=== PATIENT | male | born 1955 ===

== ENCOUNTER 2016-08-09 14:10 | Inpatient (IN) | payer MEDICARE ==
[2016-08-09 14:10] VITALS: PULSE 66
[2016-08-09] MEDS ORDERED: Morphine 4 MG/ML VIAL IVP ONE (14:59)
--- NOTE | 2016-08-09 15:38 | ED PDOC ---
Lower Extremity Pain/Injury Time Seen by Provider: 08/09/16 14:37 Chief Complaint (Nursing): Lower Extremity Problem/Injury Chief Complaint (Provider): Right leg pain History Per: Patient History/Exam Limitations: no limitations Onset/Duration Of Symptoms: Days (4) Current Symptoms Are (Timing): Still Present Severity: Moderate Additional History Per: Patient Additional Complaint(s): The pt is a 60yo male, PMHx of end stage renal disease on dialysis, multiple falls, chronic radiculopathy on right leg, chronic neuropathy, presents to the ED for evaluation s/p a fall sustained while in the shower 4 days ago. Pt reports sometimes his knee "gives out" and that was the reason for his fall; pt states he injured his right leg, and has bruising in his abdomen and pelvis. Pt also reports associated right thigh pain, right foot pain but denies any back pain. Also denies any LOC, head injuries, syncope, chest pain, shortness of breath. Of note, pt is currently on dialysis with visits every Tuesday, and Tuesday - states his last dialysis was done on 08/03/16 and he has missed the two subsequent dialysis visits since then. Pt offers no additional medical complaints. PCP: Dr. rBower Welt Wheeler: Dr. Rodriguez Past Medical History Reviewed: Historical Data, Nursing Documentation, Vital Signs Vital Signs: Last Vital Signs Temp 97.9 F 08/09/16 14:13 Pulse 84 08/09/16 14:13 Resp 20 08/09/16 14:13 BP 152/81 H 08/09/16 14:13 Pulse Ox 98 08/09/16 14:13 - Medical History PMH: Anemia, Anxiety, Arthritis, Atrial Fibrillation, CAD, CHF, Depression, Diabetes, Fractures (Right foot surgery), HTN, Hyperlipidemia, Pneumonia, End Stage Renal Disease, Chronic Kidney Disease, Sleep Apnea, TIA (2010) Denies: COPD, Hypercholesterolemia, Hypothyroidism, Rheumatoid Arthritis - Family History Family History: States: Unknown Family Hx - Immunization History Hx Tetanus Toxoid Vaccination: No Hx Influenza Vaccination: Yes (2013) Hx Pneumococcal Vaccination: Yes (2013) - Home Medications Home Medications: Ambulatory Orders Medication Instructions Recorded Alprazolam 0.5 mg PO HS #0 tablet 04/12/15 Metoprolol Tartrate [Lopressor] 50 mg PO BID #0 tab 04/12/15 cloNIDine [Catapres] 0.2 mg PO TID 09/29/15 Aspirin [Ecotrin] 81 mg PO DAILY 08/09/16 GlipiZIDE [Glucotrol] 10 mg PO BID 08/09/16 Sertraline [Zoloft] 50 mg PO HS 08/09/16 Sevelamer Carbonate [Renvela] 2,400 mg PO TID 08/09/16 Simvastatin [Zocor] 20 mg PO HS 08/09/16 - Allergies Allergies/Adverse Reactions: Allergies Allergy/AdvReac Type Severity Reaction Status Date / Time Penicillins Allergy ANAPHYLAXIS Verified 01/14/16 16:53 propofol Allergy ANAPHYLAXIS Verified 01/14/16 16:53 vitamin K2 Allergy SHORTNESS Verified 01/14/16 16:53 OF BREATH diphenhydramine HCl AdvReac ITCHING Verified 01/14/16 16:53 [From Benadryl] Review of Systems ROS Statement: Except As Marked, All Systems Reviewed And Found Negative Cardiovascular: Negative for: Chest Pain Respiratory: Negative for: Shortness of Breath Gastrointestinal: Positive for: Other (bruising to lower abdomen). Negative for : Abdominal Pain Musculoskeletal: Positive for: Leg Pain (right thigh pain), Foot Pain (right foot), Other (bruising to pelvis) Neurological: Negative for: Other (head injury, loss of consciousness) Physical Exam - Reviewed Nursing Documentation Reviewed: Yes Vital Signs Reviewed: Yes - Physical Exam Appears: Positive for: Well, Non-toxic, No Acute Distress Head Exam: Positive for: ATRAUMATIC, NORMAL INSPECTION, NORMOCEPHALIC Skin: Positive for: Normal Color, Warm, DRY Eye Exam: Positive for: Normal appearance Neck: Positive for: Normal, Supple Cardiovascular/Chest: Positive for: Regular Rate, Rhythm Respiratory: Positive for: Normal Breath Sounds. Negative for: Respiratory Distress Gastrointestinal/Abdominal: Positive for: Normal Exam, Soft, Other (ecchymosis noted to lower adomen and pelvis). Negative for: Tenderness Back: Positive for: Normal Inspection Extremity: Positive for: Normal ROM, Other (shunt on left forearm noted, normal appearance. ). Negative for: Deformity, Swelling Neurologic/Psych: Positive for: Alert, Oriented - Laboratory Results Result Diagrams: 08/09/16 15:42 08/09/16 15:42 - ECG ECG: Positive for: Interpreted By Me, Viewed By Me ECG Rhythm: Positive for: Normal QRS, Normal ST Segment, Atrial Fibrillation Rate: 80 O2 Sat by Pulse Oximetry: 98 (RA) Pulse Ox Interpretation: Normal - Physician Consult Information Time Consulting Physican Contacted: 16:00 Physician Contacted: Andrew Rodriguez Medical Decision Making Medical Decision Making: Time: 1450 Impression: 1. Multiple falls due to chronic neuropathy 2. Abdomen and pelvis injury r/o fracture and intrabdominal bleeding 3. Missed dialysis in setting of chronic renal faliure, possible volume overload , r/o emergent dialysis 4. Hyperkalemia Plan: -- CT AP -- XR Right foot -- XR Right thigh -- Bloodwork -- Morphine 4 mg IVP Reassess renal consult Dr Rodriguez urgent constanza;ysis Xray pelvis no acute findings Xray chest no acute findings Xray foot right reviewed: hardware failure notes. no acute findings- clinically pt complaining of toe pain from recent fall. CT abdomen pending Scribe Attestation: Documented by Amy Marshall acting as a scribe for Elliott Torres MD. Provider Attestation: All medical record entries made by the Scribe were at my direction and personally dictated by me. I have reviewed the chart and agree that the record accurately reflects my personal performance of the history, physical exam, medical decision making, and the department course for this patient. I have also personally directed, reviewed, and agree with the discharge instructions and disposition. Disposition - Clinical Impression Clinical Impression: Renal failure (ARF), acute on chronic, Hyperkalemia, Multiple falls - Patient ED Disposition Is Patient to be Admitted: Yes Discussed With DrRosa: Alverto Brower Doctor Will See Patient In The: ED Counseled Patient/Family Regarding: Studies Performed, Diagnosis - Disposition Disposition Time: 16:20 Condition: FAIR - Pt Status Changed To: Hospital Disposition Of: Inpatient - Admit Certification Admit to Inpatient:: After my assessment, the patient will require hospitalization for at least two midnights. This is because of the severity of symptoms shown, intensity of services needed, and/or the medical risk in this patient being treated as an outpatient. - POA Present On Arrival: Falls Or Trauma
[2016-08-09 16:04] LABS: CALCIUM 8.8 mg/dL (8.4-10.2)
[2016-08-09 16:22] LABS: BASO # 0.1 K/uL (0.0-0.2); BASO % 1.1 % (0.0-2.0); EOS # 0.3 K/uL (0.0-0.7); EOS % 3.1 % (0.0-4.0); HEMOGLOBIN 10.5 g/dL (12.0-18.0); LYMPH # 0.5 K/uL (1.0-4.3); LYMPH % 6.3 % (20.0-40.0); MEAN CELL VOLUME 95.1 fl (80.0-94.0); MEAN CORPUSCULAR HEMOGLOBIN 30.9 pg (27.0-31.0); MEAN CORPUSCULAR HGB CONC 32.5 g/dL (33.0-37.0); MEAN PLATELET VOLUME 9.7 fl (7.2-11.7); MONO # 0.9 K/uL (0.0-0.8); MONO % 11.5 % (0.0-10.0); NEUT # 6.4 K/uL (1.8-7.0); NRBC % 0.1 % (0.0-0.0); PLATELET COUNT 93 K/uL (130-400); RED CELL DISTRIBUTION WIDTH 17.3 % (11.5-14.5); WHITE BLOOD COUNT 8.2 K/uL (4.8-10.8)
[2016-08-09] MEDS ORDERED: Insulin Regular 100 units/ml IV STA (16:23)
[2016-08-09] MEDS ORDERED: Albuterol 0.083% Inhal Sol (2.5 mg/3 mL) UD INH STA (16:23)
[2016-08-09] MEDS ORDERED: Sod Polystyrene Sulf 15 gm/60 ml Oral Susp PO ONE (16:24)
[2016-08-09] MEDS ORDERED: Calcium Gluconate 4.6 MEQ in Sodium Chloride 0.9% 100 ML IV ONE (16:30)
[2016-08-09] MEDS ORDERED: Dextrose 50% SYRINGE Inj (50 ml) IVP ONE ×3 (16:30→18:45)
--- NOTE | 2016-08-09 16:30 | RAD ---
PROCEDURE: Right Foot Radiographs. HISTORY: Right leg pain, unspecified toe injury COMPARISON: None. FINDINGS: BONES: Evidence of hardware failure. Disruption of the endplate traversing a healed fracture of the proximal right 5th metatarsal. Fenestrated screws associated with the endplate in expected location without evidence of screw failure. JOINTS: Normal. SOFT TISSUES: Diffuse soft tissue swelling OTHER FINDINGS: None. IMPRESSION: Soft tissue swelling without acute articular or osseous abnormality. Evidence of hardware failure. The 5th metatarsal and plate is disrupted.
--- NOTE | 2016-08-09 16:32 | RAD ---
PROCEDURE: Radiographs of the pelvis. HISTORY: pelvic pain injury. Macro and T COMPARISON: None. FINDINGS: BONES: Pelvic Bones: Unremarkable. Hips: Hips mild and symmetrical degenerative changes both hips JOINTS: Sacroiliac Joints: Unremarkable Pubic Symphysis: Unremarkable. OTHER FINDINGS: Incompletely visualized hardware related to laminectomy and fusion lower lumbar spine IMPRESSION: No acute findings related to/accounting for the clinical presentation.
--- NOTE | 2016-08-09 16:33 | RAD ---
HISTORY: SOB COMPARISON: Comparison made with prior chest radiograph 02/06/2016 FINDINGS: LUNGS: Poor inspiration with low lung volumes, minor crowded bronchovascular markings and bibasilar atelectasis PLEURA: No significant pleural effusion identified, no pneumothorax apparent. CARDIOVASCULAR: Heart remains enlarged OSSEOUS STRUCTURES: No significant abnormalities. VISUALIZED UPPER ABDOMEN: Normal. OTHER FINDINGS: None. IMPRESSION: Cardiomegaly. Poor inspiration with low lung volumes, minor crowded bronchovascular markings and minor bibasilar atelectasis
[2016-08-09] MEDS ORDERED: Albuterol 0.083% Inhal Sol (2.5 mg/3 mL) UD ONE (16:52)
[2016-08-09] MEDS ORDERED: Sod Polystyrene Sulf 15 gm/60 ml Oral Susp ONE (16:52)
[2016-08-09] MEDS ORDERED: Dextrose 50% SYRINGE Inj (50 ml) ONE ×3 (16:52→18:43)
[2016-08-09 17:37] LABS: INR 1.2 (0.9-1.2); PARTIAL THROMBOPLASTIN TIME 39.5 Seconds (25.6-37.1); PROTHROMBIN TIME 13.9 Seconds (9.8-13.1)
[2016-08-09 17:54] LABS: BASOPHIL 1 % (0-2); EOSINOPHIL 5 % (0-7); LYMPHOCYTE 8 % (20-50); MONOCYTE 12 % (0-10); NEUTROPHIL 74 % (42-75); TOTAL CELLS COUNTED 100
[2016-08-09 17:55] LABS: ANISOCYTOSIS SLIGHT; PLATELET ESTIMATE SLIGHTLY DECREASED (NORMAL)
--- NOTE | 2016-08-09 22:43 | CP.PCM.HP ---
History of Present Illness - History of Present Illness History of Present Illness: 60 years old H/M with h/o multiple medical problems , presented with frequent falls, and multiple skin contusions. Pt. has bilateral lower ext weakness rt. > lt of lower ext.. Pt. has been having progressive weakness of both lower extremities due to both radiculopathy and prepheral neuropathy. he had spine surgery done few years ago. Review of Systems - EENT Eyes: Other - Reproductive: Male Additional comments: pain and itching of the foreskin of the penis. - Neurological Additional comments: bilateral lowe ext weakness rt>lt Past Patient History - Infectious Disease Hx of Infectious Diseases: None - Past Medical History & Family History Past Medical History?: Yes - Past Social History Smoking Status: Never Smoked - CARDIAC Hx Atrial Fibrillation: Yes Hx Congestive Heart Failure: Yes Hx Hypercholesterolemia: No Hx Hypertension: Yes - PULMONARY Hx Chronic Obstructive Pulmonary Disease (COPD): No Hx Pneumonia: Yes Hx Sleep Apnea: Yes - NEUROLOGICAL Hx Transient Ischemic Attacks (TIA): Yes (2010) - HEENT Hx HEENT Problems: Yes - RENAL Hx Chronic Kidney Disease: Yes - ENDOCRINE/METABOLIC Hx Hypothyroidism: No - HEMATOLOGICAL/ONCOLOGICAL Hx Anemia: Yes - INTEGUMENTARY Hx Dermatological Problems: Yes (Diabetic ulcers) - MUSCULOSKELETAL/RHEUMATOLOGICAL Hx Arthritis: Yes Hx Fractures: Yes (Right foot surgery) Hx Rheumatoid Arthritis: No - GASTROINTESTINAL Hx Gastrointestinal Disorders: Yes Hx Constipation: Yes Hx Diarrhea: Yes - GENITOURINARY/GYNECOLOGICAL Hx Genitourinary Disorders: Yes - PSYCHIATRIC Hx Anxiety: Yes Hx Depression: Yes - SURGICAL HISTORY Hx Surgeries: Yes Hx Amputation: Yes (left hand) - ANESTHESIA Hx Anesthesia: Yes Hx Anesthesia Reactions: Yes (Coded x 2) Hx Malignant Hyperthermia: No Meds Allergies/Adverse Reactions: Allergies Allergy/AdvReac Type Severity Reaction Status Date / Time Penicillins Allergy ANAPHYLAXIS Verified 01/14/16 16:53 propofol Allergy ANAPHYLAXIS Verified 01/14/16 16:53 vitamin K2 Allergy SHORTNESS Verified 01/14/16 16:53 OF BREATH diphenhydramine HCl AdvReac ITCHING Verified 01/14/16 16:53 [From Benadryl] Physical Exam - Head Exam Head Exam: ATRAUMATIC, NORMOCEPHALIC - Eye Exam Additional comments: Bilateral decreased visual acuity. - ENT Exam ENT Exam: Mucous Membranes Moist - Respiratory Exam Respiratory Exam: Clear to Auscultation Bilateral, NORMAL BREATHING PATTERN - Cardiovascular Exam Cardiovascular Exam: REGULAR RHYTHM - GI/Abdominal Exam GI & Abdominal Exam: Normal Bowel Sounds, Soft - Extremities Exam Additional comments: Rt. more than Lt lower ext. weakness - Skin Additional comments: Multiple skin contusions Results - Vital Signs Recent Vital Signs: Last Vital Signs Temp 98.9 F 08/09/16 20:19 Pulse 98 H 08/09/16 20:19 Resp 18 08/09/16 20:19 BP 137/90 08/09/16 20:19 Pulse Ox 95 08/09/16 20:19 - Labs Result Diagrams: 08/09/16 15:42 08/09/16 15:42 Labs: Laboratory Results - last 24 hr 08/09/16 21:14 POC Glucose (mg/dL) 98 Assessment & Plan - Assessment and Plan (Free Text) Assessment: Frequent falls Rt. > Lt lower ext weakness Hyperkalemia ESRD on HD Chronic a.fib IDDM Plan: Stat HD Kayxelate Continue current medications PT - Date & Time Date: 08/09/16 Time: 15:00
[2016-08-10] MEDS ORDERED: Dextrose 50% SYRINGE Inj (50 ml) IVP STA (05:33)
[2016-08-10] MEDS ORDERED: Insulin Regular 100 units/ml SC SCH (07:30)
--- NOTE | 2016-08-10 08:23 | CT ---
PROCEDURE: CT Abdomen and Pelvis bowel contrast. HISTORY: abd injury fall COMPARISON: 04/08/2015. TECHNIQUE: Contiguous axial images of the abdomen and pelvis. No oral or IV contrast given. Coronal and Sagittal reformats generated. Please note that due to lack of intravenous and oral contrast, evaluation of soft tissue structures and bowel is limited. Radiation dose: Total exam DLP = 1128.46 mGy-cm. This CT exam was performed using one or more of the following dose reduction techniques: Automated exposure control, adjustment of the mA and/or kV according to patient size, and/or use of iterative reconstruction technique. FINDINGS: LOWER THORAX: Mild bibasilar atelectatic changes noted. Mildly enlarged heart. No pericardial effusion. Coronary arterial calcifications. LIVER: Unenhanced appearance of the liver is relatively unremarkable. Question of irregularity of the liver contour. No intrahepatic biliary ductal dilatation. Mild perihepatic ascites. Mild periportal edema GALLBLADDER AND BILE DUCTS: Moderately enlarged gallbladder. Small amount surrounding fluid. PANCREAS: Unremarkable. No mass. No ductal dilatation. SPLEEN: Enlarged spleen ADRENALS: Unremarkable. KIDNEYS AND URETERS: Shrunken lung kidneys bilaterally. Possible sub centimeter hypodensity in the interpolar segment of the right kidney likely cysts. No hydronephrosis. The distal ureters are suboptimally seen. BLADDER: Bladder is near completely collapsed limiting evaluation. REPRODUCTIVE: Seminal vesicles are some are symmetrical. The prostate is not enlarged. APPENDIX: Unremarkable. BOWEL: No bowel obstruction. Collapsed distal colon limits evaluation. Small amount of stool seen in the distal ileum which could represent ileocecal valve dysfunction. Moderately distended stomach. Questionable thickening of the wall of the 1st portion of the duodenum but some amount of fluid surrounding it. Minimal fluid seen along both pericolic gutters. PERITONEUM: Small amount of fluid as mentioned before. No definite intra peritoneal free air. LYMPH NODES: Scattered retroperitoneal lymphadenopathy seen. Scattered small bilateral pelvic wall lymph nodes also noted. Mildly enlarged inguinal region lymph nodes. VASCULATURE: Scattered calcification of the abdominal aorta noted. Calcified renal, pelvic and mesenteric vessels. BONES: Degenerate changes of the osseous structures. L4-L5 fixation rods noted. Severe narrowing of the L4-L5 intervertebral joint space. Possible spacer versus calcified disc at L3-L4. OTHER FINDINGS: Previously identified left inner thigh graft is not seen. IMPRESSION: Moderately enlarged gallbladder with small amount of surrounding fluid. Clinical correlation requested for evaluation of acute cholecystitis. No bowel obstruction however, please note that due to lack of administration of IV and oral contrast, evaluation of bowel is somewhat limited. Questionable thickening of the wall of the 1st portion of the duodenum with surrounding fluid noted. Underlying inflammation should be considered. Given history trauma, injury should also be considered. Small amount of perihepatic ascites. Questionable nodular contour of the liver. Splenomegaly as before. Scattered lymphadenopathy as described above. Please note that this report is in general agreement with the preliminary report provided by [facility].
[2016-08-10 09:22] VITALS: BMI 31.4
--- NOTE | 2016-08-10 09:50 | CARD ---
APPROVED REPORT EKG Measurement Heart [id number] <Conclusion> Atrial fibrillation Left anterior fascicular block Anterior infarct, age undetermined Abnormal ECG
[2016-08-10] MEDS: Dextrose 50% SYRINGE Inj (50 ml) IVP PRN ×2 (12:03→15:51)
--- NOTE | 2016-08-10 14:37 | CP.PCM.CON ---
History of Present Illness - History of Present Illness History of Present Illness: 60 y/o male with ESRD on maintenance HD, CHFm chronic A.fib, IDDM, chronic Lt foot ulcer B/L leg weakness Pt was dialysed last pm. K+ was 6.8 was admitted yesterday after he sustained a fall & missed his scheduled dialysis. Past Patient History - Infectious Disease Hx of Infectious Diseases: None - Past Medical History & Family History Past Medical History?: Yes - Past Social History Smoking Status: Never Smoked - CARDIAC Hx Atrial Fibrillation: Yes Hx Congestive Heart Failure: Yes Hx Hypercholesterolemia: No Hx Hypertension: Yes - PULMONARY Hx Chronic Obstructive Pulmonary Disease (COPD): No Hx Pneumonia: Yes Hx Sleep Apnea: Yes - NEUROLOGICAL Hx Transient Ischemic Attacks (TIA): Yes (2010) - HEENT Hx HEENT Problems: Yes - RENAL Hx Chronic Kidney Disease: Yes - ENDOCRINE/METABOLIC Hx Hypothyroidism: No - HEMATOLOGICAL/ONCOLOGICAL Hx Anemia: Yes - INTEGUMENTARY Hx Dermatological Problems: Yes (Diabetic ulcers) - MUSCULOSKELETAL/RHEUMATOLOGICAL Hx Arthritis: Yes Hx Fractures: Yes (Right foot surgery) Hx Rheumatoid Arthritis: No - GASTROINTESTINAL Hx Gastrointestinal Disorders: Yes Hx Constipation: Yes Hx Diarrhea: Yes - GENITOURINARY/GYNECOLOGICAL Hx Genitourinary Disorders: Yes - PSYCHIATRIC Hx Anxiety: Yes Hx Depression: Yes - SURGICAL HISTORY Hx Surgeries: Yes Hx Amputation: Yes (left hand) - ANESTHESIA Hx Anesthesia: Yes Hx Anesthesia Reactions: Yes (Coded x 2) Hx Malignant Hyperthermia: No Meds Allergies/Adverse Reactions: Allergies Allergy/AdvReac Type Severity Reaction Status Date / Time Penicillins Allergy ANAPHYLAXIS Verified 01/14/16 16:53 propofol Allergy ANAPHYLAXIS Verified 01/14/16 16:53 vitamin K2 Allergy SHORTNESS Verified 01/14/16 16:53 OF BREATH diphenhydramine HCl AdvReac ITCHING Verified 01/14/16 16:53 [From Benadryl] - Medications Medications: Current Medications Alprazolam (Xanax) 0.5 mg PO HS [facility] Aspirin (Ecotrin) 81 mg PO DAILY [facility] Last Admin: 08/10/16 09:37 Dose: 81 mg Atorvastatin Calcium (Lipitor) 10 mg PO HS [facility] Clonidine HCl (Catapres) 0.2 mg PO TID [facility] Last Admin: 08/10/16 13:14 Dose: 0.2 mg Dextrose (Dextrose 50% Inj) 50 ml IVP PRN PRN PRN Reason: Hypoglycemia Last Admin: 08/10/16 12:03 Dose: 50 ml Heparin Sodium (Porcine) (Heparin) 5,000 units SC Q12 [facility] PRN Reason: Protocol Last Admin: 08/10/16 09:37 Dose: 5,000 units Hydromorphone HCl (Dilaudid) 1 mg IVP Q4 PRN PRN Reason: Pain, severe (8-10) Last Admin: 08/10/16 13:29 Dose: 1 mg Vancomycin HCl 500 mg/ Sodium (Chloride) 100 mls @ 100 mls/hr IVPB TTS [facility] Last Admin: 08/10/16 09:36 Dose: 100 mls/hr Metoprolol Tartrate (Lopressor) 50 mg PO BID [facility] Last Admin: 08/10/16 09:35 Dose: 50 mg Mupirocin (Bactroban Ointment) 1 applic TOP BID [facility] Last Admin: 08/10/16 13:15 Dose: 1 applic Sertraline HCl (Zoloft) 50 mg PO HS [facility] Sevelamer HCl (Renagel) 2,400 mg PO TID [facility] Last Admin: 08/10/16 13:15 Dose: 2,400 mg Physical Exam - Constitutional Appears: No Acute Distress - Head Exam Head Exam: ATRAUMATIC, NORMOCEPHALIC - Eye Exam Additional comments: No icterus - ENT Exam ENT Exam: Mucous Membranes Dry - Neck Exam Additional comments: JVD + - Respiratory Exam Additional comments: Lungs clear - Cardiovascular Exam Cardiovascular Exam: Irregular Rhythm - GI/Abdominal Exam GI & Abdominal Exam: Soft - Extremities Exam Additional comments: 1+ b/l pedal edema. Lt foot is dressed Results - Vital Signs Recent Vital Signs: Last Vital Signs Temp 97.6 F 08/10/16 08:16 Pulse 73 08/10/16 13:14 Resp 20 08/10/16 08:16 BP 127/77 08/10/16 13:14 Pulse Ox 100 08/10/16 08:16 - Labs Result Diagrams: 08/09/16 15:42 08/09/16 15:42 Labs: Laboratory Results - last 24 hr 08/09/16 08/09/16 08/09/16 17:51 18:01 18:40 POC Glucose (mg/dL) 45 L 116 H 47 L 08/09/16 08/10/16 08/10/16 21:14 05:25 06:19 POC Glucose (mg/dL) 98 38 L* 89 08/10/16 08/10/16 08/10/16 10:56 11:28 11:52 POC Glucose (mg/dL) 50 L 54 L 54 L 08/10/16 12:28 POC Glucose (mg/dL) 125 H Assessment & Plan - Assessment and Plan (Free Text) Assessment: ESRD on [facility] HD Hx/o CHF, Volume controlled Chr. A>fib IDDM S/P fall Plan: Stable on dialysis. Will continue dialysis TTS
--- NOTE | 2016-08-10 16:08 | CP.PCM.PN ---
Subjective - Date & Time of Evaluation Date of Evaluation: 08/10/16 Time of Evaluation: 10:30 - Subjective Subjective: blood sugar was dropping to 50 . pt. was slightly confused. Objective - Vital Signs/Intake and Output Vital Signs (last 24 hours): Temp Pulse Resp BP Pulse Ox 98.5 F 81 18 116/58 L 96 08/10/16 16:03 08/10/16 16:03 08/10/16 16:03 08/10/16 16:03 08/10/16 16:03 - Medications Medications: Current Medications Alprazolam (Xanax) 0.5 mg PO HS [facility] Aspirin (Ecotrin) 81 mg PO DAILY [facility] Last Admin: 08/10/16 09:37 Dose: 81 mg Atorvastatin Calcium (Lipitor) 10 mg PO HS [facility] Clonidine HCl (Catapres) 0.2 mg PO TID [facility] Last Admin: 08/10/16 13:14 Dose: 0.2 mg Dextrose (Dextrose 50% Inj) 50 ml IVP PRN PRN PRN Reason: Hypoglycemia Last Admin: 08/10/16 15:51 Dose: 50 ml Heparin Sodium (Porcine) (Heparin) 5,000 units SC Q12 [facility] PRN Reason: Protocol Last Admin: 08/10/16 09:37 Dose: 5,000 units Hydromorphone HCl (Dilaudid) 1 mg IVP Q4 PRN PRN Reason: Pain, severe (8-10) Last Admin: 08/10/16 13:29 Dose: 1 mg Vancomycin HCl 500 mg/ Sodium (Chloride) 100 mls @ 100 mls/hr IVPB TTS [facility] Last Admin: 08/10/16 09:36 Dose: 100 mls/hr Metoprolol Tartrate (Lopressor) 50 mg PO BID [facility] Last Admin: 08/10/16 09:35 Dose: 50 mg Mupirocin (Bactroban Ointment) 1 applic TOP BID [facility] Last Admin: 08/10/16 13:15 Dose: 1 applic Sertraline HCl (Zoloft) 50 mg PO HS [facility] Sevelamer HCl (Renagel) 2,400 mg PO TID [facility] Last Admin: 08/10/16 13:15 Dose: 2,400 mg - Labs Labs: PT 13.9 Seconds (9.8-13.1) H 08/09/16 15:42 INR 1.2 (0.9-1.2) 08/09/16 15:42 APTT 39.5 Seconds (25.6-37.1) H 08/09/16 15:42 - Head Exam Head Exam: ATRAUMATIC, NORMOCEPHALIC - Eye Exam Eye Exam: EOMI, PERRL - ENT Exam ENT Exam: Mucous Membranes Moist, Normal Exam - Neck Exam Neck Exam: Full ROM - Respiratory Exam Respiratory Exam: Clear to Ausculation Bilateral, NORMAL BREATHING PATTERN - Cardiovascular Exam Cardiovascular Exam: Irregular Rhythm Assessment and Plan - Assessment and Plan (Free Text) Assessment: Hypoglycemia Frequent falls Rt. > Lt lower ext weakness Hyperkalemia ESRD on HD Chronic a.fib NIDDM Plan: D50 PRN for blood sugar Physical therapy Continue current medications
[2016-08-11] MEDS: Dextrose 50% SYRINGE Inj (50 ml) IVP PRN (05:34)
--- NOTE | 2016-08-11 09:26 | PQF CHF ---
This form is a permanent part of the medical record 08/11/16 Dr. Brower, In the H&P under the the [facility] template there is documentation of Hx CHF ( yes). Please clarify the type and acuity of heart failure if known. Clarification of your documentation is requested to better reflect the severity of illness and intensity of treatment of your patient. Indicators present [x] Diagnosis of a history of CHF [] BNP > 200 [] Imaging Finding of Pulmonary Edema /Pleural Effusions [] Fluid/Volume Overload [] Pitting edema [] Ejection Fraction < 40% (Indicative of Systolic Heart Failure) [] Ejection Fraction > 40% (Indicative of Diastolic Heart Failure) [] Dyspnea / Orthopenea / Paroxysmal Nocturnal Dyspnea [] Other: Location in the medical record that reflects the above clinical findings: [] Treatment Provided: [] PHYSICIAN'S RESPONSE Based on your medical judgment of the clinical indicators outlined above, are you treating this patient for a known or suspected: [] Acute CHF [] Systolic [] Diastolic [] Combined [] Chronic CHF [] Systolic [] Diastolic [] Combined [] Acute on Chronic CHF []Systolic [] Diastolic [] Combined [] CHF due hypertension [] Acute systolic []Chronic systolic [] Acute/ chronic systolic [] Other, please indicate: [] [] If Unable to Determine, please check the box, sign and date. Present On Admission (POA) Indicator: [] Present at the time of admission [] Not present at the time of admission [] Clinically Undetermined In responding to this query, please exercise your independent professional judgment. The fact that a question is asked does not imply that any particular answer is desired or expected. Thank you for your clarification on this documentation. If you have any questions please call: EXTENSION [phone] * Thank you, Carloe Sheets RN CDMP MTDD
--- NOTE | 2016-08-11 10:05 | CP.PCM.PN ---
Subjective - Date & Time of Evaluation Date of Evaluation: 08/11/16 Time of Evaluation: 10:01 - Subjective Subjective: Patient and bed appeared to be comfortable No chest pain no shortness of breath Patient noncompliance with the dialysis he keep missing intermittently hemodialysis. Physical exam Patient awake not in any distress conscious Chest no significant problems Heart no rubs irregular with chronic A. fib Abdomen soft Extremity trace edema and just about all his toes having some degree of blisters black in color Impression and plan Patient need hemodialysis throughout her way I spoke to the nurse order was given To repeat stat BMP and complete metabolic profile and CBC Ultrafiltration about 3000 KG needed to be removed Potassium bath 2 mEq and less potassium came very high then we will change it to 1 mEq Bicarbonate bath 34 Calcium bath 2.5 Patient admitted with hyperkalemia missing hemodialysis volume overloaded also peripheral vascular disease diabetes mellitus chronic A. fib. Recurrent fall Objective - Vital Signs/Intake and Output Vital Signs (last 24 hours): Temp Pulse Resp BP Pulse Ox 97.9 F 76 20 113/69 97 08/11/16 08:38 08/11/16 08:38 08/11/16 08:38 08/11/16 08:38 08/11/16 08:38 - Medications Medications: Current Medications Alprazolam (Xanax) 0.5 mg PO HS [facility] Last Admin: 08/10/16 21:23 Dose: 0.5 mg Aspirin (Ecotrin) 81 mg PO DAILY [facility] Last Admin: 08/11/16 09:11 Dose: 81 mg Atorvastatin Calcium (Lipitor) 10 mg PO HS [facility] Last Admin: 08/10/16 21:21 Dose: 10 mg Clonidine HCl (Catapres) 0.2 mg PO TID [facility] Last Admin: 08/11/16 09:11 Dose: Not Given Dextrose (Dextrose 50% Inj) 50 ml IVP PRN PRN PRN Reason: Hypoglycemia Last Admin: 08/11/16 05:34 Dose: 50 ml Heparin Sodium (Porcine) (Heparin) 5,000 units SC Q12 [facility] PRN Reason: Protocol Last Admin: 08/11/16 09:10 Dose: 5,000 units Hydromorphone HCl (Dilaudid) 1 mg IVP Q4 PRN PRN Reason: Pain, severe (8-10) Last Admin: 08/10/16 13:29 Dose: 1 mg Vancomycin HCl 500 mg/ Sodium (Chloride) 100 mls @ 100 mls/hr IVPB TTS [facility] Last Admin: 08/10/16 09:36 Dose: 100 mls/hr Metoprolol Tartrate (Lopressor) 50 mg PO BID [facility] Last Admin: 08/11/16 09:11 Dose: Not Given Mupirocin (Bactroban Ointment) 1 applic TOP BID [facility] Last Admin: 08/11/16 09:10 Dose: 1 applic Sertraline HCl (Zoloft) 50 mg PO HS [facility] Last Admin: 08/10/16 21:21 Dose: 50 mg Sevelamer HCl (Renagel) 2,400 mg PO TID [facility] Last Admin: 08/11/16 09:10 Dose: 2,400 mg - Labs Labs: PT 13.9 Seconds (9.8-13.1) H 08/09/16 15:42 INR 1.2 (0.9-1.2) 08/09/16 15:42 APTT 39.5 Seconds (25.6-37.1) H 08/09/16 15:42 - Constitutional Appears: No Acute Distress - Respiratory Exam Respiratory Exam: absent: Chest Wall Tenderness - Cardiovascular Exam Cardiovascular Exam: absent: Rubs - Back Exam Back Exam: absent: CVA tenderness (L), CVA tenderness (R) - Neurological Exam Neurological Exam: Alert
[2016-08-11] MEDS ORDERED: Epoetin Alfa 20000 UNIT/ML (RENAL DOSE) IV SCH (10:12)
[2016-08-11 11:04] LABS: HEMOGLOBIN 9.9 g/dL (12.0-18.0); MEAN CELL VOLUME 94.4 fl (80.0-94.0); MEAN CORPUSCULAR HEMOGLOBIN 31.1 pg (27.0-31.0); RBC 3.2 Mil/uL (4.40-5.90); RED CELL DISTRIBUTION WIDTH 17.7 % (11.5-14.5)
[2016-08-11 11:14] LABS: ALB/GLOB RATIO 0.8 (1.0-2.1); ALBUMIN 3.6 g/dL (3.5-5.0); CALCIUM 8.8 mg/dL (8.4-10.2)
[2016-08-11] MEDS ORDERED: Sod Polystyrene Sulf 15 gm/60 ml Oral Susp PO ONE (12:15)
--- NOTE | 2016-08-11 17:18 | RAD ---
PROCEDURE: Radiographs of the Chest and Right Ribs. HISTORY: fall COMPARISON: 08/09/2016. TECHNIQUE: Frontal radiograph of the chest and multiple oblique radiographs of the right ribs were obtained. FINDINGS: RIGHT RIBS: Will LUNGS: Clear. PLEURA: No pneumothorax or pleural fluid. CARDIOVASCULAR: No radiographic findings to suggest acute or significant cardiovascular disease. OTHER FINDINGS: None. IMPRESSION: No acute findings related to/accounting for the clinical presentation. No significant interval change compared to the prior examination(s).
--- NOTE | 2016-08-11 22:22 | CP.PCM.PN ---
Subjective - Date & Time of Evaluation Date of Evaluation: 08/11/16 Time of Evaluation: 16:20 - Subjective Subjective: Fell in his way to the bathroom. Objective - Vital Signs/Intake and Output Vital Signs (last 24 hours): Temp Pulse Resp BP Pulse Ox 97.2 F L 70 20 141/83 98 08/11/16 18:59 08/11/16 18:59 08/11/16 18:59 08/11/16 18:59 08/11/16 18:59 - Medications Medications: Current Medications Alprazolam (Xanax) 0.5 mg PO [facility] Last Admin: 08/10/16 21:23 Dose: 0.5 mg Aspirin (Ecotrin) 81 mg PO DAILY [facility] Last Admin: 08/11/16 09:11 Dose: 81 mg Atorvastatin Calcium (Lipitor) 10 mg PO HS [facility] Last Admin: 08/10/16 21:21 Dose: 10 mg Clonidine HCl (Catapres) 0.2 mg PO TID [facility] Last Admin: 08/11/16 17:34 Dose: Not Given Dextrose (Dextrose 50% Inj) 50 ml IVP PRN PRN PRN Reason: Hypoglycemia Last Admin: 08/11/16 05:34 Dose: 50 ml Epoetin Alexy (Procrit) 8,000 unit IV MWF [facility] Heparin Sodium (Porcine) (Heparin) 5,000 units SC Q12 [facility] PRN Reason: Protocol Last Admin: 08/11/16 09:10 Dose: 5,000 units Hydromorphone HCl (Dilaudid) 1 mg IVP Q4 PRN PRN Reason: Pain, severe (8-10) Last Admin: 08/10/16 13:29 Dose: 1 mg Vancomycin HCl 500 mg/ Sodium (Chloride) 100 mls @ 100 mls/hr IVPB TTS [facility] Last Admin: 08/10/16 09:36 Dose: 100 mls/hr Metoprolol Tartrate (Lopressor) 50 mg PO BID [facility] Last Admin: 08/11/16 17:34 Dose: Not Given Mupirocin (Bactroban Ointment) 1 applic TOP BID [facility] Last Admin: 08/11/16 17:33 Dose: 1 applic Sertraline HCl (Zoloft) 50 mg PO HS [facility] Last Admin: 08/10/16 21:21 Dose: 50 mg Sevelamer HCl (Renagel) 2,400 mg PO TID [facility] Last Admin: 08/11/16 17:34 Dose: 2,400 mg - Labs Labs: 08/11/16 10:30 08/11/16 10:30 PT 13.9 Seconds (9.8-13.1) H 08/09/16 15:42 INR 1.2 (0.9-1.2) 08/09/16 15:42 APTT 39.5 Seconds (25.6-37.1) H 08/09/16 15:42 - Head Exam Head Exam: ATRAUMATIC, NORMOCEPHALIC - Eye Exam Eye Exam: Normal appearance - ENT Exam ENT Exam: Mucous Membranes Moist, Normal Exam - Neck Exam Neck Exam: Full ROM - Respiratory Exam Respiratory Exam: NORMAL BREATHING PATTERN - Cardiovascular Exam Cardiovascular Exam: Irregular Rhythm - GI/Abdominal Exam GI & Abdominal Exam: Soft Additional comments: multiple skin contusions secondary to fall. - Neurological Exam Additional comments: bilateral lower ext. weakness rt. >lt. Assessment and Plan - Assessment and Plan (Free Text) Assessment: Hypoglycemia Frequent falls Rt. > Lt lower ext weakness Hyperkalemia ESRD on HD Chronic a.fib NIDDM Plan: Fall precaution PT , continue current mangement and medications
--- NOTE | 2016-08-12 10:48 | CP.PCM.PN ---
Subjective - Date & Time of Evaluation Date of Evaluation: 08/12/16 Time of Evaluation: 10:45 - Subjective Subjective: Patient appears to be comfortable at the present however there was noted the fall No chest pain no shortness of breath Objective - Vital Signs/Intake and Output Vital Signs (last 24 hours): Temp Pulse Resp BP Pulse Ox 98.9 F 98 H 18 149/92 H 98 08/12/16 08:00 08/12/16 08:57 08/12/16 08:00 08/12/16 08:57 08/12/16 08:00 - Medications Medications: Current Medications Alprazolam (Xanax) 0.5 mg PO [facility] Last Admin: 08/12/16 01:24 Dose: 0.5 mg Aspirin (Ecotrin) 81 mg PO DAILY [facility] Last Admin: 08/12/16 08:58 Dose: 81 mg Atorvastatin Calcium (Lipitor) 10 mg PO HS [facility] Last Admin: 08/12/16 01:24 Dose: 10 mg Calcitriol (Rocaltrol) 0.25 mcg PO DAILY [facility] Clonidine HCl (Catapres) 0.2 mg PO TID [facility] Last Admin: 08/12/16 08:56 Dose: 0.2 mg Dextrose (Dextrose 50% Inj) 50 ml IVP PRN PRN PRN Reason: Hypoglycemia Last Admin: 08/11/16 05:34 Dose: 50 ml Epoetin Alexy (Procrit) 8,000 unit IV MWF [facility] Heparin Sodium (Porcine) (Heparin) 5,000 units SC Q12 [facility] PRN Reason: Protocol Last Admin: 08/12/16 09:11 Dose: Not Given Hydromorphone HCl (Dilaudid) 1 mg IVP Q4 PRN PRN Reason: Pain, severe (8-10) Last Admin: 08/12/16 09:09 Dose: 1 mg Vancomycin HCl 500 mg/ Sodium (Chloride) 100 mls @ 100 mls/hr IVPB TTS [facility] Last Admin: 08/12/16 08:59 Dose: 100 mls/hr Metoprolol Tartrate (Lopressor) 50 mg PO BID [facility] Last Admin: 08/12/16 08:57 Dose: 50 mg Mupirocin (Bactroban Ointment) 1 applic TOP BID [facility] Last Admin: 08/11/16 17:33 Dose: 1 applic Sertraline HCl (Zoloft) 50 mg PO [facility] Last Admin: 08/12/16 01:24 Dose: 50 mg Sevelamer HCl (Renagel) 2,400 mg PO TID [facility] Last Admin: 08/12/16 08:58 Dose: 2,400 mg - Labs Labs: 08/11/16 10:30 08/11/16 10:30 PT 13.9 Seconds (9.8-13.1) H 08/09/16 15:42 INR 1.2 (0.9-1.2) 08/09/16 15:42 APTT 39.5 Seconds (25.6-37.1) H 08/09/16 15:42 - Constitutional Appears: No Acute Distress - ENT Exam ENT Exam: Mucous Membranes Moist - Respiratory Exam Respiratory Exam: absent: Chest Wall Tenderness - Cardiovascular Exam Cardiovascular Exam: absent: Rubs - GI/Abdominal Exam GI & Abdominal Exam: Soft. absent: Guarding - Extremities Exam Extremities Exam: absent: Calf Tenderness - Back Exam Back Exam: absent: CVA tenderness (L), CVA tenderness (R) - Neurological Exam Neurological Exam: Alert Assessment and Plan (1) Hyperkalemia Status: Acute (2) CKD (chronic kidney disease) requiring chronic dialysis Assessment & Plan: End stage renal disease patient tolerated hemodialysis yesterday Hyperphosphatemia noted serum phosphorus is very high 8.8 because patient noncompliance he does not take the medication and the phosphorus binder. Patient is already on Renagel 3 tablets 3 times a day Patient is not compliance with the diet as well Continue counseling Continue hemodialysis and monitoring PTH noted.. I added calcitriol Status: Acute
[2016-08-12 12:15] VITALS: BP 138/84; PULSE 91
[2016-08-12 12:42] VITALS: RESP 20; TEMP 97.3; O2SAT 95
== END 2016-08-12 19:02 | DRG 640 ==
LOC: H.ER 14:10 → H.ERHOLD 16:26 → H.TEL 19:19
PROVIDERS: ADMIT Internal Medicine; ATTEND Internal Medicine
PROC: 5A1D60Z (ICD-10-PCS; principal; 2016-08-09)
DX: E87.5 Hyperkalemia (principal); N18.6 End stage renal disease; I13.2 Hypertensive heart and chronic kidney disease with heart failure and with stage 5 chronic kidney disease, or end stage renal disease; N17.9 Acute kidney failure, unspecified; E11.22 Type 2 diabetes mellitus with diabetic chronic kidney disease; E11.649 Type 2 diabetes mellitus with hypoglycemia without coma; I48.2 Chronic atrial fibrillation; G62.9 Polyneuropathy, unspecified; E83.39 Other disorders of phosphorus metabolism; W18.2XXA Fall in (into) shower or empty bathtub, initial encounter; F32.9 Major depressive disorder, single episode, unspecified; E78.5 Hyperlipidemia, unspecified; I25.10 Atherosclerotic heart disease of native coronary artery without angina pectoris; R29.6 Repeated falls; I50.9 Heart failure, unspecified; Z79.4 Long term (current) use of insulin; M54.10 Radiculopathy, site unspecified; Z99.2 Dependence on renal dialysis; Z86.73 Personal history of transient ischemic attack (TIA), and cerebral infarction without residual deficits; Z91.11 Patient's noncompliance with dietary regimen; Z91.15 Patient's noncompliance with renal dialysis; Z91.14 Patient's other noncompliance with medication regimen; Y93.E1 Activity, personal bathing and showering; Y92.002 Bathroom of unspecified non-institutional (private) residence as the place of occurrence of the external cause; Z88.4 Allergy status to anesthetic agent; Z88.0 Allergy status to penicillin; F41.9 Anxiety disorder, unspecified; I73.9 Peripheral vascular disease, unspecified; G47.30 Sleep apnea, unspecified; E87.70 Fluid overload, unspecified

== ENCOUNTER 2016-09-14 08:04 | Inpatient (IN) | payer MEDICARE ==
[2016-09-14 08:05] VITALS: PULSE 66
[2016-09-14 08:11] VITALS: BMI 28.7
--- NOTE | 2016-09-14 08:36 | ED PDOC ---
HPI: Male Pain Time Seen by Provider: 09/14/16 08:10 Chief Complaint (Nursing): Male Genitourinary Chief Complaint (Provider): Penile pain and testicular pain History Per: Patient History/Exam Limitations: no limitations Onset/Duration Of Symptoms: Days (3) Current Symptoms Are (Timing): Gone Now Quality Of Discomfort: "Pain" Additional Complaint(s): The patient is a 60yo male, past medical history including DM, CHF, CAD, end stage renal disease, chronic kidney disease, currently on dialysis (tuesday, and tuesday), presents to the ED for evaluation of penile and right testicular pain for the past three days. Patient reports he had difficulty with "pulling back" his foreskin and saw a urologist who performed a circumcision on him; patient states after the procedure, he was informed he had "growth" on his glans. Patient states he has had testicular pain after the procedure that is worse when he moves. Patient also reports noticing some penile discharge as well. He states he has been taking Vicodin, with last dose taken prior to arrival and has relief. Currently, patient states he is asymptomatic. He denies any chest pain, shortness of breath, fever, chills and currently offers no additional medical complaints. Of note, patient does not produce urine and denies being sexually active. PCP: Dr. Brower Urologist: Dr. Sen Appellate Court Clerk: Dr. Rodriguez Past Medical History Reviewed: Historical Data, Nursing Documentation, Vital Signs Vital Signs: Last Vital Signs Temp 97 F L 09/14/16 08:10 Pulse 56 L 09/14/16 08:10 Resp 16 09/14/16 08:10 BP 148/73 09/14/16 08:10 Pulse Ox 99 09/14/16 08:10 - Medical History PMH: Anemia, Anxiety, Arthritis, Atrial Fibrillation, CAD, CHF, Depression, Diabetes, Fractures (Right foot surgery), HTN, Hyperlipidemia, Pneumonia, End Stage Renal Disease, Chronic Kidney Disease, Sleep Apnea, TIA (2010) Denies: COPD, Hypercholesterolemia, Hypothyroidism, Rheumatoid Arthritis - Family History Family History: States: Unknown Family Hx - Immunization History Hx Tetanus Toxoid Vaccination: No Hx Influenza Vaccination: Yes (2013) Hx Pneumococcal Vaccination: Yes (2013) - Home Medications Home Medications: Ambulatory Orders Medication Instructions Recorded Alprazolam 0.5 mg PO HS #0 tablet 04/12/15 Metoprolol Tartrate [Lopressor] 50 mg PO BID #0 tab 04/12/15 Aspirin [Ecotrin] 81 mg PO DAILY 08/09/16 Sertraline [Zoloft] 50 mg PO HS 08/09/16 Sevelamer Carbonate [Renvela] 3,200 mg PO TID 08/09/16 Calcitriol [Rocaltrol] 0.25 mcg PO DAILY sgl 08/12/16 Atorvastatin [Lipitor] 20 mg PO HS 09/14/16 Hydrocodone/Acetaminophen [Vicodin 1 tab PO Q8H PRN 09/14/16 5 mg-300 mg] Insulin Aspart, Recombinant 1 - 5 unit SC ACHS 09/14/16 [Novolog] Mupirocin 2% Ointment [Bactroban 1 appl TOP BID 09/14/16 Ointment] Sennosides [Senokot] 8.6 mg PO TUTHSA 09/14/16 cloNIDine [Catapres] 0.1 mg PO TID 09/14/16 traMADol [Ultram] 50 mg PO Q6H PRN 09/14/16 - Allergies Allergies/Adverse Reactions: Allergies Allergy/AdvReac Type Severity Reaction Status Date / Time Penicillins Allergy ANAPHYLAXIS Verified 01/14/16 16:53 propofol Allergy ANAPHYLAXIS Verified 01/14/16 16:53 vitamin K2 Allergy SHORTNESS Verified 01/14/16 16:53 OF BREATH diphenhydramine HCl AdvReac ITCHING Verified 01/14/16 16:53 [From Jeff] Review of Systems ROS Statement: Except As Marked, All Systems Reviewed And Found Negative Constitutional: Negative for: Fever, Chills Cardiovascular: Negative for: Chest Pain Respiratory: Negative for: Shortness of Breath Genitourinary Male: Positive for: Penile Discharge, Penile Pain Physical Exam - Reviewed Nursing Documentation Reviewed: Yes Vital Signs Reviewed: Yes - Physical Exam Appears: Positive for: Well, Non-toxic, No Acute Distress Head Exam: Positive for: ATRAUMATIC, NORMAL INSPECTION, NORMOCEPHALIC Skin: Positive for: Normal Color Neck: Positive for: Normal, Supple Cardiovascular/Chest: Positive for: Bradycardia, Irregularly Irregular Respiratory: Positive for: Normal Breath Sounds. Negative for: Respiratory Distress Gastrointestinal/Abdominal: Positive for: Normal Exam, Soft. Negative for: Tenderness Male Genital Exam: Positive for: no hernia, other (foreskin has been split dorsally, wound edges are erythematous with yellow discharge; glans with erythema and ulcers noted on bilateral aspect, yellow discharge from ulcers noted). Negative for: hernia mass, inguinal tenderness, lesions, scrotum tenderness (R), scrotum tenderness (L), testicular tenderness (R), testicular tenderness (L) Extremity: Positive for: Normal ROM, Other (shunt in place left upper extremity , normal appearancce; left 2nd, 4th and 5th digit amputations). Negative for: Deformity, Swelling Neurologic/Psych: Positive for: Alert, Oriented. Negative for: Motor/Sensory Deficits - Laboratory Results Result Diagrams: 09/14/16 09:25 09/14/16 09:25 - ECG ECG: Positive for: Interpreted By Me, Viewed By Me ECG Rhythm: Positive for: Atrial Fibrillation, Right Bundle Branch Block ( incomplete). Negative for: ST/T Changes Interpretation Of ECG: Slow ventricular response rate Left axis deviation Rate: 48 O2 Sat by Pulse Oximetry: 99 (RA) Pulse Ox Interpretation: Normal Medical Decision Making Medical Decision Making: Time: 829 Impression: 1. Diabetic ulcers of glans of penis, likely necrotic/gangrenous process with infection 2. Patient s/p dorsal split of foreskin and delayed healing DDx: Hernia, mass, testicular torsion Plan: -- Genital exam with Nurse Bhavana as laundry laborer -- Labs -- US Testicular -- Vancomycin 1g IV Reassess Time: [address] 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 Time: [address] Brower, patient to be admitted for further evaluation. Urology consult placed Time: [address] Rodriguez at bedside, consent signed for dialysis. Time: 1145 Case discussed with urologist Dr. Valverde, who requests topical treatment for the ulcers. Bacitracin ordered. Scribe Attestation: Documented by Amy Marshall acting as a scribe for Elliott Torres MD. Provider Attestation: All medical record entries made by the Scribe were at my direction and personally dictated by me. I have reviewed the chart and agree that the record accurately reflects my personal performance of the history, physical exam, medical decision making, and the department course for this patient. I have also personally directed, reviewed, and agree with the discharge instructions and disposition. Disposition - Clinical Impression Clinical Impression: ESRD on hemodialysis, Decubitus ulcer of penis, Wound infection - Patient ED Disposition Is Patient to be Admitted: Yes Discussed With : Alverto Brower Doctor Will See Patient In The: ED Counseled Patient/Family Regarding: Studies Performed, Diagnosis - Disposition Disposition Time: 11:04 Condition: FAIR - Pt Status Changed To: Hospital Disposition Of: Inpatient - Admit Certification Admit to Inpatient:: After my assessment, the patient will require hospitalization for at least two midnights. This is because of the severity of symptoms shown, intensity of services needed, and/or the medical risk in this patient being treated as an outpatient. - POA Present On Arrival: Poor Glycemic Control
[2016-09-14] MEDS ORDERED: metroNIDAZOLE 500mg/100ml NS 100 ML IVPB STA (08:47)
[2016-09-14] MEDS ORDERED: levoFLOXacin 500 mg in D5W 500 MG/100 ML BAG IVPB ONE ×2 (09:15→11:29)
[2016-09-14 09:30] LABS: VENOUS BLOOD GAS BASE EXCESS 5.4 mmol/L (0.0-2.0); VENOUS BLOOD GAS PCO2 59 mmHg (40-60); VENOUS BLOOD GAS PO2 36 mm/Hg (30-55); VENOUS BLOOD PH 7.35 (7.32-7.43)
[2016-09-14] MEDS ORDERED: Vancomycin 1 g Inj ONE (09:30)
[2016-09-14 09:39] LABS: BASO # 0.1 K/uL (0.0-0.2); EOS # 0.3 K/uL (0.0-0.7); EOS % 5.2 % (0.0-4.0); HEMOGLOBIN 10.8 g/dL (12.0-18.0); LYMPH # 0.8 K/uL (1.0-4.3); LYMPH % 12.1 % (20.0-40.0); MEAN CELL VOLUME 96.4 fl (80.0-94.0); MEAN CORPUSCULAR HEMOGLOBIN 31.8 pg (27.0-31.0); MEAN PLATELET VOLUME 9.4 fl (7.2-11.7); MONO # 0.6 K/uL (0.0-0.8); MONO % 9.9 % (0.0-10.0); NEUT # 4.5 K/uL (1.8-7.0); NEUT % 71.8 % (50.0-75.0); NRBC % 0.1 % (0.0-0.0); RBC 3.39 Mil/uL (4.40-5.90); RED CELL DISTRIBUTION WIDTH 19.7 % (11.5-14.5); WHITE BLOOD COUNT 6.3 K/uL (4.8-10.8)
[2016-09-14 09:43] LABS: ALB/GLOB RATIO 0.8 (1.0-2.1); ALBUMIN 3.6 g/dL (3.5-5.0); CALCIUM 9.2 mg/dL (8.4-10.2)
--- NOTE | 2016-09-14 11:26 | CP.PCM.CON ---
History of Present Illness - History of Present Illness History of Present Illness: Patient is a 60 years of age came to the emergency room complaining of severe pain in the penis patient stated that the has surgery circumcision about a week ago or so and disease complaining of a lot of pain and appears to be somewhat infected for which she did not go for dialysis and he came here to the emergency room for further evaluation. His past medical history and surgical history very complicated related to chronic kidney disease chronic atrial fibrillation multiple admissions related to swelling of the lower extremity multiple surgery on that dose and also on and fingers In addition history of congestive heart failure in the past was volume overloaded diabetes mellitus with related complication Review of Systems - Constitutional Constitutional: As Per HPI - EENT Eyes: As Per HPI - Cardiovascular Cardiovascular: Leg Ulcers, Pedal Edema. absent: Chest Pain, Dyspnea - Respiratory Respiratory: Dyspnea on Exertion - Gastrointestinal Gastrointestinal: absent: Abdominal Pain, Coffee Ground Emesis - Genitourinary Genitourinary: As Per HPI - Reproductive: Male Reproductive:Male: Genital Lesions - Musculoskeletal Musculoskeletal: Muscle Weakness - Neurological Neurological: Abnormal Gait Past Patient History - Infectious Disease Hx of Infectious Diseases: None - Past Medical History & Family History Past Medical History?: Yes - Past Social History Smoking Status: Never Smoked - CARDIAC Hx Atrial Fibrillation: Yes Hx Congestive Heart Failure: Yes Hx Hypercholesterolemia: No Hx Hypertension: Yes - PULMONARY Hx Chronic Obstructive Pulmonary Disease (COPD): No Hx Pneumonia: Yes Hx Sleep Apnea: Yes - NEUROLOGICAL Hx Transient Ischemic Attacks (TIA): Yes (2010) - HEENT Hx HEENT Problems: Yes - RENAL Hx Chronic Kidney Disease: Yes - ENDOCRINE/METABOLIC Hx Hypothyroidism: No - HEMATOLOGICAL/ONCOLOGICAL Hx Anemia: Yes - INTEGUMENTARY Hx Dermatological Problems: Yes (Diabetic ulcers) - MUSCULOSKELETAL/RHEUMATOLOGICAL Hx Arthritis: Yes Hx Fractures: Yes (Right foot surgery) Hx Rheumatoid Arthritis: No - GASTROINTESTINAL Hx Gastrointestinal Disorders: Yes Hx Constipation: Yes Hx Diarrhea: Yes - GENITOURINARY/GYNECOLOGICAL Hx Genitourinary Disorders: Yes - PSYCHIATRIC Hx Anxiety: Yes Hx Depression: Yes - SURGICAL HISTORY Hx Surgeries: Yes Hx Amputation: Yes (left hand) Other/Comment: circumcision - ANESTHESIA Hx Anesthesia: Yes Hx Anesthesia Reactions: Yes (Coded x 2) Hx Malignant Hyperthermia: No Meds Allergies/Adverse Reactions: Allergies Allergy/AdvReac Type Severity Reaction Status Date / Time Penicillins Allergy ANAPHYLAXIS Verified 01/14/16 16:53 propofol Allergy ANAPHYLAXIS Verified 01/14/16 16:53 vitamin K2 Allergy SHORTNESS Verified 01/14/16 16:53 OF BREATH diphenhydramine HCl AdvReac ITCHING Verified 01/14/16 16:53 [From Benadryl] Physical Exam - Constitutional Appears: No Acute Distress - ENT Exam ENT Exam: Mucous Membranes Moist - Respiratory Exam Respiratory Exam: NORMAL BREATHING PATTERN. absent: Chest Wall Tenderness - Cardiovascular Exam Cardiovascular Exam: absent: JVD, Rubs - GI/Abdominal Exam GI & Abdominal Exam: Normal Bowel Sounds - Exam External exam: Lesions - Extremities Exam Extremities exam: Negative for: calf tenderness - Back Exam Back exam: absent: CVA tenderness (L), CVA tenderness (R) - Neurological Exam Neurological exam: Alert Results - Vital Signs Recent Vital Signs: Last Vital Signs Temp 97 F L 09/14/16 08:10 Pulse 48 L 09/14/16 11:17 Resp 16 09/14/16 08:10 BP 148/73 09/14/16 08:10 Pulse Ox 99 09/14/16 11:17 - Labs Result Diagrams: 09/14/16 09:25 09/14/16 09:25 Assessment & Plan (1) CKD (chronic kidney disease) requiring chronic dialysis Assessment and Plan: Patient with end stage renal disease admitted for cellulitis of the tip of the penis with the status post circumcision. Patient due to have dialysis order was given ultrafiltration 2000 mL with potassium bath 3 mEq sodium bath 138 and bicarbonate bath 34 Patient to receive antibiotics as recommended with the renal jamaal Glycemic control Follow-up Status: Acute (2) Cellulitis Status: Acute (3) DM neuropathy, type II diabetes mellitus Status: Acute
--- NOTE | 2016-09-14 12:43 | US ---
HISTORY: right testicular pain Penile discharge s/p circumcision 3 weeks ago. TECHNIQUE: Realtime sonography through the scrotum with color and doppler flow. COMPARISON: None Available. FINDINGS: RIGHT TESTICLE: Measures 2.1 x 3 x 4.4 cm. Normal echotexture and flow. RIGHT EPIDIDYMIS: Epididymal head measures 0.9 x 1.2 cm. Grossly unremarkable appearance with normal flow. LEFT TESTICLE: Measures 3.3 x 2 x 4.2 cm. Normal echotexture and flow. LEFT EPIDIDYMIS: Epididymal head measures 0.5 x 1.1 cm. Grossly unremarkable appearance with normal flow. HYDROCELE: None. VARICOCELE: Bilateral, approximately symmetrical. OTHER FINDINGS: None. IMPRESSION: Negative study for epididymitis, orchitis or torsion. Bilateral varicoceles.
[2016-09-14] MEDS: Bacitracin OINT 15GM TOP SCH ×2 (14:24→17:25)
--- NOTE | 2016-09-14 15:29 | CP.PCM.CON ---
History of Present Illness - History of Present Illness History of Present Illness: Infectious Disease Consult Note- asked to see this patient at the request of for penile infection. HPI- patient seen along with the nurse. Pt. known to me from his previous admission for multiple digit autoinfections. Pt. is a pleasant 60 year old male with DM , ESRD on HD, CAD, CHF who presented to ED with complaints of penile pain for past 3 days. Pt. states about 10 days ago or so he noticed that he was having trouble retracting his foreskin to clean the region adn that it was giving him a lot of pain and even when his tried to help it was not possible and hence he was seen by urologist who performed a dorsal incision partial circumcision so that pt. would be able to retract , however pt. states after that he notice very bad smell from the region along with discharge and very painful and hence he decided to come here and to be evaluated and treated. He denies any fever or chills . Review of Systems - Review of Systems Review of Systems: ROS- denies any fever or chlls, denies any TAPIA, denies any cough, denies any sob, denies any abd. pain, denies any chest pain, denies any diarrhea, denies any n/v sattse pain along with discharge and malodor from b/l penile shaft site underneath the foreskin regions and almost like 2 growth like lesions on each side Past Patient History - Infectious Disease Hx of Infectious Diseases: None - Past Medical History & Family History Past Medical History?: Yes - Past Social History Smoking Status: Never Smoked Drugs: Denies Home Situation {Lives}: With Family - CARDIAC Hx Atrial Fibrillation: Yes Hx Congestive Heart Failure: Yes Hx Hypercholesterolemia: No Hx Hypertension: Yes - PULMONARY Hx Chronic Obstructive Pulmonary Disease (COPD): No Hx Pneumonia: Yes Hx Sleep Apnea: Yes - NEUROLOGICAL Hx Transient Ischemic Attacks (TIA): Yes (2010) - HEENT Hx HEENT Problems: Yes - RENAL Hx Chronic Kidney Disease: Yes - ENDOCRINE/METABOLIC Hx Hypothyroidism: No - HEMATOLOGICAL/ONCOLOGICAL Hx Anemia: Yes - INTEGUMENTARY Hx Dermatological Problems: Yes (Diabetic ulcers) - MUSCULOSKELETAL/RHEUMATOLOGICAL Hx Arthritis: Yes Hx Fractures: Yes (Right foot surgery) Hx Rheumatoid Arthritis: No - GASTROINTESTINAL Hx Gastrointestinal Disorders: Yes Hx Constipation: Yes Hx Diarrhea: Yes - GENITOURINARY/GYNECOLOGICAL Hx Genitourinary Disorders: Yes - PSYCHIATRIC Hx Anxiety: Yes Hx Depression: Yes - SURGICAL HISTORY Hx Surgeries: Yes Hx Amputation: Yes (left hand) Other/Comment: circumcision - ANESTHESIA Hx Anesthesia: Yes Hx Anesthesia Reactions: Yes (Coded x 2) Hx Malignant Hyperthermia: No Meds Allergies/Adverse Reactions: Allergies Allergy/AdvReac Type Severity Reaction Status Date / Time Penicillins Allergy ANAPHYLAXIS Verified 01/14/16 16:53 propofol Allergy ANAPHYLAXIS Verified 01/14/16 16:53 vitamin K2 Allergy SHORTNESS Verified 01/14/16 16:53 OF BREATH diphenhydramine HCl AdvReac ITCHING Verified 01/14/16 16:53 [From Benadryl] - Medications Medications: Current Medications Alprazolam (Xanax) 0.5 mg PO HS [facility] Aspirin (Ecotrin) 81 mg PO DAILY [facility] Atorvastatin Calcium (Lipitor) 20 mg PO HS [facility] Bacitracin (Bacitracin Oint) 1 applic TOP TID [facility] Calcitriol (Rocaltrol) 0.25 mcg PO DAILY [facility] Clonidine HCl (Catapres) 0.1 mg PO TID [facility] Heparin Sodium (Porcine) (Heparin) 5,000 units SC Q12 [facility] PRN Reason: Protocol Insulin Human Lispro (Humalog) 0 units SC ACHS [facility] PRN Reason: Protocol Metoprolol Tartrate (Lopressor) 50 mg PO BID [facility] Mupirocin (Bactroban Ointment) 1 applic TOP BID [facility] Sennosides (Senokot Tab) 8.6 mg PO TUTHSA [facility] Sertraline HCl (Zoloft) 50 mg PO HS [facility] Sevelamer HCl (Renagel) 3,200 mg PO TID [facility] Tramadol HCl (Ultram) 50 mg PO Q6H PRN PRN Reason: Pain, moderate (4-7) Physical Exam - Constitutional Appears: No Acute Distress, Chronically Ill - Head Exam Head Exam: ATRAUMATIC - Eye Exam Eye Exam: EOMI - ENT Exam ENT Exam: Normal Oropharynx - Neck Exam Neck exam: Positive for: Full Rom - Respiratory Exam Respiratory Exam: Clear to Auscultation Bilateral, NORMAL BREATHING PATTERN - Cardiovascular Exam Cardiovascular Exam: RRR, +S1, +S2 - GI/Abdominal Exam GI & Abdominal Exam: Normal Bowel Sounds, Soft Additional comments: NT, ND - Exam Additional comments: pt. 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 - Neurological Exam Neurological exam: Alert, Oriented x3 Results - Vital Signs Recent Vital Signs: Last Vital Signs Temp 97.4 F L 09/14/16 12:49 Pulse 48 L 09/14/16 15:01 Resp 18 09/14/16 12:49 BP 152/88 H 09/14/16 12:49 Pulse Ox 99 09/14/16 15:01 - Labs Result Diagrams: 09/14/16 09:25 09/14/16 09:25 Labs: Laboratory Results - last 72 hr 09/14/16 09/14/16 09/14/16 08:45 09:25 09:25 WBC 6.3 RBC 3.39 L Hgb 10.8 L Hct 32.7 L MCV 96.4 H D MCH 31.8 H MCHC 33.0 RDW 19.7 H Plt Count 68 L MPV 9.4 Neut % (Auto) 71.8 Lymph % (Auto) 12.1 L [place] % (Auto) 9.9 Eos % (Auto) 5.2 H Baso % (Auto) 1.0 Neut # 4.5 Lymph # 0.8 L [place] # 0.6 Eos # 0.3 Baso # 0.1 pO2 36 VBG pH 7.35 VBG pCO2 59 VBG HCO3 28.5 VBG Total CO2 34.4 H VBG O2 Sat (Calc) 74.6 H VBG Base Excess 5.4 H VBG Potassium 4.1 A-a O2 Difference 40.0 Sodium 133.0 135 Chloride 96.0 L 95 L Glucose 215 H Lactate 1.0 FiO2 21.0 Crit Value Called To Silvia smith Crit Value Called By 15 Crit Value Read Back Y Blood Gas Notified Time 930 Potassium 4.0 Carbon Dioxide 26 Anion Gap 18 BUN 59 H Creatinine 5.3 H Est GFR ( Amer) 13 Est GFR (Non-Af Amer) 11 POC Glucose (mg/dL) Random Glucose 205 H Calcium 9.2 Total Bilirubin 1.9 H AST 17 ALT 20 L D Alkaline Phosphatase 199 H D Total Protein 7.9 Albumin 3.6 Globulin 4.4 H Albumin/Globulin Ratio 0.8 L Venous Blood Potassium 4.1 09/14/16 17:07 WBC RBC Hgb Hct MCV MCH MCHC RDW Plt Count MPV Neut % (Auto) Lymph % (Auto) [place] % (Auto) Eos % (Auto) Baso % (Auto) Neut # Lymph # [place] # Eos # Baso # pO2 VBG pH VBG pCO2 VBG HCO3 VBG Total CO2 VBG O2 Sat (Calc) VBG Base Excess VBG Potassium A-a O2 Difference Sodium Chloride Glucose Lactate FiO2 Crit Value Called To Crit Value Called By Crit Value Read Back Blood Gas Notified Time Potassium Carbon Dioxide Anion Gap BUN Creatinine Est GFR ( Amer) Est GFR (Non-Af Amer) POC Glucose (mg/dL) 223 H Random Glucose Calcium Total Bilirubin AST ALT Alkaline Phosphatase Total Protein Albumin Globulin Albumin/Globulin Ratio Venous Blood Potassium Microbiology 09/14/16 09:25 Abscess - Penis Gram Stain - Final Accession No. : [id number] Patient Name / ID : AYANA MOBLEY J / [id number] Exam Date : 09/14/2016 10:29:16 ( Approved ) Study Comment : Sex / Age : M / 60Y Creator : Puneet Gallego MD Dictator : Puneet Gallego MD Electroplater Automatic : Etl Developer : Puneet Gallego MD Approver2 : Report Date : 09/14/2016 12:40:37 My Comment : HISTORY: right testicular pain Penile discharge s/p circumcision 3 weeks ago. TECHNIQUE: Realtime sonography through the scrotum with color and doppler flow. COMPARISON: None Available. FINDINGS: RIGHT TESTICLE: Measures 2.1 x 3 x 4.4 cm. Normal echotexture and flow. RIGHT EPIDIDYMIS: Epididymal head measures 0.9 x 1.2 cm. Grossly unremarkable appearance with normal flow. LEFT TESTICLE: Measures 3.3 x 2 x 4.2 cm. Normal echotexture and flow. LEFT EPIDIDYMIS: Epididymal head measures 0.5 x 1.1 cm. Grossly unremarkable appearance with normal flow. HYDROCELE: None. VARICOCELE: Bilateral, approximately symmetrical. OTHER FINDINGS: None. IMPRESSION: Negative study for epididymitis, orchitis or torsion. Bilateral varicoceles. 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 s/p dorsal partial circumcision few days ago. afebrile and normal wbc count check cx of the penile shaft fluid and discharge may need to have BX of the flat white round lesions on b/l penile shaft if no resolution after antibiotics. plan- advise to cover for both gram negatives and staph. advise to start pt. on IV clindamycin and IV cipro. check blood cx as well. check penile fluid for GC/chlamydia. check RPR as well. may need derm eval if no improvement of the lateral penile shaft lesions. Thank you for allowing me to take part in the care of this patient. all above d/w patient and he verbalizes full understanding of all above.
[2016-09-14] MEDS: Insulin Lispro (humaLOG) 100 Units/ml Inj SC SCH ×2 (17:29→22:02)
[2016-09-14] MEDS ORDERED: Clindamycin 600 MG in Sodium Chloride 0.9% 100 ML IVPB SCH (21:00)
[2016-09-14] MEDS: Ciprofloxacin 200mg/100ml D5W 100 ML IVPB SCH (23:09)
[2016-09-15] MEDS: Insulin Lispro (humaLOG) 100 Units/ml Inj SC SCH ×4 (06:41→22:30)
[2016-09-15] MEDS: Clindamycin 600 MG in Sodium Chloride 0.9% 100 ML IVPB SCH ×3 (06:42→23:44)
--- NOTE | 2016-09-15 06:42 | HP ---
HISTORY OF PRESENT ILLNESS: This is a 60-year-old male with history of multiple medical problems presented to emergency room with symptoms of severe excruciating pain in the genital area. The patient has been treated for an ulcerative lesion in the glans penis by Dr. Pugh. The patient's symptoms were not improved and the patient has been on local wound treatment as well as pain management that did not relives the patient's symptoms. The patient was continued hemodialysis and today, the patient was having excruciating pain that he could not tolerate, transferred to emergency room. REVIEW OF SYSTEMS: Bilateral lower extremity weakness. The patient is also legally blind. HOME MEDICATIONS: Include, Tramadol 50 mg q. 6 hours, clonidine 0.1 mg 3 times a day, Renvela 200 mg 3 times a day, Zoloft 50 mg at bedtime, metoprolol 50 mg twice a day, atorvastatin 20 mg at bedtime, alprazolam 0.5 mg at bedtime and aspirin 81 mg daily. SOCIAL HISTORY: No history of smoking, ETOH or substance abuse. FAMILY HISTORY: Not contributory. PAST MEDICAL HISTORY: End-stage renal disease on hemodialysis, hypertension, diabetic neuropathy and retinopathy. PHYSICAL EXAMINATION: GENERAL: The patient is in bed in mild distress due to the pain in the genital area. VITAL SIGNS: Blood pressure 159/81, temperature 97.5, respiratory rate is 18 and pulse 62. HEENT: Slightly pale mucosa of the conjunctiva. NECK: Supple. No JVD. No carotid bruit. No lymph node. No thyromegaly. CHEST AND LUNGS: Bilateral symmetrical expansion. God air exchange. No rales and no rhonchi. CARDIOVASCULAR: PMI not localized. S1 and S2. No additional sounds. ABDOMEN: Normoactive bowel sounds. No tenderness. No organomegaly. No masses. EXTREMITIES: No cyanosis. No clubbing. No edema. CENTRAL NERVOUS SYSTEM: Alert, awake and oriented x2. No neurological deficit could be appreciated. GENITALIA: The patient has a ulcerative lesion in the glans penis as well as on retracting the skin. The lesion is on an erythematous base. ASSESSMENT: 1. Infected ulcerative lesion with foul smelling and severe excruciating pain of the glans penis. 2. End-stage renal disease on hemodialysis. 3. Hypertension. 4. Diabetic retinopathy. 5. Diabetic neuropathy. 6. Radiculopathy with bilateral lower extremity weakness. PLAN: ID and urology consult. Follow the recommendations. Nephrology consults for hemodialysis, resume the patient's home medications. [facility] MD Inocente MTDReynold
--- NOTE | 2016-09-15 07:57 | CARD ---
APPROVED REPORT EKG Measurement Heart [id number] <Conclusion> Atrial fibrillation with slow ventricular response Left axis deviation Incomplete right bundle branch block Inferior infarct, age undetermined Possible Anterior infarct, age undetermined Abnormal ECG
[2016-09-15] MEDS: Bacitracin OINT 15GM TOP SCH (08:59)
[2016-09-15] MEDS: Ciprofloxacin 200mg/100ml D5W 100 ML IVPB SCH ×2 (09:02→21:16)
--- NOTE | 2016-09-15 11:30 | CP.PCM.PN ---
Subjective - Date & Time of Evaluation Date of Evaluation: 09/15/16 Time of Evaluation: 11:28 - Subjective Subjective: Patient feels much better he is receiving pain medication Hemodialysis completed yesterday Vital sign noted Objective - Vital Signs/Intake and Output Vital Signs (last 24 hours): Temp Pulse Resp BP Pulse Ox 97.8 F 72 20 168/93 H 99 09/15/16 07:27 09/15/16 09:04 09/15/16 07:27 09/15/16 09:04 09/15/16 07:27 - Medications Medications: Current Medications Alprazolam (Xanax) 0.5 mg PO HS [facility] Last Admin: 09/15/16 00:44 Dose: 0.5 mg Aspirin (Ecotrin) 81 mg PO DAILY [facility] Last Admin: 09/15/16 09:03 Dose: 81 mg Atorvastatin Calcium (Lipitor) 20 mg PO HS [facility] Last Admin: 09/14/16 22:03 Dose: 20 mg Bacitracin (Bacitracin Oint) 1 applic TOP TID [facility] Last Admin: 09/15/16 08:59 Dose: 1 applic Calcitriol (Rocaltrol) 0.25 mcg PO DAILY [facility] Last Admin: 09/15/16 09:03 Dose: 0.25 mcg Clonidine HCl (Catapres) 0.1 mg PO TID [facility] Last Admin: 09/15/16 09:04 Dose: 0.1 mg Heparin Sodium (Porcine) (Heparin) 5,000 units SC Q12 [facility] PRN Reason: Protocol Last Admin: 09/15/16 09:03 Dose: 5,000 units Hydromorphone HCl (Dilaudid) 0.5 mg IVP Q4 [facility] Last Admin: 09/15/16 08:57 Dose: 0.5 mg Ciprofloxacin (Cipro 200mg/100ml D5w) 100 mls @ 100 mls/hr IVPB Q12 [facility] Last Admin: 09/15/16 09:02 Dose: 100 mls/hr Clindamycin Phosphate 600 mg/ (Sodium Chloride) 104 mls @ 104 mls/hr IVPB Q8@ 0600,1400,2200 [facility] Last Admin: 09/15/16 06:42 Dose: 104 mls/hr Insulin Human Lispro (Humalog) 0 units SC ACHS [facility] PRN Reason: Protocol Last Admin: 08/09/17 06:41 Dose: Not Given Metoprolol Tartrate (Lopressor) 50 mg PO BID [facility] Last Admin: 09/15/16 09:04 Dose: 50 mg Multi-Ingredient Cream (Hydrocerin Cream) 1 applic TOP BID [facility] Mupirocin (Bactroban Ointment) 1 applic TOP BID [facility] Last Admin: 09/15/16 08:59 Dose: 1 applic Sennosides (Senokot Tab) 8.6 mg PO TUTHSA [facility] Last Admin: 09/14/16 17:32 Dose: 8.6 mg Sertraline HCl (Zoloft) 50 mg PO HS [facility] Last Admin: 09/15/16 00:44 Dose: 50 mg Sevelamer HCl (Renagel) 3,200 mg PO TID [facility] Last Admin: 09/15/16 09:02 Dose: 3,200 mg Tramadol HCl (Ultram) 50 mg PO Q6H PRN PRN Reason: Pain, moderate (4-7) Last Admin: 09/15/16 06:44 Dose: 50 mg - Constitutional Appears: No Acute Distress - ENT Exam ENT Exam: Mucous Membranes Moist - Respiratory Exam Respiratory Exam: NORMAL BREATHING PATTERN. absent: Chest Wall Tenderness - Cardiovascular Exam Cardiovascular Exam: Irregular Rhythm. absent: Rubs - GI/Abdominal Exam GI & Abdominal Exam: Normal Bowel Sounds - Extremities Exam Extremities Exam: absent: Calf Tenderness - Back Exam Back Exam: absent: CVA tenderness (L), CVA tenderness (R) - Neurological Exam Neurological Exam: Alert Assessment and Plan (1) CKD (chronic kidney disease) requiring chronic dialysis Assessment & Plan: End stage renal disease on maintenance hemodialysis required dialysis yesterday admitted because of the cellulitis of the penile wound infection. Receiving antibiotics as recommended by ID I reorder serum phosphorus level Continue phosphorus binder Continue monitoring Hemodialysis for tomorrow Status: Acute (2) Cellulitis Status: Acute (3) DM neuropathy, type II diabetes mellitus Status: Acute
[2016-09-15] MEDS: Hydrocerin CREAM TOP SCH ×2 (11:45→17:19)
[2016-09-15 12:03] LABS: HEPATITIS B SURFACE AG NEGATIVE (NEGATIVE)
--- NOTE | 2016-09-15 12:05 | PQF GENQUE ---
Dr. Brower, Infected ulcerative lesion of the glans penis versus Infection :ulcerative lesion of the glans penis :following a procedure? OR; Unable to determine OR: Other explantion of clinical finding ER: to the ED for evaluation of penile and right testicular pain for the past three days. Patient reports he had difficulty with "pulling back" his foreskin and saw a urologist who performed a circumcision on him ; patient states after the procedure, he was informed he had "growth" on his glans. Patient states he has had testicular pain after the procedure that is worse when he moves. Patient also reports noticing some penile discharge as well ID: admitted with penile pain, discharge and infection . s/p dorsal partial circumcision few days ago: febrile and normal wbc count check cx of the penile shaft fluid and discharge may need to have BX of the flat white round lesions on b/l penile shaft if no resolution after antibiotics. H and P: severe excruciating pain in the genital area; treated for an ulcerative lesion in the glans penis by urology; symptoms were not improved and the patient has been on local wound treatment as well as pain management that did not relives the patient's symptomsulcerative lesion with foul smelling and severe excruciating pain of the glans penis. Assessment : 1. Infected ulcerative lesion with foul smelling and severe excruciating pain of the glans penis. This form is a permanent part of the medical record Clarification of your documentation is requested to better reflect the severity of illness and intensity of treatment of your patient. Indicators present [] Specify: [] [] Specify: [] [] Specify: [] [] Specify: [] Location in the medical record that reflects the above clinical findings: [] Treatment Provided: [] PHYSICIAN'S RESPONSE Based on your medical judgment of the clinical indicators outlined above please clarify the following: [] Practitioner response [] If unable to determine, please check the box, sign and date. Present On Admission (POA) Indicator: [] Present at the time of admission [] Not present at the time of admission [] Clinically Undetermined In responding to this query, please exercise your independent professional judgment. The fact that a question is asked does not imply that any particular answer is desired or expected. Thank you for your clarification on this documentation. If you have any questions please call. * Thank you, Madison Bernabe RN BSN ext. [phone] MTDD
[2016-09-15 12:21] LABS: HEPATITIS C ANTIBODY NEGATIVE (NEGATIVE)
--- NOTE | 2016-09-15 14:46 | CP.PCM.PN ---
Subjective - Date & Time of Evaluation Date of Evaluation: 09/15/16 Time of Evaluation: 13:00 - Subjective Subjective: ID Note- Pt. seen and examined today. Pt. denies any fever or chills. states feels somewhat better. Objective - Vital Signs/Intake and Output Vital Signs (last 24 hours): Temp Pulse Resp BP Pulse Ox 97.8 F 72 20 168/93 H 99 09/15/16 07:27 09/15/16 09:04 09/15/16 07:27 09/15/16 09:04 09/15/16 07:27 - Medications Medications: Current Medications Alprazolam (Xanax) 0.5 mg PO HS [facility] Last Admin: 09/15/16 00:44 Dose: 0.5 mg Aspirin (Ecotrin) 81 mg PO DAILY [facility] Last Admin: 09/15/16 09:03 Dose: 81 mg Atorvastatin Calcium (Lipitor) 20 mg PO HS [facility] Last Admin: 09/14/16 22:03 Dose: 20 mg Calcitriol (Rocaltrol) 0.25 mcg PO DAILY [facility] Last Admin: 09/15/16 09:03 Dose: 0.25 mcg Clonidine HCl (Catapres) 0.1 mg PO TID [facility] Last Admin: 09/15/16 09:04 Dose: 0.1 mg Heparin Sodium (Porcine) (Heparin) 5,000 units SC Q12 [facility] PRN Reason: Protocol Last Admin: 09/15/16 09:03 Dose: 5,000 units Hydromorphone HCl (Dilaudid) 0.5 mg IVP Q4 [facility] Last Admin: 09/15/16 14:43 Dose: Not Given Ciprofloxacin (Cipro 200mg/100ml D5w) 100 mls @ 100 mls/hr IVPB Q12 [facility] Last Admin: 09/15/16 09:02 Dose: 100 mls/hr Clindamycin Phosphate 600 mg/ (Sodium Chloride) 104 mls @ 104 mls/hr IVPB Q8@ 0600,1400,2200 [facility] Last Admin: 09/15/16 06:42 Dose: 104 mls/hr Insulin Human Lispro (Humalog) 0 units SC ACHS [facility] PRN Reason: Protocol Last Admin: 09/15/16 11:44 Dose: 2 units Metoprolol Tartrate (Lopressor) 50 mg PO BID [facility] Last Admin: 09/15/16 09:04 Dose: 50 mg Multi-Ingredient Cream (Hydrocerin Cream) 1 applic TOP BID [facility] Mupirocin (Bactroban Ointment) 1 applic TOP BID [facility] Last Admin: 09/15/16 08:59 Dose: 1 applic Sennosides (Senokot Tab) 8.6 mg PO TUTHSA [facility] Last Admin: 09/14/16 17:32 Dose: 8.6 mg Sertraline HCl (Zoloft) 50 mg PO HS [facility] Last Admin: 09/15/16 00:44 Dose: 50 mg Sevelamer HCl (Renagel) 3,200 mg PO TID [facility] Last Admin: 09/15/16 09:02 Dose: 3,200 mg Tramadol HCl (Ultram) 50 mg PO Q6H PRN PRN Reason: Pain, moderate (4-7) Last Admin: 09/15/16 06:44 Dose: 50 mg - Additional Findings Additional findings: - Constitutional Appears: No Acute Distress, Chronically Ill - Head Exam Head Exam: ATRAUMATIC - Eye Exam Eye Exam: EOMI - ENT Exam ENT Exam: Normal Oropharynx - Neck Exam Neck exam: Positive for: Full Rom - Respiratory Exam Respiratory Exam: Clear to Auscultation Bilateral, NORMAL BREATHING PATTERN - Cardiovascular Exam Cardiovascular Exam: RRR, +S1, +S2 - GI/Abdominal Exam GI & Abdominal Exam: Normal Bowel Sounds, Soft Additional comments: NT, ND - Exam Additional comments: pt. 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 - Neurological Exam Neurological exam: Alert, Oriented x 3 Laboratory Results - last 72 hr 09/14/16 09/14/16 09/14/16 08:45 09:25 09:25 WBC 6.3 RBC 3.39 L Hgb 10.8 L Hct 32.7 L MCV 96.4 H D MCH 31.8 H MCHC 33.0 RDW 19.7 H Plt Count 68 L MPV 9.4 Neut % (Auto) 71.8 Lymph % (Auto) 12.1 L [place] % (Auto) 9.9 Eos % (Auto) 5.2 H Baso % (Auto) 1.0 Neut # 4.5 Lymph # 0.8 L [place] # 0.6 Eos # 0.3 Baso # 0.1 pO2 36 VBG pH 7.35 VBG pCO2 59 VBG HCO3 28.5 VBG Total CO2 34.4 H VBG O2 Sat (Calc) 74.6 H VBG Base Excess 5.4 H VBG Potassium 4.1 A-a O2 Difference 40.0 Sodium 133.0 135 Chloride 96.0 L 95 L Glucose 215 H Lactate 1.0 FiO2 21.0 Crit Value Called To Silvia smith Crit Value Called By 15 Crit Value Read Back Y Blood Gas Notified Time 930 Potassium 4.0 Carbon Dioxide 26 Anion Gap 18 BUN 59 H Creatinine 5.3 H Est GFR ( Amer) 13 Est GFR (Non-Af Amer) 11 POC Glucose (mg/dL) Random Glucose 205 H Calcium 9.2 Phosphorus Total Bilirubin 1.9 H AST 17 ALT 20 L D Alkaline Phosphatase 199 H D Total Protein 7.9 Albumin 3.6 Globulin 4.4 H Albumin/Globulin Ratio 0.8 L Venous Blood Potassium 4.1 Hep Bs Antigen Hep Bs Antibody Hepatitis C Antibody 09/14/16 09/14/16 09/14/16 17:07 18:00 18:00 WBC RBC Hgb Hct MCV MCH MCHC RDW Plt Count MPV Neut % (Auto) Lymph % (Auto) [place] % (Auto) Eos % (Auto) Baso % (Auto) Neut # Lymph # [place] # Eos # Baso # pO2 VBG pH VBG pCO2 VBG HCO3 VBG Total CO2 VBG O2 Sat (Calc) VBG Base Excess VBG Potassium A-a O2 Difference Sodium Chloride Glucose Lactate FiO2 Crit Value Called To Crit Value Called By Crit Value Read Back Blood Gas Notified Time Potassium Carbon Dioxide Anion Gap BUN Creatinine Est GFR ( Amer) Est GFR (Non-Af Amer) POC Glucose (mg/dL) 223 H Random Glucose Calcium Phosphorus Total Bilirubin AST ALT Alkaline Phosphatase Total Protein Albumin Globulin Albumin/Globulin Ratio Venous Blood Potassium Hep Bs Antigen Negative Hep Bs Antibody Positive Hepatitis C Antibody Negative 09/14/16 09/15/16 09/15/16 21:25 05:47 10:42 WBC RBC Hgb Hct MCV MCH MCHC RDW Plt Count MPV Neut % (Auto) Lymph % (Auto) [place] % (Auto) Eos % (Auto) Baso % (Auto) Neut # Lymph # [place] # Eos # Baso # pO2 VBG pH VBG pCO2 VBG HCO3 VBG Total CO2 VBG O2 Sat (Calc) VBG Base Excess VBG Potassium A-a O2 Difference Sodium Chloride Glucose Lactate FiO2 Crit Value Called To Crit Value Called By Crit Value Read Back Blood Gas Notified Time Potassium Carbon Dioxide Anion Gap BUN Creatinine Est GFR ( Amer) Est GFR (Non-Af Amer) POC Glucose (mg/dL) 89 137 H 181 H Random Glucose Calcium Phosphorus Total Bilirubin AST ALT Alkaline Phosphatase Total Protein Albumin Globulin Albumin/Globulin Ratio Venous Blood Potassium Hep Bs Antigen Hep Bs Antibody Hepatitis C Antibody 09/15/16 13:00 WBC RBC Hgb Hct MCV MCH MCHC RDW Plt Count MPV Neut % (Auto) Lymph % (Auto) [place] % (Auto) Eos % (Auto) Baso % (Auto) Neut # Lymph # [place] # Eos # Baso # pO2 VBG pH VBG pCO2 VBG HCO3 VBG Total CO2 VBG O2 Sat (Calc) VBG Base Excess VBG Potassium A-a O2 Difference Sodium Chloride Glucose Lactate FiO2 Crit Value Called To Crit Value Called By Crit Value Read Back Blood Gas Notified Time Potassium Carbon Dioxide Anion Gap BUN Creatinine Est GFR ( Amer) Est GFR (Non-Af Amer) POC Glucose (mg/dL) Random Glucose Calcium Phosphorus 3.7 Total Bilirubin AST ALT Alkaline Phosphatase Total Protein Albumin Globulin Albumin/Globulin Ratio Venous Blood Potassium Hep Bs Antigen Hep Bs Antibody Hepatitis C Antibody Microbiology 09/14/16 09:15 Blood Blood Culture - Preliminary NO GROWTH AFTER 24 HOURS 09/14/16 09:20 Blood Blood Culture - Preliminary NO GROWTH AFTER 24 HOURS 09/14/16 09:25 Abscess - Penis Gram Stain - Final Assessment and Plan (1) ESRD on hemodialysis Status: Acute (2) Infection of penis Status: Acute (3) DM neuropathy, type II diabetes mellitus Status: Acute - Assessment and Plan (Free Text) Assessment: A/P- 60 year old amle with ESRD on HD, DM with neuropahty, 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 s/p dorsal partial circumcision few days ago. afebrile and normal wbc count blood cx- neg x 2 penile wound cx- prelim GNR plan- advise to continue with IV clindamycin and IV cipro. day #2 await Final ID of the penile wound cx- await penile fluid GC/Chlm result. await RPR result. follow recommendation.
[2016-09-15] MEDS ORDERED: Hydrogen Peroxide 3% Soln (480ml) TP ONE (17:13)
--- NOTE | 2016-09-16 00:34 | PN ---
DATE: 09/15/2016 SUBJECTIVE: He is not in any cardiopulmonary distress. The patient is currently on antibiotics, both ciprofloxacin as well as clindamycin. PHYSICAL EXAMINATION VITAL SIGNS: Blood pressure is 138/83, temperature 97.9, respiratory rate 20 and pulse 65. HEENT: Slightly pale mucosa over the conjunctiva. NECK: Supple. No JVD. No carotid bruit. No lymph node. No thyromegaly. CHEST AND LUNGS: Bilateral symmetrical expansion. Good air exchange. No rales, no rhonchi. CARDIOVASCULAR SYSTEM: PMI not localized. S1 and S2. No additional sounds. ABDOMEN: Normoactive bowel sounds. No tenderness, no organomegaly, no masses. EXTREMITIES: No cyanosis, no clubbing, no edema. CENTRAL NERVOUS SYSTEM: Alert, awake, oriented x2. Moves all extremities equally except right lower extremity weakness secondary to radiculopathy. UROGENITAL AREA: The patient has 2 large ulcers in the glans penis, painful with erythematous base. PLAN: Continue current treatment and follow ID as well as urology recommendations. Continue hemodialysis. Alverto Brower MD
--- NOTE | 2016-09-16 02:56 | CON ---
DATE: 09/15/2016 TIME OF DICTATION: Roughly around 10:50 a.m. BRIEF HISTORY: The patient is a 60-year-old male with diabetic neuropathy and end-stage renal disease currently on dialysis who developed a total phimosis of the foreskin with penile pruritus and infection requiring a dorsal slit performed by Dr. Kwan Pugh (urology) 3 weeks ago. The patient initially did well from the surgery, but then developed a swelling and tenderness of the glans penis with a lesion appearing on the left side of the glans penis which now measures about 1.5 cm and looks like some possibly necrosed tissue. The patient was admitted for IV antibiotics and topical antibiotic treatment. PAST MEDICAL HISTORY: Includes atrial fibrillation, hypertension in addition to his diabetes, diabetic neuropathy and end-stage renal disease. The patient states he coded twice on propofol during the previous procedures and he also had past surgical history which included lumbar surgery and multiple surgeries on his right foot. PHYSICAL EXAMINATION GENERAL: Today, he is well-developed, well-nourished male. He is alert and oriented. VITAL SIGNS: Today, 09/15/2016 shows a temperature of 97.8, pulse rate of 72, blood pressure of 168/93, respiratory rate of 20 and O2 sat on room air 99%. HEENT: Grossly within normal limits. NECK: Supple. Thyroid not palpable. ABDOMEN: Soft, nondistended and nontender. No CVA tenderness, no suprapubic tenderness. GENITALIA: The patient is now with an open dorsal slit revealing a swollen tender glans penis which appeared to be necrotic area on the left anterior glans penis. His testicles are down bilaterally and are nontender at this time. The patient did have a scrotal ultrasound which showed only symmetrical bilateral varicoceles and no other findings. EXTREMITIES: He seems to have full range of motion of both upper and lower extremities. He is currently on IV Cipro and IV clindamycin and is being followed by infectious disease. The patient is currently being followed by infectious disease Dr. Walsh and he is also being followed by Dr. Andrew Rodriguez, nephrology. This lesion appears to be some sort of possible ulcer formation on the left anterior glans penis. LABORATORY DATA: On 09/14/2016 shows a CBC with a WBC count of 6.3, hemoglobin of 10.8, hematocrit of 32.7 with a platelet count of 68,000 which is quite low, indicating a moderate anemia. His chem profile shows a sodium of 135, potassium 4.0, chloride 95, CO2 of 26, BUN and creatinine of 59 and 5.3 respectively with a GFR of 11 consistent with end-stage renal disease. His random glucose today was 137. Calcium of 9.2 on 09/14/2016. His alk phos was elevated at 199 on 09/14/2016. Wound cultures were sent and are pending including the gram stains. IMPRESSION: This patient has a left anterior glans penal ulcer with swelling of the glans penis status post dorsal slit done 3 weeks ago. PLAN: Plan to this patient is to maintain the patient on his IV antibiotic regimen as per infectious disease. We will continue applying the bacitracin ointment at least 3 times a day and now we will now wash the wound with peroxide also 3 times a day prior to application of the bacitracin ointment. This case will also be discussed with Dr. Pugh. Cody Valverde MD MTDReynold
[2016-09-16] MEDS: Clindamycin 600 MG in Sodium Chloride 0.9% 100 ML IVPB SCH ×3 (05:02→21:54)
[2016-09-16] MEDS: Insulin Lispro (humaLOG) 100 Units/ml Inj SC SCH ×4 (06:56→21:50)
[2016-09-16 07:09] LABS: HEMOGLOBIN 11.4 g/dL (12.0-18.0); MEAN CELL VOLUME 98.3 fl (80.0-94.0); MEAN CORPUSCULAR HEMOGLOBIN 31.2 pg (27.0-31.0); MEAN CORPUSCULAR HGB CONC 31.8 g/dL (33.0-37.0); RBC 3.64 Mil/uL (4.40-5.90); RED CELL DISTRIBUTION WIDTH 19.2 % (11.5-14.5); WHITE BLOOD COUNT 6.4 K/uL (4.8-10.8)
[2016-09-16 07:22] LABS: ALB/GLOB RATIO 0.8 (1.0-2.1); ALBUMIN 3.8 g/dL (3.5-5.0); CALCIUM 9.1 mg/dL (8.4-10.2)
[2016-09-16] MEDS: Ciprofloxacin 200mg/100ml D5W 100 ML IVPB SCH ×2 (08:58→20:44)
[2016-09-16] MEDS: Hydrophor Oint TOP SCH ×2 (08:59→17:28)
--- NOTE | 2016-09-16 10:06 | CP.PCM.PN ---
Subjective - Date & Time of Evaluation Date of Evaluation: 09/16/16 Time of Evaluation: 10:02 - Subjective Subjective: Patient appears to be more comfortable less pain . No new event reported No chest pain or shortness of breath Objective - Vital Signs/Intake and Output Vital Signs (last 24 hours): Temp Pulse Resp BP Pulse Ox 97.5 F L 63 20 149/82 99 09/16/16 07:31 09/16/16 08:59 09/16/16 07:31 09/16/16 08:59 09/16/16 07:31 - Medications Medications: Current Medications Alprazolam (Xanax) 0.5 mg PO HS [facility] Last Admin: 09/15/16 21:33 Dose: 0.5 mg Aspirin (Ecotrin) 81 mg PO DAILY [facility] Last Admin: 09/16/16 08:57 Dose: 81 mg Atorvastatin Calcium (Lipitor) 20 mg PO HS [facility] Last Admin: 09/15/16 21:28 Dose: 20 mg Calcitriol (Rocaltrol) 0.25 mcg PO DAILY [facility] Last Admin: 09/16/16 08:57 Dose: 0.25 mcg Clonidine HCl (Catapres) 0.1 mg PO TID [facility] Last Admin: 09/16/16 08:57 Dose: 0.1 mg Heparin Sodium (Porcine) (Heparin) 5,000 units SC Q12 [facility] PRN Reason: Protocol Last Admin: 09/15/16 09:03 Dose: 5,000 units Hydromorphone HCl (Dilaudid) 0.5 mg IVP Q4 [facility] Last Admin: 09/16/16 05:03 Dose: Not Given Ciprofloxacin (Cipro 200mg/100ml D5w) 100 mls @ 100 mls/hr IVPB Q12 [facility] Last Admin: 09/16/16 08:58 Dose: 100 mls/hr Clindamycin Phosphate 600 mg/ (Sodium Chloride) 104 mls @ 104 mls/hr IVPB Q8@ 0600,1400,2200 [facility] Last Admin: 09/16/16 05:02 Dose: 104 mls/hr Insulin Human Lispro (Humalog) 0 units SC ACHS [facility] PRN Reason: Protocol Last Admin: 09/16/16 06:56 Dose: Not Given Metoprolol Tartrate (Lopressor) 50 mg PO BID [facility] Last Admin: 09/16/16 08:59 Dose: 50 mg Multi-Ingredient Ointment (Hydrophor Oint) 1 applic TOP BID [facility] Last Admin: 09/16/16 08:59 Dose: 1 applic Mupirocin (Bactroban Ointment) 1 applic TOP BID [facility] Last Admin: 09/16/16 08:57 Dose: 1 applic Sennosides (Senokot Tab) 8.6 mg PO TUTHSA [facility] Last Admin: 09/14/16 17:32 Dose: 8.6 mg Sertraline HCl (Zoloft) 50 mg PO HS [facility] Last Admin: 09/15/16 21:33 Dose: 50 mg Sevelamer HCl (Renagel) 3,200 mg PO TID [facility] Last Admin: 09/16/16 08:57 Dose: 3,200 mg Tramadol HCl (Ultram) 50 mg PO Q6H PRN PRN Reason: Pain, moderate (4-7) Last Admin: 09/16/16 05:07 Dose: 50 mg - Labs Labs: 09/16/16 06:35 09/16/16 06:35 - Constitutional Appears: No Acute Distress - ENT Exam ENT Exam: Mucous Membranes Moist - Respiratory Exam Respiratory Exam: NORMAL BREATHING PATTERN. absent: Chest Wall Tenderness - GI/Abdominal Exam GI & Abdominal Exam: Normal Bowel Sounds - Back Exam Back Exam: absent: CVA tenderness (L), CVA tenderness (R) - Neurological Exam Neurological Exam: Alert Assessment and Plan (1) CKD (chronic kidney disease) requiring chronic dialysis Assessment & Plan: End stage renal disease on maintenance hemodialysis. He scheduled to have dialysis shortly order was given. Was sodium 138 and potassium bath 2 mEq And bicarbonate bath 34 Patient admitted with cellulitis and wound infection of penis. With status post partial circumcision. Patient has multitude of medical history complicated related to diabetes mellitus with its complication / neuropathy multiple digit amputation, and multiple admission related to multiple infection congestive heart failure atrial fibrillation among other things. Patient overall doing much better Last serum phosphorus within normal I order PTH Status: Acute (2) Cellulitis Status: Acute (3) DM neuropathy, type II diabetes mellitus Status: Acute
--- NOTE | 2016-09-16 15:27 | CP.PCM.PN ---
Subjective - Date & Time of Evaluation Date of Evaluation: 09/16/16 Time of Evaluation: 12:15 - Subjective Subjective: ID Note- Pt. seen and examined today at same time as MARTINA Sands. Pt. denies any fever or chills. MARTINA doc took 2 swab samples of the 2 lateral penile shaft lesions and placed on slide and sent to pathology for further evaluation. Pt. states it's still very painful to retract the skin . Objective - Vital Signs/Intake and Output Vital Signs (last 24 hours): Temp Pulse Resp BP Pulse Ox 97.5 F L 64 20 172/96 H 99 09/16/16 09:00 09/16/16 13:09 09/16/16 09:00 09/16/16 13:09 09/16/16 09:00 - Medications Medications: Current Medications Alprazolam (Xanax) 0.5 mg PO HS [facility] Last Admin: 09/15/16 21:33 Dose: 0.5 mg Aspirin (Ecotrin) 81 mg PO DAILY [facility] Last Admin: 09/16/16 08:57 Dose: 81 mg Atorvastatin Calcium (Lipitor) 20 mg PO HS [facility] Last Admin: 09/15/16 21:28 Dose: 20 mg Calcitriol (Rocaltrol) 0.25 mcg PO DAILY [facility] Last Admin: 09/16/16 08:57 Dose: 0.25 mcg Clonidine HCl (Catapres) 0.1 mg PO TID [facility] Last Admin: 09/16/16 13:09 Dose: 0.1 mg Heparin Sodium (Porcine) (Heparin) 5,000 units SC Q12 [facility] PRN Reason: Protocol Last Admin: 09/15/16 09:03 Dose: 5,000 units Hydromorphone HCl (Dilaudid) 0.5 mg IVP Q4 [facility] Last Admin: 09/16/16 13:10 Dose: Not Given Ciprofloxacin (Cipro 200mg/100ml D5w) 100 mls @ 100 mls/hr IVPB Q12 [facility] Last Admin: 09/16/16 08:58 Dose: 100 mls/hr Clindamycin Phosphate 600 mg/ (Sodium Chloride) 104 mls @ 104 mls/hr IVPB Q8@ 0600,1400,2200 [facility] Last Admin: 09/16/16 13:20 Dose: 104 mls/hr Insulin Human Lispro (Humalog) 0 units SC ACHS [facility] PRN Reason: Protocol Last Admin: 09/16/16 13:10 Dose: 2 units Metoprolol Tartrate (Lopressor) 50 mg PO BID [facility] Last Admin: 09/16/16 08:59 Dose: 50 mg Multi-Ingredient Ointment (Hydrophor Oint) 1 applic TOP BID [facility] Last Admin: 09/16/16 08:59 Dose: 1 applic Mupirocin (Bactroban Ointment) 1 applic TOP BID [facility] Last Admin: 09/16/16 08:57 Dose: 1 applic Sennosides (Senokot Tab) 8.6 mg PO TUTHSA [facility] Last Admin: 09/14/16 17:32 Dose: 8.6 mg Sertraline HCl (Zoloft) 50 mg PO HS [facility] Last Admin: 09/15/16 21:33 Dose: 50 mg Sevelamer HCl (Renagel) 3,200 mg PO TID [facility] Last Admin: 09/16/16 13:11 Dose: 3,200 mg Tramadol HCl (Ultram) 50 mg PO Q6H PRN PRN Reason: Pain, moderate (4-7) Last Admin: 09/16/16 10:59 Dose: 50 mg - Labs Labs: - Additional Findings Additional findings: - Constitutional Appears: No Acute Distress, Chronically Ill - Head Exam Head Exam: ATRAUMATIC - Eye Exam Eye Exam: EOMI - ENT Exam ENT Exam: Normal Oropharynx - Neck Exam Neck exam: Positive for: Full Rom - Respiratory Exam Respiratory Exam: Clear to Auscultation Bilateral, NORMAL BREATHING PATTERN - Cardiovascular Exam Cardiovascular Exam: RRR, +S1, +S2 - GI/Abdominal Exam GI & Abdominal Exam: Normal Bowel Sounds, Soft Additional comments: NT, ND - Exam Additional comments: pt. 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 - Neurological Exam Neurological exam: Alert, Oriented x 3 Laboratory Results - last 72 hr 09/14/16 09/14/16 09/14/16 08:45 09:25 09:25 WBC 6.3 RBC 3.39 L Hgb 10.8 L Hct 32.7 L MCV 96.4 H D MCH 31.8 H MCHC 33.0 RDW 19.7 H Plt Count 68 L MPV 9.4 Neut % (Auto) 71.8 Lymph % (Auto) 12.1 L Power % (Auto) 9.9 Eos % (Auto) 5.2 H Baso % (Auto) 1.0 Neut # 4.5 Lymph # 0.8 L Power # 0.6 Eos # 0.3 Baso # 0.1 pO2 36 VBG pH 7.35 VBG pCO2 59 VBG HCO3 28.5 VBG Total CO2 34.4 H VBG O2 Sat (Calc) 74.6 H VBG Base Excess 5.4 H VBG Potassium 4.1 A-a O2 Difference 40.0 Sodium 133.0 135 Chloride 96.0 L 95 L Glucose 215 H Lactate 1.0 FiO2 21.0 Crit Value Called To Silvia smith Crit Value Called By 15 Crit Value Read Back Y Blood Gas Notified Time 930 Potassium 4.0 Carbon Dioxide 26 Anion Gap 18 BUN 59 H Creatinine 5.3 H Est GFR ( Amer) 13 Est GFR (Non-Af Amer) 11 POC Glucose (mg/dL) Random Glucose 205 H Calcium 9.2 Phosphorus Total Bilirubin 1.9 H AST 17 ALT 20 L D Alkaline Phosphatase 199 H D Total Protein 7.9 Albumin 3.6 Globulin 4.4 H Albumin/Globulin Ratio 0.8 L Venous Blood Potassium 4.1 RPR T.pallidum Ab (FTA-ABS) Hep Bs Antigen Hep Bs Antibody Hepatitis C Antibody 09/14/16 09/14/16 09/14/16 17:07 18:00 18:00 WBC RBC Hgb Hct MCV MCH MCHC RDW Plt Count MPV Neut % (Auto) Lymph % (Auto) Power % (Auto) Eos % (Auto) Baso % (Auto) Neut # Lymph # Power # Eos # Baso # pO2 VBG pH VBG pCO2 VBG HCO3 VBG Total CO2 VBG O2 Sat (Calc) VBG Base Excess VBG Potassium A-a O2 Difference Sodium Chloride Glucose Lactate FiO2 Crit Value Called To Crit Value Called By Crit Value Read Back Blood Gas Notified Time Potassium Carbon Dioxide Anion Gap BUN Creatinine Est GFR ( Amer) Est GFR (Non-Af Amer) POC Glucose (mg/dL) 223 H Random Glucose Calcium Phosphorus Total Bilirubin AST ALT Alkaline Phosphatase Total Protein Albumin Globulin Albumin/Globulin Ratio Venous Blood Potassium RPR T.pallidum Ab (FTA-ABS) Hep Bs Antigen Negative Hep Bs Antibody Positive Hepatitis C Antibody Negative 09/14/16 09/14/16 09/14/16 21:00 21:00 21:25 WBC RBC Hgb Hct MCV MCH MCHC RDW Plt Count MPV Neut % (Auto) Lymph % (Auto) Power % (Auto) Eos % (Auto) Baso % (Auto) Neut # Lymph # Power # Eos # Baso # pO2 VBG pH VBG pCO2 VBG HCO3 VBG Total CO2 VBG O2 Sat (Calc) VBG Base Excess VBG Potassium A-a O2 Difference Sodium Chloride Glucose Lactate FiO2 Crit Value Called To Crit Value Called By Crit Value Read Back Blood Gas Notified Time Potassium Carbon Dioxide Anion Gap BUN Creatinine Est GFR ( Amer) Est GFR (Non-Af Amer) POC Glucose (mg/dL) 89 Random Glucose Calcium Phosphorus Total Bilirubin AST ALT Alkaline Phosphatase Total Protein Albumin Globulin Albumin/Globulin Ratio Venous Blood Potassium RPR Nonreactive T.pallidum Ab (FTA-ABS) Nonreactive Hep Bs Antigen Hep Bs Antibody Hepatitis C Antibody 09/15/16 09/15/16 09/15/16 05:47 10:42 13:00 WBC RBC Hgb Hct MCV MCH MCHC RDW Plt Count MPV Neut % (Auto) Lymph % (Auto) Power % (Auto) Eos % (Auto) Baso % (Auto) Neut # Lymph # Power # Eos # Baso # pO2 VBG pH VBG pCO2 VBG HCO3 VBG Total CO2 VBG O2 Sat (Calc) VBG Base Excess VBG Potassium A-a O2 Difference Sodium Chloride Glucose Lactate FiO2 Crit Value Called To Crit Value Called By Crit Value Read Back Blood Gas Notified Time Potassium Carbon Dioxide Anion Gap BUN Creatinine Est GFR ( Amer) Est GFR (Non-Af Amer) POC Glucose (mg/dL) 137 H 181 H Random Glucose Calcium Phosphorus 3.7 Total Bilirubin AST ALT Alkaline Phosphatase Total Protein Albumin Globulin Albumin/Globulin Ratio Venous Blood Potassium RPR T.pallidum Ab (FTA-ABS) Hep Bs Antigen Hep Bs Antibody Hepatitis C Antibody 09/15/16 09/15/16 09/16/16 15:52 21:14 06:10 WBC RBC Hgb Hct MCV MCH MCHC RDW Plt Count MPV Neut % (Auto) Lymph % (Auto) Power % (Auto) Eos % (Auto) Baso % (Auto) Neut # Lymph # Power # Eos # Baso # pO2 VBG pH VBG pCO2 VBG HCO3 VBG Total CO2 VBG O2 Sat (Calc) VBG Base Excess VBG Potassium A-a O2 Difference Sodium Chloride Glucose Lactate FiO2 Crit Value Called To Crit Value Called By Crit Value Read Back Blood Gas Notified Time Potassium Carbon Dioxide Anion Gap BUN Creatinine Est GFR ( Amer) Est GFR (Non-Af Amer) POC Glucose (mg/dL) 236 H 167 H 121 H Random Glucose Calcium Phosphorus Total Bilirubin AST ALT Alkaline Phosphatase Total Protein Albumin Globulin Albumin/Globulin Ratio Venous Blood Potassium RPR T.pallidum Ab (FTA-ABS) Hep Bs Antigen Hep Bs Antibody Hepatitis C Antibody 09/16/16 09/16/16 09/16/16 06:35 06:35 10:43 WBC 6.4 RBC 3.64 L Hgb 11.4 L Hct 35.8 MCV 98.3 H MCH 31.2 H MCHC 31.8 L RDW 19.2 H Plt Count 63 L MPV Neut % (Auto) Lymph % (Auto) Power % (Auto) Eos % (Auto) Baso % (Auto) Neut # Lymph # Power # Eos # Baso # pO2 VBG pH VBG pCO2 VBG HCO3 VBG Total CO2 VBG O2 Sat (Calc) VBG Base Excess VBG Potassium A-a O2 Difference Sodium 136 Chloride 97 L Glucose Lactate FiO2 Crit Value Called To Crit Value Called By Crit Value Read Back Blood Gas Notified Time Potassium 4.9 Carbon Dioxide 25 Anion Gap 19 BUN 52 H Creatinine 4.9 H Est GFR ( Amer) 15 Est GFR (Non-Af Amer) 12 POC Glucose (mg/dL) 195 H Random Glucose 138 H Calcium 9.1 Phosphorus Total Bilirubin 2.0 H AST 12 L D ALT 25 Alkaline Phosphatase 198 H Total Protein 8.4 H Albumin 3.8 Globulin 4.5 H Albumin/Globulin Ratio 0.8 L Venous Blood Potassium RPR T.pallidum Ab (FTA-ABS) Hep Bs Antigen Hep Bs Antibody Hepatitis C Antibody Microbiology 09/14/16 09:25 Abscess - Penis Gram Stain - Final 09/14/16 09:25 Abscess - Penis Wound Culture - Final 09/14/16 09:15 Blood Blood Culture - Preliminary NO GROWTH AFTER 48 HOURS 09/14/16 09:20 Blood Blood Culture - Preliminary NO GROWTH AFTER 48 HOURS Assessment and Plan (1) ESRD on hemodialysis Status: Acute (2) Infection of penis Status: Acute (3) DM neuropathy, type II diabetes mellitus Status: Acute - Assessment and Plan (Free Text) Assessment: A/P- 60 year old amle with ESRD on HD, DM with neuropahty, 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 s/p dorsal partial circumcision few days ago. afebrile and normal wbc count blood cx- neg x 2 penile wound cx-final report normal rissa plan- advise to continue with IV clindamycin and IV cipro. day #3 await penile fluid GC/Chlm result. await RPR result. await the swab cx today sent by for patholog. also check penile lesion viral herpes culture. also d/w pathologist and she states she will also rule out inclusion bodies on the slides given to rule out herpes. I still think pt. would need derm eval as well and may cecelia punch biopsy of these 2 lateral lesions if no resolution after initiating antiviral zovirax ointment and valtrex tabs. all above d/w at length as well.
--- NOTE | 2016-09-16 16:45 | PN ---
DATE OF FOLLOWUP: 09/16/2016 TIME OF FOLLOWUP: Roughly 10:40 a.m. SUBJECTIVE: The patient seems to be feeling better this morning after the start of the peroxide washes with the topical bacitracin ointment applied to this wound on the glans penis, mostly the left glans penis, which measures little more than 1.5 cm x 1 cm. This case was completely discussed with both Dr. Pugh and Dr. Brower. Dr. Pugh states he did a wound culture at [facility], which showed no growth. A swab of the wound for cytology, however, has never been sent. We will do this today just prior to the application of his next peroxide wash and bacitracin ointment treatment. Dr. Brower is completely aware of the Mohs procedure (Mohs) and has already discussed this with some other environmental project manager. The patient may be a candidate for this procedure if his pathology is positive for cancer. The patient, however, is not candidate for a pelvic MRI with emphasis on the penis since he cannot go into the machine. This has been tried several times. The patient is not able to do any type of MRI. LABORATORY DATA: His laboratory evaluation on 09/16/2016 shows a CBC staying relatively unchanged with a WBC count of 6.4, hemoglobin of 11.4 and hematocrit 35.8. Platelet count is low at 63,000 indicating thrombocytopenia. His chemistry profile shows a sodium of 136, potassium 4.9, chloride 97, CO2 of 25, BUN and creatinine of 52 and 4.9 respectively with a GFR of 12 and his random glucose was 121, calcium is 9.1. PLAN: The lesion seems to be a relatively unchanged and does not appear to be increasing in size at this time. This is also discussed with the patient at bedside. Four slides of the left penile wound for cytology were obtained at the bedside, placed in ETOH and personally brought to pathology. Cody Valverde MD [facility]
[2016-09-16] MEDS: Acyclovir 5% OINT 15 APPLIC/15 GM EXT SCH ×3 (17:27→23:50)
[2016-09-16] MEDS: Acyclovir 500 MG in Sodium Chloride 0.9% 100 ML IVPB SCH (21:44)
[2016-09-17] MEDS: Acyclovir 5% OINT 15 APPLIC/15 GM EXT SCH ×3 (00:09→17:38)
[2016-09-17] MEDS: HYDROmorphone 0.5 mg/0.5 ml ISec IVP SCH ×6 (01:26→21:12)
[2016-09-17] MEDS: Clindamycin 600 MG in Sodium Chloride 0.9% 100 ML IVPB SCH ×3 (05:27→23:28)
[2016-09-17] MEDS: Acyclovir 500 MG in Sodium Chloride 0.9% 100 ML IVPB SCH ×2 (09:08→22:24)
[2016-09-17] MEDS: Hydrophor Oint TOP SCH ×2 (09:11→17:37)
[2016-09-17] MEDS: Insulin Lispro (humaLOG) 100 Units/ml Inj SC SCH ×4 (09:12→21:18)
[2016-09-17] MEDS: Ciprofloxacin 200mg/100ml D5W 100 ML IVPB SCH ×2 (09:39→21:13)
--- NOTE | 2016-09-17 12:24 | CP.PCM.PN ---
Subjective - Date & Time of Evaluation Date of Evaluation: 09/17/16 Time of Evaluation: 12:24 - Subjective Subjective: ID Note- Pt. seen and examined today. pt. denies any fever or chills. Objective - Vital Signs/Intake and Output Vital Signs (last 24 hours): Temp Pulse Resp BP Pulse Ox 97.4 F L 62 20 168/62 H 99 09/17/16 08:21 09/17/16 09:11 09/17/16 08:21 09/17/16 09:11 09/17/16 08:21 - Medications Medications: Current Medications Acyclovir (Zovirax 5% Oint) 1 applic EXT Q8 [facility] Last Admin: 09/17/16 09:09 Dose: 1 applic Alprazolam (Xanax) 0.5 mg PO HS [facility] Last Admin: 09/16/16 21:49 Dose: 0.5 mg Aspirin (Ecotrin) 81 mg PO DAILY [facility] Last Admin: 09/17/16 09:09 Dose: 81 mg Atorvastatin Calcium (Lipitor) 20 mg PO HS [facility] Last Admin: 09/16/16 21:49 Dose: 20 mg Calcitriol (Rocaltrol) 0.25 mcg PO DAILY [facility] Last Admin: 09/17/16 09:11 Dose: 0.25 mcg Clonidine HCl (Catapres) 0.1 mg PO TID [facility] Last Admin: 09/17/16 09:11 Dose: 0.1 mg Heparin Sodium (Porcine) (Heparin) 5,000 units SC Q12 [facility] PRN Reason: Protocol Last Admin: 09/15/16 09:03 Dose: 5,000 units Hydromorphone HCl (Dilaudid) 0.5 mg IVP Q4 [facility] Last Admin: 09/17/16 09:11 Dose: Not Given Ciprofloxacin (Cipro 200mg/100ml D5w) 100 mls @ 100 mls/hr IVPB Q12 [facility] Last Admin: 09/17/16 09:39 Dose: 100 mls/hr Clindamycin Phosphate 600 mg/ (Sodium Chloride) 104 mls @ 104 mls/hr IVPB Q8@ 0600,1400,2200 [facility] Last Admin: 09/17/16 05:27 Dose: 104 mls/hr Acyclovir 500 mg/ Sodium (Chloride) 100 mls @ 100 mls/hr IVPB Q12 [facility] Last Admin: 09/17/16 09:08 Dose: 100 mls/hr Insulin Human Lispro (Humalog) 0 units SC ACHS [facility] PRN Reason: Protocol Last Admin: 09/17/16 09:12 Dose: 2 units Metoprolol Tartrate (Lopressor) 50 mg PO BID [facility] Last Admin: 09/17/16 09:10 Dose: 50 mg Multi-Ingredient Ointment (Hydrophor Oint) 1 applic TOP BID [facility] Last Admin: 09/17/16 09:11 Dose: 1 applic Mupirocin (Bactroban Ointment) 1 applic TOP BID [facility] Last Admin: 09/17/16 09:10 Dose: 1 applic Sennosides (Senokot Tab) 8.6 mg PO TUTHSA [facility] Last Admin: 09/16/16 17:29 Dose: Not Given Sertraline HCl (Zoloft) 50 mg PO HS [facility] Last Admin: 09/16/16 21:49 Dose: 50 mg Sevelamer HCl (Renagel) 3,200 mg PO TID [facility] Last Admin: 09/17/16 09:09 Dose: 3,200 mg Tramadol HCl (Ultram) 50 mg PO Q6H PRN PRN Reason: Pain, moderate (4-7) Last Admin: 09/16/16 10:59 Dose: 50 mg - Labs Labs: - Additional Findings Additional findings: - Constitutional Appears: No Acute Distress, Chronically Ill - Head Exam Head Exam: ATRAUMATIC - Eye Exam Eye Exam: EOMI - ENT Exam ENT Exam: Normal Oropharynx - Neck Exam Neck exam: Positive for: Full Rom - Respiratory Exam Respiratory Exam: Clear to Auscultation Bilateral, NORMAL BREATHING PATTERN - Cardiovascular Exam Cardiovascular Exam: RRR, +S1, +S2 - GI/Abdominal Exam GI & Abdominal Exam: Normal Bowel Sounds, Soft Additional comments: NT, ND - Exam Additional comments: pt. 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 - Neurological Exam Neurological exam: Alert, Oriented x 3 Laboratory Results - last 72 hr 09/14/16 09/14/16 09/14/16 17:07 18:00 18:00 WBC RBC Hgb Hct MCV MCH MCHC RDW Plt Count Sodium Potassium Chloride Carbon Dioxide Anion Gap BUN Creatinine Est GFR ( Amer) Est GFR (Non-Af Amer) POC Glucose (mg/dL) 223 H Random Glucose Calcium Phosphorus Total Bilirubin AST ALT Alkaline Phosphatase Total Protein Albumin Globulin Albumin/Globulin Ratio RPR T.pallidum Ab (FTA-ABS) Hep Bs Antigen Negative Hep Bs Antibody Positive Hepatitis C Antibody Negative HIV 1&2 Antibody Screen 09/14/16 09/14/16 09/14/16 21:00 21:00 21:25 WBC RBC Hgb Hct MCV MCH MCHC RDW Plt Count Sodium Potassium Chloride Carbon Dioxide Anion Gap BUN Creatinine Est GFR ( Amer) Est GFR (Non-Af Amer) POC Glucose (mg/dL) 89 Random Glucose Calcium Phosphorus Total Bilirubin AST ALT Alkaline Phosphatase Total Protein Albumin Globulin Albumin/Globulin Ratio RPR Nonreactive T.pallidum Ab (FTA-ABS) Nonreactive Hep Bs Antigen Hep Bs Antibody Hepatitis C Antibody HIV 1&2 Antibody Screen 09/15/16 09/15/16 09/15/16 05:47 10:42 13:00 WBC RBC Hgb Hct MCV MCH MCHC RDW Plt Count Sodium Potassium Chloride Carbon Dioxide Anion Gap BUN Creatinine Est GFR ( Amer) Est GFR (Non-Af Amer) POC Glucose (mg/dL) 137 H 181 H Random Glucose Calcium Phosphorus 3.7 Total Bilirubin AST ALT Alkaline Phosphatase Total Protein Albumin Globulin Albumin/Globulin Ratio RPR T.pallidum Ab (FTA-ABS) Hep Bs Antigen Hep Bs Antibody Hepatitis C Antibody HIV 1&2 Antibody Screen 09/15/16 09/15/16 09/16/16 15:52 21:14 06:10 WBC RBC Hgb Hct MCV MCH MCHC RDW Plt Count Sodium Potassium Chloride Carbon Dioxide Anion Gap BUN Creatinine Est GFR ( Amer) Est GFR (Non-Af Amer) POC Glucose (mg/dL) 236 H 167 H 121 H Random Glucose Calcium Phosphorus Total Bilirubin AST ALT Alkaline Phosphatase Total Protein Albumin Globulin Albumin/Globulin Ratio RPR T.pallidum Ab (FTA-ABS) Hep Bs Antigen Hep Bs Antibody Hepatitis C Antibody HIV 1&2 Antibody Screen 09/16/16 09/16/16 09/16/16 06:35 06:35 10:43 WBC 6.4 RBC 3.64 L Hgb 11.4 L Hct 35.8 MCV 98.3 H MCH 31.2 H MCHC 31.8 L RDW 19.2 H Plt Count 63 L Sodium 136 Potassium 4.9 Chloride 97 L Carbon Dioxide 25 Anion Gap 19 BUN 52 H Creatinine 4.9 H Est GFR ( Amer) 15 Est GFR (Non-Af Amer) 12 POC Glucose (mg/dL) 195 H Random Glucose 138 H Calcium 9.1 Phosphorus Total Bilirubin 2.0 H AST 12 L D ALT 25 Alkaline Phosphatase 198 H Total Protein 8.4 H Albumin 3.8 Globulin 4.5 H Albumin/Globulin Ratio 0.8 L RPR T.pallidum Ab (FTA-ABS) Hep Bs Antigen Hep Bs Antibody Hepatitis C Antibody HIV 1&2 Antibody Screen 09/16/16 09/16/16 09/16/16 15:26 19:00 21:32 WBC RBC Hgb Hct MCV MCH MCHC RDW Plt Count Sodium Potassium Chloride Carbon Dioxide Anion Gap BUN Creatinine Est GFR ( Amer) Est GFR (Non-Af Amer) POC Glucose (mg/dL) 145 H 251 H Random Glucose Calcium Phosphorus Total Bilirubin AST ALT Alkaline Phosphatase Total Protein Albumin Globulin Albumin/Globulin Ratio RPR T.pallidum Ab (FTA-ABS) Hep Bs Antigen Hep Bs Antibody Hepatitis C Antibody HIV 1&2 Antibody Screen Negative 09/17/16 09/17/16 05:13 10:43 WBC RBC Hgb Hct MCV MCH MCHC RDW Plt Count Sodium Potassium Chloride Carbon Dioxide Anion Gap BUN Creatinine Est GFR ( Amer) Est GFR (Non-Af Amer) POC Glucose (mg/dL) 196 H 225 H Random Glucose Calcium Phosphorus Total Bilirubin AST ALT Alkaline Phosphatase Total Protein Albumin Globulin Albumin/Globulin Ratio RPR T.pallidum Ab (FTA-ABS) Hep Bs Antigen Hep Bs Antibody Hepatitis C Antibody HIV 1&2 Antibody Screen Microbiology 09/14/16 09:15 Blood Blood Culture - Preliminary NO GROWTH AFTER 3 DAYS 09/14/16 09:20 Blood Blood Culture - Preliminary NO GROWTH AFTER 3 DAYS 09/14/16 09:25 Abscess - Penis Gram Stain - Final 09/14/16 09:25 Abscess - Penis Wound Culture - Final Assessment and Plan (1) ESRD on hemodialysis Status: Acute (2) Infection of penis Status: Acute (3) DM neuropathy, type II diabetes mellitus Status: Acute - Assessment and Plan (Free Text) Assessment: A/P- 60 year old amle with ESRD on HD, DM with neuropahty, 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 s/p dorsal partial circumcision few days ago. afebrile and normal wbc count blood cx- neg x 2 penile wound cx-final report normal rissa await penile swab cytology report- discussed case with pathologist and as per her prelim no malignant cells and no viral inclusion bodies, however as per her specimen was very superficial and recommends biopsy. RPR- negative plan- Advise to continue with IV clindamycin and IV cipro empirically day #4. await official path report. also check penile lesion viral herpes culture. I still think pt. would need derm eval as well and may need punch biopsy of these 2 lateral lesions if no resolution after initiating antiviral zovirax ointment and valtrex tabs. empiric anti-herpes ointment and acyclovir started yesterday . day #2 today. all above d/w at length as well. all above also d/w patient at length and he verbalizes full understanding of all above.
--- NOTE | 2016-09-17 14:06 | CP.PCM.PN ---
Subjective - Date & Time of Evaluation Date of Evaluation: 09/17/16 Time of Evaluation: 14:04 - Subjective Subjective: Patient conscious and awake He feels much better Vital signs stable Less pain Objective - Vital Signs/Intake and Output Vital Signs (last 24 hours): Temp Pulse Resp BP Pulse Ox 97.4 F L 72 20 146/80 99 09/17/16 08:21 09/17/16 12:38 09/17/16 08:21 09/17/16 12:38 09/17/16 08:21 - Medications Medications: Current Medications Acyclovir (Zovirax 5% Oint) 1 applic EXT Q8 [facility] Last Admin: 09/17/16 09:09 Dose: 1 applic Alprazolam (Xanax) 0.5 mg PO HS [facility] Last Admin: 09/16/16 21:49 Dose: 0.5 mg Aspirin (Ecotrin) 81 mg PO DAILY [facility] Last Admin: 09/17/16 09:09 Dose: 81 mg Atorvastatin Calcium (Lipitor) 20 mg PO HS [facility] Last Admin: 09/16/16 21:49 Dose: 20 mg Calcitriol (Rocaltrol) 0.25 mcg PO DAILY [facility] Last Admin: 09/17/16 09:11 Dose: 0.25 mcg Clonidine HCl (Catapres) 0.1 mg PO TID [facility] Last Admin: 09/17/16 12:38 Dose: 0.1 mg Heparin Sodium (Porcine) (Heparin) 5,000 units SC Q12 [facility] PRN Reason: Protocol Last Admin: 09/15/16 09:03 Dose: 5,000 units Hydromorphone HCl (Dilaudid) 0.5 mg IVP Q4 [facility] Last Admin: 09/17/16 12:30 Dose: 0.5 mg Ciprofloxacin (Cipro 200mg/100ml D5w) 100 mls @ 100 mls/hr IVPB Q12 [facility] Last Admin: 09/17/16 09:39 Dose: 100 mls/hr Clindamycin Phosphate 600 mg/ (Sodium Chloride) 104 mls @ 104 mls/hr IVPB Q8@ 0600,1400,2200 [facility] Last Admin: 09/17/16 05:27 Dose: 104 mls/hr Acyclovir 500 mg/ Sodium (Chloride) 100 mls @ 100 mls/hr IVPB Q12 [facility] Last Admin: 09/17/16 09:08 Dose: 100 mls/hr Insulin Human Lispro (Humalog) 0 units SC ACHS [facility] PRN Reason: Protocol Last Admin: 09/17/16 12:36 Dose: 3 units Metoprolol Tartrate (Lopressor) 50 mg PO BID [facility] Last Admin: 09/17/16 09:10 Dose: 50 mg Multi-Ingredient Ointment (Hydrophor Oint) 1 applic TOP BID [facility] Last Admin: 09/17/16 09:11 Dose: 1 applic Mupirocin (Bactroban Ointment) 1 applic TOP BID [facility] Last Admin: 09/17/16 09:10 Dose: 1 applic Sennosides (Senokot Tab) 8.6 mg PO TUTHSA [facility] Last Admin: 09/16/16 17:29 Dose: Not Given Sertraline HCl (Zoloft) 50 mg PO HS [facility] Last Admin: 09/16/16 21:49 Dose: 50 mg Sevelamer HCl (Renagel) 3,200 mg PO TID [facility] Last Admin: 09/17/16 12:31 Dose: 3,200 mg Tramadol HCl (Ultram) 50 mg PO Q6H PRN PRN Reason: Pain, moderate (4-7) Last Admin: 09/16/16 10:59 Dose: 50 mg - Labs Labs: 09/16/16 06:35 09/16/16 06:35 - Constitutional Appears: No Acute Distress - ENT Exam ENT Exam: Mucous Membranes Moist - Respiratory Exam Respiratory Exam: absent: Chest Wall Tenderness - Cardiovascular Exam Cardiovascular Exam: absent: JVD, Rubs - GI/Abdominal Exam GI & Abdominal Exam: Normal Bowel Sounds - Extremities Exam Extremities Exam: absent: Calf Tenderness - Back Exam Back Exam: absent: CVA tenderness (L), CVA tenderness (R) - Neurological Exam Neurological Exam: Alert Assessment and Plan (1) CKD (chronic kidney disease) requiring chronic dialysis Assessment & Plan: Patient admitted with cellulitis and wound infection of penis. With status post partial circumcision. Patient has multitude of medical history complicated related to diabetes mellitus with its complication / neuropathy multiple digit amputation, and multiple admission related to multiple infection congestive heart failure atrial fibrillation among other thin Continue hemodialysis as scheduled for tomorrow patient receiving antibiotics as noted. Status: Acute (2) Cellulitis Status: Acute (3) DM neuropathy, type II diabetes mellitus Status: Acute
[2016-09-18] MEDS: HYDROmorphone 0.5 mg/0.5 ml ISec IVP SCH ×6 (00:55→21:14)
[2016-09-18] MEDS: Acyclovir 5% OINT 15 APPLIC/15 GM EXT SCH ×2 (01:17→10:41)
[2016-09-18] MEDS: Clindamycin 600 MG in Sodium Chloride 0.9% 100 ML IVPB SCH ×3 (05:16→22:04)
[2016-09-18] MEDS: Insulin Lispro (humaLOG) 100 Units/ml Inj SC SCH ×4 (10:00→22:03)
[2016-09-18] MEDS: Acyclovir 500 MG in Sodium Chloride 0.9% 100 ML IVPB SCH (10:32)
[2016-09-18] MEDS: Ciprofloxacin 200mg/100ml D5W 100 ML IVPB SCH ×2 (10:36→21:07)
[2016-09-18] MEDS: Hydrophor Oint TOP SCH ×2 (10:36→17:47)
--- NOTE | 2016-09-18 12:13 | PN ---
DATE: 09/18/2016 TIME OF FOLLOWUP: Roughly 11:20 a.m. SUBJECTIVE: The patient is currently resting comfortably, and now for the first time in a long time, getting some sleep secondary to his decreased pain of the penile shaft at this time. The patient was seen by Dr. Holland, dermatology, who changed some of his topical treatments from bacitracin to Bactroban and peroxide to normal saline and the patient seems to be responding well to these topical treatments at this point in time. The lesion on the left glans of the penis appears to be relatively unchanged at this time. Dr. Holland agrees with the eventual treatment if the slides cytology come back positive for cancer. The patient will need a deeper biopsy and probably refer to a miller apprentice of Dr. Holland's choice to do a definitive Mohs procedure if the pathology comes back positive for cancer. The patient has also had cultures sent for herpes and other ulcer cultures. PHYSICAL EXAMINATION GENITOURINARY: Today, the penile shaft appears to be less swollen and the dorsal slit wounds also appear to be somewhat improved at this hour. The penile shaft is also definitely less tender than it was previously. DIAGNOSTIC IMPRESSION: For this patient at this time; 1. Nonhealing penile glans ulcer. 2. Rule out neoplasm. 3. Rule out infectious process. PLAN: Dr. Holland will return next week and will see the patient in followup. This case will also be again discussed with the patient's PCP, Dr. Grayson Brower. Cody Valverde MD MTDD
--- NOTE | 2016-09-18 16:03 | CP.PCM.PN ---
Subjective - Date & Time of Evaluation Date of Evaluation: 09/18/16 Time of Evaluation: 12:00 - Subjective Subjective: ID Note- Pt. seen and examined today. Pt. states he feels somewhat better today and the pain on the penile shaft is less today. Objective - Vital Signs/Intake and Output Vital Signs (last 24 hours): Temp Pulse Resp BP Pulse Ox 97.5 F L 63 18 173/95 H 100 09/18/16 08:13 09/18/16 10:40 09/18/16 08:13 09/18/16 10:40 09/18/16 08:13 - Medications Medications: Current Medications Acyclovir (Zovirax 5% Oint) 1 applic EXT Q8 [facility] Last Admin: 09/18/16 10:41 Dose: 1 applic Aspirin (Ecotrin) 81 mg PO DAILY [facility] Last Admin: 09/18/16 10:37 Dose: 81 mg Atorvastatin Calcium (Lipitor) 20 mg PO HS [facility] Last Admin: 09/17/16 21:16 Dose: 20 mg Calcitriol (Rocaltrol) 0.25 mcg PO DAILY [facility] Last Admin: 09/18/16 10:40 Dose: 0.25 mcg Clonidine HCl (Catapres) 0.1 mg PO TID [facility] Last Admin: 09/18/16 13:05 Dose: Not Given Heparin Sodium (Porcine) (Heparin) 5,000 units SC Q12 [facility] PRN Reason: Protocol Last Admin: 09/15/16 09:03 Dose: 5,000 units Hydromorphone HCl (Dilaudid) 0.5 mg IVP Q4 [facility] Last Admin: 09/18/16 13:04 Dose: Not Given Ciprofloxacin (Cipro 200mg/100ml D5w) 100 mls @ 100 mls/hr IVPB Q12 [facility] Last Admin: 09/18/16 10:36 Dose: 100 mls/hr Clindamycin Phosphate 600 mg/ (Sodium Chloride) 104 mls @ 104 mls/hr IVPB Q8@ 0600,1400,2200 [facility] Last Admin: 09/18/16 05:16 Dose: 104 mls/hr Acyclovir 500 mg/ Sodium (Chloride) 100 mls @ 100 mls/hr IVPB Q12 [facility] Last Admin: 09/18/16 10:32 Dose: 100 mls/hr Insulin Human Lispro (Humalog) 0 units SC ACHS [facility] PRN Reason: Protocol Last Admin: 09/18/16 13:03 Dose: 2 units Metoprolol Tartrate (Lopressor) 50 mg PO BID [facility] Last Admin: 09/18/16 10:40 Dose: 50 mg Multi-Ingredient Ointment (Hydrophor Oint) 1 applic TOP BID [facility] Last Admin: 09/18/16 10:36 Dose: 1 applic Mupirocin (Bactroban Ointment) 1 applic TOP BID [facility] Last Admin: 09/18/16 10:38 Dose: 1 applic Sennosides (Senokot Tab) 8.6 mg PO TUTHSA [facility] Last Admin: 09/16/16 17:29 Dose: Not Given Sertraline HCl (Zoloft) 50 mg PO HS [facility] Last Admin: 09/17/16 21:16 Dose: 50 mg Sevelamer HCl (Renagel) 3,200 mg PO TID [facility] Last Admin: 09/18/16 13:02 Dose: 3,200 mg Tramadol HCl (Ultram) 50 mg PO Q6H PRN PRN Reason: Pain, moderate (4-7) Last Admin: 09/16/16 10:59 Dose: 50 mg - Labs Labs: - Additional Findings Additional findings: - Constitutional Appears: No Acute Distress, Chronically Ill - Head Exam Head Exam: ATRAUMATIC - Eye Exam Eye Exam: EOMI - ENT Exam ENT Exam: Normal Oropharynx - Neck Exam Neck exam: Positive for: Full Rom - Respiratory Exam Respiratory Exam: Clear to Auscultation Bilateral, NORMAL BREATHING PATTERN - Cardiovascular Exam Cardiovascular Exam: RRR, +S1, +S2 - GI/Abdominal Exam GI & Abdominal Exam: Normal Bowel Sounds, Soft Additional comments: NT, ND - Exam Additional comments: pt. 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 - Neurological Exam Neurological exam: Alert, Oriented x 3 Laboratory Results - last 72 hr 09/14/16 09/15/16 09/15/16 21:00 15:52 21:14 WBC RBC Hgb Hct MCV MCH MCHC RDW Plt Count Sodium Potassium Chloride Carbon Dioxide Anion Gap BUN Creatinine Est GFR ( Amer) Est GFR (Non-Af Amer) POC Glucose (mg/dL) 236 H 167 H Random Glucose Calcium Total Bilirubin AST ALT Alkaline Phosphatase Total Protein Albumin Globulin Albumin/Globulin Ratio PTH Intact Whole Molec RPR Nonreactive HIV 1&2 Antibody Screen 09/16/16 09/16/16 09/16/16 06:10 06:30 06:35 WBC 6.4 RBC 3.64 L Hgb 11.4 L Hct 35.8 MCV 98.3 H MCH 31.2 H MCHC 31.8 L RDW 19.2 H Plt Count 63 L Sodium Potassium Chloride Carbon Dioxide Anion Gap BUN Creatinine Est GFR ( Amer) Est GFR (Non-Af Amer) POC Glucose (mg/dL) 121 H Random Glucose Calcium Total Bilirubin AST ALT Alkaline Phosphatase Total Protein Albumin Globulin Albumin/Globulin Ratio PTH Intact Whole Molec 161 H RPR HIV 1&2 Antibody Screen 09/16/16 09/16/16 09/16/16 06:35 10:43 15:26 WBC RBC Hgb Hct MCV MCH MCHC RDW Plt Count Sodium 136 Potassium 4.9 Chloride 97 L Carbon Dioxide 25 Anion Gap 19 BUN 52 H Creatinine 4.9 H Est GFR ( Amer) 15 Est GFR (Non-Af Amer) 12 POC Glucose (mg/dL) 195 H 145 H Random Glucose 138 H Calcium 9.1 Total Bilirubin 2.0 H AST 12 L D ALT 25 Alkaline Phosphatase 198 H Total Protein 8.4 H Albumin 3.8 Globulin 4.5 H Albumin/Globulin Ratio 0.8 L PTH Intact Whole Molec RPR HIV 1&2 Antibody Screen 09/16/16 09/16/16 09/17/16 19:00 21:32 05:13 WBC RBC Hgb Hct MCV MCH MCHC RDW Plt Count Sodium Potassium Chloride Carbon Dioxide Anion Gap BUN Creatinine Est GFR ( Amer) Est GFR (Non-Af Amer) POC Glucose (mg/dL) 251 H 196 H Random Glucose Calcium Total Bilirubin AST ALT Alkaline Phosphatase Total Protein Albumin Globulin Albumin/Globulin Ratio PTH Intact Whole Molec RPR HIV 1&2 Antibody Screen Negative 09/17/16 09/17/16 09/17/16 10:43 15:43 21:01 WBC RBC Hgb Hct MCV MCH MCHC RDW Plt Count Sodium Potassium Chloride Carbon Dioxide Anion Gap BUN Creatinine Est GFR ( Amer) Est GFR (Non-Af Amer) POC Glucose (mg/dL) 225 H 181 H 175 H Random Glucose Calcium Total Bilirubin AST ALT Alkaline Phosphatase Total Protein Albumin Globulin Albumin/Globulin Ratio PTH Intact Whole Molec RPR HIV 1&2 Antibody Screen 09/18/16 09/18/16 09/18/16 05:55 11:01 15:57 WBC RBC Hgb Hct MCV MCH MCHC RDW Plt Count Sodium Potassium Chloride Carbon Dioxide Anion Gap BUN Creatinine Est GFR ( Amer) Est GFR (Non-Af Amer) POC Glucose (mg/dL) 150 H 177 H 204 H Random Glucose Calcium Total Bilirubin AST ALT Alkaline Phosphatase Total Protein Albumin Globulin Albumin/Globulin Ratio PTH Intact Whole Molec RPR HIV 1&2 Antibody Screen Microbiology 09/15/16 12:47 Penis GC Culture - Final NO GC ISOLATED 09/16/16 21:00 Other: Please Indicate Specimen Source - Final 09/16/16 21:00 Other: Please Indicate Herpes Simplex Virus Rapid Culture - Final 09/14/16 09:15 Blood Blood Culture - Preliminary NO GROWTH AFTER 4 DAYS 09/14/16 09:20 Blood Blood Culture - Preliminary NO GROWTH AFTER 4 DAYS 09/14/16 09:25 Abscess - Penis Gram Stain - Final 09/14/16 09:25 Abscess - Penis Wound Culture - Final Assessment and Plan (1) ESRD on hemodialysis Status: Acute (2) Infection of penis Status: Acute (3) DM neuropathy, type II diabetes mellitus Status: Acute - Assessment and Plan (Free Text) Assessment: A/P- 60 year old amle with ESRD on HD, DM with neuropahty, 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 s/p dorsal partial circumcision few days ago. afebrile and normal wbc count blood cx- neg x 2 penile wound cx-final report normal rissa penile swab cytology- negative for malignancy and no inclusion bodies as per pathologist report. HSV viral culture also negative. RPR- negative urine GC- negative HIV AB- negative plan- Advise to continue with IV clindamycin and IV cipro empirically day #5. in light of negative herpes culture and no viral inclusion bodies on the cytology swab advise to d/c acyclovir and zovirax. await dermatology evaluation. I still think patient should have biopsy of the lesion done and send that specim ,en for pathology along with AFB , fungal culture and regular culture. all above d/w at length as well. all above also d/w patient at length and he verbalizes full understanding of all above.
--- NOTE | 2016-09-18 18:17 | CP.PCM.PN ---
Subjective - Date & Time of Evaluation Date of Evaluation: 09/18/16 Time of Evaluation: 18:12 - Subjective Subjective: Follow up Nephrology Consultation Note Assessment: Stable Diabetic chronic Kidney Disease (E11.22) Hypertensive Chronic Kidney Disease (I12.0) End stage renal disease (N18.6) dependence on hemodialysis (Z99.2) (TTS) via AVF Anemia (D64.9), Hyperphosphatemia (E83.39), Secondary Hyperparathyroidism (E21.1 ), HTN (I12.0) Penile wound and infection Plan: Will plan for HD today as ordered. Continue with Nephrovite 1 tab/day. PRBC as needed for anemia. Not on ROSE as last Hb 11.4 Continue with phos binders last phos level 3.7 Continue with calcitriol with dialysis. Last PTH level 161. BP control with meds as ordered. Patient not on RAAS nury as bp controlled for now. may add it if needed. Glycemic control, Dialysis consistent diet Further work up/management as per primary team Dose meds/antibiotics (if needed) for ESRD status. Avoid fleets enema/magnesium based laxatives. Thanks for allowing me to participate in care of your patient. Will follow patient with you. Please call if any Qs Dr Nikita Wallace Office: [phone] Subjective: Noted events overnight. Patients feels okay. Denies chest pain, palpitation, shortness of breath, improved leg swelling. penile wound and infection better Physical Examination: General Appearance: Comfortable, in no acute respiratory distress, co- operative. Vitals reviewed and noted as below Lungs: Normal respiratory rate/effort. Breath sounds bilateral equal and clear Heart: Normal rate. s1s2 normal. No rub or gallop. Extremities: 1-2+ edema. Neurological: Patient is alert, awake and oriented to person, place and time. No focal deficit. Strength bilateral appropriate and equal Skin: Warm and dry. Normal turgor. No rash. Palpitation: Normal elasticity for age Abdomen: Abdomen is soft. Bowel sounds +. There is no abdominal tenderness, no guarding/rigidity or organomegaly : kidney or bladder not palpable. has penile wound and ulcer Access: AVF Labs/imaging reviewed. Past medical history, past surgical history, family history, social history, allergy reviewed Objective - Vital Signs/Intake and Output Vital Signs (last 24 hours): Temp Pulse Resp BP Pulse Ox 97.3 F L 62 17 155/92 H 99 09/18/16 16:10 09/18/16 16:10 09/18/16 16:10 09/18/16 16:10 09/18/16 16:10 - Medications Medications: Current Medications Aspirin (Ecotrin) 81 mg PO DAILY [facility] Last Admin: 09/18/16 10:37 Dose: 81 mg Atorvastatin Calcium (Lipitor) 20 mg PO HS [facility] Last Admin: 09/17/16 21:16 Dose: 20 mg Calcitriol (Rocaltrol) 0.25 mcg PO DAILY [facility] Last Admin: 09/18/16 10:40 Dose: 0.25 mcg Clonidine HCl (Catapres) 0.1 mg PO TID [facility] Last Admin: 09/18/16 17:46 Dose: Not Given Heparin Sodium (Porcine) (Heparin) 5,000 units SC Q12 [facility] PRN Reason: Protocol Last Admin: 09/15/16 09:03 Dose: 5,000 units Hydromorphone HCl (Dilaudid) 0.5 mg IVP Q4 [facility] Last Admin: 09/18/16 17:57 Dose: 0.5 mg Ciprofloxacin (Cipro 200mg/100ml D5w) 100 mls @ 100 mls/hr IVPB Q12 [facility] Last Admin: 09/18/16 10:36 Dose: 100 mls/hr Clindamycin Phosphate 600 mg/ (Sodium Chloride) 104 mls @ 104 mls/hr IVPB Q8@ 0600,1400,2200 [facility] Last Admin: 09/18/16 16:12 Dose: 104 mls/hr Insulin Human Lispro (Humalog) 0 units SC ACHS [facility] PRN Reason: Protocol Last Admin: 09/18/16 17:47 Dose: 3 units Metoprolol Tartrate (Lopressor) 50 mg PO BID [facility] Last Admin: 09/18/16 17:46 Dose: Not Given Multi-Ingredient Ointment (Hydrophor Oint) 1 applic TOP BID [facility] Last Admin: 09/18/16 17:47 Dose: 1 applic Mupirocin (Bactroban Ointment) 1 applic TOP BID [facility] Last Admin: 09/18/16 18:04 Dose: 1 applic Sennosides (Senokot Tab) 8.6 mg PO TUTHSA [facility] Last Admin: 09/18/16 17:47 Dose: 8.6 mg Sertraline HCl (Zoloft) 50 mg PO HS [facility] Last Admin: 09/17/16 21:16 Dose: 50 mg Sevelamer HCl (Renagel) 3,200 mg PO TID [facility] Last Admin: 09/18/16 17:46 Dose: 3,200 mg Tramadol HCl (Ultram) 50 mg PO Q6H [facility] PRN Reason: Pain, moderate (4-7) Last Admin: 09/16/16 10:59 Dose: 50 mg Vitamin B Complex/Vit C/Folic Acid (Nephro-Jeff) 1 tab PO DAILY [facility] - Labs Labs: 09/16/16 06:35 09/16/16 06:35
[2016-09-18] MEDS ORDERED: Hydrogen Peroxide 3% Soln (480ml) TP ONE (19:37)
[2016-09-19] MEDS: HYDROmorphone 0.5 mg/0.5 ml ISec IVP SCH ×6 (00:55→21:17)
--- NOTE | 2016-09-19 02:02 | PN ---
DATE: 09/18/2016 SUBJECTIVE: The patient is seen today, 09/18/2016. He still has ulcer in the glans penis and pain is currently better controlled. PHYSICAL EXAMINATION: VITAL SIGNS: Blood pressure 155/92, temperature 97.3, respiratory rate 17, and pulse 62. HEENT: Pupils are equal and reactive to light. Normal-appearing mucosa of the conjunctivae, oropharyngeal and nasal membrane mucosa. NECK: Supple. No JVD. No carotid bruit. No lymph node. No thyromegaly. CHEST AND LUNGS: Bilaterally symmetrical expansion and good air exchange. No rales and no rhonchi. CARDIOVASCULAR: PMI not localized. S1 and S2. Irregularly irregular. ABDOMEN: Normoactive bowel sounds. No tenderness. No organomegaly. No masses. EXTREMITIES: No cyanosis. No clubbing. No edema. CENTRAL NERVOUS SYSTEM: Alert, awake, and oriented x2. No neurological deficit could be appreciated, except for the right lower extremity weakness. ASSESSMENT: 1. Persistent painful ulcer in the glans penis. The differential diagnosis includes infectious versus inflammatory. 2. End-stage renal disease, on hemodialysis. 3. Hypertension. 4. Type 2 diabetes mellitus. PLAN: Discussed patient's condition with Dr. Holland, dermatology as well as urology, and case was reviewed. We will continue current medications and we will follow their recommendations, most likely the patient will need biopsy. Alverto Brower MD
[2016-09-19] MEDS: Clindamycin 600 MG in Sodium Chloride 0.9% 100 ML IVPB SCH ×3 (05:55→21:20)
[2016-09-19] MEDS: Multivitamin Vitamin B Complex (Nephro-Vite) Tab PO SCH (09:09)
[2016-09-19] MEDS: Ciprofloxacin 200mg/100ml D5W 100 ML IVPB SCH ×2 (09:10→20:16)
[2016-09-19] MEDS: Hydrophor Oint TOP SCH ×2 (09:16→16:42)
[2016-09-19] MEDS: Insulin Lispro (humaLOG) 100 Units/ml Inj SC SCH ×4 (09:16→21:18)
--- NOTE | 2016-09-19 17:10 | CP.PCM.PN ---
Subjective - Date & Time of Evaluation Date of Evaluation: 09/19/16 Time of Evaluation: 17:09 - Subjective Subjective: Follow up Nephrology Consultation Note Assessment: Stable Diabetic chronic Kidney Disease (E11.22) Hypertensive Chronic Kidney Disease (I12.0) End stage renal disease (N18.6) dependence on hemodialysis (Z99.2) (TTS) via AVF Anemia (D64.9), Hyperphosphatemia (E83.39), Secondary Hyperparathyroidism (E21.1 ), HTN (I12.0) Penile wound and infection Plan: Will plan for HD tuesday as per TTS schedule. no acute need today. Continue with Nephrovite 1 tab/day. PRBC as needed for anemia. Not on ROSE as last Hb 11.4 Continue with phos binders last phos level 3.7 Continue with calcitriol with dialysis. Last PTH level 161. BP control with meds as ordered. Patient not on RAAS nury as bp high will start losartan 50 mg/day Glycemic control, Dialysis consistent diet Further work up/management as per primary team Dose meds/antibiotics for ESRD status. Avoid fleets enema/magnesium based laxatives. Thanks for allowing me to participate in care of your patient. Will follow patient with you. Please call if any Qs Dr Nikita Wallace Office: [phone] Subjective: Noted events overnight. Patients feels okay. Denies chest pain, palpitation, shortness of breath, improved leg swelling. penile wound and infection better Physical Examination: General Appearance: Comfortable, in no acute respiratory distress, co- operative. Vitals reviewed and noted as below Lungs: Normal respiratory rate/effort. Breath sounds bilateral equal and clear Heart: Normal rate. s1s2 normal. No rub or gallop. Extremities: 1-2+ edema. Neurological: Patient is alert, awake and oriented to person, place and time. No focal deficit. Strength bilateral appropriate and equal Skin: Warm and dry. Normal turgor. No rash. Palpitation: Normal elasticity for age Abdomen: Abdomen is soft. Bowel sounds +. There is no abdominal tenderness, no guarding/rigidity or organomegaly : kidney or bladder not palpable. has penile wound and ulcer Access: AVF Labs/imaging reviewed. Past medical history, past surgical history, family history, social history, allergy reviewed Objective - Vital Signs/Intake and Output Vital Signs (last 24 hours): Temp Pulse Resp BP Pulse Ox 97.5 F L 63 17 161/94 H 98 09/19/16 15:46 09/19/16 16:42 09/19/16 15:46 09/19/16 16:42 09/19/16 15:46 - Medications Medications: Current Medications Aspirin (Ecotrin) 81 mg PO DAILY [facility] Last Admin: 09/19/16 09:21 Dose: 81 mg Atorvastatin Calcium (Lipitor) 20 mg PO HS [facility] Last Admin: 09/18/16 21:08 Dose: 20 mg Calcitriol (Rocaltrol) 0.25 mcg PO DAILY [facility] Last Admin: 09/19/16 09:10 Dose: 0.25 mcg Clonidine HCl (Catapres) 0.1 mg PO TID [facility] Last Admin: 09/19/16 16:37 Dose: 0.1 mg Heparin Sodium (Porcine) (Heparin) 5,000 units SC Q12 [facility] PRN Reason: Protocol Last Admin: 09/15/16 09:03 Dose: 5,000 units Hydromorphone HCl (Dilaudid) 0.5 mg IVP Q4 [facility] Last Admin: 09/19/16 16:38 Dose: Not Given Ciprofloxacin (Cipro 200mg/100ml D5w) 100 mls @ 100 mls/hr IVPB Q12 [facility] Last Admin: 09/19/16 09:10 Dose: 100 mls/hr Clindamycin Phosphate 600 mg/ (Sodium Chloride) 104 mls @ 104 mls/hr IVPB Q8@ 0600,1400,2200 [facility] Last Admin: 09/19/16 16:35 Dose: 104 mls/hr Insulin Human Lispro (Humalog) 0 units SC ACHS [facility] PRN Reason: Protocol Last Admin: 09/19/16 16:40 Dose: 2 units Losartan Potassium (Cozaar) 50 mg PO DAILY [facility] Last Admin: 09/19/16 15:42 Dose: 50 mg Metoprolol Tartrate (Lopressor) 50 mg PO BID [facility] Last Admin: 09/19/16 16:42 Dose: 50 mg Multi-Ingredient Ointment (Hydrophor Oint) 1 applic TOP BID [facility] Last Admin: 09/19/16 16:42 Dose: 1 applic Mupirocin (Bactroban Ointment) 1 applic TOP BID [facility] Last Admin: 09/19/16 16:38 Dose: 1 applic Sennosides (Senokot Tab) 8.6 mg PO TUTHSA [facility] Last Admin: 09/18/16 17:47 Dose: 8.6 mg Sertraline HCl (Zoloft) 50 mg PO HS [facility] Last Admin: 09/18/16 21:08 Dose: 50 mg Sevelamer HCl (Renagel) 3,200 mg PO TID [facility] Last Admin: 09/19/16 16:44 Dose: 3,200 mg Vitamin B Complex/Vit C/Folic Acid (Nephro-Jeff) 1 tab PO DAILY [facility] Last Admin: 09/19/16 09:09 Dose: 1 tab - Labs Labs: 09/16/16 06:35 09/16/16 06:35
[2016-09-20] MEDS: HYDROmorphone 0.5 mg/0.5 ml ISec IVP SCH (01:04)
[2016-09-20] MEDS: Clindamycin 600 MG in Sodium Chloride 0.9% 100 ML IVPB SCH ×2 (05:16→14:39)
--- NOTE | 2016-09-20 07:42 | PN ---
DATE: 09/19/2016 SUBJECTIVE: He still has pain on the genital area that requires pain medications. PHYSICAL EXAMINATION VITAL SIGNS: Blood pressure 161/94, temperature 97.5, respiratory rate 17 and pulse 63. HEENT: Pupils are equal and reactive to light. Slightly pale mucosa of the conjunctivae. NECK: Supple. No JVD, no carotid bruit, no lymph node, no thyromegaly. CHEST AND LUNGS: Bilaterally symmetrical expansion. Good air exchange. No rales, no rhonchi. CARDIOVASCULAR: PMI not localized. S1 and S2. No additional sounds. ABDOMEN: Normoactive bowel sounds. No tenderness, no organomegaly, no masses. EXTREMITIES: No cyanosis, no clubbing, no edema. CENTRAL NERVOUS SYSTEM: Alert, awake, oriented x2. No neurological deficit could be appreciated. ASSESSMENT 1. Severe painful genital ulcer on the glans penis. Differential diagnoses include infection versus neoplastic. 2. End-stage renal disease, on hemodialysis. 3. Hypertension. 4. Type 2 diabetes mellitus. PLAN: Continue current antibiotics and follow cultures done, and if no results gotten from these cultures, the patient will have a biopsy. Alverto Brower MD
[2016-09-20 10:10] LABS: HEMOGLOBIN 11.5 g/dL (12.0-18.0); MEAN CORPUSCULAR HEMOGLOBIN 31.2 pg (27.0-31.0); MEAN CORPUSCULAR HGB CONC 32.4 g/dL (33.0-37.0); RBC 3.7 Mil/uL (4.40-5.90); WHITE BLOOD COUNT 5.8 K/uL (4.8-10.8)
[2016-09-20 10:16] LABS: MEAN CELL VOLUME 96.3 fl (80.0-94.0)
[2016-09-20 10:19] LABS: ALB/GLOB RATIO 0.9 (1.0-2.1); CALCIUM 9.6 mg/dL (8.4-10.2)
--- NOTE | 2016-09-20 10:25 | CT ---
PROCEDURE: CT HEAD WITHOUT CONTRAST. HISTORY: Slurred Speech. COMPARISON: Comparison is made to the previous study dated 08/23/2016 TECHNIQUE: Axial computed tomography images were obtained through the head/brain without intravenous contrast. Radiation dose: Total exam DLP = mGy-cm. This CT exam was performed using one or more of the following dose reduction techniques: Automated exposure control, adjustment of the mA and/or kV according to patient size, and/or use of iterative reconstruction technique. FINDINGS: HEMORRHAGE: No intracranial hemorrhage. BRAIN: No mass effect or edema. Mild to moderate atrophy and chronic microvascular white matter ischemic changes are again seen . VENTRICLES: Unremarkable. No hydrocephalus. CALVARIUM: Unremarkable. PARANASAL SINUSES: Unremarkable as visualized. No significant inflammatory changes. MASTOID AIR CELLS: Unremarkable as visualized. No inflammatory changes. OTHER FINDINGS: None. IMPRESSION: No evidence of acute intracranial hemorrhage acute territorial infarct mass effect or midline shift. Svbo-tx-[id number] atrophy and chronic microvascular white matter ischemic changes.
[2016-09-20 10:35] LABS: INR 1.6 (0.9-1.2); PARTIAL THROMBOPLASTIN TIME 40.5 Seconds (25.6-37.1); PROTHROMBIN TIME 16.1 Seconds (9.8-13.1)
--- NOTE | 2016-09-20 11:08 | PCM.RRTMUL ---
TOWER TECHNICIAN Nurse Assessment - Situation TOWER TECHNICIAN Responder Arrival Time:: 09:47 Location:: [address] [place] [address] Room Number:: [id number] TOWER TECHNICIAN Reason for Call: Possible Stroke TOWER TECHNICIAN Called By: RN - Respiratory Oxygen Delivery Method:: Room Air - Diagnostic Test Ordered EKG:: Yes Chest X-Ray:: No CT Scan:: No - Stat Labs Ordered TOWER TECHNICIAN Stat Labs Ordered:: CBC, BMP, PT/PTT CPR started during TOWER TECHNICIAN?: No - Vital Signs Blood Pressure:: 140/83 Pulse Rate:: 89 Respiratory Rate:: 20 Temperature:: 97.6 F Oxygen Saturation:: 98 - Jessica Coma Scale Coma Scale Eye Opening:: Spontaneous Coma Scale Motor:: Obeys Commands Movement Coma Scale Verbal:: Oriented Coma Scale Total:: 15 - Time TOWER TECHNICIAN Ended Time TOWER TECHNICIAN Ended:: 10:20 - Vital Signs at end of TOWER TECHNICIAN Blood Pressure:: 166/93 Pulse Rate:: 78 Respiratory Rate:: 15 Temperature:: 98.4 F O2 Sat by Pulse Oximetry:: 97 - Recommendations 5) TOWER TECHNICIAN Level of Care Recommendations: Remain in current setting 6) Notifications: Attending Physician I.Reason for TOWER TECHNICIAN - A) Acute Change in Patient: Subjective: TOWER TECHNICIAN was called due to altered mental status/slurred speech. Pt is a 60 yo M with PMH cardiac disease, prior infarcts, rate-controlled A-fib , DM2. On arrival, pt did not appear in acute distress, but was noted to be slurring his speech. BP 195/82, HR 81. Fingerstick glucose 151. Pt was able to follow commands, had no motor or strength deficits. EKG was performed, showed rate controlled A-fib, evidence of old infarcts, no acute changes. Code stroke was called due to persistent slurred speech. CT w/o contrast was ordered. Pt was transferred to CT. Pt remained awake and alert throughout TOWER TECHNICIAN. A: This is a 60 yo M with pmh cardiac disease, a-fib, dm2 who had TOWER TECHNICIAN called due to slurred speech. NIH stroke scale score: 2. P: -CT w/o contrast -CBC, CMP, PT/INR/PTT -f/u results -neuro consult
--- NOTE | 2016-09-20 11:12 | CP.PCM.PN ---
Subjective - Date & Time of Evaluation Date of Evaluation: 09/20/16 Time of Evaluation: 11:11 - Subjective Subjective: No new event reported Patient appears to be stable No chest pain Objective - Vital Signs/Intake and Output Vital Signs (last 24 hours): Temp Pulse Resp BP Pulse Ox 97.6 F 89 20 140/83 99 09/20/16 11:08 09/20/16 11:08 09/20/16 11:08 09/20/16 11:08 09/20/16 09:56 - Medications Medications: Current Medications Aspirin (Ecotrin) 81 mg PO DAILY [facility] Last Admin: 09/19/16 09:21 Dose: 81 mg Atorvastatin Calcium (Lipitor) 20 mg PO HS [facility] Last Admin: 09/19/16 21:20 Dose: 20 mg Calcitriol (Rocaltrol) 0.25 mcg PO DAILY [facility] Last Admin: 09/19/16 09:10 Dose: 0.25 mcg Clonidine HCl (Catapres) 0.1 mg PO TID [facility] Last Admin: 09/19/16 16:37 Dose: 0.1 mg Heparin Sodium (Porcine) (Heparin) 5,000 units SC Q12 [facility] PRN Reason: Protocol Last Admin: 09/15/16 09:03 Dose: 5,000 units Ciprofloxacin (Cipro 200mg/100ml D5w) 100 mls @ 100 mls/hr IVPB Q12 [facility] Last Admin: 09/19/16 20:16 Dose: 100 mls/hr Clindamycin Phosphate 600 mg/ (Sodium Chloride) 104 mls @ 104 mls/hr IVPB Q8@ 0600,1400,2200 [facility] Last Admin: 09/20/16 05:16 Dose: 104 mls/hr Insulin Human Lispro (Humalog) 0 units SC ACHS [facility] PRN Reason: Protocol Last Admin: 09/19/16 21:18 Dose: Not Given Losartan Potassium (Cozaar) 50 mg PO DAILY [facility] Last Admin: 09/19/16 15:42 Dose: 50 mg Metoprolol Tartrate (Lopressor) 50 mg PO BID [facility] Last Admin: 09/19/16 16:42 Dose: 50 mg Multi-Ingredient Ointment (Hydrophor Oint) 1 applic TOP BID [facility] Last Admin: 09/19/16 16:42 Dose: 1 applic Mupirocin (Bactroban Ointment) 1 applic TOP BID [facility] Last Admin: 09/19/16 16:38 Dose: 1 applic Sennosides (Senokot Tab) 8.6 mg PO TUTHSA [facility] Last Admin: 09/18/16 17:47 Dose: 8.6 mg Sertraline HCl (Zoloft) 50 mg PO HS [facility] Last Admin: 09/19/16 21:20 Dose: 50 mg Sevelamer HCl (Renagel) 3,200 mg PO TID [facility] Last Admin: 09/19/16 16:44 Dose: 3,200 mg Vitamin B Complex/Vit C/Folic Acid (Nephro-Jeff) 1 tab PO DAILY [facility] Last Admin: 09/19/16 09:09 Dose: 1 tab - Labs Labs: 09/20/16 10:00 09/20/16 10:00 PT 16.1 Seconds (9.8-13.1) H 09/20/16 10:00 INR 1.6 (0.9-1.2) H 09/20/16 10:00 APTT 40.5 Seconds (25.6-37.1) H 09/20/16 10:00 - Constitutional Appears: No Acute Distress - ENT Exam ENT Exam: Mucous Membranes Moist - Respiratory Exam Respiratory Exam: NORMAL BREATHING PATTERN. absent: Chest Wall Tenderness, Rales - GI/Abdominal Exam GI & Abdominal Exam: Normal Bowel Sounds - Extremities Exam Extremities Exam: absent: Calf Tenderness - Back Exam Back Exam: absent: CVA tenderness (L), CVA tenderness (R) - Neurological Exam Neurological Exam: Alert Assessment and Plan (1) CKD (chronic kidney disease) requiring chronic dialysis Assessment & Plan: Patient admitted with cellulitis and wound infection of penis. With status post partial circumcision. Patient has multitude of medical history complicated related to diabetes mellitus with its complication / neuropathy multiple digit amputation, and multiple admission related to multiple infection congestive heart failure atrial fibrillation among other thin Continue hemodialysis as scheduled for tomorrow patient receiving antibiotics as noted. Status: Acute (2) Cellulitis Status: Acute (3) DM neuropathy, type II diabetes mellitus Status: Acute
[2016-09-20] MEDS: Insulin Lispro (humaLOG) 100 Units/ml Inj SC SCH ×4 (11:47→23:21)
[2016-09-20] MEDS: Multivitamin Vitamin B Complex (Nephro-Vite) Tab PO SCH (11:48)
[2016-09-20] MEDS: Ciprofloxacin 200mg/100ml D5W 100 ML IVPB SCH (11:49)
[2016-09-20] MEDS: Hydrophor Oint TOP SCH ×2 (12:30→17:02)
--- NOTE | 2016-09-20 13:09 | CP.PCM.PN ---
Subjective - Date & Time of Evaluation Date of Evaluation: 09/20/16 Time of Evaluation: 13:09 - Subjective Subjective: Id Note- Pt. seen and examined today on the tele floor. 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 his brain CT was negative for any acute findings as per report read by radiologist. currently pt. is awake and alert and is AAO x 3. He states earlier today he was slightly confused and saw flashes of light and he could not find his words but states he is much more alert now and his speech has returned to normal , he states he still feels slightly sluggish with his words though. denies any chills, denies any cough, denies any sob, denies any chest pain. Objective - Vital Signs/Intake and Output Vital Signs (last 24 hours): Temp Pulse Resp BP Pulse Ox 98.1 F 79 20 176/96 H 96 09/20/16 12:00 09/20/16 12:00 09/20/16 12:00 09/20/16 12:00 09/20/16 12:00 - Medications Medications: Current Medications Aspirin (Ecotrin) 81 mg PO DAILY [facility] Last Admin: 09/20/16 11:47 Dose: Not Given Atorvastatin Calcium (Lipitor) 20 mg PO HS [facility] Last Admin: 09/19/16 21:20 Dose: 20 mg Calcitriol (Rocaltrol) 0.25 mcg PO DAILY [facility] Last Admin: 09/20/16 11:48 Dose: Not Given Clonidine HCl (Catapres) 0.1 mg PO TID [facility] Last Admin: 09/20/16 11:44 Dose: Not Given Heparin Sodium (Porcine) (Heparin) 5,000 units SC Q12 [facility] PRN Reason: Protocol Last Admin: 09/15/16 09:03 Dose: 5,000 units Ciprofloxacin (Cipro 200mg/100ml D5w) 100 mls @ 100 mls/hr IVPB Q12 [facility] Last Admin: 09/20/16 11:49 Dose: Not Given Clindamycin Phosphate 600 mg/ (Sodium Chloride) 104 mls @ 104 mls/hr IVPB Q8@ 0600,1400,2200 [facility] Last Admin: 09/20/16 05:16 Dose: 104 mls/hr Insulin Human Lispro (Humalog) 0 units SC ACHS [facility] PRN Reason: Protocol Last Admin: 09/20/16 11:47 Dose: Not Given Losartan Potassium (Cozaar) 50 mg PO DAILY [facility] Last Admin: 09/20/16 11:46 Dose: Not Given Metoprolol Tartrate (Lopressor) 50 mg PO BID [facility] Last Admin: 09/20/16 11:47 Dose: Not Given Multi-Ingredient Ointment (Hydrophor Oint) 1 applic TOP BID [facility] Last Admin: 09/19/16 16:42 Dose: 1 applic Mupirocin (Bactroban Ointment) 1 applic TOP BID [facility] Last Admin: 09/19/16 16:38 Dose: 1 applic Sennosides (Senokot Tab) 8.6 mg PO TUTHSA [facility] Last Admin: 09/18/16 17:47 Dose: 8.6 mg Sertraline HCl (Zoloft) 50 mg PO HS [facility] Last Admin: 09/19/16 21:20 Dose: 50 mg Sevelamer HCl (Renagel) 3,200 mg PO TID [facility] Last Admin: 09/20/16 11:48 Dose: Not Given Vitamin B Complex/Vit C/Folic Acid (Nephro-Jeff) 1 tab PO DAILY [facility] Last Admin: 09/20/16 11:48 Dose: Not Given - Labs Labs: - Constitutional Appears: No Acute Distress - Head Exam Head Exam: ATRAUMATIC - Eye Exam Eye Exam: EOMI, PERRL - ENT Exam ENT Exam: Normal Oropharynx - Neck Exam Neck Exam: Full ROM - Respiratory Exam Respiratory Exam: Clear to Ausculation Bilateral, NORMAL BREATHING PATTERN - Cardiovascular Exam Cardiovascular Exam: REGULAR RHYTHM, +S1, +S2 - GI/Abdominal Exam GI & Abdominal Exam: Soft, Normal Bowel Sounds Additional comments: NT, ND - Neurological Exam Neurological Exam: Awake, Oriented x3 - Additional Findings Additional findings: Laboratory Results - last 72 hr 09/16/16 09/16/16 09/17/16 06:30 19:00 15:43 WBC RBC Hgb Hct MCV MCH MCHC RDW Plt Count PT INR APTT Sodium Potassium Chloride Carbon Dioxide Anion Gap BUN Creatinine Est GFR ( Amer) Est GFR (Non-Af Amer) POC Glucose (mg/dL) 181 H Random Glucose Calcium Total Bilirubin AST ALT Alkaline Phosphatase Ammonia Total Protein Albumin Globulin Albumin/Globulin Ratio PTH Intact Whole Molec 161 H HSV I IgG Ab <0.90 HSV II IgG 7.51 H 09/17/16 09/18/16 09/18/16 21:01 05:55 11:01 WBC RBC Hgb Hct MCV MCH MCHC RDW Plt Count PT INR APTT Sodium Potassium Chloride Carbon Dioxide Anion Gap BUN Creatinine Est GFR ( Amer) Est GFR (Non-Af Amer) POC Glucose (mg/dL) 175 H 150 H 177 H Random Glucose Calcium Total Bilirubin AST ALT Alkaline Phosphatase Ammonia Total Protein Albumin Globulin Albumin/Globulin Ratio PTH Intact Whole Molec HSV I IgG Ab HSV II IgG 09/18/16 09/18/16 09/19/16 15:57 21:51 05:52 WBC RBC Hgb Hct MCV MCH MCHC RDW Plt Count PT INR APTT Sodium Potassium Chloride Carbon Dioxide Anion Gap BUN Creatinine Est GFR ( Amer) Est GFR (Non-Af Amer) POC Glucose (mg/dL) 204 H 227 H 150 H Random Glucose Calcium Total Bilirubin AST ALT Alkaline Phosphatase Ammonia Total Protein Albumin Globulin Albumin/Globulin Ratio PTH Intact Whole Molec HSV I IgG Ab HSV II IgG 09/19/16 09/19/16 09/19/16 11:01 16:14 21:16 WBC RBC Hgb Hct MCV MCH MCHC RDW Plt Count PT INR APTT Sodium Potassium Chloride Carbon Dioxide Anion Gap BUN Creatinine Est GFR ( Amer) Est GFR (Non-Af Amer) POC Glucose (mg/dL) 165 H 155 H 135 H Random Glucose Calcium Total Bilirubin AST ALT Alkaline Phosphatase Ammonia Total Protein Albumin Globulin Albumin/Globulin Ratio PTH Intact Whole Molec HSV I IgG Ab HSV II IgG 09/20/16 09/20/16 09/20/16 05:29 09:44 10:00 WBC 5.8 RBC 3.70 L Hgb 11.5 L Hct 35.6 MCV 96.3 H D MCH 31.2 H MCHC 32.4 L RDW 19.0 H Plt Count 53 L PT INR APTT Sodium Potassium Chloride Carbon Dioxide Anion Gap BUN Creatinine Est GFR ( Amer) Est GFR (Non-Af Amer) POC Glucose (mg/dL) 109 153 H Random Glucose Calcium Total Bilirubin AST ALT Alkaline Phosphatase Ammonia Total Protein Albumin Globulin Albumin/Globulin Ratio PTH Intact Whole Molec HSV I IgG Ab HSV II IgG 09/20/16 09/20/16 09/20/16 10:00 10:00 11:45 WBC RBC Hgb Hct MCV MCH MCHC RDW Plt Count PT 16.1 H INR 1.6 H APTT 40.5 H Sodium 136 Potassium 5.2 H Chloride 100 Carbon Dioxide 23 Anion Gap 18 BUN 42 H Creatinine 4.6 H Est GFR ( Amer) 16 Est GFR (Non-Af Amer) 13 POC Glucose (mg/dL) Random Glucose 165 H Calcium 9.6 Total Bilirubin 2.2 H AST 17 D ALT 23 Alkaline Phosphatase 208 H Ammonia 35 Total Protein 8.6 H Albumin 4.0 Globulin 4.5 H Albumin/Globulin Ratio 0.9 L PTH Intact Whole Molec HSV I IgG Ab HSV II IgG 09/20/16 12:00 WBC RBC Hgb Hct MCV MCH MCHC RDW Plt Count PT INR APTT Sodium Potassium Chloride Carbon Dioxide Anion Gap BUN Creatinine Est GFR ( Amer) Est GFR (Non-Af Amer) POC Glucose (mg/dL) 188 H Random Glucose Calcium Total Bilirubin AST ALT Alkaline Phosphatase Ammonia Total Protein Albumin Globulin Albumin/Globulin Ratio PTH Intact Whole Molec HSV I IgG Ab HSV II IgG Microbiology 09/14/16 09:15 Blood Blood Culture - Final NO GROWTH AFTER 5 DAYS 09/14/16 09:15 Blood Gram Stain - Final TEST NOT PERFORMED 09/14/16 09:20 Blood Blood Culture - Final NO GROWTH AFTER 5 DAYS 09/14/16 09:20 Blood Gram Stain - Final TEST NOT PERFORMED 09/15/16 12:47 Penis GC Culture - Final NO GC ISOLATED 09/16/16 21:00 Other: Please Indicate Specimen Source - Final 09/16/16 21:00 Other: Please Indicate Herpes Simplex Virus Rapid Culture - Final 09/14/16 09:25 Abscess - Penis Gram Stain - Final 09/14/16 09:25 Abscess - Penis Wound Culture - Final Accession No. : [id number] Patient Name / ID : AYANA Dao / [id number] Exam Date : 09/20/2016 10:04:33 ( Approved ) Study Comment : Sex / Age : M / 60Y Creator : Sally River Dictator : Sally River Other Sports Official : [employer] Driver : Sally River Approver2 : Report Date : 09/20/2016 10:23:50 My Comment : PROCEDURE: CT HEAD WITHOUT CONTRAST. HISTORY: Slurred Speech. COMPARISON: Comparison is made to the previous study dated 08/23/2016 TECHNIQUE: Axial computed tomography images were obtained through the head/brain without intravenous contrast. Radiation dose: Total exam DLP = mGy-cm. This CT exam was performed using one or more of the following dose reduction techniques: Automated exposure control, adjustment of the mA and/or kV according to patient size, and/or use of iterative reconstruction technique. FINDINGS: HEMORRHAGE: No intracranial hemorrhage. BRAIN: No mass effect or edema. Mild to moderate atrophy and chronic microvascular white matter ischemic changes are again seen . VENTRICLES: Unremarkable. No hydrocephalus. CALVARIUM: Unremarkable. PARANASAL SINUSES: Unremarkable as visualized. No significant inflammatory changes. MASTOID AIR CELLS: Unremarkable as visualized. No inflammatory changes. OTHER FINDINGS: None. IMPRESSION: No evidence of acute intracranial hemorrhage acute territorial infarct mass effect or midline shift. Irgd-hy-umjfucww atrophy and chronic microvascular white matter ischemic changes. 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 s/p dorsal partial circumcision few days ago. afebrile and normal wbc count blood cx- neg x 2 penile wound cx-final report normal rissa penile swab cytology- negative for malignancy and no inclusion bodies as per pathologist report. HSV viral culture also negative. RPR- negative urine GC- negative HIV AB- negative HSV 2 IGG- pos HIV ab- neg plan- has completed 6 days of empiric clindamycin adn cipro for the penile lesion. advise to d/c both these antibiotics today as there is no resolution of the penile lesion and pt. will most likely need biopsy of the lesion for further evaluation and treatment. in light of negative herpes culture and no viral inclusion bodies on the cytology swab advise had d/c acyclovir and zovirax, however since the HSV 2 IGG is positive will keep the zovirax ointment on board for now pending further results. await dermatology evaluation. I still think patient should have biopsy of the lesion done and send that specimen for pathology along with AFB , fungal culture and regular culture. advise to possibly reduce or adjust patient's pain meds sine he had the episode of confusion?hallucination earlier today. all above d/w patient and also with .
[2016-09-21 07:18] LABS: HEMOGLOBIN 11.5 g/dL (12.0-18.0); MEAN CELL VOLUME 97.2 fl (80.0-94.0); MEAN CORPUSCULAR HEMOGLOBIN 31.6 pg (27.0-31.0); MEAN CORPUSCULAR HGB CONC 32.5 g/dL (33.0-37.0); RBC 3.65 Mil/uL (4.40-5.90); RED CELL DISTRIBUTION WIDTH 18.9 % (11.5-14.5); WHITE BLOOD COUNT 5.5 K/uL (4.8-10.8)
[2016-09-21 07:22] LABS: CALCIUM 9.4 mg/dL (8.4-10.2)
--- NOTE | 2016-09-21 08:27 | EEG ---
This is a 16-channel electroencephalogram of awake and drowsy adult. During the study, photic stimulation was performed, hyperventilation was not performed. The resting electroencephalogram consists of 20 to 30 microvolt diffuse low amplitude theta activities noted in parietal and occipital leads. Anteriorly, fast activity superimposed with 2 to 3 Hz delta activity seen in frontal and central leads. Intermittent temporal as well as frontal muscle artifact contaminated the background rhythm. The photic stimulation did not evoke driving response noted at 2 to 20 Hz. IMPRESSION: This is a mildly abnormal electroencephalogram because of persistent slowing throughout the record, suggestive of bilateral cerebral dysfunction. This is probably secondary to metabolic vascular degenerative process. Please correlate the finding with neurological and radiological studies. Juan Melendez MD
[2016-09-21] MEDS: Multivitamin Vitamin B Complex (Nephro-Vite) Tab PO SCH (08:32)
[2016-09-21] MEDS: Insulin Lispro (humaLOG) 100 Units/ml Inj SC SCH ×4 (08:34→22:06)
[2016-09-21] MEDS: Hydrophor Oint TOP SCH ×2 (08:35→16:48)
--- NOTE | 2016-09-21 08:39 | PN ---
DATE: 09/20/2016 SUBJECTIVE: The patient is seen today on 09/20/2016. He is not in any cardiopulmonary distress, but the patient was having difficulty with speech and visual hallucinations and incoherence. PHYSICAL EXAMINATION: VITAL SIGNS: Blood pressure is 177/108, temperature 97.8, respiratory rate 18, and pulse 97. HEENT: Pupils are equal and reactive to light. Normal-appearing mucosa of the conjunctiva, oropharynx, and nasal membrane mucosa. NECK: Supple. No JVD. No carotid bruit. No lymph node. No thyromegaly. CHEST AND LUNGS: Bilateral symmetrical expansion. Good air exchange. No rales. No rhonchi. CARDIOPULMONARY: PMI not localized. S1 and S2, irregularly irregular. No additional sounds. ABDOMEN: Normoactive bowel sounds. No tenderness. No organomegaly. No masses. EXTREMITIES: No cyanosis. No clubbing. No edema. CENTRAL NERVOUS SYSTEM: Alert, awake, and oriented x1. No neurological deficit except for bilateral lower extremity weakness, right more than the left. ASSESSMENT: 1. Painful lesion in the glans penis. Differential diagnosis infectious versus neoplastic. 2. Acute change of mental status, likely secondary to pain medications, rule out cardiovascular accident. 3. End-stage renal disease, on hemodialysis. 4. Hypertension. 5. Atrial fibrillation. Not on any anticoagulants as the patient was not tolerating and he was continuously bleeding. PLAN: Neuro check every 4 hours. We will contact Dermatology for possible biopsy. Continue current medications. Alverto Brower MD
--- NOTE | 2016-09-21 08:42 | CON ---
ATTENDING PHYSICIAN: Alverto Brower MD LOCATION: Room number 404, bed 1. REASON FOR CONSULTATION: Possible transient ischemic attack. CHIEF COMPLAINT: The patient was transferred from 6th floor to telemetry because of episode of slurred speech and facial asymmetry. From neurological point of view, I was called in to evaluate him to further management. HISTORY OF PRESENT ILLNESS: Mr. Alcon Lubin is a 60-year-old unfortunate right-handed male who carries a significant medical history of hypertension, chronic renal failure; on dialysis, [id number] diabetes mellitus, chronic pain syndrome, multiple infected ulcers including skin and penile area. He is getting medication following dialysis, he slept longer than usual, woke up with slurred speech and facial asymmetry. He also admit episode of slurred speech happening associated with some visual hallucination. He claims that while he was walking, he had disability and he could not able to walk because of he was unsteady, both knees gave up, and he could not be able to feel the feet. This has been going on for a while. Since then, he stopped walking because of the risk of fall. No history of loss of consciousness. No history of tremor. No history of involuntary movements. REVIEW OF SYSTEMS: All the 12-point system being reviewed. From neurological system, the patient has slurred speech, facial asymmetry, and losing balance. PERSONAL HISTORY: No history of smoking or alcohol use. ALLERGIES: NO KNOWN ALLERGIES. MEDICATIONS: Catapres, Cozaar, aspirin, Afrin, Humalog, atorvastatin, Lopressor, Renagel, Rocaltrol, Senna (sennosides), and Zoloft. PHYSICAL EXAMINATION VITAL SIGNS: Blood pressure 177/108, mean arterial pressure of 181, respiratory rate 16, and temperature afebrile. NECK: Supple. No carotid bruits. HEART: Heart sounds irregular with systolic murmur. At times, he is missing the beats. EXTREMITIES: Hyperemic, healed ulcers with some infected ulcers also seen. Left hand, multiple digits amputation noted. NEUROLOGIC: MENTAL STATUS: The patient is examined in the presence of his . He is awake, alert, and oriented to person, place and time. No retrograde as well as anterograde amnesia. No suicidal ideation. No depression. His mentation considering his acute change is normal. CRANIAL NERVE EXAMINATION: Visual field intact. Pupils reactive to light. Extraocular movement normal. No nystagmus. No facial sensory deficit. No facial asymmetry. Hearing is normal. Tongue is midline. Good gag. MOTOR EXAMINATION: Outstretched hand with eyes closed, no drift is noted. Power is symmetric on either side. Significant distal muscle group atrophy, more in arm as well as legs noted. The atrophy is more pronounced in the arm than his legs. Deep tendon reflexes are absent. Plantars are mute. SENSORY EXAMINATION: Significantly affecting the position sense. He could not able to feel how the toes as well as ankle moves either up or down. COORDINATION: [id number] test mild dysmetria, probably secondary to his neuropathy and atrophy of the distal muscle groups. WORKUP: CT of the head was reviewed by me, no acute pathology is noted. EKG, normal sinus rhythm. BLOOD WORKUP: WBC 5.8, hemoglobin 11.5, hematocrit 35.6, and platelet 53. PT 16.1, INR 1.6, and PTT 40.5. Sodium 136, potassium 5.2, chloride 100, bicarbonate 26, BUN 42, and glucose 188. Alkaline phosphatase 208, total protein 8.6, and globulin 4.5. CONCLUSION: 1. The patient has multiple episodes of change in mental status associating with slurred speech, at times visual hallucination, this is all related to possible iatrogenic effect. However, the focal facial asymmetry associated with slurred speech could be transient ischemic attack unless otherwise the source is identified. 2. Significant bilateral distal symmetric sensorimotor neuropathy affecting large as well as small fiber, this is probably secondary to end-stage renal disease and diabetes mellitus. 3. Uncontrolled hypertension, end-stage renal disease, neuropathy, as well as retinopathy. RECOMMENDATIONS: 1. I would like to keep Plavix in place of aspirin for next 6 months to see his transient ischemic attack process. 2. Avoid atypical neuroleptics. Avoid sedatives as much as possible. The patient should be on DVT prophylaxis and bedside physical therapy should be given. 3. The patient is claustrophobic, he does not want to have MRI of the brain. The patient should have a carotid Doppler. His electroencephalogram was reviewed, it showed bilateral slow activities without any paroxysmal activities or focal slowing. If the patient is medically stable, the patient can be transferred to the medical floor for the continuation of the antibiotic and blood pressure control. The patient's condition has been discussed with his . The patient will be followed closely while he is in the hospital. Juan Melendez MD
--- NOTE | 2016-09-21 10:42 | CARD ---
APPROVED REPORT EKG Measurement Heart [id number] <Conclusion> Atrial fibrillation with premature ventricular or aberrantly conducted complexes Left axis deviation Inferior infarct, age undetermined Anterior infarct, age undetermined Abnormal ECG
--- NOTE | 2016-09-21 11:44 | CP.PCM.PN ---
Subjective - Date & Time of Evaluation Date of Evaluation: 09/21/16 Time of Evaluation: 11:42 - Subjective Subjective: He was seen on hemodialysis now Vital signs stable Kidney is awake and conscious and no surrounding area although he described it to me it's not fully clear . And he appears to have some difficulty speech. Objective - Vital Signs/Intake and Output Vital Signs (last 24 hours): Temp Pulse Resp BP Pulse Ox 97.7 F 76 18 170/80 H 98 09/21/16 08:49 09/21/16 08:49 09/21/16 08:49 09/21/16 08:49 09/21/16 08:49 Intake and Output: 09/21/16 09/21/16 06:59 18:59 Intake Total 700 Balance 700 - Medications Medications: Current Medications Atorvastatin Calcium (Lipitor) 20 mg PO HS [facility] Last Admin: 09/20/16 21:19 Dose: 20 mg Calcitriol (Rocaltrol) 0.25 mcg PO DAILY [facility] Last Admin: 09/21/16 08:31 Dose: 0.25 mcg Clonidine HCl (Catapres) 0.1 mg PO TID [facility] Last Admin: 09/21/16 08:34 Dose: Not Given Clopidogrel Bisulfate (Plavix) 75 mg PO DAILY [facility] Last Admin: 09/21/16 08:33 Dose: 75 mg Heparin Sodium (Porcine) (Heparin) 5,000 units SC Q12 [facility] PRN Reason: Protocol Last Admin: 09/15/16 09:03 Dose: 5,000 units Insulin Human Lispro (Humalog) 0 units SC ACHS [facility] PRN Reason: Protocol Last Admin: 09/21/16 08:34 Dose: Not Given Losartan Potassium (Cozaar) 50 mg PO DAILY [facility] Last Admin: 09/21/16 08:33 Dose: 50 mg Metoprolol Tartrate (Lopressor) 50 mg PO BID [facility] Last Admin: 09/21/16 08:32 Dose: Not Given Multi-Ingredient Ointment (Hydrophor Oint) 1 applic TOP BID [facility] Last Admin: 09/21/16 08:35 Dose: 1 applic Mupirocin (Bactroban Ointment) 1 applic TOP BID [facility] Last Admin: 09/21/16 08:35 Dose: 1 applic Sennosides (Senokot Tab) 8.6 mg PO TUTHSA [facility] Last Admin: 09/18/16 17:47 Dose: 8.6 mg Sertraline HCl (Zoloft) 50 mg PO HS [facility] Last Admin: 09/20/16 21:19 Dose: 50 mg Sevelamer HCl (Renagel) 3,200 mg PO TID [facility] Last Admin: 09/21/16 08:33 Dose: 3,200 mg Vitamin B Complex/Vit C/Folic Acid (Nephro-Jeff) 1 tab PO DAILY [facility] Last Admin: 09/21/16 08:32 Dose: 1 tab - Labs Labs: 09/21/16 05:25 09/21/16 05:25 PT 16.1 Seconds (9.8-13.1) H 09/20/16 10:00 INR 1.6 (0.9-1.2) H 09/20/16 10:00 APTT 40.5 Seconds (25.6-37.1) H 09/20/16 10:00 - Constitutional Appears: No Acute Distress - ENT Exam ENT Exam: Mucous Membranes Moist - Respiratory Exam Respiratory Exam: Chest Wall Tenderness - Cardiovascular Exam Cardiovascular Exam: Irregular Rhythm. absent: JVD, Rubs - GI/Abdominal Exam GI & Abdominal Exam: Normal Bowel Sounds - Extremities Exam Extremities Exam: absent: Calf Tenderness - Back Exam Back Exam: absent: CVA tenderness (L), CVA tenderness (R) Assessment and Plan (1) CKD (chronic kidney disease) requiring chronic dialysis Assessment & Plan: Patient receiving dialysis and tolerating well with ultrafiltration goal about 2500 mL as tolerated Patient has episode of confusion and MFTS was called yesterday patient has CT scan of the brain and he was more hemorrhage or bleeding see the detailed. Patient admitted with cellulitis and wound infection of penis. With status post partial circumcision. Patient has multitude of medical history complicated related to diabetes mellitus with its complication / neuropathy multiple digit amputation, and multiple admission related to multiple infection congestive heart failure atrial fibrillation among other things Antibiotics has been discontinued as noted by the infectious disease from yesterday after this mental changes and confusion. Continue to monitor Status: Acute (2) Cellulitis Status: Acute (3) DM neuropathy, type II diabetes mellitus Status: Acute
--- NOTE | 2016-09-21 15:55 | US ---
PROCEDURE: Duplex ultrasound of the carotid and vertebral arteries. HISTORY: assess stenosis COMPARISON: None available. TECHNIQUE: Grayscale and duplex Doppler evaluation of the cervical carotid and vertebral arteries were performed. The common carotid, carotid bifurcations and cervical ICA and proximal ECA were evaluated. The vertebral arteries were evaluated for gross patency and direction. FINDINGS: RIGHT CAROTID ARTERIES: Common Carotid Artery: Normal. Maximal flow velocity of 59.6 cm/s. Carotid Bifurcation: Normal. Internal Carotid Artery:Normal. Maximal flow velocity of 76.4 cm/s. External Carotid Artery (proximal branches): Normal. Maximal flow velocity of 60.0 cm/s. ICA/CCA Ratio: 1.3 LEFT CAROTID ARTERIES: Common Carotid Artery: Normal. Maximal flow velocity of 64.4 cm/s. Carotid Bifurcation: Normal. Internal Carotid Artery:Normal. Maximal flow velocity of 84.1 cm/s. External Carotid Artery (proximal branches): Normal. Maximal flow velocity of 76.2 cm/s. ICA/CCA Ratio: 1.3 VERTEBRAL ARTERIES: Right Vertebral Artery: Patent. Antegrade flow. Left Vertebral Artery: Patent. Antegrade flow. OTHER FINDINGS: None. IMPRESSION: No hemodynamically significant stenosis by peak systolic velocity criteria.
--- NOTE | 2016-09-21 20:26 | CON ---
The patient may have coded during this hospital stay or his speech which may have become slurred may have been due to a medication the patient received during this hospital stay. The patient was transferred down to the PCU and is currently here on . His penile wound seems to be much better. The patient is in much less discomfort and pain at this hour seems to be responding well to his antibiotic and antiviral treatments. His penile wound today the dorsal slit wound seems to be healing well now at this point. There is no discharge or secretions from this wound at this time. Also the left glands penile ulcer also seems to be receding and improving at this time compared to just a few days ago. The cytology slides from pathology all came back negative for any malignancy and also negative for any viral etiology. There were no giant cells visualized. Also the wounds cultures also so far have come back showing no growth and no herpes infection. PLAN: To this patient is just observation at this time to observe this wound which may be now starting to heal. This will be discussed with Dr. Brower and also with Dr. Holland from dermatology. Cody Valverde MD [facility]
[2016-09-22] MEDS: Insulin Lispro (humaLOG) 100 Units/ml Inj SC SCH ×4 (08:24→21:46)
[2016-09-22] MEDS: Multivitamin Vitamin B Complex (Nephro-Vite) Tab PO SCH (08:31)
[2016-09-22] MEDS: Hydrophor Oint TOP SCH ×2 (08:34→17:55)
--- NOTE | 2016-09-22 13:23 | CP.PCM.PN ---
Subjective - Date & Time of Evaluation Date of Evaluation: 09/22/16 Time of Evaluation: 13:20 - Subjective Subjective: Patient appeared to be more comfortable Vital sign noted blood pressure is slightly elevated No chest pain no shortness of breath Objective - Vital Signs/Intake and Output Vital Signs (last 24 hours): Temp Pulse Resp BP Pulse Ox 97.8 F 84 18 172/96 H 100 09/22/16 11:59 09/22/16 12:16 09/22/16 11:59 09/22/16 12:16 09/22/16 11:59 - Medications Medications: Current Medications Atorvastatin Calcium (Lipitor) 20 mg PO [facility] Last Admin: 09/21/16 22:08 Dose: 20 mg Calcitriol (Rocaltrol) 0.25 mcg PO DAILY [facility] Last Admin: 09/22/16 08:33 Dose: 0.25 mcg Clonidine HCl (Catapres) 0.1 mg PO TID [facility] Last Admin: 09/22/16 12:16 Dose: 0.1 mg Clopidogrel Bisulfate (Plavix) 75 mg PO DAILY [facility] Last Admin: 09/22/16 08:31 Dose: 75 mg Heparin Sodium (Porcine) (Heparin) 5,000 units SC Q12 [facility] PRN Reason: Protocol Last Admin: 09/15/16 09:03 Dose: 5,000 units Insulin Human Lispro (Humalog) 0 units SC ACHS [facility] PRN Reason: Protocol Last Admin: 09/22/16 12:17 Dose: 3 units Losartan Potassium (Cozaar) 50 mg PO DAILY [facility] Last Admin: 09/22/16 08:31 Dose: 50 mg Metoprolol Tartrate (Lopressor) 50 mg PO BID [facility] Last Admin: 09/22/16 08:31 Dose: 50 mg Multi-Ingredient Ointment (Hydrophor Oint) 1 applic TOP BID [facility] Last Admin: 09/22/16 08:34 Dose: 1 applic Mupirocin (Bactroban Ointment) 1 applic TOP BID [facility] Last Admin: 09/22/16 08:34 Dose: 1 applic Sennosides (Senokot Tab) 8.6 mg PO TUTHSA [facility] Last Admin: 09/21/16 15:31 Dose: Not Given Sertraline HCl (Zoloft) 50 mg PO [facility] Last Admin: 09/21/16 22:09 Dose: 50 mg Sevelamer HCl (Renagel) 3,200 mg PO TID [facility] Last Admin: 09/22/16 12:15 Dose: 3,200 mg Vitamin B Complex/Vit C/Folic Acid (Nephro-Jeff) 1 tab PO DAILY [facility] Last Admin: 09/22/16 08:31 Dose: 1 tab - Labs Labs: 09/21/16 05:25 09/21/16 05:25 PT 16.1 Seconds (9.8-13.1) H 09/20/16 10:00 INR 1.6 (0.9-1.2) H 09/20/16 10:00 APTT 40.5 Seconds (25.6-37.1) H 09/20/16 10:00 - Constitutional Appears: No Acute Distress - ENT Exam ENT Exam: Mucous Membranes Moist - Respiratory Exam Respiratory Exam: NORMAL BREATHING PATTERN - Cardiovascular Exam Cardiovascular Exam: Irregular Rhythm. absent: Rubs - GI/Abdominal Exam GI & Abdominal Exam: Normal Bowel Sounds - Extremities Exam Extremities Exam: absent: Calf Tenderness - Back Exam Back Exam: absent: CVA tenderness (L), CVA tenderness (R) - Neurological Exam Neurological Exam: Alert Assessment and Plan (1) CKD (chronic kidney disease) requiring chronic dialysis Assessment & Plan: End stage renal disease receiving dialysis His mental changes appeared to be recover and coming back to normal perhaps related to with multiple antibiotics Patient scheduled for biopsy of the lesion Continue hemodialysis as scheduled Status: Acute (2) Cellulitis Status: Acute (3) DM neuropathy, type II diabetes mellitus Status: Acute
[2016-09-23 05:21] VITALS: RESP 18
[2016-09-23] MEDS: Insulin Lispro (humaLOG) 100 Units/ml Inj SC SCH ×2 (07:56→12:41)
[2016-09-23 08:01] VITALS: O2SAT 100
[2016-09-23] MEDS: Multivitamin Vitamin B Complex (Nephro-Vite) Tab PO SCH (08:43)
--- NOTE | 2016-09-23 08:55 | PN ---
SUBJECTIVE: The patient is seen today 09/21/2016. He is more alert and awake, in no cardiopulmonary distress. The pain in the genital area is decreasing. PHYSICAL EXAMINATION: VITAL SIGNS: Blood pressure is 123/66,temperature 98.4, respiratory rate 20, and pulse 79. HEENT: Pupils equal, reactive to light. Normal appearing mucosa of the conjunctivae, oropharyngeal, and nasal membrane mucosa. NECK: Supple. No JVD. No carotid bruit. No lymph node. No thyromegaly. CHEST AND LUNGS: Bilateral symmetrical expansion. Good air exchange. No rales. No rhonchi. CARDIOVASCULAR SYSTEM: PMI not localized. S1 and S2. No additional sounds. ABDOMEN: Normoactive bowel sounds. No tenderness. No organomegaly. No masses. EXTREMITIES: No cyanosis, no clubbing, no edema. CENTRAL NERVOUS SYSTEM: Alert, awake, and oriented x2. No neurological deficits could be appreciated. ASSESSMENT: Painful penile lesion. DIFFERENTIAL DIAGNOSES: 1. Infectious versus neoplastic. 2. Hypertension. 3. End-stage renal disease, on hemodialysis. 4. Type 2 diabetes mellitus. PLAN: Discussed the patient's condition with ID as well as with datapower developer who will perform biopsy on the patient. Continue hemodialysis and follow Neurology recommendations regarding the acute change in his mental status that happened yesterday. Chilango MD [facility]
[2016-09-23] MEDS: Hydrophor Oint TOP SCH (09:39)
[2016-09-23 12:30] VITALS: TEMP 98.1
--- NOTE | 2016-09-23 13:40 | CP.PCM.PN ---
Subjective - Date & Time of Evaluation Date of Evaluation: 09/23/16 Time of Evaluation: 01:30 - Subjective Subjective: Seen on dialysis Feels better Objective - Vital Signs/Intake and Output Vital Signs (last 24 hours): Temp Pulse Resp BP Pulse Ox 98.1 F 75 18 174/98 H 100 09/23/16 12:30 09/23/16 12:30 09/23/16 12:30 09/23/16 12:30 09/23/16 12:30 - Medications Medications: Current Medications Atorvastatin Calcium (Lipitor) 20 mg PO [facility] Last Admin: 09/22/16 21:45 Dose: 20 mg Calcitriol (Rocaltrol) 0.25 mcg PO DAILY [facility] Last Admin: 09/23/16 08:44 Dose: 0.25 mcg Clonidine HCl (Catapres) 0.1 mg PO TID [facility] Last Admin: 09/23/16 08:54 Dose: 0.1 mg Clopidogrel Bisulfate (Plavix) 75 mg PO DAILY [facility] Last Admin: 09/23/16 08:41 Dose: 75 mg Heparin Sodium (Porcine) (Heparin) 5,000 units SC Q12 [facility] PRN Reason: Protocol Last Admin: 09/15/16 09:03 Dose: 5,000 units Insulin Human Lispro (Humalog) 0 units SC ACHS [facility] PRN Reason: Protocol Last Admin: 09/23/16 07:56 Dose: Not Given Losartan Potassium (Cozaar) 50 mg PO DAILY [facility] Last Admin: 09/23/16 08:41 Dose: 50 mg Metoprolol Tartrate (Lopressor) 50 mg PO BID [facility] Last Admin: 09/23/16 08:42 Dose: 50 mg Multi-Ingredient Ointment (Hydrophor Oint) 1 applic TOP BID [facility] Last Admin: 09/22/16 17:55 Dose: 1 applic Mupirocin (Bactroban Ointment) 1 applic TOP BID [facility] Last Admin: 09/22/16 17:55 Dose: 1 applic Sennosides (Senokot Tab) 8.6 mg PO TUTHSA [facility] Last Admin: 09/21/16 15:31 Dose: Not Given Sertraline HCl (Zoloft) 50 mg PO [facility] Last Admin: 09/22/16 21:46 Dose: 50 mg Sevelamer HCl (Renagel) 3,200 mg PO TID [facility] Last Admin: 09/23/16 08:43 Dose: 3,200 mg Vitamin B Complex/Vit C/Folic Acid (Nephro-Jeff) 1 tab PO DAILY [facility] Last Admin: 09/23/16 08:43 Dose: 1 tab - Labs Labs: 09/21/16 05:25 09/21/16 05:25 PT 16.1 Seconds (9.8-13.1) H 09/20/16 10:00 INR 1.6 (0.9-1.2) H 09/20/16 10:00 APTT 40.5 Seconds (25.6-37.1) H 09/20/16 10:00 - Respiratory Exam Additional comments: Lungs clear - Cardiovascular Exam Cardiovascular Exam: Irregular Rhythm Additional comments: A.fib - GI/Abdominal Exam GI & Abdominal Exam: Soft Additional comments: Irreg. - Extremities Exam Additional comments: No edema Assessment and Plan - Assessment and Plan (Free Text) Assessment: ESRD on HD HTN chronic foot infection IDDM with complications Plan: Stable on dialysis. Continue HD per schedule
[2016-09-23 15:01] VITALS: BP 180/90; PULSE 73
== END 2016-09-23 15:32 | DRG 862 ==
LOC: H.ER 08:04 → H.ERHOLD 11:04 → H.MEDSURG1 12:12 → H.TEL 09-20 10:40
PROVIDERS: ADMIT Internal Medicine; ATTEND Internal Medicine
PROC: 5A1D60Z (ICD-10-PCS; principal; 2016-09-15)
PROC: 3E10X8Z Irrigation of Skin and Mucous Membranes using Irrigating Substance (ICD-10-PCS; 2016-09-15)
DX: T81.4XXA Infection following a procedure, initial encounter (principal); N18.6 End stage renal disease; N48.22 Cellulitis of corpus cavernosum and penis; N48.5 Ulcer of penis; I13.2 Hypertensive heart and chronic kidney disease with heart failure and with stage 5 chronic kidney disease, or end stage renal disease; E11.52 Type 2 diabetes mellitus with diabetic peripheral angiopathy with gangrene; E11.22 Type 2 diabetes mellitus with diabetic chronic kidney disease; I48.2 Chronic atrial fibrillation; N44.00 Torsion of testis, unspecified; E11.40 Type 2 diabetes mellitus with diabetic neuropathy, unspecified; Y83.8 Other surgical procedures as the cause of abnormal reaction of the patient, or of later complication, without mention of misadventure at the time of the procedure; I50.9 Heart failure, unspecified; G89.4 Chronic pain syndrome; E11.319 Type 2 diabetes mellitus with unspecified diabetic retinopathy without macular edema; E11.622 Type 2 diabetes mellitus with other skin ulcer; E78.5 Hyperlipidemia, unspecified; I25.10 Atherosclerotic heart disease of native coronary artery without angina pectoris; D64.9 Anemia, unspecified; G47.30 Sleep apnea, unspecified; R41.82 Altered mental status, unspecified; T39.8X5A Adverse effect of other nonopioid analgesics and antipyretics, not elsewhere classified, initial encounter; E83.39 Other disorders of phosphorus metabolism; Z99.2 Dependence on renal dialysis; Z88.0 Allergy status to penicillin; Z79.4 Long term (current) use of insulin; Z79.82 Long term (current) use of aspirin; Z89.112 Acquired absence of left hand; Z87.01 Personal history of pneumonia (recurrent); Z86.73 Personal history of transient ischemic attack (TIA), and cerebral infarction without residual deficits; Y92.239 Unspecified place in hospital as the place of occurrence of the external cause; Y92.9 Unspecified place or not applicable

== ENCOUNTER 2017-01-29 16:17 | Inpatient (IN) | payer MEDICARE ==
[2017-01-29 16:17] VITALS: PULSE 66; BMI 28.7
--- NOTE | 2017-01-29 16:35 | ED PDOC ---
Upper Extremity Pain/Injury Time Seen by Provider: 01/29/17 16:22 Chief Complaint (Nursing): Finger,Hand,&Wrist Chief Complaint (Provider): Left thumb infection History Per: Patient History/Exam Limitations: no limitations Onset/Duration Of Symptoms: Days (x1 week) Current Symptoms Are (Timing): Still Present Additional Complaint(s): 61 y/o male with a past medical history of end-stage renal disease (ESRD) on dialysis who presents to the emergency department, after referred from dialysis , complaining of a left hand thumb infection with swelling and purulent drainage from the top of the left thumb x1 week. Patient bites his nails and has had numerous digital amputations secondary to osteomyelitis. Denies fever or chills. PMD: Dr. Alverto Brower MD Past Medical History Reviewed: Historical Data, Nursing Documentation, Vital Signs Vital Signs: Last Vital Signs Temp 98.3 F 01/29/17 16:19 Pulse 92 H 01/29/17 16:19 Resp 16 01/29/17 16:19 BP 142/78 01/29/17 16:19 Pulse Ox 100 01/29/17 16:19 - Medical History PMH: Anemia, Anxiety, Arthritis, Atrial Fibrillation, CAD, Cardia Arrhythmia, CHF, Colonic Polyps (2012), Depression, Diabetes, Fractures (Right foot surgery) , HTN, Hypercholesterolemia, Hyperlipidemia, Pneumonia, End Stage Renal Disease (with dialysis), Chronic Kidney Disease, Sleep Apnea, TIA (2010) Denies: COPD, Hypothyroidism, Rheumatoid Arthritis - Surgical History Surgical History: Endoscopy - Family History Family History: States: Unknown Family Hx - Immunization History Hx Tetanus Toxoid Vaccination: No Hx Influenza Vaccination: Yes (2013) Hx Pneumococcal Vaccination: Yes (2013) - Home Medications Home Medications: Ambulatory Orders Medication Instructions Recorded Metoprolol Tartrate [Lopressor] 50 mg PO BID #0 tab 04/12/15 Sertraline [Zoloft] 50 mg PO HS 08/09/16 Sevelamer Carbonate [Renvela] 3,200 mg PO TID 08/09/16 Calcitriol [Rocaltrol] 0.25 mcg PO DAILY sgl 08/12/16 Atorvastatin [Lipitor] 20 mg PO HS 09/14/16 Mupirocin 2% Ointment [Bactroban 1 appl TOP BID 09/14/16 Ointment] Sennosides [Senokot] 8.6 mg PO TUTHSA 09/14/16 cloNIDine [Catapres] 0.1 mg PO TID 09/14/16 Clopidogrel [Plavix] 75 mg PO DAILY tab 09/23/16 Losartan [Cozaar] 50 mg PO DAILY tab 09/23/16 Ointment Base [Hydrophor Oint] 1 applic TOP BID 09/23/16 Alprazolam 0.25 mg PO HS 11/03/16 Aspirin [Ecotrin] 81 mg PO DAILY 11/03/16 Calcitriol 0.25 mcg PO DAILY 11/03/16 Insulin Lispro [Humalog (Insulin See Protocol [facility] 11/03/16 Lispro)] Metoclopramide [Reglan] 5 mg PO BID 11/03/16 oxyCODONE/Acetaminophen [Percocet 5 mg PRN PRN 11/03/16 5/325 mg Tab] - Allergies Allergies/Adverse Reactions: Allergies Allergy/AdvReac Type Severity Reaction Status Date / Time Penicillins Allergy ANAPHYLAXIS Verified 01/14/16 16:53 propofol Allergy ANAPHYLAXIS Verified 01/14/16 16:53 vitamin K2 Allergy SHORTNESS Verified 01/14/16 16:53 OF BREATH diphenhydramine HCl AdvReac ITCHING Verified 01/14/16 16:53 [From Benadryl] Review of Systems ROS Statement: Except As Marked, All Systems Reviewed And Found Negative (As per HPI, otherwise negative) Constitutional: Negative for: Fever, Chills Musculoskeletal: Positive for: Hand Pain (Left thumb swelling with purulent drainage noted) Physical Exam - Reviewed Nursing Documentation Reviewed: Yes Vital Signs Reviewed: Yes - Physical Exam Appears: Positive for: Non-toxic, No Acute Distress Head Exam: Positive for: ATRAUMATIC, NORMAL INSPECTION, NORMOCEPHALIC Skin: Positive for: Normal Color, Warm, Dry Cardiovascular/Chest: Positive for: Regular Rate, Rhythm. Negative for: Murmur Respiratory: Positive for: Normal Breath Sounds. Negative for: Accessory Muscle Use, Respiratory Distress Extremity: Positive for: Swelling (Left hand and left thumb (distal phalanx) erythema with swelling and purulent drainage noted. Swelling extends to the wrist. ) Neurologic/Psych: Positive for: Alert, Oriented (x3) - Laboratory Results Result Diagrams: 01/29/17 17:30 01/29/17 17:30 - ECG O2 Sat by Pulse Oximetry: 100 (RA) Pulse Ox Interpretation: Normal Medical Decision Making Medical Decision Making: Time: 162 Initial Impression: Left hand thumb infection Initial Plan: --VBG Shock Panel --CMP --CBC w/ diff --Blood & Wound Culture --Vancomycin 1,000 mg 250 mL IVPB --Left hand thumb x-ray --Reevaluation Time: 1758 --Hand x-ray FINDINGS: There is mild fragmentation of the tuft of the 1st distal phalanx with surrounding subcutaneous emphysema and cutaneous defect. Changes from prior amputation of the 5th digit at the level of the proximal metacarpal, 2nd digit at the level of the middle phalanx are redemonstrated. There is no free osseous destruction/ deformity is again seen involving the distal 3rd phalanx without significant change. Coil mass is again seen in the distal forearm soft tissues. IMPRESSION: Mild fragmentation of the tuft of the distal 1st phalanx with minimal surrounding subcutaneous emphysema and cutaneous defect. Findings may be related to trauma versus sequelae of infection. Clinical correlation is recommended. Scribe~Attestation: Documented by Nina Garcia, acting as a scribe for Isac Murdock MD. Provider Scribe~Attestation: All medical record entries made by the Scribe were at my direction and personally dictated by me. I have reviewed the chart and agree that the record accurately reflects my personal performance of the history, physical exam, medical decision making, and the department course for this patient. I have also personally directed, reviewed, and agree with the discharge instructions and disposition. Disposition - Clinical Impression Clinical Impression: CKD (chronic kidney disease) requiring chronic dialysis, Cellulitis, Osteomyelitis - Patient ED Disposition Is Patient to be Admitted: Yes - Disposition Disposition Time: 19:01 Condition: FAIR Forms: Textingly (Hungarian) - Pt Status Changed To: Hospital Disposition Of: Inpatient - Admit Certification Admit to Inpatient:: After my assessment, the patient will require hospitalization for at least two midnights. This is because of the severity of symptoms shown, intensity of services needed, and/or the medical risk in this patient being treated as an outpatient. - POA Present On Arrival: None
[2017-01-29 17:42] LABS: BASO # 0.1 K/uL (0.0-0.2); BASO % 1.2 % (0.0-2.0); EOS # 0.2 K/uL (0.0-0.7); EOS % 2.7 % (0.0-4.0); LYMPH # 0.7 K/uL (1.0-4.3); LYMPH % 9.1 % (20.0-40.0); MEAN CELL VOLUME 97.1 fl (80.0-94.0); MEAN CORPUSCULAR HEMOGLOBIN 31.5 pg (27.0-31.0); MEAN CORPUSCULAR HGB CONC 32.5 g/dL (33.0-37.0); MEAN PLATELET VOLUME 7.9 fl (7.2-11.7); MONO # 0.9 K/uL (0.0-0.8); NEUT # 6.1 K/uL (1.8-7.0); NRBC % 0.1 % (0.0-0.0); PLATELET COUNT 147 K/uL (130-400); RBC 3.49 Mil/uL (4.40-5.90); RED CELL DISTRIBUTION WIDTH 15.1 % (11.5-14.5)
[2017-01-29 17:53] LABS: ALBUMIN 4.2 g/dL (3.5-5.0); CALCIUM 9.3 mg/dL (8.4-10.2)
[2017-01-29 17:53] LABS: VENOUS BLOOD GAS BASE EXCESS 11.9 mmol/L (0.0-2.0); VENOUS BLOOD GAS PCO2 60 mmHg (40-60); VENOUS BLOOD GAS PO2 21 mm/Hg (30-55); VENOUS BLOOD PH 7.42 (7.32-7.43)
--- NOTE | 2017-01-29 18:00 | RAD ---
PROCEDURE: Left Thumb radiographs. HISTORY: infection COMPARISON: Left hand radiographs dated 09/29/2015. TECHNIQUE: AP radiograph of the left hand, as well as spot oblique and lateral images of thumb were obtained. FINDINGS: There is mild fragmentation of the tuft of the 1st distal phalanx with surrounding subcutaneous emphysema and cutaneous defect. Changes from prior amputation of the 5th digit at the level of the proximal metacarpal, 2nd digit at the level of the middle phalanx are redemonstrated. There is no free osseous destruction/ deformity is again seen involving the distal 3rd phalanx without significant change. Coil mass is again seen in the distal forearm soft tissues. IMPRESSION: Mild fragmentation of the tuft of the distal 1st phalanx with minimal surrounding subcutaneous emphysema and cutaneous defect. Findings may be related to trauma versus sequelae of infection. Clinical correlation is recommended.
[2017-01-29 18:10] LABS: ALB/GLOB RATIO 0.9 (1.0-2.1)
--- NOTE | 2017-01-29 19:39 | CP.PCM.HP ---
History of Present Illness - History of Present Illness History of Present Illness: CC: "finger" HPI: 61 M PMH significant for ESRD on HD, AFIB, DM, CHF, CAD, HTN, HLD, SLEEP APNEA, TIA 2010, presents with a one week history of constant moderate worsening to severe finger pain secondary to "nail biting." On examination, patient is missing fifth digit L hand, and at the distal end of L thumb patient has area of erythema, purulent drainage. Possible osteomyelitis. Hand XR: Mild fragmentation of the tuft of the distal 1st phalanx with minimal surrounding subcutaneous emphysema and cutaneous defect. Findings may be related to trauma versus sequelae of infection. Clinical correlation is recommended. Hand surgery and infectious disease both consulted. HD stable, admit to MS for further ABX and evaluation. ROS: per HPI all other systems reviewed and negative by me PMSH: Anemia, Anxiety, Arthritis, Atrial Fibrillation, CAD, Cardia Arrhythmia, CHF, Colonic Polyps (2012), Depression, Diabetes, Fractures (Right foot surgery) , HTN, Hypercholesterolemia, Hyperlipidemia, Pneumonia, End Stage Renal Disease (with dialysis), Chronic Kidney Disease, Sleep Apnea, TIA (2010) Family History: DENIES Social History: DENIES tobacco, ETOH, IVDU Meds: as below Allergies: as above Vitals Reviewed GEN: WDWN, ALERT, COOPERATIVE HEENT: NCAT, PERRL, EOMI HEART: RRR, +S1S2, NO MRG LUNG: CTAB, NO WRR ABD: SOFT, NT, ND, NO HSM, NO MASSES EXT: Left hand and left thumb (distal phalanx) erythema with swelling and purulent drainage, NORMAL PEDAL PULSES, GOOD CAPILLARY REFILL NEURO: AAOX3, STRENGTH EQUAL BILATERAL UPPER AND LOWER EXTREMITIES SKIN: WARM, DRY PSYCH: NORMAL MOOD, NORMAL AFFECT Present on Admission - Present on Admission Any Indicators Present on Admission: No Past Patient History - Infectious Disease Hx of Infectious Diseases: None - Past Medical History & Family History Past Medical History?: Yes - Past Social History Smoking Status: Never Smoked - CARDIAC Hx Atrial Fibrillation: Yes Hx Cardia Arrhythmia: Yes Hx Congestive Heart Failure: Yes Hx Hypercholesterolemia: Yes Hx Hypertension: Yes - PULMONARY Hx Chronic Obstructive Pulmonary Disease (COPD): No Hx Pneumonia: Yes Hx Sleep Apnea: Yes - NEUROLOGICAL Hx Transient Ischemic Attacks (TIA): Yes (2010) - HEENT Other/Comment: HX: RETINOPATHY 5 YEARS AGO - RENAL Hx Chronic Kidney Disease: Yes - ENDOCRINE/METABOLIC Hx Hypothyroidism: No - HEMATOLOGICAL/ONCOLOGICAL Hx Anemia: Yes - INTEGUMENTARY Other/Comment: ULCER BACK RIGHT THIGH - MUSCULOSKELETAL/RHEUMATOLOGICAL Hx Arthritis: Yes Hx Fractures: Yes (Right foot surgery) Hx Rheumatoid Arthritis: No - GASTROINTESTINAL Hx Gastrointestinal Disorders: Yes Hx Gastroesophageal Reflux: Yes Other/Comment: CONSTIPATION. ELEVATED LFTS. HEPATIC CIRRHOISIS - GENITOURINARY/GYNECOLOGICAL Hx Genitourinary Disorders: Yes Hx Prostate Problems: Yes (ENLARGED PROSTATE) Hx Urinary Tract Infection: Yes Other/Comment: PENILE CIRCUMCISION DUE TO INFECTION AUGUST 27 2016 - PSYCHIATRIC Hx Anxiety: Yes Hx Depression: Yes - SURGICAL HISTORY Hx Amputation: Yes (AMPUTATION OF LEFT HAND 1ST AND 4TH DIGIT) Hx Cardiac Catheterization: Yes Hx Eye Surgery: Yes (RETINOPATHY ) Hx Musculoskeletal Surgery: Yes (LUMBAR SPINE SX 2002) Hx Orthopedic Surgery: Yes (RUBI BREAK RIGHT FOOT 2012 SCREW AND METAL PLATES PLACED) Hx Vascular Surgery: Yes (AV FISTULA RIGHT FORE ARM) Other/Comment: PENILE CIRCUMCISION 08/27/16. LEFT HAND 1ST AND FOURTH DIGIT AMPUTATION 2015 - ANESTHESIA Hx Anesthesia: Yes Hx Anesthesia Reactions: Yes (PROPOFOL (CARDIAC ARREST)) Hx Malignant Hyperthermia: No Meds Allergies/Adverse Reactions: Allergies Allergy/AdvReac Type Severity Reaction Status Date / Time ciprofloxacin Allergy SWELLING Verified 01/29/17 20:53 Penicillins Allergy ANAPHYLAXIS Verified 01/14/16 16:53 propofol Allergy ANAPHYLAXIS Verified 01/14/16 16:53 vitamin K2 Allergy SHORTNESS Verified 01/14/16 16:53 OF BREATH diphenhydramine HCl AdvReac ITCHING Verified 01/14/16 16:53 [From Benadryl] Results - Vital Signs Recent Vital Signs: Last Vital Signs Temp 98.3 F 01/29/17 16:19 Pulse 92 H 01/29/17 16:19 Resp 16 01/29/17 16:19 BP 142/78 01/29/17 16:19 Pulse Ox 100 01/29/17 19:01 - Labs Result Diagrams: 01/29/17 17:30 01/30/17 05:30 Labs: Laboratory Results - last 24 hr 01/29/17 01/29/17 01/29/17 17:30 17:30 17:45 WBC 8.0 RBC 3.49 L Hgb 11.0 L Hct 33.9 L MCV 97.1 H MCH 31.5 H MCHC 32.5 L RDW 15.1 H Plt Count 147 MPV 7.9 Neut % (Auto) 76.0 H Lymph % (Auto) 9.1 L Anderson % (Auto) 11.0 H Eos % (Auto) 2.7 Baso % (Auto) 1.2 Neut # 6.1 Lymph # 0.7 L Anderson # 0.9 H Eos # 0.2 Baso # 0.1 pO2 21 L VBG pH 7.42 VBG pCO2 60 VBG HCO3 32.5 VBG Total CO2 40.7 H VBG O2 Sat (Calc) 36.6 L VBG Base Excess 11.9 H VBG Potassium 3.3 L Glucose 154 H Lactate 0.8 FiO2 21.0 Sodium 138 136.0 Potassium 3.6 Chloride 93 L 101.0 Carbon Dioxide 34 H Anion Gap 15 BUN 20 Creatinine 2.8 H Est GFR ( Amer) 28 Est GFR (Non-Af Amer) 23 Random Glucose 157 H Calcium 9.3 Total Bilirubin 1.4 H AST 18 ALT 19 L Alkaline Phosphatase 284 H Total Protein 9.0 H Albumin 4.2 Globulin 4.8 H Albumin/Globulin Ratio 0.9 L Venous Blood Potassium 3.3 L Assessment & Plan - Assessment and Plan (Free Text) Plan: 61 M PMH significant for ESRD on HD, AFIB, DM, CHF, CAD, HTN, HLD, SLEEP APNEA , TIA 2010, presents with a one week history of constant moderate worsening to severe finger pain secondary to "nail biting." On examination, patient is missing fifth digit L hand, and at the distal end of L thumb patient has area of erythema, purulent drainage. Possible osteomyelitis. Hand XR: Mild fragmentation of the tuft of the distal 1st phalanx with minimal surrounding subcutaneous emphysema and cutaneous defect. Findings may be related to trauma versus sequelae of infection. Clinical correlation is recommended. Hand surgery and infectious disease both consulted. HD stable, admit to MS for further ABX and evaluation. Possible Osteomyelitis L Thumb ID and Hand surgery consults appreciated and followed Aztreonam 2 gm IVPB Q8 Vancomycin 1 gm IVPB DAILY ESRD HD per Dr. Rodriguez Calcitriol [Rocaltrol] 0.25 mcg PO DAILY Sevelamer [Renagel] 3,200 mg PO TID CAD HLD Atorvastatin [Lipitor] 20 mg PO HS Aspirin [Ecotrin] 81 mg PO DAILY Clopidogrel [Plavix] 75 mg PO DAILY HTN Losartan [Cozaar] 50 mg PO DAILY Metoprolol Tartrate [Lopressor] 50 mg PO BID cloNIDine [Catapres] 0.1 mg PO TID DM Accuchecks and ISS cont GlipiZIDE [Glucotrol] 10 mg PO BID Anxiety/Depression ALPRAZolam [Xanax] 0.25 mg PO HS Sertraline [Zoloft] 50 mg PO HS VTE ppx Enoxaparin [Lovenox] 30 mg SC DAILY
[2017-01-29 21:03] LABS: BANDS 1 % (0-2); LYMPHOCYTE 12 % (20-50); NEUTROPHIL 75 % (42-75); TOTAL CELLS COUNTED 100
[2017-01-29 21:04] LABS: EOSINOPHIL 1 % (0-7); MONOCYTE 11 % (0-10); PLATELET ESTIMATE NORMAL (NORMAL)
[2017-01-29] MEDS: Aztreonam 2 GM in Sodium Chloride 0.9% 100 ML IVPB SCH (21:06)
[2017-01-30] MEDS: Aztreonam 2 GM in Sodium Chloride 0.9% 100 ML IVPB SCH ×3 (00:57→16:20)
[2017-01-30 08:20] LABS: CALCIUM 8.8 mg/dL (8.4-10.2)
[2017-01-30] MEDS: Enoxaparin 30 mg Syringe SC SCH (08:24)
--- NOTE | 2017-01-30 11:42 | CP.PCM.PN ---
Subjective - Date & Time of Evaluation Date of Evaluation: 01/30/17 Time of Evaluation: 11:41 - Subjective Subjective: pt doing well pain controlled ID and Hand surgery consulted, awaiting recommendations denies cp sob calf tenderness tolerating abx well hd stable Objective - Vital Signs/Intake and Output Vital Signs (last 24 hours): Temp Pulse Resp BP Pulse Ox 99.1 F 91 H 18 138/81 98 01/30/17 09:17 01/30/17 08:23 01/30/17 07:30 01/30/17 08:23 01/30/17 07:30 Vitals Reviewed GEN: WDWN, ALERT, COOPERATIVE HEENT: NCAT, PERRL, EOMI HEART: RRR, +S1S2, NO MRG LUNG: CTAB, NO WRR ABD: SOFT, NT, ND, NO HSM, NO MASSES EXT: NORMAL PEDAL PULSES, GOOD CAPILLARY REFILL, DISTAL THUMB EDEMA, ERYTHEMA, PURULENT DRAINAGE NEURO: AAOX3, STRENGTH EQUAL BILATERAL UPPER AND LOWER EXTREMITIES SKIN: WARM, DRY PSYCH: NORMAL MOOD, NORMAL AFFECT - Medications Medications: Current Medications Acetaminophen (Tylenol 325mg Tab) 650 mg PO Q4 PRN PRN Reason: Fever >100.4 F Last Admin: 01/30/17 08:17 Dose: 650 mg Alprazolam (Xanax) 0.25 mg PO HS [facility] Last Admin: 01/29/17 21:19 Dose: 0.25 mg Aspirin (Ecotrin) 81 mg PO DAILY [facility] Last Admin: 01/30/17 08:23 Dose: 81 mg Atorvastatin Calcium (Lipitor) 20 mg PO HS [facility] Last Admin: 01/29/17 21:06 Dose: 20 mg Calcitriol (Rocaltrol) 0.25 mcg PO DAILY [facility] Last Admin: 01/30/17 08:24 Dose: 0.25 mcg Clonidine HCl (Catapres) 0.1 mg PO TID [facility] Last Admin: 01/30/17 08:21 Dose: 0.1 mg Clopidogrel Bisulfate (Plavix) 75 mg PO DAILY [facility] Last Admin: 01/30/17 08:25 Dose: 75 mg Enoxaparin Sodium (Lovenox) 30 mg SC DAILY [facility] PRN Reason: Protocol Last Admin: 01/30/17 08:24 Dose: 30 mg Glipizide (Glucotrol) 10 mg PO BID [facility] Last Admin: 01/30/17 08:22 Dose: 10 mg Aztreonam 2 gm/ Sodium (Chloride) 100 mls @ 100 mls/hr IVPB Q8 [facility] PRN Reason: Protocol Last Admin: 01/30/17 08:19 Dose: 100 mls/hr Vancomycin HCl 1 gm/ Sodium (Chloride) 250 mls @ 166.667 mls/hr IVPB DAILY GRISELDA PRN Reason: Protocol Last Admin: 01/30/17 10:35 Dose: 166.667 mls/hr Losartan Potassium (Cozaar) 50 mg PO DAILY GRISELDA Last Admin: 01/30/17 08:23 Dose: 50 mg Metoprolol Tartrate (Lopressor) 50 mg PO BID GRISELDA Last Admin: 01/30/17 08:22 Dose: 50 mg Sertraline HCl (Zoloft) 50 mg PO HS [facility] Last Admin: 01/29/17 21:06 Dose: 50 mg Sevelamer HCl (Renagel) 3,200 mg PO TID GRISELDA Last Admin: 01/30/17 08:20 Dose: 3,200 mg - Labs Labs: 01/29/17 17:30 01/30/17 05:30 Assessment and Plan - Assessment and Plan (Free Text) Plan: 61 M PMH significant for ESRD on HD, AFIB, DM, CHF, CAD, HTN, HLD, SLEEP APNEA, TIA 2010, presents with a one week history of constant moderate worsening to severe finger pain secondary to "nail biting." On examination, patient is missing fifth digit L hand, and at the distal end of L thumb patient has area of erythema, purulent drainage. Possible osteomyelitis. Hand XR: Mild fragmentation of the tuft of the distal 1st phalanx with minimal surrounding subcutaneous emphysema and cutaneous defect. Findings may be related to trauma versus sequelae of infection. Clinical correlation is recommended. Hand surgery and infectious disease both consulted. HD stable, admit to MS for further ABX and evaluation. Possible Osteomyelitis L Thumb Hand XR: Mild fragmentation of the tuft of the distal 1st phalanx with minimal surrounding subcutaneous emphysema and cutaneous defect. Findings may be related to trauma versus sequelae of infection. Clinical correlation is recommended. ID and Hand surgery consults appreciated and followed Aztreonam 2 gm IVPB Q8 Vancomycin 1 gm IVPB DAILY ESRD HD per Dr. Rodriguez Calcitriol [Rocaltrol] 0.25 mcg PO DAILY Sevelamer [Renagel] 3,200 mg PO TID CAD HLD Atorvastatin [Lipitor] 20 mg PO HS Aspirin [Ecotrin] 81 mg PO DAILY Clopidogrel [Plavix] 75 mg PO DAILY HTN Losartan [Cozaar] 50 mg PO DAILY Metoprolol Tartrate [Lopressor] 50 mg PO BID cloNIDine [Catapres] 0.1 mg PO TID DM Accuchecks and ISS cont GlipiZIDE [Glucotrol] 10 mg PO BID Anxiety/Depression ALPRAZolam [Xanax] 0.25 mg PO HS Sertraline [Zoloft] 50 mg PO HS VTE ppx Enoxaparin [Lovenox] 30 mg SC DAILY
--- NOTE | 2017-01-30 12:47 | CP.PCM.CON ---
History of Present Illness - History of Present Illness History of Present Illness: renal consult notes 61 M with ESRD on HD, AFIB, DM, CHF, CAD, HTN, HLD, SLEEP APNEA, TIA 2010, is admitted with worsening severe finger pain secondary to "nail bit with distal end of L thumb patient concerning for osteomyelitis. ROS: per HPI all other systems reviewed and negative by me PMSH: Anemia, Anxiety, Arthritis, Atrial Fibrillation, CAD, Cardia Arrhythmia, CHF, Colonic Polyps (2012), Depression, Diabetes, Fractures (Right foot surgery) , HTN, Hypercholesterolemia, Hyperlipidemia, Pneumonia, End Stage Renal Disease (with dialysis), Chronic Kidney Disease, Sleep Apnea, TIA (2010) Family History: DENIES any kidney disease in family Social History: DENIES tobacco, ETOH, IVDU Review of Systems - Review of Systems All systems: reviewed and no additional remarkable complaints except Past Patient History - Infectious Disease Hx of Infectious Diseases: None - Past Medical History & Family History Past Medical History?: Yes - Past Social History Smoking Status: Never Smoked - CARDIAC Hx Atrial Fibrillation: Yes Hx Cardia Arrhythmia: Yes Hx Congestive Heart Failure: Yes Hx Hypercholesterolemia: Yes Hx Hypertension: Yes - PULMONARY Hx Chronic Obstructive Pulmonary Disease (COPD): No Hx Pneumonia: Yes Hx Sleep Apnea: Yes - NEUROLOGICAL Hx Transient Ischemic Attacks (TIA): Yes (2010) - HEENT Other/Comment: HX: RETINOPATHY 5 YEARS AGO - RENAL Hx Chronic Kidney Disease: Yes - ENDOCRINE/METABOLIC Hx Hypothyroidism: No - HEMATOLOGICAL/ONCOLOGICAL Hx Anemia: Yes - INTEGUMENTARY Other/Comment: ULCER BACK RIGHT THIGH - MUSCULOSKELETAL/RHEUMATOLOGICAL Hx Arthritis: Yes Hx Fractures: Yes (Right foot surgery) Hx Rheumatoid Arthritis: No - GASTROINTESTINAL Hx Gastrointestinal Disorders: Yes Hx Gastroesophageal Reflux: Yes Other/Comment: CONSTIPATION. ELEVATED LFTS. HEPATIC CIRRHOISIS - GENITOURINARY/GYNECOLOGICAL Hx Genitourinary Disorders: Yes Hx Prostate Problems: Yes (ENLARGED PROSTATE) Hx Urinary Tract Infection: Yes Other/Comment: PENILE CIRCUMCISION DUE TO INFECTION AUGUST 27 2016 - PSYCHIATRIC Hx Anxiety: Yes Hx Depression: Yes - SURGICAL HISTORY Hx Amputation: Yes (AMPUTATION OF LEFT HAND 1ST AND 4TH DIGIT) Hx Cardiac Catheterization: Yes Hx Eye Surgery: Yes (RETINOPATHY ) Hx Musculoskeletal Surgery: Yes (LUMBAR SPINE SX 2002) Hx Orthopedic Surgery: Yes (RUBI BREAK RIGHT FOOT 2011 SCREW AND METAL PLATES PLACED) Hx Vascular Surgery: Yes (AV FISTULA RIGHT FORE ARM) Other/Comment: PENILE CIRCUMCISION 08/27/16. LEFT HAND 1ST AND FOURTH DIGIT AMPUTATION 2016 - ANESTHESIA Hx Anesthesia: Yes Hx Anesthesia Reactions: Yes (PROPOFOL (CARDIAC ARREST)) Hx Malignant Hyperthermia: No Meds Allergies/Adverse Reactions: Allergies Allergy/AdvReac Type Severity Reaction Status Date / Time ciprofloxacin Allergy SWELLING Verified 01/29/17 20:53 Penicillins Allergy ANAPHYLAXIS Verified 01/14/16 16:53 propofol Allergy ANAPHYLAXIS Verified 01/14/16 16:53 vitamin K2 Allergy SHORTNESS Verified 01/14/16 16:53 OF BREATH diphenhydramine HCl AdvReac ITCHING Verified 01/14/16 16:53 [From Benadryl] - Medications Medications: Current Medications Acetaminophen (Tylenol 325mg Tab) 650 mg PO Q4 PRN PRN Reason: Fever >100.4 F Last Admin: 01/30/17 08:17 Dose: 650 mg Alprazolam (Xanax) 0.25 mg PO HS [facility] Last Admin: 01/29/17 21:19 Dose: 0.25 mg Aspirin (Ecotrin) 81 mg PO DAILY [facility] Last Admin: 01/30/17 08:23 Dose: 81 mg Atorvastatin Calcium (Lipitor) 20 mg PO HS [facility] Last Admin: 01/29/17 21:06 Dose: 20 mg Calcitriol (Rocaltrol) 0.25 mcg PO DAILY [facility] Last Admin: 01/30/17 08:24 Dose: 0.25 mcg Clonidine HCl (Catapres) 0.1 mg PO TID [facility] Last Admin: 01/30/17 12:32 Dose: 0.1 mg Clopidogrel Bisulfate (Plavix) 75 mg PO DAILY [facility] Last Admin: 01/30/17 08:25 Dose: 75 mg Enoxaparin Sodium (Lovenox) 30 mg SC DAILY [facility] PRN Reason: Protocol Last Admin: 01/30/17 08:24 Dose: 30 mg Glipizide (Glucotrol) 10 mg PO BID [facility] Last Admin: 01/30/17 08:22 Dose: 10 mg Aztreonam 2 gm/ Sodium (Chloride) 100 mls @ 100 mls/hr IVPB Q8 [facility] PRN Reason: Protocol Last Admin: 01/30/17 08:19 Dose: 100 mls/hr Vancomycin HCl 1 gm/ Sodium (Chloride) 250 mls @ 166.667 mls/hr IVPB DAILY [facility] PRN Reason: Protocol Last Admin: 01/30/17 10:35 Dose: 166.667 mls/hr Losartan Potassium (Cozaar) 50 mg PO DAILY [facility] Last Admin: 01/30/17 08:23 Dose: 50 mg Metoprolol Tartrate (Lopressor) 50 mg PO BID [facility] Last Admin: 01/30/17 08:22 Dose: 50 mg Sertraline HCl (Zoloft) 50 mg PO HS [facility] Last Admin: 01/29/17 21:06 Dose: 50 mg Sevelamer HCl (Renagel) 3,200 mg PO TID [facility] Last Admin: 01/30/17 12:33 Dose: 3,200 mg Physical Exam - Constitutional Appears: Well, Non-toxic - Head Exam Head Exam: NORMAL INSPECTION - Eye Exam Eye Exam: Normal appearance - ENT Exam ENT Exam: Mucous Membranes Moist - Respiratory Exam Respiratory Exam: NORMAL BREATHING PATTERN - Cardiovascular Exam Cardiovascular Exam: +S1, +S2 - GI/Abdominal Exam GI & Abdominal Exam: Soft - Neurological Exam Neurological exam: Alert, Oriented x3 Results - Vital Signs Recent Vital Signs: Last Vital Signs Temp 99.1 F 01/30/17 10:00 Pulse 91 H 01/30/17 12:32 Resp 17 01/30/17 10:00 BP 138/84 01/30/17 12:32 Pulse Ox 98 01/30/17 10:00 - Labs Result Diagrams: 01/30/17 13:15 01/30/17 05:30 Labs: Laboratory Results - last 24 hr 01/29/17 01/29/17 01/29/17 17:30 17:30 17:45 WBC 8.0 RBC 3.49 L Hgb 11.0 L Hct 33.9 L MCV 97.1 H MCH 31.5 H MCHC 32.5 L RDW 15.1 H Plt Count 147 MPV 7.9 Neut % (Auto) 76.0 H Lymph % (Auto) 9.1 L [place] % (Auto) 11.0 H Eos % (Auto) 2.7 Baso % (Auto) 1.2 Neut # 6.1 Lymph # 0.7 L [place] # 0.9 H Eos # 0.2 Baso # 0.1 Neutrophils % (Manual) 75 Band Neutrophils % 1 Lymphocytes % (Manual) 12 L Monocytes % (Manual) 11 H Eosinophils % (Manual) 1 Platelet Estimate Normal RBC Morphology Normal pO2 21 L VBG pH 7.42 VBG pCO2 60 VBG HCO3 32.5 VBG Total CO2 40.7 H VBG O2 Sat (Calc) 36.6 L VBG Base Excess 11.9 H VBG Potassium 3.3 L Glucose 154 H Lactate 0.8 FiO2 21.0 Sodium 138 136.0 Potassium 3.6 Chloride 93 L 101.0 Carbon Dioxide 34 H Anion Gap 15 BUN 20 Creatinine 2.8 H Est GFR ( Amer) 28 Est GFR (Non-Af Amer) 23 POC Glucose (mg/dL) Random Glucose 157 H Calcium 9.3 Total Bilirubin 1.4 H AST 18 ALT 19 L Alkaline Phosphatase 284 H Total Protein 9.0 H Albumin 4.2 Globulin 4.8 H Albumin/Globulin Ratio 0.9 L Venous Blood Potassium 3.3 L 01/29/17 01/30/17 01/30/17 22:03 05:14 05:30 WBC RBC Hgb Hct MCV MCH MCHC RDW Plt Count MPV Neut % (Auto) Lymph % (Auto) [place] % (Auto) Eos % (Auto) Baso % (Auto) Neut # Lymph # [place] # Eos # Baso # Neutrophils % (Manual) Band Neutrophils % Lymphocytes % (Manual) Monocytes % (Manual) Eosinophils % (Manual) Platelet Estimate RBC Morphology pO2 VBG pH VBG pCO2 VBG HCO3 VBG Total CO2 VBG O2 Sat (Calc) VBG Base Excess VBG Potassium Glucose Lactate FiO2 Sodium 138 Potassium 3.8 Chloride 95 L Carbon Dioxide 31 H Anion Gap 16 BUN 33 H Creatinine 3.7 H Est GFR ( Amer) 20 Est GFR (Non-Af Amer) 17 POC Glucose (mg/dL) 196 H 145 H Random Glucose 145 H Calcium 8.8 Total Bilirubin AST ALT Alkaline Phosphatase Total Protein Albumin Globulin Albumin/Globulin Ratio Venous Blood Potassium 01/30/17 10:50 WBC RBC Hgb Hct MCV MCH MCHC RDW Plt Count MPV Neut % (Auto) Lymph % (Auto) [place] % (Auto) Eos % (Auto) Baso % (Auto) Neut # Lymph # [place] # Eos # Baso # Neutrophils % (Manual) Band Neutrophils % Lymphocytes % (Manual) Monocytes % (Manual) Eosinophils % (Manual) Platelet Estimate RBC Morphology pO2 VBG pH VBG pCO2 VBG HCO3 VBG Total CO2 VBG O2 Sat (Calc) VBG Base Excess VBG Potassium Glucose Lactate FiO2 Sodium Potassium Chloride Carbon Dioxide Anion Gap BUN Creatinine Est GFR ( Amer) Est GFR (Non-Af Amer) POC Glucose (mg/dL) 170 H Random Glucose Calcium Total Bilirubin AST ALT Alkaline Phosphatase Total Protein Albumin Globulin Albumin/Globulin Ratio Venous Blood Potassium Assessment & Plan - Assessment and Plan (Free Text) Plan: ESRD/HTN/DM/osteomyelitis of hand/anemia hd tts per schedule lytes reviewed anemia monitor for any epo needs bp ok abx per primary team continue binders, calcitriol monitor phos levels
--- NOTE | 2017-01-30 13:29 | CP.PCM.CON ---
History of Present Illness - History of Present Illness History of Present Illness: Infectious Disease Consultation Note- asked to see this patient at there quest of hospitalist for left thumb infection. HPI- Patient is a 61 year old male well known to me from his previous admissions to this hospital for various digit autoinfections secondary to nail biting seconday to severe neuropathy who now presents to hospital this time with left thumb distal region swelling and some purulent discharge and pt. state it began 2 weeks ago and has been progressively getting worse. Pt. 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 for the other digit infections that he has had in the past and he has also required distal amputation of his left pinkey PMSH: Anemia, Anxiety, Arthritis, Atrial Fibrillation, CAD, Cardia Arrhythmia, CHF, Colonic Polyps (2012), Depression, Diabetes, Fractures (Right foot surgery) , HTN, Hypercholesterolemia, Hyperlipidemia, Pneumonia, End Stage Renal Disease (with dialysis), Chronic Kidney Disease, Sleep Apnea, TIA (2010) Family History: DENIES Social History: DENIES tobacco, ETOH, IVDU Meds: as below Allergies: as above Review of Systems - Review of Systems Review of Systems: ROS- denies any fever or chills, denies any TAPIA, denies any cough, denies any sob, denies any chest pain, denies any abd. pain, denies any diarrhea left thumb distal region with welling and erythema and small opening with purulent drainage for past 2 weeks secondary to nail biting Past Patient History - Infectious Disease Hx of Infectious Diseases: None - Past Medical History & Family History Past Medical History?: Yes - Past Social History Smoking Status: Never Smoked Home Situation {Lives}: With Family - CARDIAC Hx Atrial Fibrillation: Yes Hx Cardia Arrhythmia: Yes Hx Congestive Heart Failure: Yes Hx Hypercholesterolemia: Yes Hx Hypertension: Yes - PULMONARY Hx Chronic Obstructive Pulmonary Disease (COPD): No Hx Pneumonia: Yes Hx Sleep Apnea: Yes - NEUROLOGICAL Hx Transient Ischemic Attacks (TIA): Yes (2010) - HEENT Other/Comment: HX: RETINOPATHY 5 YEARS AGO - RENAL Hx Chronic Kidney Disease: Yes - ENDOCRINE/METABOLIC Hx Hypothyroidism: No - HEMATOLOGICAL/ONCOLOGICAL Hx Anemia: Yes - INTEGUMENTARY Other/Comment: ULCER BACK RIGHT THIGH - MUSCULOSKELETAL/RHEUMATOLOGICAL Hx Arthritis: Yes Hx Fractures: Yes (Right foot surgery) Hx Rheumatoid Arthritis: No - GASTROINTESTINAL Hx Gastrointestinal Disorders: Yes Hx Gastroesophageal Reflux: Yes Other/Comment: CONSTIPATION. ELEVATED LFTS. HEPATIC CIRRHOISIS - GENITOURINARY/GYNECOLOGICAL Hx Genitourinary Disorders: Yes Hx Prostate Problems: Yes (ENLARGED PROSTATE) Hx Urinary Tract Infection: Yes Other/Comment: PENILE CIRCUMCISION DUE TO INFECTION AUGUST 27 2016 - PSYCHIATRIC Hx Anxiety: Yes Hx Depression: Yes - SURGICAL HISTORY Hx Amputation: Yes (AMPUTATION OF LEFT HAND 1ST AND 4TH DIGIT) Hx Cardiac Catheterization: Yes Hx Eye Surgery: Yes (RETINOPATHY ) Hx Musculoskeletal Surgery: Yes (LUMBAR SPINE SX 2002) Hx Orthopedic Surgery: Yes (RUBI BREAK RIGHT FOOT 2012 SCREW AND METAL PLATES PLACED) Hx Vascular Surgery: Yes (AV FISTULA RIGHT FORE ARM) Other/Comment: PENILE CIRCUMCISION 08/27/16. LEFT HAND 1ST AND FOURTH DIGIT AMPUTATION 2015 - ANESTHESIA Hx Anesthesia: Yes Hx Anesthesia Reactions: Yes (PROPOFOL (CARDIAC ARREST)) Hx Malignant Hyperthermia: No Meds Allergies/Adverse Reactions: Allergies Allergy/AdvReac Type Severity Reaction Status Date / Time ciprofloxacin Allergy SWELLING Verified 01/29/17 20:53 Penicillins Allergy ANAPHYLAXIS Verified 01/14/16 16:53 propofol Allergy ANAPHYLAXIS Verified 01/14/16 16:53 vitamin K2 Allergy SHORTNESS Verified 01/14/16 16:53 OF BREATH diphenhydramine HCl AdvReac ITCHING Verified 01/14/16 16:53 [From Benadryl] - Medications Medications: Current Medications Acetaminophen (Tylenol 325mg Tab) 650 mg PO Q4 PRN PRN Reason: Fever >100.4 F Last Admin: 01/30/17 08:17 Dose: 650 mg Alprazolam (Xanax) 0.25 mg PO HS [facility] Last Admin: 01/29/17 21:19 Dose: 0.25 mg Aspirin (Ecotrin) 81 mg PO DAILY [facility] Last Admin: 01/30/17 08:23 Dose: 81 mg Atorvastatin Calcium (Lipitor) 20 mg PO HS [facility] Last Admin: 01/29/17 21:06 Dose: 20 mg Calcitriol (Rocaltrol) 0.25 mcg PO DAILY [facility] Last Admin: 01/30/17 08:24 Dose: 0.25 mcg Clonidine HCl (Catapres) 0.1 mg PO TID [facility] Last Admin: 01/30/17 12:32 Dose: 0.1 mg Clopidogrel Bisulfate (Plavix) 75 mg PO DAILY [facility] Last Admin: 01/30/17 08:25 Dose: 75 mg Enoxaparin Sodium (Lovenox) 30 mg SC DAILY [facility] PRN Reason: Protocol Last Admin: 01/30/17 08:24 Dose: 30 mg Glipizide (Glucotrol) 10 mg PO BID [facility] Last Admin: 01/30/17 08:22 Dose: 10 mg Aztreonam 2 gm/ Sodium (Chloride) 100 mls @ 100 mls/hr IVPB Q8 [facility] PRN Reason: Protocol Last Admin: 01/30/17 08:19 Dose: 100 mls/hr Vancomycin HCl 1 gm/ Sodium (Chloride) 250 mls @ 166.667 mls/hr IVPB DAILY [facility] PRN Reason: Protocol Last Admin: 01/30/17 10:35 Dose: 166.667 mls/hr Losartan Potassium (Cozaar) 50 mg PO DAILY [facility] Last Admin: 01/30/17 08:23 Dose: 50 mg Metoprolol Tartrate (Lopressor) 50 mg PO BID [facility] Last Admin: 01/30/17 08:22 Dose: 50 mg Sertraline HCl (Zoloft) 50 mg PO HS [facility] Last Admin: 01/29/17 21:06 Dose: 50 mg Sevelamer HCl (Renagel) 3,200 mg PO TID [facility] Last Admin: 01/30/17 12:33 Dose: 3,200 mg Physical Exam - Constitutional Appears: No Acute Distress - Head Exam Head Exam: ATRAUMATIC - ENT Exam ENT Exam: Normal Oropharynx - Neck Exam Neck exam: Positive for: Full Rom - Respiratory Exam Respiratory Exam: Clear to Auscultation Bilateral, NORMAL BREATHING PATTERN - Cardiovascular Exam Cardiovascular Exam: RRR, +S1, +S2 - GI/Abdominal Exam GI & Abdominal Exam: Normal Bowel Sounds, Soft Additional comments: ND, NT - Extremities Exam Additional comments: left distal thumb with erythema, edema small opening draining purulent fluid - Neurological Exam Neurological exam: Alert, Oriented x3 Results - Vital Signs Recent Vital Signs: Last Vital Signs Temp 99.1 F 01/30/17 10:00 Pulse 91 H 01/30/17 12:32 Resp 17 01/30/17 10:00 BP 138/84 01/30/17 12:32 Pulse Ox 98 01/30/17 10:00 - Labs Result Diagrams: 02/01/17 05:25 02/01/17 05:25 Labs: Laboratory Results - last 24 hr 01/29/17 01/29/17 01/29/17 17:30 17:30 17:45 WBC 8.0 RBC 3.49 L Hgb 11.0 L Hct 33.9 L MCV 97.1 H MCH 31.5 H MCHC 32.5 L RDW 15.1 H Plt Count 147 MPV 7.9 Neut % (Auto) 76.0 H Lymph % (Auto) 9.1 L [place] % (Auto) 11.0 H Eos % (Auto) 2.7 Baso % (Auto) 1.2 Neut # 6.1 Lymph # 0.7 L [place] # 0.9 H Eos # 0.2 Baso # 0.1 Neutrophils % (Manual) 75 Band Neutrophils % 1 Lymphocytes % (Manual) 12 L Monocytes % (Manual) 11 H Eosinophils % (Manual) 1 Platelet Estimate Normal RBC Morphology Normal pO2 21 L VBG pH 7.42 VBG pCO2 60 VBG HCO3 32.5 VBG Total CO2 40.7 H VBG O2 Sat (Calc) 36.6 L VBG Base Excess 11.9 H VBG Potassium 3.3 L Glucose 154 H Lactate 0.8 FiO2 21.0 Sodium 138 136.0 Potassium 3.6 Chloride 93 L 101.0 Carbon Dioxide 34 H Anion Gap 15 BUN 20 Creatinine 2.8 H Est GFR ( Amer) 28 Est GFR (Non-Af Amer) 23 POC Glucose (mg/dL) Random Glucose 157 H Calcium 9.3 Total Bilirubin 1.4 H AST 18 ALT 19 L Alkaline Phosphatase 284 H Total Protein 9.0 H Albumin 4.2 Globulin 4.8 H Albumin/Globulin Ratio 0.9 L Venous Blood Potassium 3.3 L 01/29/17 01/30/17 01/30/17 22:03 05:14 05:30 WBC RBC Hgb Hct MCV MCH MCHC RDW Plt Count MPV Neut % (Auto) Lymph % (Auto) [place] % (Auto) Eos % (Auto) Baso % (Auto) Neut # Lymph # [place] # Eos # Baso # Neutrophils % (Manual) Band Neutrophils % Lymphocytes % (Manual) Monocytes % (Manual) Eosinophils % (Manual) Platelet Estimate RBC Morphology pO2 VBG pH VBG pCO2 VBG HCO3 VBG Total CO2 VBG O2 Sat (Calc) VBG Base Excess VBG Potassium Glucose Lactate FiO2 Sodium 138 Potassium 3.8 Chloride 95 L Carbon Dioxide 31 H Anion Gap 16 BUN 33 H Creatinine 3.7 H Est GFR ( Amer) 20 Est GFR (Non-Af Amer) 17 POC Glucose (mg/dL) 196 H 145 H Random Glucose 145 H Calcium 8.8 Total Bilirubin AST ALT Alkaline Phosphatase Total Protein Albumin Globulin Albumin/Globulin Ratio Venous Blood Potassium 01/30/17 10:50 WBC RBC Hgb Hct MCV MCH MCHC RDW Plt Count MPV Neut % (Auto) Lymph % (Auto) [place] % (Auto) Eos % (Auto) Baso % (Auto) Neut # Lymph # [place] # Eos # Baso # Neutrophils % (Manual) Band Neutrophils % Lymphocytes % (Manual) Monocytes % (Manual) Eosinophils % (Manual) Platelet Estimate RBC Morphology pO2 VBG pH VBG pCO2 VBG HCO3 VBG Total CO2 VBG O2 Sat (Calc) VBG Base Excess VBG Potassium Glucose Lactate FiO2 Sodium Potassium Chloride Carbon Dioxide Anion Gap BUN Creatinine Est GFR ( Amer) Est GFR (Non-Af Amer) POC Glucose (mg/dL) 170 H Random Glucose Calcium Total Bilirubin AST ALT Alkaline Phosphatase Total Protein Albumin Globulin Albumin/Globulin Ratio Venous Blood Potassium Microbiology 01/29/17 17:30 Blood Blood Culture - Preliminary NO GROWTH AFTER 3 DAYS 01/29/17 17:30 Finger Gram Stain - Final 01/29/17 17:30 Finger Wound Culture - Final Staphylococcus Aureus Accession No. : [id number] Patient Name / ID : AYANA Dao / [id number] Exam Date : 01/29/2017 16:29:16 ( Approved ) Study Comment : Sex / Age : M / 61Y Creator : Walt Gallagher MD Dictator : Walt Gallagher MD Clinical Registered Nurse : Food Service Counter Clerk : Walt Gallagher MD Approver2 : Report Date : 01/29/2017 17:59:33 My Comment : PROCEDURE: Left Thumb radiographs. HISTORY: infection COMPARISON: Left hand radiographs dated 09/29/2015. TECHNIQUE: AP radiograph of the left hand, as well as spot oblique and lateral images of thumb were obtained. FINDINGS: There is mild fragmentation of the tuft of the 1st distal phalanx with surrounding subcutaneous emphysema and cutaneous defect. Changes from prior amputation of the 5th digit at the level of the proximal metacarpal, 2nd digit at the level of the middle phalanx are redemonstrated. There is no free osseous destruction/ deformity is again seen involving the distal 3rd phalanx without significant change. Coil mass is again seen in the distal forearm soft tissues. IMPRESSION: Mild fragmentation of the tuft of the distal 1st phalanx with minimal surrounding subcutaneous emphysema and cutaneous defect. Findings may be related to trauma versus sequelae of infection. Clinical correlation is recommended. Assessment & Plan (1) CKD (chronic kidney disease) requiring chronic dialysis Status: Acute (2) Cellulitis and abscess Status: Acute (3) Osteomyelitis Status: Acute (4) ESRD on hemodialysis Status: Acute (5) Diabetic neuropathy Status: Acute - Assessment and Plan (Free Text) Assessment: A/P- 61 year old male with ESRD On HD, DM II, HTN, neuropahty with auto infection with naul biting admtted with left distal thumb infection. afebrile normal wbc count left thumb wound cx- MRSA blood cx- neg x 2 Plan- In light of previous h/o OM of the digits secondary to infections secondary to nailbiting would assume that this infection is deep as well and hence treat for presumed OM. check ESR. patient has tolerated the IV vanco well w/o any juan carlos difficulty. advise to continue with IV vanco post Hd days. keep trough <15. await hand specialist consultation. pt. may require debridement of the distal digit. monitor hearing while on vancomycin. Thank you for allowing me to take part in the care of this patient. will f/u.
[2017-01-30 13:39] LABS: BASO # 0.1 K/uL (0.0-0.2); BASO % 0.5 % (0.0-2.0); EOS # 0.2 K/uL (0.0-0.7); EOS % 1.5 % (0.0-4.0); HEMOGLOBIN 10.6 g/dL (12.0-18.0); LYMPH # 0.7 K/uL (1.0-4.3); LYMPH % 7.2 % (20.0-40.0); MEAN CELL VOLUME 97.3 fl (80.0-94.0); MEAN CORPUSCULAR HEMOGLOBIN 31.9 pg (27.0-31.0); MEAN CORPUSCULAR HGB CONC 32.8 g/dL (33.0-37.0); MEAN PLATELET VOLUME 8.1 fl (7.2-11.7); MONO # 1.1 K/uL (0.0-0.8); MONO % 10.8 % (0.0-10.0); NRBC % 0.1 % (0.0-0.0); RBC 3.33 Mil/uL (4.40-5.90); RED CELL DISTRIBUTION WIDTH 14.8 % (11.5-14.5)
[2017-01-31] MEDS: Aztreonam 2 GM in Sodium Chloride 0.9% 100 ML IVPB SCH ×3 (00:31→17:26)
[2017-01-31 06:20] LABS: BASO # 0.1 K/uL (0.0-0.2); BASO % 0.6 % (0.0-2.0); EOS # 0.2 K/uL (0.0-0.7); EOS % 2.9 % (0.0-4.0); HEMOGLOBIN 10.6 g/dL (12.0-18.0); LYMPH # 0.9 K/uL (1.0-4.3); LYMPH % 11.9 % (20.0-40.0); MEAN CELL VOLUME 96.6 fl (80.0-94.0); MEAN CORPUSCULAR HEMOGLOBIN 31.7 pg (27.0-31.0); MEAN CORPUSCULAR HGB CONC 32.8 g/dL (33.0-37.0); MEAN PLATELET VOLUME 8.3 fl (7.2-11.7); MONO # 0.9 K/uL (0.0-0.8); MONO % 11.5 % (0.0-10.0); NEUT # 5.7 K/uL (1.8-7.0); NEUT % 73.1 % (50.0-75.0); NRBC % 0.1 % (0.0-0.0); RBC 3.34 Mil/uL (4.40-5.90); RED CELL DISTRIBUTION WIDTH 14.7 % (11.5-14.5); WHITE BLOOD COUNT 7.9 K/uL (4.8-10.8)
[2017-01-31 07:01] LABS: CALCIUM 9.1 mg/dL (8.4-10.2)
[2017-01-31] MEDS: Enoxaparin 30 mg Syringe SC SCH (08:57)
--- NOTE | 2017-01-31 09:23 | CP.PCM.PN ---
Subjective - Date & Time of Evaluation Date of Evaluation: 01/31/17 Time of Evaluation: 09:21 - Subjective Subjective: cc: osteomyelitis doing well tolerating abx without issue no cp sob calf tenderness HD stable NAD Objective - Vital Signs/Intake and Output Vital Signs (last 24 hours): Temp Pulse Resp BP Pulse Ox 98.3 F 78 20 123/80 96 01/31/17 08:09 01/31/17 08:53 01/31/17 08:09 01/31/17 08:53 01/31/17 08:09 Vitals Reviewed GEN: WDWN, ALERT, COOPERATIVE HEENT: NCAT, PERRL, EOMI HEART: RRR, +S1S2, NO MRG LUNG: CTAB, NO WRR ABD: SOFT, NT, ND, NO HSM, NO MASSES EXT: NORMAL PEDAL PULSES, GOOD CAPILLARY REFILL, DISTAL THUMB EDEMA, ERYTHEMA, PURULENT DRAINAGE NEURO: AAOX3, STRENGTH EQUAL BILATERAL UPPER AND LOWER EXTREMITIES SKIN: WARM, DRY PSYCH: NORMAL MOOD, NORMAL AFFECT - Medications Medications: Current Medications Acetaminophen (Tylenol 325mg Tab) 650 mg PO Q4 PRN PRN Reason: Fever >100.4 F Last Admin: 01/30/17 19:05 Dose: 650 mg Alprazolam (Xanax) 0.25 mg PO HS [facility] Last Admin: 01/30/17 21:25 Dose: 0.25 mg Aspirin (Ecotrin) 81 mg PO DAILY [facility] Last Admin: 01/31/17 08:56 Dose: 81 mg Atorvastatin Calcium (Lipitor) 20 mg PO HS [facility] Last Admin: 01/30/17 21:25 Dose: 20 mg Calcitriol (Rocaltrol) 0.25 mcg PO DAILY [facility] Last Admin: 01/31/17 08:56 Dose: 0.25 mcg Clonidine HCl (Catapres) 0.1 mg PO TID [facility] Last Admin: 01/31/17 08:53 Dose: 0.1 mg Clopidogrel Bisulfate (Plavix) 75 mg PO DAILY [facility] Last Admin: 01/31/17 08:58 Dose: 75 mg Enoxaparin Sodium (Lovenox) 30 mg SC DAILY [facility] PRN Reason: Protocol Last Admin: 01/31/17 08:57 Dose: 30 mg Glipizide (Glucotrol) 10 mg PO BID [facility] Last Admin: 12/25/17 08:55 Dose: 10 mg Aztreonam 2 gm/ Sodium (Chloride) 100 mls @ 100 mls/hr IVPB Q8 [facility] PRN Reason: Protocol Last Admin: 01/31/17 08:55 Dose: 100 mls/hr Vancomycin HCl 1 gm/ Sodium (Chloride) 250 mls @ 166.667 mls/hr IVPB DAILY [facility] PRN Reason: Protocol Last Admin: 01/30/17 10:35 Dose: 166.667 mls/hr Losartan Potassium (Cozaar) 50 mg PO DAILY [facility] Last Admin: 01/30/17 08:23 Dose: 50 mg Metoprolol Tartrate (Lopressor) 50 mg PO BID [facility] Last Admin: 01/30/17 18:21 Dose: Not Given Sertraline HCl (Zoloft) 50 mg PO HS [facility] Last Admin: 01/30/17 21:25 Dose: 50 mg Sevelamer HCl (Renagel) 3,200 mg PO TID [facility] Last Admin: 01/31/17 08:55 Dose: 3,200 mg - Labs Labs: 01/31/17 05:10 01/31/17 05:10 Assessment and Plan - Assessment and Plan (Free Text) Plan: 61 M PMH significant for ESRD on HD, AFIB, DM, CHF, CAD, HTN, HLD, SLEEP APNEA, TIA 2010, presents with a one week history of constant moderate worsening to severe finger pain secondary to "nail biting." On examination, patient is missing fifth digit L hand, and at the distal end of L thumb patient has area of erythema, purulent drainage. Possible osteomyelitis. Hand XR: Mild fragmentation of the tuft of the distal 1st phalanx with minimal surrounding subcutaneous emphysema and cutaneous defect. Findings may be related to trauma versus sequelae of infection. Clinical correlation is recommended. Hand surgery and infectious disease both consulted. HD stable, admit to [facility] for further ABX and evaluation. Possible Osteomyelitis L Thumb Hand XR: Mild fragmentation of the tuft of the distal 1st phalanx with minimal surrounding subcutaneous emphysema and cutaneous defect. Findings may be related to trauma versus sequelae of infection. Clinical correlation is recommended. ID and Hand surgery consults appreciated and followed ABX DAY 2 (Initiated on 01/30/17) Aztreonam 2 gm IVPB Q8 Vancomycin 1 gm IVPB DAILY ESRD HD TTS per Dr. Rodriguez/Dr. Sanders Calcitriol [Rocaltrol] 0.25 mcg PO DAILY Sevelamer [Renagel] 3,200 mg PO TID CAD HLD Atorvastatin [Lipitor] 20 mg PO HS Aspirin [Ecotrin] 81 mg PO DAILY Clopidogrel [Plavix] 75 mg PO DAILY HTN Losartan [Cozaar] 50 mg PO DAILY Metoprolol Tartrate [Lopressor] 50 mg PO BID cloNIDine [Catapres] 0.1 mg PO TID DM Accuchecks and ISS cont GlipiZIDE [Glucotrol] 10 mg PO BID Anxiety/Depression ALPRAZolam [Xanax] 0.25 mg PO HS Sertraline [Zoloft] 50 mg PO HS VTE ppx Enoxaparin [Lovenox] 30 mg SC DAILY
[2017-02-01] MEDS: Aztreonam 2 GM in Sodium Chloride 0.9% 100 ML IVPB SCH ×3 (00:57→16:45)
[2017-02-01 06:46] LABS: HEMOGLOBIN 9.6 g/dL (12.0-18.0); MEAN CELL VOLUME 98.4 fl (80.0-94.0); MEAN CORPUSCULAR HEMOGLOBIN 31.6 pg (27.0-31.0); MEAN CORPUSCULAR HGB CONC 32.1 g/dL (33.0-37.0); RBC 3.05 Mil/uL (4.40-5.90); RED CELL DISTRIBUTION WIDTH 15.6 % (11.5-14.5); WHITE BLOOD COUNT 7.8 K/uL (4.8-10.8)
[2017-02-01 07:12] LABS: CALCIUM 8.9 mg/dL (8.4-10.2)
[2017-02-01] MEDS: Enoxaparin 30 mg Syringe SC SCH (08:54)
--- NOTE | 2017-02-01 13:38 | CP.PCM.PN ---
Subjective - Date & Time of Evaluation Date of Evaluation: 02/01/17 Time of Evaluation: 13:32 - Subjective Subjective: Dialysis note Patient started on hemodialysis now Via A-V shunt. Patient is conscious and alert. No chest pain no shortness of breath No nausea or vomiting Objective - Vital Signs/Intake and Output Vital Signs (last 24 hours): Temp Pulse Resp BP Pulse Ox 98 F 90 20 106/60 100 02/01/17 08:11 02/01/17 08:54 02/01/17 08:11 02/01/17 08:54 02/01/17 08:11 - Medications Medications: Current Medications Acetaminophen (Tylenol 325mg Tab) 650 mg PO Q4 PRN PRN Reason: Fever >100.4 F Last Admin: 01/31/17 18:21 Dose: 650 mg Alprazolam (Xanax) 0.25 mg PO HS [facility] Last Admin: 01/31/17 22:08 Dose: 0.25 mg Aspirin (Ecotrin) 81 mg PO DAILY [facility] Last Admin: 02/01/17 08:53 Dose: 81 mg Atorvastatin Calcium (Lipitor) 20 mg PO HS [facility] Last Admin: 01/31/17 22:08 Dose: 20 mg Calcitriol (Rocaltrol) 0.25 mcg PO DAILY [facility] Last Admin: 02/01/17 08:56 Dose: 0.25 mcg Clonidine HCl (Catapres) 0.1 mg PO TID [facility] Last Admin: 02/01/17 08:52 Dose: Not Given Clopidogrel Bisulfate (Plavix) 75 mg PO DAILY [facility] Last Admin: 02/01/17 08:55 Dose: 75 mg Enoxaparin Sodium (Lovenox) 30 mg SC DAILY [facility] PRN Reason: Protocol Last Admin: 02/01/17 08:54 Dose: 30 mg Glipizide (Glucotrol) 10 mg PO BID [facility] Last Admin: 02/01/17 08:54 Dose: 10 mg Aztreonam 2 gm/ Sodium (Chloride) 100 mls @ 100 mls/hr IVPB Q8 [facility] PRN Reason: Protocol Last Admin: 02/01/17 08:51 Dose: 100 mls/hr Vancomycin HCl 1 gm/ Sodium (Chloride) 250 mls @ 166.667 mls/hr IVPB DAILY [facility] PRN Reason: Protocol Last Admin: 02/01/17 08:56 Dose: 166.667 mls/hr Ibuprofen (Motrin Tab) 600 mg PO Q6 PRN PRN Reason: Pain, moderate (4-7) Losartan Potassium (Cozaar) 50 mg PO DAILY [facility] Last Admin: 02/01/17 08:52 Dose: Not Given Metoprolol Tartrate (Lopressor) 50 mg PO BID [facility] Last Admin: 02/01/17 08:54 Dose: Not Given Sertraline HCl (Zoloft) 50 mg PO HS [facility] Last Admin: 01/31/17 22:08 Dose: 50 mg Sevelamer HCl (Renagel) 3,200 mg PO TID [facility] Last Admin: 02/01/17 08:55 Dose: 3,200 mg - Labs Labs: 02/01/17 05:25 02/01/17 05:25 - Constitutional Appears: No Acute Distress - ENT Exam ENT Exam: Mucous Membranes Moist - Neck Exam Neck Exam: absent: Lymphadenopathy - Respiratory Exam Respiratory Exam: NORMAL BREATHING PATTERN. absent: Chest Wall Tenderness - Cardiovascular Exam Cardiovascular Exam: Irregular Rhythm. absent: Diastolic murmur, Rubs - GI/Abdominal Exam GI & Abdominal Exam: Soft, Normal Bowel Sounds - Extremities Exam Extremities Exam: absent: Calf Tenderness - Back Exam Back Exam: absent: CVA tenderness (L), CVA tenderness (R) - Neurological Exam Neurological Exam: Alert - Psychiatric Exam Psychiatric exam: Normal Affect - Skin Skin Exam: absent: Cyanosis Assessment and Plan (1) CKD (chronic kidney disease) requiring chronic dialysis Assessment & Plan: Chronic end stage renal disease receiving dialysis DT is is on dialysis now. I did discuss the order with the dinkey skinner Ultrafiltration 3000 mL Sodium bath 138 Bicarbonate bath 34 Potassium bath 3 mEq Patient receiving antibiotics for osteomyelitis of the finger however I noted is on vancomycin 1 g every day we need to do vancomycin level as soon as possible I believe may be high dose. Hyperphosphatemia receiving binders Secondary hyperparathyroidism. Chronic atrial fibrillation. Diabetes mellitus. Receiving his medication Anemia patient receiving EPO Patient has complicated past medical history PMSH: Anemia, Anxiety, Arthritis, Atrial Fibrillation, CAD, Cardia Arrhythmia, CHF, Colonic Polyps (2012), Depression, Diabetes, Fractures (Right foot surgery) , HTN, Hypercholesterolemia, Hyperlipidemia, Pneumonia, End Stage Renal Disease (with dialysis), Chronic Kidney Disease, Sleep Apnea, TIA (2010) Status: Acute (2) Osteomyelitis Status: Acute
--- NOTE | 2017-02-02 01:46 | PN ---
DATE: 02/01/2017 SUBJECTIVE: Patient is seen today, 02/01/2017. He still has pain and swelling of the left thumb. Patient has been on IV antibiotics, day number 3. PHYSICAL EXAMINATION: VITAL SIGNS: Blood pressure is 157/93, temperature 98.1, respiratory rate 17, and pulse 84. HEENT: Slightly pale mucosa of the conjunctivae. NECK: Supple. No JVD. No carotid bruit. No lymph node. No thyromegaly. CHEST AND LUNGS: Bilateral symmetrical expansion. Good air exchange. No rales. No rhonchi. CARDIOVASCULAR SYSTEM: PMI not localized. S1, S2. No additional sounds. ABDOMEN: Normoactive bowel sounds. No tenderness. No organomegaly. No masses. EXTREMITIES: No cyanosis. No clubbing. There is swelling and tenderness of the left thumb with deformity of both hands and amputation of the fourth left phalangeal bone. CENTRAL NERVOUS SYSTEM: Alert, awake, oriented x2. Moves all extremities equally. ASSESSMENT: Cellulitis of the left hand with possible osteomyelitis. PLAN: Patient was started on IV anti biotics and he had an ID consult requested. Patient was for hemodialysis today. Continue Accu-Cheks with insulin coverage as needed. Alverto Brower MD
[2017-02-02] MEDS: Enoxaparin 30 mg Syringe SC SCH (08:50)
--- NOTE | 2017-02-02 11:08 | CP.PCM.CON ---
History of Present Illness - History of Present Illness History of Present Illness: hand consultation Dr. Gutierrez 61M complains of left thumb pain x approx 2 weeks. He says he has had similar infections in his fingers before, but none on his left thumb in the past. He says he banged it and it started bleeding, and that is why it is wrapped, but prior to this it was dry. He says the tip was harder but some white stuff came out a few days ago. He says it feels better but it is still painful. Denies pain in other fingers at this time. He has had rior surgery to other fingers for same. Review of Systems - Review of Systems All systems: reviewed and no additional remarkable complaints except - Constitutional Constitutional: Fever, Night Sweats - Musculoskeletal Musculoskeletal: As Per HPI - Integumentary Integumentary: Wounds - Neurological Additional comments: chronic tingling in fingers - Hematologic/Lymphatic Hematologic: absent: As Per HPI, Easy Bleeding, Easy Bruising, Lymphadenopathy, Other Past Patient History - Infectious Disease Hx of Infectious Diseases: None - Past Medical History & Family History Past Medical History?: Yes Past Family History: Reviewed and not pertinent - Past Social History Smoking Status: Never Smoked Home Situation {Lives}: With Family - CARDIAC Hx Atrial Fibrillation: Yes Hx Cardia Arrhythmia: Yes Hx Congestive Heart Failure: Yes Hx Hypercholesterolemia: Yes Hx Hypertension: Yes - PULMONARY Hx Chronic Obstructive Pulmonary Disease (COPD): No Hx Pneumonia: Yes Hx Sleep Apnea: Yes - NEUROLOGICAL Hx Transient Ischemic Attacks (TIA): Yes (2010) - HEENT Other/Comment: HX: RETINOPATHY 5 YEARS AGO - RENAL Hx Chronic Kidney Disease: Yes - ENDOCRINE/METABOLIC Hx Hypothyroidism: No - HEMATOLOGICAL/ONCOLOGICAL Hx Anemia: Yes - INTEGUMENTARY Other/Comment: ULCER BACK RIGHT THIGH - MUSCULOSKELETAL/RHEUMATOLOGICAL Hx Arthritis: Yes Hx Fractures: Yes (Right foot surgery) Hx Rheumatoid Arthritis: No - GASTROINTESTINAL Hx Gastrointestinal Disorders: Yes Hx Gastroesophageal Reflux: Yes Other/Comment: CONSTIPATION. ELEVATED LFTS. HEPATIC CIRRHOISIS - GENITOURINARY/GYNECOLOGICAL Hx Genitourinary Disorders: Yes Hx Prostate Problems: Yes (ENLARGED PROSTATE) Hx Urinary Tract Infection: Yes Other/Comment: PENILE CIRCUMCISION DUE TO INFECTION AUGUST 27 2016 - PSYCHIATRIC Hx Anxiety: Yes Hx Depression: Yes - SURGICAL HISTORY Hx Amputation: Yes (AMPUTATION OF LEFT HAND 1ST AND 4TH DIGIT) Hx Cardiac Catheterization: Yes Hx Eye Surgery: Yes (RETINOPATHY ) Hx Musculoskeletal Surgery: Yes (LUMBAR SPINE SX 2002) Hx Orthopedic Surgery: Yes (RUBI BREAK RIGHT FOOT 2012 SCREW AND METAL PLATES PLACED) Hx Vascular Surgery: Yes (AV FISTULA RIGHT FORE ARM) Other/Comment: PENILE CIRCUMCISION 08/27/16. LEFT HAND 1ST AND FOURTH DIGIT AMPUTATION 2016 - ANESTHESIA Hx Anesthesia: Yes Hx Anesthesia Reactions: Yes (PROPOFOL (CARDIAC ARREST)) Hx Malignant Hyperthermia: No Meds Allergies/Adverse Reactions: Allergies Allergy/AdvReac Type Severity Reaction Status Date / Time ciprofloxacin Allergy SWELLING Verified 01/29/17 20:53 Penicillins Allergy ANAPHYLAXIS Verified 01/14/16 16:53 propofol Allergy ANAPHYLAXIS Verified 01/14/16 16:53 vitamin K2 Allergy SHORTNESS Verified 01/14/16 16:53 OF BREATH diphenhydramine HCl AdvReac ITCHING Verified 01/14/16 16:53 [From Benadryl] - Medications Medications: Current Medications Acetaminophen (Tylenol 325mg Tab) 650 mg PO Q4 PRN PRN Reason: Fever >100.4 F Last Admin: 01/31/17 18:21 Dose: 650 mg Alprazolam (Xanax) 0.25 mg PO HS [facility] Last Admin: 02/01/17 21:58 Dose: 0.25 mg Aspirin (Ecotrin) 81 mg PO DAILY [facility] Last Admin: 02/02/17 08:49 Dose: 81 mg Atorvastatin Calcium (Lipitor) 20 mg PO HS [facility] Last Admin: 02/01/17 21:58 Dose: 20 mg Calcitriol (Rocaltrol) 0.25 mcg PO DAILY [facility] Last Admin: 02/02/17 08:51 Dose: 0.25 mcg Clonidine HCl (Catapres) 0.1 mg PO TID [facility] Last Admin: 02/02/17 08:47 Dose: 0.1 mg Clopidogrel Bisulfate (Plavix) 75 mg PO DAILY [facility] Last Admin: 02/02/17 08:50 Dose: 75 mg Enoxaparin Sodium (Lovenox) 30 mg SC DAILY [facility] PRN Reason: Protocol Last Admin: 02/02/17 08:50 Dose: 30 mg Glipizide (Glucotrol) 10 mg PO BID [facility] Last Admin: 02/02/17 08:49 Dose: 10 mg Vancomycin HCl 1 gm/ Sodium (Chloride) 250 mls @ 125 mls/hr IVPB TTS [facility] PRN Reason: Protocol Ibuprofen (Motrin Tab) 600 mg PO Q6 PRN PRN Reason: Pain, moderate (4-7) Losartan Potassium (Cozaar) 50 mg PO DAILY [facility] Last Admin: 02/02/17 08:48 Dose: 50 mg Metoprolol Tartrate (Lopressor) 50 mg PO BID [facility] Last Admin: 02/02/17 08:49 Dose: 50 mg Sertraline HCl (Zoloft) 50 mg PO HS [facility] Last Admin: 02/01/17 21:58 Dose: 50 mg Sevelamer HCl (Renagel) 3,200 mg PO TID [facility] Last Admin: 02/02/17 08:50 Dose: 3,200 mg Physical Exam - Constitutional Appears: Non-toxic - Head Exam Head Exam: ATRAUMATIC - Expanded Upper Extremities Exam Left Neuro motor exam: finger 2-5 abduction intact, thumb abduction, thumb IP flexion intact (no pain with active or passive flexion at IP joint left thumb), thumb opposition intact, wrist extension intact Neurosensory exam: median nerve intact, radial nerve intact Vascular exam: radial pulse (finger swollen, noted tenderness to tip, no obvious abscess) - Neurological Exam Neurological exam: Alert, Oriented x3 - Psychiatric Exam Psychiatric exam: Normal Affect, Normal Mood - Skin Skin Exam: Warm Additional comments: bleeding from dorsal finger at nailbed no obvious pus Results - Vital Signs Recent Vital Signs: Last Vital Signs Temp 99.5 F 02/02/17 07:48 Pulse 98 H 02/02/17 08:49 Resp 20 02/02/17 07:48 BP 132/71 02/02/17 08:49 Pulse Ox 99 02/02/17 07:48 - Labs Result Diagrams: 02/01/17 05:25 02/01/17 05:25 Labs: Laboratory Results - last 24 hr 02/01/17 02/01/17 02/01/17 15:35 18:00 21:05 POC Glucose (mg/dL) 139 H 198 H Hep B Core IgM Ab Negative 02/02/17 02/02/17 05:19 10:29 POC Glucose (mg/dL) 231 H 198 H Hep B Core IgM Ab Assessment & Plan (1) Cellulitis of left thumb Assessment and Plan: ID consult appreciated cont abx per ID d/w Dr. Gutierrez, MRI ordered warm soapy soaks d/w Dr. Gutierrez, agrees with above Status: Acute (2) Osteomyelitis of left hand Status: Acute
--- NOTE | 2017-02-02 11:15 | PQF GENQUE ---
Dr. Rodriguez, Please clarify the type of anemia: if known: i.e. Blood loss anemia, acute Blood loss anemia, chronic Chronic anemia Deficiency anemia (please specify type) Due to/in/with antineoplastic chemotherapy Due to/in/with chronic kidney disease Due to/in/with kidney failure Due to/in/with neoplastic disease Iron deficiency anemia Macrocytic anemia Microcytic anemia Normocytic anemia Postoperative blood loss anemia Pernicious anemia Other anemia (please specify) Clinically unable to determine Unknown Renal consult: diagnoses include: Anemia:monitor for any epo needs H/H: 11.0/3.9->9.6/30.0 This form is a permanent part of the medical record Clarification of your documentation is requested to better reflect the severity of illness and intensity of treatment of your patient. Indicators present [] Specify: [] [] Specify: [] [] Specify: [] [] Specify: [] Location in the medical record that reflects the above clinical findings: [] Treatment Provided: [] PHYSICIAN'S RESPONSE Based on your medical judgment of the clinical indicators outlined above please clarify the following: [] Practitioner response [] If unable to determine, please check the box, sign and date. Present On Admission (POA) Indicator: [] Present at the time of admission in my progress notes anemia of ckd and infection [] Not present at the time of admission [] Clinically Undetermined In responding to this query, please exercise your independent professional judgment. The fact that a question is asked does not imply that any particular answer is desired or expected. Thank you for your clarification on this documentation. If you have any questions please call. * Thank you, Madison Bernabe RN ext. #[phone] MTDD
--- NOTE | 2017-02-02 11:40 | PQF GENQUE ---
Dr. Brower, 2 part (two) query as follows: Please specify type, and status, of DM : 1.Please specify type: Type 1 Type 2 Due to an underlying condition/secondary (please specify condition) Due to drugs or chemical (please specify associated drug or chemical) Other (please specify) Clinically unable to determine Unknown 2. Please specify status: i.e. With hyperglycemia (poorly controlled, out of control, etc.) With hyperosmolarity ([facility]) With hypoglycemia With ketoacidosis Other (please specify) Clinically unable to determine Unknown Random glucose:145->155->154 --glucotrol This form is a permanent part of the medical record Clarification of your documentation is requested to better reflect the severity of illness and intensity of treatment of your patient. Indicators present [] Specify: [] [] Specify: [] [] Specify: [] [] Specify: [] Location in the medical record that reflects the above clinical findings: [] Treatment Provided: [] PHYSICIAN'S RESPONSE Based on your medical judgment of the clinical indicators outlined above please clarify the following: [] Practitioner response [] If unable to determine, please check the box, sign and date. Present On Admission (POA) Indicator: [] Present at the time of admission [] Not present at the time of admission [] Clinically Undetermined In responding to this query, please exercise your independent professional judgment. The fact that a question is asked does not imply that any particular answer is desired or expected. Thank you for your clarification on this documentation. If you have any questions please call. * Thank you, Madison Bernabe RN ext. #[phone] type 2 DM MTDD
--- NOTE | 2017-02-02 15:12 | CP.PCM.PN ---
Subjective - Date & Time of Evaluation Date of Evaluation: 02/02/17 Time of Evaluation: 15:11 - Subjective Subjective: dictated Objective - Vital Signs/Intake and Output Vital Signs (last 24 hours): Temp Pulse Resp BP Pulse Ox 99.5 F 98 H 20 132/71 99 02/02/17 07:48 02/02/17 08:49 02/02/17 07:48 02/02/17 08:49 02/02/17 07:48 - Medications Medications: Current Medications Acetaminophen (Tylenol 325mg Tab) 650 mg PO Q4 PRN PRN Reason: Fever >100.4 F Last Admin: 01/31/17 18:21 Dose: 650 mg Alprazolam (Xanax) 0.25 mg PO HS [facility] Last Admin: 02/01/17 21:58 Dose: 0.25 mg Aspirin (Ecotrin) 81 mg PO DAILY [facility] Last Admin: 02/02/17 08:49 Dose: 81 mg Atorvastatin Calcium (Lipitor) 20 mg PO HS [facility] Last Admin: 02/01/17 21:58 Dose: 20 mg Calcitriol (Rocaltrol) 0.25 mcg PO DAILY [facility] Last Admin: 02/02/17 08:51 Dose: 0.25 mcg Clonidine HCl (Catapres) 0.1 mg PO TID [facility] Last Admin: 02/02/17 08:47 Dose: 0.1 mg Clopidogrel Bisulfate (Plavix) 75 mg PO DAILY [facility] Last Admin: 02/02/17 08:50 Dose: 75 mg Enoxaparin Sodium (Lovenox) 30 mg SC DAILY [facility] PRN Reason: Protocol Last Admin: 02/02/17 08:50 Dose: 30 mg Epoetin Alexy (Procrit) 8,000 unit IV TTS ONE Stop: 02/03/17 15:07 Glipizide (Glucotrol) 10 mg PO BID [facility] Last Admin: 02/02/17 08:49 Dose: 10 mg Vancomycin HCl 1 gm/ Sodium (Chloride) 250 mls @ 125 mls/hr IVPB TTS [facility] PRN Reason: Protocol Ibuprofen (Motrin Tab) 600 mg PO Q6 PRN PRN Reason: Pain, moderate (4-7) Losartan Potassium (Cozaar) 50 mg PO DAILY [facility] Last Admin: 02/02/17 08:48 Dose: 50 mg Metoprolol Tartrate (Lopressor) 50 mg PO BID [facility] Last Admin: 02/02/17 08:49 Dose: 50 mg Sertraline HCl (Zoloft) 50 mg PO HS [facility] Last Admin: 02/01/17 21:58 Dose: 50 mg Sevelamer HCl (Renagel) 3,200 mg PO TID [facility] Last Admin: 02/02/17 08:50 Dose: 3,200 mg - Labs Labs: 02/01/17 05:25 02/01/17 05:25 Assessment and Plan (1) CKD (chronic kidney disease) requiring chronic dialysis Status: Acute (2) Osteomyelitis Status: Acute
--- NOTE | 2017-02-02 17:28 | MRI ---
PROCEDURE: LEFT THUMB MRI WITHOUT CONTRAST HISTORY: ATTN: left thumb dX: infection, r/o osteo/abscess COMPARISON: Left thumb radiographs 01/29/2017. No prior MRI available for comparison. TECHNIQUE: Multiplanar multisequential mr imaging of the left thumb was performed without intravenous gadolinium as requested. FINDINGS: There is relatively extensive soft tissue edema identified involving the left thumb soft tissues diffusely but also extending into the thenar eminence and lateral hand and wrist soft tissues hepatic compatible with cellulitis. No definitive abscess identified. The flexor pollicis tendon complex to the thumb is inflamed and thickened suggestive of infectious tendinitis as well or tear. Clinically correlate as the former is favored. The extensor tendon complex appears unremarkable. There is extensive edema affecting the distal phalanx of the thumb diffusely with erosion of the cortex not excluded in the numerous mid and distal as well as proximal segments. Intermediate fat-suppressed proton density signal intensity in the proximal phalanx may be artifactual as no corresponding diminished T1 signal is seen and this may not indicate osteomyelitis of the proximal phalanx. IMPRESSION: Findings compatible with marked osteomyelitis affecting the distal phalanx of left thumb a likely not the proximal phalanx or the 1st metacarpal bone either. Extensive cellulitis affects the soft tissue surrounding the entire thumb and extends into the radial hand soft tissues including the thenar eminence without definitive abscess appreciable. Infectious tendinitis is favored over longitudinal tear of the flexor pollicis tendon complex. Further clinical correlation is recommended.
--- NOTE | 2017-02-03 07:10 | CP.PCM.PN ---
Subjective - Date & Time of Evaluation Date of Evaluation: 02/03/17 Time of Evaluation: 08:58 - Subjective Subjective: Patient still complaining of pain in his left thumb, improving. No drainage overnight. He says prior to this infection, he was able to bend his thumb normally. He states that his main goal is to be able to hold walker between thumb and index finger in the "V" and that any other motion of his thumb is not priority. Review of Systems - Review of Systems All systems: reviewed and no additional remarkable complaints except - Constitutional Constitutional: Fever - Cardiovascular Cardiovascular: UNREMARKABLE - Respiratory Respiratory: UNREMARKABLE - Gastrointestinal Gastrointestinal: UNREMARKABLE - Musculoskeletal Musculoskeletal: As Par HPI - Integumentary Integumentary: As Per HPI - Neurological Neurological: As Per HPI - Hematologic/Lymphatic Hematologic: UNREMARKABLE Objective - Vital Signs/Intake and Output Vital Signs (last 24 hours): Temp Pulse Resp BP Pulse Ox 98.5 F 83 18 154/91 H 98 02/03/17 00:04 02/03/17 00:04 02/03/17 00:04 02/03/17 00:04 02/03/17 00:04 - Medications Medications: Current Medications Acetaminophen (Tylenol 325mg Tab) 650 mg PO Q4 PRN PRN Reason: Fever >100.4 F Last Admin: 01/31/17 18:21 Dose: 650 mg Alprazolam (Xanax) 0.25 mg PO HS [facility] Last Admin: 02/02/17 21:25 Dose: 0.25 mg Aspirin (Ecotrin) 81 mg PO DAILY [facility] Last Admin: 02/02/17 08:49 Dose: 81 mg Atorvastatin Calcium (Lipitor) 20 mg PO HS [facility] Last Admin: 02/02/17 21:25 Dose: 20 mg Calcitriol (Rocaltrol) 0.25 mcg PO DAILY [facility] Last Admin: 02/02/17 08:51 Dose: 0.25 mcg Clonidine HCl (Catapres) 0.1 mg PO TID [facility] Last Admin: 02/02/17 17:07 Dose: 0.1 mg Clopidogrel Bisulfate (Plavix) 75 mg PO DAILY [facility] Last Admin: 02/02/17 08:50 Dose: 75 mg Enoxaparin Sodium (Lovenox) 30 mg SC DAILY [facility] PRN Reason: Protocol Last Admin: 02/02/17 08:50 Dose: 30 mg Epoetin Alexy (Procrit) 8,000 unit IV TTS ONE Stop: 02/03/17 15:07 Glipizide (Glucotrol) 10 mg PO BID [facility] Last Admin: 02/02/17 17:08 Dose: 10 mg Vancomycin HCl 1 gm/ Sodium (Chloride) 250 mls @ 125 mls/hr IVPB TTS [facility] PRN Reason: Protocol Ibuprofen (Motrin Tab) 600 mg PO Q6 PRN PRN Reason: Pain, moderate (4-7) Losartan Potassium (Cozaar) 50 mg PO DAILY [facility] Last Admin: 02/02/17 08:48 Dose: 50 mg Metoprolol Tartrate (Lopressor) 50 mg PO BID [facility] Last Admin: 02/02/17 17:08 Dose: 50 mg Sertraline HCl (Zoloft) 50 mg PO HS [facility] Last Admin: 02/02/17 21:25 Dose: 50 mg Sevelamer HCl (Renagel) 3,200 mg PO TID [facility] Last Admin: 02/02/17 17:09 Dose: 3,200 mg - Labs Labs: 02/01/17 05:25 02/01/17 05:25 - Constitutional Appears: No Acute Distress - Respiratory Exam Respiratory Exam: NORMAL BREATHING PATTERN - Extremities Exam Additional comments: thumb dry, no drainage today. thumb swelling unchanged. Noted active extension, no flexion of finger at IP joint actively. No tenderness along flexor sheath proximal to IP joint. No pain with passive extension of finger. +cap refill, decreased sensation unchanged (pt with chronic neuropathy) - Neurological Exam Neurological Exam: Alert, Awake, Oriented x3 - Psychiatric Exam Psychiatric exam: Normal Affect, Normal Mood - Skin Skin Exam: Dry, Intact, Warm Assessment and Plan (1) Cellulitis of left thumb Assessment & Plan: cellulitis improving no abscess per MRI MRI findings d/w Dr. Gutierrez, asked if patient is amenable to amputation, and discussed patient goals and wishes to maintain ability to hold walker for ambulation plan for partial left thumb amputation on Thursday 02/[address] Gutierrez Status: Acute (2) Osteomyelitis of left hand Assessment & Plan: confirmed on MRI continue IV antibiotics per ID Status: Acute Radiology Interpretation - Radiology Interpretation #2 Interpretation: Patient Name / ID : AYANA MOBLEY / [id number] Exam Date : 02/02/2017 13:26:01 ( Approved ) Study Comment : Sex / Age : M / [id number] Creator : Nixon Clemons MD Dictator : Nixon Clemons MD Optical Effects Camera Operator : Tree Trimming Supervisor : Nixon Clemons MD Approver2 : Report Date : 02/02/2017 17:27:03 My Comment : PROCEDURE: LEFT THUMB MRI WITHOUT CONTRAST HISTORY: ATTN: left thumb dX: infection, r/o osteo/abscess COMPARISON: Left thumb radiographs 01/29/2017. No prior MRI available for comparison. TECHNIQUE: Multiplanar multisequential mr imaging of the left thumb was performed without intravenous gadolinium as requested. FINDINGS: There is relatively extensive soft tissue edema identified involving the left thumb soft tissues diffusely but also extending into the thenar eminence and lateral hand and wrist soft tissues hepatic compatible with cellulitis. No definitive abscess identified. The flexor pollicis tendon complex to the thumb is inflamed and thickened suggestive of infectious tendinitis as well or tear. Clinically correlate as the former is favored. The extensor tendon complex appears unremarkable. There is extensive edema affecting the distal phalanx of the thumb diffusely with erosion of the cortex not excluded in the numerous mid and distal as well as proximal segments. Intermediate fat-suppressed proton density signal intensity in the proximal phalanx may be artifactual as no corresponding diminished T1 signal is seen and this may not indicate osteomyelitis of the proximal phalanx. IMPRESSION: Findings compatible with marked osteomyelitis affecting the distal phalanx of left thumb a likely not the proximal phalanx or the 1st metacarpal bone either. Extensive cellulitis affects the soft tissue surrounding the entire thumb and extends into the radial hand soft tissues including the thenar eminence without definitive abscess appreciable. Infectious tendinitis is favored over longitudinal tear of the flexor pollicis tendon complex. Further clinical correlation is recommended.
--- NOTE | 2017-02-03 08:53 | PN ---
DATE: SUBJECTIVE: Alcon Lubin is 61 years of age, admitted because of the osteomyelitis of the finger. The patient is sitting up in bed, feeling much better. No nausea. No vomiting. Appetite is okay. He completed hemodialysis yesterday. PHYSICAL EXAMINATION: VITAL SIGNS: Noted with blood pressure 132/71, pulse 98, temperature 99.5. NECK: Supple. CHEST: Few rhonchi. HEART: No rebus. Irregular. ABDOMEN: Soft. EXTREMITIES: No edema at the present. His left hand already covered with dressing where he has osteomyelitis on the finger. IMPRESSION AND PLAN: 1. The patient was admitted with osteomyelitis, receiving antibiotics for the left finger. 2. End-stage renal disease, dialysis Tuesday, , Tuesday. 3. Anemia, probably combination of chronic kidney disease in addition to infection with osteomyelitis. The patient to be started on EPO 8000 units with each hemodialysis. 4. Hyperphosphatemia and secondary hyperparathyroidism. We will check PTH. Andrew Rodriguez MD
[2017-02-03] MEDS: Enoxaparin 30 mg Syringe SC SCH (09:24)
--- NOTE | 2017-02-03 10:51 | CP.PCM.PN ---
Subjective - Date & Time of Evaluation Date of Evaluation: 02/03/17 Time of Evaluation: 10:51 - Subjective Subjective: dictated Objective - Vital Signs/Intake and Output Vital Signs (last 24 hours): Temp Pulse Resp BP Pulse Ox 97.9 F 82 20 138/80 98 02/03/17 07:47 02/03/17 07:47 02/03/17 07:47 02/03/17 07:47 02/03/17 07:47 - Medications Medications: Current Medications Acetaminophen (Tylenol 325mg Tab) 650 mg PO Q4 PRN PRN Reason: Fever >100.4 F Last Admin: 01/31/17 18:21 Dose: 650 mg Alprazolam (Xanax) 0.25 mg PO HS [facility] Last Admin: 02/02/17 21:25 Dose: 0.25 mg Aspirin (Ecotrin) 81 mg PO DAILY [facility] Last Admin: 02/03/17 09:41 Dose: 81 mg Atorvastatin Calcium (Lipitor) 20 mg PO HS [facility] Last Admin: 02/02/17 21:25 Dose: 20 mg Calcitriol (Rocaltrol) 0.25 mcg PO DAILY [facility] Last Admin: 02/03/17 09:38 Dose: 0.25 mcg Clonidine HCl (Catapres) 0.1 mg PO TID [facility] Last Admin: 02/02/17 17:07 Dose: 0.1 mg Clopidogrel Bisulfate (Plavix) 75 mg PO DAILY [facility] Last Admin: 02/03/17 09:44 Dose: 75 mg Enoxaparin Sodium (Lovenox) 30 mg SC DAILY [facility] PRN Reason: Protocol Last Admin: 02/03/17 09:24 Dose: 30 mg Epoetin Alexy (Procrit) 8,000 unit IV TTS ONE Stop: 02/03/17 15:07 Glipizide (Glucotrol) 10 mg PO BID [facility] Last Admin: 02/03/17 09:42 Dose: 10 mg Vancomycin HCl 1 gm/ Sodium (Chloride) 250 mls @ 125 mls/hr IVPB TTS [facility] PRN Reason: Protocol Ibuprofen (Motrin Tab) 600 mg PO Q6 PRN PRN Reason: Pain, moderate (4-7) Losartan Potassium (Cozaar) 50 mg PO DAILY [facility] Last Admin: 02/02/17 08:48 Dose: 50 mg Metoprolol Tartrate (Lopressor) 50 mg PO BID [facility] Last Admin: 02/02/17 17:08 Dose: 50 mg Sertraline HCl (Zoloft) 50 mg PO HS [facility] Last Admin: 02/02/17 21:25 Dose: 50 mg Sevelamer HCl (Renagel) 3,200 mg PO TID [facility] Last Admin: 02/03/17 09:39 Dose: 3,200 mg - Labs Labs: 02/01/17 05:25 02/01/17 05:25 Assessment and Plan (1) CKD (chronic kidney disease) requiring chronic dialysis Status: Acute (2) Osteomyelitis Status: Acute
[2017-02-03] MEDS ORDERED: Epoetin Alfa 4000 UNIT/ML Inj IV ONE (15:06)
[2017-02-03 23:56] LABS: HEPATITIS B SURFACE AG NEGATIVE (NEGATIVE)
[2017-02-04 00:14] LABS: HEPATITIS C ANTIBODY Negative (NEGATIVE)
[2017-02-04] MEDS: Enoxaparin 30 mg Syringe SC SCH (09:23)
--- NOTE | 2017-02-04 10:46 | PN ---
DATE: SUBJECTIVE: Patient is sitting up, feeling much better. No significant shortness of breath reported. Patient complains of less pain of the left hand. Appetite is okay. No nausea or vomiting. PHYSICAL EXAMINATION: VITAL SIGNS: Normal with blood pressure 138/90, temperature normal, pulse 82. CHEST: Clear. HEART: No rubs, although irregular. Patient has history of chronic AFib. ABDOMEN: Soft. EXTREMITIES: No significant edema, only trace. On the left hand, the thumb where is the osteomyelitis at the tip of the thumb because he keeps biting with his habit, the tip of the finger. Also on the left hand, he has lost the pinky, which was amputated previously because of the similar episode with osteomyelitis and also the middle finger, the tip of it has also some deformity because of the chronic bite of his finger. IMPRESSION AND PLAN: Patient admitted with osteomyelitis of the left thumb of the tip of the finger. Patient being treated for osteomyelitis. End-stage renal disease, patient is scheduled to have dialysis this afternoon. I discussed the order with the dialysis nurse and it is put in place. Patient also has anemia, which is related to his chronic kidney disease and infection related to osteomyelitis. So, it is combine of multiple etiologies for his anemia. Also, patient is diabetic, he is taking his medication and the patient continues to do much better with a history of chronic atrial fibrillation. Andrew Rodriguez MD
--- NOTE | 2017-02-04 11:02 | CP.PCM.PN ---
Subjective - Date & Time of Evaluation Date of Evaluation: 02/04/17 Time of Evaluation: 11:01 - Subjective Subjective: dictated Objective - Vital Signs/Intake and Output Vital Signs (last 24 hours): Temp Pulse Resp BP Pulse Ox 98.8 F 90 20 145/88 97 02/04/17 07:37 02/04/17 09:27 02/04/17 07:37 02/04/17 09:27 02/04/17 07:37 - Medications Medications: Current Medications Acetaminophen (Tylenol 325mg Tab) 650 mg PO Q4 PRN PRN Reason: Fever >100.4 F Last Admin: 01/31/17 18:21 Dose: 650 mg Alprazolam (Xanax) 0.25 mg PO HS [facility] Last Admin: 02/03/17 22:01 Dose: 0.25 mg Aspirin (Ecotrin) 81 mg PO DAILY [facility] Last Admin: 02/04/17 09:27 Dose: 81 mg Atorvastatin Calcium (Lipitor) 20 mg PO HS [facility] Last Admin: 02/03/17 22:02 Dose: 20 mg Calcitriol (Rocaltrol) 0.25 mcg PO DAILY [facility] Last Admin: 02/04/17 09:26 Dose: 0.25 mcg Clonidine HCl (Catapres) 0.1 mg PO TID [facility] Last Admin: 02/04/17 09:24 Dose: 0.1 mg Clopidogrel Bisulfate (Plavix) 75 mg PO DAILY [facility] Last Admin: 02/04/17 09:27 Dose: 75 mg Enoxaparin Sodium (Lovenox) 30 mg SC DAILY [facility] PRN Reason: Protocol Last Admin: 02/04/17 09:23 Dose: 30 mg Glipizide (Glucotrol) 10 mg PO BID [facility] Last Admin: 02/04/17 09:24 Dose: 10 mg Vancomycin HCl 1 gm/ Sodium (Chloride) 250 mls @ 125 mls/hr IVPB TTS [facility] PRN Reason: Protocol Last Admin: 02/03/17 16:32 Dose: 125 mls/hr Aztreonam 500 mg/ Sodium (Chloride) 50 mls @ 50 mls/hr IVPB Q12@0400,1600 [facility] PRN Reason: Protocol Last Admin: 02/04/17 03:23 Dose: 50 mls/hr Ibuprofen (Motrin Tab) 600 mg PO Q6 PRN PRN Reason: Pain, moderate (4-7) Losartan Potassium (Cozaar) 50 mg PO DAILY [facility] Last Admin: 02/04/17 09:26 Dose: 50 mg Metoprolol Tartrate (Lopressor) 50 mg PO BID [facility] Last Admin: 02/04/17 09:27 Dose: 50 mg Sertraline HCl (Zoloft) 50 mg PO HS [facility] Last Admin: 02/03/17 22:02 Dose: 50 mg Sevelamer HCl (Renagel) 3,200 mg PO TID [facility] Last Admin: 02/04/17 09:26 Dose: 3,200 mg - Labs Labs: 02/01/17 05:25 02/01/17 05:25 Assessment and Plan (1) CKD (chronic kidney disease) requiring chronic dialysis Status: Acute (2) Osteomyelitis Status: Acute
--- NOTE | 2017-02-04 11:21 | RAD ---
HISTORY: Admission, Pre-op COMPARISON: Comparison chest dated 08/11/2016. FINDINGS: LUNGS: Poor inspiration with low lung volumes, crowded bronchovascular markings and mild bibasilar atelectasis and or scarring left greater than right. PLEURA: No significant pleural effusion identified, no pneumothorax apparent. CARDIOVASCULAR: Heart remains enlarged. OSSEOUS STRUCTURES: No significant abnormalities. VISUALIZED UPPER ABDOMEN: Normal. OTHER FINDINGS: None. IMPRESSION: Poor inspiration with low lung volumes, crowded bronchovascular markings and mild bibasilar atelectasis and or scarring left greater than right. Cardiomegaly.
--- NOTE | 2017-02-04 12:16 | CP.PCM.PN ---
Subjective - Date & Time of Evaluation Date of Evaluation: 02/04/17 Time of Evaluation: 12:13 - Subjective Subjective: Patient states pain in thumb is the same, still has some pain in his hand also. Objective - Vital Signs/Intake and Output Vital Signs (last 24 hours): Temp Pulse Resp BP Pulse Ox 98.8 F 90 20 145/88 97 02/04/17 07:37 02/04/17 09:27 02/04/17 07:37 02/04/17 09:27 02/04/17 07:37 - Medications Medications: Current Medications Acetaminophen (Tylenol 325mg Tab) 650 mg PO Q4 PRN PRN Reason: Fever >100.4 F Last Admin: 01/31/17 18:21 Dose: 650 mg Alprazolam (Xanax) 0.25 mg PO HS [facility] Last Admin: 02/03/17 22:01 Dose: 0.25 mg Aspirin (Ecotrin) 81 mg PO DAILY [facility] Last Admin: 02/04/17 09:27 Dose: 81 mg Atorvastatin Calcium (Lipitor) 20 mg PO HS [facility] Last Admin: 02/03/17 22:02 Dose: 20 mg Calcitriol (Rocaltrol) 0.25 mcg PO DAILY [facility] Last Admin: 02/04/17 09:26 Dose: 0.25 mcg Clonidine HCl (Catapres) 0.1 mg PO TID [facility] Last Admin: 02/04/17 09:24 Dose: 0.1 mg Clopidogrel Bisulfate (Plavix) 75 mg PO DAILY [facility] Last Admin: 02/04/17 09:27 Dose: 75 mg Enoxaparin Sodium (Lovenox) 30 mg SC DAILY [facility] PRN Reason: Protocol Last Admin: 02/04/17 09:23 Dose: 30 mg Glipizide (Glucotrol) 10 mg PO BID [facility] Last Admin: 02/04/17 09:24 Dose: 10 mg Vancomycin HCl 1 gm/ Sodium (Chloride) 250 mls @ 125 mls/hr IVPB TTS [facility] PRN Reason: Protocol Last Admin: 02/03/17 16:32 Dose: 125 mls/hr Aztreonam 500 mg/ Sodium (Chloride) 50 mls @ 50 mls/hr IVPB Q12@0400,1600 [facility] PRN Reason: Protocol Last Admin: 02/04/17 03:23 Dose: 50 mls/hr Ibuprofen (Motrin Tab) 600 mg PO Q6 PRN PRN Reason: Pain, moderate (4-7) Losartan Potassium (Cozaar) 50 mg PO DAILY [facility] Last Admin: 02/04/17 09:26 Dose: 50 mg Metoprolol Tartrate (Lopressor) 50 mg PO BID [facility] Last Admin: 02/04/17 09:27 Dose: 50 mg Sertraline HCl (Zoloft) 50 mg PO HS [facility] Last Admin: 02/03/17 22:02 Dose: 50 mg Sevelamer HCl (Renagel) 3,200 mg PO TID [facility] Last Admin: 02/04/17 09:26 Dose: 3,200 mg - Labs Labs: 02/01/17 05:25 02/01/17 05:25 - Extremities Exam Additional comments: no active drainage, no change in ROM of thumb. clinically the same. Assessment and Plan (1) Cellulitis of left thumb Assessment & Plan: for OR /Tuesday for partial amputation as per Dr. Gutierrez plavix held (pt on for afib, cont lovenox, hold after tuesday dose) d/w Dr. Gutierrez agrees with above Status: Acute (2) Osteomyelitis of left hand Status: Acute
--- NOTE | 2017-02-04 12:36 | CARD ---
APPROVED REPORT EKG Measurement Heart [id number] <Conclusion> Atrial fibrillation Left anterior fascicular block Abnormal ECG
--- NOTE | 2017-02-04 15:07 | PN ---
DATE: FOLLOWUP Covering for Dr. Brower. SUBJECTIVE: The patient underwent hemodialysis yesterday. He does report fecal incontinence. He denies any chest pain. PHYSICAL EXAMINATION: VITAL SIGNS: Blood pressure 147/78, heart rate 90, temperature 98.8, respirations 20. HEENT: Pale conjunctivae. CHEST: Clear. HEART: S1 and S2 are regular. EXTREMITIES: No pedal edema. LABORATORY DATA: Hemoglobin and hematocrit 9.2 and 30.0 on 02/01/2017, platelet count at that day was 122,000. Today's blood sugars were 203 and 218. On 02/01/2017, BUN and creatinine were 67 and 7.2 respectively. Upper extremity MRI revealed osteomyelitis in the distal phalanx of the left thumb. Extensive cellulitis affecting the tissue surrounding the entire thumb and extends into the radial hands of tissue including thenar eminence. Rule out definitive abscess. EKG done today revealed atrial fibrillation at a rate of 80, left bundle-branch block. ASSESSMENT: 1. Right thumb distal phalanx osteomyelitis with adjacent cellulitis. 2. Chronic atrial fibrillation. 3. End-stage renal disease, on hemodialysis. 4. Anemia. PLAN: Continue current Azactam at 500 mg q. 12 hours, clonidine at 0.4 mg t.i.d., Cozaar 50 mg once a day, aspirin 81 mg once a day, glipizide 10 mg twice a day, Lipitor 20 mg once a day, Lopressor 50 mg twice a day, Lovenox 30 mg once a day, Plavix 75 mg once a day, Renagel 3200 mg t.i.d., vancomycin 1 g with each hemodialysis and Xanax 0.25 mg at bedtime. Rylan Sauceda MD
[2017-02-05 07:25] LABS: ALB/GLOB RATIO 0.8 (1.0-2.1); ALBUMIN 3.6 g/dL (3.5-5.0); CALCIUM 9.5 mg/dL (8.4-10.2)
[2017-02-05 07:58] LABS: INR 1.3 (0.9-1.2); PARTIAL THROMBOPLASTIN TIME 37.7 Seconds (25.6-37.1); PROTHROMBIN TIME 14.3 Seconds (9.8-13.1)
[2017-02-05 08:07] LABS: BASO # 0.1 K/uL (0.0-0.2); EOS # 0.3 K/uL (0.0-0.7); EOS % 5.2 % (0.0-4.0); HEMOGLOBIN 10.2 g/dL (12.0-18.0); LYMPH # 0.8 K/uL (1.0-4.3); LYMPH % 14.4 % (20.0-40.0); MEAN CELL VOLUME 96.4 fl (80.0-94.0); MEAN CORPUSCULAR HEMOGLOBIN 31.9 pg (27.0-31.0); MEAN CORPUSCULAR HGB CONC 33.1 g/dL (33.0-37.0); MEAN PLATELET VOLUME 8.5 fl (7.2-11.7); MONO # 0.8 K/uL (0.0-0.8); MONO % 13.3 % (0.0-10.0); NEUT # 3.7 K/uL (1.8-7.0); NEUT % 66.1 % (50.0-75.0); NRBC % 0.1 % (0.0-0.0); RBC 3.2 Mil/uL (4.40-5.90); RED CELL DISTRIBUTION WIDTH 14.7 % (11.5-14.5); WHITE BLOOD COUNT 5.7 K/uL (4.8-10.8)
[2017-02-05] MEDS: Enoxaparin 30 mg Syringe SC SCH (10:15)
--- NOTE | 2017-02-05 13:58 | PN ---
DATE: SUBJECTIVE: The patient denies any chest pain. No further diarrhea or fecal incontinence. No dizziness or palpitation. PHYSICAL EXAMINATION: VITAL SIGNS: Blood pressure 138/65, heart rate 78, temperature 97.9, and respirations 18. HEENT: Normocephalic. CHEST: Clear. HEART: S1 and S2, regular. EXTREMITIES: No edema. LABORATORY DATA: Today's hemoglobin and hematocrit 10.2 and 30.8. White count and platelet count are within normal limit. Today's BUN and creatinine are 64 and 6.3 respectively. Glucose is 161. The rest of SMA-7 is within normal limit. ASSESSMENT: 1. Osteomyelitis of the left thumb distal phalanx with adjacent cellulitis. 2. Chronic atrial fibrillation. 3. End-stage renal disease, on hemodialysis. 4. Mild anemia. RECOMMENDATIONS: Continue current clonidine at 0.1 mg t.i.d., Azactam at 500 mg intravenously twice a day, aspirin 81 mg once a day, Cozaar 50 mg once a day, Lipitor at 20 mg once a day, Lopressor 50 mg twice a day, vancomycin 1 g with each hemodialysis, Zoloft 25 mg at bedtime, and Xanax 0.25 mg at bedtime. Plavix was discontinued today in anticipation of partial left thumb amputation on Tuesday. In the meantime, Lovenox will be withheld that morning. Rylan Sauceda MD
--- NOTE | 2017-02-05 16:15 | CP.PCM.PN ---
Subjective - Date & Time of Evaluation Date of Evaluation: 02/05/17 Time of Evaluation: 16:14 - Subjective Subjective: seen on dialysis +s1+s2 cta uf goal 3 kg 2k bath tolerating tx bp elevated - asked rn to give the am cozaar that was not given and clondine Objective - Vital Signs/Intake and Output Vital Signs (last 24 hours): Temp Pulse Resp BP Pulse Ox 97.9 F 90 18 167/107 H 100 02/05/17 07:42 02/05/17 16:05 02/05/17 07:42 02/05/17 16:05 02/05/17 07:42 - Medications Medications: Current Medications Acetaminophen (Tylenol 325mg Tab) 650 mg PO Q4 PRN PRN Reason: Fever >100.4 F Last Admin: 01/31/17 18:21 Dose: 650 mg Alprazolam (Xanax) 0.25 mg PO HS [facility] Last Admin: 02/04/17 21:48 Dose: 0.25 mg Aspirin (Ecotrin) 81 mg PO DAILY [facility] Last Admin: 02/05/17 12:38 Dose: 81 mg Atorvastatin Calcium (Lipitor) 20 mg PO HS [facility] Last Admin: 02/04/17 21:48 Dose: 20 mg Calcitriol (Rocaltrol) 0.25 mcg PO DAILY [facility] Last Admin: 02/05/17 10:16 Dose: 0.25 mcg Clonidine HCl (Catapres) 0.1 mg PO TID [facility] Last Admin: 02/05/17 12:37 Dose: Not Given Clopidogrel Bisulfate (Plavix) 75 mg PO DAILY [facility] Last Admin: 02/04/17 09:27 Dose: 75 mg Enoxaparin Sodium (Lovenox) 30 mg SC DAILY [facility] PRN Reason: Protocol Last Admin: 02/05/17 10:15 Dose: 30 mg Glipizide (Glucotrol) 10 mg PO BID [facility] Last Admin: 02/05/17 10:12 Dose: 10 mg Vancomycin HCl 1 gm/ Sodium (Chloride) 250 mls @ 125 mls/hr IVPB TTS [facility] PRN Reason: Protocol Last Admin: 02/03/17 16:32 Dose: 125 mls/hr Aztreonam 500 mg/ Sodium (Chloride) 50 mls @ 50 mls/hr IVPB Q12@0400,1600 [facility] PRN Reason: Protocol Last Admin: 02/05/17 04:46 Dose: 50 mls/hr Ibuprofen (Motrin Tab) 600 mg PO Q6 PRN PRN Reason: Pain, moderate (4-7) Losartan Potassium (Cozaar) 50 mg PO DAILY [facility] Last Admin: 02/05/17 16:05 Dose: 50 mg Metoprolol Tartrate (Lopressor) 50 mg PO BID [facility] Last Admin: 02/05/17 10:12 Dose: Not Given Sertraline HCl (Zoloft) 50 mg PO HS [facility] Last Admin: 02/04/17 21:48 Dose: 50 mg Sevelamer HCl (Renagel) 3,200 mg PO TID [facility] Last Admin: 02/05/17 12:38 Dose: 3,200 mg - Labs Labs: 02/05/17 05:20 02/05/17 05:20 PT 14.3 Seconds (9.8-13.1) H 02/05/17 05:20 INR 1.3 (0.9-1.2) H 02/05/17 05:20 APTT 37.7 Seconds (25.6-37.1) H 02/05/17 05:20
--- NOTE | 2017-02-06 00:26 | PN ---
DATE: 02/03/2017 SUBJECTIVE: The patient still has some pain on the left hand. PHYSICAL EXAMINATION: VITAL SIGNS: Blood pressure was 140/82, temperature 97.9, respiratory rate 20, and pulse 82. HEENT: Slightly pale conjunctivae. NECK: Supple. No JVD. No carotid bruit. No lymph node. No thyromegaly. CHEST AND LUNGS: Bilaterally symmetrical expansion. Good air exchange. No rales. No rhonchi. CARDIOVASCULAR SYSTEM: PMI not localized. S1, S2. No additional sounds. ABDOMEN: Normoactive bowel sounds. No tenderness. No organomegaly. No masses. EXTREMITIES: No cyanosis. No clubbing. No edema. Left hand shows some swelling of the thumb with tenderness on the distal and proximal phalanges. ASSESSMENT: 1. Osteomyelitis of the left thumb. 2. Endstage renal disease, on hemodialysis. 3. Hypertension. 4. Degenerative spine disease with radiculopathy and difficulty in ambulation. PLAN: Continue current IV antibiotics and follow ID recommendations. Follow Hand Surgery recommendations. Alverto Brower MD
[2017-02-06] MEDS: Enoxaparin 30 mg Syringe SC SCH (09:02)
--- NOTE | 2017-02-06 16:30 | PN ---
DATE: Covering for Dr. Brower. SUBJECTIVE: Patient did report diarrhea. PHYSICAL EXAMINATION VITAL SIGNS: Blood pressure 149/93, heart rate 71, temperature 97.6, respirations 20. HEENT: Normocephalic. CHEST: Clear. HEART: S1 and S2, regular. EXTREMITIES: No pedal edema. LABORATORY DATA: Hepatitis profile is positive for hepatitis B surface antibody, otherwise negative study. Today's blood sugar was 125 and 162. ASSESSMENT: 1. Chronic atrial fibrillation. 2. Osteomyelitis of the left thumb distal phalanx with adjacent cellulitis. 3. End-stage renal disease, on hemodialysis. 4. Mild anemia. 5. Diarrhea. RECOMMENDATIONS: Continue current IV Azactam at 500 mg twice a day and vancomycin 1 g with hemodialysis. Plavix is on hold of left thumb surgery on Tuesday. Continue aspirin 81 mg once a day, Lopressor 50 mg twice a day. I will obtain stool for C. diff. Rylan Sauceda MD
[2017-02-07 06:44] LABS: HEMOGLOBIN 10.6 g/dL (12.0-18.0); MEAN CELL VOLUME 95.2 fl (80.0-94.0); MEAN CORPUSCULAR HGB CONC 33.6 g/dL (33.0-37.0); RBC 3.31 Mil/uL (4.40-5.90); RED CELL DISTRIBUTION WIDTH 15.5 % (11.5-14.5); WHITE BLOOD COUNT 6.9 K/uL (4.8-10.8)
[2017-02-07 06:53] LABS: CALCIUM 9.6 mg/dL (8.4-10.2)
[2017-02-07 06:56] LABS: INR 1.3 (0.9-1.2); PARTIAL THROMBOPLASTIN TIME 38.2 Seconds (25.6-37.1)
[2017-02-07] MEDS: Enoxaparin 30 mg Syringe SC SCH (08:41)
[2017-02-07] MEDS ORDERED: Sod Polystyrene Sulf 15 gm/60 ml Susp PO ONE (11:48)
--- NOTE | 2017-02-07 14:31 | CP.PCM.PN ---
Subjective - Date & Time of Evaluation Date of Evaluation: 02/07/17 Time of Evaluation: 14:30 - Subjective Subjective: ID Note- Patient seen and examined today . Pt. denies any fever or chills and stats the left thumb index finger feels slightly better and no more discharge but he is expected to have possible distal amputation of the digit this week . Objective - Vital Signs/Intake and Output Vital Signs (last 24 hours): Temp Pulse Resp BP Pulse Ox 98.8 F 83 20 154/95 H 99 02/07/17 08:02 02/07/17 08:39 02/07/17 08:02 02/07/17 08:39 02/07/17 08:02 - Medications Medications: Current Medications Acetaminophen (Tylenol 325mg Tab) 650 mg PO Q4 PRN PRN Reason: Fever >100.4 F Last Admin: 01/31/17 18:21 Dose: 650 mg Alprazolam (Xanax) 0.25 mg PO HS [facility] Stop: 02/14/17 22:01 Atorvastatin Calcium (Lipitor) 20 mg PO [facility] Last Admin: 02/06/17 21:07 Dose: 20 mg Calcitriol (Rocaltrol) 0.25 mcg PO DAILY [facility] Last Admin: 02/07/17 08:39 Dose: 0.25 mcg Clonidine HCl (Catapres) 0.1 mg PO TID [facility] Last Admin: 02/07/17 12:15 Dose: 0.1 mg Clopidogrel Bisulfate (Plavix) 75 mg PO DAILY [facility] Last Admin: 02/04/17 09:27 Dose: 75 mg Glipizide (Glucotrol) 10 mg PO BID [facility] Last Admin: 02/07/17 08:40 Dose: 10 mg Vancomycin HCl 1 gm/ Sodium (Chloride) 250 mls @ 125 mls/hr IVPB TTS [facility] PRN Reason: Protocol Last Admin: 02/05/17 16:50 Dose: 125 mls/hr Aztreonam 500 mg/ Sodium (Chloride) 50 mls @ 50 mls/hr IVPB Q12@0400,1600 [facility] PRN Reason: Protocol Last Admin: 02/07/17 03:14 Dose: 50 mls/hr Ibuprofen (Motrin Tab) 600 mg PO Q6 PRN PRN Reason: Pain, moderate (4-7) Last Admin: 02/05/17 21:33 Dose: 600 mg Losartan Potassium (Cozaar) 50 mg PO DAILY [facility] Last Admin: 02/07/17 08:40 Dose: 50 mg Metoprolol Tartrate (Lopressor) 50 mg PO BID [facility] Last Admin: 02/07/17 08:39 Dose: 50 mg Ondansetron HCl (Zofran Inj) 4 mg IVP Q6 PRN PRN Reason: Nausea/Vomiting Last Admin: 02/07/17 11:18 Dose: 4 mg Sertraline HCl (Zoloft) 50 mg PO HS [facility] Last Admin: 02/06/17 21:07 Dose: 50 mg Sevelamer HCl (Renagel) 3,200 mg PO TID [facility] Last Admin: 02/07/17 12:16 Dose: 3,200 mg - Labs Labs: Additional Findings Additional findings: - Constitutional Appears: No Acute Distress - Head Exam Head Exam: ATRAUMATIC - ENT Exam ENT Exam: Normal Oropharynx - Neck Exam Neck exam: Positive for: Full Rom - Respiratory Exam Respiratory Exam: Clear to Auscultation Bilateral, NORMAL BREATHING PATTERN - Cardiovascular Exam Cardiovascular Exam: RRR, +S1, +S2 - GI/Abdominal Exam GI & Abdominal Exam: Normal Bowel Sounds, Soft Additional comments: ND, NT - Extremities Exam Additional comments: left distal thumb with erythema, edema but less than few days ago no discharge seen today - Neurological Exa Neurological exam: Alert, Oriented x 3 Laboratory Results - last 72 hr 02/04/17 02/05/17 02/05/17 21:33 05:20 05:20 WBC 5.7 RBC 3.20 L Hgb 10.2 L Hct 30.8 L MCV 96.4 H D MCH 31.9 H MCHC 33.1 RDW 14.7 H Plt Count 165 MPV 8.5 Neut % (Auto) 66.1 Lymph % (Auto) 14.4 L Coffey % (Auto) 13.3 H Eos % (Auto) 5.2 H Baso % (Auto) 1.0 Neut # 3.7 Lymph # 0.8 L Coffey # 0.8 Eos # 0.3 Baso # 0.1 PT 14.3 H INR 1.3 H APTT 37.7 H Sodium Potassium Chloride Carbon Dioxide Anion Gap BUN Creatinine Est GFR ( Amer) Est GFR (Non-Af Amer) POC Glucose (mg/dL) 239 H Random Glucose Calcium Total Bilirubin AST ALT Alkaline Phosphatase Total Protein Albumin Globulin Albumin/Globulin Ratio Lipase C. difficile Ag & Toxin 02/05/17 02/05/17 02/05/17 05:20 05:48 11:01 WBC RBC Hgb Hct MCV MCH MCHC RDW Plt Count MPV Neut % (Auto) Lymph % (Auto) Coffey % (Auto) Eos % (Auto) Baso % (Auto) Neut # Lymph # Coffey # Eos # Baso # PT INR APTT Sodium 137 Potassium 4.9 Chloride 100 Carbon Dioxide 22 Anion Gap 20 BUN 64 H Creatinine 6.3 H Est GFR ( Amer) 11 Est GFR (Non-Af Amer) 9 POC Glucose (mg/dL) 158 H 151 H Random Glucose 161 H Calcium 9.5 Total Bilirubin 1.3 AST 18 ALT 35 Alkaline Phosphatase 445 H D Total Protein 8.2 Albumin 3.6 Globulin 4.6 H Albumin/Globulin Ratio 0.8 L Lipase C. difficile Ag & Toxin 02/05/17 02/05/17 02/06/17 16:03 21:32 05:13 WBC RBC Hgb Hct MCV MCH MCHC RDW Plt Count MPV Neut % (Auto) Lymph % (Auto) Coffey % (Auto) Eos % (Auto) Baso % (Auto) Neut # Lymph # Coffey # Eos # Baso # PT INR APTT Sodium Potassium Chloride Carbon Dioxide Anion Gap BUN Creatinine Est GFR ( Amer) Est GFR (Non-Af Amer) POC Glucose (mg/dL) 175 H 229 H 125 H Random Glucose Calcium Total Bilirubin AST ALT Alkaline Phosphatase Total Protein Albumin Globulin Albumin/Globulin Ratio Lipase C. difficile Ag & Toxin 02/06/17 02/06/17 02/06/17 08:40 11:09 15:57 WBC RBC Hgb Hct MCV MCH MCHC RDW Plt Count MPV Neut % (Auto) Lymph % (Auto) Coffey % (Auto) Eos % (Auto) Baso % (Auto) Neut # Lymph # Coffey # Eos # Baso # PT INR APTT Sodium Potassium Chloride Carbon Dioxide Anion Gap BUN Creatinine Est GFR ( Amer) Est GFR (Non-Af Amer) POC Glucose (mg/dL) 162 H 201 H Random Glucose Calcium Total Bilirubin AST ALT Alkaline Phosphatase Total Protein Albumin Globulin Albumin/Globulin Ratio Lipase C. difficile Ag & Toxin Negative 02/06/17 02/07/17 02/07/17 21:51 05:14 06:30 WBC 6.9 RBC 3.31 L Hgb 10.6 L Hct 31.5 L MCV 95.2 H MCH 32.0 H MCHC 33.6 RDW 15.5 H Plt Count 207 MPV Neut % (Auto) Lymph % (Auto) Coffey % (Auto) Eos % (Auto) Baso % (Auto) Neut # Lymph # Coffey # Eos # Baso # PT INR APTT Sodium Potassium Chloride Carbon Dioxide Anion Gap BUN Creatinine Est GFR ( Amer) Est GFR (Non-Af Amer) POC Glucose (mg/dL) 192 H 133 H Random Glucose Calcium Total Bilirubin AST ALT Alkaline Phosphatase Total Protein Albumin Globulin Albumin/Globulin Ratio Lipase C. difficile Ag & Toxin 02/07/17 02/07/17 02/07/17 06:30 06:30 11:08 WBC RBC Hgb Hct MCV MCH MCHC RDW Plt Count MPV Neut % (Auto) Lymph % (Auto) Coffey % (Auto) Eos % (Auto) Baso % (Auto) Neut # Lymph # Coffey # Eos # Baso # PT 14.0 H INR 1.3 H APTT 38.2 H Sodium 141 Potassium 5.6 H Chloride 100 Carbon Dioxide 24 Anion Gap 23 H BUN 75 H Creatinine 6.8 H Est GFR ( Amer) 10 Est GFR (Non-Af Amer) 8 POC Glucose (mg/dL) 154 H Random Glucose 140 H Calcium 9.6 Total Bilirubin AST ALT Alkaline Phosphatase Total Protein Albumin Globulin Albumin/Globulin Ratio Lipase C. difficile Ag & Toxin 02/07/17 02/07/17 12:40 16:12 WBC RBC Hgb Hct MCV MCH MCHC RDW Plt Count MPV Neut % (Auto) Lymph % (Auto) Coffey % (Auto) Eos % (Auto) Baso % (Auto) Neut # Lymph # Coffey # Eos # Baso # PT INR APTT Sodium Potassium Chloride Carbon Dioxide Anion Gap BUN Creatinine Est GFR ( Amer) Est GFR (Non-Af Amer) POC Glucose (mg/dL) 165 H Random Glucose Calcium Total Bilirubin AST ALT Alkaline Phosphatase Total Protein Albumin Globulin Albumin/Globulin Ratio Lipase 201 C. difficile Ag & Toxin Microbiology 01/29/17 17:30 Blood Blood Culture - Final NO GROWTH AFTER 5 DAYS 01/29/17 17:30 Blood Gram Stain - Final TEST NOT PERFORMED 01/29/17 17:30 Finger Gram Stain - Final 01/29/17 17:30 Finger Wound Culture - Final Staphylococcus Aureus Accession No. : [id number] Patient Name / ID : AYANA MOBLEY / [id number] Exam Date : 02/02/2017 13:26:01 ( Approved ) Study Comment : Sex / Age : M / [id number] Creator : Nixon Clemons MD Dictator : Nixon Clemons MD Care Technician : Copier Technician : Nixon Clemons MD Approver2 : Report Date : 02/02/2017 17:27:03 My Comment : PROCEDURE: LEFT THUMB MRI WITHOUT CONTRAST HISTORY: ATTN: left thumb dX: infection, r/o osteo/abscess COMPARISON: Left thumb radiographs 01/29/2017. No prior MRI available for comparison. TECHNIQUE: Multiplanar multisequential mr imaging of the left thumb was performed without intravenous gadolinium as requested. FINDINGS: There is relatively extensive soft tissue edema identified involving the left thumb soft tissues diffusely but also extending into the thenar eminence and lateral hand and wrist soft tissues hepatic compatible with cellulitis. No definitive abscess identified. The flexor pollicis tendon complex to the thumb is inflamed and thickened suggestive of infectious tendinitis as well or tear. Clinically correlate as the former is favored. The extensor tendon complex appears unremarkable. There is extensive edema affecting the distal phalanx of the thumb diffusely with erosion of the cortex not excluded in the numerous mid and distal as well as proximal segments. Intermediate fat-suppressed proton density signal intensity in the proximal phalanx may be artifactual as no corresponding diminished T1 signal is seen and this may not indicate osteomyelitis of the proximal phalanx. IMPRESSION: Findings compatible with marked osteomyelitis affecting the distal phalanx of left thumb a likely not the proximal phalanx or the 1st metacarpal bone either. Extensive cellulitis affects the soft tissue surrounding the entire thumb and extends into the radial hand soft tissues including the thenar eminence without definitive abscess appreciable. Infectious tendinitis is favored over longitudinal tear of the flexor pollicis tendon complex. Further clinical correlation is recommended. Assessment and Plan (1) CKD (chronic kidney disease) requiring chronic dialysis Status: Acute (2) Cellulitis and abscess Status: Acute (3) Osteomyelitis Status: Acute (4) ESRD on hemodialysis Status: Acute (5) Diabetic neuropathy Status: Acute - Assessment and Plan (Free Text) Assessment: A/P- 61 year old male with ESRD On HD, DM II, HTN, neuropahty with auto infection with naul biting admitted with left distal thumb infection. afebrile normal wbc count left thumb wound cx- MRSA blood cx- neg x 2 high ESR MRI report- left thumb distal phalanx OM Plan- advise to continue with IV vanco post Hd days. # 5 doses so far since post HD days. keep trough <15. monitor hearing while on vancomycin. length of abx pending surgical decision regarding amputation of the left distal thumb region. all above d/w patietn and he verbalizes full understanding of all above.
--- NOTE | 2017-02-07 16:06 | PN ---
DATE: SUBJECTIVE: The patient is experiencing diarrhea and today he is vomiting. PHYSICAL EXAMINATION: VITAL SIGNS: Blood pressure 154/95, heart rate 83, temperature 98.8, respirations 20. HEENT: Pale conjunctivae. CHEST: Clear. HEART: S1 and S2, regular. ABDOMEN: Soft. EXTREMITIES: No pedal edema. LABORATORY DATA: Today's potassium is 5.6, BUN and creatinine 75 and 6.8, glucose is 140. Today's hemoglobin and hematocrit 10.6 and 31.5, white count and platelet count are within normal limit. Stool C. diff is negative which was obtained yesterday. ASSESSMENT: 1. Chronic atrial fibrillation. 2. Left thumb distal phalangeal osteomyelitis. 3. Hyperkalemia. 4. End-stage renal disease, on hemodialysis. 5. Nausea and vomiting. RECOMMENDATIONS: Obtain serum lipase level. I will administer Kayexalate at 30 g p.o. now. Hold aspirin if vomiting. Continue Cozaar, clonidine, and Lopressor. Start Zofran 4 mg intravenously q. 6 hours p.r.n. Rylan MD Komal
--- NOTE | 2017-02-08 09:46 | PN ---
DATE: SUBJECTIVE: The patient is feeling much better. Appetite is good. Sitting up. No chest pain. No diarrhea. OBJECTIVE: VITAL SIGNS: Blood pressure 145/88, pulse 90, temperature 98.8. NECK: Supple. CHEST: Clear. HEART: No rubs. ABDOMEN: Soft. EXTREMITIES: No edema. Left thumb where he has osteomyelitis has been covered. IMPRESSION AND PLAN: 1. The patient has osteomyelitis of the left thumb, receiving antibiotics. 2. Anemia. The patient is receiving EPO. 3. Hyperphosphatemia, on phosphorus binders. 4. Secondary hyperparathyroidism, receiving calcitriol. 5. End-stage renal disease with dialysis Tuesday, , Tuesday. The patient is scheduled for hemodialysis for tomorrow. Andrew Rodriguez MD
[2017-02-08] MEDS ORDERED: Propofol 10 mg/ml Inj (20 ML) ONE (10:08)
[2017-02-08] MEDS ORDERED: Midazolam 2 MG/2 ML VIAL ONE (10:09)
[2017-02-08] MEDS ORDERED: Etomidate 20 mg/10ml Inj IV ONE (10:10)
[2017-02-08 10:40] LABS: CALCIUM 9.4 mg/dL (8.4-10.2)
--- NOTE | 2017-02-08 12:09 | CP.PCM.PN ---
Subjective - Date & Time of Evaluation Date of Evaluation: 02/08/17 Time of Evaluation: 12:07 - Subjective Subjective: Surgery cancelled per Dr. Gutierrez due to high potassium. Will reschedule for 02/09 at 1 pm Objective - Vital Signs/Intake and Output Vital Signs (last 24 hours): Temp Pulse Resp BP Pulse Ox 97.5 F L 84 20 171/92 H 99 02/08/17 07:55 02/08/17 08:39 02/08/17 07:55 02/08/17 08:39 02/08/17 07:55 - Medications Medications: Current Medications Acetaminophen (Tylenol 325mg Tab) 650 mg PO Q4 PRN PRN Reason: Fever >100.4 F Last Admin: 01/31/17 18:21 Dose: 650 mg Alprazolam (Xanax) 0.25 mg PO HS [facility] Stop: 02/14/17 22:01 Last Admin: 02/07/17 21:34 Dose: 0.25 mg Atorvastatin Calcium (Lipitor) 20 mg PO [facility] Last Admin: 02/07/17 21:34 Dose: 20 mg Calcitriol (Rocaltrol) 0.25 mcg PO DAILY [facility] Last Admin: 02/08/17 08:38 Dose: Not Given Clonidine HCl (Catapres) 0.1 mg PO TID [facility] Last Admin: 02/08/17 08:37 Dose: Not Given Clopidogrel Bisulfate (Plavix) 75 mg PO DAILY [facility] Last Admin: 02/04/17 09:27 Dose: 75 mg Glipizide (Glucotrol) 10 mg PO BID [facility] Last Admin: 02/08/17 08:37 Dose: Not Given Vancomycin HCl 1 gm/ Sodium (Chloride) 250 mls @ 125 mls/hr IVPB TTS [facility] PRN Reason: Protocol Last Admin: 02/05/17 16:50 Dose: 125 mls/hr Ibuprofen (Motrin Tab) 600 mg PO Q6 PRN PRN Reason: Pain, moderate (4-7) Last Admin: 02/05/17 21:33 Dose: 600 mg Losartan Potassium (Cozaar) 50 mg PO DAILY [facility] Last Admin: 02/08/17 08:37 Dose: Not Given Metoprolol Tartrate (Lopressor) 50 mg PO BID [facility] Last Admin: 02/08/17 08:39 Dose: 50 mg Ondansetron HCl (Zofran Inj) 4 mg IVP Q6 PRN PRN Reason: Nausea/Vomiting Last Admin: 02/07/17 11:18 Dose: 4 mg Sertraline HCl (Zoloft) 50 mg PO HS [facility] Last Admin: 02/07/17 21:34 Dose: 50 mg Sevelamer HCl (Renagel) 3,200 mg PO TID [facility] Last Admin: 02/08/17 08:37 Dose: Not Given - Labs Labs: 02/07/17 06:30 02/08/17 10:19 PT 14.0 Seconds (9.8-13.1) H 02/07/17 06:30 INR 1.3 (0.9-1.2) H 02/07/17 06:30 APTT 38.2 Seconds (25.6-37.1) H 02/07/17 06:30 Assessment and Plan (1) Cellulitis of left thumb Status: Acute (2) Osteomyelitis of left hand Status: Acute
[2017-02-08] MEDS ORDERED: Sod Polystyrene Sulf 15 gm/60 ml Susp PO ONE (12:29)
--- NOTE | 2017-02-08 12:55 | CP.PCM.PN ---
Subjective - Date & Time of Evaluation Date of Evaluation: 02/08/17 Time of Evaluation: 12:52 - Subjective Subjective: Patient and bedshortness of breath no difficulty breathing. The at the bedside and the daughter Surgery has been canceled because of hyperkalemia No chest pain Objective - Vital Signs/Intake and Output Vital Signs (last 24 hours): Temp Pulse Resp BP Pulse Ox 97.5 F L 84 20 171/92 H 99 02/08/17 07:55 02/08/17 08:39 02/08/17 07:55 02/08/17 08:39 02/08/17 07:55 - Medications Medications: Current Medications Acetaminophen (Tylenol 325mg Tab) 650 mg PO Q4 PRN PRN Reason: Fever >100.4 F Last Admin: 01/31/17 18:21 Dose: 650 mg Alprazolam (Xanax) 0.25 mg PO HS [facility] Stop: 02/14/17 22:01 Last Admin: 02/07/17 21:34 Dose: 0.25 mg Atorvastatin Calcium (Lipitor) 20 mg PO [facility] Last Admin: 02/07/17 21:34 Dose: 20 mg Calcitriol (Rocaltrol) 0.25 mcg PO DAILY [facility] Last Admin: 02/07/17 08:39 Dose: 0.25 mcg Clonidine HCl (Catapres) 0.1 mg PO TID [facility] Last Admin: 02/08/17 08:37 Dose: Not Given Clopidogrel Bisulfate (Plavix) 75 mg PO DAILY [facility] Last Admin: 02/04/17 09:27 Dose: 75 mg Glipizide (Glucotrol) 10 mg PO BID [facility] Last Admin: 02/07/17 16:22 Dose: 10 mg Vancomycin HCl 1 gm/ Sodium (Chloride) 250 mls @ 125 mls/hr IVPB TTS [facility] PRN Reason: Protocol Last Admin: 02/05/17 16:50 Dose: 125 mls/hr Ibuprofen (Motrin Tab) 600 mg PO Q6 PRN PRN Reason: Pain, moderate (4-7) Last Admin: 02/05/17 21:33 Dose: 600 mg Losartan Potassium (Cozaar) 50 mg PO DAILY [facility] Last Admin: 02/07/17 08:40 Dose: 50 mg Metoprolol Tartrate (Lopressor) 50 mg PO BID [facility] Last Admin: 02/08/17 08:39 Dose: 50 mg Ondansetron HCl (Zofran Inj) 4 mg IVP Q6 PRN PRN Reason: Nausea/Vomiting Last Admin: 02/07/17 11:18 Dose: 4 mg Sertraline HCl (Zoloft) 50 mg PO HS [facility] Last Admin: 02/07/17 21:34 Dose: 50 mg Sevelamer HCl (Renagel) 3,200 mg PO TID [facility] Last Admin: 02/08/17 08:37 Dose: Not Given - Labs Labs: 02/07/17 06:30 02/08/17 10:19 PT 14.0 Seconds (9.8-13.1) H 02/07/17 06:30 INR 1.3 (0.9-1.2) H 02/07/17 06:30 APTT 38.2 Seconds (25.6-37.1) H 02/07/17 06:30 - Constitutional Appears: No Acute Distress - ENT Exam ENT Exam: Mucous Membranes Moist - Respiratory Exam Respiratory Exam: Rhonchi, NORMAL BREATHING PATTERN. absent: Chest Wall Tenderness - Cardiovascular Exam Cardiovascular Exam: absent: Irregular Rhythm, Rubs - GI/Abdominal Exam GI & Abdominal Exam: Soft, Normal Bowel Sounds. absent: Guarding, Rigid - Extremities Exam Extremities Exam: absent: Calf Tenderness - Back Exam Back Exam: absent: CVA tenderness (L), CVA tenderness (R) - Neurological Exam Neurological Exam: Alert - Psychiatric Exam Psychiatric exam: Normal Affect Assessment and Plan (1) CKD (chronic kidney disease) requiring chronic dialysis Assessment & Plan: End stage kidney disease on dialysis. Patient scheduled to have dialysis shortly. Hyperkalemia Surgery was canceled and rescheduled for tomorrow so he can have his dialysis today. Osteomyelitis of the tip of the thumb Anemia on medication EPO Hyperphosphatemia on binders Secondary hyperparathyroidism on calcitriol Status: Acute (2) Osteomyelitis Status: Acute
--- NOTE | 2017-02-08 23:19 | PN ---
DATE: 02/08/2017 SUBJECTIVE: The patient was scheduled for hand surgery today, but it was canceled because of hyperkalemia as the patient's potassium was 5.8. Patient was given lactulose and hemodialysis also was ordered. PHYSICAL EXAMINATION: VITAL SIGNS: Blood pressure 148/94, temperature 98.1, respiratory rate 18, and pulse 57. NECK: Supple. No JVD. No carotid bruit. No lymph node. No thyromegaly. CHEST AND LUNGS: Bilateral symmetrical expansion. Good air exchange. No rales, no rhonchi. CARDIOVASCULAR SYSTEM: PMI not localized. S1 and S2. No additional sounds. ABDOMEN: Normoactive bowel sounds. No tenderness. No organomegaly. No masses. EXTREMITIES: No cyanosis, no clubbing, no edema. Left hand has swollen left thumb. CENTRAL NERVOUS SYSTEM: Alert, awake, oriented x2 and patient has bilateral lower extremity weakness, right more than left. ASSESSMENT: 1. Osteomyelitis of the left hand. 2. Type 2 diabetes mellitus. 3. End-stage renal disease, on hemodialysis. 4. Hypertension. PLAN: Continue current IV antibiotics and follow recommendations of surgery as well as ID. Continue hemodialysis and repeat the patient's chemistry. Alverto Brower MD
[2017-02-09 07:17] LABS: CALCIUM 9.4 mg/dL (8.4-10.2)
--- NOTE | 2017-02-09 12:01 | CP.PCM.PN ---
Subjective - Date & Time of Evaluation Date of Evaluation: 02/09/17 Time of Evaluation: 11:57 - Subjective Subjective: Patient in bed and appears to be comfortable he was seen earlier Chest pain or shortness of breath Vital signs stable Objective - Vital Signs/Intake and Output Vital Signs (last 24 hours): Temp Pulse Resp BP Pulse Ox 97.4 F L 89 20 144/82 97 02/09/17 07:47 02/09/17 07:47 02/09/17 07:47 02/09/17 07:47 02/09/17 07:47 - Medications Medications: Current Medications Acetaminophen (Tylenol 325mg Tab) 650 mg PO Q4 PRN PRN Reason: Fever >100.4 F Last Admin: 01/31/17 18:21 Dose: 650 mg Acetaminophen (Tylenol 325mg Tab) 650 mg PO Q6 PRN PRN Reason: Headache Last Admin: 02/08/17 18:11 Dose: 650 mg Alprazolam (Xanax) 0.25 mg PO HS [facility] Stop: 02/14/17 22:01 Last Admin: 02/08/17 22:20 Dose: 0.25 mg Atorvastatin Calcium (Lipitor) 20 mg PO [facility] Last Admin: 02/08/17 22:20 Dose: 20 mg Calcitriol (Rocaltrol) 0.25 mcg PO DAILY [facility] Last Admin: 02/09/17 09:00 Dose: Not Given Clonidine HCl (Catapres) 0.1 mg PO TID [facility] Last Admin: 02/09/17 09:00 Dose: 0.1 mg Clopidogrel Bisulfate (Plavix) 75 mg PO DAILY [facility] Last Admin: 02/04/17 09:27 Dose: 75 mg Glipizide (Glucotrol) 10 mg PO BID [facility] Last Admin: 02/09/17 09:00 Dose: Not Given Vancomycin HCl 1 gm/ Sodium (Chloride) 250 mls @ 125 mls/hr IVPB TTS [facility] PRN Reason: Protocol Last Admin: 02/05/17 16:50 Dose: 125 mls/hr Ibuprofen (Motrin Tab) 600 mg PO Q6 PRN PRN Reason: Pain, moderate (4-7) Last Admin: 02/05/17 21:33 Dose: 600 mg Losartan Potassium (Cozaar) 50 mg PO DAILY [facility] Last Admin: 02/09/17 08:59 Dose: 50 mg Metoprolol Tartrate (Lopressor) 50 mg PO BID [facility] Last Admin: 02/09/17 08:59 Dose: 50 mg Ondansetron HCl (Zofran Inj) 4 mg IVP Q6 PRN PRN Reason: Nausea/Vomiting Last Admin: 02/07/17 11:18 Dose: 4 mg Sertraline HCl (Zoloft) 50 mg PO HS [facility] Last Admin: 02/08/17 22:20 Dose: 50 mg Sevelamer HCl (Renagel) 3,200 mg PO TID [facility] Last Admin: 02/09/17 09:00 Dose: Not Given - Labs Labs: 02/07/17 06:30 02/09/17 05:40 PT 14.0 Seconds (9.8-13.1) H 02/07/17 06:30 INR 1.3 (0.9-1.2) H 02/07/17 06:30 APTT 38.2 Seconds (25.6-37.1) H 02/07/17 06:30 - Constitutional Appears: No Acute Distress - ENT Exam ENT Exam: Mucous Membranes Moist - Neck Exam Neck Exam: absent: Lymphadenopathy - Respiratory Exam Respiratory Exam: NORMAL BREATHING PATTERN. absent: Rales - Cardiovascular Exam Cardiovascular Exam: Irregular Rhythm. absent: JVD, Rubs - GI/Abdominal Exam GI & Abdominal Exam: Soft, Normal Bowel Sounds - Back Exam Back Exam: absent: CVA tenderness (L), CVA tenderness (R) - Neurological Exam Neurological Exam: Alert - Psychiatric Exam Psychiatric exam: Normal Affect - Skin Skin Exam: absent: Cyanosis Assessment and Plan (1) CKD (chronic kidney disease) requiring chronic dialysis Assessment & Plan: Osteomyelitis of the left finger patient is going for surgery as reported to me. Hyperkalemia corrected after dialysis yesterday serum potassium is normal 4.8 Anemia patient receiving EPO Hyperphosphatemia patient receiving binders Secondary hyperparathyroidism patient receiving calcitriol Hypertension patient on medication and controlled Chronic A. fib stable Diabetes mellitus as per primary team. Status: Acute (2) Osteomyelitis Status: Acute
[2017-02-09] MEDS ORDERED: Bupivacaine 0.5% Inj(30mL) ONE (12:41)
[2017-02-09] MEDS ORDERED: ceFAZolin IV 1 gm in Dextrose 0 GM/0 ML BAG IVPB ONE (12:41)
[2017-02-09] MEDS ORDERED: Lidocaine 1% Inj (20ml) ONE (12:41)
[2017-02-09] MEDS ORDERED: Lidocaine 2% Inj (20ml) ONE (12:41)
[2017-02-09] MEDS ORDERED: Midazolam 2 MG/2 ML VIAL ONE (13:44)
[2017-02-09] MEDS ORDERED: Sodium Chloride 0.9% 500 ML IV ONE (13:47)
[2017-02-09] MEDS ORDERED: Lidocaine 2% Inj (20ml) IJ ONE (14:18)
--- NOTE | 2017-02-09 17:26 | PCM.SURG1 ---
Surgeon's Initial Post Op Note - Surgeon's Notes Surgeon: Larisa Gutierrez MD Guitar Teacher: Monster Flores PA-C Type of Anesthesia: Block Regional, IV Sedation Anesthesia Administered By: Dr. Stafford Pre-Operative Diagnosis: Left thumb infection/osteomyelitis Operative Findings: same, see detailed report Post-Operative Diagnosis: same Operation Performed: left thumb partial amputation (disarticulation at IP joint) Specimen/Specimens Removed: sent for pathology and culture Estimated Blood Loss: EBL {In ML}: 5 Blood Products Given: N/A Drains Used: No Drains Post-Op Condition: Fair Date of Surgery/Procedure: 02/09/17 Time of Surgery/Procedure: 14:00
--- NOTE | 2017-02-09 23:02 | OP ---
PROCEDURE DATE: 02/09/2017 PREOPERATIVE DIAGNOSIS: Osteomyelitis of left thumb distal phalanx. POSTOPERATIVE DIAGNOSIS: Osteomyelitis of left thumb distal phalanx. PROCEDURE: 1. Partial left thumb amputation at the level of the distal interphalangeal joint with local skin flap advencement 2. Left thumb debridement of proximal phalanx and bone. SURGEON: Jose Gutierrez MD. ENDOCRINOLOGY SPECIALIST: MARIANNE Campo. TYPE OF ANESTHESIA: Local. ESTIMATED BLOOD LOSS: Minimal. COMPLICATIONS: None. SPECIMEN: Distal phalanx thumb. DISPOSITION: Stable to recovery room. INDICATIONS: A 61-year-old male with history of multiple digit osteomyelitis in the past requiring partial finger amputation with endstage renal disease, has developed osteomyelitis of his left thumb distal phalanx, being treated with IV antibiotics. MRI confirmed osteomyelitis of the bone. Patient is indicated for the above procedure. Risks and benefits of the surgery were explained including loss of function of the hand. Patient understood the risks and elected to proceed. Informed consent was obtained. DESCRIPTION OF PROCEDURE: The patient was brought to the operating room and placed supine on the operating room table. Timeout was performed. Regional anesthesia was given digital nerve block with 2% lidocaine. A digital tourniquet was applied to the thumb. Incision was outlined, this was a fish-mouth incision over the distal interphalangeal joint. Incision was made in the skin only. All superficial veins were cauterized. Dissection was carried down to the underlying extensor tendon and flexor tendon of the thumb IP joint. The tendons were incised in its entirety. The incision was then carried down identifying both digital neurovascular bundles, which were cauterized at the level of the amputation. Collateral ligaments were incised and IP joint was exposed. The IP joint was then incised in its entirety including the volar plate. The distal phalanx was excised in its entirety and sent to pathology and to microbiology. Skin flaps were developed, had good capillary refills. Next, the head of the proximal phalanx was debrided using rongeurs and curettes down to bleeding healthy bone. The edges were rasped to smooth border. The wound was then copiously irrigated. The two edges of the skin flaps were then advanced brought together and closed with simple nylon interrupted sutures, the flaps had good capillary refills. Patient tolerated the procedure well and was returned to recovery room in excellent condition. A sterile dressing was applied, which included Xeroform, 4 x 4, and a thumb spica splint. Jose Gutierrez MD [facility]
[2017-02-10 06:43] LABS: MEAN CORPUSCULAR HEMOGLOBIN 30.9 pg (27.0-31.0); MEAN CORPUSCULAR HGB CONC 32.2 g/dL (33.0-37.0); RBC 3.23 Mil/uL (4.40-5.90); RED CELL DISTRIBUTION WIDTH 15.5 % (11.5-14.5); WHITE BLOOD COUNT 5.9 K/uL (4.8-10.8)
[2017-02-10 06:47] LABS: CALCIUM 9.1 mg/dL (8.4-10.2)
--- NOTE | 2017-02-10 07:42 | CP.PCM.PN ---
Subjective - Date & Time of Evaluation Date of Evaluation: 02/10/17 Time of Evaluation: 07:40 - Subjective Subjective: Patient conscious and alert no significant changes clinically No nausea and vomiting No chest pain Objective - Vital Signs/Intake and Output Vital Signs (last 24 hours): Temp Pulse Resp BP Pulse Ox 97.6 F 70 20 148/86 98 02/10/17 05:37 02/10/17 05:37 02/10/17 05:37 02/10/17 05:37 02/10/17 05:37 - Medications Medications: Current Medications Acetaminophen (Tylenol 325mg Tab) 650 mg PO Q4 PRN PRN Reason: Fever >100.4 F Last Admin: 01/31/17 18:21 Dose: 650 mg Acetaminophen (Tylenol 325mg Tab) 650 mg PO Q6 PRN PRN Reason: Headache Last Admin: 02/08/17 18:11 Dose: 650 mg Alprazolam (Xanax) 0.[address] [facility] Stop: 02/14/17 22:01 Last Admin: 02/09/17 21:06 Dose: 0.25 mg Atorvastatin Calcium (Lipitor) [address] [facility] Last Admin: 02/09/17 21:06 Dose: 20 mg Calcitriol (Rocaltrol) 0.25 mcg PO DAILY [facility] Last Admin: 02/09/17 09:00 Dose: Not Given Clonidine HCl (Catapres) 0.1 mg PO TID [facility] Last Admin: 02/09/17 16:45 Dose: 0.1 mg Clopidogrel Bisulfate (Plavix) 75 mg PO DAILY [facility] Last Admin: 02/04/17 09:27 Dose: 75 mg Glipizide (Glucotrol) 10 mg PO BID [facility] Last Admin: 02/09/17 16:45 Dose: 10 mg Vancomycin HCl 1 gm/ Sodium (Chloride) 250 mls @ 125 mls/hr IVPB TTS [facility] PRN Reason: Protocol Last Admin: 02/05/17 16:50 Dose: 125 mls/hr Ibuprofen (Motrin Tab) 600 mg PO Q6 PRN PRN Reason: Pain, moderate (4-7) Last Admin: 02/05/17 21:33 Dose: 600 mg Losartan Potassium (Cozaar) 50 mg PO DAILY [facility] Last Admin: 02/09/17 08:59 Dose: 50 mg Metoprolol Tartrate (Lopressor) 50 mg PO BID [facility] Last Admin: 02/09/17 16:46 Dose: 50 mg Ondansetron HCl (Zofran Inj) 4 mg IVP Q6 PRN PRN Reason: Nausea/Vomiting Last Admin: 02/07/17 11:18 Dose: 4 mg Sertraline HCl (Zoloft) 50 mg PO HS [facility] Last Admin: 02/09/17 21:06 Dose: 50 mg Sevelamer HCl (Renagel) 3,200 mg PO TID [facility] Last Admin: 02/09/17 16:44 Dose: 3,200 mg - Labs Labs: 02/10/17 05:30 02/10/17 05:30 PT 14.0 Seconds (9.8-13.1) H 02/07/17 06:30 INR 1.3 (0.9-1.2) H 02/07/17 06:30 APTT 38.2 Seconds (25.6-37.1) H 02/07/17 06:30 - Constitutional Appears: No Acute Distress - ENT Exam ENT Exam: Mucous Membranes Moist - Respiratory Exam Respiratory Exam: NORMAL BREATHING PATTERN. absent: Chest Wall Tenderness - Cardiovascular Exam Cardiovascular Exam: Irregular Rhythm. absent: JVD, Rubs - GI/Abdominal Exam GI & Abdominal Exam: Soft, Normal Bowel Sounds - Extremities Exam Extremities Exam: absent: Calf Tenderness - Back Exam Back Exam: absent: CVA tenderness (L), CVA tenderness (R) - Neurological Exam Neurological Exam: Alert - Skin Skin Exam: absent: Cyanosis Assessment and Plan (1) CKD (chronic kidney disease) requiring chronic dialysis Assessment & Plan: And his stage renal disease on dialysis patient scheduled to have hemodialysis later on. Dialysis orders in place Status post partial amputation of the left thumb because of the osteomyelitis as noted by the surgery. Hyperkalemia corrected after dialysis yesterday serum potassium is normal 4.8 Anemia patient receiving EPO Hyperphosphatemia patient receiving binders Secondary hyperparathyroidism patient receiving calcitriol Hypertension patient on medication and controlled Chronic A. fib stable Diabetes mellitus as per primary team. Antibiotics as per primary team. Status: Acute (2) Osteomyelitis Status: Acute
--- NOTE | 2017-02-10 08:24 | CP.PCM.PN ---
Subjective - Date & Time of Evaluation Date of Evaluation: 02/10/17 Time of Evaluation: 08:24 - Subjective Subjective: Patient states pain is well controlled. He says the pain is about the same as it was pre op. Denies numbness/tingling. Objective - Vital Signs/Intake and Output Vital Signs (last 24 hours): Temp Pulse Resp BP Pulse Ox 98.1 F 70 18 152/85 H 100 02/10/17 07:57 02/10/17 07:57 02/10/17 07:57 02/10/17 07:57 02/10/17 07:57 - Medications Medications: Current Medications Acetaminophen (Tylenol 325mg Tab) 650 mg PO Q4 PRN PRN Reason: Fever >100.4 F Last Admin: 01/31/17 18:21 Dose: 650 mg Acetaminophen (Tylenol 325mg Tab) 650 mg PO Q6 PRN PRN Reason: Headache Last Admin: 02/08/17 18:11 Dose: 650 mg Alprazolam (Xanax) 0.25 mg PO [facility] Stop: 02/14/17 22:01 Last Admin: 02/09/17 21:06 Dose: 0.25 mg Atorvastatin Calcium (Lipitor) 20 mg PO [facility] Last Admin: 02/09/17 21:06 Dose: 20 mg Calcitriol (Rocaltrol) 0.25 mcg PO DAILY [facility] Last Admin: 02/09/17 09:00 Dose: Not Given Clonidine HCl (Catapres) 0.1 mg PO TID [facility] Last Admin: 02/09/17 16:45 Dose: 0.1 mg Clopidogrel Bisulfate (Plavix) 75 mg PO DAILY [facility] Last Admin: 02/04/17 09:27 Dose: 75 mg Glipizide (Glucotrol) 10 mg PO BID [facility] Last Admin: 02/09/17 16:45 Dose: 10 mg Vancomycin HCl 1 gm/ Sodium (Chloride) 250 mls @ 125 mls/hr IVPB TTS [facility] PRN Reason: Protocol Last Admin: 02/05/17 16:50 Dose: 125 mls/hr Ibuprofen (Motrin Tab) 600 mg PO Q6 PRN PRN Reason: Pain, moderate (4-7) Last Admin: 02/05/17 21:33 Dose: 600 mg Losartan Potassium (Cozaar) 50 mg PO DAILY [facility] Last Admin: 02/09/17 08:59 Dose: 50 mg Metoprolol Tartrate (Lopressor) 50 mg PO BID [facility] Last Admin: 02/09/17 16:46 Dose: 50 mg Ondansetron HCl (Zofran Inj) 4 mg IVP Q6 PRN PRN Reason: Nausea/Vomiting Last Admin: 02/07/17 11:18 Dose: 4 mg Sertraline HCl (Zoloft) 50 mg PO HS [facility] Last Admin: 02/09/17 21:06 Dose: 50 mg Sevelamer HCl (Renagel) 3,200 mg PO TID [facility] Last Admin: 02/09/17 16:44 Dose: 3,200 mg - Labs Labs: 02/10/17 05:30 02/10/17 05:30 PT 14.0 Seconds (9.8-13.1) H 02/07/17 06:30 INR 1.3 (0.9-1.2) H 02/07/17 06:30 APTT 38.2 Seconds (25.6-37.1) H 02/07/17 06:30 - Extremities Exam Additional comments: Left thumb: small amt of sang drainage noted. Splint intact, patient comfortable Assessment and Plan (1) Cellulitis of left thumb Assessment & Plan: POD#1 s/p partial amputation left thumb -antibiotics per ID -elevation -d/w Dr. Gutierrez, agrees with above Status: Acute (2) Osteomyelitis of left hand Status: Acute
--- NOTE | 2017-02-10 12:50 | PN ---
DATE: 02/09/2017 SUBJECTIVE: The patient was seen on 02/09/2017 postoperative. The patient had a hand surgery with debridement of osteomyelitis of the left thumb. OBJECTIVE: VITAL SIGNS: Blood pressure was 126/76, temperature 97.3, respiratory rate 18, and pulse 64. HEENT: Slightly pale mucosa of the conjunctivae. NECK: Supple. No JVD. No carotid bruit. No lymph nodes. No thyromegaly. CHEST AND LUNGS: Bilateral symmetrical expansion. Good air exchange. No rales. No rhonchi. CARDIOVASCULAR: PMI not localized. S1 and S2. Irregularly irregular. ABDOMEN: Normoactive bowel sounds. No tenderness. No organomegaly. No masses. EXTREMITIES: No cyanosis, no clubbing, no edema. CENTRAL NERVOUS SYSTEM: Alert, awake, oriented x2, and the patient has bilateral lower extremity weakness with unsteadiness due to severe radiculopathy and neuropathy. ASSESSMENT: 1. Osteomyelitis of the left hand. 2. Type 2 diabetes mellitus. 3. End-stage renal disease, on hemodialysis. 4. Anemia of chronic disease. PLAN: Continue current treatment and antibiotics as per ID, and follow the surgery regarding postoperative care. The patient is for hemodialysis on 02/10/2017. Alverto Brower MD
[2017-02-10] MEDS: Enoxaparin 30 mg Syringe SC SCH (18:43)
[2017-02-10 23:43] VITALS: RESP 20
[2017-02-11 08:51] VITALS: O2SAT 100
[2017-02-11] MEDS: Enoxaparin 30 mg Syringe SC SCH (09:02)
--- NOTE | 2017-02-11 09:04 | CP.PCM.PN ---
Subjective - Date & Time of Evaluation Date of Evaluation: 02/11/17 Time of Evaluation: 09:02 - Subjective Subjective: patient states pain in his left thumb is improving. No new complaints. Objective - Vital Signs/Intake and Output Vital Signs (last 24 hours): Temp Pulse Resp BP Pulse Ox 97.9 F 65 20 151/75 H 100 02/11/17 08:50 02/11/17 08:50 02/11/17 08:50 02/11/17 08:50 02/11/17 08:50 - Medications Medications: Current Medications Acetaminophen (Tylenol 325mg Tab) 650 mg PO Q4 PRN PRN Reason: Fever >100.4 F Last Admin: 01/31/17 18:21 Dose: 650 mg Acetaminophen (Tylenol 325mg Tab) 650 mg PO Q6 PRN PRN Reason: Headache Last Admin: 02/08/17 18:11 Dose: 650 mg Alprazolam (Xanax) 0.25 mg PO HS [facility] Stop: 02/14/17 22:01 Last Admin: 02/10/17 21:45 Dose: 0.25 mg Aspirin (Ecotrin) 81 mg PO DAILY [facility] Last Admin: 02/10/17 17:16 Dose: 81 mg Atorvastatin Calcium (Lipitor) 20 mg PO HS [facility] Last Admin: 02/10/17 21:45 Dose: 20 mg Calcitriol (Rocaltrol) 0.25 mcg PO DAILY [facility] Last Admin: 02/10/17 10:24 Dose: 0.25 mcg Clonidine HCl (Catapres) 0.1 mg PO TID [facility] Last Admin: 02/10/17 17:07 Dose: 0.1 mg Clopidogrel Bisulfate (Plavix) 75 mg PO DAILY [facility] Last Admin: 02/04/17 09:27 Dose: 75 mg Clopidogrel Bisulfate (Plavix) 75 mg PO DAILY [facility] Last Admin: 02/10/17 17:16 Dose: 75 mg Enoxaparin Sodium (Lovenox) 30 mg SC DAILY [facility] PRN Reason: Protocol Last Admin: 02/10/17 18:43 Dose: 30 mg Glipizide (Glucotrol) 10 mg PO BID [facility] Last Admin: 02/10/17 17:08 Dose: 10 mg Vancomycin HCl 1 gm/ Sodium (Chloride) 250 mls @ 125 mls/hr IVPB TTS [facility] PRN Reason: Protocol Last Admin: 02/10/17 14:53 Dose: 125 mls/hr Ibuprofen (Motrin Tab) 600 mg PO Q6 PRN PRN Reason: Pain, moderate (4-7) Last Admin: 02/05/17 21:33 Dose: 600 mg Losartan Potassium (Cozaar) 50 mg PO DAILY [facility] Last Admin: 02/10/17 08:50 Dose: 50 mg Metoprolol Tartrate (Lopressor) 50 mg PO BID [facility] Last Admin: 02/10/17 17:09 Dose: 50 mg Ondansetron HCl (Zofran Inj) 4 mg IVP Q6 PRN PRN Reason: Nausea/Vomiting Last Admin: 02/07/17 11:18 Dose: 4 mg Sertraline HCl (Zoloft) 50 mg PO HS [facility] Last Admin: 02/10/17 21:45 Dose: 50 mg Sevelamer HCl (Renagel) 3,200 mg PO TID [facility] Last Admin: 02/10/17 17:10 Dose: 3,200 mg - Labs Labs: 02/10/17 05:30 02/10/17 05:30 PT 14.0 Seconds (9.8-13.1) H 02/07/17 06:30 INR 1.3 (0.9-1.2) H 02/07/17 06:30 APTT 38.2 Seconds (25.6-37.1) H 02/07/17 06:30 - Extremities Exam Additional comments: Left thumb: dressing changed. Incision site intact, no drainage, no erythema. splint reapplied, +ROM at MCP jt Assessment and Plan (1) Cellulitis of left thumb Assessment & Plan: POD#2 s/p partial amputation of left thumb (at IP joint) incision healing well no drainage orthopedically stable for d/c cont antibiotics per ID f/u Dr. Gutierrez within 1 week call for appointment d/w Dr. Gutierrez, agrees with above Status: Acute (2) Osteomyelitis of left hand Status: Acute
--- NOTE | 2017-02-11 12:33 | CP.PCM.PCO ---
Assessment/Plan - Assessment/Plan Assessment (Free Text): Pt stable, seen and cleared for d.c home by all consultants and Dr. Brower. Per Dr. Walsh, IV Vanco on TTS x 20 more doses. Rx given to SW who will reinstate HD.
--- NOTE | 2017-02-11 12:46 | CP.PCM.PN ---
Subjective - Date & Time of Evaluation Date of Evaluation: 02/11/17 Time of Evaluation: 12:44 - Subjective Subjective: Patient in bed. Is comfortable and no chest pain or shortness of breath. Appetite is normal Palpitation negative Objective - Vital Signs/Intake and Output Vital Signs (last 24 hours): Temp Pulse Resp BP Pulse Ox 97.9 F 65 20 151/75 H 100 02/11/17 08:50 02/11/17 09:01 02/11/17 08:50 02/11/17 09:01 02/11/17 08:50 - Medications Medications: Current Medications Acetaminophen (Tylenol 325mg Tab) 650 mg PO Q4 PRN PRN Reason: Fever >100.4 F Last Admin: 01/31/17 18:21 Dose: 650 mg Acetaminophen (Tylenol 325mg Tab) 650 mg PO Q6 PRN PRN Reason: Headache Last Admin: 02/08/17 18:11 Dose: 650 mg Alprazolam (Xanax) 0.25 mg PO HS [facility] Stop: 02/14/17 22:01 Last Admin: 02/10/17 21:45 Dose: 0.25 mg Aspirin (Ecotrin) 81 mg PO DAILY [facility] Last Admin: 02/11/17 09:01 Dose: 81 mg Atorvastatin Calcium (Lipitor) 20 mg PO HS [facility] Last Admin: 02/10/17 21:45 Dose: 20 mg Calcitriol (Rocaltrol) 0.25 mcg PO DAILY [facility] Last Admin: 02/11/17 09:05 Dose: 0.25 mcg Clonidine HCl (Catapres) 0.1 mg PO TID [facility] Last Admin: 02/11/17 08:59 Dose: 0.1 mg Clopidogrel Bisulfate (Plavix) 75 mg PO DAILY [facility] Last Admin: 02/04/17 09:27 Dose: 75 mg Clopidogrel Bisulfate (Plavix) 75 mg PO DAILY [facility] Last Admin: 02/11/17 09:02 Dose: 75 mg Enoxaparin Sodium (Lovenox) 30 mg SC DAILY [facility] PRN Reason: Protocol Last Admin: 02/11/17 09:02 Dose: 30 mg Glipizide (Glucotrol) 10 mg PO BID [facility] Last Admin: 02/11/17 09:01 Dose: 10 mg Vancomycin HCl 1 gm/ Sodium (Chloride) 250 mls @ 125 mls/hr IVPB TTS [facility] PRN Reason: Protocol Last Admin: 02/10/17 14:53 Dose: 125 mls/hr Ibuprofen (Motrin Tab) 600 mg PO Q6 PRN PRN Reason: Pain, moderate (4-7) Last Admin: 02/05/17 21:33 Dose: 600 mg Losartan Potassium (Cozaar) 50 mg PO DAILY [facility] Last Admin: 02/11/17 09:00 Dose: 50 mg Metoprolol Tartrate (Lopressor) 50 mg PO BID [facility] Last Admin: 02/11/17 09:01 Dose: 50 mg Ondansetron HCl (Zofran Inj) 4 mg IVP Q6 PRN PRN Reason: Nausea/Vomiting Last Admin: 02/07/17 11:18 Dose: 4 mg Sertraline HCl (Zoloft) 50 mg PO HS [facility] Last Admin: 02/10/17 21:45 Dose: 50 mg Sevelamer HCl (Renagel) 3,200 mg PO TID [facility] Last Admin: 02/11/17 09:04 Dose: 3,200 mg - Labs Labs: 02/10/17 05:30 02/10/17 05:30 PT 14.0 Seconds (9.8-13.1) H 02/07/17 06:30 INR 1.3 (0.9-1.2) H 02/07/17 06:30 APTT 38.2 Seconds (25.6-37.1) H 02/07/17 06:30 - Constitutional Appears: No Acute Distress - ENT Exam ENT Exam: Mucous Membranes Moist - Respiratory Exam Respiratory Exam: absent: Chest Wall Tenderness, Rales - Cardiovascular Exam Cardiovascular Exam: Irregular Rhythm. absent: JVD, Rubs - GI/Abdominal Exam GI & Abdominal Exam: Soft, Normal Bowel Sounds. absent: Distended - Extremities Exam Extremities Exam: absent: Calf Tenderness - Back Exam Back Exam: absent: CVA tenderness (L), CVA tenderness (R) - Neurological Exam Neurological Exam: Alert - Psychiatric Exam Psychiatric exam: Normal Affect - Skin Skin Exam: absent: Cyanosis Assessment and Plan (1) CKD (chronic kidney disease) requiring chronic dialysis Assessment & Plan: End stage renal disease patient completed hemodialysis yesterday and tolerated well. Status post partial amputation of the left thumb because of the osteomyelitis as noted by the surgery. Hyperkalemia corrected after dialysis yesterday serum potassium is normal 4.8 Anemia patient receiving EPO Hyperphosphatemia patient receiving binders Secondary hyperparathyroidism patient receiving calcitriol Hypertension patient on medication and controlled Chronic A. fib stable Diabetes mellitus as per primary team. Antibiotics as per primary team. Patient will continue to receive vancomycin as outpatient as discussed with the primary physician for 2 weeks Status: Acute (2) Osteomyelitis Status: Acute
--- NOTE | 2017-02-11 12:56 | CP.PCM.PN ---
Subjective - Date & Time of Evaluation Date of Evaluation: 02/11/17 Time of Evaluation: 12:56 - Subjective Subjective: ID Note- Pt. seen and examined today with his at his bedisde. pt. is being d/c home today . s/p left distal thumb amputation pod #2. states he is cleared to go home by the surgeon and will f/u with him as outpatient. Objective - Vital Signs/Intake and Output Vital Signs (last 24 hours): Temp Pulse Resp BP Pulse Ox 97.9 F 65 20 151/75 H 100 02/11/17 08:50 02/11/17 09:01 02/11/17 08:50 02/11/17 09:01 02/11/17 08:50 - Medications Medications: Current Medications Acetaminophen (Tylenol 325mg Tab) 650 mg PO Q4 PRN PRN Reason: Fever >100.4 F Last Admin: 01/31/17 18:21 Dose: 650 mg Acetaminophen (Tylenol 325mg Tab) 650 mg PO Q6 PRN PRN Reason: Headache Last Admin: 02/08/17 18:11 Dose: 650 mg Alprazolam (Xanax) 0.25 mg PO [facility] Stop: 02/14/17 22:01 Last Admin: 02/10/17 21:45 Dose: 0.25 mg Aspirin (Ecotrin) 81 mg PO DAILY [facility] Last Admin: 02/11/17 09:01 Dose: 81 mg Atorvastatin Calcium (Lipitor) 20 mg PO [facility] Last Admin: 02/10/17 21:45 Dose: 20 mg Calcitriol (Rocaltrol) 0.25 mcg PO DAILY [facility] Last Admin: 02/11/17 09:05 Dose: 0.25 mcg Clonidine HCl (Catapres) 0.1 mg PO TID [facility] Last Admin: 02/11/17 08:59 Dose: 0.1 mg Clopidogrel Bisulfate (Plavix) 75 mg PO DAILY [facility] Last Admin: 02/04/17 09:27 Dose: 75 mg Clopidogrel Bisulfate (Plavix) 75 mg PO DAILY [facility] Last Admin: 02/11/17 09:02 Dose: 75 mg Enoxaparin Sodium (Lovenox) 30 mg SC DAILY [facility] PRN Reason: Protocol Last Admin: 02/11/17 09:02 Dose: 30 mg Glipizide (Glucotrol) 10 mg PO BID [facility] Last Admin: 02/11/17 09:01 Dose: 10 mg Vancomycin HCl 1 gm/ Sodium (Chloride) 250 mls @ 125 mls/hr IVPB TTS GRISELDA PRN Reason: Protocol Last Admin: 02/10/17 14:53 Dose: 125 mls/hr Ibuprofen (Motrin Tab) 600 mg PO Q6 PRN PRN Reason: Pain, moderate (4-7) Last Admin: 02/05/17 21:33 Dose: 600 mg Losartan Potassium (Cozaar) 50 mg PO DAILY [facility] Last Admin: 02/11/17 09:00 Dose: 50 mg Metoprolol Tartrate (Lopressor) 50 mg PO BID [facility] Last Admin: 02/11/17 09:01 Dose: 50 mg Ondansetron HCl (Zofran Inj) 4 mg IVP Q6 PRN PRN Reason: Nausea/Vomiting Last Admin: 02/07/17 11:18 Dose: 4 mg Sertraline HCl (Zoloft) 50 mg PO HS [facility] Last Admin: 02/10/17 21:45 Dose: 50 mg Sevelamer HCl (Renagel) 3,200 mg PO TID [facility] Last Admin: 02/11/17 09:04 Dose: 3,200 mg - Labs Labs: - Additional Findings Additional findings: - Constitutional Appears: No Acute Distress - Head Exam Head Exam: ATRAUMATIC - ENT Exam ENT Exam: Normal Oropharynx - Neck Exam Neck exam: Positive for: Full Rom - Respiratory Exam Respiratory Exam: Clear to Auscultation Bilateral, NORMAL BREATHING PATTERN - Cardiovascular Exam Cardiovascular Exam: RRR, +S1, +S2 - GI/Abdominal Exam GI & Abdominal Exam: Normal Bowel Sounds, Soft Additional comments: ND, NT - Extremities Exam Additional comments: left distal thumb wrapped in gauze, no discharge seen on gauze. - Neurological Exa Neurological exam: Alert, Oriented x 3 Laboratory Results - last 72 hr 02/03/17 02/08/17 02/09/17 12:04 21:46 05:38 WBC RBC Hgb Hct MCV MCH MCHC RDW Plt Count Sodium Potassium Chloride Carbon Dioxide Anion Gap BUN Creatinine Est GFR ( Amer) Est GFR (Non-Af Amer) POC Glucose (mg/dL) 159 H 161 H Random Glucose Calcium PTH Intact Whole Molec 114 H Vancomycin Trough 02/09/17 02/09/17 02/09/17 05:40 10:46 14:55 WBC RBC Hgb Hct MCV MCH MCHC RDW Plt Count Sodium 140 Potassium 4.1 Chloride 96 L Carbon Dioxide 27 Anion Gap 21 H BUN 51 H Creatinine 4.9 H Est GFR ( Amer) 15 Est GFR (Non-Af Amer) 12 POC Glucose (mg/dL) 118 H 103 Random Glucose 154 H Calcium 9.4 PTH Intact Whole Molec Vancomycin Trough 02/09/17 02/10/17 02/10/17 21:49 05:17 05:30 WBC RBC Hgb Hct MCV MCH MCHC RDW Plt Count Sodium Potassium Chloride Carbon Dioxide Anion Gap BUN Creatinine Est GFR ( Amer) Est GFR (Non-Af Amer) POC Glucose (mg/dL) 217 H 157 H Random Glucose Calcium PTH Intact Whole Molec Vancomycin Trough 14.8 H 02/10/17 02/10/17 02/10/17 05:30 05:30 10:39 WBC 5.9 RBC 3.23 L Hgb 10.0 L Hct 31.0 L MCV 96.0 H MCH 30.9 MCHC 32.2 L RDW 15.5 H Plt Count 196 Sodium 139 Potassium 4.2 Chloride 98 Carbon Dioxide 25 Anion Gap 20 BUN 70 H Creatinine 6.3 H Est GFR ( Amer) 11 Est GFR (Non-Af Amer) 9 POC Glucose (mg/dL) 219 H Random Glucose 164 H Calcium 9.1 PTH Intact Whole Molec Vancomycin Trough 02/10/17 02/10/17 02/11/17 15:56 21:22 05:47 WBC RBC Hgb Hct MCV MCH MCHC RDW Plt Count Sodium Potassium Chloride Carbon Dioxide Anion Gap BUN Creatinine Est GFR ( Amer) Est GFR (Non-Af Amer) POC Glucose (mg/dL) 151 H 233 H 164 H Random Glucose Calcium PTH Intact Whole Molec Vancomycin Trough 02/11/17 02/11/17 11:15 15:49 WBC RBC Hgb Hct MCV MCH MCHC RDW Plt Count Sodium Potassium Chloride Carbon Dioxide Anion Gap BUN Creatinine Est GFR ( Amer) Est GFR (Non-Af Amer) POC Glucose (mg/dL) 249 H 248 H Random Glucose Calcium PTH Intact Whole Molec Vancomycin Trough Microbiology 02/09/17 19:40 Other: Please Indicate Gram Stain - Final 02/09/17 19:40 Other: Please Indicate Wound Culture - Preliminary NO GROWTH AFTER 24 HOURS 01/29/17 17:30 Blood Blood Culture - Final NO GROWTH AFTER 5 DAYS 01/29/17 17:30 Blood Gram Stain - Final TEST NOT PERFORMED 01/29/17 17:30 Finger Gram Stain - Final 01/29/17 17:30 Finger Wound Culture - Final Staphylococcus Aureus Assessment and Plan (1) CKD (chronic kidney disease) requiring chronic dialysis Status: Acute (2) Cellulitis and abscess Status: Acute (3) Osteomyelitis Status: Acute (4) ESRD on hemodialysis Status: Acute (5) Diabetic neuropathy Status: Acute - Assessment and Plan (Free Text) Assessment: A/P- 61 year old male with ESRD On HD, DM II, HTN, neuropahty with auto infection with naul biting admitted with left distal thumb infection. afebrile normal wbc count left thumb wound cx- MRSA blood cx- neg x 2 high ESR MRI report- left thumb distal phalanx OM wound cx from OR- negative so far Plan- advise to continue with IV vanco post Hd days. # 7 doses so far since post HD days. keep trough <15. monitor hearing while on vancomycin. advise 20 more doses of IV vancomycin 1 gram post HD days and to monitor trough once a week and keep less than 15. patient to f/u with the surgeon and his pcp in 1 week. advised to also f/u with me in 2 weeks . all above d/w patient and he verbalizes full understanding of all above.
[2017-02-11 16:13] VITALS: BP 158/74
[2017-02-11 16:53] VITALS: PULSE 62; TEMP 97.2
--- NOTE | 2017-02-12 06:16 | DS ---
REASON FOR ADMISSION: This is a 61-year-old male with history of end-stage renal disease, on hemodialysis, was admitted for an infection of the left hand. COURSE OF HOSPITALIZATION: Patient was admitted to medical floor and he had imaging studies for left hand as well as hand surgery consultation. Patient was found to have osteomyelitis of the left thumb. The patient underwent partial amputation of the left thumb. Throughout patient's admission, he was on IV antibiotics as per ID recruiting operations consultant. Patient was also continued on hemodialysis during this admission as per Dr. Rodriguez. The patient was discharged home in a stable condition, to follow up with Dr. Gutierrez, hand surgeon, as well as to continue IV vancomycin post hemodialysis x2 more weeks. FINAL DIAGNOSES: 1. Osteomyelitis of the left hand status post partial amputation. 2. End-stage renal disease, on hemodialysis. 3. Hypertension. 4. Degenerative spine disease with radiculopathy and difficulty ambulation. Chilango MD Inocente
== END 2017-02-11 17:40 | disposition home health service (06) | DRG 623 ==
LOC: H.ER 16:17 → H.ERHOLD 18:59 → H.MEDSURG1 20:31
PROVIDERS: ADMIT Internal Medicine; ATTEND Internal Medicine
PROC: 5A1D70Z Performance of Urinary Filtration, Intermittent, Less than 6 Hours Per Day (ICD-10-PCS; 2017-02-01)
PROC: 5A1D70Z Performance of Urinary Filtration, Intermittent, Less than 6 Hours Per Day (ICD-10-PCS; 2017-02-01)
PROC: 5A1D70Z Performance of Urinary Filtration, Intermittent, Less than 6 Hours Per Day (ICD-10-PCS; 2017-02-01)
PROC: 5A1D70Z Performance of Urinary Filtration, Intermittent, Less than 6 Hours Per Day (ICD-10-PCS; 2017-02-01)
PROC: 0HXGXZZ Transfer Left Hand Skin, External Approach (ICD-10-PCS; 2017-02-09)
PROC: 0X6M0Z3 Detachment at Left Thumb, Low, Open Approach (ICD-10-PCS; principal; 2017-02-09 13:00)
DX: E11.69 Type 2 diabetes mellitus with other specified complication (principal); M86.142 Other acute osteomyelitis, left hand; I13.2 Hypertensive heart and chronic kidney disease with heart failure and with stage 5 chronic kidney disease, or end stage renal disease; E11.22 Type 2 diabetes mellitus with diabetic chronic kidney disease; E11.40 Type 2 diabetes mellitus with diabetic neuropathy, unspecified; N18.6 End stage renal disease; I48.2 Chronic atrial fibrillation; E87.2 Acidosis; L03.114 Cellulitis of left upper limb; E11.319 Type 2 diabetes mellitus with unspecified diabetic retinopathy without macular edema; N25.81 Secondary hyperparathyroidism of renal origin; E83.39 Other disorders of phosphorus metabolism; E87.5 Hyperkalemia; D50.0 Iron deficiency anemia secondary to blood loss (chronic); D51.0 Vitamin B12 deficiency anemia due to intrinsic factor deficiency; I50.9 Heart failure, unspecified; D63.1 Anemia in chronic kidney disease; Z99.2 Dependence on renal dialysis; Z79.4 Long term (current) use of insulin; Z79.84 Long term (current) use of oral hypoglycemic drugs; E78.00 Pure hypercholesterolemia, unspecified; E78.5 Hyperlipidemia, unspecified; F32.9 Major depressive disorder, single episode, unspecified; F41.9 Anxiety disorder, unspecified; G47.30 Sleep apnea, unspecified; I25.10 Atherosclerotic heart disease of native coronary artery without angina pectoris; Z87.01 Personal history of pneumonia (recurrent); K21.9 Gastro-esophageal reflux disease without esophagitis; K59.00 Constipation, unspecified; Z86.010 Personal history of colon polyps; L03.012 Cellulitis of left finger; M19.90 Unspecified osteoarthritis, unspecified site; M54.10 Radiculopathy, site unspecified; M77.9 Enthesopathy, unspecified; N40.0 Benign prostatic hyperplasia without lower urinary tract symptoms; Z53.9 Procedure and treatment not carried out, unspecified reason; Z79.02 Long term (current) use of antithrombotics/antiplatelets; Z79.82 Long term (current) use of aspirin; Z79.899 Other long term (current) drug therapy; Z86.73 Personal history of transient ischemic attack (TIA), and cerebral infarction without residual deficits; Z86.74 Personal history of sudden cardiac arrest; Z87.440 Personal history of urinary (tract) infections; R15.9 Full incontinence of feces; R19.7 Diarrhea, unspecified; R79.89 Other specified abnormal findings of blood chemistry

== ENCOUNTER 2017-06-07 08:58 | Day surgery (SDC) | payer MEDICARE ==
[2017-06-01 12:21] VITALS: BMI 27.6
[2017-06-07] MEDS ORDERED: Maxitrol Opht Susp ONE (09:13)
[2017-06-07] MEDS ORDERED: Tetracaine 0.5% Ophth 2 ML BOTTLE ONE (09:13)
[2017-06-07] MEDS ORDERED: BSS 15 ML 45 ML IR ONE (09:14)
[2017-06-07] MEDS ORDERED: Pilocarpine 1% Opht Soln ONE (09:14)
[2017-06-07] MEDS ORDERED: EPINEPHrine 1 mg/ml (1:1000) Inj ONE (09:14)
[2017-06-07] MEDS ORDERED: CA CL/K CL/NA CL 500 ML IR ONE (09:14)
[2017-06-07] MEDS ORDERED: Lidocaine 1% 20 MG/2 ML PF AMP ONE (09:14)
[2017-06-07] MEDS ORDERED: Tropicamide 1% Opht 150 DROP/15 ML OS SCH (09:15)
[2017-06-07] MEDS ORDERED: Phenylephrine 2.5% Opht Soln OS SCH (09:15)
[2017-06-07] MEDS ORDERED: Chondroitin/Hyaluronate Opth Syringe KIT (0.55 ml-0.5 ml) IO ONE (09:15)
[2017-06-07] MEDS ORDERED: Flurbiprofen 0.03% Opht SOLN OS SCH (09:15)
[2017-06-07] MEDS ORDERED: Povidone Iodine 5% Opht SOLUTION ONE (09:16)
[2017-06-07] MEDS ORDERED: Phenylephrine 2.5% Opht Soln OS ONE (09:30)
[2017-06-07] MEDS ORDERED: Tropicamide 1% Opht 150 DROP/15 ML LEFTEYE ONE (09:30)
[2017-06-07] MEDS ORDERED: Flurbiprofen 0.03% Opht SOLN OS ONE (09:30)
[2017-06-07 10:18] LABS: CALCIUM 9.4 mg/dL (8.4-10.2)
[2017-06-07] MEDS ORDERED: Midazolam 2 MG/2 ML VIAL ONE (11:28)
[2017-06-07] MEDS ORDERED: Mepivacaine HCl 2% (20ml) Inj ONE (11:40)
[2017-06-07] MEDS ORDERED: Bupivacaine HCl 0.5% PF (30 ml) Inj ONE (11:41)
[2017-06-07] MEDS ORDERED: Hyaluronidase 200 UNITS/ML VIAL ONE (11:41)
[2017-06-07] MEDS ORDERED: Sodium Chloride 0.9% 500 ML IV ONE (12:12)
[2017-06-07 13:14] VITALS: RESP 18
[2017-06-07 13:15] VITALS: O2SAT 100
[2017-06-07 13:38] VITALS: BP 114/78; PULSE 79; TEMP 97.2
--- NOTE | 2017-06-09 09:19 | OP ---
PROCEDURE DATE : 06/07/2017 SURGEON: GEORGIANA CERVANTES MD ANESTHESIOLOGIST: ANSON SEBASTIAN MD ANESTHESIA: LOCAL / IV SEDATION PREOPERATIVE DIAGNOSIS: CATARACT LEFT EYE. POSTOPERATIVE DIAGNOSIS: CATARACT LEFT EYE. OPERATION: CLEAR CORNEAL PHACOEMULSIFICATION WITH LENS IMPLANT LEFT EYE. PREPARATION AND PROCEDURE: After the patient was prepped and draped in the usual manner for sterile ophthalmic surgery, local IV sedation was administered ; eye seals were applied to the upper and lower lid margins and an adult wire lid speculum was placed within the lids. Under microsurgical control, a two- step clear corneal incision was made into the anterior chamber. The initial incision was perpendicular to the corneal plane. The second incision with the keratome was placed at a 45-degree angle to the first incision. One cc of one percent Xylocaine MPF was instilled into the anterior chamber to achieve proper intraocular anesthesia. At this time, the Viscoelastic was injected into the anterior chamber for protection of the endothelium and for maintenance of the chamber depth. A 360-degree continuous curvilinear capsulorrhexis was performed using a pre-bent 25-gauge needle. Hydrodissection and hydrodelineation were performed using a Hallman cannula and balanced salt solution. Utilizing the tip of the Hallman cannula, the nucleus was rotated freely within the capsular bag. A standard one-handed phacoemulsification was utilized at this time for sculpting and rotating of the nucleus. The nucleus was fragmented in its entirety and aspirated without any consequence. A standard I&A was carried out for the residual cortical material. No residual material was noted within the capsular bag. The posterior capsule was noted to be clear. Additional Viscoelastic was injected into the capsular bag in preparation for lens implantation. After this has been satisfactorily achieved the intraocular lens injected through the corneal incision into the capsular bag. The intraocular lens was manipulated until it was properly oriented and the Viscoelastic was evacuated from the capsular bag and anterior chamber. The anterior chamber was reformed with balanced salt solution. The corneal incision was irrigated with BSS. The intraocular pressure was found to be within normal limits. This terminated the procedure. The speculum and lid drapes were removed. TobraDex ophthalmic suspension and Pilocarpine 1% drops one drop was applied to the eye. POSTOPERATIVE CONDITION: The patient was brought to the Post anesthesia Recovery area with stable vital signs. DGEORGIANA CASH MD
== END 2017-06-07 13:50 | disposition home or self-care (01) ==
LOC: H.OPSURG 08:58
PROVIDERS: ATTEND Ophthalmology
DX: H25.12 Age-related nuclear cataract, left eye (principal); I48.91 Unspecified atrial fibrillation; I50.9 Heart failure, unspecified; E11.22 Type 2 diabetes mellitus with diabetic chronic kidney disease; I13.2 Hypertensive heart and chronic kidney disease with heart failure and with stage 5 chronic kidney disease, or end stage renal disease; N18.6 End stage renal disease; Z99.2 Dependence on renal dialysis
CPT/HCPCS: 36415; 66984; 80048; 82948; J0171; J2250; J3010; J3470; J7040; V2632

== ENCOUNTER 2017-06-21 09:39 | Inpatient (IN) | payer MEDICARE ==
[2017-06-21 09:39] VITALS: PULSE 66; BMI 28.2
[2017-06-21] MEDS ORDERED: Sodium Chloride 0.9% 250 ML IV ONE (10:28)
--- NOTE | 2017-06-21 10:28 | ED PDOC ---
Upper Extremity Pain/Injury Time Seen by Provider: 06/21/17 10:15 Chief Complaint (Nursing): Fever Chief Complaint (Provider): Left Arm Pain History Per: Patient, Family History/Exam Limitations: no limitations Onset/Duration Of Symptoms: Hrs Current Symptoms Are (Timing): Still Present Severity: Moderate Additional History Per: Patient, Family Additional Complaint(s): pt p/w + sudden onset of fever, Tmax 102, while at eye center ([facility]) while patient was awaiting for right eye cataract surgery today; pt was subsequently instructed to come down to ED for further eval/exam; pt states + lightheadedness/dizziness, + weakness today; pt states he awoke feeling fatigued; pt states no appetite, + slight chills, no sweating, no CP/Sob, no palpitations, no abd pain, no n/v, no numbness/tingling, no bowel changes, (pt does not urinate - from ESRD), no LOC, no fall/trauma/sick contact , no travel; pt recently had his left eye cataract surgery performed ~ 2 weeks ago (did well); pt also received his dialysis (yesterday, Tue//Tue); pt denied other complaints; pt is here for further eval. pt denied bodyaches, pt denied rashes, no coughing/sore throat PCP: DR Brower Nephrology: Dr Ward? Past Medical History Reviewed: Historical Data, Nursing Documentation, Vital Signs Vital Signs: Last Vital Signs Temp 99.7 F H 06/21/17 09:43 Pulse 81 06/21/17 09:43 Resp 16 06/21/17 09:43 BP 171/80 H 06/21/17 09:43 Pulse Ox 97 06/21/17 09:43 - Medical History PMH: Anemia, Anxiety, Arthritis, Atrial Fibrillation, CAD, Cardia Arrhythmia, CHF, Colonic Polyps (2012), Depression, Diabetes, Fractures (Right foot surgery) , HTN, Hypercholesterolemia, Hyperlipidemia, Pneumonia, End Stage Renal Disease (with dialysis), Chronic Kidney Disease, Sleep Apnea, TIA (2010) Denies: COPD, Hypothyroidism, Rheumatoid Arthritis - Surgical History Surgical History: Endoscopy - Family History Family History: States: Unknown Family Hx - Living Arrangements Living Arrangements: Other (homeless) - Social History Alcohol: > 2 Drinks/Day - Immunization History Hx Tetanus Toxoid Vaccination: No Hx Influenza Vaccination: Yes (2013) Hx Pneumococcal Vaccination: Yes (2013) - Home Medications Home Medications: Ambulatory Orders Medication Instructions Recorded Metoprolol Tartrate [Lopressor] 50 mg PO BID #0 tab 04/12/15 Sertraline [Zoloft] 50 mg PO HS 08/09/16 Sevelamer Carbonate [Renvela] 3,200 mg PO TID 08/09/16 Atorvastatin [Lipitor] 20 mg PO HS 09/14/16 Clopidogrel [Plavix] 75 mg PO DAILY tab 09/23/16 Alprazolam 0.5 mg PO HS 11/03/16 Aspirin [Ecotrin] 81 mg PO DAILY 11/03/16 Calcitriol 0.25 mcg PO DAILY 11/03/16 Glipizide [Glucotrol] 10 mg PO BID 01/29/17 Insulin Glargine,Hum.rec.anlog 8 - 12 unit SQ HS 06/07/17 [Toujeo Solostar] Cholecalciferol [Vitamin D 1000 IU] 1,000 unit PO DAILY 06/21/17 Insulin Lispro [humALOG] 4 - 5 unit SC AC 06/21/17 Ketorolac Tromethamine [Acular] 1 drop RIGHTEYE TID 06/21/17 Losartan [Cozaar] 50 mg PO DAILY 06/21/17 Ofloxacin Ophth 0.3% [Ocuflox 1 drop RIGHTEYE QID 06/21/17 Ophth 0.3%] PrednisoLONE 1% [Pred Forte 1% 1 drop RIGHTEYE QID 06/21/17 Opht Susp] Ranitidine HCl [Zantac] 150 mg PO BID 06/21/17 cloNIDine [Catapres] 0.2 mg PO TID 06/21/17 oxyCODONE/Acetaminophen [Percocet 1 tab PO TTS 06/21/17 5/325 mg Tab] - Allergies Allergies/Adverse Reactions: Allergies Allergy/AdvReac Type Severity Reaction Status Date / Time ciprofloxacin Allergy SWELLING Verified 06/21/17 10:25 Penicillins Allergy ANAPHYLAXIS Verified 06/21/17 10:25 propofol Allergy ANAPHYLAXIS Verified 06/21/17 10:25 vitamin K2 Allergy SHORTNESS Verified 06/21/17 10:25 OF BREATH diphenhydramine HCl AdvReac ITCHING Verified 06/21/17 10:25 [From Benadryl] surgical tape Allergy REDNESS Uncoded 06/21/17 10:25 Review of Systems ROS Statement: Except As Marked, All Systems Reviewed And Found Negative Constitutional: Positive for: Fever, Weakness, Malaise. Negative for: Chills, Sweats Eyes: Negative for: Pain ENT: Negative for: Ear Pain, Nose Pain, Throat Pain, Throat Swelling Cardiovascular: Negative for: Chest Pain, Palpitations Respiratory: Negative for: Cough, Shortness of Breath, SOB with Exertion, Pleuritic Pain Gastrointestinal: Negative for: Nausea, Vomiting, Abdominal Pain, Constipation, Other (bowel changes) Genitourinary Male: Negative for: Dysuria, Hematuria, Other (urinary changes) Musculoskeletal: Negative for: Neck Pain, Arm Pain (left), Back Pain, Other (no recent trauma) Skin: Negative for: Rash Neurological: Positive for: Weakness, Dizziness. Negative for: Altered Mental Status, Headache Psych: Negative for: Suicidal ideation (NO homicidal ideation) Physical Exam - Reviewed Nursing Documentation Reviewed: Yes Vital Signs Reviewed: Yes - Physical Exam Appears: Positive for: Well, Non-toxic, No Acute Distress, Uncomfortable (alert/ awake, uncomfortable, weakness/fatigued, NAD, cooperative; resting in bed) Head Exam: Positive for: ATRAUMATIC, NORMAL INSPECTION, NORMOCEPHALIC Skin: Positive for: Warm, Dry, Pallor (cap refill ~ 1sec, no ulcerations, no petechiae, mild pallor, no lesions/rashes noted) Eye Exam: Positive for: Normal appearance, EOMI, PERRL, Other (no photophobia, sclera anicteric). Negative for: Nystagmus ENT: Positive for: Pharynx Is (dry oral mucosa, no drooling/stridor, no exudate/ lesions, no dysphonia) Neck: Positive for: Normal, Painless ROM, Supple, Trachea Midline. Negative for : Decreased ROM Cardiovascular/Chest: Positive for: Regular Rate, Rhythm, Chest Non Tender. Negative for: Murmur Respiratory: Positive for: Normal Breath Sounds, Other (CTA b/l, no w/r/r, no accessory muscle use noted, no tachypenia). Negative for: Respiratory Distress Gastrointestinal/Abdominal: Positive for: Normal Exam (well nourished male, no focal tenderness, no masses/rebound/guarding), Bowel Sounds, Soft, Other (well nourished male, no focal tenderness, no escobar's sign, no mcburney's point tenderness, no masses/rebound/guarding/rigidity). Negative for: Tenderness Back: Positive for: Normal Inspection. Negative for: L CVA Tenderness, R CVA Tenderness, Vertebral Tenderness, Decreased ROM Extremity: Positive for: Normal ROM, Other (+ left arm dialysis shunt/shiely is noted with good thrill, no overlaying skin erythema is noted, no lesions noted; no gross deformities noted, strength 5/5 grossly intact in all limbs, neurovasc intact b/l). 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, Oriented (x2 (not to time/ date)) - Laboratory Results Result Diagrams: 06/21/17 11:02 06/21/17 11:02 Interpretation Of Abnormal: anemia; elevated BUN/creat (chronic ESRD) - ECG ECG: Positive for: Interpreted By Me, Viewed By Me Interpretation Of ECG: Atrial Fib at 75 bpm, LAD, no ectopy, poor baseline, diffuse low voltage inf leads, inverted T in leads L, non-specific st-t changes V1-3, ABNL EKG; unchanged compare with old ekg 01/2017 O2 Sat by Pulse Oximetry: 97 (RA) Pulse Ox Interpretation: Normal - Radiology X-Ray: Interpreted by Me, Viewed By Me - Progress ED Course And Treament: HISTORY: jaundice, fever/weakness/dizziness COMPARISON: CT scan the abdomen and pelvis dated 08/09/2016. TECHNIQUE: Sonographic evaluation of the abdomen. FINDINGS: LIVER: Enlarged, measuring 21.3 cm. Normal echogenicity of the liver parenchyma. No mass. No intrahepatic bile duct dilatation. GALLBLADDER: Unremarkable. No gallstones. COMMON BILE DUCT: Measures 5 mm. No stones. No dilatation. PANCREAS: Limited evaluation due to overlying bowel gas RIGHT KIDNEY: Measures 10.7 x 5.3 x 4.6cm. Upper pole cyst measuring 1.3 x 1.3 x 0.9 cm. Lower pole cyst measuring 1.4 x 1.3 x 1.5 cm. Normal echogenicity. No calculus, mass, or hydronephrosis. LEFT KIDNEY: Measures 11.5 x 5.3 x 5.0cm. Lower pole cyst measuring 0.6 x 0.6 x 0.4 cm. Normal echogenicity. No calculus, mass, or hydronephrosis. SPLEEN: Enlarged, measuring 16.0 x 6.5 x 14.2 cm. Small calcification measuring 0.7 x 0.7 x 0.7 cm. AORTA: No aneurysmal dilatation. IVC: Unremarkable. OTHER FINDINGS: None. IMPRESSION: Hepatosplenomegaly, similar to prior CT scan. Bilateral renal cysts. HISTORY: fever/weakness COMPARISON: Chest radiograph dated 02/04/2017. FINDINGS: LUNGS: No active pulmonary disease. PLEURA: No significant pleural effusion identified, no pneumothorax apparent. CARDIOVASCULAR: Atherosclerotic aortic calcifications. Cardiomediastinal silhouette stably enlarged. OSSEOUS STRUCTURES: Unchanged. VISUALIZED UPPER ABDOMEN: Normal. OTHER FINDINGS: None. IMPRESSION: No active disease. 1230p - pt is currently comfortable, NAD, patient is awaiting further diagnostic results 1300 - pt is made aware of his medical results agrees with admission/observation 1345 - I spoke to Dr Brower, made aware, agrees with admission/observation, would like to send flu test Re-evaluation Time: 14:00 Condition: Improving,but remains with symptoms - Physician Consult Information Time Consulting Physican Contacted: 13:45 Physician Contacted: Alverto Brower Medical Decision Making Medical Decision Making: Time: 9:43 Impression: fever, ESRD Differential Diagnosis: I have consider all the differential diagnosis regarding pt's chief medical complaints/clinical findings, including but are not limited to: fever, ESRD Plan:(Include these two) - supportive care - observe * Blood type and screen, VBG Shock Panel * EKG * Labs * CBC * Partial Thromboplastin Time * Prothrombin Time * Motrin 400 mg PO * IV FLuids * Blood Culture * Chest X-Ray * Ultrasound Scribe Attestation: Documented by Sagar Diez acting as a scribe for Paul Davila MD. Scribe Attestation: All medical record entries made by the Scribe were at my direction and personally dictated by me. I have reviewed the chart and agree that the record accurately reflects my personal performance of the history, physical exam, medical decision making, and the department course for this patient. I have also personally directed, reviewed, and agree with the discharge instructions and disposition. Disposition - Clinical Impression Clinical Impression: Fever, End stage renal disease, Weakness - Patient ED Disposition Is Patient to be Admitted: Yes Discussed With DrRosa: Alverto Brower Doctor Will See Patient In The: Hospital Counseled Patient/Family Regarding: Studies Performed, Diagnosis - Disposition Disposition Time: 12:35 Condition: STABLE - Pt Status Changed To: Hospital Disposition Of: Observation
[2017-06-21 10:57] LABS: VENOUS BLOOD GAS BASE EXCESS 6.7 mmol/L (0.0-2.0); VENOUS BLOOD GAS PCO2 56 mmHg (40-60); VENOUS BLOOD GAS PO2 45 mm/Hg (30-55); VENOUS BLOOD PH 7.38 (7.32-7.43)
--- NOTE | 2017-06-21 11:07 | RAD ---
HISTORY: fever/weakness COMPARISON: Chest radiograph dated 02/04/2017. FINDINGS: LUNGS: No active pulmonary disease. PLEURA: No significant pleural effusion identified, no pneumothorax apparent. CARDIOVASCULAR: Atherosclerotic aortic calcifications. Cardiomediastinal silhouette stably enlarged. OSSEOUS STRUCTURES: Unchanged. VISUALIZED UPPER ABDOMEN: Normal. OTHER FINDINGS: None. IMPRESSION: No active disease.
[2017-06-21 11:14] LABS: BASO % 0.6 % (0.0-2.0); EOS # 0.1 K/uL (0.0-0.7); EOS % 1.8 % (0.0-4.0); HEMOGLOBIN 9.6 g/dL (12.0-18.0); LYMPH # 0.5 K/uL (1.0-4.3); LYMPH % 8.5 % (20.0-40.0); MEAN CELL VOLUME 94.8 fl (80.0-94.0); MEAN CORPUSCULAR HEMOGLOBIN 31.2 pg (27.0-31.0); MEAN CORPUSCULAR HGB CONC 32.9 g/dL (33.0-37.0); MEAN PLATELET VOLUME 9.9 fl (7.2-11.7); MONO # 0.7 K/uL (0.0-0.8); MONO % 11.6 % (0.0-10.0); NEUT # 4.8 K/uL (1.8-7.0); NEUT % 77.5 % (50.0-75.0); NRBC % 0.1 % (0.0-0.0); PLATELET COUNT 69 K/uL (130-400); RBC 3.09 Mil/uL (4.40-5.90); RED CELL DISTRIBUTION WIDTH 16.7 % (11.5-14.5); WHITE BLOOD COUNT 6.2 K/uL (4.8-10.8)
[2017-06-21 11:23] LABS: CALCIUM 9.5 mg/dL (8.4-10.2)
[2017-06-21 11:26] LABS: INR 1.1 (0.9-1.2); PARTIAL THROMBOPLASTIN TIME 33.9 Seconds (25.6-37.1); PROTHROMBIN TIME 12.3 Seconds (9.8-13.1)
[2017-06-21 12:19] LABS: ANISOCYTOSIS SLIGHT; BASOPHIL 1 % (0-2); EOSINOPHIL 2 % (0-7); HYPOCHROMIC MODERATE; LYMPHOCYTE 11 % (20-50); MONOCYTE 9 % (0-10); NEUTROPHIL 77 % (42-75); PLATELET ESTIMATE DECREASED (NORMAL); TOTAL CELLS COUNTED 100
--- NOTE | 2017-06-21 12:56 | US ---
HISTORY: jaundice, fever/weakness/dizziness COMPARISON: CT scan the abdomen and pelvis dated 08/09/2016. TECHNIQUE: Sonographic evaluation of the abdomen. FINDINGS: LIVER: Enlarged, measuring 21.3 cm. Normal echogenicity of the liver parenchyma. No mass. No intrahepatic bile duct dilatation. GALLBLADDER: Unremarkable. No gallstones. COMMON BILE DUCT: Measures 5 mm. No stones. No dilatation. PANCREAS: Limited evaluation due to overlying bowel gas RIGHT KIDNEY: Measures 10.7 x 5.3 x 4.6cm. Upper pole cyst measuring 1.3 x 1.3 x 0.9 cm. Lower pole cyst measuring 1.4 x 1.3 x 1.5 cm. Normal echogenicity. No calculus, mass, or hydronephrosis. LEFT KIDNEY: Measures 11.5 x 5.3 x 5.0cm. Lower pole cyst measuring 0.6 x 0.6 x 0.4 cm. Normal echogenicity. No calculus, mass, or hydronephrosis. SPLEEN: Enlarged, measuring 16.0 x 6.5 x 14.2 cm. Small calcification measuring 0.7 x 0.7 x 0.7 cm. AORTA: No aneurysmal dilatation. IVC: Unremarkable. OTHER FINDINGS: None. IMPRESSION: Hepatosplenomegaly, similar to prior CT scan. Bilateral renal cysts.
[2017-06-21] MEDS: Insulin Lispro (humaLOG) 100 Units/ml Inj SC SCH (22:00)
[2017-06-22] MEDS: Insulin Lispro (humaLOG) 100 Units/ml Inj SC SCH ×4 (06:43→21:35)
--- NOTE | 2017-06-22 08:23 | CARD ---
APPROVED REPORT EKG Measurement Heart [id number] <Conclusion> Atrial fibrillation Left anterior fascicular block Abnormal ECG
--- NOTE | 2017-06-22 09:32 | CP.PCM.CON ---
History of Present Illness - History of Present Illness History of Present Illness: RENAL CONSULT 61 year old male with ESRD TTS, DM, HTN, CAD that presented w/ fevers. He went yesterday for elective cataract surgery. He complained of naussea at htat time and was found to be febrile. He was sent to the ER for further eval where his temperature was 102. He endorses n/v today. He denies any problems w/ HD . He uses an AVF. He continues to bite his fingers. He has had infection related to them in the past. He last had HD on Tuesday. ROS: a full detailed ROS is negative except as in my hpi pmh: as below ESRD TTS famhx: no esrd sochx: no active smoke/etoh/ivdu all: as below meds: as below pe: vs as below gen: nad sclera: anicteric op clear neck: supple, no thyromegaly lungs cta b/l abd soft, no r/g, + bs ext: trace edema neuro: a+ox3 follows command psych: nml affect skin: bit browne on tips of fingers labs and imaging review imp: ESRD / Fevers/ Anemia of Renal Disease/ Hypertensive Kidney disease/ Secondary hyperparathyroid/ Hyperphosphatemia Plan Plan for HD tomorrow no urgent need today f/u cultures - source of infection not clear yet at this point BP well controlled on medications Epo w/ HD On calcitriol phos at goal. Past Patient History - Infectious Disease Hx of Infectious Diseases: None - Past Medical History & Family History Past Medical History?: Yes - Past Social History Smoking Status: Never Smoked - CARDIAC Hx Atrial Fibrillation: Yes Hx Cardia Arrhythmia: Yes Hx Congestive Heart Failure: Yes Hx Hypercholesterolemia: Yes Hx Hypertension: Yes - PULMONARY Hx Pneumonia: Yes Hx Sleep Apnea: Yes Other/Comment: 0n 02 at home - NEUROLOGICAL Hx Dizziness: Yes Hx Transient Ischemic Attacks (TIA): Yes (2010) Other/Comment: periods of confusion when not feeling well - HEENT Hx HEENT Problems: Yes (RETINOPATHY/CATARACT) Hx Cataracts: Yes - RENAL Hx Chronic Kidney Disease: Yes Hx Dialysis: Yes Type of Dialysis Access: av shunt Date of Last Dialysis Treatment: 06/21/17 - ENDOCRINE/METABOLIC Hx Diabetes Mellitus Type 2: Yes Hx Hypothyroidism: No - HEMATOLOGICAL/ONCOLOGICAL Hx Anemia: Yes - INTEGUMENTARY Hx Dermatological Problems: Yes Other/Comment: ULCER BACK RIGHT THIGH - MUSCULOSKELETAL/RHEUMATOLOGICAL Hx Falls: No Hx Fractures: Yes (Right foot surgery) - GASTROINTESTINAL Hx Gastrointestinal Disorders: Yes Hx Gastroesophageal Reflux: Yes Other/Comment: CONSTIPATION. ELEVATED LFTS. 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 LEFT HAND 1ST AND FOURTH DIGIT AMPUTATION 2015 - ANESTHESIA Hx Anesthesia: Yes Hx Anesthesia Reactions: Yes (PROPOFOL (CARDIAC ARREST)) Hx Malignant Hyperthermia: No Meds Allergies/Adverse Reactions: Allergies Allergy/AdvReac Type Severity Reaction Status Date / Time ciprofloxacin Allergy SWELLING Verified 06/21/17 10:25 Penicillins Allergy ANAPHYLAXIS Verified 06/21/17 10:25 propofol Allergy ANAPHYLAXIS Verified 06/21/17 10:25 vitamin K2 Allergy SHORTNESS Verified 06/21/17 10:25 OF BREATH diphenhydramine HCl AdvReac ITCHING Verified 06/21/17 10:25 [From Jeff] surgical tape Allergy REDNESS Uncoded 06/21/17 10:25 - Medications Medications: Current Medications Acetaminophen (Tylenol 325mg Tab) 650 mg PO Q4 [facility] Alprazolam (Xanax) 0.5 mg PO HS [facility] Last Admin: 06/21/17 21:35 Dose: 0.5 mg Aspirin (Ecotrin) 81 mg PO DAILY [facility] Atorvastatin Calcium (Lipitor) 20 mg PO HS [facility] Last Admin: 06/21/17 21:35 Dose: 20 mg Calcitriol (Rocaltrol) 0.25 mcg PO DAILY [facility] Cholecalciferol (Vitamin D) 1,000 intlu PO DAILY [facility] Clonidine HCl (Catapres) 0.2 mg PO TID [facility] Clopidogrel Bisulfate (Plavix) 75 mg PO DAILY [facility] Famotidine (Pepcid) 20 mg PO BID [facility] Glipizide (Glucotrol) 10 mg PO BID [facility] Insulin Human Lispro (Humalog) 0 units SC ACHS [facility] PRN Reason: Protocol Last Admin: 06/22/17 06:43 Dose: Not Given Metoprolol Tartrate (Lopressor) 50 mg PO BID [facility] Last Admin: 06/21/17 21:34 Dose: 50 mg Ondansetron HCl (Zofran Inj) 4 mg IVP Q6 PRN PRN Reason: Nausea/Vomiting Oxycodone/Acetaminophen (Percocet 5/325 Mg Tab) 1 tab PO TTS [facility] Stop: 06/26/17 09:01 Sertraline HCl (Zoloft) 50 mg PO HS [facility] Last Admin: 06/21/17 21:35 Dose: 50 mg Sevelamer HCl (Renagel) 3,200 mg PO TID [facility] Results - Vital Signs Recent Vital Signs: Last Vital Signs Temp 100.9 F H 06/22/17 08:41 Pulse 95 H 06/22/17 08:41 Resp 20 06/22/17 08:41 BP 133/79 06/22/17 08:41 Pulse Ox 98 06/22/17 08:41 - Labs Result Diagrams: 06/21/17 11:02 06/21/17 11:02 Labs: Laboratory Results - last 24 hr 06/21/17 06/21/17 06/21/17 10:36 11:02 11:02 WBC 6.2 D RBC 3.09 L Hgb 9.6 L Hct 29.3 L MCV 94.8 H D MCH 31.2 H MCHC 32.9 L RDW 16.7 H Plt Count 69 L D MPV 9.9 Neut % (Auto) 77.5 H Lymph % (Auto) 8.5 L Storey % (Auto) 11.6 H Eos % (Auto) 1.8 Baso % (Auto) 0.6 Neut # (Auto) 4.8 Lymph # (Auto) 0.5 L Storey # (Auto) 0.7 Eos # (Auto) 0.1 Baso # (Auto) 0.0 Neutrophils % (Manual) 77 H Lymphocytes % (Manual) 11 L Monocytes % (Manual) 9 Eosinophils % (Manual) 2 Basophils % (Manual) 1 Platelet Estimate Decreased L Hypochromasia (manual) Moderate Anisocytosis (manual) Slight PT INR APTT pO2 45 VBG pH 7.38 VBG pCO2 56 VBG HCO3 29.8 VBG Total CO2 34.8 H VBG O2 Sat (Calc) 85.3 H VBG Base Excess 6.7 H VBG Potassium 4.6 Sodium 139.0 142 Chloride 103.0 98 Glucose 198 H Lactate 1.0 FiO2 21.0 Potassium 4.5 Carbon Dioxide 27 Anion Gap 22 H BUN 43 H Creatinine 4.0 H Est GFR ( Amer) 19 Est GFR (Non-Af Amer) 15 POC Glucose (mg/dL) Random Glucose 189 H Calcium 9.5 Phosphorus 3.8 Magnesium 2.2 Total Bilirubin 0.9 AST 19 ALT 37 Alkaline Phosphatase 310 H Ammonia Total Protein 8.1 Albumin 4.0 Globulin 4.1 H Albumin/Globulin Ratio 1.0 Lipase 107 TSH 3rd Generation 0.53 Venous Blood Potassium 4.6 Influenza Typ A,B (EIA) Blood Type Antibody Screen BBK History Checked 06/21/17 06/21/17 06/21/17 11:02 11:02 11:15 WBC RBC Hgb Hct MCV MCH MCHC RDW Plt Count MPV Neut % (Auto) Lymph % (Auto) Storey % (Auto) Eos % (Auto) Baso % (Auto) Neut # (Auto) Lymph # (Auto) Storey # (Auto) Eos # (Auto) Baso # (Auto) Neutrophils % (Manual) Lymphocytes % (Manual) Monocytes % (Manual) Eosinophils % (Manual) Basophils % (Manual) Platelet Estimate Hypochromasia (manual) Anisocytosis (manual) PT 12.3 INR 1.1 APTT 33.9 pO2 VBG pH VBG pCO2 VBG HCO3 VBG Total CO2 VBG O2 Sat (Calc) VBG Base Excess VBG Potassium Sodium Chloride Glucose Lactate FiO2 Potassium Carbon Dioxide Anion Gap BUN Creatinine Est GFR ( Amer) Est GFR (Non-Af Amer) POC Glucose (mg/dL) Random Glucose Calcium Phosphorus Magnesium Total Bilirubin AST ALT Alkaline Phosphatase Ammonia 30 Total Protein Albumin Globulin Albumin/Globulin Ratio Lipase TSH 3rd Generation Venous Blood Potassium Influenza Typ A,B (EIA) Blood Type O POSITIVE Antibody Screen Negative BBK History Checked Patient has bt 06/21/17 06/21/17 06/22/17 15:35 22:20 05:15 WBC RBC Hgb Hct MCV MCH MCHC RDW Plt Count MPV Neut % (Auto) Lymph % (Auto) Storey % (Auto) Eos % (Auto) Baso % (Auto) Neut # (Auto) Lymph # (Auto) Storey # (Auto) Eos # (Auto) Baso # (Auto) Neutrophils % (Manual) Lymphocytes % (Manual) Monocytes % (Manual) Eosinophils % (Manual) Basophils % (Manual) Platelet Estimate Hypochromasia (manual) Anisocytosis (manual) PT INR APTT pO2 VBG pH VBG pCO2 VBG HCO3 VBG Total CO2 VBG O2 Sat (Calc) VBG Base Excess VBG Potassium Sodium Chloride Glucose Lactate FiO2 Potassium Carbon Dioxide Anion Gap BUN Creatinine Est GFR ( Amer) Est GFR (Non-Af Amer) POC Glucose (mg/dL) 226 H 143 H Random Glucose Calcium Phosphorus Magnesium Total Bilirubin AST ALT Alkaline Phosphatase Ammonia Total Protein Albumin Globulin Albumin/Globulin Ratio Lipase TSH 3rd Generation Venous Blood Potassium Influenza Typ A,B (EIA) Negative for flu a/b Blood Type Antibody Screen BBK History Checked
[2017-06-22] MEDS: Cholecalciferol 1,000 INTLU TAB PO SCH (10:20)
[2017-06-22 12:23] LABS: ABG ALLEN TEST YES; ARTERIAL BLOOD GAS HCO3 26.2 mmol/L (21-28); ARTERIAL BLOOD GAS O2 SAT 97.4 % (95-98); ARTERIAL BLOOD GAS PCO2 46 mm/Hg (35-45); ARTERIAL BLOOD GAS PH 7.38 (7.35-7.45); ARTERIAL BLOOD GAS PO2 69 mm/Hg (80-100); ARTERIAL BLOOD GAS TCO2 28.6 mmol/L (22-28)
[2017-06-22 12:51] LABS: BASO % 0.7 % (0.0-2.0); EOS % 0.3 % (0.0-4.0); HEMOGLOBIN 10.1 g/dL (12.0-18.0); LYMPH # 0.7 K/uL (1.0-4.3); LYMPH % 10.5 % (20.0-40.0); MEAN CELL VOLUME 94.6 fl (80.0-94.0); MEAN CORPUSCULAR HEMOGLOBIN 31.1 pg (27.0-31.0); MEAN CORPUSCULAR HGB CONC 32.9 g/dL (33.0-37.0); MEAN PLATELET VOLUME 9.1 fl (7.2-11.7); MONO # 0.7 K/uL (0.0-0.8); MONO % 9.9 % (0.0-10.0); NEUT # 5.3 K/uL (1.8-7.0); NEUT % 78.6 % (50.0-75.0); RBC 3.25 Mil/uL (4.40-5.90); RED CELL DISTRIBUTION WIDTH 16.7 % (11.5-14.5); WHITE BLOOD COUNT 6.7 K/uL (4.8-10.8)
--- NOTE | 2017-06-22 13:01 | PCM.RRT ---
I.Reason for [employer] - A) Acute Change in Patient: (Select all that apply): Acute change in mental status, Acute change in SpO2 less Subjective: [employer] Call Time: 12:04 pm [employer] Arrival Time: 12:05 pm [employer] Location: Med-S[facility] S: [employer] was called by RN on a 61 y/o male due to low Oxygen saturation and altered mental status. Nurse reports pt was confused, very weak and difficult to arouse. Also, Nurse reported pt had fever overnight and last hemodialysis was on Tuesday, 2 days ago. O: --VS: BP 127/74, HR 84, Sat O2 88%, Temp 98.5degF, BS 182. --Physical Exam: > GEN: Pt resting on bed, looks confused, responsive to voice and tactile stimulation. > HEENT: non-traumatic, EOMI, oropharynx w/ normal inspection. > CV: S1 and S2 present, regular rhythm. > Lungs: CTAB > ABD: soft, distended, non-tender, no rigidity, no rebound, BS present and normal. > EXT: L arm with dialysis shunt intact. NO edema or cyanosis b/l. [employer] Intervention -Chart reviewed on [employer]. Labs from yesterday: --CXR with NO active dz, --BUN/Creat 43/4.0, --Blood Cx: positive for Gram positive Cocci. -ABG shock panel ordered. -CBC and BMP ordered. -PMD Dr Brower and ID Dr Walsh were notified. -Pt was stable, awake, reported NO complaints. --Repeated Vital Signs: BP 113/79, HR 79, Sat O2 94%, temp 98.5 degF. A/P 61 y/o M with a PMHx of ESRD, DM, HTN, and CAD admitted for evaluation of fever , just had an episode of altered mental status and O2 de-saturation. -Possibly due to azotemia vs bacteremia. -Consider adding IV antibiotics, IV fluids or hemodialysis. -F/U CBC and BMP results. [employer] End Time 12:19 pm [employer] Leader: Chas Bridges-Hospitalist [employer] Residents: Dr Cevallos PGY-1, Dr Alfredo PGY-1, DR Robert PGY-3.
[2017-06-22 13:05] LABS: CALCIUM 8.9 mg/dL (8.4-10.2)
[2017-06-22] MEDS ORDERED: Iodixanol 320 MG/ML 100 ML BOTTLE IV ONE (13:59)
[2017-06-22] MEDS ORDERED: Sodium Chloride 0.9% 100 ML ONE (13:59)
--- NOTE | 2017-06-22 14:29 | CT ---
PROCEDURE: CT HEAD WITHOUT CONTRAST. HISTORY: Acute change in mental status COMPARISON: 09/20/2016 TECHNIQUE: Axial computed tomography images were obtained through the head/brain without intravenous contrast. Coronal and sagittal reconstructed images. Radiation dose: Total exam DLP = 951.25 mGy-cm. This CT exam was performed using one or more of the following dose reduction techniques: Automated exposure control, adjustment of the mA and/or kV according to patient size, and/or use of iterative reconstruction technique. FINDINGS: HEMORRHAGE: No intracranial hemorrhage. BRAIN: No mass effect or edema. Cortical atrophy, periventricular small vessel disease. VENTRICLES: Unremarkable. No hydrocephalus. CALVARIUM: Unremarkable. PARANASAL SINUSES: Unremarkable as visualized. No significant inflammatory changes. MASTOID AIR CELLS: Unremarkable as visualized. No inflammatory changes. OTHER FINDINGS: None. IMPRESSION: No acute intracranial abnormalities. No significant findings to account for the clinical presentation. No significant interval change compared to the prior examination(s).
--- NOTE | 2017-06-22 14:32 | CP.PCM.CON ---
History of Present Illness - History of Present Illness History of Present Illness: Infectious Disease Consultation Note- asked to see this sander at the request of for bacteremia HPI- Patient well known to me from his previous admissions. 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 Pt. was apparently at the [facility] for cataract surgery and his bp was low and he had fever and hence surgery was cancelled and he was taken to [facility] ed for further evaluation and work up . found to have blood cx - GPC x 2 prelim and apparently this am he had [employer]UMBER[employer] HELPER for respiratory distress and is now transferred in ICU . He is currently awake and alert but tired. Undergoing HD now. his and daughter are at his bedside. PMSH: Anemia, Anxiety, Arthritis, Atrial Fibrillation, CAD, Cardia Arrhythmia, CHF, Colonic Polyps (2012), Depression, Diabetes, s/p left foot surgery with pins tita in place ,HTN, Hypercholesterolemia, Hyperlipidemia, Pneumonia, End Stage Renal Disease (with dialysis), Chronic Kidney Disease, Sleep Apnea, TIA ( 2010)\ lumbar surgery with hardware in place years ago Family History: DENIES Social History: DENIES tobacco, ETOH, IVDU Meds: as below Allergies: as above Review of Systems - Review of Systems Review of Systems: ROS- had fever on admission but denies fever at home, states had nausea today here but denies it at home, resp distress earlier today but denies it now, denies any cough, denies any TAPIA, denies any abd. pain, denies any diarrhea, denies any new finger lesions or infections or open wounds. Past Patient History - Infectious Disease Hx of Infectious Diseases: None - Past Medical History & Family History Past Medical History?: Yes - Past Social History Smoking Status: Never Smoked - CARDIAC Hx Atrial Fibrillation: Yes Hx Cardia Arrhythmia: Yes Hx Congestive Heart Failure: Yes Hx Hypercholesterolemia: Yes Hx Hypertension: Yes - PULMONARY Hx Pneumonia: Yes Hx Sleep Apnea: Yes Other/Comment: 0n 02 at home - NEUROLOGICAL Hx Dizziness: Yes Hx Transient Ischemic Attacks (TIA): Yes (2010) Other/Comment: periods of confusion when not feeling well - HEENT Hx HEENT Problems: Yes (RETINOPATHY/CATARACT) Hx Cataracts: Yes - RENAL Hx Chronic Kidney Disease: Yes Hx Dialysis: Yes Type of Dialysis Access: av shunt Date of Last Dialysis Treatment: 06/21/17 - ENDOCRINE/METABOLIC Hx Diabetes Mellitus Type 2: Yes Hx Hypothyroidism: No - HEMATOLOGICAL/ONCOLOGICAL Hx Anemia: Yes - INTEGUMENTARY Hx Dermatological Problems: Yes Other/Comment: ULCER BACK RIGHT THIGH - MUSCULOSKELETAL/RHEUMATOLOGICAL Hx Falls: No Hx Fractures: Yes (Right foot surgery) - GASTROINTESTINAL Hx Gastrointestinal Disorders: Yes Hx Gastroesophageal Reflux: Yes Other/Comment: CONSTIPATION. ELEVATED LFTS. 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 LEFT HAND 1ST AND FOURTH DIGIT AMPUTATION 2015 - ANESTHESIA Hx Anesthesia: Yes Hx Anesthesia Reactions: Yes (PROPOFOL (CARDIAC ARREST)) Hx Malignant Hyperthermia: No Meds Allergies/Adverse Reactions: Allergies Allergy/AdvReac Type Severity Reaction Status Date / Time ciprofloxacin Allergy SWELLING Verified 06/21/17 10:25 Penicillins Allergy ANAPHYLAXIS Verified 06/21/17 10:25 propofol Allergy ANAPHYLAXIS Verified 06/21/17 10:25 vitamin K2 Allergy SHORTNESS Verified 06/21/17 10:25 OF BREATH diphenhydramine HCl AdvReac ITCHING Verified 06/21/17 10:25 [From Benadryl] surgical tape Allergy REDNESS Uncoded 06/21/17 10:25 - Medications Medications: Current Medications Acetaminophen (Tylenol 325mg Tab) 650 mg PO Q4 GRISELDA Last Admin: 06/22/17 10:16 Dose: 650 mg Alprazolam (Xanax) 0.5 mg PO HS GRISELDA Last Admin: 06/21/17 21:35 Dose: 0.5 mg Aspirin (Ecotrin) 81 mg PO DAILY [facility] Last Admin: 06/22/17 10:17 Dose: 81 mg Atorvastatin Calcium (Lipitor) 20 mg PO HS [facility] Last Admin: 06/21/17 21:35 Dose: 20 mg Calcitriol (Rocaltrol) 0.25 mcg PO DAILY [facility] Last Admin: 06/22/17 10:19 Dose: 0.25 mcg Cholecalciferol (Vitamin D) 1,000 intlu PO DAILY [facility] Last Admin: 06/22/17 10:20 Dose: 1,000 intlu Clonidine HCl (Catapres) 0.2 mg PO TID [facility] Last Admin: 06/22/17 10:17 Dose: 0.2 mg Clonidine HCl (Catapres) 0.1 mg PO BID [facility] Clopidogrel Bisulfate (Plavix) 75 mg PO DAILY [facility] Last Admin: 06/22/17 10:19 Dose: 75 mg Epoetin Alexy (Procrit) 8,000 unit IV TTS [facility] Famotidine (Pepcid) 20 mg PO BID [facility] Last Admin: 06/22/17 10:19 Dose: 20 mg Glipizide (Glucotrol) 10 mg PO BID [facility] Last Admin: 06/22/17 10:17 Dose: 10 mg Insulin Human Lispro (Humalog) 0 units SC [facility] PRN Reason: Protocol Last Admin: 06/22/17 12:50 Dose: Not Given Metoprolol Tartrate (Lopressor) 50 mg PO BID [facility] Last Admin: 06/22/17 10:19 Dose: 50 mg Ondansetron HCl (Zofran Inj) 4 mg IVP Q6 PRN PRN Reason: Nausea/Vomiting Ondansetron HCl (Zofran Odt) 4 mg PO Q8H PRN PRN Reason: Nausea/Vomiting Sertraline HCl (Zoloft) 50 mg PO [facility] Last Admin: 06/21/17 21:35 Dose: 50 mg Sevelamer HCl (Renagel) 3,200 mg PO TID [facility] Last Admin: 06/22/17 12:50 Dose: Not Given Physical Exam - Constitutional Appears: No Acute Distress, Chronically Ill - Head Exam Head Exam: ATRAUMATIC - Eye Exam Eye Exam: EOMI - ENT Exam ENT Exam: Normal Oropharynx - Neck Exam Neck exam: Positive for: Full Rom - Respiratory Exam Respiratory Exam: Clear to Auscultation Bilateral, NORMAL BREATHING PATTERN - Cardiovascular Exam Cardiovascular Exam: RRR, +S1, +S2 - GI/Abdominal Exam GI & Abdominal Exam: Normal Bowel Sounds, Soft Additional comments: NT, ND - Extremities Exam Additional comments: B/L le dark discoloration and cold to touch left hadn with multiple distal digit amputations right hadn with dital nail bed bite browne from nail biting but no obvious open wounds or any discharge - Neurological Exam Neurological exam: Alert, Oriented x3 Results - Vital Signs Recent Vital Signs: Last Vital Signs Temp 99.1 F 06/22/17 13:08 Pulse 77 06/22/17 13:08 Resp 19 06/22/17 13:08 BP 110/65 06/22/17 13:08 Pulse Ox 99 06/22/17 13:08 - Labs Result Diagrams: 06/22/17 12:45 06/22/17 12:45 Labs: Laboratory Results - last 24 hr 06/21/17 06/21/17 06/22/17 15:35 22:20 05:15 WBC RBC Hgb Hct MCV MCH MCHC RDW Plt Count MPV Neut % (Auto) Lymph % (Auto) [place] % (Auto) Eos % (Auto) Baso % (Auto) Neut # (Auto) Lymph # (Auto) [place] # (Auto) Eos # (Auto) Baso # (Auto) pCO2 pO2 HCO3 ABG pH ABG Total CO2 ABG O2 Saturation ABG Base Excess Ari Test ABG Potassium A-a O2 Difference Sodium Chloride Glucose Lactate Liter Flow FiO2 Potassium Carbon Dioxide Anion Gap BUN Creatinine Est GFR ( Amer) Est GFR (Non-Af Amer) POC Glucose (mg/dL) 226 H 143 H Random Glucose Calcium Arterial Blood Potassium Influenza Typ A,B (EIA) Negative for flu a/b 06/22/17 06/22/17 06/22/17 11:16 12:08 12:13 WBC RBC Hgb Hct MCV MCH MCHC RDW Plt Count MPV Neut % (Auto) Lymph % (Auto) [place] % (Auto) Eos % (Auto) Baso % (Auto) Neut # (Auto) Lymph # (Auto) [place] # (Auto) Eos # (Auto) Baso # (Auto) pCO2 46 H pO2 69 L HCO3 26.2 ABG pH 7.38 ABG Total CO2 28.6 H ABG O2 Saturation 97.4 ABG Base Excess 1.7 Ari Test Yes ABG Potassium 4.9 A-a O2 Difference 73.0 Sodium 135.0 Chloride 101.0 Glucose 172 H Lactate 1.1 Liter Flow 2 FiO2 28.0 Potassium Carbon Dioxide Anion Gap BUN Creatinine Est GFR ( Amer) Est GFR (Non-Af Amer) POC Glucose (mg/dL) 158 H 182 H Random Glucose Calcium Arterial Blood Potassium 4.9 Influenza Typ A,B (EIA) 06/22/17 06/22/17 12:45 12:45 WBC 6.7 RBC 3.25 L Hgb 10.1 L Hct 30.8 L MCV 94.6 H MCH 31.1 H MCHC 32.9 L RDW 16.7 H Plt Count 74 L MPV 9.1 Neut % (Auto) 78.6 H Lymph % (Auto) 10.5 L [place] % (Auto) 9.9 Eos % (Auto) 0.3 Baso % (Auto) 0.7 Neut # (Auto) 5.3 Lymph # (Auto) 0.7 L [place] # (Auto) 0.7 Eos # (Auto) 0.0 Baso # (Auto) 0.0 pCO2 pO2 HCO3 ABG pH ABG Total CO2 ABG O2 Saturation ABG Base Excess Ari Test ABG Potassium A-a O2 Difference Sodium 139 Chloride 98 Glucose Lactate Liter Flow FiO2 Potassium 4.8 Carbon Dioxide 25 Anion Gap 21 H BUN 63 H Creatinine 5.8 H Est GFR ( Amer) 12 Est GFR (Non-Af Amer) 10 POC Glucose (mg/dL) Random Glucose 154 H Calcium 8.9 Arterial Blood Potassium Influenza Typ A,B (EIA) Laboratory Results - last 72 hr 06/21/17 06/21/17 06/21/17 10:36 11:02 11:02 WBC 6.2 D RBC 3.09 L Hgb 9.6 L Hct 29.3 L MCV 94.8 H D MCH 31.2 H MCHC 32.9 L RDW 16.7 H Plt Count 69 L D MPV 9.9 Neut % (Auto) 77.5 H Lymph % (Auto) 8.5 L [place] % (Auto) 11.6 H Eos % (Auto) 1.8 Baso % (Auto) 0.6 Neut # (Auto) 4.8 Lymph # (Auto) 0.5 L [place] # (Auto) 0.7 Eos # (Auto) 0.1 Baso # (Auto) 0.0 Neutrophils % (Manual) 77 H Lymphocytes % (Manual) 11 L Monocytes % (Manual) 9 Eosinophils % (Manual) 2 Basophils % (Manual) 1 Platelet Estimate Decreased L Hypochromasia (manual) Moderate Anisocytosis (manual) Slight PT INR APTT pCO2 pO2 45 HCO3 ABG pH ABG Total CO2 ABG O2 Saturation ABG Base Excess Ari Test ABG Potassium VBG pH 7.38 VBG pCO2 56 VBG HCO3 29.8 VBG Total CO2 34.8 H VBG O2 Sat (Calc) 85.3 H VBG Base Excess 6.7 H VBG Potassium 4.6 A-a O2 Difference Sodium 139.0 142 Chloride 103.0 98 Glucose 198 H Lactate 1.0 Liter Flow FiO2 21.0 Potassium 4.5 Carbon Dioxide 27 Anion Gap 22 H BUN 43 H Creatinine 4.0 H Est GFR ( Amer) 19 Est GFR (Non-Af Amer) 15 POC Glucose (mg/dL) Random Glucose 189 H Calcium 9.5 Phosphorus 3.8 Magnesium 2.2 Total Bilirubin 0.9 AST 19 ALT 37 Alkaline Phosphatase 310 H Ammonia Total Protein 8.1 Albumin 4.0 Globulin 4.1 H Albumin/Globulin Ratio 1.0 Lipase 107 TSH 3rd Generation 0.53 Arterial Blood Potassium Venous Blood Potassium 4.6 Influenza Typ A,B (EIA) Blood Type Antibody Screen BBK History Checked 06/21/17 06/21/17 06/21/17 11:02 11:02 11:15 WBC RBC Hgb Hct MCV MCH MCHC RDW Plt Count MPV Neut % (Auto) Lymph % (Auto) [place] % (Auto) Eos % (Auto) Baso % (Auto) Neut # (Auto) Lymph # (Auto) [place] # (Auto) Eos # (Auto) Baso # (Auto) Neutrophils % (Manual) Lymphocytes % (Manual) Monocytes % (Manual) Eosinophils % (Manual) Basophils % (Manual) Platelet Estimate Hypochromasia (manual) Anisocytosis (manual) PT 12.3 INR 1.1 APTT 33.9 pCO2 pO2 HCO3 ABG pH ABG Total CO2 ABG O2 Saturation ABG Base Excess Ari Test ABG Potassium VBG pH VBG pCO2 VBG HCO3 VBG Total CO2 VBG O2 Sat (Calc) VBG Base Excess VBG Potassium A-a O2 Difference Sodium Chloride Glucose Lactate Liter Flow FiO2 Potassium Carbon Dioxide Anion Gap BUN Creatinine Est GFR ( Amer) Est GFR (Non-Af Amer) POC Glucose (mg/dL) Random Glucose Calcium Phosphorus Magnesium Total Bilirubin AST ALT Alkaline Phosphatase Ammonia 30 Total Protein Albumin Globulin Albumin/Globulin Ratio Lipase TSH 3rd Generation Arterial Blood Potassium Venous Blood Potassium Influenza Typ A,B (EIA) Blood Type O POSITIVE Antibody Screen Negative BBK History Checked Patient has bt 06/21/17 06/21/17 06/22/17 15:35 22:20 05:15 WBC RBC Hgb Hct MCV MCH MCHC RDW Plt Count MPV Neut % (Auto) Lymph % (Auto) [place] % (Auto) Eos % (Auto) Baso % (Auto) Neut # (Auto) Lymph # (Auto) [place] # (Auto) Eos # (Auto) Baso # (Auto) Neutrophils % (Manual) Lymphocytes % (Manual) Monocytes % (Manual) Eosinophils % (Manual) Basophils % (Manual) Platelet Estimate Hypochromasia (manual) Anisocytosis (manual) PT INR APTT pCO2 pO2 HCO3 ABG pH ABG Total CO2 ABG O2 Saturation ABG Base Excess Ari Test ABG Potassium VBG pH VBG pCO2 VBG HCO3 VBG Total CO2 VBG O2 Sat (Calc) VBG Base Excess VBG Potassium A-a O2 Difference Sodium Chloride Glucose Lactate Liter Flow FiO2 Potassium Carbon Dioxide Anion Gap BUN Creatinine Est GFR ( Amer) Est GFR (Non-Af Amer) POC Glucose (mg/dL) 226 H 143 H Random Glucose Calcium Phosphorus Magnesium Total Bilirubin AST ALT Alkaline Phosphatase Ammonia Total Protein Albumin Globulin Albumin/Globulin Ratio Lipase TSH 3rd Generation Arterial Blood Potassium Venous Blood Potassium Influenza Typ A,B (EIA) Negative for flu a/b Blood Type Antibody Screen BBK History Checked 06/22/17 06/22/17 06/22/17 11:16 12:08 12:13 WBC RBC Hgb Hct MCV MCH MCHC RDW Plt Count MPV Neut % (Auto) Lymph % (Auto) [place] % (Auto) Eos % (Auto) Baso % (Auto) Neut # (Auto) Lymph # (Auto) [place] # (Auto) Eos # (Auto) Baso # (Auto) Neutrophils % (Manual) Lymphocytes % (Manual) Monocytes % (Manual) Eosinophils % (Manual) Basophils % (Manual) Platelet Estimate Hypochromasia (manual) Anisocytosis (manual) PT INR APTT pCO2 46 H pO2 69 L HCO3 26.2 ABG pH 7.38 ABG Total CO2 28.6 H ABG O2 Saturation 97.4 ABG Base Excess 1.7 Ari Test Yes ABG Potassium 4.9 VBG pH VBG pCO2 VBG HCO3 VBG Total CO2 VBG O2 Sat (Calc) VBG Base Excess VBG Potassium A-a O2 Difference 73.0 Sodium 135.0 Chloride 101.0 Glucose 172 H Lactate 1.1 Liter Flow 2 FiO2 28.0 Potassium Carbon Dioxide Anion Gap BUN Creatinine Est GFR ( Amer) Est GFR (Non-Af Amer) POC Glucose (mg/dL) 158 H 182 H Random Glucose Calcium Phosphorus Magnesium Total Bilirubin AST ALT Alkaline Phosphatase Ammonia Total Protein Albumin Globulin Albumin/Globulin Ratio Lipase TSH 3rd Generation Arterial Blood Potassium 4.9 Venous Blood Potassium Influenza Typ A,B (EIA) Blood Type Antibody Screen BBK History Checked 06/22/17 06/22/17 12:45 12:45 WBC 6.7 RBC 3.25 L Hgb 10.1 L Hct 30.8 L MCV 94.6 H MCH 31.1 H MCHC 32.9 L RDW 16.7 H Plt Count 74 L MPV 9.1 Neut % (Auto) 78.6 H Lymph % (Auto) 10.5 L [place] % (Auto) 9.9 Eos % (Auto) 0.3 Baso % (Auto) 0.7 Neut # (Auto) 5.3 Lymph # (Auto) 0.7 L [place] # (Auto) 0.7 Eos # (Auto) 0.0 Baso # (Auto) 0.0 Neutrophils % (Manual) Lymphocytes % (Manual) Monocytes % (Manual) Eosinophils % (Manual) Basophils % (Manual) Platelet Estimate Hypochromasia (manual) Anisocytosis (manual) PT INR APTT pCO2 pO2 HCO3 ABG pH ABG Total CO2 ABG O2 Saturation ABG Base Excess Ari Test ABG Potassium VBG pH VBG pCO2 VBG HCO3 VBG Total CO2 VBG O2 Sat (Calc) VBG Base Excess VBG Potassium A-a O2 Difference Sodium 139 Chloride 98 Glucose Lactate Liter Flow FiO2 Potassium 4.8 Carbon Dioxide 25 Anion Gap 21 H BUN 63 H Creatinine 5.8 H Est GFR ( Amer) 12 Est GFR (Non-Af Amer) 10 POC Glucose (mg/dL) Random Glucose 154 H Calcium 8.9 Phosphorus Magnesium Total Bilirubin AST ALT Alkaline Phosphatase Ammonia Total Protein Albumin Globulin Albumin/Globulin Ratio Lipase TSH 3rd Generation Arterial Blood Potassium Venous Blood Potassium Influenza Typ A,B (EIA) Blood Type Antibody Screen BBK History Checked Microbiology 06/21/17 10:30 Blood-Venous S.aureus & Coag-Neg Staph PNA FISH - Final 06/21/17 10:30 Blood-Venous Blood Culture - Preliminary Gram Positive Cocci 06/21/17 10:30 Blood-Venous Gram Stain - Final 06/21/17 11:06 Blood-Venous Blood Culture - Preliminary Gram Positive Cocci 06/21/17 11:06 Blood-Venous Gram Stain - Final Accession No. : [id number] Patient Name / ID : AYANA MOBLEY / [id number] Exam Date : 06/22/2017 14:06:14 ( Approved ) Study Comment : Sex / Age : M / 61Y Creator : Hillary Barnes Dictator : Hillary Banres Clothing Worker : Mva Still Operator : Hillary Barnes Approver2 : Report Date : 06/22/2017 15:18:17 My Comment : PROCEDURE: CT Chest with contrast (Pulmonary Angiogram) HISTORY: r/o PE COMPARISON: None available. TECHNIQUE: Axial computed tomography images were obtained of the chest in the pulmonary arterial phase of enhancement. Coronal and sagittal reformatted images were created and reviewed. Intravenous contrast dose: 95 mL of Visipaque 320 Radiation dose: Total exam DLP = 472 mGy-cm. This CT exam was performed using one or more of the following dose reduction techniques: Automated exposure control, adjustment of the mA and/or kV according to patient size, and/or use of iterative reconstruction technique. FINDINGS: PULMONARY ARTERIES: No pulmonary embolism of the central or segmental pulmonary arterial branches noted. Evaluation for smaller emboli in the subsegmental more peripheral pulmonary arteries is limited. AORTA: No acute findings. No thoracic aortic aneurysm. LUNGS: . No nodule, mass or pulmonary consolidation. Trace posterior dependent atelectatic changes noted. Central airways are patent PLEURAL SPACES: Minimal right posterior pleural thickening with contiguous trace dependent atelectatic changes. No significant appearing effusion or pneuomothorax. HEART: Cardiomegaly with coronary artery calcifications. . No significant pericardial effusion. LYMPH NODES: No lymphadenopathy. BONES, CHEST WALL: . No fracture or destructive lesion . Thoracic spondylosis noted. Developmental variation suggested to the sterno xiphoid junction OTHER FINDINGS: Ascites, splenomegaly. An upper abdominal atherosclerotic vascular calcifications. Patient is noted to have chronic renal failure and is going for dialysis following this exam IMPRESSION: . No central or segmental pulmonary embolus. . Trace right posterior inferior pleural thickening with trace dependent atelectatic changes. Ascites. Splenomegaly. Atherosclerotic vascular disease. Accession No. : [id number] Patient Name / ID : AYANA MOBLEY / [id number] Exam Date : 06/22/2017 14:02:37 ( Approved ) Study Comment : Sex / Age : M / 61Y Creator : Puneet Zaman MD Dictator : Puneet Zaman MD Clothing Worker : Mva Still Operator : Puneet Zaman MD Approver2 : Report Date : 06/22/2017 14:22:55 My Comment : PROCEDURE: CT HEAD WITHOUT CONTRAST. HISTORY: Acute change in mental status COMPARISON: 09/20/2016 TECHNIQUE: Axial computed tomography images were obtained through the head/brain without intravenous contrast. Coronal and sagittal reconstructed images. Radiation dose: Total exam DLP = 951.25 mGy-cm. This CT exam was performed using one or more of the following dose reduction techniques: Automated exposure control, adjustment of the mA and/or kV according to patient size, and/or use of iterative reconstruction technique. FINDINGS: HEMORRHAGE: No intracranial hemorrhage. BRAIN: No mass effect or edema. Cortical atrophy, periventricular small vessel disease. VENTRICLES: Unremarkable. No hydrocephalus. CALVARIUM: Unremarkable. PARANASAL SINUSES: Unremarkable as visualized. No significant inflammatory changes. MASTOID AIR CELLS: Unremarkable as visualized. No inflammatory changes. OTHER FINDINGS: None. IMPRESSION: No acute intracranial abnormalities. No significant findings to account for the clinical presentation. No significant interval change compared to the prior examination(s). Assessment & Plan (1) End stage renal disease Status: Acute (2) Fever Status: Acute (3) Gram-positive bacteremia Status: Acute (4) CKD (chronic kidney disease) requiring chronic dialysis Status: Acute (5) Diabetic neuropathy Status: Acute (6) History of osteomyelitis Status: Acute (7) Personal history of osteomyelitis Status: Acute - Assessment and Plan (Free Text) Assessment: A/P- 61 year old male with ESRD On HD, DM II, history of automutilation of b/l digits secondary to biting s/p OM of left hand distal digists with multiple rounds of terminal superintendent IV antibiotics and distal left hand digit amputations who is now admitted with weakness, fever , hypotention found to have GPC bacteremia. source of bacteremia unclear at this time. certainly the right hand distal nail bed bite can be a nidus . left arm HD shunt site should be ruled out for infection as well. 1.ESRD On HD 2.Hypotention 3.fever 4.GPC bacteremia plan- check TTE r/o vegetations. await ID and sensitivity of the GPC in blood cx. give vanco post HD 1 gram. check 2 more blood cx . check one blood cx from the HD site. advise vascular evaluation of his lower extermities. all labs , imaging and hospital notes reviewed. all above d/w patient and his and they verbalizes full understanding of all above. Thank you for allowing me to take part in the care of this patient. will f/u. ICU time 60 minutes.
--- NOTE | 2017-06-22 14:59 | CP.CCUPN ---
CCU Subjective - Physician Review Subjective (Free Text): 61M transferred to ICU at request of PMD, events as described in Nursing Notes and WIRE COATING OPERATOR METAL Notes. No other HPI obtainable from patient now, but after arrival of and daughter at the bedside, they relate that patient's present BP of 113/ 67 pre-HD is too low and his usual BP is 200/100 pre-HD with anti-HTN meds ususally placed on hold by her on dialysis days. Other vitals and I/O's reviewed. Allergies; Pen, Cipro, Propofol, Vit K, Diphenhydramine, surgical tape Home Meds: Alprazolam, ASA, Atorvastatin, Calcitriol, Vit D, Clonidine, Plavix, Glipizide, Glargine insulin, Lispro insulin, Ketorolac opth gtts, Lopressor, Percocet, Zantac, Zoloft, Renvela PMSFH: Otherwise, all Nursing and physician documentation reviewed to date; no new pertinent info noted relevant to current medical problems. EXAM- HEENT: no icterus, no gaze preference, pupils equal and reactive NECK: No JVD, supple, carotids equal upstroke bilat/no bruits CHEST: decreased BS bases, no wheezes audible HEART: regular, distant, S1S2, no rubs. ABD: soft, no distention, no tympany, no palp tenderness, BS hypoactive. EXT: NO edema. No peripheral/ digital cyanosis, no calf tenderness or palpable cords, distal pulses intact and symmetrical. RUE AVF with good bruit and thrill. NEURO: no focal gross motor deficits SKIN: no rashes, warm and dry. Multiple bite browne over distal digits, LABS: WBC= 6.7 HGB= 10.1 PLTs= 74K 7.38/46/69 Wi=806 K= 4.8 CL= 98 HCO3= 25 BUN/Cr= 63/5.8 GC=445 Lactate = 1.1 Alk Phos = 310; GB on Abd US negative EKG 06/21: A Fib 75, LAHB, poor R progression anteriorly, no acute changes ( my interp). CTA Chest reviewed: US Abdomen: no unexpected findings. IMPRESSION / MAJOR PROBLEMS NOW: 1. AMS, r/o structural SHEET METAL JOURNEYMAN pathology versus metabolic Encephalopathy; and / or Medication-Induced Adverse Effects 2. Desaturation / Hypoxemia prompting WIRE COATING OPERATOR METAL call. 3. Bacteremia with GPC 4. ESRD on CAHD PLAN: 1. US Venous Doppler Legs 2. CTA Chest ordered by PMD. 3. CT Head 4. If CT head negative for bleed, consider AC if evidence is strong for PTE. 5. Serial Trops 6. Hold all meds with SHEET METAL JOURNEYMAN effects: Percocet, Zoloft, Clonidine ( tapered) , Alprazolam. 7. Repeat Blood cultures, one Blood culture positive. So far no evidence of severe sepsis or shock state. Already recd one dose Vanco today. Repeat ECHO. 8. Does not appear to need assisted breathing or ventilatory support at this time. 9. Clarify any Advance Directives, none on chart. 06/22/17 15:02 06/22/17 15:57 CCU Objective - Vital Signs / Intake & Output Vital Signs (Last 4 hours): Vital Signs Temp Pulse Resp BP Pulse Ox 06/22/17 13:08 99.1 F 77 19 110/65 99 06/22/17 12:15 98.5 F 79 20 113/69 95 06/22/17 12:05 98.5 F 83 21 127/74 97 06/22/17 12:01 98.5 F 80 21 105/66 96 06/22/17 11:59 88 L 06/22/17 11:33 100.6 F H 87 20 125/68 100 06/22/17 11:16 100.6 F H - Medications Active Medications: Active Medications Generic Name Dose Route Start Last Admin Trade Name Freq PRN Reason Stop Dose Admin Acetaminophen 650 mg 06/22/17 09:00 06/22/17 10:16 Tylenol 325mg Tab PO 650 mg Q4 GRISELDA Administration Alprazolam 0.5 mg 06/21/17 22:00 06/21/17 21:35 Xanax PO 0.5 mg HS GRISELDA Administration Aspirin 81 mg 06/22/17 09:00 06/22/17 10:17 Ecotrin PO 81 mg DAILY GRISELDA Administration Atorvastatin Calcium 20 mg 06/21/17 22:00 06/21/17 21:35 Lipitor PO 20 mg HS GRISELDA Administration Calcitriol 0.25 mcg 06/22/17 09:00 06/22/17 10:19 Rocaltrol PO 0.25 mcg DAILY GRISELDA Administration Cholecalciferol 1,000 intlu 06/22/17 09:00 06/22/17 10:20 Vitamin D PO 1,000 intlu DAILY GRISELDA Administration Clonidine HCl 0.2 mg 06/22/17 09:00 06/22/17 10:17 Catapres PO 0.2 mg TID GRISELDA Administration Clonidine HCl 0.1 mg 06/23/17 09:00 Catapres PO BID [facility] Clopidogrel Bisulfate 75 mg 06/22/17 09:00 06/22/17 10:19 Plavix PO 75 mg DAILY [facility] Administration Epoetin Alexy 8,000 unit 06/23/17 09:00 Procrit IV TTS GRISELDA Famotidine 20 mg 06/22/17 09:00 06/22/17 10:19 Pepcid PO 20 mg BID GRISELDA Administration Glipizide 10 mg 06/22/17 09:00 06/22/17 10:17 Glucotrol PO 10 mg BID GRISELDA Administration Insulin Human Lispro 0 units 06/21/17 22:00 06/22/17 12:50 Humalog SC Not Given ACHS [facility] Protocol Metoprolol Tartrate 50 mg 06/21/17 09:00 06/22/17 10:19 Lopressor PO 50 mg BID GRISELDA Administration Ondansetron HCl 4 mg 06/22/17 08:40 Zofran Inj IVP Q6 PRN Nausea/Vomiting Ondansetron HCl 4 mg 06/22/17 12:33 Zofran Odt PO Q8H PRN Nausea/Vomiting Sertraline HCl 50 mg 06/21/17 22:00 06/21/17 21:35 Zoloft PO 50 mg HS [facility] Administration Sevelamer HCl 3,200 mg 06/22/17 09:00 06/22/17 12:50 Renagel PO Not Given TID GRISELDA - Patient Studies Lab Studies: Microbiology Studies 06/21/17 10:30 S.aureus & Coag-Neg Staph PNA FISH - Final Blood-Venous Blood Culture - Preliminary Gram Positive Cocci Gram Stain - Final 06/21/17 11:06 Blood Culture - Preliminary Blood-Venous Gram Positive Cocci Gram Stain - Final Lab Studies 06/22/17 06/22/17 06/22/17 Range/Units 12:45 12:45 12:13 WBC 6.7 (4.8-10.8) K/uL RBC 3.25 L (4.40-5.90) Mil/uL Hgb 10.1 L (12.0-18.0) g/dL Hct 30.8 L (35.0-51.0) % MCV 94.6 H (80.0-94.0) fl MCH 31.1 H (27.0-31.0) pg MCHC 32.9 L (33.0-37.0) g/dL RDW 16.7 H (11.5-14.5) % Plt Count 74 L (130-400) K/uL MPV 9.1 (7.2-11.7) fl Neut % (Auto) 78.6 H (50.0-75.0) % Lymph % (Auto) 10.5 L (20.0-40.0) % Steele % (Auto) 9.9 (0.0-10.0) % Eos % (Auto) 0.3 (0.0-4.0) % Baso % (Auto) 0.7 (0.0-2.0) % Neut # (Auto) 5.3 (1.8-7.0) K/uL Lymph # (Auto) 0.7 L (1.0-4.3) K/uL Steele # (Auto) 0.7 (0.0-0.8) K/uL Eos # (Auto) 0.0 (0.0-0.7) K/uL Baso # (Auto) 0.0 (0.0-0.2) K/uL pCO2 46 H (35-45) mm/Hg pO2 69 L (80-100) mm/Hg HCO3 26.2 (21-28) mmol/L ABG pH 7.38 (7.35-7.45) ABG Total CO2 28.6 H (22-28) mmol/L ABG O2 Saturation 97.4 (95-98) % ABG Base Excess 1.7 (-2.0-3.0) mmol/L Ari Test Yes ABG Potassium 4.9 (3.6-5.2) mmol/L A-a O2 Difference 73.0 mm/Hg Sodium 139 135.0 (132-148) mmol/L Chloride 98 101.0 (98-107) mmol/L Glucose 172 H (75-110) mg/dL Lactate 1.1 (0.7-2.1) mmol/L Liter Flow 2 FiO2 28.0 % Potassium 4.8 (3.6-5.0) MMOL/L Carbon Dioxide 25 (22-30) mmol/L Anion Gap 21 H (10-20) BUN 63 H (9-20) mg/dl Creatinine 5.8 H (0.8-1.5) mg/dl Est GFR ( Amer) 12 Est GFR (Non-Af Amer) 10 POC Glucose (mg/dL) (65-110) mg/dL Random Glucose 154 H (75-110) mg/dL Calcium 8.9 (8.4-10.2) mg/dL Arterial Blood Potassium 4.9 (3.6-5.2) mmol/L Influenza Typ A,B (EIA) (NEGATIVE) 06/22/17 06/22/17 06/22/17 Range/Units 12:08 11:16 05:15 WBC (4.8-10.8) K/uL RBC (4.40-5.90) Mil/uL Hgb (12.0-18.0) g/dL Hct (35.0-51.0) % MCV (80.0-94.0) fl MCH (27.0-31.0) pg MCHC (33.0-37.0) g/dL RDW (11.5-14.5) % Plt Count (130-400) K/uL MPV (7.2-11.7) fl Neut % (Auto) (50.0-75.0) % Lymph % (Auto) (20.0-40.0) % Steele % (Auto) (0.0-10.0) % Eos % (Auto) (0.0-4.0) % Baso % (Auto) (0.0-2.0) % Neut # (Auto) (1.8-7.0) K/uL Lymph # (Auto) (1.0-4.3) K/uL Steele # (Auto) (0.0-0.8) K/uL Eos # (Auto) (0.0-0.7) K/uL Baso # (Auto) (0.0-0.2) K/uL pCO2 (35-45) mm/Hg pO2 (80-100) mm/Hg HCO3 (21-28) mmol/L ABG pH (7.35-7.45) ABG Total CO2 (22-28) mmol/L ABG O2 Saturation (95-98) % ABG Base Excess (-2.0-3.0) mmol/L Ari Test ABG Potassium (3.6-5.2) mmol/L A-a O2 Difference mm/Hg Sodium (132-148) mmol/L Chloride (98-107) mmol/L Glucose (75-110) mg/dL Lactate (0.7-2.1) mmol/L Liter Flow FiO2 % Potassium (3.6-5.0) MMOL/L Carbon Dioxide (22-30) mmol/L Anion Gap (10-20) BUN (9-20) mg/dl Creatinine (0.8-1.5) mg/dl Est GFR ( Amer) Est GFR (Non-Af Amer) POC Glucose (mg/dL) 182 H 158 H 143 H (65-110) mg/dL Random Glucose (75-110) mg/dL Calcium (8.4-10.2) mg/dL Arterial Blood Potassium (3.6-5.2) mmol/L Influenza Typ A,B (EIA) (NEGATIVE) 06/21/17 06/21/17 Range/Units 22:20 15:35 WBC (4.8-10.8) K/uL RBC (4.40-5.90) Mil/uL Hgb (12.0-18.0) g/dL Hct (35.0-51.0) % MCV (80.0-94.0) fl MCH (27.0-31.0) pg MCHC (33.0-37.0) g/dL RDW (11.5-14.5) % Plt Count (130-400) K/uL MPV (7.2-11.7) fl Neut % (Auto) (50.0-75.0) % Lymph % (Auto) (20.0-40.0) % Steele % (Auto) (0.0-10.0) % Eos % (Auto) (0.0-4.0) % Baso % (Auto) (0.0-2.0) % Neut # (Auto) (1.8-7.0) K/uL Lymph # (Auto) (1.0-4.3) K/uL Steele # (Auto) (0.0-0.8) K/uL Eos # (Auto) (0.0-0.7) K/uL Baso # (Auto) (0.0-0.2) K/uL pCO2 (35-45) mm/Hg pO2 (80-100) mm/Hg HCO3 (21-28) mmol/L ABG pH (7.35-7.45) ABG Total CO2 (22-28) mmol/L ABG O2 Saturation (95-98) % ABG Base Excess (-2.0-3.0) mmol/L Ari Test ABG Potassium (3.6-5.2) mmol/L A-a O2 Difference mm/Hg Sodium (132-148) mmol/L Chloride (98-107) mmol/L Glucose (75-110) mg/dL Lactate (0.7-2.1) mmol/L Liter Flow FiO2 % Potassium (3.6-5.0) MMOL/L Carbon Dioxide (22-30) mmol/L Anion Gap (10-20) BUN (9-20) mg/dl Creatinine (0.8-1.5) mg/dl Est GFR ( Amer) Est GFR (Non-Af Amer) POC Glucose (mg/dL) 226 H (65-110) mg/dL Random Glucose (75-110) mg/dL Calcium (8.4-10.2) mg/dL Arterial Blood Potassium (3.6-5.2) mmol/L Influenza Typ A,B (EIA) Negative for flu a/b (NEGATIVE) Laboratory Results - last 24 hr 06/21/17 06/21/17 06/22/17 15:35 22:20 05:15 WBC RBC Hgb Hct MCV MCH MCHC RDW Plt Count MPV Neut % (Auto) Lymph % (Auto) Steele % (Auto) Eos % (Auto) Baso % (Auto) Neut # (Auto) Lymph # (Auto) Steele # (Auto) Eos # (Auto) Baso # (Auto) pCO2 pO2 HCO3 ABG pH ABG Total CO2 ABG O2 Saturation ABG Base Excess Ari Test ABG Potassium A-a O2 Difference Sodium Chloride Glucose Lactate Liter Flow FiO2 Potassium Carbon Dioxide Anion Gap BUN Creatinine Est GFR ( Amer) Est GFR (Non-Af Amer) POC Glucose (mg/dL) 226 H 143 H Random Glucose Calcium Arterial Blood Potassium Influenza Typ A,B (EIA) Negative for flu a/b 06/22/17 06/22/17 06/22/17 11:16 12:08 12:13 WBC RBC Hgb Hct MCV MCH MCHC RDW Plt Count MPV Neut % (Auto) Lymph % (Auto) Steele % (Auto) Eos % (Auto) Baso % (Auto) Neut # (Auto) Lymph # (Auto) Steele # (Auto) Eos # (Auto) Baso # (Auto) pCO2 46 H pO2 69 L HCO3 26.2 ABG pH 7.38 ABG Total CO2 28.6 H ABG O2 Saturation 97.4 ABG Base Excess 1.7 Ari Test Yes ABG Potassium 4.9 A-a O2 Difference 73.0 Sodium 135.0 Chloride 101.0 Glucose 172 H Lactate 1.1 Liter Flow 2 FiO2 28.0 Potassium Carbon Dioxide Anion Gap BUN Creatinine Est GFR ( Amer) Est GFR (Non-Af Amer) POC Glucose (mg/dL) 158 H 182 H Random Glucose Calcium Arterial Blood Potassium 4.9 Influenza Typ A,B (EIA) 06/22/17 06/22/17 12:45 12:45 WBC 6.7 RBC 3.25 L Hgb 10.1 L Hct 30.8 L MCV 94.6 H MCH 31.1 H MCHC 32.9 L RDW 16.7 H Plt Count 74 L MPV 9.1 Neut % (Auto) 78.6 H Lymph % (Auto) 10.5 L Steele % (Auto) 9.9 Eos % (Auto) 0.3 Baso % (Auto) 0.7 Neut # (Auto) 5.3 Lymph # (Auto) 0.7 L Steele # (Auto) 0.7 Eos # (Auto) 0.0 Baso # (Auto) 0.0 pCO2 pO2 HCO3 ABG pH ABG Total CO2 ABG O2 Saturation ABG Base Excess Ari Test ABG Potassium A-a O2 Difference Sodium 139 Chloride 98 Glucose Lactate Liter Flow FiO2 Potassium 4.8 Carbon Dioxide 25 Anion Gap 21 H BUN 63 H Creatinine 5.8 H Est GFR ( Amer) 12 Est GFR (Non-Af Amer) 10 POC Glucose (mg/dL) Random Glucose 154 H Calcium 8.9 Arterial Blood Potassium Influenza Typ A,B (EIA) Fingerstick Blood Sugar Results: 143
--- NOTE | 2017-06-22 15:19 | CT ---
PROCEDURE: CT Chest with contrast (Pulmonary Angiogram) HISTORY: r/o PE COMPARISON: None available. TECHNIQUE: Axial computed tomography images were obtained of the chest in the pulmonary arterial phase of enhancement. Coronal and sagittal reformatted images were created and reviewed. Intravenous contrast dose: 95 mL of Visipaque 320 Radiation dose: Total exam DLP = 472 mGy-cm. This CT exam was performed using one or more of the following dose reduction techniques: Automated exposure control, adjustment of the mA and/or kV according to patient size, and/or use of iterative reconstruction technique. FINDINGS: PULMONARY ARTERIES: No pulmonary embolism of the central or segmental pulmonary arterial branches noted. Evaluation for smaller emboli in the subsegmental more peripheral pulmonary arteries is limited. AORTA: No acute findings. No thoracic aortic aneurysm. LUNGS: . No nodule, mass or pulmonary consolidation. Trace posterior dependent atelectatic changes noted. Central airways are patent PLEURAL SPACES: Minimal right posterior pleural thickening with contiguous trace dependent atelectatic changes. No significant appearing effusion or pneuomothorax. HEART: Cardiomegaly with coronary artery calcifications. . No significant pericardial effusion. LYMPH NODES: No lymphadenopathy. BONES, CHEST WALL: . No fracture or destructive lesion . Thoracic spondylosis noted. Developmental variation suggested to the sterno xiphoid junction OTHER FINDINGS: Ascites, splenomegaly. An upper abdominal atherosclerotic vascular calcifications. Patient is noted to have chronic renal failure and is going for dialysis following this exam IMPRESSION: . No central or segmental pulmonary embolus. . Trace right posterior inferior pleural thickening with trace dependent atelectatic changes. Ascites. Splenomegaly. Atherosclerotic vascular disease.
--- NOTE | 2017-06-22 23:37 | HP ---
HISTORY OF PRESENT ILLNESS: This is a 61-year-old male with history of multiple medical problems including end-stage renal disease, on hemodialysis; degenerative spine disease with radiculopathy and difficulty ambulation. The patient was scheduled to have cataract surgery on the day of admission. The patient was found to be lethargic and having fever 102. The patient was transferred to emergency room for evaluation and admitted for further management. Blood cultures were done in the emergency room and it grew Gram-positive cocci. The patient was started on IV antibiotics and due to the lethargy and the patient is severely lethargic with fever, the patient was transferred to Intensive Care Unit for further management. REVIEW OF SYSTEMS: Other review of system, the patient was lethargic and not able to give any further history at the time of this examination. ALLERGIES: RECORDED, THE PATIENT HAS ALLERGY TO CIPROFLOXACIN, PENICILLIN, AND PROPOFOL. SOCIAL HISTORY: No history of smoking, EtOH, or substance abuse. FAMILY HISTORY: Noncontributory. MEDICATIONS: As per MAR. PHYSICAL EXAMINATION: GENERAL: The patient is in bed, lethargic, and not in any cardiopulmonary distress at the time of this examination. VITAL SIGNS: Blood pressure 110/65, temperature 99.1, respiratory rate 19, and pulse 77. HEENT: Slightly pale mucosa of the conjunctivae. NECK: Supple. No JVD. No carotid bruit. No lymph node. No thyromegaly. CHEST AND LUNGS: Bilateral symmetrical expansion. Good air exchange. No rales. No rhonchi. CARDIOVASCULAR: PMI not localized. S1 and S2, irregularly irregular. ABDOMEN: Decreased bowel sounds. No tenderness. No organomegaly. No masses. EXTREMITIES: No cyanosis. No clubbing. There is chronic skin changes on both lower extremities. CENTRAL NERVOUS SYSTEM: The patient is lethargic, but he follows simple commands and he has weakness of both lower extremities, right more than the left, which was old. ASSESSMENT: Gram-positive cocci bacteremia; end-stage renal disease, on hemodialysis; atrial fibrillation was controlled ventricular rate, degenerative spine disease with radiculopathy. PLAN: ID consult and start the patient on vancomycin. CT angiogram of the chest was ordered. I discussed the patient's condition with the service line bus cleaner. [facility] MD [facility] # [id number]
--- NOTE | 2017-06-23 07:04 | CP.CCUPN ---
CCU Subjective - Physician Review Subjective (Free Text): Still not back to his usual neuromental status baseline, slept thru most of HD yesterday, but family noted BP levels much lower than usual by more than 70-80 systolic points. No new focal deficits noted, and CT Brain negative, as well as CTA Chest (low suspicion for PTE). BP levels overnight hae been stable but still much lower than patient's usual levels. Otherwise he is easily arousable, and responds appropriately, but not spontaneously awake. Other vitals and I/O's reviewed. No fever spikes. PMSFH: Otherwise, all Nursing and physician documentation reviewed to date; no new pertinent info noted relevant to current medical problems. EXAM- HEENT: no icterus, no gaze preference, pupils equal and reactive NECK: No JVD, supple, carotids equal upstroke bilat/no bruits CHEST: decreased BS bases, no wheezes audible HEART: regular, distant, S1S2, no rubs. ABD: soft, no distention, no tympany, no palp tenderness, BS hypoactive. EXT: R > L edema. No peripheral/ digital cyanosis, no calf tenderness or palpable cords, distal pulses intact and symmetrical. RUE AVF with good bruit and thrill. NEURO: no focal gross motor deficits SKIN: no rashes, warm and dry. Multiple bite browne over distal digits, LABS: (today's repeat bloodwork pending) Yesterday's: WBC= 6.7 HGB= 10.1 PLTs= 74K 7.38/46/69 Xo=010 K= 4.8 CL= 98 HCO3= 25 BUN/Cr= 63/5.8 FP=770 Lactate = 1.1 Alk Phos = 310; GB on Abd US negative EKG 06/21: A Fib 75, LAHB, poor R progression anteriorly, no acute changes ( my interp). CTA Chest reviewed: no PTE. US Abdomen: no unexpected findings. IMPRESSION / MAJOR PROBLEMS NOW: 1. AMS, r/o structural SENIOR LINUX UNIX ENGINEER pathology versus metabolic Encephalopathy; and / or Medication-Induced Adverse Effects ( low BP) 2. Desaturation / Hypoxemia prompting GERIATRIC SOCIAL WORK PROFESSOR call. 3. Bacteremia with GPC 4. ESRD on CAHD PLAN: 1. Consider US Venous Doppler Legs. 2. Consider repeat CT brain or MRI to r/o occult CVA from low BP levels. Would get formal Neurology eval. Otherwise, possible Sepsis Encephalopathy. 3. Holding all meds with SENIOR LINUX UNIX ENGINEER effects: Percocet, Zoloft, Clonidine ( tapered), Alprazolam. 4 ECHO and Repeat Blood cultures, now 2 Blood culture bottles are positive. So far no evidence of severe sepsis or shock state. Already recd one dose Vanco yesterday and again post HD. 5. Does not appear to need assisted breathing or ventilatory support at this time. 6. Clarify any Advance Directives, none on chart. CCU Objective - Vital Signs / Intake & Output Vital Signs (Last 4 hours): Vital Signs Pulse Resp Pulse Ox 06/23/17 03:37 78 18 98
[2017-06-23] MEDS: Insulin Lispro (humaLOG) 100 Units/ml Inj SC SCH ×4 (08:00→21:44)
[2017-06-23] MEDS: Cholecalciferol 1,000 INTLU TAB PO SCH (08:40)
[2017-06-23 08:45] LABS: BASO % 0.6 % (0.0-2.0); EOS # 0.1 K/uL (0.0-0.7); EOS % 0.8 % (0.0-4.0); HEMOGLOBIN 9.8 g/dL (12.0-18.0); LYMPH # 0.8 K/uL (1.0-4.3); LYMPH % 11.2 % (20.0-40.0); MEAN CELL VOLUME 94.6 fl (80.0-94.0); MEAN CORPUSCULAR HEMOGLOBIN 31.2 pg (27.0-31.0); MEAN PLATELET VOLUME 9.1 fl (7.2-11.7); MONO # 0.9 K/uL (0.0-0.8); MONO % 11.5 % (0.0-10.0); NEUT # 5.6 K/uL (1.8-7.0); NEUT % 75.9 % (50.0-75.0); NRBC % 0.1 % (0.0-0.0); RBC 3.13 Mil/uL (4.40-5.90); RED CELL DISTRIBUTION WIDTH 16.6 % (11.5-14.5); WHITE BLOOD COUNT 7.4 K/uL (4.8-10.8)
[2017-06-23] MEDS ORDERED: Oxycodone/Acetaminophen 5/325 mg Tab PO SCH (09:00)
[2017-06-23 09:24] LABS: ALBUMIN 3.7 g/dL (3.5-5.0); CALCIUM 9.2 mg/dL (8.4-10.2)
[2017-06-23] MEDS: Epoetin Alfa 20000 UNIT/ML (RENAL DOSE) IV SCH (10:30)
--- NOTE | 2017-06-23 11:27 | CP.PCM.CON ---
History of Present Illness - History of Present Illness History of Present Illness: Mr. Lubin is a 61 M PMH significant for ESRD on HD, AFIB, DM, CHF, CAD, HTN, HLD , SLEEP APNEA, TIA 2010,had an episode of SLEEPING BAG FILLER yesterday due to low saturation and change of mental status. He was admitted with fever and bacteremia for lethargy. As per staff patient is not his usual self , appears mere lethargic, responds to verbal command,easily waking up, patient is afebrile , BP 127/74 HR 84 saturating 100 5 in 2 L O2 via NC BS 182. The patient is on antibiotic therapy. The patient had an extra treatment yesterday and received all his antihypertensive medications. At present his blood pressure is 126/81, HR 59, SPO2- 96%. with no focal neuro deficits noted. He is alert, oriented and state of being back to his baseline. Review of Systems - Review of Systems All systems: reviewed and no additional remarkable complaints except Past Patient History - Infectious Disease Hx of Infectious Diseases: None - Past Medical History & Family History Past Medical History?: Yes - Past Social History Smoking Status: Never Smoked - CARDIAC Hx Atrial Fibrillation: Yes Hx Cardia Arrhythmia: Yes Hx Congestive Heart Failure: Yes Hx Hypercholesterolemia: Yes Hx Hypertension: Yes - PULMONARY Hx Pneumonia: Yes Hx Sleep Apnea: Yes Other/Comment: 0n 02 at home - NEUROLOGICAL Hx Dizziness: Yes Hx Transient Ischemic Attacks (TIA): Yes (2010) Other/Comment: periods of confusion when not feeling well - HEENT Hx HEENT Problems: Yes (RETINOPATHY/CATARACT) Hx Cataracts: Yes - RENAL Hx Chronic Kidney Disease: Yes Hx Dialysis: Yes Type of Dialysis Access: av shunt Date of Last Dialysis Treatment: 06/21/17 - ENDOCRINE/METABOLIC Hx Diabetes Mellitus Type 2: Yes Hx Hypothyroidism: No - HEMATOLOGICAL/ONCOLOGICAL Hx Anemia: Yes - INTEGUMENTARY Hx Dermatological Problems: Yes Other/Comment: ULCER BACK RIGHT THIGH - MUSCULOSKELETAL/RHEUMATOLOGICAL Hx Falls: No Hx Fractures: Yes (Right foot surgery) - GASTROINTESTINAL Hx Gastrointestinal Disorders: Yes Hx Gastroesophageal Reflux: Yes Other/Comment: CONSTIPATION. ELEVATED LFTS. 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 LEFT HAND 1ST AND FOURTH DIGIT AMPUTATION 2016 - ANESTHESIA Hx Anesthesia: Yes Hx Anesthesia Reactions: Yes (PROPOFOL (CARDIAC ARREST)) Hx Malignant Hyperthermia: No Meds Allergies/Adverse Reactions: Allergies Allergy/AdvReac Type Severity Reaction Status Date / Time ciprofloxacin Allergy SWELLING Verified 06/21/17 10:25 Penicillins Allergy ANAPHYLAXIS Verified 06/21/17 10:25 propofol Allergy ANAPHYLAXIS Verified 06/21/17 10:25 vitamin K2 Allergy SHORTNESS Verified 06/21/17 10:25 OF BREATH diphenhydramine HCl AdvReac ITCHING Verified 06/21/17 10:25 [From Jeff] surgical tape Allergy REDNESS Uncoded 06/21/17 10:25 - Medications Medications: Current Medications Acetaminophen (Tylenol 325mg Tab) 650 mg PO Q4 [facility] Last Admin: 06/22/17 10:16 Dose: 650 mg Acetaminophen (Tylenol 325mg Tab) 650 mg PO Q4 PRN PRN Reason: Pain, Mild (1-3) Last Admin: 06/23/17 04:01 Dose: 650 mg Alprazolam (Xanax) 0.5 mg PO [facility] Last Admin: 06/21/17 21:35 Dose: 0.5 mg Aspirin (Ecotrin) 81 mg PO DAILY [facility] Last Admin: 06/23/17 08:38 Dose: 81 mg Atorvastatin Calcium (Lipitor) 20 mg PO HS [facility] Last Admin: 06/22/17 21:34 Dose: 20 mg Calcitriol (Rocaltrol) 0.25 mcg PO DAILY [facility] Last Admin: 06/23/17 08:40 Dose: 0.25 mcg Cholecalciferol (Vitamin D) 1,000 intlu PO DAILY [facility] Last Admin: 06/23/17 08:40 Dose: 1,000 intlu Clonidine HCl (Catapres) 0.2 mg PO TID [facility] Last Admin: 06/22/17 10:17 Dose: 0.2 mg Clonidine HCl (Catapres) 0.1 mg PO BID [facility] Clopidogrel Bisulfate (Plavix) 75 mg PO DAILY [facility] Last Admin: 06/23/17 08:39 Dose: 75 mg Epoetin Alexy (Procrit) 8,000 unit IV TTS [facility] Last Admin: 06/23/17 10:30 Dose: 8,000 unit Famotidine (Pepcid) 20 mg PO BID [facility] Last Admin: 06/23/17 08:39 Dose: 20 mg Glipizide (Glucotrol) 10 mg PO BID [facility] Last Admin: 06/23/17 08:38 Dose: 10 mg Vancomycin HCl 1 gm/ Sodium (Chloride) 250 mls @ 125 mls/hr IVPB MWF [facility] PRN Reason: Protocol Vancomycin HCl 1 gm/ Sodium (Chloride) 250 mls @ 125 mls/hr IVPB [facility] PRN Reason: Protocol Stop: 06/24/17 09:06 Last Admin: 06/23/17 10:29 Dose: 125 mls/hr Insulin Human Lispro (Humalog) 0 units SC ACHS [facility] PRN Reason: Protocol Last Admin: 06/23/17 08:00 Dose: Not Given Metoprolol Tartrate (Lopressor) 50 mg PO BID [facility] Last Admin: 06/22/17 16:41 Dose: Not Given Metoprolol Tartrate (Lopressor) 12.5 mg PO Q12 [facility] Ondansetron HCl (Zofran Inj) 4 mg IVP Q6 PRN PRN Reason: Nausea/Vomiting Ondansetron HCl (Zofran Odt) 4 mg PO Q8H PRN PRN Reason: Nausea/Vomiting Sertraline HCl (Zoloft) 50 mg PO HS [facility] Last Admin: 06/21/17 21:35 Dose: 50 mg Sevelamer HCl (Renagel) 3,200 mg PO TID [facility] Last Admin: 06/23/17 08:39 Dose: 3,200 mg Physical Exam - Constitutional Appears: No Acute Distress - Head Exam Head Exam: NORMAL INSPECTION - Eye Exam Eye Exam: EOMI Pupil Exam: Miosis, PERRL - ENT Exam ENT Exam: Mucous Membranes Moist, Normal Exam - Neck Exam Neck exam: Positive for: Normal Inspection - Respiratory Exam Respiratory Exam: Accessory Muscle Use - Cardiovascular Exam Cardiovascular Exam: +S1, +S2 - GI/Abdominal Exam GI & Abdominal Exam: Normal Bowel Sounds, Soft. 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) Sensory exam: Lower Extremity 2 Point Discrimination: Normal, Lower Extremity Light Touch: Normal (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), Lower Extremity Pin Prick: Normal (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), Lower Extremity Temperature: Normal, Upper Extremity 2 Point Discrimination: Normal, Upper Extremity Light Touch: Normal, Upper Extremity Pin Prick: Normal, Upper Extremity Temperature: Normal Neuro motor strength exam: Left Upper Extremity: 5, Right Upper Extremity: 5, Left Lower Extremity: 5, Right Lower Extremity: 5 Coma Scale Eye Opening: SPONTANEOUS Coma Scale Motor Response: OBEYS COMMANDS Coma Scale Verbal: Oriented Coma Scale Total: 15 - Psychiatric Exam Psychiatric exam: Normal Affect, Normal Mood Results - Vital Signs Recent Vital Signs: Last Vital Signs Temp 98.0 F 06/23/17 08:00 Pulse 68 06/23/17 08:00 Resp 15 06/23/17 08:00 BP 122/64 06/23/17 08:00 Pulse Ox 98 06/23/17 08:00 - Labs Result Diagrams: 06/23/17 08:34 06/23/17 08:34 Labs: Laboratory Results - last 24 hr 06/22/17 06/22/17 06/22/17 11:16 12:08 12:13 WBC RBC Hgb Hct MCV MCH MCHC RDW Plt Count MPV Neut % (Auto) Lymph % (Auto) [place] % (Auto) Eos % (Auto) Baso % (Auto) Neut # (Auto) Lymph # (Auto) [place] # (Auto) Eos # (Auto) Baso # (Auto) pCO2 46 H pO2 69 L HCO3 26.2 ABG pH 7.38 ABG Total CO2 28.6 H ABG O2 Saturation 97.4 ABG Base Excess 1.7 Ari Test Yes ABG Potassium 4.9 A-a O2 Difference 73.0 Sodium 135.0 Chloride 101.0 Glucose 172 H Lactate 1.1 Liter Flow 2 FiO2 28.0 Potassium Carbon Dioxide Anion Gap BUN Creatinine Est GFR ( Amer) Est GFR (Non-Af Amer) POC Glucose (mg/dL) 158 H 182 H Random Glucose Calcium Total Bilirubin AST ALT Alkaline Phosphatase Total Protein Albumin Globulin Albumin/Globulin Ratio Arterial Blood Potassium 4.9 06/22/17 06/22/17 06/22/17 12:45 12:45 16:33 WBC 6.7 RBC 3.25 L Hgb 10.1 L Hct 30.8 L MCV 94.6 H MCH 31.1 H MCHC 32.9 L RDW 16.7 H Plt Count 74 L MPV 9.1 Neut % (Auto) 78.6 H Lymph % (Auto) 10.5 L [place] % (Auto) 9.9 Eos % (Auto) 0.3 Baso % (Auto) 0.7 Neut # (Auto) 5.3 Lymph # (Auto) 0.7 L [place] # (Auto) 0.7 Eos # (Auto) 0.0 Baso # (Auto) 0.0 pCO2 pO2 HCO3 ABG pH ABG Total CO2 ABG O2 Saturation ABG Base Excess Ari Test ABG Potassium A-a O2 Difference Sodium 139 Chloride 98 Glucose Lactate Liter Flow FiO2 Potassium 4.8 Carbon Dioxide 25 Anion Gap 21 H BUN 63 H Creatinine 5.8 H Est GFR ( Amer) 12 Est GFR (Non-Af Amer) 10 POC Glucose (mg/dL) 108 Random Glucose 154 H Calcium 8.9 Total Bilirubin AST ALT Alkaline Phosphatase Total Protein Albumin Globulin Albumin/Globulin Ratio Arterial Blood Potassium 06/22/17 06/23/17 06/23/17 21:09 05:42 08:34 WBC 7.4 RBC 3.13 L Hgb 9.8 L Hct 29.6 L MCV 94.6 H MCH 31.2 H MCHC 33.0 RDW 16.6 H Plt Count 83 L MPV 9.1 Neut % (Auto) 75.9 H Lymph % (Auto) 11.2 L [place] % (Auto) 11.5 H Eos % (Auto) 0.8 Baso % (Auto) 0.6 Neut # (Auto) 5.6 Lymph # (Auto) 0.8 L [place] # (Auto) 0.9 H Eos # (Auto) 0.1 Baso # (Auto) 0.0 pCO2 pO2 HCO3 ABG pH ABG Total CO2 ABG O2 Saturation ABG Base Excess Ari Test ABG Potassium A-a O2 Difference Sodium Chloride Glucose Lactate Liter Flow FiO2 Potassium Carbon Dioxide Anion Gap BUN Creatinine Est GFR ( Amer) Est GFR (Non-Af Amer) POC Glucose (mg/dL) 98 84 Random Glucose Calcium Total Bilirubin AST ALT Alkaline Phosphatase Total Protein Albumin Globulin Albumin/Globulin Ratio Arterial Blood Potassium 06/23/17 08:34 WBC RBC Hgb Hct MCV MCH MCHC RDW Plt Count MPV Neut % (Auto) Lymph % (Auto) [place] % (Auto) Eos % (Auto) Baso % (Auto) Neut # (Auto) Lymph # (Auto) [place] # (Auto) Eos # (Auto) Baso # (Auto) pCO2 pO2 HCO3 ABG pH ABG Total CO2 ABG O2 Saturation ABG Base Excess Ari Test ABG Potassium A-a O2 Difference Sodium 138 Chloride 96 L Glucose Lactate Liter Flow FiO2 Potassium 4.2 Carbon Dioxide 26 Anion Gap 20 BUN 45 H Creatinine 4.3 H Est GFR ( Amer) 17 Est GFR (Non-Af Amer) 14 POC Glucose (mg/dL) Random Glucose 84 Calcium 9.2 Total Bilirubin 1.1 AST 30 ALT 27 Alkaline Phosphatase 236 H D Total Protein 7.5 Albumin 3.7 Globulin 3.7 Albumin/Globulin Ratio 1.0 Arterial Blood Potassium - Imaging and Cardiology CT scan - head Status: Image reviewed by me (06/22/[address] Whitmore which showed no acute intracranial abnormalities. No significant findings to account for clinical presentation. No significant interval change compared from prior examination.) Assessment & Plan (1) Encephalopathy acute Assessment and Plan: Mr. Lubin is a 61 M PMH significant for ESRD on HD, AFIB, DM, CHF, CAD, HTN, HLD , SLEEP APNEA, TIA 2010,had an episode of SLEEPING BAG FILLER yesterday due to low saturation and change of mental status. Case discussed with Dr. Hale, recommend the followin. ICU 2. Continue aspirin 81 mg PO daily, Plavix 75 mg PO daily 3. Statin maintain LDL < 70, continue lipitor 20 mg PO HS 4. Recommend to treat any underlying infection and electrolyte abnormalities 5. Permissive HTN, keep blood pressure at least systolic 160-170 and diastolic above 90 to maintain brain perfusion. 6. PT/ OT eval and treat 7. Repeat CT scan of the head without contrast to monitor/ evaluate any brain pathology. 8. Medical management to his other medical co-morbidities. Thank You. Status: Acute
--- NOTE | 2017-06-23 12:37 | CT ---
PROCEDURE: CT HEAD WITHOUT CONTRAST. HISTORY: encephalopathy COMPARISON: 06/22/2017 TECHNIQUE: Axial computed tomography images were obtained through the head/brain without intravenous contrast. Radiation dose: Total exam DLP = 871.51 mGy-cm. This CT exam was performed using one or more of the following dose reduction techniques: Automated exposure control, adjustment of the mA and/or kV according to patient size, and/or use of iterative reconstruction technique. FINDINGS: HEMORRHAGE: No intracranial hemorrhage. BRAIN: No mass effect or edema. No atrophy or chronic microvascular ischemic changes. VENTRICLES: Unremarkable. No hydrocephalus. CALVARIUM: Unremarkable. PARANASAL SINUSES: Unremarkable as visualized. No significant inflammatory changes. MASTOID AIR CELLS: Unremarkable as visualized. No inflammatory changes. OTHER FINDINGS: None. IMPRESSION: No intracranial mass, hemorrhage or evidence of acute infarct. No interval change.
--- NOTE | 2017-06-23 13:23 | CP.PCM.PN ---
Subjective - Date & Time of Evaluation Date of Evaluation: 06/23/17 Time of Evaluation: 13:23 - Subjective Subjective: ID Note- Patient seen and examined in ICU today. patient much more awake and alert today. he states he started to notice in his right thumb starting last night and he noticed that it is edematous and red today. He denies any fever or chills. Objective - Vital Signs/Intake and Output Vital Signs (last 24 hours): Temp Pulse Resp BP Pulse Ox 98.4 F 78 14 140/79 92 L 06/23/17 12:00 06/23/17 12:00 06/23/17 12:00 06/23/17 12:00 06/23/17 12:00 - Medications Medications: Current Medications Acetaminophen (Tylenol 325mg Tab) 650 mg PO Q4 [facility] Last Admin: 06/22/17 10:16 Dose: 650 mg Acetaminophen (Tylenol 325mg Tab) 650 mg PO Q4 PRN PRN Reason: Pain, Mild (1-3) Last Admin: 06/23/17 04:01 Dose: 650 mg Alprazolam (Xanax) 0.5 mg PO [facility] Last Admin: 06/21/17 21:35 Dose: 0.5 mg Aspirin (Ecotrin) 81 mg PO DAILY [facility] Last Admin: 06/23/17 08:38 Dose: 81 mg Atorvastatin Calcium (Lipitor) 20 mg PO HS [facility] Last Admin: 06/22/17 21:34 Dose: 20 mg Calcitriol (Rocaltrol) 0.25 mcg PO DAILY [facility] Last Admin: 06/23/17 08:40 Dose: 0.25 mcg Cholecalciferol (Vitamin D) 1,000 intlu PO DAILY [facility] Last Admin: 06/23/17 08:40 Dose: 1,000 intlu Clonidine HCl (Catapres) 0.2 mg PO TID [facility] Last Admin: 06/22/17 10:17 Dose: 0.2 mg Clonidine HCl (Catapres) 0.1 mg PO BID [facility] Clopidogrel Bisulfate (Plavix) 75 mg PO DAILY [facility] Last Admin: 06/23/17 08:39 Dose: 75 mg Epoetin Alexy (Procrit) 8,000 unit IV TTS [facility] Last Admin: 06/23/17 10:30 Dose: 8,000 unit Famotidine (Pepcid) 20 mg PO BID [facility] Last Admin: 06/23/17 08:39 Dose: 20 mg Glipizide (Glucotrol) 10 mg PO BID [facility] Last Admin: 06/23/17 08:38 Dose: 10 mg Vancomycin HCl 1 gm/ Sodium (Chloride) 250 mls @ 125 mls/hr IVPB MWF [facility] PRN Reason: Protocol Vancomycin HCl 1 gm/ Sodium (Chloride) 250 mls @ 125 mls/hr IVPB POSTDI [facility] PRN Reason: Protocol Stop: 06/24/17 09:06 Last Admin: 06/23/17 10:29 Dose: 125 mls/hr Insulin Human Lispro (Humalog) 0 units SC ACHS [facility] PRN Reason: Protocol Last Admin: 06/23/17 12:00 Dose: Not Given Metoprolol Tartrate (Lopressor) 50 mg PO BID [facility] Last Admin: 06/22/17 16:41 Dose: Not Given Metoprolol Tartrate (Lopressor) 12.5 mg PO Q12 [facility] Ondansetron HCl (Zofran Inj) 4 mg IVP Q6 PRN PRN Reason: Nausea/Vomiting Ondansetron HCl (Zofran Odt) 4 mg PO Q8H PRN PRN Reason: Nausea/Vomiting Sertraline HCl (Zoloft) 50 mg PO HS [facility] Last Admin: 06/21/17 21:35 Dose: 50 mg Sevelamer HCl (Renagel) 3,200 mg PO TID [facility] Last Admin: 06/23/17 12:54 Dose: 3,200 mg - Labs Labs: - Additional Findings Additional findings: - Constitutional Appears: No Acute Distress, Chronically Ill - Head Exam Head Exam: ATRAUMATIC - Eye Exam Eye Exam: EOMI - ENT Exam ENT Exam: Normal Oropharynx - Neck Exam Neck exam: Positive for: Full Rom - Respiratory Exam Respiratory Exam: Clear to Auscultation Bilateral, NORMAL BREATHING PATTERN - Cardiovascular Exam Cardiovascular Exam: RRR, +S1, +S2 - GI/Abdominal Exam GI & Abdominal Exam: Normal Bowel Sounds, Soft Additional comments: NT, ND - Extremities Exam Additional comments: B/L le dark discoloration skin changes ( venous stasis) but warm to touch today left hand with multiple distal digit amputations right distal thumb to mid thumb region with edema, erythematous and somewhat tender to touch , no discharge, no open wounds per se but has bitten off nail bed - Neurological Exam Neurological exam: Alert, Oriented x 3 Laboratory Results - last 72 hr 06/21/17 06/21/17 06/21/17 10:36 11:02 11:02 WBC 6.2 D RBC 3.09 L Hgb 9.6 L Hct 29.3 L MCV 94.8 H D MCH 31.2 H MCHC 32.9 L RDW 16.7 H Plt Count 69 L D MPV 9.9 Neut % (Auto) 77.5 H Lymph % (Auto) 8.5 L [place] % (Auto) 11.6 H Eos % (Auto) 1.8 Baso % (Auto) 0.6 Neut # (Auto) 4.8 Lymph # (Auto) 0.5 L [place] # (Auto) 0.7 Eos # (Auto) 0.1 Baso # (Auto) 0.0 Neutrophils % (Manual) 77 H Lymphocytes % (Manual) 11 L Monocytes % (Manual) 9 Eosinophils % (Manual) 2 Basophils % (Manual) 1 Platelet Estimate Decreased L Hypochromasia (manual) Moderate Anisocytosis (manual) Slight PT INR APTT pCO2 pO2 45 HCO3 ABG pH ABG Total CO2 ABG O2 Saturation ABG Base Excess Ari Test ABG Potassium VBG pH 7.38 VBG pCO2 56 VBG HCO3 29.8 VBG Total CO2 34.8 H VBG O2 Sat (Calc) 85.3 H VBG Base Excess 6.7 H VBG Potassium 4.6 A-a O2 Difference Sodium 139.0 142 Chloride 103.0 98 Glucose 198 H Lactate 1.0 Liter Flow FiO2 21.0 Potassium 4.5 Carbon Dioxide 27 Anion Gap 22 H BUN 43 H Creatinine 4.0 H Est GFR ( Amer) 19 Est GFR (Non-Af Amer) 15 POC Glucose (mg/dL) Random Glucose 189 H Calcium 9.5 Phosphorus 3.8 Magnesium 2.2 Total Bilirubin 0.9 AST 19 ALT 37 Alkaline Phosphatase 310 H Ammonia Total Protein 8.1 Albumin 4.0 Globulin 4.1 H Albumin/Globulin Ratio 1.0 Lipase 107 TSH 3rd Generation 0.53 Arterial Blood Potassium Venous Blood Potassium 4.6 Influenza Typ A,B (EIA) Blood Type Antibody Screen BBK History Checked 06/21/17 06/21/17 06/21/17 11:02 11:02 11:15 WBC RBC Hgb Hct MCV MCH MCHC RDW Plt Count MPV Neut % (Auto) Lymph % (Auto) [place] % (Auto) Eos % (Auto) Baso % (Auto) Neut # (Auto) Lymph # (Auto) [place] # (Auto) Eos # (Auto) Baso # (Auto) Neutrophils % (Manual) Lymphocytes % (Manual) Monocytes % (Manual) Eosinophils % (Manual) Basophils % (Manual) Platelet Estimate Hypochromasia (manual) Anisocytosis (manual) PT 12.3 INR 1.1 APTT 33.9 pCO2 pO2 HCO3 ABG pH ABG Total CO2 ABG O2 Saturation ABG Base Excess Ari Test ABG Potassium VBG pH VBG pCO2 VBG HCO3 VBG Total CO2 VBG O2 Sat (Calc) VBG Base Excess VBG Potassium A-a O2 Difference Sodium Chloride Glucose Lactate Liter Flow FiO2 Potassium Carbon Dioxide Anion Gap BUN Creatinine Est GFR ( Amer) Est GFR (Non-Af Amer) POC Glucose (mg/dL) Random Glucose Calcium Phosphorus Magnesium Total Bilirubin AST ALT Alkaline Phosphatase Ammonia 30 Total Protein Albumin Globulin Albumin/Globulin Ratio Lipase TSH 3rd Generation Arterial Blood Potassium Venous Blood Potassium Influenza Typ A,B (EIA) Blood Type O POSITIVE Antibody Screen Negative BBK History Checked Patient has bt 06/21/17 06/21/17 06/22/17 15:35 22:20 05:15 WBC RBC Hgb Hct MCV MCH MCHC RDW Plt Count MPV Neut % (Auto) Lymph % (Auto) [place] % (Auto) Eos % (Auto) Baso % (Auto) Neut # (Auto) Lymph # (Auto) [place] # (Auto) Eos # (Auto) Baso # (Auto) Neutrophils % (Manual) Lymphocytes % (Manual) Monocytes % (Manual) Eosinophils % (Manual) Basophils % (Manual) Platelet Estimate Hypochromasia (manual) Anisocytosis (manual) PT INR APTT pCO2 pO2 HCO3 ABG pH ABG Total CO2 ABG O2 Saturation ABG Base Excess Ari Test ABG Potassium VBG pH VBG pCO2 VBG HCO3 VBG Total CO2 VBG O2 Sat (Calc) VBG Base Excess VBG Potassium A-a O2 Difference Sodium Chloride Glucose Lactate Liter Flow FiO2 Potassium Carbon Dioxide Anion Gap BUN Creatinine Est GFR ( Amer) Est GFR (Non-Af Amer) POC Glucose (mg/dL) 226 H 143 H Random Glucose Calcium Phosphorus Magnesium Total Bilirubin AST ALT Alkaline Phosphatase Ammonia Total Protein Albumin Globulin Albumin/Globulin Ratio Lipase TSH 3rd Generation Arterial Blood Potassium Venous Blood Potassium Influenza Typ A,B (EIA) Negative for flu a/b Blood Type Antibody Screen BBK History Checked 06/22/17 06/22/17 06/22/17 11:16 12:08 12:13 WBC RBC Hgb Hct MCV MCH MCHC RDW Plt Count MPV Neut % (Auto) Lymph % (Auto) [place] % (Auto) Eos % (Auto) Baso % (Auto) Neut # (Auto) Lymph # (Auto) [place] # (Auto) Eos # (Auto) Baso # (Auto) Neutrophils % (Manual) Lymphocytes % (Manual) Monocytes % (Manual) Eosinophils % (Manual) Basophils % (Manual) Platelet Estimate Hypochromasia (manual) Anisocytosis (manual) PT INR APTT pCO2 46 H pO2 69 L HCO3 26.2 ABG pH 7.38 ABG Total CO2 28.6 H ABG O2 Saturation 97.4 ABG Base Excess 1.7 Ari Test Yes ABG Potassium 4.9 VBG pH VBG pCO2 VBG HCO3 VBG Total CO2 VBG O2 Sat (Calc) VBG Base Excess VBG Potassium A-a O2 Difference 73.0 Sodium 135.0 Chloride 101.0 Glucose 172 H Lactate 1.1 Liter Flow 2 FiO2 28.0 Potassium Carbon Dioxide Anion Gap BUN Creatinine Est GFR ( Amer) Est GFR (Non-Af Amer) POC Glucose (mg/dL) 158 H 182 H Random Glucose Calcium Phosphorus Magnesium Total Bilirubin AST ALT Alkaline Phosphatase Ammonia Total Protein Albumin Globulin Albumin/Globulin Ratio Lipase TSH 3rd Generation Arterial Blood Potassium 4.9 Venous Blood Potassium Influenza Typ A,B (EIA) Blood Type Antibody Screen BBK History Checked 06/22/17 06/22/17 06/22/17 12:45 12:45 16:33 WBC 6.7 RBC 3.25 L Hgb 10.1 L Hct 30.8 L MCV 94.6 H MCH 31.1 H MCHC 32.9 L RDW 16.7 H Plt Count 74 L MPV 9.1 Neut % (Auto) 78.6 H Lymph % (Auto) 10.5 L [place] % (Auto) 9.9 Eos % (Auto) 0.3 Baso % (Auto) 0.7 Neut # (Auto) 5.3 Lymph # (Auto) 0.7 L [place] # (Auto) 0.7 Eos # (Auto) 0.0 Baso # (Auto) 0.0 Neutrophils % (Manual) Lymphocytes % (Manual) Monocytes % (Manual) Eosinophils % (Manual) Basophils % (Manual) Platelet Estimate Hypochromasia (manual) Anisocytosis (manual) PT INR APTT pCO2 pO2 HCO3 ABG pH ABG Total CO2 ABG O2 Saturation ABG Base Excess Ari Test ABG Potassium VBG pH VBG pCO2 VBG HCO3 VBG Total CO2 VBG O2 Sat (Calc) VBG Base Excess VBG Potassium A-a O2 Difference Sodium 139 Chloride 98 Glucose Lactate Liter Flow FiO2 Potassium 4.8 Carbon Dioxide 25 Anion Gap 21 H BUN 63 H Creatinine 5.8 H Est GFR ( Amer) 12 Est GFR (Non-Af Amer) 10 POC Glucose (mg/dL) 108 Random Glucose 154 H Calcium 8.9 Phosphorus Magnesium Total Bilirubin AST ALT Alkaline Phosphatase Ammonia Total Protein Albumin Globulin Albumin/Globulin Ratio Lipase TSH 3rd Generation Arterial Blood Potassium Venous Blood Potassium Influenza Typ A,B (EIA) Blood Type Antibody Screen BBK History Checked 06/22/17 06/23/17 06/23/17 21:09 05:42 08:34 WBC 7.4 RBC 3.13 L Hgb 9.8 L Hct 29.6 L MCV 94.6 H MCH 31.2 H MCHC 33.0 RDW 16.6 H Plt Count 83 L MPV 9.1 Neut % (Auto) 75.9 H Lymph % (Auto) 11.2 L [place] % (Auto) 11.5 H Eos % (Auto) 0.8 Baso % (Auto) 0.6 Neut # (Auto) 5.6 Lymph # (Auto) 0.8 L [place] # (Auto) 0.9 H Eos # (Auto) 0.1 Baso # (Auto) 0.0 Neutrophils % (Manual) Lymphocytes % (Manual) Monocytes % (Manual) Eosinophils % (Manual) Basophils % (Manual) Platelet Estimate Hypochromasia (manual) Anisocytosis (manual) PT INR APTT pCO2 pO2 HCO3 ABG pH ABG Total CO2 ABG O2 Saturation ABG Base Excess Ari Test ABG Potassium VBG pH VBG pCO2 VBG HCO3 VBG Total CO2 VBG O2 Sat (Calc) VBG Base Excess VBG Potassium A-a O2 Difference Sodium Chloride Glucose Lactate Liter Flow FiO2 Potassium Carbon Dioxide Anion Gap BUN Creatinine Est GFR ( Amer) Est GFR (Non-Af Amer) POC Glucose (mg/dL) 98 84 Random Glucose Calcium Phosphorus Magnesium Total Bilirubin AST ALT Alkaline Phosphatase Ammonia Total Protein Albumin Globulin Albumin/Globulin Ratio Lipase TSH 3rd Generation Arterial Blood Potassium Venous Blood Potassium Influenza Typ A,B (EIA) Blood Type Antibody Screen BBK History Checked 06/23/17 06/23/17 08:34 11:53 WBC RBC Hgb Hct MCV MCH MCHC RDW Plt Count MPV Neut % (Auto) Lymph % (Auto) [place] % (Auto) Eos % (Auto) Baso % (Auto) Neut # (Auto) Lymph # (Auto) [place] # (Auto) Eos # (Auto) Baso # (Auto) Neutrophils % (Manual) Lymphocytes % (Manual) Monocytes % (Manual) Eosinophils % (Manual) Basophils % (Manual) Platelet Estimate Hypochromasia (manual) Anisocytosis (manual) PT INR APTT pCO2 pO2 HCO3 ABG pH ABG Total CO2 ABG O2 Saturation ABG Base Excess Ari Test ABG Potassium VBG pH VBG pCO2 VBG HCO3 VBG Total CO2 VBG O2 Sat (Calc) VBG Base Excess VBG Potassium A-a O2 Difference Sodium 138 Chloride 96 L Glucose Lactate Liter Flow FiO2 Potassium 4.2 Carbon Dioxide 26 Anion Gap 20 BUN 45 H Creatinine 4.3 H Est GFR ( Amer) 17 Est GFR (Non-Af Amer) 14 POC Glucose (mg/dL) 142 H Random Glucose 84 Calcium 9.2 Phosphorus Magnesium Total Bilirubin 1.1 AST 30 ALT 27 Alkaline Phosphatase 236 H D Ammonia Total Protein 7.5 Albumin 3.7 Globulin 3.7 Albumin/Globulin Ratio 1.0 Lipase TSH 3rd Generation Arterial Blood Potassium Venous Blood Potassium Influenza Typ A,B (EIA) Blood Type Antibody Screen BBK History Checked Microbiology 06/21/17 10:30 Blood-Venous S.aureus & Coag-Neg Staph PNA FISH - Final 06/21/17 10:30 Blood-Venous Blood Culture - Preliminary Gram Positive Cocci 06/21/17 10:30 Blood-Venous Gram Stain - Final 06/21/17 11:06 Blood-Venous Blood Culture - Preliminary Gram Positive Cocci 06/21/17 11:06 Blood-Venous Gram Stain - Final Assessment and Plan (1) End stage renal disease Status: Acute (2) Fever Status: Acute (3) Gram-positive bacteremia Status: Acute (4) CKD (chronic kidney disease) requiring chronic dialysis Status: Acute (5) Diabetic neuropathy Status: Acute (6) History of osteomyelitis Status: Acute (7) Personal history of osteomyelitis Status: Acute - Assessment and Plan (Free Text) Assessment: A/P- 61 year old male with ESRD On HD, DM II, 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 right thumb edematous and erythematous most likely from nail biting again and could be the source of the staph aureus bacteremia. afebrile normal wbc count blood cx- staph aureus x 2 , await sensitivity panel await TTE report. plan- await TTE r/o vegetations. await sensitivity of the staph aureus bacteremia. give vanco post HD 1 gram. s/p 2 doses so far check 2 more blood cx . check one blood cx from the HD site. advise to have plastic surgery evaluate the right thumb and sees if I and D is indicated and send fluid for cx. r/o OM of the digit as well. check ESR. all labs , imaging and hospital notes reviewed. all above d/w patient and his and they verbalizes full understanding of all above. all above also d/w Margarine Maker. ICU time 45 minutes.
--- NOTE | 2017-06-23 17:42 | CP.PCM.PN ---
Subjective - Date & Time of Evaluation Date of Evaluation: 06/23/17 Time of Evaluation: 15:00 - Subjective Subjective: renal follow up note vs noted gen: nad sclera: anicteric op clear neck: supple, no thyromegaly lungs cta b/l abd soft, no r/g, + bs ext: trace edema neuro: a+ox3 follows command psych: nml affect skin: bit browne on tips of fingers labs and imaging review imp: ESRD / Fevers/ Anemia of Renal Disease/ Hypertensive Kidney disease/ Secondary hyperparathyroid/ Hyperphosphatemia Plan hd mwf schedule here, no hd today lytes reviewed f/u cultures - source of infection not clear yet at this point BP well controlled on medications Epo w/ HD On calcitriol monitor phos levels Objective - Vital Signs/Intake and Output Vital Signs (last 24 hours): Temp Pulse Resp BP Pulse Ox 100.2 F H 77 26 H 140/74 93 L 06/23/17 16:00 06/23/17 16:00 06/23/17 16:00 06/23/17 16:00 06/23/17 16:00 - Medications Medications: Current Medications Acetaminophen (Tylenol 325mg Tab) 650 mg PO Q4 [facility] Last Admin: 06/22/17 10:16 Dose: 650 mg Acetaminophen (Tylenol 325mg Tab) 650 mg PO Q4 PRN PRN Reason: Pain, Mild (1-3) Last Admin: 06/23/17 04:01 Dose: 650 mg Alprazolam (Xanax) 0.5 mg PO HS [facility] Last Admin: 06/21/17 21:35 Dose: 0.5 mg Aspirin (Ecotrin) 81 mg PO DAILY [facility] Last Admin: 06/23/17 08:38 Dose: 81 mg Atorvastatin Calcium (Lipitor) 20 mg PO HS [facility] Last Admin: 06/22/17 21:34 Dose: 20 mg Calcitriol (Rocaltrol) 0.25 mcg PO DAILY [facility] Last Admin: 06/23/17 08:40 Dose: 0.25 mcg Cholecalciferol (Vitamin D) 1,000 intlu PO DAILY [facility] Last Admin: 06/23/17 08:40 Dose: 1,000 intlu Clonidine HCl (Catapres) 0.2 mg PO TID [facility] Last Admin: 06/22/17 10:17 Dose: 0.2 mg Clonidine HCl (Catapres) 0.1 mg PO BID [facility] Clopidogrel Bisulfate (Plavix) 75 mg PO DAILY [facility] Last Admin: 06/23/17 08:39 Dose: 75 mg Epoetin Alexy (Procrit) 8,000 unit IV TTS [facility] Last Admin: 06/23/17 10:30 Dose: 8,000 unit Famotidine (Pepcid) 20 mg PO BID [facility] Last Admin: 06/23/17 17:18 Dose: 20 mg Glipizide (Glucotrol) 10 mg PO BID [facility] Last Admin: 06/23/17 17:17 Dose: 10 mg Vancomycin HCl 1 gm/ Sodium (Chloride) 250 mls @ 125 mls/hr IVPB MWF [facility] PRN Reason: Protocol Vancomycin HCl 1 gm/ Sodium (Chloride) 250 mls @ 125 mls/hr IVPB POSTDI [facility] PRN Reason: Protocol Stop: 06/24/17 09:06 Last Admin: 06/23/17 10:29 Dose: 125 mls/hr Insulin Human Lispro (Humalog) 0 units SC ACHS [facility] PRN Reason: Protocol Last Admin: 06/23/17 17:17 Dose: 2 units Metoprolol Tartrate (Lopressor) 50 mg PO BID [facility] Last Admin: 06/22/17 16:41 Dose: Not Given Metoprolol Tartrate (Lopressor) 12.5 mg PO Q12 [facility] Ondansetron HCl (Zofran Inj) 4 mg IVP Q6 PRN PRN Reason: Nausea/Vomiting Ondansetron HCl (Zofran Odt) 4 mg PO Q8H PRN PRN Reason: Nausea/Vomiting Sertraline HCl (Zoloft) 50 mg PO HS [facility] Last Admin: 06/21/17 21:35 Dose: 50 mg Sevelamer HCl (Renagel) 3,200 mg PO TID [facility] Last Admin: 06/23/17 17:18 Dose: 3,200 mg - Labs Labs: 06/23/17 08:34 06/23/17 08:34 PT 12.3 Seconds (9.8-13.1) 06/21/17 11:02 INR 1.1 (0.9-1.2) 06/21/17 11:02 APTT 33.9 Seconds (25.6-37.1) 06/21/17 11:02
--- NOTE | 2017-06-23 23:16 | PN ---
DAILY PROGRESS NOTE DATE: 06/23/2017 SUBJECTIVE: The patient is seen today on 06/23/2017. He is more awake and alert. He is on vancomycin treating Gram-positive cocci bacteremia. PHYSICAL EXAMINATION: VITAL SIGNS: Blood pressure 121/70, temperature 98.4, respiratory rate 20, and pulse 78. HEENT: Pale mucosa of the conjunctivae. NECK: Supple. No JVD. No carotid bruit. No lymph node. No thyromegaly. CHEST AND LUNGS: Bilateral symmetrical expansion. Good air exchange. No rales. No rhonchi. CARDIOVASCULAR: PMI not localized. S1 and S2 irregularly irregular. ABDOMEN: Normoactive bowel sounds. No tenderness. No organomegaly. No masses. EXTREMITIES: No cyanosis. No clubbing. There is chronic venous changes of both lower extremities. CENTRAL NERVOUS SYSTEM: Alert, awake, and oriented x2. No neurological deficit could be appreciated except for bilateral lower extremity weakness right more than left. ASSESSMENT: 1. Metabolic encephalopathy bacteremia. 2. End-stage renal disease, on hemodialysis. 3. Hypertension. 4. Chronic atrial fibrillation. 5. Infected right thumb, which is most likely the cause of bacteremia. PLAN: Continue current IV antibiotics. Follow ID recommendations. Renal consult with hemodialysis as per schedule. Discussed with legal instruments examiner. We did also Neurology consult. Alverto Brower MD
[2017-06-24 05:30] LABS: MEAN CELL VOLUME 95.2 fl (80.0-94.0); MEAN CORPUSCULAR HGB CONC 32.5 g/dL (33.0-37.0); RBC 3.22 Mil/uL (4.40-5.90); RED CELL DISTRIBUTION WIDTH 16.8 % (11.5-14.5); WHITE BLOOD COUNT 8.4 K/uL (4.8-10.8)
[2017-06-24 05:51] LABS: ALBUMIN 4.1 g/dL (3.5-5.0); CALCIUM 9.1 mg/dL (8.4-10.2)
--- NOTE | 2017-06-24 08:41 | PQF GENQUE ---
Dr. Brower, Multiple queries as follows: Pin Cleaner documented the following information with no mention of this diagnosis in your documentation. Please indicate in your next progress note and /or discharge summary your agreement with protection consultant or provide clarification that this diagnosis is not a current condition. Diagnosis: Possible Sepsis Encephalopathy Documented by: Chess Instructor Location :Critical Care note of 06/23/17 1. If in agreement: with Sepsis: Please document suspected or confirmed causative organism:if known 2. Please document suspected or confirmed localized infection:if known or etiology unknown 3. Please clarify if sepsis is related to a device 4. Please clarify if sepsis was present on admission OR: Sepsis ruled out OR: Unable to determine ABG lactate: 1.0->1.1 WBC:6.2->6.7->7.4 left shift 06/21 ER note: Tmax 102 , while at eye center while awaiting for rt. eye surgery today: 06/21@09:43 Temperature:99.7->99.4----on 06/22@08:23676.9->100.9->100.6-> 100.6 06/21:Pulse:81->82->71 ----06/22@08:41: 95->95 06/21 blood culture x 2: prelim: gram pos. cocci 06/22 blood culture x 2: prelim:no growth after 24 hrs. 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 --source of bacteremia unclear at this time. certainly the right hand distal nail bed bite can be a nidus . left arm HD shunt site should be ruled out for infection as well. 1.ESRD On HD 2.Hypotention 3.fever 4.GPC bacteremia plan- : check TTE r/o vegetations. await ID and sensitivity of the GPC in blood cx. give vanco post HD 1 gram. check 2 more blood cx . check one blood cx from the HD site. advise vascular evaluation of his lower extermities. This form is a permanent part of the medical record Clarification of your documentation is requested to better reflect the severity of illness and intensity of treatment of your patient. Indicators present [] Specify: [] [] Specify: [] [] Specify: [] [] Specify: [] Location in the medical record that reflects the above clinical findings: [] Treatment Provided: [] PHYSICIAN'S RESPONSE Based on your medical judgment of the clinical indicators outlined above please clarify the following: [] Practitioner response [] If unable to determine, please check the box, sign and date. Present On Admission (POA) Indicator: [] Present at the time of admission [] Not present at the time of admission [] Clinically Undetermined In responding to this query, please exercise your independent professional judgment. The fact that a question is asked does not imply that any particular answer is desired or expected. Thank you for your clarification on this documentation. If you have any questions please call. * Thank you, Madison Bernabe RN ext. #[phone] [id number]
[2017-06-24] MEDS: Cholecalciferol 1,000 INTLU TAB PO SCH (08:51)
--- NOTE | 2017-06-24 10:12 | CP.PCM.PN ---
Subjective - Date & Time of Evaluation Date of Evaluation: 06/24/17 Time of Evaluation: 10:10 - Subjective Subjective: Mr. Lubin was seen and examined at the bedside in ICU. He remaisn alert, oriented in all spheres. He denies any headache, diplopia, lightheadedness, weaknsee, nausea, or vomiting. He is able to follow all simple commands. He has no focal neurological deficits. Repeat CT scan of the head showed no acute intracranial findings or hemorrhage. There was no untoward events overnight. Objective - Vital Signs/Intake and Output Vital Signs (last 24 hours): Temp Pulse Resp BP Pulse Ox 99.0 F 86 16 128/73 95 06/24/17 08:00 06/24/17 08:00 06/24/17 08:00 06/24/17 08:00 06/24/17 08:00 - Medications Medications: Current Medications Acetaminophen (Tylenol 325mg Tab) 650 mg PO Q4 [facility] Last Admin: 06/22/17 10:16 Dose: 650 mg Acetaminophen (Tylenol 325mg Tab) 650 mg PO Q4 PRN PRN Reason: Pain, Mild (1-3) Last Admin: 06/23/17 21:43 Dose: 650 mg Aspirin (Ecotrin) 81 mg PO DAILY [facility] Last Admin: 06/24/17 08:50 Dose: 81 mg Atorvastatin Calcium (Lipitor) 20 mg PO HS [facility] Last Admin: 06/23/17 21:43 Dose: 20 mg Calcitriol (Rocaltrol) 0.25 mcg PO DAILY [facility] Last Admin: 06/24/17 08:51 Dose: 0.25 mcg Cholecalciferol (Vitamin D) 1,000 intlu PO DAILY [facility] Last Admin: 06/24/17 08:51 Dose: 1,000 intlu Clonidine HCl (Catapres) 0.2 mg PO TID [facility] Last Admin: 06/22/17 10:17 Dose: 0.2 mg Clonidine HCl (Catapres) 0.1 mg PO BID [facility] Clopidogrel Bisulfate (Plavix) 75 mg PO DAILY [facility] Last Admin: 06/24/17 08:51 Dose: 75 mg Epoetin Alexy (Procrit) 8,000 unit IV TTS [facility] Last Admin: 06/23/17 10:30 Dose: 8,000 unit Famotidine (Pepcid) 20 mg PO BID [facility] Last Admin: 06/24/17 08:50 Dose: 20 mg Glipizide (Glucotrol) 10 mg PO BID [facility] Last Admin: 06/24/17 08:50 Dose: 10 mg Vancomycin HCl 1 gm/ Sodium (Chloride) 250 mls @ 125 mls/hr IVPB MWF [facility] PRN Reason: Protocol Insulin Human Lispro (Humalog) 0 units SC ACHS [facility] PRN Reason: Protocol Last Admin: 06/23/17 21:44 Dose: Not Given Metoprolol Tartrate (Lopressor) 50 mg PO BID [facility] Last Admin: 06/22/17 16:41 Dose: Not Given Metoprolol Tartrate (Lopressor) 12.5 mg PO Q12 [facility] Last Admin: 06/23/17 21:57 Dose: Not Given Ondansetron HCl (Zofran Inj) 4 mg IVP Q6 PRN PRN Reason: Nausea/Vomiting Ondansetron HCl (Zofran Odt) 4 mg PO Q8H PRN PRN Reason: Nausea/Vomiting Sertraline HCl (Zoloft) 50 mg PO HS [facility] Last Admin: 06/21/17 21:35 Dose: 50 mg Sevelamer HCl (Renagel) 3,200 mg PO TID [facility] Last Admin: 06/24/17 08:51 Dose: 3,200 mg - Labs Labs: 06/24/17 04:25 06/24/17 04:25 PT 12.3 Seconds (9.8-13.1) 06/21/17 11:02 INR 1.1 (0.9-1.2) 06/21/17 11:02 APTT 33.9 Seconds (25.6-37.1) 06/21/17 11:02 - Constitutional Appears: No Acute Distress - Head Exam Head Exam: NORMAL INSPECTION - Eye Exam Pupil Exam: PERRL - ENT Exam ENT Exam: Normal Oropharynx - Neck Exam Neck Exam: Full ROM - Cardiovascular Exam Cardiovascular Exam: +S1, +S2 - Neurological Exam Neurological Exam: Alert, Awake, Oriented x3 Neuro motor strength exam: Left Upper Extremity: 5, Right Upper Extremity: 5, Left Lower Extremity: 5, Right Lower Extremity: 5 Additional comments: Neurological unchanged from previous examination. Assessment and Plan (1) Encephalopathy acute Assessment & Plan: Case discussed with Dr. Hale, continue all current medical, physical, and occupational therapies. Recommend to treat any underlying infection or electrolyte abnormalities. The patient is back to his baseline, neurology is signing off from this case. Please re-consult if needed. Status: Acute
--- NOTE | 2017-06-24 11:18 | CARD ---
APPROVED REPORT EXAM: Two-dimensional and M-mode echocardiogram with Doppler and color Doppler. Other Information Quality : GoodRhythm : NSR INDICATION Infection: 2D DIMENSIONS IVSd1.81 (0.7-1.1cm)LVDd4.60 (3.9-5.9cm) LVOT Diameter2.12 (1.8-2.4cm)PWd1.68 (0.7-1.1cm) IVSs1.99 (0.8-1.2cm)LVDs3.99 (2.5-4.0cm) FS (%) 13.3 %PWs2.08 (0.8-1.2cm) M-Mode DIMENSIONS Left Atrium (MM)5.19 (2.5-4.0cm)IVSd1.65 (0.7-1.1cm) Aortic Root3.47 (2.2-3.7cm)LVDd4.67 (4.0-5.6cm) Aortic Cusp Exc.1.95 (1.5-2.0cm)PWd1.46 (0.7-1.1cm) IVSs1.95 cmFS (%) 18 % LVDs3.84 (2.0-3.8cm)PWs1.85 cm Mitral Valve MV E Txcflvgv000.8cm/sMV DECEL [id number] A Dbfaqdsg94.0cm/s MV ZUQ93fsR/A ratio4.4MVA (PHT)3.52cm2 TDI Lateral E' Peak V10.84cm/sMedial E' Peak V11.73cm/sE/Lateral E'11.1 E/Medial E'10.2 Tricuspid Valve TR Peak Olizrkoo272ns/sRAP [id number] Peak Gr.34mmHg [id number] LEFT VENTRICLE The left ventricle is normal size. There is mild concentric left ventricular hypertrophy. The systolic function is moderately to severely impaired. The Ejection Fraction is 25-30%. There is global hypokinesis of the left ventricle. The left ventricular diastolic function is normal. RIGHT VENTRICLE The right ventricle is normal size. The right ventricular systolic function is normal. ATRIA The left atrium is moderately dilated. The right atrium size is normal. AORTIC VALVE The aortic valve is normal in structure. No aortic regurgitation is present. There is no aortic valvular stenosis. MITRAL VALVE Mitral annular calcification is mild to moderate. There is no mitral valve stenosis. Mitral regurgitation is trace to mild. TRICUSPID VALVE The tricuspid valve is normal in structure. There is moderate tricuspid regurgitation. Right ventricular systolic pressure is estimated at 44 mmHg. There is mild pulmonary hypertension. There is no tricuspid valve stenosis. PULMONIC VALVE The pulmonary valve is normal in structure. There is no pulmonic valvular regurgitation. GREAT VESSELS The aortic root is normal in size. The IVC is normal in size and collapses >50% with inspiration. PERICARDIAL EFFUSION The pericardium appears normal. <Conclusion> The left ventricle is normal size. There is mild concentric left ventricular hypertrophy. The systolic function is moderately to severely impaired. The Ejection Fraction is 25-30%. There is global hypokinesis of the left ventricle. The left atrium is moderately dilated. Mitral annular calcification is mild to moderate. Mitral regurgitation is trace to mild. There is moderate tricuspid regurgitation. Right ventricular systolic pressure is estimated at 44 mmHg. There is mild pulmonary hypertension.
--- NOTE | 2017-06-24 11:44 | CP.PCM.PN ---
Subjective - Date & Time of Evaluation Date of Evaluation: 06/24/17 Time of Evaluation: 10:00 - Subjective Subjective: Patient seen and examined at bedside. Patient awake, alert in NAD, denies fevers , denies chest pain, denies abdominal pain. PAtient requested to be transferred to a unit with private bathroom Objective - Vital Signs/Intake and Output Vital Signs (last 24 hours): Temp Pulse Resp BP Pulse Ox 99.0 F 86 16 128/73 95 06/24/17 08:00 06/24/17 08:00 06/24/17 08:00 06/24/17 08:00 06/24/17 08:00 - Medications Medications: Current Medications Acetaminophen (Tylenol 325mg Tab) 650 mg PO Q4 [facility] Last Admin: 06/22/17 10:16 Dose: 650 mg Acetaminophen (Tylenol 325mg Tab) 650 mg PO Q4 PRN PRN Reason: Pain, Mild (1-3) Last Admin: 06/23/17 21:43 Dose: 650 mg Aspirin (Ecotrin) 81 mg PO DAILY [facility] Last Admin: 06/24/17 08:50 Dose: 81 mg Atorvastatin Calcium (Lipitor) 20 mg PO HS [facility] Last Admin: 06/23/17 21:43 Dose: 20 mg Calcitriol (Rocaltrol) 0.25 mcg PO DAILY [facility] Last Admin: 06/24/17 08:51 Dose: 0.25 mcg Cholecalciferol (Vitamin D) 1,000 intlu PO DAILY [facility] Last Admin: 06/24/17 08:51 Dose: 1,000 intlu Clonidine HCl (Catapres) 0.2 mg PO TID [facility] Last Admin: 06/22/17 10:17 Dose: 0.2 mg Clonidine HCl (Catapres) 0.1 mg PO BID [facility] Clopidogrel Bisulfate (Plavix) 75 mg PO DAILY [facility] Last Admin: 06/24/17 08:51 Dose: 75 mg Epoetin Alexy (Procrit) 8,000 unit IV TTS [facility] Last Admin: 06/23/17 10:30 Dose: 8,000 unit Famotidine (Pepcid) 20 mg PO BID [facility] Last Admin: 06/24/17 08:50 Dose: 20 mg Glipizide (Glucotrol) 10 mg PO BID [facility] Last Admin: 06/24/17 08:50 Dose: 10 mg Vancomycin HCl 1 gm/ Sodium (Chloride) 250 mls @ 125 mls/hr IVPB MWF [facility] PRN Reason: Protocol Insulin Human Lispro (Humalog) 0 units SC ACHS [facility] PRN Reason: Protocol Last Admin: 06/23/17 21:44 Dose: Not Given Metoprolol Tartrate (Lopressor) 50 mg PO BID [facility] Last Admin: 06/22/17 16:41 Dose: Not Given Metoprolol Tartrate (Lopressor) 12.5 mg PO Q12 [facility] Last Admin: 06/23/17 21:57 Dose: Not Given Ondansetron HCl (Zofran Inj) 4 mg IVP Q6 PRN PRN Reason: Nausea/Vomiting Ondansetron HCl (Zofran Odt) 4 mg PO Q8H PRN PRN Reason: Nausea/Vomiting Sertraline HCl (Zoloft) 50 mg PO HS [facility] Last Admin: 06/21/17 21:35 Dose: 50 mg Sevelamer HCl (Renagel) 3,200 mg PO TID [facility] Last Admin: 06/24/17 08:51 Dose: 3,200 mg Vitamin B Complex/Vit C/Folic Acid (Nephro-Jeff) 1 tab PO DAILY [facility] - Labs Labs: 06/24/17 04:25 06/24/17 04:25 PT 12.3 Seconds (9.8-13.1) 06/21/17 11:02 INR 1.1 (0.9-1.2) 06/21/17 11:02 APTT 33.9 Seconds (25.6-37.1) 06/21/17 11:02 Assessment and Plan - Assessment and Plan (Free Text) Assessment: MRSA bacteremia: continue vanco per ID, follow up random vanco level -ESRD on HD: continue HD as per renal -DM: continue glipizide -at risk of CAD: continue asa, statin , lopressor -HTn: continue home medications, BP controlled -continue DVT/PUD ppx: heparin SQ/pepcid Avoid benzos and opoids. d/w ICu team, PMD aware and agree with transfer Patient remains hemodynamically stable
[2017-06-24] MEDS: Insulin Lispro (humaLOG) 100 Units/ml Inj SC SCH ×3 (13:24→21:07)
[2017-06-24] MEDS: Multivitamin Vitamin B Complex (Nephro-Vite) Tab PO SCH (13:26)
--- NOTE | 2017-06-24 14:03 | CP.PCM.PN ---
Subjective - Date & Time of Evaluation Date of Evaluation: 06/24/17 Time of Evaluation: 13:59 - Subjective Subjective: Nephrology Consultation Note Assessment: Stable MRSA sepsis ? source as hand Diabetic chronic Kidney Disease (E11.22) Hypertensive Chronic Kidney Disease (I12.0) End stage renal disease (N18.6) dependence on hemodialysis (Z99.2) (TTS) via AVF Anemia (D64.9), Hyperphosphatemia (E83.39), Secondary Hyperparathyroidism (E21.1 ), HTN (I12.0) Thrombocytopenia Plan: No acute need for dialysis today. Will plan for dialysis tomorrow as per TTS schedule. Continue with Nephrovite 1 tab/day. PRBC as needed for anemia. On ROSE as epogen last Hb 10 Continue with phos binders, last phos level 3.8 Continue with calcitriol. BP control with meds as ordered. Patient not on RAAS nury, may consider to add if needed for high BP Glycemic control, Dialysis consistent diet Further work up/management as per primary team Dose meds/antibiotics (if needed) for ESRD status. Avoid fleets enema/magnesium based laxatives. consider additional Dose of vancomycin today as patient plan for dialysis tomorrow. Dose vancomycin post HD, further based on the level Thanks for allowing me to participate in care of your patient. Will follow patient with you. Please call if any Qs. Discussed with the team Dr Nikita Wallace Office: [phone] Subjective: Noted events overnight. Patients feels okay. Denies chest pain, palpitation, shortness of breath, leg swelling. All other negative. c/o Rt thumb Redness pain and swelling. He reports chronic nail biting. Had lost multiple digits on the left hand due to this Physical Examination: General Appearance: Comfortable, in no acute respiratory distress, co-operative . Vitals reviewed and noted as below Head; Atraumatic, normocephalic ENT: no ulcers no thrush. Tongue is midline. Oropharynx: no rash or ulcers. EYES: Pupils are equal, round and reactive to light accommodation. Eye muscles and extraocular movement intact. Sclera is anicteric. Neck; supple no lymphadenopathy, no thyromegaly or bruit Lungs: Normal respiratory rate/effort. Breath sounds bilateral equal and clear Heart: Normal rate. s1s2 normal. No rub or gallop. Extremities: no edema. has varicose veins Neurological: Patient is alert, awake and oriented to person, place and time. No focal deficit. Strength bilateral appropriate and equal Skin: Warm and dry. Normal turgor. No rash. Palpitation: Normal elasticity for age Abdomen: Abdomen is soft. Bowel sounds +. There is no abdominal tenderness, no guarding/rigidity or organomegaly Psych: normal insight and normal affect/mood MSK: no joint tenderness or swelling. Redness and swelling on the right thumb area. Loss of multiple distal phalanx on the left hand : kidney or bladder not palpable Access: AVF Labs/imaging reviewed. Past medical history, past surgical history, family history, social history, allergy reviewed and noted as below Family Hx: no hx of CKD. Non contributory Objective - Vital Signs/Intake and Output Vital Signs (last 24 hours): Temp Pulse Resp BP Pulse Ox 98.6 F 85 14 146/93 H 99 06/24/17 12:00 06/24/17 13:25 06/24/17 13:08 06/24/17 13:25 06/24/17 13:08 - Medications Medications: Current Medications Acetaminophen (Tylenol 325mg Tab) 650 mg PO Q4 [facility] Last Admin: 06/22/17 10:16 Dose: 650 mg Acetaminophen (Tylenol 325mg Tab) 650 mg PO Q4 PRN PRN Reason: Pain, Mild (1-3) Last Admin: 06/23/17 21:43 Dose: 650 mg Aspirin (Ecotrin) 81 mg PO DAILY [facility] Last Admin: 06/24/17 08:50 Dose: 81 mg Atorvastatin Calcium (Lipitor) 20 mg PO HS [facility] Last Admin: 06/23/17 21:43 Dose: 20 mg Calcitriol (Rocaltrol) 0.25 mcg PO DAILY [facility] Last Admin: 06/24/17 08:51 Dose: 0.25 mcg Cholecalciferol (Vitamin D) 1,000 intlu PO DAILY [facility] Last Admin: 06/24/17 08:51 Dose: 1,000 intlu Clonidine HCl (Catapres) 0.2 mg PO TID [facility] Last Admin: 06/22/17 10:17 Dose: 0.2 mg Clonidine HCl (Catapres) 0.1 mg PO BID [facility] Clopidogrel Bisulfate (Plavix) 75 mg PO DAILY [facility] Last Admin: 06/24/17 08:51 Dose: 75 mg Epoetin Alexy (Procrit) 8,000 unit IV TTS [facility] Last Admin: 06/23/17 10:30 Dose: 8,000 unit Famotidine (Pepcid) 20 mg PO DAILY [facility] Glipizide (Glucotrol) 10 mg PO BID [facility] Last Admin: 06/24/17 08:50 Dose: 10 mg Heparin Sodium (Porcine) (Heparin) 5,000 units SC Q8 [facility] PRN Reason: Protocol Vancomycin HCl 750 mg/ Sodium (Chloride) 250 mls @ 166.667 mls/hr IVPB ONCE ONE PRN Reason: Protocol Stop: 06/24/17 15:14 Vancomycin HCl 1 gm/ Sodium (Chloride) 250 mls @ 125 mls/hr IVPB TTS [facility] PRN Reason: Protocol Insulin Human Lispro (Humalog) 0 units SC ACHS [facility] PRN Reason: Protocol Last Admin: 06/24/17 13:24 Dose: Not Given Metoprolol Tartrate (Lopressor) 50 mg PO BID [facility] Last Admin: 06/22/17 16:41 Dose: Not Given Metoprolol Tartrate (Lopressor) 12.5 mg PO Q12 [facility] Last Admin: 06/24/17 13:25 Dose: 12.5 mg Ondansetron HCl (Zofran Inj) 4 mg IVP Q6 PRN PRN Reason: Nausea/Vomiting Ondansetron HCl (Zofran Odt) 4 mg PO Q8H PRN PRN Reason: Nausea/Vomiting Sertraline HCl (Zoloft) 50 mg PO HS [facility] Last Admin: 06/21/17 21:35 Dose: 50 mg Sevelamer HCl (Renagel) 3,200 mg PO TID [facility] Last Admin: 06/24/17 13:26 Dose: 3,200 mg Vitamin B Complex/Vit C/Folic Acid (Nephro-Jeff) 1 tab PO DAILY [facility] Last Admin: 06/24/17 13:26 Dose: 1 tab - Labs Labs: 06/24/17 04:25 06/24/17 04:25 PT 12.3 Seconds (9.8-13.1) 06/21/17 11:02 INR 1.1 (0.9-1.2) 06/21/17 11:02 APTT 32.3 Seconds (25.6-37.1) 06/24/17 11:52
--- NOTE | 2017-06-24 14:35 | CP.PCM.PN ---
Subjective - Date & Time of Evaluation Date of Evaluation: 06/24/17 Time of Evaluation: 14:33 - Subjective Subjective: ID Note- Pt. seen and examined today in ICU. patient in good spirits and denies any fever or chills but still ahs right thumb swelling and redness. as per pt's nurse his HD days is back to , tue, tue and his last vanco dose was given tuesday and Rrt has suggested to giev one dose of vanco today 750 mg x 1 and resume the 1 gram post HD days starting tomm. last vanco trough-11 Objective - Vital Signs/Intake and Output Vital Signs (last 24 hours): Temp Pulse Resp BP Pulse Ox 98.6 F 85 14 146/93 H 99 06/24/17 12:00 06/24/17 13:25 06/24/17 13:08 06/24/17 13:25 06/24/17 13:08 - Medications Medications: Current Medications Acetaminophen (Tylenol 325mg Tab) 650 mg PO Q4 [facility] Last Admin: 06/22/17 10:16 Dose: 650 mg Acetaminophen (Tylenol 325mg Tab) 650 mg PO Q4 PRN PRN Reason: Pain, Mild (1-3) Last Admin: 06/23/17 21:43 Dose: 650 mg Aspirin (Ecotrin) 81 mg PO DAILY [facility] Last Admin: 06/24/17 08:50 Dose: 81 mg Atorvastatin Calcium (Lipitor) 20 mg PO HS [facility] Last Admin: 06/23/17 21:43 Dose: 20 mg Calcitriol (Rocaltrol) 0.25 mcg PO DAILY [facility] Last Admin: 06/24/17 08:51 Dose: 0.25 mcg Cholecalciferol (Vitamin D) 1,000 intlu PO DAILY [facility] Last Admin: 06/24/17 08:51 Dose: 1,000 intlu Clonidine HCl (Catapres) 0.2 mg PO TID [facility] Last Admin: 06/22/17 10:17 Dose: 0.2 mg Clonidine HCl (Catapres) 0.1 mg PO BID [facility] Clopidogrel Bisulfate (Plavix) 75 mg PO DAILY [facility] Last Admin: 06/24/17 08:51 Dose: 75 mg Epoetin Alexy (Procrit) 8,000 unit IV TTS [facility] Last Admin: 06/23/17 10:30 Dose: 8,000 unit Famotidine (Pepcid) 20 mg PO DAILY [facility] Glipizide (Glucotrol) 10 mg PO BID [facility] Last Admin: 06/24/17 08:50 Dose: 10 mg Heparin Sodium (Porcine) (Heparin) 5,000 units SC Q8 [facility] PRN Reason: Protocol Vancomycin HCl 750 mg/ Sodium (Chloride) 250 mls @ 166.667 mls/hr IVPB ONCE ONE PRN Reason: Protocol Stop: 06/24/17 15:14 Vancomycin HCl 1 gm/ Sodium (Chloride) 250 mls @ 125 mls/hr IVPB TTS [facility] PRN Reason: Protocol Insulin Human Lispro (Humalog) 0 units SC ACHS [facility] PRN Reason: Protocol Last Admin: 06/24/17 13:24 Dose: Not Given Metoprolol Tartrate (Lopressor) 50 mg PO BID [facility] Last Admin: 06/22/17 16:41 Dose: Not Given Metoprolol Tartrate (Lopressor) 12.5 mg PO Q12 [facility] Last Admin: 06/24/17 13:25 Dose: 12.5 mg Ondansetron HCl (Zofran Inj) 4 mg IVP Q6 PRN PRN Reason: Nausea/Vomiting Ondansetron HCl (Zofran Odt) 4 mg PO Q8H PRN PRN Reason: Nausea/Vomiting Sertraline HCl (Zoloft) 50 mg PO HS [facility] Last Admin: 06/21/17 21:35 Dose: 50 mg Sevelamer HCl (Renagel) 3,200 mg PO TID [facility] Last Admin: 06/24/17 13:26 Dose: 3,200 mg Vitamin B Complex/Vit C/Folic Acid (Nephro-Jeff) 1 tab PO DAILY [facility] Last Admin: 06/24/17 13:26 Dose: 1 tab - Labs Labs: - Additional Findings Additional findings: - Constitutional Appears: No Acute Distress, Chronically Ill - Head Exam Head Exam: ATRAUMATIC - Eye Exam Eye Exam: EOMI - ENT Exam ENT Exam: Normal Oropharynx - Neck Exam Neck exam: Positive for: Full Rom - Respiratory Exam Respiratory Exam: Clear to Auscultation Bilateral, NORMAL BREATHING PATTERN - Cardiovascular Exam Cardiovascular Exam: RRR, +S1, +S2 - GI/Abdominal Exam GI & Abdominal Exam: Normal Bowel Sounds, Soft Additional comments: NT, ND - Extremities Exam Additional comments: B/L LE dark discoloration skin changes ( venous stasis) but warm to touch today left hand with multiple distal digit amputations right distal thumb to mid thumb region with edema, erythematous and somewhat tender to touch , no discharge, no open wounds per se but has bitten off nail bed - Neurological Exam Neurological exam: Alert, Oriented x 3 Laboratory Results - last 72 hr 06/21/17 06/21/17 06/22/17 15:35 22:20 05:15 WBC RBC Hgb Hct MCV MCH MCHC RDW Plt Count MPV Neut % (Auto) Lymph % (Auto) [place] % (Auto) Eos % (Auto) Baso % (Auto) Neut # (Auto) Lymph # (Auto) [place] # (Auto) Eos # (Auto) Baso # (Auto) APTT pCO2 pO2 HCO3 ABG pH ABG Total CO2 ABG O2 Saturation ABG Base Excess Ari Test ABG Potassium A-a O2 Difference Sodium Chloride Glucose Lactate Liter Flow FiO2 Potassium Carbon Dioxide Anion Gap BUN Creatinine Est GFR ( Amer) Est GFR (Non-Af Amer) POC Glucose (mg/dL) 226 H 143 H Random Glucose Calcium Total Bilirubin GGT AST ALT Alkaline Phosphatase Total Protein Albumin Globulin Albumin/Globulin Ratio Arterial Blood Potassium Random Vancomycin Influenza Typ A,B (EIA) Negative for flu a/b 06/22/17 06/22/17 06/22/17 11:16 12:08 12:13 WBC RBC Hgb Hct MCV MCH MCHC RDW Plt Count MPV Neut % (Auto) Lymph % (Auto) [place] % (Auto) Eos % (Auto) Baso % (Auto) Neut # (Auto) Lymph # (Auto) [place] # (Auto) Eos # (Auto) Baso # (Auto) APTT pCO2 46 H pO2 69 L HCO3 26.2 ABG pH 7.38 ABG Total CO2 28.6 H ABG O2 Saturation 97.4 ABG Base Excess 1.7 Ari Test Yes ABG Potassium 4.9 A-a O2 Difference 73.0 Sodium 135.0 Chloride 101.0 Glucose 172 H Lactate 1.1 Liter Flow 2 FiO2 28.0 Potassium Carbon Dioxide Anion Gap BUN Creatinine Est GFR ( Amer) Est GFR (Non-Af Amer) POC Glucose (mg/dL) 158 H 182 H Random Glucose Calcium Total Bilirubin GGT AST ALT Alkaline Phosphatase Total Protein Albumin Globulin Albumin/Globulin Ratio Arterial Blood Potassium 4.9 Random Vancomycin Influenza Typ A,B (EIA) 06/22/17 06/22/17 06/22/17 12:45 12:45 16:33 WBC 6.7 RBC 3.25 L Hgb 10.1 L Hct 30.8 L MCV 94.6 H MCH 31.1 H MCHC 32.9 L RDW 16.7 H Plt Count 74 L MPV 9.1 Neut % (Auto) 78.6 H Lymph % (Auto) 10.5 L [place] % (Auto) 9.9 Eos % (Auto) 0.3 Baso % (Auto) 0.7 Neut # (Auto) 5.3 Lymph # (Auto) 0.7 L [place] # (Auto) 0.7 Eos # (Auto) 0.0 Baso # (Auto) 0.0 APTT pCO2 pO2 HCO3 ABG pH ABG Total CO2 ABG O2 Saturation ABG Base Excess Ari Test ABG Potassium A-a O2 Difference Sodium 139 Chloride 98 Glucose Lactate Liter Flow FiO2 Potassium 4.8 Carbon Dioxide 25 Anion Gap 21 H BUN 63 H Creatinine 5.8 H Est GFR ( Amer) 12 Est GFR (Non-Af Amer) 10 POC Glucose (mg/dL) 108 Random Glucose 154 H Calcium 8.9 Total Bilirubin GGT AST ALT Alkaline Phosphatase Total Protein Albumin Globulin Albumin/Globulin Ratio Arterial Blood Potassium Random Vancomycin Influenza Typ A,B (EIA) 06/22/17 06/23/17 06/23/17 21:09 05:42 08:34 WBC 7.4 RBC 3.13 L Hgb 9.8 L Hct 29.6 L MCV 94.6 H MCH 31.2 H MCHC 33.0 RDW 16.6 H Plt Count 83 L MPV 9.1 Neut % (Auto) 75.9 H Lymph % (Auto) 11.2 L [place] % (Auto) 11.5 H Eos % (Auto) 0.8 Baso % (Auto) 0.6 Neut # (Auto) 5.6 Lymph # (Auto) 0.8 L [place] # (Auto) 0.9 H Eos # (Auto) 0.1 Baso # (Auto) 0.0 APTT pCO2 pO2 HCO3 ABG pH ABG Total CO2 ABG O2 Saturation ABG Base Excess Ari Test ABG Potassium A-a O2 Difference Sodium Chloride Glucose Lactate Liter Flow FiO2 Potassium Carbon Dioxide Anion Gap BUN Creatinine Est GFR ( Amer) Est GFR (Non-Af Amer) POC Glucose (mg/dL) 98 84 Random Glucose Calcium Total Bilirubin GGT AST ALT Alkaline Phosphatase Total Protein Albumin Globulin Albumin/Globulin Ratio Arterial Blood Potassium Random Vancomycin Influenza Typ A,B (EIA) 06/23/17 06/23/17 06/23/17 08:34 11:53 16:52 WBC RBC Hgb Hct MCV MCH MCHC RDW Plt Count MPV Neut % (Auto) Lymph % (Auto) [place] % (Auto) Eos % (Auto) Baso % (Auto) Neut # (Auto) Lymph # (Auto) [place] # (Auto) Eos # (Auto) Baso # (Auto) APTT pCO2 pO2 HCO3 ABG pH ABG Total CO2 ABG O2 Saturation ABG Base Excess Ari Test ABG Potassium A-a O2 Difference Sodium 138 Chloride 96 L Glucose Lactate Liter Flow FiO2 Potassium 4.2 Carbon Dioxide 26 Anion Gap 20 BUN 45 H Creatinine 4.3 H Est GFR ( Amer) 17 Est GFR (Non-Af Amer) 14 POC Glucose (mg/dL) 142 H 238 H Random Glucose 84 Calcium 9.2 Total Bilirubin 1.1 GGT 283 H AST 30 ALT 27 Alkaline Phosphatase 236 H D Total Protein 7.5 Albumin 3.7 Globulin 3.7 Albumin/Globulin Ratio 1.0 Arterial Blood Potassium Random Vancomycin Influenza Typ A,B (EIA) 06/23/17 06/24/17 06/24/17 21:18 04:25 04:25 WBC 8.4 RBC 3.22 L Hgb 10.0 L Hct 30.7 L MCV 95.2 H MCH 31.0 MCHC 32.5 L RDW 16.8 H Plt Count 93 L MPV Neut % (Auto) Lymph % (Auto) [place] % (Auto) Eos % (Auto) Baso % (Auto) Neut # (Auto) Lymph # (Auto) [place] # (Auto) Eos # (Auto) Baso # (Auto) APTT pCO2 pO2 HCO3 ABG pH ABG Total CO2 ABG O2 Saturation ABG Base Excess Ari Test ABG Potassium A-a O2 Difference Sodium 136 Chloride 94 L Glucose Lactate Liter Flow FiO2 Potassium 4.9 Carbon Dioxide 22 Anion Gap 25 H BUN 63 H Creatinine 5.5 H Est GFR ( Amer) 13 Est GFR (Non-Af Amer) 11 POC Glucose (mg/dL) 203 H Random Glucose 172 H Calcium 9.1 Total Bilirubin 1.2 GGT AST 17 D ALT 34 Alkaline Phosphatase 285 H D Total Protein 8.2 Albumin 4.1 Globulin 4.1 H Albumin/Globulin Ratio 1.0 Arterial Blood Potassium Random Vancomycin Influenza Typ A,B (EIA) 06/24/17 06/24/17 06/24/17 05:26 10:40 11:32 WBC RBC Hgb Hct MCV MCH MCHC RDW Plt Count MPV Neut % (Auto) Lymph % (Auto) [place] % (Auto) Eos % (Auto) Baso % (Auto) Neut # (Auto) Lymph # (Auto) [place] # (Auto) Eos # (Auto) Baso # (Auto) APTT pCO2 pO2 HCO3 ABG pH ABG Total CO2 ABG O2 Saturation ABG Base Excess Ari Test ABG Potassium A-a O2 Difference Sodium Chloride Glucose Lactate Liter Flow FiO2 Potassium Carbon Dioxide Anion Gap BUN Creatinine Est GFR ( Amer) Est GFR (Non-Af Amer) POC Glucose (mg/dL) 154 H 133 H Random Glucose Calcium Total Bilirubin GGT AST ALT Alkaline Phosphatase Total Protein Albumin Globulin Albumin/Globulin Ratio Arterial Blood Potassium Random Vancomycin 11.1 Influenza Typ A,B (EIA) 06/24/17 11:52 WBC RBC Hgb Hct MCV MCH MCHC RDW Plt Count MPV Neut % (Auto) Lymph % (Auto) [place] % (Auto) Eos % (Auto) Baso % (Auto) Neut # (Auto) Lymph # (Auto) [place] # (Auto) Eos # (Auto) Baso # (Auto) APTT 32.3 pCO2 pO2 HCO3 ABG pH ABG Total CO2 ABG O2 Saturation ABG Base Excess Ari Test ABG Potassium A-a O2 Difference Sodium Chloride Glucose Lactate Liter Flow FiO2 Potassium Carbon Dioxide Anion Gap BUN Creatinine Est GFR ( Amer) Est GFR (Non-Af Amer) POC Glucose (mg/dL) Random Glucose Calcium Total Bilirubin GGT AST ALT Alkaline Phosphatase Total Protein Albumin Globulin Albumin/Globulin Ratio Arterial Blood Potassium Random Vancomycin Influenza Typ A,B (EIA) Microbiology 06/21/17 11:06 Blood-Venous Blood Culture - Final Methicillin Resistant S Aureus 06/21/17 11:06 Blood-Venous Gram Stain - Final 06/21/17 10:30 Blood-Venous S.aureus & Coag-Neg Staph PNA FISH - Final 06/21/17 10:30 Blood-Venous Blood Culture - Final Methicillin Resistant S Aureus 06/21/17 10:30 Blood-Venous Gram Stain - Final 06/22/17 18:00 Blood-During Dialysis Blood Culture - Preliminary NO GROWTH AFTER 24 HOURS 06/22/17 16:41 Blood-During Dialysis Blood Culture - Preliminary NO GROWTH AFTER 24 HOURS Assessment and Plan (1) End stage renal disease Status: Acute (2) Fever Status: Acute (3) Gram-positive bacteremia Status: Acute (4) CKD (chronic kidney disease) requiring chronic dialysis Status: Acute (5) Diabetic neuropathy Status: Acute (6) History of osteomyelitis Status: Acute (7) Personal history of osteomyelitis Status: Acute - Assessment and Plan (Free Text) Assessment: A/P- 61 year old male with ESRD On HD, DM II, history of automutilation of b/l digits secondary to biting s/p OM of left hand distal digists with multiple rounds of fdc IV antibiotics and distal left hand digit amputations who is now admitted with weakness, fever , hypotention found to have GPC bacteremia. right thumb edematous and erythematous most likely from nail biting again and could be the source of the staph aureus bacteremia. afebrile normal wbc count blood cx- MRSA repeat blood cx- neg x 2 so far TTE- no mention of vegetations on the report read by pharmacy billing adjudicator. plan- agree with 1 extra dose of vanco 750 mg x once today. and continue with vanco post HD 1 gram keep trough between 15-20. advise to have plastic surgery evaluate the right thumb and sees if I and D is indicated and send fluid for cx. r/o OM of the digit as well. check ESR. all labs , imaging and hospital notes reviewed. all above d/w patient and he verbalizes full understanding of all above. ICU time 35 minutes.
[2017-06-24] MEDS ORDERED: Simethicone 80 mg Chewtab PO STA (20:51)
--- NOTE | 2017-06-24 21:26 | PN ---
DAILY PROGRESS NOTE DATE: 06/24/2017 SUBJECTIVE: The patient is seen today on 06/24/2017. He is not in any cardiopulmonary distress. The patient is more awake and alert. PHYSICAL EXAMINATION: VITAL SIGNS: Blood pressure 133/73, temperature 98.2, respiratory rate 13, and pulse 82. HEENT: Slightly pale mucosa of the conjunctivae. NECK: Supple. No JVD. No carotid bruit. No lymph node. No thyromegaly. CHEST AND LUNGS: Bilateral symmetrical expansion. Good air exchange. No rales. No rhonchi. CARDIOVASCULAR: PMI not localized. S1 and S2. No additional sounds. ABDOMEN: Normoactive bowel sounds. No tenderness. No organomegaly. No masses. EXTREMITIES: No cyanosis. No clubbing. No edema. CENTRAL NERVOUS SYSTEM: Alert, awake, and oriented x2. No neurological deficit could be appreciated except for weakness of both lower extremities right more than left. ASSESSMENT: Metabolic encephalopathy bacteremia; infected right hand thumb; end-stage renal disease, on hemodialysis; chronic atrial fibrillation, does not tolerate anticoagulants; and hypertension. PLAN: Continue current medications include vancomycin, ID consult, and follow recommendations. We will also consult hand surgery for the infected right hand thumb. Alverto Brower MD
--- NOTE | 2017-06-25 06:34 | CP.PCM.CON ---
History of Present Illness - History of Present Illness History of Present Illness: Hand Surgery Consult Note: Dr. Freitas 61M with PMHx ESRD on HD, AFIB, DM, CHF, CAD, HTN, HLD, SLEEP APNEA, TIA, presented to [facility] for cataract surgery on 06/21/17. However, surgery was cancelled due to febrile episode of 102F. Patient had + blood cultures which grew out MRSA. Patient was started on antibiotics in ED. Hand surgery was consulted for right thumb cellulitis. Patient has history of chewing his nails non-stop and developing infection in his fingers. He has had finger amputations due to this behavior. Patient reports noticing the thumb cellulitis about two days ago and reports it has not improved with time. Patient will be schedule for OR Tuesday morning. PMHx: as stated above PSH: L AVF, L hand finger amputations Allergies: cipro, penicillin, vit K2, dyphenhydramine, surgical tape Fam Hx: non-contributory Review of Systems - Review of Systems Review of Systems: 12pt ROS unremarkable, except as stated in HPI Past Patient History - Infectious Disease Hx of Infectious Diseases: None - Past Medical History & Family History Past Medical History?: Yes - Past Social History Smoking Status: Never Smoked - CARDIAC Hx Cardiac Disorders: Yes Hx Congestive Heart Failure: Yes Hx Hypercholesterolemia: Yes Hx Hypertension: Yes - PULMONARY Hx Pneumonia: Yes Hx Sleep Apnea: Yes Other/Comment: 0n 02 at home - NEUROLOGICAL Hx Dizziness: Yes Hx Transient Ischemic Attacks (TIA): Yes (2010) Other/Comment: periods of confusion when not feeling well - HEENT Hx HEENT Problems: Yes (RETINOPATHY/CATARACT) Hx Cataracts: Yes - RENAL Hx Chronic Kidney Disease: Yes Hx Dialysis: Yes Type of Dialysis Access: av shunt Date of Last Dialysis Treatment: 06/21/17 - ENDOCRINE/METABOLIC Hx Diabetes Mellitus Type 2: Yes - HEMATOLOGICAL/ONCOLOGICAL Hx Anemia: Yes - INTEGUMENTARY Hx Dermatological Problems: Yes Other/Comment: ULCER BACK RIGHT THIGH - MUSCULOSKELETAL/RHEUMATOLOGICAL Hx Arthritis: Yes - GASTROINTESTINAL Hx Gastrointestinal Disorders: Yes Hx Gastroesophageal Reflux: Yes Other/Comment: CONSTIPATION. ELEVATED LFTS. 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 LEFT HAND 1ST AND FOURTH DIGIT AMPUTATION 2016 - ANESTHESIA Hx Anesthesia: Yes Hx Anesthesia Reactions: Yes (PROPOFOL (CARDIAC ARREST)) Hx Malignant Hyperthermia: No Meds Allergies/Adverse Reactions: Allergies Allergy/AdvReac Type Severity Reaction Status Date / Time ciprofloxacin Allergy SWELLING Verified 06/21/17 10:25 Penicillins Allergy ANAPHYLAXIS Verified 06/21/17 10:25 propofol Allergy ANAPHYLAXIS Verified 06/21/17 10:25 vitamin K2 Allergy SHORTNESS Verified 06/21/17 10:25 OF BREATH diphenhydramine HCl AdvReac ITCHING Verified 06/21/17 10:25 [From Benadryl] surgical tape Allergy REDNESS Uncoded 06/21/17 10:25 - Medications Medications: Current Medications Acetaminophen (Tylenol 325mg Tab) 650 mg PO Q4 [facility] Last Admin: 06/22/17 10:16 Dose: 650 mg Acetaminophen (Tylenol 325mg Tab) 650 mg PO Q4 PRN PRN Reason: Pain, Mild (1-3) Last Admin: 06/23/17 21:43 Dose: 650 mg Aspirin (Ecotrin) 81 mg PO DAILY [facility] Last Admin: 06/24/17 08:50 Dose: 81 mg Atorvastatin Calcium (Lipitor) 20 mg PO HS [facility] Last Admin: 06/24/17 21:08 Dose: 20 mg Calcitriol (Rocaltrol) 0.25 mcg PO DAILY [facility] Last Admin: 06/24/17 08:51 Dose: 0.25 mcg Cholecalciferol (Vitamin D) 1,000 intlu PO DAILY [facility] Last Admin: 06/24/17 08:51 Dose: 1,000 intlu Clonidine HCl (Catapres) 0.2 mg PO TID [facility] Last Admin: 06/22/17 10:17 Dose: 0.2 mg Clonidine HCl (Catapres) 0.1 mg PO BID [facility] Clopidogrel Bisulfate (Plavix) 75 mg PO DAILY [facility] Last Admin: 06/24/17 08:51 Dose: 75 mg Epoetin Alexy (Procrit) 8,000 unit IV TTS [facility] Last Admin: 06/23/17 10:30 Dose: 8,000 unit Famotidine (Pepcid) 20 mg PO DAILY [facility] Glipizide (Glucotrol) 10 mg PO BID [facility] Last Admin: 06/24/17 17:12 Dose: 10 mg Heparin Sodium (Porcine) (Heparin) 5,000 units SC Q8 [facility] PRN Reason: Protocol Last Admin: 06/24/17 17:13 Dose: 5,000 units Vancomycin HCl 1 gm/ Sodium (Chloride) 250 mls @ 125 mls/hr IVPB TTS [facility] PRN Reason: Protocol Insulin Human Lispro (Humalog) 0 units SC ACHS [facility] PRN Reason: Protocol Last Admin: 06/24/17 21:07 Dose: Not Given Metoprolol Tartrate (Lopressor) 50 mg PO BID [facility] Last Admin: 06/22/17 16:41 Dose: Not Given Metoprolol Tartrate (Lopressor) 12.5 mg PO Q12 [facility] Last Admin: 06/24/17 21:08 Dose: 12.5 mg Ondansetron HCl (Zofran Inj) 4 mg IVP Q6 PRN PRN Reason: Nausea/Vomiting Ondansetron HCl (Zofran Odt) 4 mg PO Q8H PRN PRN Reason: Nausea/Vomiting Sennosides (Senokot Tab) 17.2 mg PO [facility] Last Admin: 06/24/17 21:10 Dose: 17.2 mg Sertraline HCl (Zoloft) 50 mg PO [facility] Last Admin: 06/21/17 21:35 Dose: 50 mg Sevelamer HCl (Renagel) 3,200 mg PO TID [facility] Last Admin: 06/24/17 17:15 Dose: 3,200 mg Vitamin B Complex/Vit C/Folic Acid (Nephro-Jeff) 1 tab PO DAILY [facility] Last Admin: 06/24/17 13:26 Dose: 1 tab Physical Exam - Constitutional Appears: Non-toxic, No Acute Distress, Chronically Ill - Head Exam Head Exam: NORMOCEPHALIC - ENT Exam ENT Exam: Mucous Membranes Moist - Respiratory Exam Respiratory Exam: NORMAL BREATHING PATTERN - Cardiovascular Exam Cardiovascular Exam: +S1, +S2 - GI/Abdominal Exam GI & Abdominal Exam: Soft - Neurological Exam Neurological exam: Alert, Oriented x3 - Psychiatric Exam Psychiatric exam: Normal Mood - Skin Skin Exam: Erythema, Warm Additional comments: Right thumb cellulitis worse along volar aspect of right hand Eryhtema along volar aspect of right hand extending to thenar eminence Motor/sensory function intact Results - Vital Signs Recent Vital Signs: Last Vital Signs Temp 97.8 F 06/25/17 04:00 Pulse 78 06/25/17 04:00 Resp 12 06/25/17 04:00 BP 138/70 06/25/17 04:00 Pulse Ox 100 06/25/17 04:00 - Labs Result Diagrams: 06/24/17 04:25 06/24/17 04:25 Labs: Laboratory Results - last 24 hr 06/24/17 06/24/17 06/24/17 10:40 11:32 11:52 APTT 32.3 POC Glucose (mg/dL) 133 H Random Vancomycin 11.1 06/24/17 06/24/17 16:30 21:03 APTT POC Glucose (mg/dL) 165 H 187 H Random Vancomycin Assessment & Plan - Assessment and Plan (Free Text) Assessment: 61M with R thumb abscess/cellulitis Plan: NPO past MN For OR in AM for R Thumb abscess I&D Dialysis s/p procedure in AM Hold anti-coagulation D/w Dr. Zena GIL PGY2
[2017-06-25] MEDS: Insulin Lispro (humaLOG) 100 Units/ml Inj SC SCH ×3 (07:30→22:53)
[2017-06-25] MEDS ORDERED: Etomidate 20 mg/10ml Inj IV ONE (07:49)
[2017-06-25] MEDS ORDERED: Lidocaine 2% Jelly (5 ml) TOP ONE (07:50)
--- NOTE | 2017-06-25 07:54 | CP.PCM.PCO ---
Physician Communication Note - Physician Communication Note Physician Communication Note: Patient with right thumb abscess Assessment & Plan - Assessment and Plan (Free Text) Assessment: PE: R thumb cellulitis, swelling mostly on radial side of thumb with cellulitis to the base of the thumb but not extending to the palm. Fluctuant area along the radial side at the distal 1/2 of the thumb. Bl Cx - MRSA A/P 61 year old male with sepsis and right thumb abscess. Plan: NPO since last night in anticipation of I&D of right thumb in the OR. New cultures will be sent. Dialysis planned for after surgery. If dressings become bloody because of heparin used in dialysis may change outer dressing. Plan to remove dressing tomorrow and start warm soaks with bedadine (30cc) and saline ( 150-200 cc) for 10 min every 3-4 hrs while awake. Will defer to medicine team regarding his sepsis/bacteremia. Finger could be source of the systemic infection but more likely, the cellulitis is from seeding from the blood MRSA since he first came with fevers and would expect the abscess to be worse and involving entire hand if the finger was the source of the bacteremia.
[2017-06-25] MEDS ORDERED: Bupivacaine HCl 0.5% PF (30 ml) Inj ONE (07:55)
[2017-06-25] MEDS ORDERED: Lidocaine 2% Inj (20ml) ONE (07:56)
[2017-06-25] MEDS ORDERED: Midazolam 2 MG/2 ML VIAL ONE (08:05)
[2017-06-25] MEDS ORDERED: ePHEDrine 50 mg/ml Inj ONE (08:18)
[2017-06-25] MEDS ORDERED: Bupivacaine 0.5% Inj(30mL) IJ ONE ×2 (08:20)
[2017-06-25] MEDS ORDERED: Lidocaine 2% Inj (20ml) IJ ONE ×2 (08:37)
[2017-06-25] MEDS ORDERED: Sodium Chloride 0.9% 500 ML IV ONE (08:38)
[2017-06-25] MEDS ORDERED: Oxycodone/Acetaminophen 5/325 mg Tab PO PRN (10:17)
--- NOTE | 2017-06-25 10:20 | PCM.SURG1 ---
Surgeon's Initial Post Op Note - Surgeon's Notes Surgeon: Dr. Freitas [employer] Jud[employer] Coach: Magaly Johnson PGY2 Type of Anesthesia: IV Sedation, Local Pre-Operative Diagnosis: R thumb tenosynovitis Operative Findings: abscess in R thumb tendon sheath Post-Operative Diagnosis: Same Operation Performed: incision and drainage of tenosynovitis R thumb Specimen/Specimens Removed: abscess Estimated Blood Loss: EBL {In ML}: 10 Blood Products Given: N/A Drains Used: No Drains Post-Op Condition: Good Date of Surgery/Procedure: 06/25/17 Time of Surgery/Procedure: 10:21
[2017-06-25] MEDS: Multivitamin Vitamin B Complex (Nephro-Vite) Tab PO SCH (14:02)
[2017-06-25] MEDS: Cholecalciferol 1,000 INTLU TAB PO SCH (14:04)
[2017-06-25] MEDS: Epoetin Alfa 20000 UNIT/ML (RENAL DOSE) IV SCH (14:10)
--- NOTE | 2017-06-25 14:36 | CP.PCM.PN ---
Subjective - Date & Time of Evaluation Date of Evaluation: 06/25/17 Time of Evaluation: 09:10 - Subjective Subjective: RENAL FOLLOW UP Impresion: MRSA sepsis ? source as hand Diabetic chronic Kidney Disease (E11.22) Hypertensive Chronic Kidney Disease (I12.0) End stage renal disease (N18.6) dependence on hemodialysis (Z99.2) (TTS) via AVF Anemia (D64.9), Hyperphosphatemia (E83.39), Secondary Hyperparathyroidism (E21.1 ), HTN (I12.0) Thrombocytopenia Plan: Hd to today, and continue TTS aContinue with Nephrovite 1 tab/day. PRBC as needed for anemia. On ROSE as epogen Continue with phos binders, last phos level 3.8 Continue with calcitriol. BP control with meds as ordered. Patient not on RAAS nury, may consider to add if needed for high BP Dose meds/antibiotics (if needed) for ESRD status- being followed by ID Subjective: seen and examined post-op s/p i and d Physical Examination: General Appearance: Comfortable, in no acute respiratory distress, co-operative . Vitals reviewed and noted as below Head; Atraumatic, normocephalic ENT: no ulcers no thrush. Tongue is midline. Oropharynx: no rash or ulcers. EYES: Pupils are equal, round and reactive to light accommodation. Eye muscles and extraocular movement intact. Sclera is anicteric. Neck; supple no lymphadenopathy, no thyromegaly or bruit Lungs: Normal respiratory rate/effort. Breath sounds bilateral equal and clear Heart: Normal rate. s1s2 normal. No rub or gallop. Extremities: no edema. has varicose veins Neurological: Patient is alert, awake and oriented to person, place and time. No focal deficit. Strength bilateral appropriate and equal Skin: Warm and dry. Normal turgor. evidence of biting of nails Abdomen: Abdomen is soft. Bowel sounds +. There is no abdominal tenderness, no guarding/rigidity or organomegaly Psych: normal insight and normal affect/mood MSK: dressing around R hand/forearm : kidney or bladder not palpable Access: AVF Labs/imaging reviewed. Past medical history, past surgical history, family history, social history, allergy reviewed and noted as below Family Hx: no hx of CKD. Non contributory Objective - Vital Signs/Intake and Output Vital Signs (last 24 hours): Temp Pulse Resp BP Pulse Ox 97.5 F L 92 H 18 153/86 H 95 06/25/17 11:50 06/25/17 11:50 06/25/17 11:50 06/25/17 11:50 06/25/17 11:50 Intake and Output: 06/25/17 06/25/17 06:59 18:59 Intake Total 100 50 Output Total 0 Balance 100 50 - Medications Medications: Current Medications Acetaminophen (Tylenol 325mg Tab) 650 mg PO Q4 [facility] Last Admin: 06/22/17 10:16 Dose: 650 mg Acetaminophen (Tylenol 325mg Tab) 650 mg PO Q4 PRN PRN Reason: Pain, Mild (1-3) Last Admin: 06/23/17 21:43 Dose: 650 mg Aspirin (Ecotrin) 81 mg PO DAILY [facility] Last Admin: 06/24/17 08:50 Dose: 81 mg Atorvastatin Calcium (Lipitor) 20 mg PO HS [facility] Last Admin: 06/24/17 21:08 Dose: 20 mg Calcitriol (Rocaltrol) 0.25 mcg PO DAILY [facility] Last Admin: 06/25/17 14:00 Dose: 0.25 mcg Cholecalciferol (Vitamin D) 1,000 intlu PO DAILY [facility] Last Admin: 06/25/17 14:04 Dose: 1,000 intlu Clonidine HCl (Catapres) 0.2 mg PO TID [facility] Last Admin: 06/22/17 10:17 Dose: 0.2 mg Clonidine HCl (Catapres) 0.1 mg PO BID [facility] Clopidogrel Bisulfate (Plavix) 75 mg PO DAILY [facility] Last Admin: 06/24/17 08:51 Dose: 75 mg Epoetin Alexy (Procrit) 8,000 unit IV TTS [facility] Last Admin: 06/25/17 14:10 Dose: 8,000 unit Famotidine (Pepcid) 20 mg PO DAILY [facility] Last Admin: 06/25/17 14:00 Dose: 20 mg Glipizide (Glucotrol) 10 mg PO BID [facility] Last Admin: 06/25/17 08:00 Dose: Not Given Heparin Sodium (Porcine) (Heparin) 5,000 units SC Q8 [facility] PRN Reason: Protocol Last Admin: 06/24/17 17:13 Dose: 5,000 units Vancomycin HCl 1 gm/ Sodium (Chloride) 250 mls @ 125 mls/hr IVPB TTS [facility] PRN Reason: Protocol Insulin Human Lispro (Humalog) 0 units SC ACHS [facility] PRN Reason: Protocol Last Admin: 06/25/17 07:30 Dose: Not Given Metoprolol Tartrate (Lopressor) 50 mg PO BID [facility] Last Admin: 06/22/17 16:41 Dose: Not Given Metoprolol Tartrate (Lopressor) 12.5 mg PO Q12 [facility] Last Admin: 06/25/17 09:45 Dose: Not Given Ondansetron HCl (Zofran Inj) 4 mg IVP Q6 PRN PRN Reason: Nausea/Vomiting Ondansetron HCl (Zofran Odt) 4 mg PO Q8H PRN PRN Reason: Nausea/Vomiting Oxycodone/Acetaminophen (Percocet 5/325 Mg Tab) 2 tab PO Q4 PRN PRN Reason: Pain, moderate (4-7) Stop: 06/28/17 10:18 Sennosides (Senokot Tab) 17.2 mg PO HS [facility] Last Admin: 06/24/17 21:10 Dose: 17.2 mg Sertraline HCl (Zoloft) 50 mg PO HS [facility] Last Admin: 06/21/17 21:35 Dose: 50 mg Sevelamer HCl (Renagel) 3,200 mg PO TID [facility] Last Admin: 06/25/17 13:58 Dose: 3,200 mg Vitamin B Complex/Vit C/Folic Acid (Nephro-Jeff) 1 tab PO DAILY [facility] Last Admin: 06/25/17 14:02 Dose: 1 tab - Labs Labs: 06/24/17 04:25 06/24/17 04:25 PT 12.3 Seconds (9.8-13.1) 06/21/17 11:02 INR 1.1 (0.9-1.2) 06/21/17 11:02 APTT 32.3 Seconds (25.6-37.1) 06/24/17 11:52
[2017-06-26] MEDS ORDERED: Povidone Iodine Topical 10% Sol ONE (08:35)
[2017-06-26] MEDS: Insulin Lispro (humaLOG) 100 Units/ml Inj SC SCH ×5 (09:37→23:07)
[2017-06-26] MEDS: Multivitamin Vitamin B Complex (Nephro-Vite) Tab PO SCH (09:39)
[2017-06-26] MEDS: Cholecalciferol 1,000 INTLU TAB PO SCH (09:41)
--- NOTE | 2017-06-26 22:52 | PN ---
DATE: 06/25/2017 SUBJECTIVE: The patient was seen on 06/25/2017, he was status post I and D of right hand infection. OBJECTIVE: VITAL SIGNS: Blood pressure 115/81, temperature 97.6, respiratory rate 20, and pulse 88. HEENT: Normal-appearing mucosa of the conjunctivae, oropharynx, and nasal membrane mucosa. NECK: Supple. No JVD. No carotid bruit. No lymph node. No thyromegaly. CHEST AND LUNGS: Bilateral symmetrical expansion. Good air exchange. No rales. No rhonchi. CARDIOVASCULAR: PMI not localized, S1 and S2. No additional sounds. ABDOMEN: Normoactive bowel sounds. No tenderness. No organomegaly. No masses. EXTREMITIES: Right hand is surgically dressed. No cyanosis. No clubbing. No edema. CENTRAL NERVOUS SYSTEM: Alert, awake, and oriented x2 and moves all extremities equally. ASSESSMENT: Bacteremia; right hand infection; end-stage renal disease, on hemodialysis; type 2 diabetes mellitus; and chronic atrial fibrillation. PLAN: Continue current IV antibiotics. Follow recommendations of the hand surgery. Alverto Brower MD
--- NOTE | 2017-06-26 22:59 | PN ---
DAILY PROGRESS NOTE DATE: 06/26/2017 SUBJECTIVE: The patient is seen on 06/26/2017. He is not in any cardiopulmonary distress. PHYSICAL EXAMINATION: VITAL SIGNS: The patient is afebrile with blood pressure 149/86, temperature 98.9, respiratory rate 18, and pulse 77. HEENT: Slightly pale mucosa of the conjunctivae. NECK: Supple. No JVD. No carotid bruit. No lymph node. No thyromegaly. CHEST AND LUNGS: Bilateral symmetrical expansion. Good air exchange. No rales. No rhonchi. CARDIOVASCULAR: PMI not localized. S1 and S2. No additional sounds. ABDOMEN: Normoactive bowel sounds. No tenderness. No organomegaly. No masses. EXTREMITIES: No cyanosis. No clubbing. No edema. Right hand is surgically dressed after the incision and drainage of the right thumb infection. CENTRAL NERVOUS SYSTEM: Alert, awake, and oriented x2 and the patient moves all extremities equally. ASSESSMENT: Bacteremia; right hand infection; end-stage renal disease, on hemodialysis; chronic atrial fibrillation; hypertension; and type 2 diabetes mellitus. PLAN: Continue current IV antibiotics as per ID and continue local wound treatment. Continue hemodialysis as per Nephrology. Continue current medications. Alverto Brower MD
--- NOTE | 2017-06-27 07:39 | OP ---
PROCEDURE DATE: 06/25/2017 PREOPERATIVE DIAGNOSIS: Right thumb tenosynovitis. POSTOPERATIVE DIAGNOSIS: Right thumb tenosynovitis. PROCEDURE: 1. Right wrist block. 2. Incision and drainage of right thumb ruptured tendon sheath. TYPE OF ANESTHESIA: Sedation. COUNTS: Lap, sponge, and needle counts were correct at the end of the case. CONDITION: The patient was thereupon discharged to recovery. INDICATIONS FOR SURGERY: The patient is a 61-year-old male with diabetes, AFib, and recent high fevers causing the cataract surgery canceled. He has had erythema to the right thumb for the last 2 days despite IV antibiotics and was brought to the OR with presumptive diagnosis of infectious tenosynovitis. DESCRIPTION OF PROCEDURE: The patient was identified in the holding area. The right arm was marked and he was then brought to the operating room and laid supine on the operating room table. Once sedation was provided, the right wrist was blocked using 10 mL of 1% lidocaine, 0.5% Marcaine in 50:50 mixture. The arm was then prepped and draped in the usual sterile fashion without using the tourniquet. The right thumb was incised in from of the proximal phalanx in order to expose the flexor tendon sheath. Neurovascular bundle was identified and preserved. was used to incise the flexor tendon sheath and immediately purulent discharge was expressed. Cultures were sent. incision produced additional fluid. The counterincision was made over the carpal head in an oblique fashion in the event that eventual need to be created the incisions, which coincide with incision made. A 200 mL of normal saline was then used along with an 18-gauge splinter cast in order to irrigate the flexor tendon sheath until the fluid was cleared. Both areas were then packed with 1/4 inch plain tape and dressing applied using Xeroform, 4 x 4 gauze, Webril in place with the Coban. He tolerated the procedure well, was transferred to stretcher, and brought to the recovery room in stable condition. Corinne Freitas MD
[2017-06-27] MEDS: Insulin Lispro (humaLOG) 100 Units/ml Inj SC SCH ×4 (08:50→22:12)
[2017-06-27] MEDS: Cholecalciferol 1,000 INTLU TAB PO SCH (08:51)
--- NOTE | 2017-06-27 09:32 | CP.PCM.PN ---
Subjective - Date & Time of Evaluation Date of Evaluation: 06/27/17 Time of Evaluation: 09:31 - Subjective Subjective: RENAL FOLLOW UP Impresion: MRSA sepsis ? source as hand Diabetic chronic Kidney Disease (E11.22) Hypertensive Chronic Kidney Disease (I12.0) End stage renal disease (N18.6) dependence on hemodialysis (Z99.2) (TTS) via AVF Anemia (D64.9), Hyperphosphatemia (E83.39), Secondary Hyperparathyroidism (E21.1 ), HTN (I12.0) Thrombocytopenia Plan: HD TTS Continue with Nephrovite 1 tab/day. PRBC as needed for anemia. On ROSE as epogen Continue with phos binders Continue with calcitriol. BP control with meds as ordered. Patient not on RAAS nury, may consider to add if needed for high BP Dose meds/antibiotics for ESRD status- being followed by ID will coordinate w/ primary team if needs abx as outpt Subjective: seen and examined denies n/v feels ok but tired wants to go home Physical Examination: General Appearance: Comfortable, in no acute respiratory distress, co-operative . Vitals reviewed and noted as below Head; Atraumatic, normocephalic ENT: no ulcers no thrush. Tongue is midline. Oropharynx: no rash or ulcers. EYES: Pupils are equal, round . Eye muscles and extraocular movement intact. Sclera is anicteric. Neck; supple no lymphadenopathy, no thyromegaly or bruit Lungs: Normal respiratory rate/effort. Breath sounds bilateral equal and clear Heart: Normal rate. s1s2 normal. No rub or gallop. Extremities: no edema. has varicose veins Neurological: Patient is alert, awake and oriented to person, place and time. No focal deficit. Strength bilateral appropriate and equal Skin: Warm and dry. Normal turgor. evidence of biting of nails Abdomen: Abdomen is soft. Bowel sounds +. There is no abdominal tenderness, no guarding/rigidity or organomegaly Psych: normal insight and normal affect/mood MSK: dressing around R hand/forearm : kidney or bladder not palpable Access: AVF Labs/imaging reviewed. Past medical history, past surgical history, family history, social history, allergy reviewed and noted as below Family Hx: no hx of CKD. Non contributory Objective - Vital Signs/Intake and Output Vital Signs (last 24 hours): Temp Pulse Resp BP Pulse Ox 98.1 F 81 19 154/86 H 100 06/27/17 07:56 06/27/17 08:51 06/27/17 07:56 06/27/17 08:51 06/27/17 07:56 - Medications Medications: Current Medications Acetaminophen (Tylenol 325mg Tab) 650 mg PO Q4 [facility] Last Admin: 06/22/17 10:16 Dose: 650 mg Acetaminophen (Tylenol 325mg Tab) 650 mg PO Q4 PRN PRN Reason: Pain, Mild (1-3) Last Admin: 06/23/17 21:43 Dose: 650 mg Aspirin (Ecotrin) 81 mg PO DAILY [facility] Last Admin: 06/27/17 08:50 Dose: 81 mg Atorvastatin Calcium (Lipitor) 20 mg PO HS [facility] Last Admin: 06/26/17 21:47 Dose: 20 mg Calcitriol (Rocaltrol) 0.25 mcg PO DAILY [facility] Last Admin: 06/27/17 08:51 Dose: 0.25 mcg Cholecalciferol (Vitamin D) 1,000 intlu PO DAILY [facility] Last Admin: 06/27/17 08:51 Dose: 1,000 intlu Clonidine HCl (Catapres) 0.2 mg PO TID [facility] Last Admin: 06/22/17 10:17 Dose: 0.2 mg Clonidine HCl (Catapres) 0.1 mg PO BID [facility] Clopidogrel Bisulfate (Plavix) 75 mg PO DAILY [facility] Last Admin: 06/27/17 08:51 Dose: 75 mg Epoetin Alexy (Procrit) 8,000 unit IV TTS [facility] Last Admin: 06/25/17 14:10 Dose: 8,000 unit Famotidine (Pepcid) 20 mg PO DAILY [facility] Last Admin: 06/27/17 08:52 Dose: 20 mg Glipizide (Glucotrol) 10 mg PO BID [facility] Last Admin: 06/27/17 08:50 Dose: 10 mg Heparin Sodium (Porcine) (Heparin) 5,000 units SC Q8 [facility] PRN Reason: Protocol Last Admin: 06/24/17 17:13 Dose: 5,000 units Vancomycin HCl 1 gm/ Sodium (Chloride) 250 mls @ 125 mls/hr IVPB TTS [facility] PRN Reason: Protocol Last Admin: 06/25/17 19:49 Dose: 125 mls/hr Insulin Human Lispro (Humalog) 0 units SC ACHS [facility] PRN Reason: Protocol Last Admin: 06/27/17 08:50 Dose: 1 units Metoprolol Tartrate (Lopressor) 50 mg PO BID [facility] Last Admin: 06/22/17 16:41 Dose: Not Given Metoprolol Tartrate (Lopressor) 12.5 mg PO Q12 [facility] Last Admin: 06/27/17 08:51 Dose: 12.5 mg Ondansetron HCl (Zofran Inj) 4 mg IVP Q6 PRN PRN Reason: Nausea/Vomiting Ondansetron HCl (Zofran Odt) 4 mg PO Q8H PRN PRN Reason: Nausea/Vomiting Oxycodone/Acetaminophen (Percocet 5/325 Mg Tab) 2 tab PO Q4 PRN PRN Reason: Pain, moderate (4-7) Stop: 06/28/17 10:18 Sennosides (Senokot Tab) 17.2 mg PO [facility] Last Admin: 06/26/17 21:54 Dose: Not Given Sertraline HCl (Zoloft) 50 mg PO [facility] Last Admin: 06/21/17 21:35 Dose: 50 mg Sevelamer HCl (Renagel) 3,200 mg PO TID [facility] Last Admin: 06/27/17 08:51 Dose: 3,200 mg Vitamin B Complex/Vit C/Folic Acid (Nephro-Jeff) 1 tab PO DAILY [facility] Last Admin: 06/26/17 09:39 Dose: 1 tab - Labs Labs: 06/24/17 04:25 06/24/17 04:25 PT 12.3 Seconds (9.8-13.1) 06/21/17 11:02 INR 1.1 (0.9-1.2) 06/21/17 11:02 APTT 32.3 Seconds (25.6-37.1) 06/24/17 11:52
--- NOTE | 2017-06-27 13:37 | CP.PCM.PN ---
Subjective - Date & Time of Evaluation Date of Evaluation: 06/27/17 Time of Evaluation: 13:36 - Subjective Subjective: ID Note- patient is seen and examined today. he is s/p I and D of the right thumb abscess. he is doing well and denies any fever or chills. Objective - Vital Signs/Intake and Output Vital Signs (last 24 hours): Temp Pulse Resp BP Pulse Ox 98.1 F 81 19 154/86 H 100 06/27/17 09:00 06/27/17 09:00 06/27/17 09:00 06/27/17 09:00 06/27/17 09:00 - Medications Medications: Current Medications Acetaminophen (Tylenol 325mg Tab) 650 mg PO Q4 [facility] Last Admin: 06/22/17 10:16 Dose: 650 mg Acetaminophen (Tylenol 325mg Tab) 650 mg PO Q4 PRN PRN Reason: Pain, Mild (1-3) Last Admin: 06/23/17 21:43 Dose: 650 mg Aspirin (Ecotrin) 81 mg PO DAILY [facility] Last Admin: 06/27/17 08:50 Dose: 81 mg Atorvastatin Calcium (Lipitor) 20 mg PO HS [facility] Last Admin: 06/26/17 21:47 Dose: 20 mg Calcitriol (Rocaltrol) 0.25 mcg PO DAILY [facility] Last Admin: 06/27/17 08:51 Dose: 0.25 mcg Cholecalciferol (Vitamin D) 1,000 intlu PO DAILY [facility] Last Admin: 06/27/17 08:51 Dose: 1,000 intlu Clonidine HCl (Catapres) 0.2 mg PO TID [facility] Last Admin: 06/22/17 10:17 Dose: 0.2 mg Clonidine HCl (Catapres) 0.1 mg PO BID [facility] Clopidogrel Bisulfate (Plavix) 75 mg PO DAILY [facility] Last Admin: 06/27/17 08:51 Dose: 75 mg Epoetin Alexy (Procrit) 8,000 unit IV TTS [facility] Last Admin: 06/25/17 14:10 Dose: 8,000 unit Famotidine (Pepcid) 20 mg PO DAILY [facility] Last Admin: 06/27/17 08:52 Dose: 20 mg Glipizide (Glucotrol) 10 mg PO BID [facility] Last Admin: 06/27/17 08:50 Dose: 10 mg Heparin Sodium (Porcine) (Heparin) 5,000 units SC Q8 [facility] PRN Reason: Protocol Last Admin: 06/24/17 17:13 Dose: 5,000 units Vancomycin HCl 1 gm/ Sodium (Chloride) 250 mls @ 125 mls/hr IVPB TTS [facility] PRN Reason: Protocol Last Admin: 06/25/17 19:49 Dose: 125 mls/hr Insulin Human Lispro (Humalog) 0 units SC ACHS [facility] PRN Reason: Protocol Last Admin: 06/27/17 08:50 Dose: 1 units Metoprolol Tartrate (Lopressor) 50 mg PO BID [facility] Last Admin: 06/22/17 16:41 Dose: Not Given Metoprolol Tartrate (Lopressor) 12.5 mg PO Q12 [facility] Last Admin: 06/27/17 08:51 Dose: 12.5 mg Ondansetron HCl (Zofran Inj) 4 mg IVP Q6 PRN PRN Reason: Nausea/Vomiting Ondansetron HCl (Zofran Odt) 4 mg PO Q8H PRN PRN Reason: Nausea/Vomiting Oxycodone/Acetaminophen (Percocet 5/325 Mg Tab) 2 tab PO Q4 PRN PRN Reason: Pain, moderate (4-7) Stop: 06/28/17 10:18 Sennosides (Senokot Tab) 17.2 mg PO HS [facility] Last Admin: 06/26/17 21:54 Dose: Not Given Sertraline HCl (Zoloft) 50 mg PO HS [facility] Last Admin: 06/21/17 21:35 Dose: 50 mg Sevelamer HCl (Renagel) 3,200 mg PO TID [facility] Last Admin: 06/27/17 08:51 Dose: 3,200 mg Vitamin B Complex/Vit C/Folic Acid (Nephro-Jeff) 1 tab PO DAILY [facility] Last Admin: 06/26/17 09:39 Dose: 1 tab - Labs Labs: - Additional Findings Additional findings: - Constitutional Appears: No Acute Distress, Chronically Ill - Head Exam Head Exam: ATRAUMATIC - Eye Exam Eye Exam: EOMI - ENT Exam ENT Exam: Normal Oropharynx - Neck Exam Neck exam: Positive for: Full Rom - Respiratory Exam Respiratory Exam: Clear to Auscultation Bilateral, NORMAL BREATHING PATTERN - Cardiovascular Exam Cardiovascular Exam: RRR, +S1, +S2 - GI/Abdominal Exam GI & Abdominal Exam: Normal Bowel Sounds, Soft Additional comments: NT, ND - Extremities Exam Additional comments: right distal thumb to mid thumb region s/p local I and d and wrapped in gauze but no longer any edema and erythema has resolved, only small opening , - Neurological Exam Neurological exam: Alert, Oriented x 3 Laboratory Results - last 72 hr 06/24/17 06/24/17 06/25/17 16:30 21:03 05:54 POC Glucose (mg/dL) 165 H 187 H 103 06/25/17 06/25/17 06/26/17 15:35 22:07 05:12 POC Glucose (mg/dL) 83 129 H 155 H 06/26/17 06/26/17 06/26/17 11:06 16:13 21:33 POC Glucose (mg/dL) 165 H 86 130 H 06/27/17 06/27/17 05:21 11:05 POC Glucose (mg/dL) 168 H 167 H Microbiology 06/22/17 18:00 Blood-During Dialysis Blood Culture - Preliminary NO GROWTH AFTER 4 DAYS 06/22/17 16:41 Blood-During Dialysis Blood Culture - Preliminary NO GROWTH AFTER 4 DAYS 06/22/17 19:13 Naris MRSA Culture (Admit) - Final 06/21/17 11:06 Blood-Venous Blood Culture - Final Methicillin Resistant S Aureus 06/21/17 11:06 Blood-Venous Gram Stain - Final 06/21/17 10:30 Blood-Venous S.aureus & Coag-Neg Staph PNA FISH - Final 06/21/17 10:30 Blood-Venous Blood Culture - Final Methicillin Resistant S Aureus 06/21/17 10:30 Blood-Venous Gram Stain - Final Assessment and Plan (1) End stage renal disease Status: Acute (2) Fever Status: Acute (3) Gram-positive bacteremia Status: Acute (4) CKD (chronic kidney disease) requiring chronic dialysis Status: Acute (5) Diabetic neuropathy Status: Acute (6) History of osteomyelitis Status: Acute (7) Personal history of osteomyelitis Status: Acute - Assessment and Plan (Free Text) Assessment: A/P- 61 year old male with ESRD On HD, DM II, 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 right thumb abscess s/p I and D afebrile normal wbc count blood cx- MRSA repeat blood cx- neg x 2 so far TTE- no mention of vegetations on the report read by mesh worker. plan- advise total of 14-21 days of IV vanco post HD for MRSA bacteremia. and continue with vanco post HD 1 gram keep trough between 15-20. advise to f/u with his PMD and the surgeon as outpatient. all above d/w patient and he verbalizes full understanding of all above. also d/w .
[2017-06-27] MEDS: Multivitamin Vitamin B Complex (Nephro-Vite) Tab PO SCH (14:09)
--- NOTE | 2017-06-27 15:10 | CP.PCM.PN ---
Subjective - Date & Time of Evaluation Date of Evaluation: 06/27/17 Time of Evaluation: 06:50 - Subjective Subjective: Plastic/Hand Surgery Pt Seen and examined. NAEO. continues hand soaks on schedule. No complaints at this time. Feeling much better. Objective - Vital Signs/Intake and Output Vital Signs (last 24 hours): Temp Pulse Resp BP Pulse Ox 98.1 F 81 19 154/86 H 100 06/27/17 09:00 06/27/17 09:00 06/27/17 09:00 06/27/17 09:00 06/27/17 09:00 - Medications Medications: Current Medications Acetaminophen (Tylenol 325mg Tab) 650 mg PO Q4 [facility] Last Admin: 06/22/17 10:16 Dose: 650 mg Acetaminophen (Tylenol 325mg Tab) 650 mg PO Q4 PRN PRN Reason: Pain, Mild (1-3) Last Admin: 06/23/17 21:43 Dose: 650 mg Aspirin (Ecotrin) 81 mg PO DAILY [facility] Last Admin: 06/27/17 08:50 Dose: 81 mg Atorvastatin Calcium (Lipitor) 20 mg PO HS [facility] Last Admin: 06/26/17 21:47 Dose: 20 mg Calcitriol (Rocaltrol) 0.25 mcg PO DAILY [facility] Last Admin: 06/27/17 08:51 Dose: 0.25 mcg Cholecalciferol (Vitamin D) 1,000 intlu PO DAILY [facility] Last Admin: 06/27/17 08:51 Dose: 1,000 intlu Clonidine HCl (Catapres) 0.2 mg PO TID [facility] Last Admin: 06/22/17 10:17 Dose: 0.2 mg Clonidine HCl (Catapres) 0.1 mg PO BID [facility] Clopidogrel Bisulfate (Plavix) 75 mg PO DAILY [facility] Last Admin: 06/27/17 08:51 Dose: 75 mg Epoetin Alexy (Procrit) 8,000 unit IV TTS [facility] Last Admin: 06/25/17 14:10 Dose: 8,000 unit Famotidine (Pepcid) 20 mg PO DAILY [facility] Last Admin: 06/27/17 08:52 Dose: 20 mg Glipizide (Glucotrol) 10 mg PO BID [facility] Last Admin: 06/27/17 08:50 Dose: 10 mg Heparin Sodium (Porcine) (Heparin) 5,000 units SC Q8 [facility] PRN Reason: Protocol Last Admin: 06/24/17 17:13 Dose: 5,000 units Vancomycin HCl 1 gm/ Sodium (Chloride) 250 mls @ 125 mls/hr IVPB TTS [facility] PRN Reason: Protocol Last Admin: 06/25/17 19:49 Dose: 125 mls/hr Insulin Human Lispro (Humalog) 0 units SC ACHS [facility] PRN Reason: Protocol Last Admin: 06/27/17 13:00 Dose: 1 units Metoprolol Tartrate (Lopressor) 50 mg PO BID [facility] Last Admin: 06/22/17 16:41 Dose: Not Given Metoprolol Tartrate (Lopressor) 12.5 mg PO Q12 [facility] Last Admin: 06/27/17 08:51 Dose: 12.5 mg Ondansetron HCl (Zofran Inj) 4 mg IVP Q6 PRN PRN Reason: Nausea/Vomiting Ondansetron HCl (Zofran Odt) 4 mg PO Q8H PRN PRN Reason: Nausea/Vomiting Oxycodone/Acetaminophen (Percocet 5/325 Mg Tab) 2 tab PO Q4 PRN PRN Reason: Pain, moderate (4-7) Stop: 06/28/17 10:18 Sennosides (Senokot Tab) 17.2 mg PO HS [facility] Last Admin: 06/26/17 21:54 Dose: Not Given Sertraline HCl (Zoloft) 50 mg PO HS [facility] Last Admin: 06/21/17 21:35 Dose: 50 mg Sevelamer HCl (Renagel) 3,200 mg PO TID [facility] Last Admin: 06/27/17 14:11 Dose: 3,200 mg Vitamin B Complex/Vit C/Folic Acid (Nephro-Jeff) 1 tab PO DAILY [facility] Last Admin: 06/27/17 14:09 Dose: 1 tab - Labs Labs: 06/24/17 04:25 06/24/17 04:25 PT 12.3 Seconds (9.8-13.1) 06/21/17 11:02 INR 1.1 (0.9-1.2) 06/21/17 11:02 APTT 32.3 Seconds (25.6-37.1) 06/24/17 11:52 - Constitutional Appears: Non-toxic, No Acute Distress - Head Exam Head Exam: ATRAUMATIC, NORMOCEPHALIC - Eye Exam Eye Exam: EOMI. absent: Conjunctival injection - Respiratory Exam Respiratory Exam: NORMAL BREATHING PATTERN. absent: Respiratory Distress - GI/Abdominal Exam GI & Abdominal Exam: Soft. absent: Tenderness - Extremities Exam Additional comments: R hand sensation intact, good ROM. Mild TTP over incisions. 5/5 strength. L hand WNL - Neurological Exam Neurological Exam: Alert, Awake, Oriented x3 - Skin Skin Exam: Dry, Warm Assessment and Plan - Assessment and Plan (Free Text) Assessment: 61M s/p incision and drainage of tenosynovitis R thumb Plan: Hand continues to improve. Continue soaks, keep wounds clean and wounds will close over time Continue abx per ID Follow up in [address] Freitas No further surgical intervention planned at this time D/W Dr. Zena Juarez PGY4
[2017-06-27 15:49] VITALS: RESP 20
--- NOTE | 2017-06-27 22:20 | PN ---
DAILY PROGRESS NOTE DATE: 06/27/2017 SUBJECTIVE: The patient is seen today 06/27/2017. He is not in any cardiopulmonary distress. OBJECTIVE: VITAL SIGNS: Blood pressure 161/84, temperature 98.7, respiratory rate 20, and pulse 84. HEENT: Pupils equal and reactive to light. Normal-appearing mucosa of the conjunctivae, oropharynx, and nasal membrane mucosa. NECK: Supple. No JVD. No carotid bruit. No lymph node. No thyromegaly. CHEST AND LUNGS: Bilateral symmetrical expansion. Good air exchange. No rales. No rhonchi. CARDIOVASCULAR: PMI not localized. S1 and S2. No additional sounds. ABDOMEN: Normoactive bowel sounds. No tenderness. No organomegaly. No masses. EXTREMITIES: No cyanosis. No clubbing. No edema. CENTRAL NERVOUS SYSTEM: Alert, awake, and oriented x2 and moves all extremities equally. ASSESSMENT: 1. Infected right thumb, status post incision and drainage. 2. Bacteremia. 3. End-stage renal disease, on hemodialysis. 4. Hypertension. 5. Type 2 diabetes mellitus. PLAN: Continue current IV antibiotics and the patient is for hemodialysis tomorrow. Follow plastic surgery and hand surgery recommendations. Alverto Brower MD
[2017-06-28] MEDS: Insulin Lispro (humaLOG) 100 Units/ml Inj SC SCH (07:56)
[2017-06-28 08:01] VITALS: BP 157/100; PULSE 77; TEMP 98.2; O2SAT 99
[2017-06-28] MEDS: Cholecalciferol 1,000 INTLU TAB PO SCH (09:52)
[2017-06-28] MEDS: Multivitamin Vitamin B Complex (Nephro-Vite) Tab PO SCH (09:53)
--- NOTE | 2017-06-28 11:33 | CP.PCM.PN ---
Subjective - Date & Time of Evaluation Date of Evaluation: 06/28/17 Time of Evaluation: 11:15 - Subjective Subjective: Patient sitting up in the chair no shortness of breath no difficulty breathing. No nausea or vomiting Vital signs stable Objective - Vital Signs/Intake and Output Vital Signs (last 24 hours): Temp Pulse Resp BP Pulse Ox 98.2 F 77 20 157/100 H 99 06/28/17 08:00 06/28/17 08:00 06/28/17 08:00 06/28/17 08:00 06/28/17 08:00 - Medications Medications: Current Medications Acetaminophen (Tylenol 325mg Tab) 650 mg PO Q4 [facility] Last Admin: 06/22/17 10:16 Dose: 650 mg Acetaminophen (Tylenol 325mg Tab) 650 mg PO Q4 PRN PRN Reason: Pain, Mild (1-3) Last Admin: 06/23/17 21:43 Dose: 650 mg Aspirin (Ecotrin) 81 mg PO DAILY [facility] Last Admin: 06/28/17 09:53 Dose: 81 mg Atorvastatin Calcium (Lipitor) 20 mg PO HS [facility] Last Admin: 06/27/17 22:10 Dose: 20 mg Calcitriol (Rocaltrol) 0.25 mcg PO DAILY [facility] Last Admin: 06/28/17 09:53 Dose: 0.25 mcg Cholecalciferol (Vitamin D) 1,000 intlu PO DAILY [facility] Last Admin: 06/28/17 09:52 Dose: 1,000 intlu Clonidine HCl (Catapres) 0.2 mg PO TID [facility] Last Admin: 06/22/17 10:17 Dose: 0.2 mg Clonidine HCl (Catapres) 0.1 mg PO BID [facility] Clopidogrel Bisulfate (Plavix) 75 mg PO DAILY [facility] Last Admin: 06/28/17 09:53 Dose: 75 mg Epoetin Alexy (Procrit) 8,000 unit IV TTS [facility] Last Admin: 06/25/17 14:10 Dose: 8,000 unit Famotidine (Pepcid) 20 mg PO DAILY [facility] Last Admin: 06/28/17 09:53 Dose: 20 mg Glipizide (Glucotrol) 10 mg PO BID [facility] Last Admin: 06/28/17 09:51 Dose: 10 mg Heparin Sodium (Porcine) (Heparin) 5,000 units SC Q8 [facility] PRN Reason: Protocol Last Admin: 06/24/17 17:13 Dose: 5,000 units Vancomycin HCl 1 gm/ Sodium (Chloride) 250 mls @ 125 mls/hr IVPB TTS [facility] PRN Reason: Protocol Last Admin: 06/25/17 19:49 Dose: 125 mls/hr Insulin Human Lispro (Humalog) 0 units SC ACHS [facility] PRN Reason: Protocol Last Admin: 06/28/17 07:56 Dose: Not Given Metoprolol Tartrate (Lopressor) 50 mg PO BID [facility] Last Admin: 06/22/17 16:41 Dose: Not Given Metoprolol Tartrate (Lopressor) 12.5 mg PO Q12 [facility] Last Admin: 06/28/17 09:51 Dose: 12.5 mg Ondansetron HCl (Zofran Inj) 4 mg IVP Q6 PRN PRN Reason: Nausea/Vomiting Ondansetron HCl (Zofran Odt) 4 mg PO Q8H PRN PRN Reason: Nausea/Vomiting Sennosides (Senokot Tab) 17.2 mg PO HS [facility] Last Admin: 06/27/17 22:10 Dose: 17.2 mg Sertraline HCl (Zoloft) 50 mg PO HS [facility] Last Admin: 06/21/17 21:35 Dose: 50 mg Sevelamer HCl (Renagel) 3,200 mg PO TID [facility] Last Admin: 06/28/17 09:50 Dose: 3,200 mg Vitamin B Complex/Vit C/Folic Acid (Nephro-Jeff) 1 tab PO DAILY [facility] Last Admin: 06/28/17 09:53 Dose: 1 tab - Labs Labs: 06/24/17 04:25 06/24/17 04:25 PT 12.3 Seconds (9.8-13.1) 06/21/17 11:02 INR 1.1 (0.9-1.2) 06/21/17 11:02 APTT 32.3 Seconds (25.6-37.1) 06/24/17 11:52 - Constitutional Appears: No Acute Distress - ENT Exam ENT Exam: Mucous Membranes Moist - Neck Exam Neck Exam: absent: Lymphadenopathy - Respiratory Exam Respiratory Exam: Rhonchi - Cardiovascular Exam Cardiovascular Exam: Irregular Rhythm. absent: JVD, Rubs - GI/Abdominal Exam GI & Abdominal Exam: Soft, Normal Bowel Sounds - Extremities Exam Extremities Exam: Pedal Edema. absent: Calf Tenderness - Back Exam Back Exam: absent: CVA tenderness (L), CVA tenderness (R) - Neurological Exam Neurological Exam: Alert - Psychiatric Exam Psychiatric exam: Normal Affect - Skin Skin Exam: absent: Cyanosis Assessment and Plan (1) End stage renal disease Assessment & Plan: MRSA sepsis ? source as hand Diabetic chronic Kidney Disease (E11.22) Hypertensive Chronic Kidney Disease (I12.0) End stage renal disease (N18.6) dependence on hemodialysis (Z99.2) (TTS) via AVF Anemia (D64.9), Hyperphosphatemia (E83.39), Secondary Hyperparathyroidism (E21.1 ), HTN (I12.0) Thrombocytopenia the plan Arrangement has been done to have dialysis as outpatient today because his dialysis and patient would not be available until late in the afternoon or evening. Patient appears to be stable. Vital signs stable Continue vancomycin as recommended by infectious disease. And dialysis TTS as outpatient. Discussed with her primary care physician and the nurse practitioner Status: Acute
--- NOTE | 2017-06-29 01:26 | DS ---
REASON FOR ADMISSION: This is a 61-year-old male with history of multiple medical problems including end-stage renal disease, on hemodialysis who was admitted for fever and bacteremia. The patient was evaluated and he had a blood culture done. COURSE OF HOSPITALIZATION: The patient was admitted to medical floor and he was evaluated and he was found to have methicillin-resistant Staphylococcus aureus bacteremia. The patient had an ID consult by Dr. Walsh and had Nephrology consult done by Dr. Rodriguez. Source of infection was on the right thumb and the patient had hand surgery consultation with incision and drainage. The patient had local wound treatment by hand surgery and he was continued on hemodialysis while he was in the hospital as ordered by Dr. Rodriguez. The patient's mental status was improved and he also had an echocardiogram done during his stay that showed ejection fraction of 25% to 30% with right ventricular systolic pressure of 44. ASSESSMENT AND PLAN: Metabolic encephalopathy, bacteremia, right hand infection, chronic congestive heart failure both systolic and diastolic with ejection fraction 25% to 30%, chronic atrial fibrillation not on any anticoagulation as he does not tolerate it before, and end-stage renal disease, on hemodialysis. Alverto Brower MD
== END 2017-06-28 12:18 | disposition home or self-care (01) | DRG 987 ==
LOC: H.ER 09:39 → H.ERHOLD 14:16 → H.MEDSURG1 16:50 → OBSVTOIN 06-22 11:13 → H.ICU/CCU 06-22 14:46 → H.MEDSURG1 06-25 11:03
PROVIDERS: ADMIT Internal Medicine; ATTEND Internal Medicine
PROC: 5A1D70Z Performance of Urinary Filtration, Intermittent, Less than 6 Hours Per Day (ICD-10-PCS; 2017-06-22)
PROC: 0L970ZZ Drainage of Right Hand Tendon, Open Approach (ICD-10-PCS; principal; 2017-06-25 07:30)
DX: G93.41 Metabolic encephalopathy (principal); N18.6 End stage renal disease; R78.81 Bacteremia; I13.2 Hypertensive heart and chronic kidney disease with heart failure and with stage 5 chronic kidney disease, or end stage renal disease; N25.81 Secondary hyperparathyroidism of renal origin; I50.42 Chronic combined systolic (congestive) and diastolic (congestive) heart failure; L03.011 Cellulitis of right finger; Z59.0 Homelessness; Z99.2 Dependence on renal dialysis; Z86.73 Personal history of transient ischemic attack (TIA), and cerebral infarction without residual deficits; D63.1 Anemia in chronic kidney disease; E11.22 Type 2 diabetes mellitus with diabetic chronic kidney disease; E78.00 Pure hypercholesterolemia, unspecified; E78.5 Hyperlipidemia, unspecified; E83.39 Other disorders of phosphorus metabolism; E11.40 Type 2 diabetes mellitus with diabetic neuropathy, unspecified; I25.10 Atherosclerotic heart disease of native coronary artery without angina pectoris; G47.30 Sleep apnea, unspecified; B95.62 Methicillin resistant Staphylococcus aureus infection as the cause of diseases classified elsewhere; Z88.3 Allergy status to other anti-infective agents; Z88.0 Allergy status to penicillin; F32.9 Major depressive disorder, single episode, unspecified; R09.02 Hypoxemia; Z89.022 Acquired absence of left finger(s); I48.2 Chronic atrial fibrillation; D69.6 Thrombocytopenia, unspecified; M65.9 Synovitis and tenosynovitis, unspecified; M54.10 Radiculopathy, site unspecified

== ENCOUNTER 2017-10-04 15:18 | Emergency (ER) | payer MEDICARE ==
[2017-10-04 15:18] VITALS: PULSE 66; BMI 28.2
[2017-10-04 15:25] VITALS: RESP 20
--- NOTE | 2017-10-04 16:36 | RAD ---
Date of service: 10/04/2017 PROCEDURE: CHEST RADIOGRAPH, 1 VIEW HISTORY: abd pain and distension COMPARISON: Chest radiograph dated 06/21/2017 FINDINGS: LUNGS: Clear. PLEURA: No pneumothorax or pleural fluid seen. CARDIOVASCULAR: Atherosclerotic aortic calcifications. Cardiomediastinal silhouette stably enlarged. OSSEOUS STRUCTURES: Unchanged. VISUALIZED UPPER ABDOMEN: Normal. OTHER FINDINGS: None. IMPRESSION: No active disease.
--- NOTE | 2017-10-04 16:37 | RAD ---
Date of service: 10/04/2017 HISTORY: abd pain/distension COMPARISON: No prior. FINDINGS: BOWEL: Diffuse gaseous distention of bowel with borderline size of small bowel loops. No free air. BONES: Prior fusion of L4-5. OTHER FINDINGS: None. IMPRESSION: Diffuse gaseous distention of bowel with borderline size of small-bowel loops. If there is clinical concern for small bowel obstruction, CT scan can be obtained for further evaluation.
[2017-10-04 16:44] LABS: VENOUS BLOOD GAS BASE EXCESS 12.7 mmol/L (0.0-2.0); VENOUS BLOOD GAS PCO2 53 mmHg (40-60); VENOUS BLOOD GAS PO2 50 mm/Hg (30-55); VENOUS BLOOD PH 7.47 (7.32-7.43)
--- NOTE | 2017-10-04 16:56 | ED PDOC ---
HPI: Abdomen Time Seen by Provider: 10/04/17 15:45 Chief Complaint (Nursing): GI Problem Chief Complaint (Provider): Constipation History Per: Patient History/Exam Limitations: no limitations Onset/Duration Of Symptoms: Days Outside of [place] travel?: No Current Symptoms Are (Timing): Still Present Location Of Pain/Discomfort: Diffuse, LUQ, LLQ Associated Symptoms: Nausea, Loss Of Appetite, Constipation. denies: Fever, Chills, Vomiting, Back Pain, Chest Pain Additional Complaint(s): 61yo male, with history of ESRD and currently on dialysis (, and Tue) , A-Fib, diabetes, sent to ER from dialysis facility due to coomplaint of constipation from last night into today with associated abdominal distention, discomfort, nausea and frequent belching. Patient was at dialysis today and had normal fluid taken off but the session ended 1.5 hours early due to patient discomfort. Patient states this morning, he had a small bowel movement and later during the day he had a small liquid stool; denies any blood per rectum. Additionally, patient states he noted drops of blood from his urethra however he does not make urine anymore; denies any penile pain. Patient states he has abdominal pain, worse on the left side and is constant. Patient states he drank large amount of soda this weekend which he normally does not do; he denies any diet changes, known sick contacts or recent travels. He also reports a loss of appetite and has not had food over the past 2 days due to that. Otherwise, denies any fever, rash, or vomiting. No other complaints. PMD: Dr. Brower Past Medical History Reviewed: Historical Data, Nursing Documentation, Vital Signs Vital Signs: Last Vital Signs Temp 97.7 F 10/04/17 19:55 Pulse 88 10/04/17 23:47 Resp 20 10/04/17 23:47 BP 138/93 H 10/04/17 23:47 Pulse Ox 98 10/04/17 23:47 - Medical History PMH: Anemia, Anxiety, Arthritis, Atrial Fibrillation, CAD, Cardia Arrhythmia, CHF, Colonic Polyps (2012), Depression, Diabetes, Fractures (Right foot surgery) , HTN, Hypercholesterolemia, Hyperlipidemia, Pneumonia, End Stage Renal Disease (with dialysis), Chronic Kidney Disease, Sleep Apnea, TIA (2010) Denies: COPD, Hypothyroidism, Rheumatoid Arthritis - Surgical History Surgical History: Endoscopy Other surgeries: fistula in left arm; lumbar spine fication; 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 - Family History Family History: States: No Known Family Hx - Social History Current smoker - smoking cessation education provided: No Alcohol: None Drugs: Denies - Immunization History Hx Tetanus Toxoid Vaccination: No Hx Influenza Vaccination: Yes (2013) Hx Pneumococcal Vaccination: Yes (2013) - Home Medications Home Medications: Ambulatory Orders Medication Instructions Recorded Metoprolol Tartrate [Lopressor] 50 mg PO BID #0 tab 04/12/15 Sertraline [Zoloft] 50 mg PO HS 08/09/16 Sevelamer Carbonate [Renvela] 3,200 mg PO TID 08/09/16 Atorvastatin [Lipitor] 20 mg PO HS 09/14/16 Clopidogrel [Plavix] 75 mg PO DAILY tab 09/23/16 Alprazolam 0.5 mg PO HS 11/03/16 Aspirin [Ecotrin] 81 mg PO DAILY 11/03/16 Calcitriol 0.25 mcg PO DAILY 11/03/16 Glipizide [Glucotrol] 10 mg PO BID 01/29/17 Insulin Glargine,Hum.rec.anlog 8 - 12 unit SQ HS 06/07/17 [Toujeo Solostar] Cholecalciferol [Vitamin D 1000 IU] 1,000 unit PO DAILY 06/21/17 Insulin Lispro [humALOG] 4 - 5 unit SC AC 06/21/17 Ketorolac Tromethamine [Acular] 1 drop RIGHTEYE TID 06/21/17 Losartan [Cozaar] 50 mg PO DAILY 06/21/17 Ofloxacin Ophth 0.3% [Ocuflox 1 drop RIGHTEYE QID 06/21/17 Ophth 0.3%] PrednisoLONE 1% [Pred Forte 1% 1 drop RIGHTEYE QID 06/21/17 Opht Susp] Ranitidine HCl [Zantac] 150 mg PO BID 06/21/17 cloNIDine [Catapres] 0.2 mg PO TID 06/21/17 oxyCODONE/Acetaminophen [Percocet 1 tab PO TTS 06/21/17 5/325 mg Tab] Epoetin Alexy [Procrit] 8,000 unit IV TTS ml 06/28/17 Vancomycin 1 GM [Vancomycin 1GM in 1 gm IVPB MWF #21 bag 06/28/17 Normal Saline Addvantage] - Allergies Allergies/Adverse Reactions: Allergies Allergy/AdvReac Type Severity Reaction Status Date / Time ciprofloxacin Allergy SWELLING Verified 06/21/17 10:25 Penicillins Allergy ANAPHYLAXIS Verified 06/21/17 10:25 propofol Allergy ANAPHYLAXIS Verified 06/21/17 10:25 vitamin K2 Allergy SHORTNESS Verified 06/21/17 10:25 OF BREATH diphenhydramine HCl AdvReac ITCHING Verified 06/21/17 10:25 [From Benadryl] surgical tape Allergy REDNESS Uncoded 06/21/17 10:25 Review of Systems ROS Statement: Except As Marked, All Systems Reviewed And Found Negative Constitutional: Negative for: Fever, Chills Cardiovascular: Negative for: Chest Pain Respiratory: Negative for: Shortness of Breath Gastrointestinal: Positive for: Nausea, Abdominal Pain, Constipation. Negative for: Vomiting, Melena, Hematochezia Genitourinary Male: Positive for: Penile Discharge (blood). Negative for: Penile Pain Physical Exam - Reviewed Nursing Documentation Reviewed: Yes Vital Signs Reviewed: Yes - Physical Exam Appears: Positive for: Non-toxic, No Acute Distress Head Exam: Positive for: ATRAUMATIC, NORMAL INSPECTION, NORMOCEPHALIC Skin: Positive for: Normal Color, Warm Eye Exam: Positive for: Normal appearance Neck: Positive for: Normal, Supple Cardiovascular/Chest: Positive for: Regular Rate, Rhythm Respiratory: Positive for: Normal Breath Sounds Gastrointestinal/Abdominal: Positive for: Soft, Tenderness (mild diffuse pain to palpation), Distended. Negative for: Guarding, Rebound Back: Positive for: Normal Inspection Extremity: Positive for: Other (palpable thrill noted to left AV fistula; patient with glove over left hand and prefers not to remove it.) Neurologic/Psych: Positive for: Alert, Oriented. Negative for: Motor/Sensory Deficits - Laboratory Results Result Diagrams: 10/04/17 16:43 10/04/17 16:43 - ECG O2 Sat by Pulse Oximetry: 99 (RA) Pulse Ox Interpretation: Normal Medical Decision Making Medical Decision Making: Impression: R/o new renal/bladder injury; constipation Plan: -- Labs -- XR Abdomen -- Consult with patient's PMD Dr. Brower -- Pepcid 20mg IVP 1707 CT Abdomen/Pelvis w/ contrast 2015 CT Abdomen/Pelvis FINDINGS: Lower thorax: Cardiomegaly Vascular calcifications including coronary artery calcifications. Mild bibasilar atelectasis. ABDOMEN: Liver: Normal. No mass. Gallbladder and bile ducts: Normal. No calcified stones. No ductal dilation. Pancreas: Normal. No ductal dilation. Spleen: Normal. No splenomegaly. Adrenals: Normal. No mass. Kidneys and ureters: Renal atrophy. Stomach and bowel: Contrast in the colon without signs of obstruction. There is moderate fecal retention. Appendix: No evidence of appendicitis. PELVIS: Bladder: Unremarkable as visualized. Reproductive: Mild prostatomegaly. ABDOMEN and PELVIS: Intraperitoneal space: Normal. No free air. No significant fluid collection. Bones/joints: Degenerative changes spine with spinal stenosis, postoperative changes with streak artifact. Soft tissues: Unremarkable. Vasculature: Diffuse vascular calcifications. Lymph nodes: Again seen is retroperitoneal lymphadenopathy. IMPRESSION: No acute findings. Periaortic lymphadenopathy again seen. Postop changes in the spine. Renal atrophy bilaterally. [address] Brower who recommends a tap-water enema. Discussed risks of enema in an ESRD patient with Dr. Brower who states water enema should be ok. Per Dr. Brower if constipation is resolved, patient can be discharged home. Scribe Attestation: Documented by Amy Marshall, acting as a scribe for Jennifer Alford MD. Provider Scribe Attestation: All medical record entries made by the Scribe were at my direction and personally dictated by me. I have reviewed the chart and agree that the record accurately reflects my personal performance of the history, physical exam, medical decision making, and the department course for this patient. I have also personally directed, reviewed, and agree with the discharge instructions and disposition. Time: 2357 -- Patient with improved pain and informed of CT lab resulted. Discussed course of additional treatment who is now refusing enema. Patient to be discharged home with prescription for pain medications and instructed to follow up with Dr. Brower tomorrow. Patient additionally instructed to follow up with Nephrology and Urology due to blood from Urethra. Scribe Attestation: Documented by Joce Camacho acting as a scribe for Jennifer Alford MD. Provider Scribe Attestation: All medical record entries made by the Scribe were at my direction and personally dictated by me. I have reviewed the chart and agree that the record accurately reflects my personal performance of the history, physical exam, medical decision making, and the department course for this patient. I have also personally directed, reviewed, and agree with the discharge instructions and disposition. Disposition - Clinical Impression Clinical Impression: Abdominal pain, Bloody urethral discharge, ESRD on hemodialysis, Flatulence - Disposition Condition: IMPROVED Additional Instructions: Follow up with Dr. Brower regarding abdominal pain and blood from your urethra. Your labs and your abdominal CT today showed no new abnormalities. Take home medications as previously prescribed and continue with dialysis as scheduled. Instructions: Gas and Bloating, Stomach Ache and Stomach Upset, Dialysis and Diet Forms: [employer] (Tajik) Print Language: BRITISH
[2017-10-04] MEDS ORDERED: Iohexol 240 (50 ml) PO STA (17:07)
[2017-10-04 17:10] LABS: BASO # 0.1 K/uL (0.0-0.2); BASO % 0.8 % (0.0-2.0); EOS # 0.2 K/uL (0.0-0.7); EOS % 2.3 % (0.0-4.0); HEMOGLOBIN 12.6 g/dL (12.0-18.0); LYMPH # 0.9 K/uL (1.0-4.3); LYMPH % 13.6 % (20.0-40.0); MEAN CELL VOLUME 92.1 fl (80.0-94.0); MEAN CORPUSCULAR HEMOGLOBIN 30.5 pg (27.0-31.0); MEAN CORPUSCULAR HGB CONC 33.1 g/dL (33.0-37.0); MEAN PLATELET VOLUME 8.8 fl (7.2-11.7); MONO # 0.6 K/uL (0.0-0.8); MONO % 8.4 % (0.0-10.0); NEUT # 5.2 K/uL (1.8-7.0); NEUT % 74.9 % (50.0-75.0); RBC 4.14 Mil/uL (4.40-5.90); RED CELL DISTRIBUTION WIDTH 15.9 % (11.5-14.5); WHITE BLOOD COUNT 6.9 K/uL (4.8-10.8)
[2017-10-04 17:15] LABS: ALBUMIN 4.6 g/dL (3.5-5.0); CALCIUM 9.5 mg/dL (8.4-10.2)
[2017-10-04] MEDS ORDERED: Iohexol 240 (50 ml) ONE (17:19)
[2017-10-04 17:24] LABS: PROTHROMBIN TIME 11.5 Seconds (9.8-13.1)
[2017-10-04] MEDS ORDERED: Morphine 4 MG/ML VIAL ONE (18:18)
[2017-10-04 19:56] VITALS: TEMP 97.7
[2017-10-04] MEDS ORDERED: Alum-Mag Hydrox-Simethicone Susp (30 mL) PO STA (21:22)
[2017-10-04 23:48] VITALS: BP 138/93; PULSE 88
[2017-10-05 00:17] VITALS: O2SAT 99
--- NOTE | 2017-10-05 10:13 | CARD ---
APPROVED REPORT Date of service: 10/04/2017 <Conclusion> Atrial fibrillation. Left axis deviation Anterior infarct, age undetermined Abnormal ECG
--- NOTE | 2017-10-05 10:17 | CARD ---
APPROVED REPORT Date of service: 10/04/2017 <Conclusion> Atrial fibrillation Left anterior fascicular block Prolonged QT Abnormal ECG
--- NOTE | 2017-10-05 12:22 | CT ---
Date of service: 10/04/2017 PROCEDURE: CT Abdomen and Pelvis without intravenous contrast HISTORY: rule out obstruction COMPARISON: 08/09/2016 TECHNIQUE: Without contrast.. Contrast dose: 0 Radiation dose: Total exam DLP = 889.34 mGy-cm. This CT exam was performed using one or more of the following dose reduction techniques: Automated exposure control, adjustment of the mA and/or kV according to patient size, and/or use of iterative reconstruction technique. FINDINGS: LOWER THORAX: Unremarkable. LIVER: Unremarkable. No gross lesion or ductal dilatation. GALLBLADDER AND BILE DUCTS: Unremarkable. PANCREAS: Pancreas is significant for 10 mm rounded low-density mass in the body of the pancreas, nonspecific. Additional questionable 12 mm low-density mass in the head of the pancreas and 1.5 cm pedunculated mass arising from the head of the pancreas. Possible IPMN, pancreatic cyst or cystic neoplasms. Consider further evaluation with multiphasic contrast enhanced CT examination. No other mass identified. No pancreatic ductal dilatation or peripancreatic fluid. SPLEEN: Splenomegaly. The spleen measures approximately 18 cm in greatest dimension. No focal mass. ADRENALS: Unremarkable. No mass. KIDNEYS AND URETERS: Atrophic kidneys with vascular calcification, possibly due to renal dialysis. Please correlate. VASCULATURE: Unremarkable. No aortic aneurysm. BOWEL: Mildly dilated small bowel loops in the left upper abdomen. No evidence of mechanical bowel obstruction. Oral contrast material is seen in the large intestine. Possible adynamic ileus. APPENDIX: Unremarkable. Normal appendix. PERITONEUM: Unremarkable. No free fluid. No free air. LYMPH NODES: Mild nonspecific retroperitoneal lymphadenopathy with few minimally enlarged nodes. No significant pelvic adenopathy. BLADDER: Nondistended REPRODUCTIVE: Normal prostate BONES: No acute fracture. Posterior fixation at L4-5. OTHER FINDINGS: None. IMPRESSION: No evidence of bowel obstruction. Multiple small low-density masses in the body and head of the pancreas as described. Limited evaluation on a noncontrast examination. Recommend further evaluation with multiphasic contrast enhanced CT examination utilizing a pancreatic protocol. Splenomegaly. Renal atrophy. Nonspecific mild retroperitoneal lymphadenopathy. The preliminary findings for this examination were reported by [facility] at 8:16 p.m. on 10/04/2017. There is discordance of this report with the preliminary findings. Findings in the pancreas were not described in the preliminary report of this examination.
== END 2017-10-04 23:47 | disposition home or self-care (01) ==
LOC: H.ER 15:18
DX: R10.9 Unspecified abdominal pain (principal); R31.9 Hematuria, unspecified; I13.2 Hypertensive heart and chronic kidney disease with heart failure and with stage 5 chronic kidney disease, or end stage renal disease; N18.6 End stage renal disease; Z99.2 Dependence on renal dialysis; Z79.4 Long term (current) use of insulin; Z86.73 Personal history of transient ischemic attack (TIA), and cerebral infarction without residual deficits; Z88.0 Allergy status to penicillin; E78.00 Pure hypercholesterolemia, unspecified
CPT/HCPCS: 71045; 74018; 74176; 80053; 82803; 82948; 83690; 85025; 85610; 85730; 93005; 96374; 96375; 96376; 99284; J2270; Q9966

== ENCOUNTER 2017-10-11 07:56 | Day surgery (SDC) | payer MEDICARE ==
[2017-10-11] MEDS ORDERED: Lidocaine 1% 20 MG/2 ML PF AMP ONE (08:21)
[2017-10-11] MEDS ORDERED: Tetracaine 0.5% Ophth 2 ML BOTTLE ONE (08:21)
[2017-10-11] MEDS ORDERED: EPINEPHrine 1 mg/ml (1:1000) Inj ONE (08:21)
[2017-10-11] MEDS ORDERED: CA CL/K CL/NA CL 500 ML IR ONE (08:22)
[2017-10-11] MEDS ORDERED: STERILE IRRIGATING SOLUTION 45 ML IR ONE (08:22)
[2017-10-11] MEDS ORDERED: Chondroitin/Hyaluronate Opth Syringe KIT (0.55 ml-0.5 ml) IO ONE (08:22)
[2017-10-11] MEDS ORDERED: Carbachol 0.01% IO ONE (08:23)
[2017-10-11] MEDS ORDERED: Povidone Iodine 5% Opht SOLUTION ONE (08:23)
[2017-10-11] MEDS ORDERED: Flurbiprofen 0.03% Opht SOLN OD ONE ×2 (09:00)
[2017-10-11] MEDS ORDERED: Phenylephrine 2.5% Opht Soln OD ONE ×2 (09:00)
[2017-10-11] MEDS ORDERED: Tropicamide 1% Opht 150 DROP/15 ML OD ONE ×2 (09:00)
[2017-10-11 09:18] LABS: CALCIUM 9.7 mg/dL (8.4-10.2)
[2017-10-11] MEDS ORDERED: Lactated Ringer's 1,000 ML IV ONE (09:30)
[2017-10-11] MEDS ORDERED: Midazolam 2 MG/2 ML VIAL ONE (11:27)
[2017-10-11] MEDS ORDERED: Povidone Iodine 5% Opht SOLUTION OD ONE (11:51)
[2017-10-11] MEDS ORDERED: Lidocaine 1% 20 MG/2 ML PF AMP EP ONE (11:52)
[2017-10-11] MEDS: Pilocarpine 1% Opht Soln ONE ×2 (11:59→12:05)
[2017-10-11] MEDS: Maxitrol Opht Susp ONE ×2 (11:59→12:05)
[2017-10-11 12:47] VITALS: RESP 18
[2017-10-11 14:05] VITALS: BP 125/94; PULSE 83; TEMP 97.5; O2SAT 98
--- NOTE | 2017-10-12 07:39 | OP ---
PROCEDURE DATE: 10/11/2017 SURGEON: GEORGIANA CERVANTES MD ANESTHESIOLOGIST: BENNIE MART MD ANESTHESIA: LOCAL / IV SEDATION PREOPERATIVE DIAGNOSIS: CATARACT RIGHT EYE. POSTOPERATIVE DIAGNOSIS: CATARACT RIGHT EYE. OPERATION: CLEAR CORNEAL PHACOEMULSIFICATION WITH LENS IMPLANT RIGHT EYE. PREPARATION AND PROCEDURE: After the patient was prepped and draped in the usual manner for sterile ophthalmic surgery, local IV sedation was administered ; eye seals were applied to the upper and lower lid margins and an adult wire lid speculum was placed within the lids. Under microsurgical control, a two- step clear corneal incision was made into the anterior chamber. The initial incision was perpendicular to the corneal plane. The second incision with the keratome was placed at a 45-degree angle to the first incision. One cc of one percent Xylocaine MPF was instilled into the anterior chamber to achieve proper intraocular anesthesia. At this time, the Viscoelastic was injected into the anterior chamber for protection of the endothelium and for maintenance of the chamber depth. A 360-degree continuous curvilinear capsulorrhexis was performed using a pre-bent 25-gauge needle. Hydrodissection and hydrodelineation were performed using a Hallman cannula and balanced salt solution. Utilizing the tip of the Hallman cannula, the nucleus was rotated freely within the capsular bag. A standard one-handed phacoemulsification was utilized at this time for sculpting and rotating of the nucleus. The nucleus was fragmented in its entirety and aspirated without any consequence. A standard I&A was carried out for the residual cortical material. No residual material was noted within the capsular bag. The posterior capsule was noted to be clear. Additional Viscoelastic was injected into the capsular bag in preparation for lens implantation. After this has been satisfactorily achieved the intraocular lens injected through the corneal incision into the capsular bag. The intraocular lens was manipulated until it was properly oriented and the Viscoelastic was evacuated from the capsular bag and anterior chamber. The anterior chamber was reformed with balanced salt solution. The corneal incision was irrigated with BSS. The intraocular pressure was found to be within normal limits. This terminated the procedure. The speculum and lid drapes were removed. TobraDex ophthalmic suspension and Pilocarpine 1% drops one drop was applied to the eye. POSTOPERATIVE CONDITION: The patient was brought to the Post anesthesia Recovery area with stable vital signs. DGEORGIANA CASH MDD
== END 2017-10-11 14:25 | disposition home or self-care (01) ==
LOC: H.OPSURG 07:56
PROVIDERS: ATTEND Ophthalmology
DX: H26.9 Unspecified cataract (principal); I12.0 Hypertensive chronic kidney disease with stage 5 chronic kidney disease or end stage renal disease; N18.6 End stage renal disease; E11.22 Type 2 diabetes mellitus with diabetic chronic kidney disease; I48.91 Unspecified atrial fibrillation; E78.5 Hyperlipidemia, unspecified; Z99.2 Dependence on renal dialysis; Z79.4 Long term (current) use of insulin
CPT/HCPCS: 36415; 66984; 80048; 82948; J0171; J2250; J7120; V2632

== ENCOUNTER 2017-12-03 16:00 | Inpatient (IN) | payer MEDICARE ==
[2017-12-03 16:02] VITALS: PULSE 66; BMI 28.2
--- NOTE | 2017-12-03 16:27 | ED PDOC ---
HPI: General Adult Time Seen by Provider: 12/03/17 16:09 Chief Complaint (Nursing): Weakness/Neurological Deficit Chief Complaint (Provider): Weakness/Neurological Deficit History Per: Patient History/Exam Limitations: no limitations Onset/Duration Of Symptoms: Days (x1) Additional Complaint(s): Patient is a 62 y/o male who presents to the ED complaining of generalized weakness. Patient finished dialysis today and was sent to the ED for generalized weakness and diarrhea for the past week. Patient reports that the diarrhea has been black but there is no gross blood nor does he have abdominal pain. Patient denies chest pain, shortness of breath, headache, paresthesia, or focal weakness. Patient was recently seen by his PMD and was given a prescription for Lomotil. PMD:Alverto Brower Past Medical History Vital Signs: Last Vital Signs Temp 97.6 F 12/03/17 16:05 Pulse 90 12/03/17 16:05 Resp 16 12/03/17 16:05 BP 128/71 12/03/17 16:05 Pulse Ox 100 12/03/17 16:05 - Medical History PMH: Anemia, Anxiety, Arthritis, Atrial Fibrillation, CAD, Cardia Arrhythmia, CHF, Colonic Polyps (2012), Depression, Diabetes, Fractures (Right foot surgery), HTN, Hypercholesterolemia, Hyperlipidemia, Pneumonia, End Stage Renal Disease (with dialysis), Chronic Kidney Disease, Sleep Apnea, TIA (2010) Denies: COPD, Hypothyroidism, Rheumatoid Arthritis - Surgical History Surgical History: Endoscopy - Family History Family History: States: Unknown Family Hx - Immunization History Hx Tetanus Toxoid Vaccination: No Hx Influenza Vaccination: Yes (2013) Hx Pneumococcal Vaccination: Yes (2013) - Home Medications Home Medications: Ambulatory Orders Medication Instructions Recorded RX: Metoprolol Tartrate [Lopressor] 50 mg PO BID #0 tab 04/12/15 RX: Sertraline [Zoloft] 50 mg PO HS 08/09/16 RX: Sevelamer Carbonate [Renvela] 3,200 mg PO TID 08/09/16 RX: Atorvastatin [Lipitor] 20 mg PO HS 09/14/16 RX: Clopidogrel [Plavix] 75 mg PO DAILY tab 09/23/16 RX: Alprazolam 0.5 mg PO HS 11/03/16 RX: Aspirin [Ecotrin] 81 mg PO DAILY 11/03/16 RX: Calcitriol 0.25 mcg PO DAILY 11/03/16 RX: Glipizide [Glucotrol] 10 mg PO BID 01/29/17 RX: Insulin Glargine,Hum.rec.anlog 8 unit SQ HS 06/07/17 [Toujeo Solostar] RX: Cholecalciferol [Vitamin D 1,000 unit PO DAILY 06/21/17 1000 IU] RX: Insulin Lispro [humALOG] 4 unit SC AC 06/21/17 RX: Ketorolac Tromethamine [Acular] 1 drop RIGHTEYE TID 06/21/17 RX: Losartan [Cozaar] 50 mg PO DAILY 06/21/17 RX: Ofloxacin Ophth 0.3% [Ocuflox 1 drop RIGHTEYE QID 06/21/17 Ophth 0.3%] RX: PrednisoLONE 1% [Pred Forte 1% 1 drop RIGHTEYE QID 06/21/17 Opht Susp] RX: Ranitidine HCl [Zantac] 150 mg PO BID 06/21/17 RX: cloNIDine [Catapres] 0.2 mg PO TID 06/21/17 RX: oxyCODONE/Acetaminophen 1 tab PO TTS 06/21/17 [Percocet 5/325 mg Tab] RX: Epoetin Alexy [Procrit] 8,000 unit IV TTS ml 06/28/17 Atropine/Diphenoxylate [Lomotil 1 tab PO BID PRN 12/03/17 0.025-2.5 mg tablet] metroNIDAZOLE [Flagyl] 500 mg PO TID 12/03/17 - Allergies Allergies/Adverse Reactions: Allergies Allergy/AdvReac Type Severity Reaction Status Date / Time ciprofloxacin Allergy SWELLING Verified 06/21/17 10:25 Penicillins Allergy ANAPHYLAXIS Verified 06/21/17 10:25 propofol Allergy ANAPHYLAXIS Verified 06/21/17 10:25 vitamin K2 Allergy SHORTNESS Verified 06/21/17 10:25 OF BREATH diphenhydramine HCl AdvReac ITCHING Verified 06/21/17 10:25 [From Benadryl] surgical tape Allergy REDNESS Uncoded 06/21/17 10:25 Review of Systems ROS Statement: Except As Marked, All Systems Reviewed And Found Negative Cardiovascular: Negative for: Chest Pain Respiratory: Negative for: Shortness of Breath Gastrointestinal: Positive for: Diarrhea, Melena. Negative for: Abdominal Pain, Hematochezia Neurological: Positive for: Weakness. Negative for: Headache, Other (Paresthesia ) Physical Exam - Reviewed Nursing Documentation Reviewed: Yes Vital Signs Reviewed: Yes - Physical Exam Appears: Positive for: Non-toxic, No Acute Distress Head Exam: Positive for: ATRAUMATIC, NORMOCEPHALIC Skin: Positive for: Normal Color, Warm, DRY Eye Exam: Positive for: EOMI, Normal appearance, PERRL Neck: Positive for: Normal, Painless ROM Cardiovascular/Chest: Positive for: Regular Rate, Rhythm. Negative for: Murmur Respiratory: Positive for: Normal Breath Sounds. Negative for: Respiratory Distress Gastrointestinal/Abdominal: Positive for: Normal Exam, Soft. Negative for: Tenderness Extremity: Positive for: Normal ROM. Negative for: Pedal Edema, Deformity Neurologic/Psych: Positive for: Alert, boarding mother II-XII (intact), Oriented, Mood/Affect (Flat), Cerebellar Tests (negative), Gait (steady). Negative for: Motor/Sensory Deficits, Aphasia, Facial Droop - Laboratory Results Result Diagrams: 12/03/17 16:35 12/03/17 16:35 - ECG Interpretation Of ECG: A fib @ 78, LAFB, prolonged QT (unchanged from 10/05/17). O2 Sat by Pulse Oximetry: 100 (RA) Pulse Ox Interpretation: Normal Medical Decision Making Medical Decision Making: Time: 1618 Impression: Generalized weakness and diarrhea Initial Plan: ABO/RH Type and screen Abd & Pelvis CT EKG CMP Troponin CBC w/ diff PTT Prothrombin time CXR UA Accession No. : [id number] Patient Name / ID : AYANA Dao / [id number] Exam Date : 12/03/2017 16:37:31 ( Approved ) Study Comment : Sex / Age : M / 62Y Creator : Walt Gallagher MD Dictator : Walt Gallagher MD Cotton Picker : Vocational Education Teacher : Walt Gallagher MD Approver2 : Report Date : 12/03/2017 17:02:23 My Comment : Date of service: 12/03/2017 HISTORY: Gen weakness COMPARISON: Chest radiograph dated 10/04/2017. FINDINGS: LUNGS: No active pulmonary disease. PLEURA: No significant pleural effusion identified, no pneumothorax apparent. CARDIOVASCULAR: Aortic atherosclerotic calcifications. Cardiomediastinal silhouette stably enlarged. OSSEOUS STRUCTURES: Unchanged. VISUALIZED UPPER ABDOMEN: Normal. OTHER FINDINGS: None. IMPRESSION: No active disease. Scribe Attestation: Documented by Deni Black acting as a scribe for Anushka Norton MD. Provider Scribe Attestation: All medical record entries made by the Scribe were at my direction and personally dictated by me. I have reviewed the chart and agree that the record accurately reflects my personal performance of the history, physical exam, medical decision making, and the department course for this patient. I have also personally directed, reviewed, and agree with the discharge instructions and disposition. Disposition - Clinical Impression Clinical Impression: Weakness, Dehydration, Diarrhea - Disposition Disposition: Transfer of Care Disposition Time: 19:00 Condition: STABLE Patient Signed Over To: Marlo Landon Handoff Comments: Pending CT.
[2017-12-03 16:56] LABS: BASO % 0.3 % (0.0-2.0); EOS # 0.1 K/uL (0.0-0.7); EOS % 2.4 % (0.0-4.0); HEMOGLOBIN 10.3 g/dL (12.0-18.0); LYMPH # 0.4 K/uL (1.0-4.3); LYMPH % 8.1 % (20.0-40.0); MEAN CELL VOLUME 94.1 fl (80.0-94.0); MEAN CORPUSCULAR HEMOGLOBIN 31.6 pg (27.0-31.0); MEAN CORPUSCULAR HGB CONC 33.6 g/dL (33.0-37.0); MEAN PLATELET VOLUME 8.6 fl (7.2-11.7); MONO # 0.5 K/uL (0.0-0.8); NEUT # 3.8 K/uL (1.8-7.0); NEUT % 79.2 % (50.0-75.0); PLATELET COUNT 99 K/uL (130-400); RBC 3.27 Mil/uL (4.40-5.90); RED CELL DISTRIBUTION WIDTH 16.4 % (11.5-14.5); WHITE BLOOD COUNT 4.8 K/uL (4.8-10.8)
[2017-12-03 17:04] LABS: INR 1.1; PROTHROMBIN TIME 12.7 Seconds (9.8-13.1)
--- NOTE | 2017-12-03 17:05 | RAD ---
Date of service: 12/03/2017 HISTORY: Gen weakness COMPARISON: Chest radiograph dated 10/04/2017. FINDINGS: LUNGS: No active pulmonary disease. PLEURA: No significant pleural effusion identified, no pneumothorax apparent. CARDIOVASCULAR: Aortic atherosclerotic calcifications. Cardiomediastinal silhouette stably enlarged. OSSEOUS STRUCTURES: Unchanged. VISUALIZED UPPER ABDOMEN: Normal. OTHER FINDINGS: None. IMPRESSION: No active disease.
[2017-12-03 17:07] LABS: ALB/GLOB RATIO 0.9 (1.0-2.1); CALCIUM 8.7 mg/dL (8.4-10.2); PARTIAL THROMBOPLASTIN TIME 33.7 Seconds (25.6-37.1)
[2017-12-03 17:18] LABS: TROPONIN I 0.049 ng/mL (0.00-0.120)
[2017-12-03 18:20] LABS: ANISOCYTOSIS SLIGHT; HYPOCHROMIC MODERATE; LYMPHOCYTE 10 % (20-50); MONOCYTE 7 % (0-10); NEUTROPHIL 83 % (42-75); OVALOCYTES SLIGHT; PLATELET ESTIMATE MARKEDLY DECREASED (NORMAL); TOTAL CELLS COUNTED 100
[2017-12-03] MEDS ORDERED: metroNIDAZOLE 500mg/100ml NS 100 ML IVPB STA (20:11)
[2017-12-03] MEDS: Sodium Chloride 0.9% 1,000 ML IV SCH (20:36)
--- NOTE | 2017-12-03 20:40 | ED PDOC ---
- Laboratory Results Result Diagrams: 12/03/17 16:35 12/03/17 16:35 - ECG O2 Sat by Pulse Oximetry: 98 (RA) Pulse Ox Interpretation: Normal Medical Decision Making Medical Decision Making: Time: 1899 --Patient signed out to this provider by Dr. Norton, pending CT. Time: 1935 CT abdomen and pelvis CLINICAL HISTORY: Body weakness and diarrhea. COMPARISON: Comparison is made with a prior study dated 10/18/2017. TECHNIQUE: Multiple axial, coronal, sagittal CT images were obtained through the abdomen and pelvis without administration of oral or IV contrast material. Total DLP equals 931.48 mGy.cm. COMMENTS: The liver is enlarged and lobulated, suggestive of a hepatocellular disease. There is no intra or extrahepatic biliary ductal dilatation. The spleen is enlarged measures 15 cm. The gallbladder is within normal limits. The pancreas is partially fatty replaced and atrophic. There is no evidence of adrenal mass. Recanalized paraumbilical vein is seen. Both kidneys are mildly atrophic and lobulated. Diffuse renal vascular calcification is seen. No evidence of renal mass, calculus, or hydronephrosis. There is no evidence for appendicitis. There is evidence of circumferential wall thickening involving descending colon, sigmoid, and rectum consistent with proctocolitis, which is a new finding since the prior study. No evidence for small or large bowel obstruction. There is no evidence of abdominal lymphadenopathy. Diffuse abdominal and pelvic ascites is present, which has progressed since the prior study. There is no evidence of intrinsic or extrinsic bladder mass. There is no pelvic lymphadenopathy. The heart is severely enlarged. Bibasilar atelectasis versus scarring is seen. Images of the lung bases show no evidence of pleural or parenchymal mass. There are no pleural effusions. Status post fusion at L4-L5. IMPRESSION: 1. Proctocolitis, new finding since the prior. 2. Cirrhosis with evidence portal hypertension. 3. Ascites has progressed since the prior study. 4. Severely enlarged heart. Case discussed with Dr. Brower who recommends admission for weakness and diarrhea, recommends flagyl IV Patient initially considered for c.diff precautions but antigen came back negative Will gently hydrate with NS 75mls/hr for dehydration/weakness Scribe Attestation: Documented by Patricia Aquino, acting as a scribe for Marlo Landon MD Provider Scribe Attestation: All medical record entries made by the Scribe were at my direction and personally dictated by me. I have reviewed the chart and agree that the record accurately reflects my personal performance of the history, physical exam, medical decision making, and the department course for this patient. I have also personally directed, reviewed, and agree with the discharge instructions and disposition. Disposition - Clinical Impression Clinical Impression: Weakness, Dehydration, Diarrhea - POA Present On Arrival: None - Disposition Disposition: Hospitalized as Observation Patient Disposition Time: 20:00 Condition: FAIR
[2017-12-03] MEDS ORDERED: metroNIDAZOLE 500mg/100ml NS 100 ML IVPB ONE (21:11)
[2017-12-04] MEDS ORDERED: Atropine-Diphenoxylate 0.025-2.5 mg Tab PO PRN ×2 (06:24→08:14)
[2017-12-04] MEDS ORDERED: Dextrose 50% SYRINGE Inj (50 ml) IVP ONE (07:05)
[2017-12-04] MEDS: Insulin Lispro (humaLOG) 100 Units/ml Inj SC SCH ×3 (07:05→21:49)
[2017-12-04] MEDS ORDERED: Dextrose 50% SYRINGE Inj (50 ml) ONE (07:06)
[2017-12-04] MEDS ORDERED: Oxycodone/Acetaminophen 5/325 mg Tab PO PRN (08:16)
[2017-12-04] MEDS ORDERED: Cholecalciferol 1,000 INTLU TAB PO SCH (09:00)
[2017-12-04] MEDS ORDERED: metroNIDAZOLE 500mg/100ml NS 50 ML IVPB SCH (09:00)
[2017-12-04] MEDS ORDERED: Ofloxacin Ophth 0.3% Soln OU SCH (09:00)
[2017-12-04] MEDS ORDERED: KETOROLAC TROMETHAMINE RIGHTEYE SCH (09:00)
[2017-12-04] MEDS ORDERED: Ciprofloxacin 200mg/100ml D5W 100 ML IVPB SCH (09:00)
[2017-12-04] MEDS ORDERED: PrednisoLONE 1% OPTH SUSP OU SCH (09:00)
--- NOTE | 2017-12-04 09:36 | CT ---
Date of service: 12/03/2017 PROCEDURE: CT Abdomen and Pelvis without intravenous contrast HISTORY: Diarrhea COMPARISON: None. TECHNIQUE: Contiguous images were obtained from the domes of the diaphragms to the upper thighs without the administration of intravenous contrast. Oral contrast was not administered. Radiation dose: Total exam DLP = 931.48 mGy-cm. This CT exam was performed using one or more of the following dose reduction techniques: Automated exposure control, adjustment of the mA and/or kV according to patient size, and/or use of iterative reconstruction technique. FINDINGS: LOWER THORAX: Cardiomegaly. Coronary arterial and valvular calcifications. Bibasilar dependent atelectasis versus scarring. LIVER: Hepatomegaly. No gross lesion or ductal dilatation. GALLBLADDER AND BILE DUCTS: Unremarkable. PANCREAS: Stable appearance of multiple pancreatic cystic structures, likely IPMN. No gross lesion or ductal dilatation. SPLEEN: Splenomegaly. ADRENALS: Unremarkable. No mass. KIDNEYS AND URETERS: Unremarkable. No hydronephrosis. No solid mass. VASCULATURE: No aortic aneurysm. Extensive aortic and arterial atherosclerotic calcifications. BOWEL: Thickening of the rectosigmoid. No obstruction. APPENDIX: Unremarkable. Normal appendix. PERITONEUM: Unremarkable. Trace perihepatic and perisplenic ascites. No free air. LYMPH NODES: Unremarkable. No enlarged lymph nodes. BLADDER: Unremarkable. REPRODUCTIVE: Unremarkable. BONES: No acute fracture. Prior posterior fusion of L4-5. OTHER FINDINGS: None. IMPRESSION: Infectious/inflammatory proctocolitis. Hepatosplenomegaly with trace perihepatic and perisplenic ascites. Additional stable findings as above.
[2017-12-04] MEDS: metroNIDAZOLE 500mg/100ml NS 250 MG in Premixed IV 1 EA IVPB SCH ×2 (09:51→10:01)
[2017-12-04] MEDS: Sodium Chloride 0.9% 1,000 ML IV SCH (09:52)
[2017-12-04] MEDS: PrednisoLONE 1% OPTH SUSP OD SCH ×3 (10:10→21:46)
[2017-12-04] MEDS: Ofloxacin Ophth 0.3% Soln OD SCH ×3 (10:10→21:43)
[2017-12-04] MEDS: Cholecalciferol 1,000 INTLU TAB PO SCH (10:11)
--- NOTE | 2017-12-04 13:57 | CARD ---
APPROVED REPORT Date of service: 12/03/2017 EKG Measurement Heart [id number] <Conclusion> Atrial fibrillation Left anterior fascicular block Abnormal ECG
--- NOTE | 2017-12-04 14:23 | CP.PCM.CON ---
<Luz Loving - Last Filed: 12/04/17 14:16> History of Present Illness - History of Present Illness History of Present Illness: GI Fellow PGY5 Consult Note This is a 61yM with PMHx ESRD on HD, AFIB, DM, CHF, CAD, HTN, HLD, SLEEP APNEA, TIA, presented to [facility] for complaints of watery diarrhea for two weeks. Pt reports he is having watery diarrhea every 30min for two weeks resulting in him missing HD session due to large volume defecation. He denies any recent travel, abx use, sick contacts or indigestion of any food. Pt denies any abdominal pain, N/V. He is also concerned since stool is dark but denies melena, hematemesis. He reports having EGD/Colonoscopy in the past put had an adverse effect of profollow and respiratory/cardiac arrest with ROSC. He has seen Dr. Scanlon in the office last year 08/2016 with plans for EGD/colonoscopy but it got canceled due to this issue. He was seen at that time for elevated LFTs. On imaging pt has cirrhosis but denies any etoh hx, alcohol or hepatitis. No hx of ascites or jaundice, does not know about dx of cirrhosis. ROS: A 12pt ROS was negative except as above. PMHx: As stated above PSH: L AVF, L hand finger amputations SHX: denies etoh, tobacco or drugs FHx: neg for colon cancer Past Patient History - Infectious Disease Hx of Infectious Diseases: None - Past Medical History & Family History Past Medical History?: Yes - Past Social History Smoking Status: Never Smoked - CARDIAC Hx Atrial Fibrillation: Yes Hx Cardia Arrhythmia: Yes Hx Congestive Heart Failure: Yes Hx Hypercholesterolemia: Yes Hx Hypertension: Yes - PULMONARY Hx Chronic Obstructive Pulmonary Disease (COPD): No Hx Pneumonia: Yes Hx Sleep Apnea: Yes - NEUROLOGICAL Hx Transient Ischemic Attacks (TIA): Yes (2010) - HEENT Hx HEENT Problems: Yes (RETINOPATHY/CATARACT) Hx Blind: Yes (b/l impaired) Hx Cataracts: Yes Other/Comment: HX: RETINOPATHY 5 YEARS AGO - RENAL Hx Chronic Kidney Disease: Yes - ENDOCRINE/METABOLIC Hx Hypothyroidism: No - HEMATOLOGICAL/ONCOLOGICAL Hx Anemia: Yes - INTEGUMENTARY Hx Dermatological Problems: Yes Other/Comment: ULCER BACK RIGHT THIGH - MUSCULOSKELETAL/RHEUMATOLOGICAL Hx Arthritis: Yes Hx Fractures: Yes (Right foot surgery) Hx Rheumatoid Arthritis: No - GASTROINTESTINAL Hx Gastrointestinal Disorders: Yes Hx Gastroesophageal Reflux: Yes Other/Comment: CONSTIPATION. ELEVATED LFTS. HEPATIC CIRRHOISIS - GENITOURINARY/GYNECOLOGICAL Hx Genitourinary Disorders: Yes Hx Prostate Problems: Yes (ENLARGED PROSTATE) Hx Urinary Tract Infection: Yes Other/Comment: PENILE CIRCUMCISION DUE TO INFECTION AUGUST 27 2016 - PSYCHIATRIC Hx Anxiety: Yes Hx Depression: Yes - SURGICAL HISTORY Hx Surgeries: Yes Hx Amputation: Yes (AMPUTATION OF LEFT HAND 1ST AND 4TH DIGIT) Hx Cataract Extraction: Yes (L eye) Hx Cardiac Catheterization: Yes Hx Eye Surgery: Yes (RETINOPATHY ) Hx Musculoskeletal Surgery: Yes (LUMBAR SPINE SX 2002) Hx Orthopedic Surgery: Yes (RUBI BREAK RIGHT FOOT 2012 SCREW AND METAL PLATES PLACED) Hx Vascular Surgery: Yes (AV FISTULA RIGHT FORE ARM) Hx Vascular Access Device: Yes (l avf) Other/Comment: PENILE CIRCUMCISION 08/27/16. LEFT HAND 1ST AND FOURTH DIGIT AMPUTATION 2015 - ANESTHESIA Hx Anesthesia: Yes Hx Anesthesia Reactions: Yes (PROPOFOL (CARDIAC ARREST)) Hx Malignant Hyperthermia: No Meds Allergies/Adverse Reactions: Allergies Allergy/AdvReac Type Severity Reaction Status Date / Time ciprofloxacin Allergy SWELLING Verified 06/21/17 10:25 Penicillins Allergy ANAPHYLAXIS Verified 06/21/17 10:25 propofol Allergy ANAPHYLAXIS Verified 06/21/17 10:25 vitamin K2 Allergy SHORTNESS Verified 06/21/17 10:25 OF BREATH diphenhydramine HCl AdvReac ITCHING Verified 06/21/17 10:25 [From Benadryl] surgical tape Allergy REDNESS Uncoded 06/21/17 10:25 - Medications Medications: Current Medications Alprazolam (Xanax) 0.5 mg PO HS [facility] Aspirin (Ecotrin) 81 mg PO DAILY [facility] Last Admin: 12/04/17 10:09 Dose: 81 mg Atorvastatin Calcium (Lipitor) 20 mg PO HS [facility] Calcitriol (Rocaltrol) 0.25 mcg PO DAILY [facility] Last Admin: 12/04/17 10:11 Dose: 0.25 mcg Cholecalciferol (Vitamin D) 1,000 intlu PO DAILY [facility] Last Admin: 12/04/17 10:11 Dose: 1,000 intlu Clonidine HCl (Catapres) 0.2 mg PO TID [facility] Last Admin: 12/04/17 13:39 Dose: 0.2 mg Clopidogrel Bisulfate (Plavix) 75 mg PO DAILY [facility] Last Admin: 12/04/17 10:10 Dose: 75 mg Diphenoxylate HCl/Atropine (Lomotil 0.025-2.5 Mg Tablet) 1 tab PO BID PRN PRN Reason: Diarrhea Epoetin Alexy (Procrit) 8,000 unit SC TTS [facility] Famotidine (Pepcid) 20 mg PO BID [facility] Last Admin: 12/04/17 10:29 Dose: 20 mg Glipizide (Glucotrol) 10 mg PO BIDAC [facility] Home Med (Insulin Glargine,Hum.Rec.Anlog [Touchidi Solkiko]) 8 unit SQ HS [facility] Home Med (Ketorolac Tromethamine [Acular]) 1 drop RIGHTEYE TID [facility] Home Med (Patient's Own Medication) 8 unit SC HS [facility] Sodium Chloride (Sodium Chloride 0.9%) 1,000 mls @ 75 mls/hr IV .[id number] [facility] Stop: 12/04/17 20:10 Last Admin: 12/04/17 09:52 Dose: Not Given Ciprofloxacin (Cipro 200mg/100ml D5w) 100 mls @ 100 mls/hr IVPB Q12 [facility]; Protocol Dextrose (Dextrose 10% In Water) 1,000 mls @ 30 mls/hr IV .Q24H [facility] Stop: 12/05/17 07:10 Last Admin: 12/04/17 07:29 Dose: 30 mls/hr Metronidazole 250 mg/ (Miscellaneous) 50 mls @ 50 mls/hr IVPB Q8 [facility]; Protocol Last Admin: 12/04/17 10:01 Dose: Not Given Insulin Human Lispro (Humalog) 0 units SC ACHS [facility]; Protocol Last Admin: 12/04/17 12:05 Dose: Not Given Losartan Potassium (Cozaar) 50 mg PO DAILY [facility] Last Admin: 12/04/17 10:08 Dose: 50 mg Metoprolol Tartrate (Lopressor) 50 mg PO BID [facility] Last Admin: 12/04/17 10:09 Dose: 50 mg Ofloxacin (Ocuflox Ophth 0.3%) 1 drop OD QID [facility] Last Admin: 12/04/17 13:33 Dose: 1 drop Oxycodone/Acetaminophen (Percocet 5/325 Mg Tab) 1 tab PO TTS PRN PRN Reason: Pain, moderate (4-7) Stop: 12/07/17 08:59 Prednisolone Acetate (Pred Forte 1% Opht Susp) 1 drop OD QID [facility] Last Admin: 12/04/17 13:32 Dose: 1 drop Sertraline HCl (Zoloft) 50 mg PO HS [facility] Sevelamer Carbonate (Renvela) 3,200 mg PO TIDWM [facility] Last Admin: 12/04/17 13:00 Dose: 3,200 mg Physical Exam - Constitutional Appears: Non-toxic, No Acute Distress - Head Exam Head Exam: ATRAUMATIC, NORMAL INSPECTION, NORMOCEPHALIC - Eye Exam Eye Exam: EOMI, PERRL Pupil Exam: PERRL - ENT Exam ENT Exam: Mucous Membranes Moist - Respiratory Exam Respiratory Exam: Clear to Auscultation Bilateral, NORMAL BREATHING PATTERN - Cardiovascular Exam Cardiovascular Exam: REGULAR RHYTHM, +S1, +S2 - GI/Abdominal Exam GI & Abdominal Exam: Normal Bowel Sounds, Soft. absent: Distended, Firm, Guarding, Organomegaly - Rectal Exam Additional comments: brown soft stool, no melena - Extremities Exam Extremities exam: Positive for: full ROM, pedal edema - Neurological Exam Neurological exam: Alert, Oriented x3 - Psychiatric Exam Psychiatric exam: Normal Affect, Normal Mood - Skin Skin Exam: Dry, Erythema, Intact, Warm Results - Vital Signs Recent Vital Signs: Last Vital Signs Temp 98.1 F 12/04/17 11:54 Pulse 63 12/04/17 13:39 Resp 20 12/04/17 11:54 BP 111/60 12/04/17 13:39 Pulse Ox 100 12/04/17 13:14 - Labs Result Diagrams: 12/03/17 16:35 12/03/17 16:35 Labs: Laboratory Results - last 24 hr 12/03/17 12/03/17 12/03/17 16:35 16:35 16:35 WBC 4.8 RBC 3.27 L Hgb 10.3 L D Hct 30.8 L MCV 94.1 H D MCH 31.6 H MCHC 33.6 RDW 16.4 H Plt Count 99 L MPV 8.6 Neut % (Auto) 79.2 H Lymph % (Auto) 8.1 L [place] % (Auto) 10.0 Eos % (Auto) 2.4 Baso % (Auto) 0.3 Neut # (Auto) 3.8 Lymph # (Auto) 0.4 L [place] # (Auto) 0.5 Eos # (Auto) 0.1 Baso # (Auto) 0.0 Neutrophils % (Manual) 83 H Lymphocytes % (Manual) 10 L Monocytes % (Manual) 7 Platelet Estimate Markedly decreased L Hypochromasia (manual) Moderate Anisocytosis (manual) Slight Ovalocytes Slight PT INR APTT Sodium 139 Potassium 3.6 Chloride 99 Carbon Dioxide 25 Anion Gap 19 BUN 56 H Creatinine 5.2 H Est GFR ( Amer) 14 Est GFR (Non-Af Amer) 11 Random Glucose 75 Calcium 8.7 Total Bilirubin 1.0 AST 14 L ALT 24 Alkaline Phosphatase 245 H Troponin I 0.0490 Total Protein 8.4 H Albumin 4.0 Globulin 4.5 H Albumin/Globulin Ratio 0.9 L Stool Occult Blood C. difficile Ag & Toxin Blood Type O POSITIVE Antibody Screen Negative BBK History Checked Patient has bt 12/03/17 12/03/17 12/03/17 16:35 17:45 20:30 WBC RBC Hgb Hct MCV MCH MCHC RDW Plt Count MPV Neut % (Auto) Lymph % (Auto) [place] % (Auto) Eos % (Auto) Baso % (Auto) Neut # (Auto) Lymph # (Auto) [place] # (Auto) Eos # (Auto) Baso # (Auto) Neutrophils % (Manual) Lymphocytes % (Manual) Monocytes % (Manual) Platelet Estimate Hypochromasia (manual) Anisocytosis (manual) Ovalocytes PT 12.7 INR 1.1 APTT 33.7 Sodium Potassium Chloride Carbon Dioxide Anion Gap BUN Creatinine Est GFR ( Amer) Est GFR (Non-Af Amer) Random Glucose Calcium Total Bilirubin AST ALT Alkaline Phosphatase Troponin I Total Protein Albumin Globulin Albumin/Globulin Ratio Stool Occult Blood Negative C. difficile Ag & Toxin Negative Blood Type Antibody Screen BBK History Checked Assessment & Plan - Assessment and Plan (Free Text) Assessment: 1. Diarrhea 2. Cirrhosis -PAUL? 3. ESRD Plan: -Continue supportive care -Pt with multiple co-morbidity -No active GI bleeding, H/H stable -CT reviewed with possible proctocolitis/ascites -Will order stool studies to r/o infectious etiology -Etiology of cirrhosis unclear, maybe from PAUL/metabolic syndrome -Order autoimmune serologies, hepatitis panel from 2017 negative -Pt will need EGD to r/o varices as an outpt -Advance diet as tolerated -Will follow closely <Navdeep Mckinney - Last Filed: 12/04/17 16:02> Meds - Medications Medications: Current Medications Alprazolam (Xanax) 0.5 mg PO HS [facility] Aspirin (Ecotrin) 81 mg PO DAILY [facility] Last Admin: 12/04/17 10:09 Dose: 81 mg Atorvastatin Calcium (Lipitor) 20 mg PO HS [facility] Calcitriol (Rocaltrol) 0.25 mcg PO DAILY [facility] Last Admin: 12/04/17 10:11 Dose: 0.25 mcg Cholecalciferol (Vitamin D) 1,000 intlu PO DAILY [facility] Last Admin: 12/04/17 10:11 Dose: 1,000 intlu Clonidine HCl (Catapres) 0.2 mg PO TID [facility] Last Admin: 12/04/17 13:39 Dose: 0.2 mg Clopidogrel Bisulfate (Plavix) 75 mg PO DAILY [facility] Last Admin: 12/04/17 10:10 Dose: 75 mg Diphenoxylate HCl/Atropine (Lomotil 0.025-2.5 Mg Tablet) 1 tab PO BID PRN PRN Reason: Diarrhea Epoetin Alexy (Procrit) 8,000 unit SC TTS [facility] Famotidine (Pepcid) 20 mg PO BID [facility] Last Admin: 12/04/17 10:29 Dose: 20 mg Glipizide (Glucotrol) 10 mg PO BIDAC [facility] Home Med (Insulin Glargine,Hum.Rec.Anlog [[place]]) 8 unit SQ HS [facility] Home Med (Ketorolac Tromethamine [Acular]) 1 drop RIGHTEYE TID [facility] Home Med (Patient's Own Medication) 8 unit SC HS [facility] Sodium Chloride (Sodium Chloride 0.9%) 1,000 mls @ 75 mls/hr IV .[id number] [facility] Stop: 12/04/17 20:10 Last Admin: 12/04/17 09:52 Dose: Not Given Ciprofloxacin (Cipro 200mg/100ml D5w) 100 mls @ 100 mls/hr IVPB Q12 [facility]; Pro tocol Dextrose (Dextrose 10% In Water) 1,000 mls @ 30 mls/hr IV .Q24H [facility] Stop: 12/05/17 07:10 Last Admin: 12/04/17 07:29 Dose: 30 mls/hr Metronidazole 250 mg/ (Miscellaneous) 50 mls @ 50 mls/hr IVPB Q8 [facility]; Protocol Last Admin: 12/04/17 10:01 Dose: Not Given Insulin Human Lispro (Humalog) 0 units SC ACHS [facility]; Protocol Last Admin: 12/04/17 12:05 Dose: Not Given Losartan Potassium (Cozaar) 50 mg PO DAILY [facility] Last Admin: 12/04/17 10:08 Dose: 50 mg Metoprolol Tartrate (Lopressor) 50 mg PO BID [facility] Last Admin: 12/04/17 10:09 Dose: 50 mg Ofloxacin (Ocuflox Ophth 0.3%) 1 drop OD QID [facility] Last Admin: 12/04/17 13:33 Dose: 1 drop Oxycodone/Acetaminophen (Percocet 5/325 Mg Tab) 1 tab PO TTS PRN PRN Reason: Pain, moderate (4-7) Stop: 12/07/17 08:59 Prednisolone Acetate (Pred Forte 1% Opht Susp) 1 drop OD QID [facility] Last Admin: 12/04/17 13:32 Dose: 1 drop Sertraline HCl (Zoloft) 50 mg PO HS [facility] Sevelamer Carbonate (Renvela) 3,200 mg PO TIDWM [facility] Last Admin: 12/04/17 13:00 Dose: 3,200 mg Results - Vital Signs Recent Vital Signs: Last Vital Signs Temp 98.1 F 12/04/17 11:54 Pulse 64 12/04/17 15:41 Resp 16 12/04/17 15:41 BP 113/74 12/04/17 15:41 Pulse Ox 100 12/04/17 15:41 - Labs Result Diagrams: 12/03/17 16:35 12/03/17 16:35 Labs: Laboratory Results - last 24 hr 12/03/17 12/03/17 12/03/17 16:35 16:35 16:35 WBC 4.8 RBC 3.27 L Hgb 10.3 L D Hct 30.8 L MCV 94.1 H D MCH 31.6 H MCHC 33.6 RDW 16.4 H Plt Count 99 L MPV 8.6 Neut % (Auto) 79.2 H Lymph % (Auto) 8.1 L [place] % (Auto) 10.0 Eos % (Auto) 2.4 Baso % (Auto) 0.3 Neut # (Auto) 3.8 Lymph # (Auto) 0.4 L [place] # (Auto) 0.5 Eos # (Auto) 0.1 Baso # (Auto) 0.0 Neutrophils % (Manual) 83 H Lymphocytes % (Manual) 10 L Monocytes % (Manual) 7 Platelet Estimate Markedly decreased L Hypochromasia (manual) Moderate Anisocytosis (manual) Slight Ovalocytes Slight PT INR APTT Sodium 139 Potassium 3.6 Chloride 99 Carbon Dioxide 25 Anion Gap 19 BUN 56 H Creatinine 5.2 H Est GFR ( Amer) 14 Est GFR (Non-Af Amer) 11 Random Glucose 75 Calcium 8.7 Total Bilirubin 1.0 AST 14 L ALT 24 Alkaline Phosphatase 245 H Troponin I 0.0490 Total Protein 8.4 H Albumin 4.0 Globulin 4.5 H Albumin/Globulin Ratio 0.9 L Stool Occult Blood C. difficile Ag & Toxin Blood Type O POSITIVE Antibody Screen Negative BBK History Checked Patient has bt 12/03/17 12/03/17 12/03/17 16:35 17:45 20:30 WBC RBC Hgb Hct MCV MCH MCHC RDW Plt Count MPV Neut % (Auto) Lymph % (Auto) [place] % (Auto) Eos % (Auto) Baso % (Auto) Neut # (Auto) Lymph # (Auto) [place] # (Auto) Eos # (Auto) Baso # (Auto) Neutrophils % (Manual) Lymphocytes % (Manual) Monocytes % (Manual) Platelet Estimate Hypochromasia (manual) Anisocytosis (manual) Ovalocytes PT 12.7 INR 1.1 APTT 33.7 Sodium Potassium Chloride Carbon Dioxide Anion Gap BUN Creatinine Est GFR ( Amer) Est GFR (Non-Af Amer) Random Glucose Calcium Total Bilirubin AST ALT Alkaline Phosphatase Troponin I Total Protein Albumin Globulin Albumin/Globulin Ratio Stool Occult Blood Negative C. difficile Ag & Toxin Negative Blood Type Antibody Screen BBK History Checked Attending/Attestation - Attestation I have personally seen and examined this patient.: Yes I have fully participated in the care of the patient.: Yes I have reviewed all pertinent clinical information: Yes Notes (Text): 12/04/17 15:44 The pt was interviewed and examined while in ED. Findings, assessment and recommendations discussed with Dr. Martinez and reflected above.
--- NOTE | 2017-12-04 20:04 | CP.PCM.CON ---
History of Present Illness - History of Present Illness History of Present Illness: RENAL: consult for ESRD HPI: 61yM with PMHx ESRD on HD tts, htn, dm, multiple episodes of infected fingers presenting w/ diarrhea. Diarrhea present x about 1 week. He missed several HD sessions last week but did go yesterday. He denies n/v/fever/chills. He states mild abdominal discomfort but no significant pain. He was given a medicine by his PCP for diarrhea yesterday but he does not know what. ROS: a full detailed ROS is negative except as above pmh: as below SHX: denies etoh, tobacco or drugs FHx: no esrd meds: as below all: as below labs and imaging reviewed pe: vs as below gen: nad sclera: anicteric op clear neck: supple, no thyromegaly lungs cta b/l abd soft, no r/g, + bs no organomegaly ext: trace edema neuro: a+ox3 follows command psych: nml affect skin: bit [place] on tips of fingers labs and imaging review imp: ESRD / diarrhea/ Anemia of Renal Disease/ Hypertensive Kidney disease/ Secondary hyperparathyroid/ Hyperphosphatemia Plan HD TTS f/u GI evaluation on renvela - check phos level continue calcitriol continue epogen resume home bp meds Past Patient History - Infectious Disease Hx of Infectious Diseases: None - Past Medical History & Family History Past Medical History?: Yes - Past Social History Smoking Status: Never Smoked - CARDIAC Hx Atrial Fibrillation: Yes Hx Cardia Arrhythmia: Yes Hx Congestive Heart Failure: Yes Hx Hypercholesterolemia: Yes Hx Hypertension: Yes - PULMONARY Hx Chronic Obstructive Pulmonary Disease (COPD): No Hx Pneumonia: Yes Hx Sleep Apnea: Yes - NEUROLOGICAL Hx Transient Ischemic Attacks (TIA): Yes (2010) - HEENT Hx HEENT Problems: Yes (RETINOPATHY/CATARACT) - RENAL Hx Chronic Kidney Disease: Yes - ENDOCRINE/METABOLIC Hx Hypothyroidism: No - HEMATOLOGICAL/ONCOLOGICAL Hx Anemia: Yes - INTEGUMENTARY Hx Dermatological Problems: Yes - MUSCULOSKELETAL/RHEUMATOLOGICAL Hx Arthritis: Yes Hx Falls: Yes Hx Fractures: Yes (Right foot surgery) Hx Rheumatoid Arthritis: No - GASTROINTESTINAL Hx Gastrointestinal Disorders: Yes Hx Gastroesophageal Reflux: Yes Other/Comment: CONSTIPATION. ELEVATED LFTS. HEPATIC CIRRHOISIS - GENITOURINARY/GYNECOLOGICAL Hx Genitourinary Disorders: Yes - PSYCHIATRIC Hx Anxiety: Yes Hx Depression: Yes Hx Substance Use: No - SURGICAL HISTORY Hx Surgeries: Yes Hx Amputation: Yes (AMPUTATION OF LEFT HAND 1ST AND 4TH DIGIT) Hx Cataract Extraction: Yes (L eye) Hx Cardiac Catheterization: Yes Hx Eye Surgery: Yes (RETINOPATHY ) Hx Musculoskeletal Surgery: Yes (LUMBAR SPINE SX 2003) Hx Orthopedic Surgery: Yes (RUBI BREAK RIGHT FOOT 2012 SCREW AND METAL PLATES PLACED) Hx Vascular Surgery: Yes (AV FISTULA RIGHT FORE ARM) Hx Vascular Access Device: Yes (l avf) Other/Comment: PENILE CIRCUMCISION 08/27/16. LEFT HAND 1ST AND FOURTH DIGIT AMPUTATION 2016 - ANESTHESIA Hx Anesthesia: Yes Hx Anesthesia Reactions: Yes (PROPOFOL (CARDIAC ARREST)) Hx Malignant Hyperthermia: No Meds Allergies/Adverse Reactions: Allergies Allergy/AdvReac Type Severity Reaction Status Date / Time ciprofloxacin Allergy SWELLING Verified 06/21/17 10:25 Penicillins Allergy ANAPHYLAXIS Verified 06/21/17 10:25 propofol Allergy ANAPHYLAXIS Verified 06/21/17 10:25 vitamin K2 Allergy SHORTNESS Verified 06/21/17 10:25 OF BREATH diphenhydramine HCl AdvReac ITCHING Verified 06/21/17 10:25 [From Benadryl] surgical tape Allergy REDNESS Uncoded 06/21/17 10:25 - Medications Medications: Current Medications Alprazolam (Xanax) 0.5 mg PO HS [facility] Aspirin (Ecotrin) 81 mg PO DAILY [facility] Last Admin: 12/04/17 10:09 Dose: 81 mg Atorvastatin Calcium (Lipitor) 20 mg PO HS [facility] Calcitriol (Rocaltrol) 0.25 mcg PO DAILY [facility] Last Admin: 12/04/17 10:11 Dose: 0.25 mcg Cholecalciferol (Vitamin D) 1,000 intlu PO DAILY [facility] Last Admin: 12/04/17 10:11 Dose: 1,000 intlu Clonidine HCl (Catapres) 0.2 mg PO TID [facility] Last Admin: 12/04/17 13:39 Dose: 0.2 mg Clopidogrel Bisulfate (Plavix) 75 mg PO DAILY [facility] Last Admin: 12/04/17 10:10 Dose: 75 mg Diphenoxylate HCl/Atropine (Lomotil 0.025-2.5 Mg Tablet) 1 tab PO BID PRN PRN Reason: Diarrhea Epoetin Alexy (Procrit) 8,000 unit SC TTS [facility] Famotidine (Pepcid) 20 mg PO BID [facility] Last Admin: 12/04/17 10:29 Dose: 20 mg Glipizide (Glucotrol) 10 mg PO BIDAC [facility] Home Med (Ketorolac Tromethamine [Acular]) 1 drop RIGHTEYE TID [facility] Home Med (Patient's Own Medication) 8 unit SC [facility] Sodium Chloride (Sodium Chloride 0.9%) 1,000 mls @ 75 mls/hr IV .[id number] [facility] Stop: 12/04/17 20:10 Last Admin: 12/04/17 09:52 Dose: Not Given Ciprofloxacin (Cipro 200mg/100ml D5w) 100 mls @ 100 mls/hr IVPB Q12 [facility]; Protocol Dextrose (Dextrose 10% In Water) 1,000 mls @ 30 mls/hr IV .Q24H [facility] Stop: 12/05/17 07:10 Last Admin: 12/04/17 07:29 Dose: 30 mls/hr Metronidazole 250 mg/ (Miscellaneous) 50 mls @ 50 mls/hr IVPB Q8 [facility]; Protocol Last Admin: 12/04/17 10:01 Dose: Not Given Insulin Detemir (Levemir) 8 units SC [facility] Insulin Human Lispro (Humalog) 0 units SC [facility]; Protocol Last Admin: 12/04/17 12:05 Dose: Not Given Losartan Potassium (Cozaar) 50 mg PO DAILY [facility] Last Admin: 12/04/17 10:08 Dose: 50 mg Metoprolol Tartrate (Lopressor) 50 mg PO BID [facility] Last Admin: 12/04/17 10:09 Dose: 50 mg Ofloxacin (Ocuflox Ophth 0.3%) 1 drop OD QID [facility] Last Admin: 12/04/17 13:33 Dose: 1 drop Oxycodone/Acetaminophen (Percocet 5/325 Mg Tab) 1 tab PO TTS PRN PRN Reason: Pain, moderate (4-7) Stop: 12/07/17 08:59 Prednisolone Acetate (Pred Forte 1% Opht Susp) 1 drop OD QID [facility] Last Admin: 12/04/17 13:32 Dose: 1 drop Sertraline HCl (Zoloft) 50 mg PO [facility] Sevelamer Carbonate (Renvela) 3,200 mg PO TIDWM [facility] Last Admin: 12/04/17 13:00 Dose: 3,200 mg Results - Vital Signs Recent Vital Signs: Last Vital Signs Temp 97.6 F 12/04/17 17:09 Pulse 64 12/04/17 17:22 Resp 18 12/04/17 17:22 BP 105/67 12/04/17 17:09 Pulse Ox 99 12/04/17 17:09 - Labs Result Diagrams: 12/03/17 16:35 12/03/17 16:35 Labs: Laboratory Results - last 24 hr 12/03/17 20:30 C. difficile Ag & Toxin Negative
[2017-12-04] MEDS: Insulin Detemir 100 Units/ml Inj SC SCH ×2 (21:47→21:49)
[2017-12-04] MEDS: [UNRECOGNIZED DRUG - OTHER] SC SCH (22:00)
[2017-12-04] MEDS: INSULIN GLARGINE SC SCH (22:00)
[2017-12-05] MEDS: metroNIDAZOLE 500mg/100ml NS 250 MG in Premixed IV 1 EA IVPB SCH ×3 (00:10→17:12)
--- NOTE | 2017-12-05 05:34 | HP ---
HISTORY OF PRESENT ILLNESS: The patient is a 62-year-old male with history of end-stage renal disease, on hemodialysis and multiple other medical problems, presented to emergency room with symptoms of generalized weakness and diarrhea that failed outpatient treatment. The patient was evaluated in the emergency room, and he had an abdomen and pelvis CAT scan that showed infectious/inflammatory proctocolitis. The patient was started on metronidazole, and he was admitted for further management. The patient was complaining also of abdominal distention and discomfort. Other review of systems is positive for bilateral lower extremity weakness, right more than left secondary to severe lumbosacral radiculopathy and severe neuropathy also with complicated type 2 diabetes mellitus. ALLERGIES: POSITIVE FOR CIPRO AND PENICILLIN. SOCIAL HISTORY: No history of smoking, EtOH, or substance abuse. FAMILY HISTORY: Noncontributory. MEDICATIONS: Medications were ordered as per [facility] and reviewed. PAST MEDICAL HISTORY: As above. PHYSICAL EXAMINATION: GENERAL AND VITAL SIGNS: The patient is in bed, not in any cardiopulmonary distress at the time of this examination with a blood pressure of 105/67, temperature 97.6, respiratory rate 20, and pulse 95. HEENT: Pupils equal and reactive to light. Normal-appearing mucosa of the conjunctivae, oropharynx and nasal membrane mucosa. NECK: Supple. No JVD. No carotid bruit. No lymph node. No thyromegaly. CHEST AND LUNGS: Bilateral symmetrical expansion. Good air exchange. No rales. No rhonchi. CARDIOVASCULAR SYSTEM: PMI not localized. S1 and S2. No additional sounds. ABDOMEN: Normoactive bowel sounds. No tenderness. No organomegaly. No masses. EXTREMITIES: No cyanosis, no clubbing. Positive multiple finger amputations secondary to infected fingers. CENTRAL NERVOUS SYSTEM: Alert, awake, oriented x2 and moves all extremities equally, but the patient has right-sided lower extremity weakness compared to the left with unsteady gait. ASSESSMENT: 1. Proctocolitis, inflammatory versus infectious. 2. End-stage renal disease, on hemodialysis. 3. Hypertension. 4. Paroxysmal atrial fibrillation. 5. Type 2 diabetes mellitus. PLAN: Continue metronidazole. GI consult: We will advance diet as tolerated. Resume the patient's home medications. Hemodialysis as per director of channel marketing order. Same MD [facility] # [id number]
[2017-12-05] MEDS: Oxycodone/Acetaminophen 5/325 mg Tab PO PRN ×2 (06:07→20:17)
[2017-12-05] MEDS: Insulin Lispro (humaLOG) 100 Units/ml Inj SC SCH ×4 (06:56→21:48)
--- NOTE | 2017-12-05 08:12 | DS ---
REFERRED BY: Dr. Brower. HISTORY OF PRESENT ILLNESS: This is a very pleasant 62-year-old gentleman who has history of multiple medical problems including diabetes mellitus, end-stage renal disease for which he is on dialysis on Tuesdays, , and Saturdays as well as peripheral vascular disease, who is referred after being admitted with about 10-day history of persistent diarrhea. The patient denied any nausea, vomiting, . He had not been febrile during this time. No abdominal pain or discomfort, but he was having multiple liquid stools each and every day for the last 10 days, today is 10 where he missed his dialysis this past Tuesday and as he was afraid to leave the home because of the diarrhea. At the time of my evaluation today in the ER, he is lying quite comfortably in bed. He is tolerating liquid diet without any symptoms, but he should have progressive loose stools. MEDICATIONS: Reviewed. He has a significant list that he added to that is IV Cipro and Flagyl, that is being given here in the hospital. ALLERGIES: HE HAS MULTIPLE ALLERGIES THAT ARE REVIEWED AND NOTED ON THE CHART INCLUDING THE ALLERGY TO CIPRO, YET HE WAS STARTED ON CIPRO, SO IT IS UNCLEAR WHETHER THAT WAS ACTUALLY NOT HELD AND INSTEAD HE WAS STARTED ON THE METRONIDAZOLE. HE IS ALSO ALLERGIC TO PENICILLINS. THEREFORE, HE IS ONLY ON THE METRONIDAZOLE. PAST MEDICAL HISTORY: As per the HPI. PAST SURGICAL HISTORY: He has had amputation of left hand digits. He has the AV grafts. FAMILY HISTORY: Noncontributory. SOCIAL HISTORY: He used to drink years ago. Denies any tobacco or drug use. PHYSICAL EXAMINATION: GENERAL: A well-developed, well-appearing gentlemen, who appears older than his stated age, who is alert and oriented x3, very pleasant, communicative. VITAL SIGNS: Stable. He is afebrile. ABDOMEN: Soft with good bowel sounds and are hyperactive. No tenderness to distention. LABORATORY DATA: His laboratories were reviewed. They were from yesterday. CBC is unremarkable. H and H 10.3 and 30.8 with a platelet count of 99,000. SMA-7 is unremarkable. BUN and creatinine are 56 and 5.2. His LFTs were essentially unremarkable expect for alk phos of 245. His stool occult blood was negative as was the C. diff antigen and toxin. CAT scan was also performed which showed proctocolitis. IMPRESSION AND PLAN: This is a 62-year-old gentleman who has been having diarrhea for 10 days. He looks comfortable and quite stable. He is afebrile. He has had no recent trauma. No recent antibiotics. His Clostridium difficile is negative. At this point in time, we will treat him empirically with metronidazole started, and we will advance his diet as tolerated since he has no other symptomatology. I will go ahead and give him a regular diet. We will continue with the metronidazole, and we will follow along with you. We will use Imodium on a p.r.n. basis as well. Ata Casas MD
--- NOTE | 2017-12-05 08:13 | CP.PCM.PN ---
<Luz Loving - Last Filed: 12/05/17 08:11> Subjective - Date & Time of Evaluation Date of Evaluation: 12/05/17 Time of Evaluation: 08:00 - Subjective Subjective: GI Fellow PGY5 Progress Note Pt seen and evaluated at bedside, pt doing well with no abdominal pain. Pt reports no further episodes of diarrhea. He had small liquid BM yesterday in the ER. No fevers, chills tolerating regular diet. ROS: A 12pt ROS was negative except as above. Objective - Vital Signs/Intake and Output Vital Signs (last 24 hours): Temp Pulse Resp BP Pulse Ox 98.1 F 70 18 111/65 98 12/05/17 05:22 12/05/17 05:22 12/05/17 05:22 12/05/17 05:22 12/05/17 05:22 - Medications Medications: Current Medications Alprazolam (Xanax) 0.5 mg PO HS [facility] Last Admin: 12/04/17 21:46 Dose: 0.5 mg Aspirin (Ecotrin) 81 mg PO DAILY [facility] Last Admin: 12/04/17 10:09 Dose: 81 mg Atorvastatin Calcium (Lipitor) 20 mg PO HS [facility] Last Admin: 12/04/17 22:00 Dose: 20 mg Calcitriol (Rocaltrol) 0.25 mcg PO DAILY [facility] Last Admin: 12/04/17 10:11 Dose: 0.25 mcg Cholecalciferol (Vitamin D) 1,000 intlu PO DAILY [facility] Last Admin: 12/04/17 10:11 Dose: 1,000 intlu Clonidine HCl (Catapres) 0.2 mg PO TID [facility] Last Admin: 12/04/17 22:30 Dose: Not Given Clopidogrel Bisulfate (Plavix) 75 mg PO DAILY [facility] Last Admin: 12/04/17 10:10 Dose: 75 mg Diphenoxylate HCl/Atropine (Lomotil 0.025-2.5 Mg Tablet) 1 tab PO BID PRN PRN Reason: Diarrhea Epoetin Alexy (Procrit) 8,000 unit SC TTS [facility] Famotidine (Pepcid) 20 mg PO BID [facility] Last Admin: 12/04/17 10:29 Dose: 20 mg Glipizide (Glucotrol) 10 mg PO BIDAC [facility] Last Admin: 12/04/17 22:30 Dose: Not Given Home Med (Ketorolac Tromethamine [Acular]) 1 drop RIGHTEYE TID [facility] Home Med (Patient's Own Medication) 8 unit SC [facility] Last Admin: 12/04/17 22:00 Dose: Not Given Ciprofloxacin (Cipro 200mg/100ml D5w) 100 mls @ 100 mls/hr IVPB Q12 [facility]; Protocol Metronidazole 250 mg/ (Miscellaneous) 50 mls @ 50 mls/hr IVPB Q8 [facility]; Protocol Last Admin: 12/05/17 00:10 Dose: 50 mls/hr Dextrose (Dextrose 10% In Water) 1,000 mls @ 30 mls/hr IV .Q24H [facility] Stop: 12/06/17 05:52 Last Admin: 12/05/17 06:01 Dose: Not Given Insulin Detemir (Levemir) 8 units SC [facility] Last Admin: 12/04/17 21:49 Dose: Not Given Insulin Human Lispro (Humalog) 0 units SC [facility]; Protocol Last Admin: 12/05/17 06:56 Dose: Not Given Losartan Potassium (Cozaar) 50 mg PO DAILY [facility] Last Admin: 12/04/17 10:08 Dose: 50 mg Metoprolol Tartrate (Lopressor) 50 mg PO BID [facility] Last Admin: 12/04/17 10:09 Dose: 50 mg Ofloxacin (Ocuflox Ophth 0.3%) 1 drop OD QID [facility] Last Admin: 12/04/17 21:43 Dose: 1 drop Oxycodone/Acetaminophen (Percocet 5/325 Mg Tab) 1 tab PO TTS PRN PRN Reason: Pain, moderate (4-7) Stop: 12/07/17 08:59 Last Admin: 12/05/17 06:07 Dose: 1 tab Prednisolone Acetate (Pred Forte 1% Opht Susp) 1 drop OD QID [facility] Last Admin: 12/04/17 21:46 Dose: 1 drop Sertraline HCl (Zoloft) 50 mg PO [facility] Last Admin: 12/04/17 21:47 Dose: 50 mg Sevelamer Carbonate (Renvela) 3,200 mg PO TIDWM [facility] Last Admin: 12/04/17 22:30 Dose: Not Given - Labs Labs: 12/03/17 16:35 12/03/17 16:35 PT 12.7 Seconds (9.8-13.1) 12/03/17 16:35 INR 1.1 12/03/17 16:35 APTT 33.7 Seconds (25.6-37.1) 12/03/17 16:35 - Constitutional Appears: Non-toxic, No Acute Distress - Head Exam Head Exam: ATRAUMATIC, NORMAL INSPECTION, NORMOCEPHALIC - Eye Exam Eye Exam: EOMI, Normal appearance, PERRL Pupil Exam: PERRL - ENT Exam ENT Exam: Mucous Membranes Moist - Neck Exam Neck Exam: Full ROM, Normal Inspection - Respiratory Exam Respiratory Exam: Clear to Ausculation Bilateral, NORMAL BREATHING PATTERN - Cardiovascular Exam Cardiovascular Exam: RRR, +S1, +S2 - GI/Abdominal Exam GI & Abdominal Exam: Soft, Normal Bowel Sounds. absent: Distended, Firm, Guarding, Tenderness, Organomegaly - Rectal Exam Rectal Exam: Deferred - Extremities Exam Extremities Exam: Pedal Edema Additional comments: multiple amputations of fingers on both hands AVF of left arm - Neurological Exam Neurological Exam: Alert, Awake, Oriented x3 - Psychiatric Exam Psychiatric exam: Normal Affect, Normal Mood - Skin Skin Exam: Dry, Intact, Normal Color, Warm Assessment and Plan - Assessment and Plan (Free Text) Assessment: 1. Diarrhea 2. Proctocolitis 3. ESRD 4. Cirrhosis -PAUL? 5. Thrombocytopenia 6. GERD Plan: -Continue supportive care -Pt with multiple co-morbidity -No active GI bleeding, H/H stable -CT reviewed with possible proctocolitis/ascites -Will order stool studies to r/o infectious etiology -Cdiff negative -Diarrhea has resolved -Can change to po abx prior to discharge for total 7 days -If continued symptoms may benefit from outpt flex sig due to adverse effect of sedation -Hold Lomotil in proctocolitis -Etiology of compensated cirrhosis unclear, maybe from PAUL/metabolic syndrome -Order autoimmune serologies, hepatitis panel from 2017 negative -Pt will need EGD to r/o varices as an outpt -Diet as tolerated -Pepcid daily for GERD like symptoms -Pt with low platelet count and on plavix, discussed with pt about getting clearance prior to any dental procedure due to risk of bleeding -From GI perspective pt okay for discharge home on po abx and to follow up with GI Dr. Scanlon. <Edvin Scanlon - Last Filed: 12/05/17 10:42> Objective - Vital Signs/Intake and Output Vital Signs (last 24 hours): Temp Pulse Resp BP Pulse Ox 97.5 F L 70 18 123/79 98 12/05/17 08:33 12/05/17 09:48 12/05/17 08:33 12/05/17 09:48 12/05/17 08:33 - Medications Medications: Current Medications Alprazolam (Xanax) 0.5 mg PO HS [facility] Last Admin: 12/04/17 21:46 Dose: 0.5 mg Aspirin (Ecotrin) 81 mg PO DAILY [facility] Last Admin: 12/05/17 09:44 Dose: Not Given Atorvastatin Calcium (Lipitor) 20 mg PO HS [facility] Last Admin: 12/04/17 22:00 Dose: 20 mg Calcitriol (Rocaltrol) 0.25 mcg PO DAILY [facility] Last Admin: 12/05/17 09:47 Dose: 0.25 mcg Cholecalciferol (Vitamin D) 1,000 intlu PO DAILY [facility] Last Admin: 12/05/17 09:45 Dose: 1,000 intlu Clonidine HCl (Catapres) 0.2 mg PO TID [facility] Last Admin: 12/05/17 09:45 Dose: 0.2 mg Clopidogrel Bisulfate (Plavix) 75 mg PO DAILY [facility] Last Admin: 12/05/17 09:46 Dose: Not Given Diphenoxylate HCl/Atropine (Lomotil 0.025-2.5 Mg Tablet) 1 tab PO BID PRN PRN Reason: Diarrhea Epoetin Alexy (Procrit) 8,000 unit SC TTS [facility] Famotidine (Pepcid) 20 mg PO BID [facility] Last Admin: 12/05/17 09:45 Dose: 20 mg Glipizide (Glucotrol) 10 mg PO BIDAC [facility] Last Admin: 12/05/17 09:44 Dose: Not Given Home Med (Ketorolac Tromethamine [Acular]) 1 drop RIGHTEYE TID [facility] Home Med (Patient's Own Medication) 8 unit SC HS [facility] Last Admin: 12/04/17 22:00 Dose: Not Given Ciprofloxacin (Cipro 200mg/100ml D5w) 100 mls @ 100 mls/hr IVPB Q12 [facility]; Protocol Metronidazole 250 mg/ (Miscellaneous) 50 mls @ 50 mls/hr IVPB Q8 [facility]; Protocol Last Admin: 12/05/17 09:44 Dose: 50 mls/hr Dextrose (Dextrose 10% In Water) 1,000 mls @ 30 mls/hr IV .Q24H [facility] Stop: 12/06/17 05:52 Last Admin: 12/05/17 06:01 Dose: Not Given Insulin Detemir (Levemir) 8 units SC [facility] Last Admin: 12/04/17 21:49 Dose: Not Given Insulin Human Lispro (Humalog) 0 units SC [facility]; Protocol Last Admin: 12/05/17 06:56 Dose: Not Given Losartan Potassium (Cozaar) 50 mg PO DAILY [facility] Last Admin: 12/05/17 09:48 Dose: 50 mg Metoprolol Tartrate (Lopressor) 50 mg PO BID [facility] Last Admin: 12/05/17 09:47 Dose: 50 mg Ofloxacin (Ocuflox Ophth 0.3%) 1 drop OD QID [facility] Last Admin: 12/05/17 09:46 Dose: 1 drop Oxycodone/Acetaminophen (Percocet 5/325 Mg Tab) 1 tab PO TTS PRN PRN Reason: Pain, moderate (4-7) Stop: 12/07/17 08:59 Last Admin: 12/05/17 06:07 Dose: 1 tab Prednisolone Acetate (Pred Forte 1% Opht Susp) 1 drop OD QID [facility] Last Admin: 12/05/17 09:46 Dose: 1 drop Sertraline HCl (Zoloft) 50 mg PO [facility] Last Admin: 12/04/17 21:47 Dose: 50 mg Sevelamer Carbonate (Renvela) 3,200 mg PO TIDWM [facility] Last Admin: 12/05/17 09:46 Dose: 3,200 mg - Labs Labs: 12/05/17 09:25 12/05/17 09:25 PT 12.7 Seconds (9.8-13.1) 12/03/17 16:35 INR 1.1 12/03/17 16:35 APTT 33.7 Seconds (25.6-37.1) 12/03/17 16:35 Attending/Attestation - Attestation I have personally seen and examined this patient.: Yes I have fully participated in the care of the patient.: Yes I have reviewed all pertinent clinical information, including history, physical exam and plan: Yes Notes (Text): 12/05/17 10:36 I have seen and examined patient with GI fellow. No acute events overnight, he is seen resting comfortably in bed. No bowel movements overnight or today thus far. He denies abdominal pain, nausea, vomiting, fever/chills. Tolerating PO diet without difficulty. Review of vitals from today are normal. Diarrhea - resolved CT imaging reviewed by me showing proctocolitis, unclear etiology ESRD on HD Atrial fibrillation Cirrhosis (compensated), possibly related to PAUL vs cardiac cause - Diet as tolerated - H/H stable, continue to monitor - Follow up stool studies and results of autoimmune serologies - Patient would benefit from additional outpatient follow up with consideration of EGD (variceal screening) and colonoscopy given abnormal CT findings. Will require medical and cardiac clearance prior to proceeding with procedure. Currently no further GI workup planned, will sign off case. Please reconsult as necessary thank you. Case discussed with Dr. Brower.
[2017-12-05] MEDS: Cholecalciferol 1,000 INTLU TAB PO SCH (09:45)
[2017-12-05] MEDS: PrednisoLONE 1% OPTH SUSP OD SCH ×4 (09:46→22:14)
[2017-12-05] MEDS: Ofloxacin Ophth 0.3% Soln OD SCH ×4 (09:46→22:16)
[2017-12-05 09:53] LABS: HEMOGLOBIN 9.8 g/dL (12.0-18.0); MEAN CELL VOLUME 96.5 fl (80.0-94.0); MEAN CORPUSCULAR HEMOGLOBIN 31.8 pg (27.0-31.0); MEAN CORPUSCULAR HGB CONC 32.9 g/dL (33.0-37.0); RBC 3.09 Mil/uL (4.40-5.90); WHITE BLOOD COUNT 4.2 K/uL (4.8-10.8)
[2017-12-05 09:59] LABS: CALCIUM 8.1 mg/dL (8.4-10.2)
--- NOTE | 2017-12-05 14:50 | CP.PCM.PN ---
Subjective - Date & Time of Evaluation Date of Evaluation: 12/05/17 Time of Evaluation: 14:49 - Subjective Subjective: RENAL consult for ESRD HPI:61yM with PMHx ESRD on HD tts, htn, dm, multiple episodes of infected fingers presenting w/ diarrhea. Diarrhea present x about 1 week. He missed several HD sessions last week but did go yesterday. He denies n/v/fever/chills. He states mild abdominal discomfort but no significant pain. He was given a medicine by his PCP for diarrhea yesterday but he does not know what. ROS: a full detailed ROS is negative except as above. loose stool better. started on Velphoro 1 month ago. pmh: as below SHX: denies etoh, tobacco or drugs FHx: no esrd meds: as below all: as below labs and imaging reviewed pe: vs as below gen: nad sclera: anicteric op clear neck: supple, no thyromegaly lungs cta b/l abd soft, no r/g, + bs no organomegaly ext: trace edema neuro: a+ox3 follows command psych: nml affect skin: bit browne on tips of fingers labs and imaging review imp: ESRD / diarrhea/ Anemia of Renal Disease/ Hypertensive Kidney disease/ Secondary hyperparathyroid/ Hyperphosphatemia/CHF/proctocolitis Plan HD TTS f/u GI evaluation on renvela : continue same continue calcitriol continue epogen resume home bp meds Objective - Vital Signs/Intake and Output Vital Signs (last 24 hours): Temp Pulse Resp BP Pulse Ox 98.9 F 77 20 124/73 98 12/05/17 13:04 12/05/17 13:04 12/05/17 13:04 12/05/17 13:04 12/05/17 13:04 - Medications Medications: Current Medications Alprazolam (Xanax) 0.5 mg PO HS [facility] Last Admin: 12/04/17 21:46 Dose: 0.5 mg Aspirin (Ecotrin) 81 mg PO DAILY [facility] Last Admin: 12/05/17 09:44 Dose: Not Given Atorvastatin Calcium (Lipitor) 20 mg PO HS [facility] Last Admin: 12/04/17 22:00 Dose: 20 mg Calcitriol (Rocaltrol) 0.25 mcg PO DAILY [facility] Last Admin: 12/05/17 09:47 Dose: 0.25 mcg Cholecalciferol (Vitamin D) 1,000 intlu PO DAILY [facility] Last Admin: 12/05/17 09:45 Dose: 1,000 intlu Clonidine HCl (Catapres) 0.2 mg PO TID [facility] Last Admin: 12/05/17 12:34 Dose: 0.2 mg Clopidogrel Bisulfate (Plavix) 75 mg PO DAILY [facility] Last Admin: 12/05/17 09:46 Dose: Not Given Diphenoxylate HCl/Atropine (Lomotil 0.025-2.5 Mg Tablet) 1 tab PO BID PRN PRN Reason: Diarrhea Epoetin Alexy (Procrit) 8,000 unit SC TTS [facility] Famotidine (Pepcid) 20 mg PO BID [facility] Last Admin: 12/05/17 09:45 Dose: 20 mg Glipizide (Glucotrol) 10 mg PO BIDAC [facility] Last Admin: 12/05/17 09:44 Dose: Not Given Home Med (Ketorolac Tromethamine [Acular]) 1 drop RIGHTEYE TID [facility] Home Med (Patient's Own Medication) 8 unit SC HS [facility] Last Admin: 12/04/17 22:00 Dose: Not Given Ciprofloxacin (Cipro 200mg/100ml D5w) 100 mls @ 100 mls/hr IVPB Q12 [facility]; Protocol Metronidazole 250 mg/ (Miscellaneous) 50 mls @ 50 mls/hr IVPB Q8 [facility]; Protocol Last Admin: 12/05/17 09:44 Dose: 50 mls/hr Dextrose (Dextrose 10% In Water) 1,000 mls @ 30 mls/hr IV .Q24H [facility] Stop: 12/06/17 05:52 Last Admin: 12/05/17 06:01 Dose: Not Given Insulin Detemir (Levemir) 8 units SC HS [facility] Last Admin: 12/04/17 21:49 Dose: Not Given Insulin Human Lispro (Humalog) 0 units SC [facility]; Protocol Last Admin: 12/05/17 12:32 Dose: Not Given Losartan Potassium (Cozaar) 50 mg PO DAILY [facility] Last Admin: 12/05/17 09:48 Dose: 50 mg Metoprolol Tartrate (Lopressor) 50 mg PO BID [facility] Last Admin: 12/05/17 09:47 Dose: 50 mg Ofloxacin (Ocuflox Ophth 0.3%) 1 drop OD QID [facility] Last Admin: 12/05/17 12:33 Dose: 1 drop Ondansetron HCl (Zofran Inj) 4 mg IVP Q6 PRN PRN Reason: Nausea/Vomiting Oxycodone/Acetaminophen (Percocet 5/325 Mg Tab) 1 tab PO TTS PRN PRN Reason: Pain, moderate (4-7) Stop: 12/07/17 08:59 Last Admin: 12/05/17 06:07 Dose: 1 tab Prednisolone Acetate (Pred Forte 1% Opht Susp) 1 drop OD QID [facility] Last Admin: 12/05/17 12:33 Dose: 1 drop Sertraline HCl (Zoloft) 50 mg PO HS [facility] Last Admin: 12/04/17 21:47 Dose: 50 mg Sevelamer Carbonate (Renvela) 3,200 mg PO TIDWM [facility] Last Admin: 12/05/17 12:33 Dose: 3,200 mg Vitamin B Complex/Vit C/Folic Acid (Nephro-Jeff) 1 tab PO DAILY [facility] - Labs Labs: 12/05/17 09:25 12/05/17 09:25 PT 12.7 Seconds (9.8-13.1) 12/03/17 16:35 INR 1.1 12/03/17 16:35 APTT 33.7 Seconds (25.6-37.1) 12/03/17 16:35
--- NOTE | 2017-12-05 16:29 | CARD ---
APPROVED REPORT Date of service: 12/05/2017 EKG Measurement Heart [id number] <Conclusion> Atrial fibrillation with slow ventricular response Inferior infarct, age undetermined Prolonged QT Abnormal ECG
--- NOTE | 2017-12-05 19:23 | PQF ---
PROVIDER RESPONSE TEXT: Combined systolic and diastolic heart failure. REVIEWER QUERY TEXT: Heart Failure Acuity and Type PMH of Congestive Heart Failure is documented in the Medical Record.by the ER and GI physicians. Ple ase document the type and acuity (includes probable or suspected)if known or unable to determine Such as: Type: -- Combined systolic and diastolic (heart failure with reduced ejection fraction and diastolic) dysfu nction -- Diastolic (HFpEF) -- Systolic (HFrEF) -- Left heart failure -- Right heart failure -- Right heart failure due to left heart failure -- High output failure -- End stage heart failure -- Other, please specify Acuity: -- Acute -- Chronic -- Acute on chronic -- Other, please specify Also please document the underlying cause of the CHF (includes probable or suspected) The patient's Clinical Indicators include: PMH: CHF ECHO from 06/22/17: EF 25-30%, global hypokinesis of the L ventricle, , LA dilated, mitral annular chula cification, MR , TR RV systolic pressure is estimated at 44 mmHg, mild pulmonary HTN. See full repo rt Medication: Cozaar, Lopressor Query created by: Carole Sheets on 12/05/2017 10:58 AM Electronically signed by: Alverto Brower MD 12/05/2017 7:20 PM
--- NOTE | 2017-12-05 19:23 | PQF ---
PROVIDER RESPONSE TEXT: Diabetes with hypoglycemia REVIEWER QUERY TEXT: Diabetic Associated Manifestations Glucose runnin, 53, 63, 96, 45, 85, 79, 63. Started on D10. Please specify any manifestations associated / due to diabetes: Glucose runnin, 53, 63, 96, 45, 85, 79, 63. Started on D10. Such as: --Diabetes with hypoglycemia -- Diabetes with hyperglycemia -- Diabetes with renal manifestation -- Diabetes with neurologic manifestation -- Diabetes with ophthalmic manifestation -- Diabetes with peripheral circulatory manifestation -- Other, please specify The patient's Clinical Indicators include: Documentation of a history of DM. Glucose runnin, 53, 63, 96, 45, 85, 79, 63. Started on D10. Accuchecks monitored Query created by: Carole Sheets on 12/05/2017 10:52 AM Electronically signed by: Alverto Brower MD 12/05/2017 7:20 PM
[2017-12-05] MEDS: Insulin Detemir 100 Units/ml Inj SC SCH (22:13)
[2017-12-05] MEDS: [UNRECOGNIZED DRUG - OTHER] SC SCH (22:17)
[2017-12-05] MEDS: INSULIN GLARGINE SC SCH (22:17)
[2017-12-06] MEDS: metroNIDAZOLE 500mg/100ml NS 250 MG in Premixed IV 1 EA IVPB SCH ×3 (00:20→16:47)
--- NOTE | 2017-12-06 01:02 | PN ---
DATE: 12/05/2017 SUBJECTIVE: The patient is seen today, 12/05/2017. He is not in any cardiopulmonary distress. The patient feels dizzy, and at telemetry, heart rate was as low as 30s and 40s. PHYSICAL EXAMINATION: VITAL SIGNS: Blood pressure 143/68, temperature 98.3, respiratory rate 20. HEENT: Slightly pale mucosa of conjunctivae. NECK: Supple. No JVD. No carotid bruits. No lymph node. No thyromegaly. CHEST AND LUNGS: Bilateral symmetrical expansion. Good air exchange. No rales. No rhonchi. CARDIOVASCULAR SYSTEM: PMI not localized. S1 and S2. No additional sounds. ABDOMEN: Normoactive bowel sounds. No tenderness. No organomegaly. No masses. EXTREMITIES: No cyanosis. No clubbing. No edema. INSOLE TAPER: Alert, awake, and oriented x2. The patient has bilateral lower extremity weakness and dizziness and dysfunctional gait. ASSESSMENT: 1. Proctocolitis which is resolving. 2. Symptomatic bradycardia. 3. 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 4. Type 2 diabetes mellitus with hypoglycemia. PLAN: We will stop metoprolol; cardiology consult and further recommendation; and we will decrease the glipizide to 5 mg and discontinue the 10 mg. Alverto Brower MD
[2017-12-06] MEDS: Oxycodone/Acetaminophen 5/325 mg Tab PO PRN (03:36)
[2017-12-06 04:42] LABS: CERULOPLASMIN 28 mg/dL (18-36)
[2017-12-06] MEDS: Insulin Lispro (humaLOG) 100 Units/ml Inj SC SCH ×4 (06:42→21:57)
[2017-12-06] MEDS: Ofloxacin Ophth 0.3% Soln OD SCH ×4 (08:47→22:14)
[2017-12-06] MEDS: Cholecalciferol 1,000 INTLU TAB PO SCH (08:47)
[2017-12-06] MEDS: Multivitamin Vitamin B Complex (Nephro-Vite) Tab PO SCH (08:47)
[2017-12-06] MEDS: PrednisoLONE 1% OPTH SUSP OD SCH ×4 (08:48→22:01)
[2017-12-06] MEDS ORDERED: Epoetin Alfa 20000 UNIT/ML (RENAL DOSE) IV SCH (09:00)
[2017-12-06] MEDS ORDERED: Oxycodone/Acetaminophen 5/325 mg Tab PO SCH (09:00)
[2017-12-06] MEDS: Epoetin Alfa 20000 UNIT/ML Inj SC SCH (09:07)
[2017-12-06 11:06] LABS: HEMOGLOBIN 9.9 g/dL (12.0-18.0); MEAN CELL VOLUME 97.1 fl (80.0-94.0); MEAN CORPUSCULAR HEMOGLOBIN 31.7 pg (27.0-31.0); MEAN CORPUSCULAR HGB CONC 32.6 g/dL (33.0-37.0); RBC 3.14 Mil/uL (4.40-5.90); RED CELL DISTRIBUTION WIDTH 16.7 % (11.5-14.5); WHITE BLOOD COUNT 4.8 K/uL (4.8-10.8)
[2017-12-06 12:15] LABS: CALCIUM 8.2 mg/dL (8.4-10.2)
--- NOTE | 2017-12-06 17:50 | CP.PCM.PN ---
Subjective - Date & Time of Evaluation Date of Evaluation: 12/06/17 Time of Evaluation: 17:49 - Subjective Subjective: RENAL consult for ESRD seen and examined on hd labs and imaging reviewed pe: vs as below gen: nad sclera: anicteric op clear neck: supple, no thyromegaly lungs cta b/l abd soft, no r/g, + bs no organomegaly ext: trace edema neuro: a+ox3 follows command psych: nml affect skin: bit browne on tips of fingers imp: ESRD / diarrhea/ Anemia of Renal Disease/ Hypertensive Kidney disease/ Secondary hyperparathyroid/ Hyperphosphatemia/CHF/proctocolitis Plan HD TTS, seen on hd tolerating well f/u GI evaluation on renvela : continue same continue calcitriol continue epogen continue home bp meds Objective - Vital Signs/Intake and Output Vital Signs (last 24 hours): Temp Pulse Resp BP Pulse Ox 97 F L 61 16 120/80 100 12/06/17 16:23 12/06/17 16:23 12/06/17 16:23 12/06/17 16:23 12/06/17 16:23 - Medications Medications: Current Medications Alprazolam (Xanax) 0.5 mg PO HS [facility] Last Admin: 12/05/17 22:08 Dose: 0.5 mg Aspirin (Ecotrin) 81 mg PO DAILY [facility] Last Admin: 12/06/17 08:47 Dose: 81 mg Atorvastatin Calcium (Lipitor) 20 mg PO HS [facility] Last Admin: 12/05/17 22:08 Dose: 20 mg Calcitriol (Rocaltrol) 0.25 mcg PO DAILY [facility] Last Admin: 12/06/17 08:47 Dose: 0.25 mcg Cholecalciferol (Vitamin D) 1,000 intlu PO DAILY [facility] Last Admin: 12/06/17 08:47 Dose: 1,000 intlu Clonidine HCl (Catapres) 0.2 mg PO TID [facility] Last Admin: 12/06/17 12:11 Dose: Not Given Clopidogrel Bisulfate (Plavix) 75 mg PO DAILY [facility] Last Admin: 12/05/17 09:46 Dose: Not Given Diphenoxylate HCl/Atropine (Lomotil 0.025-2.5 Mg Tablet) 1 tab PO BID PRN PRN Reason: Diarrhea Epoetin Alexy (Procrit) 8,000 unit SC TTS [facility] Famotidine (Pepcid) 20 mg PO BID [facility] Last Admin: 12/06/17 16:48 Dose: 20 mg Glipizide (Glucotrol) 10 mg PO BIDAC [facility] Last Admin: 12/06/17 16:47 Dose: 10 mg Home Med (Patient's Own Medication) 8 unit SC HS [facility] Last Admin: 12/05/17 22:17 Dose: Not Given Ciprofloxacin (Cipro 200mg/100ml D5w) 100 mls @ 100 mls/hr IVPB Q12 [facility]; Protocol Metronidazole 250 mg/ (Miscellaneous) 50 mls @ 50 mls/hr IVPB Q8 [facility]; Protocol Last Admin: 12/06/17 16:47 Dose: 50 mls/hr Insulin Detemir (Levemir) 8 units SC [facility] Last Admin: 12/05/17 22:13 Dose: Not Given Insulin Human Lispro (Humalog) 0 units SC ACHS [facility]; Protocol Last Admin: 12/06/17 16:48 Dose: Not Given Losartan Potassium (Cozaar) 50 mg PO DAILY [facility] Last Admin: 12/06/17 08:50 Dose: Not Given Metoprolol Tartrate (Lopressor) 50 mg PO BID [facility] Last Admin: 12/05/17 17:20 Dose: Not Given Ofloxacin (Ocuflox Ophth 0.3%) 1 drop OD QID [facility] Last Admin: 12/06/17 16:47 Dose: 1 drop Ondansetron HCl (Zofran Inj) 4 mg IVP Q6 PRN PRN Reason: Nausea/Vomiting Last Admin: 12/05/17 15:01 Dose: 4 mg Oxycodone/Acetaminophen (Percocet 5/325 Mg Tab) 1 tab PO TTS PRN PRN Reason: Pain, moderate (4-7) Stop: 12/07/17 08:59 Last Admin: 12/06/17 03:36 Dose: 1 tab Prednisolone Acetate (Pred Forte 1% Opht Susp) 1 drop OD QID [facility] Last Admin: 12/06/17 16:47 Dose: 1 drop Sertraline HCl (Zoloft) 50 mg PO [facility] Last Admin: 12/05/17 22:08 Dose: 50 mg Sevelamer Carbonate (Renvela) 3,200 mg PO TIDWM [facility] Last Admin: 12/06/17 16:46 Dose: 3,200 mg Vitamin B Complex/Vit C/Folic Acid (Nephro-Jeff) 1 tab PO DAILY [facility] Last Admin: 12/06/17 08:47 Dose: 1 tab - Labs Labs: 12/06/17 10:32 12/06/17 10:32 PT 12.7 Seconds (9.8-13.1) 12/03/17 16:35 INR 1.1 12/03/17 16:35 APTT 33.7 Seconds (25.6-37.1) 12/03/17 16:35
[2017-12-06] MEDS: Insulin Detemir 100 Units/ml Inj SC SCH (22:04)
[2017-12-06] MEDS: INSULIN GLARGINE SC SCH (22:14)
[2017-12-06] MEDS: [UNRECOGNIZED DRUG - OTHER] SC SCH (22:14)
--- NOTE | 2017-12-06 23:45 | PN ---
DATE: 12/06/2017 SUBJECTIVE: The patient is seen today, 12/06/2017. PHYSICAL EXAMINATION: GENERAL: He is not in any cardiopulmonary distress. VITAL SIGNS: Blood pressure 120/80, temperature 97, respiratory rate 16, and pulse 61. HEENT: Slightly pale mucosa of the conjunctivae. NECK: Supple. No JVD. No carotid bruit. No lymph node. No thyromegaly. CHEST AND LUNGS: Bilateral symmetrical expansion. Good air exchange. No rales, no rhonchi. CARDIOVASCULAR SYSTEM: PMI not localized. S1, S2. No additional sounds. ABDOMEN: Normoactive bowel sounds. No tenderness. No organomegaly. No masses. EXTREMITIES: No cyanosis, no clubbing, no edema. CENTRAL NERVOUS SYSTEM: Alert, awake, oriented x2. The patient has bilateral lower extremity weakness, right more than left due to radiculopathy. ASSESSMENT: 1. Proctocolitis, which is resolving. 2. Progressive peripheral neuropathy as well as radiculopathy with frequent falls and inability to ambulate. 3. End-stage renal disease, on hemodialysis. 4. Type 2 diabetes mellitus. 5. Paroxysmal atrial fibrillation. PLAN: Continue physical therapy. The patient is for discharge to rehabilitation for deconditioning and physical therapy. Alverto Brower MD
[2017-12-07] MEDS: metroNIDAZOLE 500mg/100ml NS 250 MG in Premixed IV 1 EA IVPB SCH ×3 (00:30→17:54)
--- NOTE | 2017-12-07 02:57 | CON ---
DATE: 12/06/2017 CARDIOLOGY CONSULTATION REASON FOR CONSULTATION: Slow atrial fibrillation and cardiomyopathy. HISTORY OF PRESENT ILLNESS: The patient is 62-year-old male who has a history of end-stage renal disease, on hemodialysis for the past 10 years; history of chronic atrial fibrillation; presented because of generalized weakness as well as diarrhea. The patient is seeing Dr. Paige, his transportation associate, but does not recall having any coronary intervention in the past, and he denies any chest pain. The patient denies any shortness of breath, any recent dizziness or syncope. The patient was noted to have slow atrial fibrillation on the monitor, and reportedly beta-nury therapy was discontinued and clonidine was withheld. SOCIAL HISTORY: The patient is a nonsmoker and nondrinker. He lives with his . PAST MEDICAL HISTORY: Hypertension; diabetes mellitus; end-stage renal disease, on hemodialysis; chronic atrial fibrillation; history of amputation of the left fifth finger as well as distal phalanges of the left fingers mainly related to the patient's obsessive behavior of biting his nails with subsequent infection and osteomyelitis. REVIEW OF SYSTEMS: The patient is experiencing toothache and was advised by his primary physician to go for a tooth extraction, but has not seen his dentist yet. MEDICATIONS: Clonidine 0.2 mg t.i.d., ciprofloxacin 200 mg intravenously every 12 hours, Cozaar 50 mg once a day, aspirin 81 mg once a day, glipizide 10 mg twice a day, Lipitor 20 mg once a day, Flagyl 250 mg intravenously every 8 hours, Lopressor 50 mg twice a day, Plavix 75 mg once a day, Rocaltrol 0.25 mcg daily, Xanax 0.5 mg every bedtime, Zoloft 50 mg every bedtime, Zofran 4 mg intravenously every 6 hours p.r.n. PHYSICAL EXAMINATION: GENERAL: The patient is a middle-aged male who does not appear to be in acute distress. VITAL SIGNS: Blood pressure 168/78, heart rate 73, temperature 97.5, respirations 20. HEENT: Normocephalic. NECK: No JVD. CHEST: Minimal basilar rhonchi. HEART: S1 and S2 are regular. ABDOMEN: Soft. EXTREMITIES: Trace leg edema. LABORATORY DATA: Today's SMA-7: Sodium 133, potassium 5.4, chloride 96, CO2 of 20, glucose 167, BUN 91, creatinine 8.8 that was done prior to initiation of hemodialysis. Today's hemoglobin and hematocrit 9.9 and 30.5, white count 4.8, platelet count 109,000. INR is 1.1. On admission, one set of troponin was 0.049. Chest x-ray revealed cardiomegaly, no infiltrate. Abdomen and pelvis CT scan revealed infectious/inflammatory proctocolitis, hepatosplenomegaly with trace perihepatic and perisplenic ascites. Echocardiographic study performed in 06/2017 revealed ejection fraction in the range of 25% to 30% with global hypokinesis and moderate dilated left atrium and mild pulmonary hypertension. EKG on admission revealed atrial fibrillation at the rate of 78 with left anterior vesicular block. ASSESSMENT: 1. Chronic atrial fibrillation. 2. Cardiomyopathy. 3. End-stage renal disease, on hemodialysis. 4. Mild thrombocytopenia. 5. Proctocolitis. 6. Mild anemia. RECOMMENDATIONS: Keep both Lopressor and clonidine on hold. Continue Cozaar 50 mg once a day, aspirin 81 mg once a day, Lipitor 20 mg once a day. Continue IV Flagyl. Obtain followup echocardiographic study as well as electrophysiology consult by Dr. Lopez for possible ICD or LifeVest placement. In the meantime, obtain TSH level. Rylan Sauceda MD
[2017-12-07] MEDS: Oxycodone/Acetaminophen 5/325 mg Tab PO PRN (06:00)
[2017-12-07] MEDS: Insulin Lispro (humaLOG) 100 Units/ml Inj SC SCH ×4 (06:40→22:04)
[2017-12-07] MEDS: Ofloxacin Ophth 0.3% Soln OD SCH ×3 (09:20→22:07)
[2017-12-07] MEDS: PrednisoLONE 1% OPTH SUSP OD SCH ×3 (09:20→23:48)
[2017-12-07] MEDS: Cholecalciferol 1,000 INTLU TAB PO SCH (09:20)
[2017-12-07] MEDS: Multivitamin Vitamin B Complex (Nephro-Vite) Tab PO SCH (09:20)
--- NOTE | 2017-12-07 12:27 | CARD ---
APPROVED REPORT Date of service: 12/07/2017 EXAM: Two-dimensional and M-mode echocardiogram with Doppler and color Doppler. Other Information Quality : GoodRhythm : Atrial Fibrillation INDICATION Atrial Fibrillation Congestive Heart Failure 2D DIMENSIONS IVSd1.40 (0.7-1.1cm)LVDd4.73 (3.9-5.9cm) LVOT Diameter2.15 (1.8-2.4cm)PWd1.96 (0.7-1.1cm) IVSs1.42 (0.8-1.2cm)LVDs4.26 (2.5-4.0cm) FS (%) 9.9 %PWs2.00 (0.8-1.2cm) M-Mode DIMENSIONS Left Atrium (MM)5.46 (2.5-4.0cm)IVSd1.65 (0.7-1.1cm) Aortic Root3.38 (2.2-3.7cm)LVDd5.19 (4.0-5.6cm) Aortic Cusp Exc.2.05 (1.5-2.0cm)PWd1.36 (0.7-1.1cm) IVSs1.75 cmFS (%) 15 % LVDs4.43 (2.0-3.8cm)PWs1.75 cm Mitral Valve E/A ratio0.0 TDI E/Lateral E'0.0E/Medial E'0.0 Tricuspid Valve TR Peak [id number] [id number] Peak Gr.55mmHg [id number] LEFT VENTRICLE The left ventricle is normal size. There is mild concentric left ventricular hypertrophy. The systolic function is severely impaired. The estimated ejection fraction is 25-30% There is global hypokinesis of the left ventricle. The left ventricular diastolic function cannot be assessed due to underlying atrial fibrillation No left ventricle thrombus noted on this study. There is no ventricular septal defect visualized. There is no left ventricular aneurysm. There is no mass noted in the left ventricle. RIGHT VENTRICLE The right ventricle is normal size. There is normal right ventricular wall thickness. The right ventricular systolic function is normal. ATRIA The left atrium is severely dilated. The right atrium size is normal. The interatrial septum is intact with no evidence for an atrial septal defect. AORTIC VALVE The aortic valve is normal in structure. No aortic regurgitation is present. There is no aortic valvular stenosis. There is no aortic valvular vegetation. MITRAL VALVE The mitral valve is normal in structure. There is no evidence of mitral valve prolapse. There is no mitral valve stenosis. There is mild mitral valve regurgitation noted. TRICUSPID VALVE The tricuspid valve is normal in structure. There is severe tricuspid valve regurgitation noted. RVSP is calculated at 70 mm Hg and correlates to moderate to severe pulmonary hypertension. There is no tricuspid valve prolapse or vegetation. There is no tricuspid valve stenosis. PULMONIC VALVE The pulmonary valve is normal in structure. There is no pulmonic valvular regurgitation. There is no pulmonic valvular stenosis. GREAT VESSELS The aortic root is normal in size. The ascending aorta is normal in size. The pulmonary artery is normal. The IVC is dilated in size. PERICARDIAL EFFUSION There is no pericardial effusion. There is no pleural effusion. <Conclusion> There is mild concentric left ventricular hypertrophy. The systolic function is severely impaired. The estimated ejection fraction is 25-30% The left ventricular diastolic function cannot be assessed due to underlying atrial fibrillation The left atrium is severely dilated. There is mild mitral valve regurgitation noted. There is severe tricuspid valve regurgitation noted. RVSP is calculated at 70 mm Hg and correlates to moderate to severe pulmonary hypertension. The IVC is dilated in size.
--- NOTE | 2017-12-07 20:59 | PN ---
DATE: 12/07/2017 SUBJECTIVE: The patient still complains of weakness. He denies retrosternal chest pain. He stated that he underwent cardiac catheterization many years ago and was told about some 60% to 70% blockage but intervention. PHYSICAL EXAMINATION VITAL SIGNS: Blood pressure 151/89, heart rate 76, temperature 97.6, respirations 18. HEENT: Normocephalic. CHEST: Minimal wheeze, rhonchi. Heart: S1 and S2, regular. ABDOMEN: Soft. EXTREMITIES: There is 2+ pitting edema. LABORATORY DATA: Today's blood sugars are respectively. ASSESSMENT: 1. Cardiomyopathy. 2. End-stage renal disease, on hemodialysis. 3. Peripheral neuropathy. 4. Proctocolitis. 5. Mild thrombocytopenia and mild anemia. RECOMMENDATIONS: Continue clonidine 0.2 mg daily, IV Cipro 200 mg every 12 hours, Cozaar 50 mg once a day, aspirin 81 mg once a day, glipizide 10 mg twice a day, Lipitor 20 mg once a day, Flagyl 250 mg intravenously every 8 hours. Cardiac catheterization was presented to the patient who agreed for the procedure, and the case will be discussed with Dr. Brower prior to transferring the patient for the procedure to have medical clearance. Rylan Sauceda MD
[2017-12-07] MEDS: Insulin Detemir 100 Units/ml Inj SC SCH (22:05)
[2017-12-07] MEDS: [UNRECOGNIZED DRUG - OTHER] SC SCH (22:22)
[2017-12-07] MEDS: INSULIN GLARGINE SC SCH (22:22)
[2017-12-08] MEDS: metroNIDAZOLE 500mg/100ml NS 250 MG in Premixed IV 1 EA IVPB SCH ×3 (00:45→17:42)
[2017-12-08 05:48] LABS: HEMOGLOBIN 10.1 g/dL (12.0-18.0); MEAN CELL VOLUME 98.1 fl (80.0-94.0); MEAN CORPUSCULAR HEMOGLOBIN 31.5 pg (27.0-31.0); MEAN CORPUSCULAR HGB CONC 32.1 g/dL (33.0-37.0); RBC 3.21 Mil/uL (4.40-5.90); RED CELL DISTRIBUTION WIDTH 16.8 % (11.5-14.5); WHITE BLOOD COUNT 4.9 K/uL (4.8-10.8)
[2017-12-08 06:07] LABS: CALCIUM 8.5 mg/dL (8.4-10.2)
[2017-12-08] MEDS: Insulin Lispro (humaLOG) 100 Units/ml Inj SC SCH ×4 (06:43→22:05)
[2017-12-08] MEDS: Multivitamin Vitamin B Complex (Nephro-Vite) Tab PO SCH (08:58)
[2017-12-08] MEDS: Cholecalciferol 1,000 INTLU TAB PO SCH (08:58)
[2017-12-08] MEDS: Ofloxacin Ophth 0.3% Soln OD SCH ×3 (08:58→17:43)
[2017-12-08] MEDS: PrednisoLONE 1% OPTH SUSP OD SCH ×3 (09:01→17:43)
--- NOTE | 2017-12-08 11:43 | CP.PCM.PCO ---
Assessment & Plan - Assessment and Plan (Free Text) Assessment: pt. w/ c/o mild dizziness and weakness HR 40-60 in Afib this morning pt. was seen by and plan is for possible AICD once pt. medically optimized after Cardiac Cath Cardiac cath scheduled for Tuesday with
[2017-12-08] MEDS: Epoetin Alfa 20000 UNIT/ML Inj SC SCH (13:10)
--- NOTE | 2017-12-08 13:52 | PN ---
DATE: 12/07/2017 SUBJECTIVE: The patient was seen on 12/07/2017. He was feeling dizzy and has exertional shortness of breath. PHYSICAL EXAMINATION: VITAL SIGNS: Blood pressure 151/89, temperature 97.6, respiratory rate 18, and pulse 76. HEENT: Slightly pale mucosa of the conjunctivae. NECK: Supple. No JVD. No carotid bruits. No lymph node. No thyromegaly. CHEST AND LUNGS: Bilateral symmetrical expansion. Bilateral basal rales. CARDIOVASCULAR SYSTEM: PMI not localized. S1 and S2. No additional sounds. Irregularly irregular. ABDOMEN: Normoactive bowel sounds. No tenderness. No organomegaly. No masses. EXTREMITIES: No cyanosis. No clubbing. No edema. There are bilateral finger amputations secondary to previous osteomyelitis of the hands. CENTRAL NERVOUS SYSTEMS: Alert, awake, oriented x2 and the patient has bilateral lower extremity weakness, right more than left. ASSESSMENT: 1. Proctocolitis. 2. Acute on chronic systolic and diastolic heart failure. 3. Pulmonary hypertension. 4. End-stage renal disease, on hemodialysis. 5. Atrial fibrillation. PLAN: Continue current medications and we will give the patient Voltaren gel due to the temporomandibular joint arthritis. We will discuss with Dr. Sauceda regarding further cardiology suggestions. Alverto Brower MD
--- NOTE | 2017-12-08 14:35 | CP.PCM.PN ---
Subjective - Date & Time of Evaluation Date of Evaluation: 12/08/17 Time of Evaluation: 14:34 - Subjective Subjective: RENAL consult for ESRD seen and examined on hd labs and imaging reviewed pe: seen during HD vs as below gen: nad sclera: anicteric op clear neck: supple, no thyromegaly lungs cta b/l abd soft, no r/g, + bs no organomegaly ext: trace edema neuro: a+ox3 follows command psych: nml affect skin: bit browne on tips of fingers imp: ESRD / diarrhea/ Anemia of Renal Disease/ Hypertensive Kidney disease/ Secondary hyperparathyroid/ Hyperphosphatemia/CHF/proctocolitis/sev pHTN Plan HD TTS, seen on hd tolerating well f/u GI evaluation on renvela : continue same continue calcitriol continue epogen continue home bp meds Objective - Vital Signs/Intake and Output Vital Signs (last 24 hours): Temp Pulse Resp BP Pulse Ox 97.9 F 58 L 20 131/81 96 12/08/17 12:27 12/08/17 12:27 12/08/17 12:27 12/08/17 12:27 12/08/17 12:27 - Medications Medications: Current Medications Alprazolam (Xanax) 0.5 mg PO HS [facility] Last Admin: 12/07/17 22:20 Dose: 0.5 mg Aspirin (Ecotrin) 81 mg PO DAILY [facility] Last Admin: 12/08/17 09:00 Dose: 81 mg Atorvastatin Calcium (Lipitor) 20 mg PO HS [facility] Last Admin: 12/07/17 22:06 Dose: 20 mg Calcitriol (Rocaltrol) 0.25 mcg PO DAILY [facility] Last Admin: 12/08/17 08:59 Dose: 0.25 mcg Cholecalciferol (Vitamin D) 1,000 intlu PO DAILY [facility] Last Admin: 12/08/17 08:58 Dose: 1,000 intlu Clonidine HCl (Catapres) 0.2 mg PO TID [facility] Last Admin: 12/08/17 13:08 Dose: Not Given Clopidogrel Bisulfate (Plavix) 75 mg PO DAILY [facility] Last Admin: 12/05/17 09:46 Dose: Not Given Diphenoxylate HCl/Atropine (Lomotil 0.025-2.5 Mg Tablet) 1 tab PO BID PRN PRN Reason: Diarrhea Epoetin Alexy (Procrit) 8,000 unit SC TTS [facility] Last Admin: 12/08/17 13:10 Dose: 8,000 unit Famotidine (Pepcid) 20 mg PO BID [facility] Last Admin: 12/08/17 08:58 Dose: 20 mg Glipizide (Glucotrol) 10 mg PO BIDAC [facility] Last Admin: 12/08/17 08:59 Dose: 10 mg Home Med (Patient's Own Medication) 8 unit SC [facility] Last Admin: 12/07/17 22:22 Dose: Not Given Ciprofloxacin (Cipro 200mg/100ml D5w) 100 mls @ 100 mls/hr IVPB Q12 [facility]; Protocol Metronidazole 250 mg/ (Miscellaneous) 50 mls @ 50 mls/hr IVPB Q8 [facility]; Protocol Last Admin: 12/08/17 08:57 Dose: 50 mls/hr Insulin Detemir (Levemir) 8 units SC [facility] Last Admin: 12/07/17 22:05 Dose: 8 units Insulin Human Lispro (Humalog) 0 units SC [facility]; Protocol Last Admin: 12/08/17 12:36 Dose: Not Given Losartan Potassium (Cozaar) 50 mg PO DAILY [facility] Last Admin: 12/08/17 09:01 Dose: 50 mg Metoprolol Tartrate (Lopressor) 50 mg PO BID [facility] Last Admin: 12/05/17 17:20 Dose: Not Given Ofloxacin (Ocuflox Ophth 0.3%) 1 drop OD QID [facility] Last Admin: 12/08/17 13:10 Dose: 1 drop Ondansetron HCl (Zofran Inj) 4 mg IVP Q6 PRN PRN Reason: Nausea/Vomiting Last Admin: 12/05/17 15:01 Dose: 4 mg Prednisolone Acetate (Pred Forte 1% Opht Susp) 1 drop OD QID [facility] Last Admin: 12/08/17 13:10 Dose: 1 drop Sertraline HCl (Zoloft) 50 mg PO [facility] Last Admin: 12/07/17 22:15 Dose: 50 mg Sevelamer Carbonate (Renvela) 3,200 mg PO TIDWM [facility] Last Admin: 12/08/17 13:09 Dose: Not Given Vitamin B Complex/Vit C/Folic Acid (Nephro-Jeff) 1 tab PO DAILY [facility] Last Admin: 12/08/17 08:58 Dose: 1 tab - Labs Labs: 12/08/17 05:10 12/08/17 05:10 PT 12.7 Seconds (9.8-13.1) 12/03/17 16:35 INR 1.1 12/03/17 16:35 APTT 33.7 Seconds (25.6-37.1) 12/03/17 16:35
--- NOTE | 2017-12-08 21:09 | PN ---
DATE: 12/08/2017 SUBJECTIVE: The patient is currently undergoing hemodialysis. He denies any chest pain or shortness of breath. PHYSICAL EXAMINATION: VITAL SIGNS: Blood pressure 172/94, heart rate 83, temperature 97.9, respirations 20. HEENT: Normocephalic. CHEST: Diminished breath sounds at the bases. HEART: S1, S2, regular. ABDOMEN: Soft. EXTREMITIES: 1+ pitting edema. LABORATORY DATA: Today's SMA-7: Sodium 138, potassium 4.7, chloride 96, CO2 of 25, glucose 157, BUN 68, creatinine 7.2. Today's hemoglobin and hematocrit 10.1 and 31.5, white count 4.9, platelet count 113,000. ASSESSMENT AND PLAN: 1. Systolic heart failure. 2. End-stage renal disease, on hemodialysis. 3. Chronic atrial fibrillation. 4. Rule out ischemic cardiomyopathy. 5. Proctocolitis. 6. Peripheral neuropathy. 7. Mild thrombocytopenia and mild anemia. RECOMMENDATIONS: Continue IV ciprofloxacin 200 mg every 12 hours, continue Cozaar 50 mg daily, aspirin 81 mg once a day, glipizide 10 mg twice a day, Lipitor 20 mg once a day, Flagyl 250 mg every 8 hours, Lopressor 50 mg twice a day, Plavix 75 mg once a day. The case was discussed with Dr. Brower, the primary physician, who cleared the patient for cardiac catheterization to be scheduled on Tuesday at [facility]. The patient understood the procedure and its risks and agreed for the procedure. Rylan Suaceda MD
[2017-12-08] MEDS: [UNRECOGNIZED DRUG - OTHER] SC SCH (21:14)
[2017-12-08] MEDS: INSULIN GLARGINE SC SCH (21:14)
[2017-12-08] MEDS: Insulin Detemir 100 Units/ml Inj SC SCH (22:06)
--- NOTE | 2017-12-09 00:20 | PN ---
DATE: 12/08/2017 SUBJECTIVE: The patient is seen today December 08, 2017. He is not in any cardiopulmonary distress. The patient still feels dizzy and he has exertional shortness of breath. PHYSICAL EXAMINATION: VITAL SIGNS: Blood pressure is 153/87, temperature 97.9, respiratory rate 20 and pulse 58. HEENT: Slightly pale mucosa of the conjunctivae. NECK: Supple. No JVD. No carotid bruit. No lymph node. No thyromegaly. CHEST AND LUNGS: Bilateral symmetrical expansion. Good air exchange. No rales, no rhonchi. CARDIOVASCULAR SYSTEM: PMI not localized. S1, S2. . ABDOMEN: Normoactive bowel sounds. No tenderness. No organomegaly. No masses. EXTREMITIES: No cyanosis, no clubbing, no edema. CENTRAL NERVOUS SYSTEM: Alert, awake, oriented x2. There is bilateral lower extremity weakness, right more than left. ASSESSMENT: 1. Proctocolitis. 2. Acute on chronic systolic and diastolic heart failure. 3. End-stage renal disease on hemodialysis. 4. Hypertension. 5. Type 2 diabetes mellitus. 6. Chronic atrial fibrillation. PLAN: Discussed the patient's condition with Dr. Sauceda who has scheduled the patient to have cardiac catheterization with possible silver service waiter in [facility]. Continue current medications for now. Alverto Brower MD
[2017-12-09] MEDS: metroNIDAZOLE 500mg/100ml NS 250 MG in Premixed IV 1 EA IVPB SCH ×3 (01:45→17:28)
--- NOTE | 2017-12-09 01:51 | CON ---
DATE: 12/08/2017 REFERRING PHYSICIAN: Dr. Sauceda. The patient was seen in [facility]. Thank you very much for this consult. REASON FOR EVALUATION: 1. Dilated cardiomyopathy for evaluation for primary preventions and cardiac cath. 2. Bradycardia. 3. History of atrial fibrillation. HISTORY OF PRESENT ILLNESS: Mr. Alcon Lubin is a very pleasant 62-year-old male with past medical history significant for endstage renal disease over the last 10 years, chronic atrial fibrillation who had been on anticoagulation in the past, presents to [facility] with generalized weakness as well as diarrhea. The patient was admitted and seen in consultation by Dr. Sauceda. His clinical status has gradually improved. He was found to have episodes of atrial fibrillation with slow ventricular response in the 50s. In addition, echocardiogram showed the patient had significant LV systolic dysfunction. I was asked to see him in regards to possible AICD for the primary prevention of sudden cardiac . The patient prior to this recent intercurrent illness had been at his baseline. The patient lives at home and has poor functional status secondary to severe diabetes, trouble outside is mainly limited to hemodialysis. He denies shortness of breath, dizziness, or syncope. No prior history of palpitations either. The patient previously was having a history of bradycardia and was discontinued on medical therapy of beta-nury/clonidine. SOCIAL HISTORY: The patient is a nondrinker, nonsmoker, and currently lives with his . PAST MEDICAL/SURGICAL HISTORY: Includes hypertension, diabetes, endstage renal disease, on hemodialysis. He is dialyzed through a left upper extremity fistula for which he has not experienced any issues. History of amputation of his left fifth finger as well as distal phalanges on the fingers related to obsessive behavior of biting his nails, subsequent infection and osteomyelitis. REVIEW OF SYSTEMS: As noted in the history of present illness, complete 12-point review has been performed. MEDICATIONS: At the time of evaluation includes the following: Xanax 0.5 mg p.o. at bedtime.; aspirin 81 mg p.o. daily; Lipitor 20 mg p.o. at bedtime; Calcitrol 0.25 mg p.o. daily; vitamin D 1000 international units p.o. daily; ciprofloxacin IV; clonidine or Catapres 0.2 mg t.i.d.; Plavix 75 mg p.o. daily; Epogen 8000 units subcu, Tuesday, , Tuesday; Pepcid 20 mg p.o. b.i.d.; Glucotrol 10 mg p.o. b.i.d. a.c.; Levemir insulin; Humalog; Losartan 50 mg p.o. daily; metoprolol tartrate 50 mg p.o. b.i.d.; metronidazole; Zoloft 50 mg p.o. at bedtime; Renvela; vitamin B, C and folic acid complex. Metoprolol tartrate 50 mg b.i.d. is being held. LABORATORY DATA: On review of relevant lab work, the patient has a white count of 4.9, H and H of 10.1 and 31.5, platelets of 113,000. Sodium 138, potassium of 4.7, BUN and creatinine of 68 and 7.2, calcium is 8.5. PHYSICAL EXAMINATION: GENERAL: He is a very pleasant but very ill appearing male of considerable size. VITAL SIGNS: Temperature is 97.4, blood pressure is 134/84, respiratory rate of 18. HEENT: Examination of his head is normocephalic and atraumatic. There is no yocasta facial asymmetry. Does have a very vacant type of expression most of the time. NECK: Supple. No jugular venous distention. No carotid bruits. CHEST: Clear to auscultation bilaterally. Left side is notable for AV fistula in the left forearm. EXTREMITIES: No cyanosis, clubbing. A 2D echocardiogram which is done on 11/19/2017 shows LV of normal size. Ejection fraction is between 25% and 30%. There is global hypokinesis. Left ventricular diastolic function could not be assessed due to underlying atrial fibrillation. Right ventricle is of normal size. Left atrium is severely dilated. Right atrium is of normal size. There is no evidence of atrial septal defect as per the reader. Aortic valve is without stenosis or regurgitation. Mitral valve is also without stenosis or regurgitation. Both pulmonic valves appear to be normal. Aortic root also appears to be normal. There is pulmonary hypertension with an RVSP noted 70 mmHg. EKG which is done on 12/05/2017 shows atrial fibrillation with borderline slow ventricular response. There is leftward axis, evidence of possible inferior wall myocardial infarction. There is poor precordial R wave progression across the precordium. QT, QTc is significant for prolongation. QT is 492 and QTc is 487 msec. ASSESSMENT AND PLAN: 1. Dilated cardiomyopathy. The patient appears to have a longstanding cardiomyopathy with reduced ejection fraction dating as far back to 2015. Currently ejection fraction is between 25% and 35%. He is a candidate for an implantable defibrillator for primary prevention of sudden cardiac . I would discuss the case further with managing sailboat captain. The patient does give a history of having electrocardioversions that has not been successful in the past. The patient had been on anticoagulation but then was also discontinued for unclear reason. The patient does say that there was some issue in terms of trying to regulate his INR. At this point, we will keep off anticoagulation. The patient is to remain off anticoagulation until a defibrillator is placed. Ischemic workup prior to ICD implantation has been suggested, may do agree with possible reevaluation. I will discuss further with Dr. Rylan Sauceda. 2. Atrial fibrillation which at this point appears to be chronic. It is unclear how reasonable or feasible it is to restore normal rhythm substrate with left atrial dilatation. 3. Pulmonary hypertension, will need to be monitored likely largely secondary to chronic volume overload state and left ventricular systolic dysfunction. PLAN: The patient appears to be a candidate for an implantable defibrillator for primary prevention and sudden cardiac , ischemic workup as per Dr. Sauceda if and when he is ready from a medical/cardiac standpoint. The patient may be referred for permanent defibrillator implantation. Thank you for allowing me to participate in the care of your patient. Please do not hesitate to call if you have any questions in regards to his care. Yours sincerely, Win Lopez MD cc: MD Alverto Rutledge MD
[2017-12-09] MEDS: Multivitamin Vitamin B Complex (Nephro-Vite) Tab PO SCH (08:57)
[2017-12-09] MEDS: Insulin Lispro (humaLOG) 100 Units/ml Inj SC SCH ×4 (08:58→21:30)
[2017-12-09] MEDS: Cholecalciferol 1,000 INTLU TAB PO SCH (08:59)
--- NOTE | 2017-12-09 12:06 | CP.PCM.CON ---
History of Present Illness - History of Present Illness History of Present Illness: Infectious Disease Consultation Note- ASked to see this patient at the request of for diarrhea and ? posutuve salmonella serology. HPI- Patient well known to me from his previous admissions for infected digits and bacteremia. Pt. 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 He is now been admitted this time for diarrhea which as per patient started a week ago and was not resolving and hence he was brought to hospital for further evaluation and treatment. He denies any nausea or vomiting, only dark colored watery diarrhea and along with bloating. He denies any change in his diet and denies any sick contacts and denies any recent travel. the only change he states is that recently his phosphorus tab was changed by his renal doc and after that he developed diarrhea. He states that actually since yesterday his diarrhea has resolved and he now has formed stools and his bloating has improved as well. pt. apparently also had CT scan which was read as proctocolitis and GI has seen pt. and stool cx was negative but he had salmonella serology done and 2 of the AB are reported as positive and Hence i'm asked to see the patient to see if he needs any antibiotics since he does have many antibiotic allergies and he is scheduled for cardiac cath for early next wee as well. Upon further questioning pt. explains his reaction to cipro is Knee pain , he states as far as PCN he was told by his mother that as a child he got some rash with PCN but not any breathing difficulty, he also developed tinnitus with vanco x 1 and was resolved after. Review of Systems - Review of Systems Review of Systems: ROS- denies any fever or chills, denies any TAPIA, denies any cough, denies nay sob, denies any chest pain, clyde any abd. pain but has bloating and gas, + dark watery diarrhea for one week but resolved 2 days ago, denies any nausea or vomiting, Past Patient History - Infectious Disease Hx of Infectious Diseases: None - Past Medical History & Family History Past Medical History?: Yes - Past Social History Smoking Status: Never Smoked Drugs: Denies Home Situation {Lives}: With Family - CARDIAC Hx Atrial Fibrillation: Yes Hx Cardia Arrhythmia: Yes Hx Congestive Heart Failure: Yes Hx Hypercholesterolemia: Yes Hx Hypertension: Yes - PULMONARY Hx Chronic Obstructive Pulmonary Disease (COPD): No Hx Pneumonia: Yes Hx Sleep Apnea: Yes - NEUROLOGICAL Hx Transient Ischemic Attacks (TIA): Yes (2010) - HEENT Hx HEENT Problems: Yes (RETINOPATHY/CATARACT) - RENAL Hx Chronic Kidney Disease: Yes - ENDOCRINE/METABOLIC Hx Diabetes Mellitus Type 2: Yes Hx Hypothyroidism: No - HEMATOLOGICAL/ONCOLOGICAL Hx Anemia: Yes - INTEGUMENTARY Hx Dermatological Problems: Yes - MUSCULOSKELETAL/RHEUMATOLOGICAL Hx Arthritis: Yes Hx Falls: Yes Hx Fractures: Yes (Right foot surgery) Hx Rheumatoid Arthritis: No - GASTROINTESTINAL Hx Gastrointestinal Disorders: Yes Hx Gastroesophageal Reflux: Yes Other/Comment: CONSTIPATION. ELEVATED LFTS. HEPATIC CIRRHOISIS - GENITOURINARY/GYNECOLOGICAL Hx Genitourinary Disorders: Yes - PSYCHIATRIC Hx Anxiety: Yes Hx Depression: Yes Hx Substance Use: No - SURGICAL HISTORY Hx Surgeries: Yes Hx Amputation: Yes (AMPUTATION OF LEFT HAND 1ST AND 4TH DIGIT) Hx Cataract Extraction: Yes (L eye) Hx Cardiac Catheterization: Yes Hx Eye Surgery: Yes (RETINOPATHY ) Hx Musculoskeletal Surgery: Yes (LUMBAR SPINE SX 2002) Hx Orthopedic Surgery: Yes (RUBI BREAK RIGHT FOOT 2012 SCREW AND METAL PLATES PLACED) Hx Vascular Surgery: Yes (AV FISTULA RIGHT FORE ARM) Hx Vascular Access Device: Yes (l avf) Other/Comment: PENILE CIRCUMCISION 08/27/16. LEFT HAND 1ST AND FOURTH DIGIT AMPUTATION 2016 - ANESTHESIA Hx Anesthesia: Yes Hx Anesthesia Reactions: Yes (PROPOFOL (CARDIAC ARREST)) Hx Malignant Hyperthermia: No Meds Allergies/Adverse Reactions: Allergies Allergy/AdvReac Type Severity Reaction Status Date / Time ciprofloxacin Allergy SWELLING Verified 06/21/17 10:25 Penicillins Allergy ANAPHYLAXIS Verified 06/21/17 10:25 propofol Allergy ANAPHYLAXIS Verified 06/21/17 10:25 vitamin K2 Allergy SHORTNESS Verified 06/21/17 10:25 OF BREATH diphenhydramine HCl AdvReac ITCHING Verified 06/21/17 10:25 [From Benadryl] surgical tape Allergy REDNESS Uncoded 06/21/17 10:25 - Medications Medications: Current Medications Alprazolam (Xanax) 0.5 mg PO HS [facility] Last Admin: 12/08/17 21:14 Dose: 0.5 mg Aspirin (Ecotrin) 81 mg PO DAILY [facility] Last Admin: 12/09/17 08:57 Dose: 81 mg Atorvastatin Calcium (Lipitor) 20 mg PO HS [facility] Last Admin: 12/08/17 21:14 Dose: 20 mg Calcitriol (Rocaltrol) 0.25 mcg PO DAILY [facility] Last Admin: 12/09/17 08:57 Dose: 0.25 mcg Cholecalciferol (Vitamin D) 1,000 intlu PO DAILY [facility] Last Admin: 12/09/17 08:59 Dose: 1,000 intlu Clonidine HCl (Catapres) 0.2 mg PO TID [facility] Last Admin: 12/09/17 08:58 Dose: 0.2 mg Clopidogrel Bisulfate (Plavix) 75 mg PO DAILY [facility] Last Admin: 12/05/17 09:46 Dose: Not Given Diphenoxylate HCl/Atropine (Lomotil 0.025-2.5 Mg Tablet) 1 tab PO BID PRN PRN Reason: Diarrhea Epoetin Alexy (Procrit) 8,000 unit SC TTS [facility] Last Admin: 12/08/17 13:10 Dose: 8,000 unit Famotidine (Pepcid) 20 mg PO BID [facility] Last Admin: 12/09/17 08:57 Dose: 20 mg Glipizide (Glucotrol) 10 mg PO BIDAC [facility] Last Admin: 12/09/17 08:56 Dose: 10 mg Home Med (Patient's Own Medication) 8 unit SC [facility] Last Admin: 12/08/17 21:14 Dose: Not Given Ciprofloxacin (Cipro 200mg/100ml D5w) 100 mls @ 100 mls/hr IVPB Q12 [facility]; Protocol Metronidazole 250 mg/ (Miscellaneous) 50 mls @ 50 mls/hr IVPB Q8 [facility]; Protocol Last Admin: 12/09/17 09:02 Dose: 50 mls/hr Insulin Detemir (Levemir) 8 units SC HS [facility] Last Admin: 12/08/17 22:06 Dose: 8 units Insulin Human Lispro (Humalog) 0 units SC ACHS [facility]; Protocol Last Admin: 12/09/17 11:50 Dose: Not Given Losartan Potassium (Cozaar) 50 mg PO DAILY [facility] Last Admin: 12/09/17 08:57 Dose: 50 mg Ondansetron HCl (Zofran Inj) 4 mg IVP Q6 PRN PRN Reason: Nausea/Vomiting Last Admin: 12/05/17 15:01 Dose: 4 mg Sertraline HCl (Zoloft) 50 mg PO HS [facility] Last Admin: 12/08/17 21:14 Dose: 50 mg Sevelamer Carbonate (Renvela) 3,200 mg PO TIDWM [facility] Last Admin: 12/09/17 08:59 Dose: 3,200 mg Vitamin B Complex/Vit C/Folic Acid (Nephro-Jeff) 1 tab PO DAILY [facility] Last Admin: 12/09/17 08:57 Dose: 1 tab Physical Exam - Constitutional Appears: No Acute Distress - Head Exam Head Exam: ATRAUMATIC - Eye Exam Eye Exam: EOMI - ENT Exam ENT Exam: Normal Oropharynx - Neck Exam Neck exam: Positive for: Full Rom - Respiratory Exam Respiratory Exam: Clear to Auscultation Bilateral, NORMAL BREATHING PATTERN - Cardiovascular Exam Cardiovascular Exam: RRR, +S1, +S2 - GI/Abdominal Exam GI & Abdominal Exam: Normal Bowel Sounds, Soft Additional comments: minimal distention but soft No tenderness to palpation No rebound, no guarding - Extremities Exam Additional comments: B/L lE dark discoloration chronic. left hand with multiple distal digit amputations - Neurological Exam Neurological exam: Alert, Oriented x3 Results - Vital Signs Recent Vital Signs: Last Vital Signs Temp 97.9 F 12/09/17 07:59 Pulse 66 12/09/17 09:00 Resp 18 12/09/17 07:59 BP 151/79 H 12/09/17 08:58 Pulse Ox 95 12/09/17 07:59 - Labs Result Diagrams: 12/08/17 05:10 12/08/17 05:10 Labs: Laboratory Results - last 24 hr 12/04/17 12/08/17 12/08/17 15:27 16:06 21:59 POC Glucose (mg/dL) 112 H 161 H Liver/Kid Microsomes Ab <=20.0 12/09/17 12/09/17 06:11 11:20 POC Glucose (mg/dL) 175 H 130 H Liver/Kid Microsomes Ab Laboratory Results - last 72 hr 10/12/04/17 12/05/17 15:27 15:27 09:25 WBC RBC Hgb Hct MCV MCH MCHC RDW Plt Count Sodium Potassium Chloride Carbon Dioxide Anion Gap BUN Creatinine Est GFR ( Amer) Est GFR (Non-Af Amer) POC Glucose (mg/dL) Random Glucose Calcium TSH 3rd Generation Anti-Smooth Muscle Ab Negative Liver/Kid Microsomes Ab <=20.0 CMV IgG Ab 2.20 H CMV IgM Ab <30.00 Salmonella H Type A Equivocal H Salmonella H Type B Equivocal H Salmonella H Type D Negative Salmonella O Type D Negative Salmonella O Type Vi Negative 12/06/17 12/06/17 12/06/17 16:09 17:36 18:51 WBC RBC Hgb Hct MCV MCH MCHC RDW Plt Count Sodium Potassium Chloride Carbon Dioxide Anion Gap BUN Creatinine Est GFR ( Amer) Est GFR (Non-Af Amer) POC Glucose (mg/dL) 86 132 H Random Glucose Calcium TSH 3rd Generation 0.51 Anti-Smooth Muscle Ab Liver/Kid Microsomes Ab CMV IgG Ab CMV IgM Ab Salmonella H Type A Salmonella H Type B Salmonella H Type D Salmonella O Type D Salmonella O Type Vi 12/06/17 12/07/17 12/07/17 21:38 05:27 10:54 WBC RBC Hgb Hct MCV MCH MCHC RDW Plt Count Sodium Potassium Chloride Carbon Dioxide Anion Gap BUN Creatinine Est GFR ( Amer) Est GFR (Non-Af Amer) POC Glucose (mg/dL) 227 H 172 H 88 Random Glucose Calcium TSH 3rd Generation Anti-Smooth Muscle Ab Liver/Kid Microsomes Ab CMV IgG Ab CMV IgM Ab Salmonella H Type A Salmonella H Type B Salmonella H Type D Salmonella O Type D Salmonella O Type Vi 12/07/17 12/07/17 12/08/17 16:19 21:20 05:10 WBC 4.9 RBC 3.21 L Hgb 10.1 L Hct 31.5 L MCV 98.1 H MCH 31.5 H MCHC 32.1 L RDW 16.8 H Plt Count 113 L Sodium Potassium Chloride Carbon Dioxide Anion Gap BUN Creatinine Est GFR ( Amer) Est GFR (Non-Af Amer) POC Glucose (mg/dL) 182 H 222 H Random Glucose Calcium TSH 3rd Generation Anti-Smooth Muscle Ab Liver/Kid Microsomes Ab CMV IgG Ab CMV IgM Ab Salmonella H Type A Salmonella H Type B Salmonella H Type D Salmonella O Type D Salmonella O Type Vi 12/08/17 12/08/17 12/08/17 05:10 05:21 11:01 WBC RBC Hgb Hct MCV MCH MCHC RDW Plt Count Sodium 138 Potassium 4.7 Chloride 96 L Carbon Dioxide 25 Anion Gap 22 H BUN 68 H Creatinine 7.2 H Est GFR ( Amer) 9 Est GFR (Non-Af Amer) 8 POC Glucose (mg/dL) 186 H 112 H Random Glucose 157 H Calcium 8.5 TSH 3rd Generation Anti-Smooth Muscle Ab Liver/Kid Microsomes Ab CMV IgG Ab CMV IgM Ab Salmonella H Type A Salmonella H Type B Salmonella H Type D Salmonella O Type D Salmonella O Type Vi 12/08/17 12/08/17 12/09/17 16:06 21:59 06:11 WBC RBC Hgb Hct MCV MCH MCHC RDW Plt Count Sodium Potassium Chloride Carbon Dioxide Anion Gap BUN Creatinine Est GFR ( Amer) Est GFR (Non-Af Amer) POC Glucose (mg/dL) 112 H 161 H 175 H Random Glucose Calcium TSH 3rd Generation Anti-Smooth Muscle Ab Liver/Kid Microsomes Ab CMV IgG Ab CMV IgM Ab Salmonella H Type A Salmonella H Type B Salmonella H Type D Salmonella O Type D Salmonella O Type Vi 12/09/17 11:20 WBC RBC Hgb Hct MCV MCH MCHC RDW Plt Count Sodium Potassium Chloride Carbon Dioxide Anion Gap BUN Creatinine Est GFR ( Amer) Est GFR (Non-Af Amer) POC Glucose (mg/dL) 130 H Random Glucose Calcium TSH 3rd Generation Anti-Smooth Muscle Ab Liver/Kid Microsomes Ab CMV IgG Ab CMV IgM Ab Salmonella H Type A Salmonella H Type B Salmonella H Type D Salmonella O Type D Salmonella O Type Vi Microbiology 12/03/17 20:45 Blood-Venous Blood Culture - Final NO GROWTH AFTER 5 DAYS 12/03/17 20:45 Blood-Venous Gram Stain - Final TEST NOT PERFORMED 12/03/17 20:30 Blood-Venous Blood Culture - Final NO GROWTH AFTER 5 DAYS 12/03/17 20:30 Blood-Venous Gram Stain - Final TEST NOT PERFORMED 12/03/17 20:30 Stool Stool Culture - Final NO SALMONELLA, SHIGELLA OR CAMPYLOBACTER ISOLATED. Accession No. : [id number] Patient Name / ID : AYANA Dao / [id number] Exam Date : 12/03/2017 18:18:42 ( Approved ) Study Comment : Sex / Age : M / 62Y Creator : Walt Gallagher MD Dictator : Walt Gallagher MD Wick And Base Assembler : Geospatial Extractor Analysis : Walt Gallagher MD Approver2 : Report Date : 12/04/2017 09:32:41 My Comment : Date of service: 12/03/2017 PROCEDURE: CT Abdomen and Pelvis without intravenous contrast HISTORY: Diarrhea COMPARISON: None. TECHNIQUE: Contiguous images were obtained from the domes of the diaphragms to the upper thighs without the administration of intravenous contrast. Oral contrast was not administered. Radiation dose: Total exam DLP = 931.48 mGy-cm. This CT exam was performed using one or more of the following dose reduction techniques: Automated exposure control, adjustment of the mA and/or kV according to patient size, and/or use of iterative reconstruction technique. FINDINGS: LOWER THORAX: Cardiomegaly. Coronary arterial and valvular calcifications. Bibasilar dependent atelectasis versus scarring. LIVER: Hepatomegaly. No gross lesion or ductal dilatation. GALLBLADDER AND BILE DUCTS: Unremarkable. PANCREAS: Stable appearance of multiple pancreatic cystic structures, likely IPMN. No gross lesion or ductal dilatation. SPLEEN: Splenomegaly. ADRENALS: Unremarkable. No mass. KIDNEYS AND URETERS: Unremarkable. No hydronephrosis. No solid mass. VASCULATURE: No aortic aneurysm. Extensive aortic and arterial atherosclerotic calcifications. BOWEL: Thickening of the rectosigmoid. No obstruction. APPENDIX: Unremarkable. Normal appendix. PERITONEUM: Unremarkable. Trace perihepatic and perisplenic ascites. No free air. LYMPH NODES: Unremarkable. No enlarged lymph nodes. BLADDER: Unremarkable. REPRODUCTIVE: Unremarkable. BONES: No acute fracture. Prior posterior fusion of L4-5. OTHER FINDINGS: None. IMPRESSION: Infectious/inflammatory proctocolitis. Hepatosplenomegaly with trace perihepatic and perisplenic ascites. Additional stable findings as above. Assessment & Plan (1) Diarrhea Status: Acute (2) CKD (chronic kidney disease) requiring chronic dialysis Status: Acute (3) Proctocolitis Status: Acute - Assessment and Plan (Free Text) Assessment: A/P- 62 year old male with multiple comorbidities including ESRD On HD, DM II, A.fib, CVA in past, multiple digit amputations secondary to infections admitted with diarrhea. currently pt. is clinically stable . diarrhea seems to have resolved. CT was reported as ? proctocolitis. stool cx is negative for salmonella or shigella or campylobacter. stool c.diff is also neagtive salmonella serology 2 of the 5 serotypes are reported as equivoval type H type A and H type B. Widel test is not gold standard for diagnosis. plan- salmonella diagnosis is by stool culture . serology is usuay not used for diagnosis as it can indicate past infection or exposure and this patient is afebrile with negative stool cx and negative blood cx. however, since he is expected to have cardiac cath procedure and he has multiple abx allergies and he has multiple comorbidities and the Ct findings as above ,I advise to give azithromycin 500 mg po daily for 5-7 days . check another stool culture. can continue with IV flagyl which was already initiated buy his PMD as well. Pt. states he has taken zithromax in past without any problems All above d/w patient and he verbalizes full understanding of all above and agrees with above plan of care. Thank you for allowing me to take part in the care of this patient.
--- NOTE | 2017-12-09 15:39 | CP.PCM.PN ---
Subjective - Date & Time of Evaluation Date of Evaluation: 12/09/17 Time of Evaluation: 15:38 - Subjective Subjective: RENAL consult for ESRD s; pt feels usual health. denies cp/sob/nausea/vomitting. labs and imaging reviewed pe: vs as below gen: nad sclera: anicteric op clear neck: supple, no thyromegaly lungs cta b/l abd soft, no r/g, + bs no organomegaly ext: trace edema lle neuro: a+ox3 follows command psych: nml affect skin: bit browne on tips of fingers imp: ESRD / diarrhea/ Anemia of Renal Disease/ Hypertensive Kidney disease/ Secondary hyperparathyroid/ Hyperphosphatemia/CHF/proctocolitis/sev pHTN Plan HD TTS, plan for HD tomorrow appreciate GI and ID evaluation on renvela : continue same continue calcitriol continue epogen continue home bp meds plan for cardiac cath tuesday Objective - Vital Signs/Intake and Output Vital Signs (last 24 hours): Temp Pulse Resp BP Pulse Ox 97.9 F 63 20 166/89 H 97 12/09/17 15:38 12/09/17 15:38 12/09/17 15:38 12/09/17 15:38 12/09/17 15:38 - Medications Medications: Current Medications Alprazolam (Xanax) 0.5 mg PO HS [facility] Last Admin: 12/08/17 21:14 Dose: 0.5 mg Aspirin (Ecotrin) 81 mg PO DAILY [facility] Last Admin: 12/09/17 08:57 Dose: 81 mg Atorvastatin Calcium (Lipitor) 20 mg PO HS [facility] Last Admin: 12/08/17 21:14 Dose: 20 mg Azithromycin (Zithromax) 500 mg PO DAILY [facility]; Protocol Calcitriol (Rocaltrol) 0.25 mcg PO DAILY [facility] Last Admin: 12/09/17 08:57 Dose: 0.25 mcg Cholecalciferol (Vitamin D) 1,000 intlu PO DAILY [facility] Last Admin: 12/09/17 08:59 Dose: 1,000 intlu Clonidine HCl (Catapres) 0.2 mg PO TID [facility] Last Admin: 12/09/17 12:58 Dose: 0.2 mg Clopidogrel Bisulfate (Plavix) 75 mg PO DAILY [facility] Last Admin: 12/05/17 09:46 Dose: Not Given Diphenoxylate HCl/Atropine (Lomotil 0.025-2.5 Mg Tablet) 1 tab PO BID PRN PRN Reason: Diarrhea Epoetin Alexy (Procrit) 8,000 unit SC TTS [facility] Last Admin: 12/08/17 13:10 Dose: 8,000 unit Famotidine (Pepcid) 20 mg PO BID [facility] Last Admin: 12/09/17 08:57 Dose: 20 mg Glipizide (Glucotrol) 10 mg PO BIDAC [facility] Last Admin: 12/09/17 08:56 Dose: 10 mg Home Med (Patient's Own Medication) 8 unit SC HS [facility] Last Admin: 12/08/17 21:14 Dose: Not Given Ciprofloxacin (Cipro 200mg/100ml D5w) 100 mls @ 100 mls/hr IVPB Q12 [facility]; Protocol Metronidazole 250 mg/ (Miscellaneous) 50 mls @ 50 mls/hr IVPB Q8 [facility]; Protocol Last Admin: 12/09/17 09:02 Dose: 50 mls/hr Insulin Detemir (Levemir) 8 units SC [facility] Last Admin: 12/08/17 22:06 Dose: 8 units Insulin Human Lispro (Humalog) 0 units SC [facility]; Protocol Last Admin: 12/09/17 11:50 Dose: Not Given Losartan Potassium (Cozaar) 50 mg PO DAILY [facility] Last Admin: 12/09/17 08:57 Dose: 50 mg Sertraline HCl (Zoloft) 50 mg PO HS [facility] Last Admin: 12/08/17 21:14 Dose: 50 mg Sevelamer Carbonate (Renvela) 3,200 mg PO TIDWM [facility] Last Admin: 12/09/17 12:58 Dose: 3,200 mg Vitamin B Complex/Vit C/Folic Acid (Nephro-Jeff) 1 tab PO DAILY [facility] Last Admin: 12/09/17 08:57 Dose: 1 tab - Labs Labs: 12/08/17 05:10 12/08/17 05:10 PT 12.7 Seconds (9.8-13.1) 12/03/17 16:35 INR 1.1 12/03/17 16:35 APTT 33.7 Seconds (25.6-37.1) 12/03/17 16:35
[2017-12-09] MEDS: Insulin Detemir 100 Units/ml Inj SC SCH (21:31)
[2017-12-09] MEDS: [UNRECOGNIZED DRUG - OTHER] SC SCH (21:37)
[2017-12-09] MEDS: INSULIN GLARGINE SC SCH (21:37)
[2017-12-10] MEDS: metroNIDAZOLE 500mg/100ml NS 250 MG in Premixed IV 1 EA IVPB SCH ×4 (00:18→21:33)
[2017-12-10] MEDS: Insulin Lispro (humaLOG) 100 Units/ml Inj SC SCH ×4 (06:31→22:39)
[2017-12-10] MEDS: Cholecalciferol 1,000 INTLU TAB PO SCH (08:27)
[2017-12-10] MEDS: Multivitamin Vitamin B Complex (Nephro-Vite) Tab PO SCH (08:28)
[2017-12-10] MEDS: Epoetin Alfa 20000 UNIT/ML Inj SC SCH (18:06)
--- NOTE | 2017-12-10 21:03 | PN ---
DATE: 12/09/2017 SUBJECTIVE: The patient was seen on 12/09/2017. He was having still exertional shortness of breath and generalized weakness and dizziness on standing or getting up of the bed. PHYSICAL EXAMINATION VITAL SIGNS: Blood pressure 166/89, temperature 97.9, respiratory rate 20 and pulse 63. HEENT: Slightly pale mucosa of the conjunctivae. NECK: Supple. No JVD. No carotid bruit. No lymph node. No thyromegaly. CHEST AND LUNGS: Bilateral symmetrical expansion. Good air exchange. Basilar rales. CARDIOVASCULAR SYSTEM: PMI not localized. S1 and S2 irregularly irregular. ABDOMEN: Normoactive bowel sounds. No tenderness. No organomegaly. No masses. EXTREMITIES: No cyanosis, no clubbing, no edema. CENTRAL NERVOUS SYSTEM: Alert, awake, oriented x2. No neurological deficit could be appreciated. ASSESSMENT: 1. Proctocolitis with abdominal pain and diarrhea that is responding to metronidazole. The antibody for Salmonella positive was noticed, but it could be secondary to previous infection or exposure. The patient has stool culture negative for Salmonella. 2. Congestive heart failure, both [id number] systolic and diastolic. 3. End-stage renal disease, on hemodialysis. 4. Type 2 diabetes mellitus with hyperglycemia. PLAN: ID consult and follow recommendations. Continue current medications and management. Follow Cardiology recommendations regarding cardiac catheterization that is scheduled already on 12/12/2017. Alverto Brower MD
--- NOTE | 2017-12-10 21:42 | CP.PCM.PN ---
Subjective - Date & Time of Evaluation Date of Evaluation: 12/10/17 Time of Evaluation: 13:00 - Subjective Subjective: RENAL consult for ESRD s; pt feels usual health. labs and imaging reviewed pe: vs as below gen: nad sclera: anicteric op clear neck: supple, no thyromegaly lungs cta b/l abd soft, no r/g, + bs no organomegaly ext: trace edema lle neuro: a+ox3 follows command psych: nml affect skin: bit browne on tips of fingers imp: ESRD / diarrhea/ Anemia of Renal Disease/ Hypertensive Kidney disease/ Secondary hyperparathyroid/ Hyperphosphatemia/CHF/proctocolitis/sev pHTN Plan HD TTS, plan for HD today per schedule volume stable on renvela : continue same continue calcitriol continue epogen continue home bp meds Objective - Vital Signs/Intake and Output Vital Signs (last 24 hours): Temp Pulse Resp BP Pulse Ox 97.2 F L 64 20 159/93 H 100 12/10/17 20:34 12/10/17 20:34 12/10/17 20:34 12/10/17 20:34 12/10/17 20:34 - Medications Medications: Current Medications Acetaminophen (Tylenol 325mg Tab) 650 mg PO Q6 PRN PRN Reason: Headache Last Admin: 12/10/17 19:00 Dose: 650 mg Alprazolam (Xanax) 0.5 mg PO HS [facility] Last Admin: 12/10/17 21:37 Dose: 0.5 mg Aspirin (Ecotrin) 81 mg PO DAILY [facility] Last Admin: 12/10/17 08:29 Dose: 81 mg Atorvastatin Calcium (Lipitor) 20 mg PO HS [facility] Last Admin: 12/10/17 21:34 Dose: 20 mg Calcitriol (Rocaltrol) 0.25 mcg PO DAILY [facility] Last Admin: 12/10/17 08:28 Dose: 0.25 mcg Cholecalciferol (Vitamin D) 1,000 intlu PO DAILY [facility] Last Admin: 12/10/17 08:27 Dose: 1,000 intlu Clonidine HCl (Catapres) 0.2 mg PO TID [facility] Last Admin: 12/10/17 16:53 Dose: Not Given Clopidogrel Bisulfate (Plavix) 75 mg PO DAILY [facility] Last Admin: 12/05/17 09:46 Dose: Not Given Diphenoxylate HCl/Atropine (Lomotil 0.025-2.5 Mg Tablet) 1 tab PO BID PRN PRN Reason: Diarrhea Epoetin Alexy (Procrit) 8,000 unit SC TTS [facility] Last Admin: 12/10/17 18:06 Dose: 8,000 unit Famotidine (Pepcid) 20 mg PO BID [facility] Last Admin: 12/10/17 16:56 Dose: 20 mg Glipizide (Glucotrol) 10 mg PO BIDAC [facility] Last Admin: 12/10/17 16:55 Dose: 10 mg Home Med (Patient's Own Medication) 8 unit SC HS [facility] Last Admin: 12/09/17 21:37 Dose: Not Given Ciprofloxacin (Cipro 200mg/100ml D5w) 100 mls @ 100 mls/hr IVPB Q12 [facility]; Protocol Metronidazole 250 mg/ (Miscellaneous) 50 mls @ 50 mls/hr IVPB Q8 [facility]; Protocol Last Admin: 12/10/17 21:33 Dose: 50 mls/hr Insulin Detemir (Levemir) 8 units SC HS [facility] Last Admin: 12/09/17 21:31 Dose: 8 units Insulin Human Lispro (Humalog) 0 units SC [facility]; Protocol Last Admin: 12/10/17 16:54 Dose: 3 unit Losartan Potassium (Cozaar) 50 mg PO DAILY [facility] Last Admin: 12/10/17 08:29 Dose: Not Given Sertraline HCl (Zoloft) 50 mg PO HS [facility] Last Admin: 12/09/17 21:30 Dose: 50 mg Sevelamer Carbonate (Renvela) 3,200 mg PO TIDWM [facility] Last Admin: 12/10/17 16:54 Dose: 3,200 mg Vitamin B Complex/Vit C/Folic Acid (Nephro-Jeff) 1 tab PO DAILY [facility] Last Admin: 12/10/17 08:28 Dose: 1 tab - Labs Labs: 12/08/17 05:10 12/08/17 05:10 PT 12.7 Seconds (9.8-13.1) 12/03/17 16:35 INR 1.1 12/03/17 16:35 APTT 33.7 Seconds (25.6-37.1) 12/03/17 16:35
--- NOTE | 2017-12-10 22:21 | PQF ---
PROVIDER RESPONSE TEXT: It is not known type of colitis. REVIEWER QUERY TEXT: Documentation Clarification Your help is requested in clarifying the following clinical documentation, if you can please further specify in the medical record and discharge summary the possible type of colitis if known. Labs: Salmonella H type A and B Equivocal. Placed on contact isolation Stool Culture: No salmonella, shigella or campylobacter isolated The patient's Clinical Indicators include: C Difficile Ag and Toxin negative. CMV Ig G Ab elevated at 2.20 CMV Ig M Ab <30( No antibody detected ) Rx: IVAB Query created by: Carole Sheets on 12/09/2017 9:44 AM Electronically signed by: Alverto Brower MD 12/10/2017 10:17 PM
[2017-12-10] MEDS: Insulin Detemir 100 Units/ml Inj SC SCH (22:41)
[2017-12-10] MEDS: INSULIN GLARGINE SC SCH (22:46)
[2017-12-10] MEDS: [UNRECOGNIZED DRUG - OTHER] SC SCH (22:46)
[2017-12-11] MEDS: metroNIDAZOLE 500mg/100ml NS 250 MG in Premixed IV 1 EA IVPB SCH ×3 (08:34→16:27)
[2017-12-11] MEDS: Insulin Lispro (humaLOG) 100 Units/ml Inj SC SCH ×4 (09:30→21:43)
[2017-12-11] MEDS: Multivitamin Vitamin B Complex (Nephro-Vite) Tab PO SCH (09:30)
[2017-12-11] MEDS: Cholecalciferol 1,000 INTLU TAB PO SCH (09:32)
--- NOTE | 2017-12-11 20:27 | PN ---
DATE: 12/11/2017 SUBJECTIVE: The patient denies any shortness of breath at this time. PHYSICAL EXAMINATION: VITAL SIGNS: Blood pressure 150/84, heart rate 62, temperature 98.4, respirations 18. HEENT: Normocephalic. CHEST: Clear. HEART: S1 and S2, regular. ABDOMEN: Soft. EXTREMITIES: 1+ pitting edema. LABORATORY DATA: Today's hemoglobin and hematocrit 10.1 and 31.5, white count was 4.9, platelet count 115,000. Today's blood sugars are 91 and 183 respectively. ASSESSMENT: 1. Cardiomyopathy. 2. End-stage renal disease, on hemodialysis. 3. Chronic atrial fibrillation. 4. Proctocolitis and diarrhea. RECOMMENDATIONS: Continue current clonidine 0.2 mg p.o. t.i.d. Continue IV Cipro 200 mg every 12 hours, Cozaar 50 mg once a day, glipizide 10 mg twice a day, Lipitor 20 mg once a day, Plavix 75 mg once a day. The patient will be kept n.p.o. after midnight and will be transferred to [facility] for cardiac catheterization with possible to PCI. The procedure and its risks were fully explained to the patient who understood and agreed for the procedure. Rylan Sauceda MD
[2017-12-11] MEDS: Insulin Detemir 100 Units/ml Inj SC SCH (21:42)
[2017-12-11] MEDS: INSULIN GLARGINE SC SCH (23:10)
[2017-12-11] MEDS: [UNRECOGNIZED DRUG - OTHER] SC SCH (23:10)
[2017-12-12] MEDS: metroNIDAZOLE 500mg/100ml NS 250 MG in Premixed IV 1 EA IVPB SCH ×3 (01:09→17:37)
[2017-12-12] MEDS: Insulin Lispro (humaLOG) 100 Units/ml Inj SC SCH ×4 (06:56→22:08)
--- NOTE | 2017-12-12 08:37 | PN ---
DATE: 12/10/2017 SUBJECTIVE: The patient was seen on 12/10/2017. OBJECTIVE: GENERAL: He was not in any cardiopulmonary distress. VITAL SIGNS: Blood pressure 136/73, temperature 97.2, respiratory rate 20, and pulse 64. HEENT: Slightly pale mucosa of the conjunctivae. NECK: Supple. No JVD. No carotid bruit. No lymph node. No thyromegaly. CHEST AND LUNGS: Bilateral symmetrical expansion. Good air exchange. No rales. No rhonchi. CARDIOVASCULAR SYSTEM: PMI not localized. S1 and S2. Irregularly irregular. ABDOMEN: Normoactive bowel sounds. No tenderness. No organomegaly. No masses. EXTREMITIES: No cyanosis. No clubbing. +1 edema. CENTRAL NERVOUS SYSTEM: Alert, awake, oriented x2. There is bilateral lower extremity weakness secondary to radiculopathy and peripheral neuropathy. ASSESSMENT: 1. Acute on chronic congestive heart failure both systolic and diastolic with ejection fraction of 20-25%. 2. Proctocolitis nonspecific that responded well to metronidazole and azithromycin was added by infectious disease engineering consultant. 3. Type 2 diabetes mellitus. 4. Hypertension. 5. Atrial fibrillation that was not tolerating anticoagulant. PLAN: The patient continue current medications and the patient is for a cardiac catheterization at [facility] within two days as recommended by Cardiology. Alverto Brower MD
[2017-12-12] MEDS: Multivitamin Vitamin B Complex (Nephro-Vite) Tab PO SCH (09:28)
[2017-12-12] MEDS: Cholecalciferol 1,000 INTLU TAB PO SCH (09:29)
--- NOTE | 2017-12-12 10:22 | CP.PCM.PN ---
Subjective - Date & Time of Evaluation Date of Evaluation: 12/12/17 Time of Evaluation: 10:22 - Subjective Subjective: ID note- Pt. seen and examined today. Pt. just returned from [facility] where he had his cardiac cath done and as per pt,. he was told no need for any stents. he also states he feels much better and that his diarrhea has resolved and he has formed stools and he denies any nausea , denies any fever. denies any bad. pain. Objective - Vital Signs/Intake and Output Vital Signs (last 24 hours): Temp Pulse Resp BP Pulse Ox 97.7 F 58 L 18 161/93 H 99 12/12/17 08:32 12/12/17 08:32 12/12/17 08:32 12/12/17 08:32 12/12/17 08:32 - Medications Medications: Current Medications Acetaminophen (Tylenol 325mg Tab) 650 mg PO Q6 PRN PRN Reason: Headache Last Admin: 12/10/17 19:00 Dose: 650 mg Alprazolam (Xanax) 0.5 mg PO HS [facility] Last Admin: 12/11/17 21:38 Dose: 0.5 mg Aspirin (Ecotrin) 81 mg PO DAILY [facility] Last Admin: 12/12/17 06:14 Dose: 81 mg Atorvastatin Calcium (Lipitor) 20 mg PO HS [facility] Last Admin: 12/11/17 21:38 Dose: 20 mg Calcitriol (Rocaltrol) 0.25 mcg PO DAILY [facility] Last Admin: 12/12/17 09:29 Dose: Not Given Cholecalciferol (Vitamin D) 1,000 intlu PO DAILY [facility] Last Admin: 12/12/17 09:29 Dose: Not Given Clonidine HCl (Catapres) 0.2 mg PO TID [facility] Last Admin: 12/12/17 09:27 Dose: Not Given Clopidogrel Bisulfate (Plavix) 75 mg PO DAILY [facility] Last Admin: 12/05/17 09:46 Dose: Not Given Diphenoxylate HCl/Atropine (Lomotil 0.025-2.5 Mg Tablet) 1 tab PO BID PRN PRN Reason: Diarrhea Epoetin Alexy (Procrit) 8,000 unit SC TTS [facility] Last Admin: 12/10/17 18:06 Dose: 8,000 unit Famotidine (Pepcid) 20 mg PO BID [facility] Last Admin: 12/12/17 09:28 Dose: Not Given Glipizide (Glucotrol) 10 mg PO BIDAC [facility] Last Admin: 12/12/17 09:28 Dose: Not Given Home Med (Patient's Own Medication) 8 unit SC [facility] Last Admin: 12/11/17 23:10 Dose: Not Given Ciprofloxacin (Cipro 200mg/100ml D5w) 100 mls @ 100 mls/hr IVPB Q12 [facility]; Protocol Metronidazole 250 mg/ (Miscellaneous) 50 mls @ 50 mls/hr IVPB Q8 [facility]; Protocol Last Admin: 12/12/17 09:28 Dose: Not Given Insulin Detemir (Levemir) 8 units SC [facility] Last Admin: 12/11/17 21:42 Dose: 8 units Insulin Human Lispro (Humalog) [address] [facility]; Protocol Last Admin: 12/12/17 06:56 Dose: Not Given Losartan Potassium (Cozaar) 50 mg PO DAILY [facility] Last Admin: 12/12/17 09:27 Dose: Not Given Sertraline HCl (Zoloft) 50 mg PO [facility] Last Admin: 12/11/17 21:38 Dose: 50 mg Sevelamer Carbonate (Renvela) 3,200 mg PO TIDWM [facility] Last Admin: 12/12/17 09:29 Dose: Not Given Vitamin B Complex/Vit C/Folic Acid (Nephro-Jeff) 1 tab PO DAILY [facility] Last Admin: 12/12/17 09:28 Dose: Not Given - Labs Labs: - Additional Findings Additional findings: - Constitutional Appears: No Acute Distress - Head Exam Head Exam: ATRAUMATIC - Eye Exam Eye Exam: EOMI - ENT Exam ENT Exam: Normal Oropharynx - Neck Exam Neck exam: Positive for: Full Rom - Respiratory Exam Respiratory Exam: Clear to Auscultation Bilateral, NORMAL BREATHING PATTERN - Cardiovascular Exam Cardiovascular Exam: RRR, +S1, +S2 - GI/Abdominal Exam GI & Abdominal Exam: Normal Bowel Sounds, Soft Additional comments: minimal distention but soft No tenderness to palpation No rebound, no guarding - Extremities Exam Additional comments: left hand with multiple distal digit amputations - Neurological Exam Neurological exam: Alert, Oriented x 3 Laboratory Results - last 72 hr 12/09/17 12/10/17 12/10/17 21:27 05:40 11:55 POC Glucose (mg/dL) 231 H 214 H 176 H Hep Bs Antigen Hep Bs Antibody Hep B Core IgM Ab 12/10/17 12/10/17 12/10/17 15:57 20:44 20:44 POC Glucose (mg/dL) 208 H Hep Bs Antigen Negative Hep Bs Antibody Positive Hep B Core IgM Ab Negative 12/10/17 12/11/17 12/11/17 21:44 06:19 11:13 POC Glucose (mg/dL) 224 H 91 183 H Hep Bs Antigen Hep Bs Antibody Hep B Core IgM Ab 12/11/17 12/11/17 12/12/17 16:28 21:11 04:56 POC Glucose (mg/dL) 147 H 189 H 205 H Hep Bs Antigen Hep Bs Antibody Hep B Core IgM Ab 12/12/17 16:41 POC Glucose (mg/dL) 59 L Hep Bs Antigen Hep Bs Antibody Hep B Core IgM Ab Microbiology 12/10/17 14:22 Stool Ova and Parasite Concentrate Exam - Final 12/10/17 14:22 Stool Stool Culture - Final NO SALMONELLA, SHIGELLA OR CAMPYLOBACTER ISOLATED. 12/03/17 20:45 Blood-Venous Blood Culture - Final NO GROWTH AFTER 5 DAYS 12/03/17 20:45 Blood-Venous Gram Stain - Final TEST NOT PERFORMED 12/03/17 20:30 Blood-Venous Blood Culture - Final NO GROWTH AFTER 5 DAYS 12/03/17 20:30 Blood-Venous Gram Stain - Final TEST NOT PERFORMED 12/03/17 20:30 Stool Stool Culture - Final NO SALMONELLA, SHIGELLA OR CAMPYLOBACTER ISOLATED. Assessment and Plan (1) Diarrhea Status: Acute (2) CKD (chronic kidney disease) requiring chronic dialysis Status: Acute (3) Proctocolitis Status: Acute - Assessment and Plan (Free Text) Assessment: A/P- 62 year old male with multiple comorbidities including ESRD On HD, DM II, A.fib, CVA in past, multiple digit amputations secondary to infections admitted with diarrhea. pt. is clinically much improved. diarrhea has resolved. CT was reported as ? proctocolitis. stool cx is negative for salmonella or shigella or campylobacterx 2 stool c.diff is also negative. stool O and P -negative salmonella serology 2 of the 5 serotypes are reported as equivoval type H type A and H type B. Widel test is not gold standard for diagnosis. plan- salmonella diagnosis is by stool culture and pt. has 2 negative stool cx. serology is usually not used for diagnosis as it can indicate past infection or exposure and this patient is afebrile with negative stool cx and negative blood cx. however, since he has multiple comorbidities and the Ct findings as above ,I advise to give azithromycin 500 mg po daily for 5 days, today is day #2. flagyl can be changed to po as well. pt. would most likely need to have colonoscopy as outpatient by [facility] for further evaluation. All above d/w patient and his who is at his bedside and they verbalize full understanding of all above and agrees with above plan of care.
[2017-12-12 11:21] LABS: HEPATITIS B SURFACE AG Negative (NEGATIVE)
[2017-12-12 11:26] LABS: HEPATITIS B CORE AB NEGATIVE (NEGATIVE)
--- NOTE | 2017-12-12 16:16 | CP.PCM.PN ---
Subjective - Date & Time of Evaluation Date of Evaluation: 12/12/17 Time of Evaluation: 16:15 - Subjective Subjective: RENAL consult for ESRD s; pt feels usual health. denies cp/sob/nausea/vomitting. labs and imaging reviewed pe: seen at [facility] after cath today vs as below gen: nad sclera: anicteric op clear neck: supple, no thyromegaly lungs cta b/l abd soft, no r/g, + bs no organomegaly ext: trace edema lle neuro: a+ox3 follows command psych: nml affect skin: bit browne on tips of fingers imp: ESRD / diarrhea/ Anemia of Renal Disease/ Hypertensive Kidney disease/ Secondary hyperparathyroid/ Hyperphosphatemia/CHF/proctocolitis/sev pHTN Plan HD TTS, plan for HD tomorrow, no acute need today appreciate GI and ID evaluation on renvela : continue same continue calcitriol continue epogen continue home bp meds had cardiac cath today d/w RN and Objective - Vital Signs/Intake and Output Vital Signs (last 24 hours): Temp Pulse Resp BP Pulse Ox 97.7 F 58 L 18 161/93 H 99 12/12/17 08:32 12/12/17 08:32 12/12/17 08:32 12/12/17 08:32 12/12/17 08:32 - Medications Medications: Current Medications Acetaminophen (Tylenol 325mg Tab) 650 mg PO Q6 PRN PRN Reason: Headache Last Admin: 12/10/17 19:00 Dose: 650 mg Alprazolam (Xanax) 0.5 mg PO HS [facility] Last Admin: 12/11/17 21:38 Dose: 0.5 mg Aspirin (Ecotrin) 81 mg PO DAILY [facility] Last Admin: 12/12/17 06:14 Dose: 81 mg Atorvastatin Calcium (Lipitor) 20 mg PO HS [facility] Last Admin: 12/11/17 21:38 Dose: 20 mg Azithromycin (Zithromax) 500 mg PO DAILY [facility]; Protocol Calcitriol (Rocaltrol) 0.25 mcg PO DAILY [facility] Last Admin: 12/12/17 09:29 Dose: Not Given Cholecalciferol (Vitamin D) 1,000 intlu PO DAILY [facility] Last Admin: 12/12/17 09:29 Dose: Not Given Clonidine HCl (Catapres) 0.2 mg PO TID [facility] Last Admin: 12/12/17 12:56 Dose: Not Given Clopidogrel Bisulfate (Plavix) 75 mg PO DAILY [facility] Last Admin: 12/05/17 09:46 Dose: Not Given Diphenoxylate HCl/Atropine (Lomotil 0.025-2.5 Mg Tablet) 1 tab PO BID PRN PRN Reason: Diarrhea Epoetin Alexy (Procrit) 8,000 unit SC TTS [facility] Last Admin: 12/10/17 18:06 Dose: 8,000 unit Famotidine (Pepcid) 20 mg PO BID [facility] Last Admin: 12/12/17 09:28 Dose: Not Given Glipizide (Glucotrol) 10 mg PO BIDAC [facility] Last Admin: 12/12/17 09:28 Dose: Not Given Home Med (Patient's Own Medication) 8 unit SC [facility] Last Admin: 12/11/17 23:10 Dose: Not Given Metronidazole 250 mg/ (Miscellaneous) 50 mls @ 50 mls/hr IVPB Q8 [facility]; Protocol Last Admin: 12/12/17 09:28 Dose: Not Given Insulin Detemir (Levemir) 8 units SC [facility] Last Admin: 12/11/17 21:42 Dose: 8 units Insulin Human Lispro (Humalog) 0 units SC [facility]; Protocol Last Admin: 12/12/17 12:56 Dose: Not Given Losartan Potassium (Cozaar) 50 mg PO DAILY [facility] Last Admin: 12/12/17 09:27 Dose: Not Given Sertraline HCl (Zoloft) 50 mg PO [facility] Last Admin: 12/11/17 21:38 Dose: 50 mg Sevelamer Carbonate (Renvela) 3,200 mg PO TIDWM [facility] Last Admin: 12/12/17 12:56 Dose: Not Given Vitamin B Complex/Vit C/Folic Acid (Nephro-Jeff) 1 tab PO DAILY [facility] Last Admin: 12/12/17 09:28 Dose: Not Given - Labs Labs: 12/08/17 05:10 12/08/17 05:10 PT 12.7 Seconds (9.8-13.1) 12/03/17 16:35 INR 1.1 12/03/17 16:35 APTT 33.7 Seconds (25.6-37.1) 12/03/17 16:35
[2017-12-12] MEDS: [UNRECOGNIZED DRUG - OTHER] SC SCH (22:00)
[2017-12-12] MEDS: INSULIN GLARGINE SC SCH (22:00)
[2017-12-12] MEDS: Insulin Detemir 100 Units/ml Inj SC SCH (22:11)
--- NOTE | 2017-12-12 23:30 | PN ---
DATE: 12/12/2017 SUBJECTIVE: The patient is seen and examined with daughter and at the bedside. He has no new complaints. Telemetry review shows atrial fibrillation with normal ventricular response, occasional bradycardia in the 50s, PVCs are noted. PHYSICAL EXAMINATION: GENERAL: He is a well-developed, well-nourished male, in no acute distress. VITAL SIGNS: Blood pressure is 150/84, heart rate of 62, temperature of 98.7. HEENT: His head is normocephalic, atraumatic. CHEST: Clear to auscultation bilaterally. CARDIOVASCULAR EXAM: Regular rate and rhythm. S1, S2. No S3 or S4. PMI is difficult to appreciate. ABDOMEN: Soft, nontender, nondistended. Positive bowel sounds. EXTREMITIES: With loss of proximal digits in his hands. No cyanosis or clubbing. 1+ lower extremity edema is noted. LABORATORY DATA: Today, his lab work has been reviewed. ASSESSMENT AND PLAN: 1. Dilated cardiomyopathy with at this point longstanding dilated cardiomyopathy. The patient is for cardiac catheterization and reevaluation of ejection fraction. If there is any interventional targets, the patient may be a candidate for watchful waiting and maximization of medical therapy. Heart rate do limit beta-nury therapy. 2. Atrial fibrillation, which at this point appears to be chronic. Anticoagulation is to be decided upon. There is some controversy in anticoagulation in dialysis patients. 3. Pulmonary hypertension. I will discuss the case further with managing medical and cardiac team after results of cardiac catheterization are known. The patient was seen at 9:30 a.m. this morning. Win Lopez MD
[2017-12-13] MEDS: metroNIDAZOLE 500mg/100ml NS 250 MG in Premixed IV 1 EA IVPB SCH ×3 (00:46→17:55)
[2017-12-13 05:29] LABS: HEMOGLOBIN 10.3 g/dL (12.0-18.0); MEAN CELL VOLUME 98.4 fl (80.0-94.0); MEAN CORPUSCULAR HEMOGLOBIN 31.5 pg (27.0-31.0); RBC 3.28 Mil/uL (4.40-5.90); RED CELL DISTRIBUTION WIDTH 17.4 % (11.5-14.5); WHITE BLOOD COUNT 4.1 K/uL (4.8-10.8)
[2017-12-13 05:41] LABS: CALCIUM 8.7 mg/dL (8.4-10.2)
[2017-12-13] MEDS: Insulin Lispro (humaLOG) 100 Units/ml Inj SC SCH ×6 (07:03→22:14)
[2017-12-13] MEDS: Multivitamin Vitamin B Complex (Nephro-Vite) Tab PO SCH (09:41)
[2017-12-13] MEDS: Cholecalciferol 1,000 INTLU TAB PO SCH (09:42)
--- NOTE | 2017-12-13 10:35 | CP.PCM.PN ---
Subjective - Date & Time of Evaluation Date of Evaluation: 12/13/17 Time of Evaluation: 10:34 - Subjective Subjective: dialysis note he was seen on hemodialysis now Patient tolerating very well hemodialysis Vital signs stable No chest pain no shortness of breath Objective - Vital Signs/Intake and Output Vital Signs (last 24 hours): Temp Pulse Resp BP Pulse Ox 98.0 F 63 20 119/75 95 12/13/17 08:27 12/13/17 08:27 12/13/17 08:27 12/13/17 08:27 12/13/17 08:27 - Medications Medications: Current Medications Acetaminophen (Tylenol 325mg Tab) 650 mg PO Q6 PRN PRN Reason: Headache Last Admin: 12/10/17 19:00 Dose: 650 mg Alprazolam (Xanax) 0.5 mg PO HS [facility] Last Admin: 12/12/17 22:10 Dose: 0.5 mg Aspirin (Ecotrin) 81 mg PO DAILY [facility] Last Admin: 12/13/17 09:44 Dose: 81 mg Atorvastatin Calcium (Lipitor) 20 mg PO HS [facility] Last Admin: 12/12/17 22:10 Dose: 20 mg Azithromycin (Zithromax) 500 mg PO DAILY [facility]; Protocol Last Admin: 12/13/17 09:42 Dose: 500 mg Calcitriol (Rocaltrol) 0.25 mcg PO DAILY [facility] Last Admin: 12/13/17 09:42 Dose: 0.25 mcg Cholecalciferol (Vitamin D) 1,000 intlu PO DAILY [facility] Last Admin: 12/13/17 09:42 Dose: 1,000 intlu Clonidine HCl (Catapres) 0.2 mg PO TID [facility] Last Admin: 12/13/17 09:41 Dose: Not Given Clopidogrel Bisulfate (Plavix) 75 mg PO DAILY [facility] Last Admin: 12/05/17 09:46 Dose: Not Given Diphenoxylate HCl/Atropine (Lomotil 0.025-2.5 Mg Tablet) 1 tab PO BID PRN PRN Reason: Diarrhea Epoetin Alexy (Procrit) 8,000 unit SC TTS [facility] Last Admin: 12/10/17 18:06 Dose: 8,000 unit Famotidine (Pepcid) 20 mg PO BID [facility] Last Admin: 12/13/17 09:41 Dose: 20 mg Glipizide (Glucotrol) 10 mg PO BIDAC [facility] Last Admin: 12/13/17 09:43 Dose: 10 mg Home Med (Patient's Own Medication) 8 unit SC [facility] Last Admin: 12/12/17 22:00 Dose: Not Given Metronidazole 250 mg/ (Miscellaneous) 50 mls @ 50 mls/hr IVPB Q8 [facility]; Protocol Last Admin: 12/13/17 09:44 Dose: 50 mls/hr Insulin Detemir (Levemir) 8 units SC [facility] Last Admin: 12/12/17 22:11 Dose: 8 units Insulin Human Lispro (Humalog) 0 units SC [facility]; Protocol Last Admin: 12/13/17 07:03 Dose: 2 unit Losartan Potassium (Cozaar) 50 mg PO DAILY [facility] Last Admin: 12/12/17 09:27 Dose: Not Given Sertraline HCl (Zoloft) 50 mg PO [facility] Last Admin: 12/12/17 22:10 Dose: 50 mg Sevelamer Carbonate (Renvela) 3,200 mg PO TIDWM [facility] Last Admin: 12/13/17 09:40 Dose: 3,200 mg Vitamin B Complex/Vit C/Folic Acid (Nephro-Jeff) 1 tab PO DAILY [facility] Last Admin: 12/13/17 09:41 Dose: 1 tab - Labs Labs: 12/13/17 05:15 12/13/17 05:15 PT 12.7 Seconds (9.8-13.1) 12/03/17 16:35 INR 1.1 12/03/17 16:35 APTT 33.7 Seconds (25.6-37.1) 12/03/17 16:35 - Constitutional Appears: No Acute Distress - Eye Exam Eye Exam: Conjunctival injection - ENT Exam ENT Exam: Mucous Membranes Moist - Neck Exam Neck Exam: absent: Lymphadenopathy - Respiratory Exam Respiratory Exam: NORMAL BREATHING PATTERN. absent: Chest Wall Tenderness, Rhonchi - Cardiovascular Exam Cardiovascular Exam: Irregular Rhythm. absent: Gallop, Rubs - GI/Abdominal Exam GI & Abdominal Exam: Soft, Normal Bowel Sounds - Extremities Exam Extremities Exam: Calf Tenderness - Back Exam Back Exam: absent: CVA tenderness (L), CVA tenderness (R) - Neurological Exam Neurological Exam: Alert - Psychiatric Exam Psychiatric exam: Normal Affect - Skin Skin Exam: absent: Cyanosis Assessment and Plan - Assessment and Plan (Free Text) Assessment: imp: ESRD / diarrhea/ Anemia of Renal Disease/ Hypertensive Kidney disease/ Secondary hyperparathyroid/ Hyperphosphatemia/CHF/proctocolitis/sev pHTN Plan hemodialysis and progress patient was seen on hemodialysis and discuss with the dialysis nurse at the bedside. Patient tolerating very well hemodialysis vital sign noted to be stable appreciate GI and ID evaluation on renvela : continue same continue calcitriol continue epogen continue home bp meds had cardiac cath yesterday chronic atrial fibrillation with ventricular rate controlled
--- NOTE | 2017-12-13 11:54 | PN ---
DATE: 12/12/2017 SUBJECTIVE: The patient was found to have ejection fraction of 40% with no obstructing coronary artery disease in the cardiac cath done on December 12, 2017. The patient tolerated the procedure well. PHYSICAL EXAMINATION: VITAL SIGNS: Blood pressure 161/93, temperature 98.4, respiratory rate 20 and pulse 70. HEENT: Normal-appearing mucosa of the conjunctivae. No oropharynx or exudation NECK: Supple. No JVD. No carotid bruit. No lymph node. No thyromegaly. CHEST AND LUNGS: Bilateral symmetrical expansion. Good air exchange. No rales. No rhonchi. CARDIOVASCULAR: PMI not localized. S1 and S2. Irregularly irregular. ABDOMEN: Normoactive bowel sounds. No tenderness. No organomegaly. No masses. EXTREMITIES: No cyanosis, no clubbing, no edema. PUBLIC INFORMATION RELATIONS MANAGER: Alert, awake, oriented x2 and the patient has bilateral lower extremity weakness, right more than left secondary to radiculopathy and peripheral neuropathy. ASSESSMENT: 1. Proctocolitis with diarrhea that has been responding to metronidazole treatment. 2. Congestive heart failure both systolic and diastolic, chronic. 3. Hypertension. 4. Type 2 diabetes mellitus with hyperglycemia. 5. Diabetic retinopathy. 6. Atrial fibrillation was controlled, ventricular rate did not tolerate anticoagulation. 7. End-stage renal disease on hemodialysis. PLAN: We will continue physical therapy and plan to discharge to subacute rehabilitation if the patient's insurance will authorize and continue current medications and renal replacement therapy of hemodialysis. Alverto Brower MD
[2017-12-13] MEDS: Epoetin Alfa 20000 UNIT/ML Inj SC SCH (13:00)
[2017-12-13] MEDS ORDERED: Dextrose 50% SYRINGE Inj (50 ml) IVP ONE (14:28)
--- NOTE | 2017-12-13 17:19 | PN ---
DATE: 12/13/2017 SUBJECTIVE: The patient is currently undergoing hemodialysis. He denies chest pain. No reports of groin bleeding. PHYSICAL EXAMINATION: VITAL SIGNS: Blood pressure 119/75, heart rate 63, temperature 98, respirations 20. HEENT: Normocephalic. CHEST: Clear. HEART: S1 and S2 irregular. EXTREMITIES: 1+ pitting edema. LABORATORY DATA: Today's hemoglobin and hematocrit 10.3 and 32.3, white count 4.1, platelet count 72,000. Today's SMA-7 prior to initiating hemodialysis: Sodium 137, potassium 5.9, chloride 98, CO2 of 23, glucose 155, BUN 82, creatinine 8.5. ASSESSMENT: 1. Systolic heart failure. 2. Chronic atrial fibrillation. 3. End-stage renal disease, on hemodialysis. 4. Uncontrolled diabetes mellitus. 5. Proctocolitis. 6. Peripheral neuropathy. 7. Worsening thrombocytopenia. RECOMMENDATIONS: Continue aspirin 81 mg once a day, Lipitor 20 mg once a day, oral Zithromax 500 mg daily. Discontinue Plavix and initiate Eliquis if there is no contraindication. Rylan Sauceda MD
--- NOTE | 2017-12-13 18:36 | CARD ---
APPROVED REPORT Date of service: 12/13/2017 EKG Measurement Heart [id number] <Conclusion> Atrial fibrillation Left axis deviation Low voltage QRS Abnormal ECG
[2017-12-13] MEDS: Insulin Detemir 100 Units/ml Inj SC SCH (22:14)
[2017-12-13] MEDS: INSULIN GLARGINE SC SCH (22:15)
[2017-12-13] MEDS: [UNRECOGNIZED DRUG - OTHER] SC SCH (22:15)
[2017-12-14] MEDS: metroNIDAZOLE 500mg/100ml NS 250 MG in Premixed IV 1 EA IVPB SCH ×2 (00:23→08:50)
--- NOTE | 2017-12-14 03:23 | PN ---
DATE: 12/13/2017 DAILY PROGRESS NOTE SUBJECTIVE: The patient is seen today, 12/13/2017. He is not in any cardiopulmonary distress. PHYSICAL EXAMINATION: VITAL SIGNS: Blood pressure 116/82, temperature 97.7, respiratory rate 20, and pulse 56. NECK: Supple. No JVD. No carotid bruits. No lymph node. No thyromegaly. CHEST AND LUNGS: Bilateral symmetrical expansion. Good air exchange. No rales. No rhonchi. CARDIOVASCULAR SYSTEM: PMI not localized. S1 and S2. No additional sounds. ABDOMEN: Normoactive bowel sounds. No tenderness. No organomegaly. No masses. EXTREMITIES: No cyanosis. No clubbing. No edema. CENTRAL NERVOUS SYSTEM: Alert, awake, and oriented x2 and has bilateral lower extremity weakness, right more than left. ASSESSMENT: 1. End-stage renal disease, on hemodialysis. 2. Proctocolitis, which is resolving with current metronidazole. 3. Hypertension. 4. Type 2 diabetes mellitus. 5. Degenerative spine disease with radiculopathy. PLAN: Continue current medications, physical therapy and plan to discharge to subacute rehabilitation. Alverto Brower MD
[2017-12-14 05:14] VITALS: RESP 20
[2017-12-14] MEDS: Insulin Lispro (humaLOG) 100 Units/ml Inj SC SCH ×2 (08:49→13:04)
[2017-12-14] MEDS: Multivitamin Vitamin B Complex (Nephro-Vite) Tab PO SCH (08:51)
[2017-12-14] MEDS: Cholecalciferol 1,000 INTLU TAB PO SCH (08:51)
[2017-12-14 08:53] VITALS: PULSE 65
[2017-12-14 12:26] VITALS: BP 152/86
[2017-12-14 13:02] VITALS: TEMP 97.9; O2SAT 98
--- NOTE | 2017-12-14 13:49 | CP.PCM.PN ---
Subjective - Date & Time of Evaluation Date of Evaluation: 12/14/17 Time of Evaluation: 13:47 - Subjective Subjective: patient awake and conscious feeling much better Vital signs stable No nausea or vomiting Objective - Vital Signs/Intake and Output Vital Signs (last 24 hours): Temp Pulse Resp BP Pulse Ox 97.9 F 65 20 152/86 H 98 12/14/17 09:00 12/14/17 12:25 12/14/17 09:00 12/14/17 12:25 12/14/17 09:00 - Medications Medications: Current Medications Acetaminophen (Tylenol 325mg Tab) 650 mg PO Q6 PRN PRN Reason: Headache Last Admin: 12/10/17 19:00 Dose: 650 mg Alprazolam (Xanax) 0.5 mg PO HS [facility] Last Admin: 12/13/17 22:12 Dose: 0.5 mg Aspirin (Ecotrin) 81 mg PO DAILY [facility] Last Admin: 12/14/17 08:50 Dose: 81 mg Atorvastatin Calcium (Lipitor) 20 mg PO HS [facility] Last Admin: 12/13/17 22:12 Dose: 20 mg Azithromycin (Zithromax) 500 mg PO DAILY [facility]; Protocol Last Admin: 12/14/17 08:52 Dose: 500 mg Calcitriol (Rocaltrol) 0.25 mcg PO DAILY [facility] Last Admin: 12/14/17 08:52 Dose: 0.25 mcg Cholecalciferol (Vitamin D) 1,000 intlu PO DAILY [facility] Last Admin: 12/14/17 08:51 Dose: 1,000 intlu Clonidine HCl (Catapres) 0.2 mg PO TID [facility] Last Admin: 12/14/17 12:25 Dose: 0.2 mg Clopidogrel Bisulfate (Plavix) 75 mg PO DAILY [facility] Last Admin: 12/05/17 09:46 Dose: Not Given Diphenoxylate HCl/Atropine (Lomotil 0.025-2.5 Mg Tablet) 1 tab PO BID PRN PRN Reason: Diarrhea Epoetin Alexy (Procrit) 8,000 unit SC TTS [facility] Last Admin: 12/13/17 13:00 Dose: 8,000 unit Famotidine (Pepcid) 20 mg PO BID [facility] Last Admin: 12/14/17 08:51 Dose: 20 mg Glipizide (Glucotrol) 10 mg PO BIDAC [facility] Last Admin: 12/14/17 08:49 Dose: 10 mg Home Med (Patient's Own Medication) [address] [facility] Last Admin: 12/13/17 22:15 Dose: Not Given Metronidazole 250 mg/ (Miscellaneous) 50 mls @ 50 mls/hr IVPB Q8 [facility]; Protocol Last Admin: 12/14/17 08:50 Dose: 50 mls/hr Insulin Detemir (Levemir) [address] [facility] Last Admin: 12/13/17 22:14 Dose: 8 units Insulin Human Lispro (Humalog) 0 units SC [facility]; Protocol Last Admin: 12/14/17 13:04 Dose: Not Given Losartan Potassium (Cozaar) 50 mg PO DAILY [facility] Last Admin: 12/14/17 08:50 Dose: 50 mg Sertraline HCl (Zoloft) [address] [facility] Last Admin: 12/13/17 22:13 Dose: 50 mg Sevelamer Carbonate (Renvela) 3,200 mg PO TIDWM [facility] Last Admin: 12/14/17 12:25 Dose: 3,200 mg Vitamin B Complex/Vit C/Folic Acid (Nephro-Jeff) 1 tab PO DAILY [facility] Last Admin: 12/14/17 08:51 Dose: 1 tab - Labs Labs: 12/13/17 05:15 12/13/17 05:15 PT 12.7 Seconds (9.8-13.1) 12/03/17 16:35 INR 1.1 12/03/17 16:35 APTT 33.7 Seconds (25.6-37.1) 12/03/17 16:35 - Constitutional Appears: No Acute Distress - Eye Exam Eye Exam: Conjunctival injection - ENT Exam ENT Exam: Mucous Membranes Moist - Neck Exam Neck Exam: absent: Lymphadenopathy - Respiratory Exam Respiratory Exam: NORMAL BREATHING PATTERN. absent: Chest Wall Tenderness - Cardiovascular Exam Cardiovascular Exam: Irregular Rhythm. absent: Gallop, JVD, Rubs - GI/Abdominal Exam GI & Abdominal Exam: Soft, Normal Bowel Sounds - Extremities Exam Extremities Exam: absent: Calf Tenderness - Back Exam Back Exam: absent: CVA tenderness (L), CVA tenderness (R) - Neurological Exam Neurological Exam: Alert - Psychiatric Exam Psychiatric exam: Normal Affect - Skin Skin Exam: absent: Cyanosis Assessment and Plan - Assessment and Plan (Free Text) Assessment: imp: ESRD / diarrhea/ Anemia of Renal Disease/ Hypertensive Kidney disease/ Secondary hyperparathyroid/ Hyperphosphatemia/CHF/proctocolitis/sev pHTN Plan hemodialysis TTS Patient tolerating very well hemodialysis vital sign noted to be stable appreciate GI and ID evaluation on renvela : continue same continue calcitriol continue epogen continue home bp meds had cardiac cath yesterday chronic atrial fibrillation with ventricular rate controlled
--- NOTE | 2017-12-14 19:23 | PN ---
DATE: 12/14/2017 SUBJECTIVE: The patient denies any problem breathing or shortness of breath. PHYSICAL EXAMINATION VITAL SIGNS: Blood pressure 152/86, heart rate 65, temperature 97.9, respirations 20. HEENT: Normocephalic. CHEST: Clear. HEART: S1 and S2 regular. EXTREMITIES: 1+ edema. LABORATORY DATA: Today's blood sugars 111 and 167. ASSESSMENT: 1. Systolic heart failure. 2. End-stage renal disease, on hemodialysis. 3. Chronic atrial fibrillation. 4. Non-critical coronary artery disease. 5. Systemic hypertension. RECOMMENDATIONS: Continue clonidine 0.2 mg t.i.d., Cozaar 50 mg once a day, aspirin 81 mg once a day, Lipitor 20 mg once a day, Plavix 75 mg once a day, Zithromax 500 mg orally daily. The patient was in the past on Coumadin therapy; however, because of recurrent falls, it was discontinued and the patient was placed on aspirin and Plavix instead for his atrial fibrillation. Rylan Sauceda MD
== END 2017-12-14 14:00 | DRG 391 ==
LOC: H.ER 16:00 → H.ERHOLD 20:11 → OBSVTOIN 12-04 15:24 → H.TEL 12-04 16:59
PROVIDERS: ADMIT Internal Medicine; ATTEND Internal Medicine
PROC: 5A1D70Z Performance of Urinary Filtration, Intermittent, Less than 6 Hours Per Day (ICD-10-PCS; 2017-12-06)
PROC: 4A023N7 Measurement of Cardiac Sampling and Pressure, Left Heart, Percutaneous Approach (ICD-10-PCS; principal; 2017-12-12)
PROC: B206YZZ Plain Radiography of Right and Left Heart using Other Contrast (ICD-10-PCS; 2017-12-12)
DX: K52.9 Noninfective gastroenteritis and colitis, unspecified (principal); N18.6 End stage renal disease; I50.43 Acute on chronic combined systolic (congestive) and diastolic (congestive) heart failure; N25.81 Secondary hyperparathyroidism of renal origin; I13.2 Hypertensive heart and chronic kidney disease with heart failure and with stage 5 chronic kidney disease, or end stage renal disease; I42.0 Dilated cardiomyopathy; R18.8 Other ascites; I48.0 Paroxysmal atrial fibrillation; E11.649 Type 2 diabetes mellitus with hypoglycemia without coma; Z99.2 Dependence on renal dialysis; D69.6 Thrombocytopenia, unspecified; K74.60 Unspecified cirrhosis of liver; E11.22 Type 2 diabetes mellitus with diabetic chronic kidney disease; E11.42 Type 2 diabetes mellitus with diabetic polyneuropathy; D63.1 Anemia in chronic kidney disease; E11.51 Type 2 diabetes mellitus with diabetic peripheral angiopathy without gangrene; E11.65 Type 2 diabetes mellitus with hyperglycemia; E86.0 Dehydration; E11.319 Type 2 diabetes mellitus with unspecified diabetic retinopathy without macular edema; I48.2 Chronic atrial fibrillation; I27.20 Pulmonary hypertension, unspecified; E83.39 Other disorders of phosphorus metabolism; R16.2 Hepatomegaly with splenomegaly, not elsewhere classified; E78.5 Hyperlipidemia, unspecified; E78.00 Pure hypercholesterolemia, unspecified; I25.10 Atherosclerotic heart disease of native coronary artery without angina pectoris; M54.17 Radiculopathy, lumbosacral region; F41.9 Anxiety disorder, unspecified; K21.9 Gastro-esophageal reflux disease without esophagitis; G47.30 Sleep apnea, unspecified; R29.6 Repeated falls; Z86.14 Personal history of Methicillin resistant Staphylococcus aureus infection; Z89.022 Acquired absence of left finger(s); Z88.0 Allergy status to penicillin; Z88.1 Allergy status to other antibiotic agents; Z86.73 Personal history of transient ischemic attack (TIA), and cerebral infarction without residual deficits; Z87.01 Personal history of pneumonia (recurrent); Z87.440 Personal history of urinary (tract) infections; Z79.01 Long term (current) use of anticoagulants; Z86.010 Personal history of colon polyps

== ENCOUNTER 2018-05-16 15:58 | Inpatient (IN) | payer MEDICARE ==
[2018-05-16 15:58] VITALS: PULSE 66
--- NOTE | 2018-05-16 17:49 | RAD ---
Date of service: 05/16/2018 Indication: L 4th digit osteomyelitis Three views, left hand radiographs Comparison: Left thumb radiographs performed 01/29/17 Findings: No acute displaced fracture or dislocation identified. Prior amputation of the 5th digit at the level of the proximal metacarpal and 2nd digit at the middle phalanx. Osseous destruction/deformity of the distal 3rd and 4th digits. Dense vascular calcifications. Metallic coils in the soft tissues of the distal forearm. Lucency at the base of the 2nd metacarpal of unclear etiology. Impression: Soft tissue swelling. Erosion/deformities of the distal 3rd and 4th digits. Lucency at the base of the 2nd metacarpal of unclear etiology. Changes related to osteomyelitis suspected. Correlate clinically. Suggest further evaluation with MRI without and with IV contrast if indicated. Prior amputation of the 5th and 2nd digits as above.
[2018-05-16 18:05] LABS: EOS # 0.1 K/uL (0.0-0.7); HEMOGLOBIN 11.5 g/dL (12.0-18.0); LYMPH # 0.8 K/uL (1.0-4.3); LYMPH % 19.8 % (20.0-40.0); MEAN CELL VOLUME 101.3 fl (80.0-94.0); MEAN CORPUSCULAR HEMOGLOBIN 33.8 pg (27.0-31.0); MEAN CORPUSCULAR HGB CONC 33.4 g/dL (33.0-37.0); MEAN PLATELET VOLUME 8.1 fl (7.2-11.7); MONO # 0.3 K/uL (0.0-0.8); MONO % 8.5 % (0.0-10.0); NEUT # 2.6 K/uL (1.8-7.0); NEUT % 67.7 % (50.0-75.0); NRBC % 0.1 % (0.0-0.0); RBC 3.39 Mil/uL (4.40-5.90); RED CELL DISTRIBUTION WIDTH 15.3 % (11.5-14.5); WHITE BLOOD COUNT 3.9 K/uL (4.8-10.8)
--- NOTE | 2018-05-16 18:14 | CP.PCM.CON ---
History of Present Illness - History of Present Illness History of Present Illness: Infectious Disease Consultation Note- HPI- Patient is a year old male well known to me who is admitted for treatment of his left fourth thumb Osteomyelitis. Patient has PMH of DM II, ESRD On HD, and neuropathy and multiple digit ampu tations secondary to infections and OM ( mostly MRSA) because he tends to bite his fingernails in the past. Pt. has been doing ok and was on IV vancomycin for last 2-3 weeks as per his PMD at [facility] for treatment of left fourth thumb stump infection and pt. came to see me in the office after he was d./c from [facility] . he informed me that there was no more discharge from his left thumb infection site and the wound had healed up and that he was going to f/u with his plastics surgeon . had advised patient to hold off on any more antibiotics pending bone biopsy and bone culture by . pt. saw his plastics doctor early april and he followed up with me last week and the bone biopsy and bone culture report grew K.Oxytoca sensitive to all carbapenems and ceftriaxone. Since pt. has h/o PCN allergy advised to start IV ertapenem once a day since low chance of cross reactivity with carbapenem. Unfortunately the dialysis center does not provide carbapenems and hence pt. was advised to come to hospital to get picc line and start IV antibiotics here which the patient and his both agreed to. Patient states he feels fine today , he just states he had one episode of diarrhea. denies any rash or itching. denies any sob, denies any chest pain P Review of Systems - Review of Systems Review of Systems: ROS- denies anyh fever or chills, denies any TAPIA, denies any cough, denies any sob, denies any bad. pain, denies any nausea or vomiting, + diarrhea x once today,left fourth finger no discharge, minimal edema and erythema Past Patient History - Infectious Disease Hx of Infectious Diseases: None - Past Medical History & Family History Past Medical History?: Yes - Past Social History Smoking Status: Never Smoked Home Situation {Lives}: With Family - CARDIAC Hx Atrial Fibrillation: Yes Hx Cardia Arrhythmia: Yes Hx Congestive Heart Failure: Yes Hx Hypercholesterolemia: Yes Hx Hypertension: Yes - PULMONARY Hx Chronic Obstructive Pulmonary Disease (COPD): No Hx Pneumonia: Yes Hx Sleep Apnea: Yes - NEUROLOGICAL Hx Transient Ischemic Attacks (TIA): Yes (2010) - HEENT Hx HEENT Problems: Yes (RETINOPATHY/CATARACT) - RENAL Hx Chronic Kidney Disease: Yes - ENDOCRINE/METABOLIC Hx Diabetes Mellitus Type 2: Yes Hx Hypothyroidism: No - HEMATOLOGICAL/ONCOLOGICAL Hx Anemia: Yes - INTEGUMENTARY Hx Dermatological Problems: Yes - MUSCULOSKELETAL/RHEUMATOLOGICAL Hx Arthritis: Yes Hx Falls: Yes Hx Fractures: Yes (Right foot surgery) Hx Rheumatoid Arthritis: No - GASTROINTESTINAL Hx Gastrointestinal Disorders: Yes Hx Gastroesophageal Reflux: Yes Other/Comment: CONSTIPATION. ELEVATED LFTS. HEPATIC CIRRHOISIS - GENITOURINARY/GYNECOLOGICAL Hx Genitourinary Disorders: Yes - PSYCHIATRIC Hx Anxiety: Yes Hx Depression: Yes Hx Substance Use: No - SURGICAL HISTORY Hx Surgeries: Yes Hx Amputation: Yes (AMPUTATION OF LEFT HAND 1ST AND 4TH DIGIT) Hx Cataract Extraction: Yes (L eye) Hx Cardiac Catheterization: Yes Hx Eye Surgery: Yes (RETINOPATHY ) Hx Musculoskeletal Surgery: Yes (LUMBAR SPINE SX 2002) Hx Orthopedic Surgery: Yes (RUBI BREAK RIGHT FOOT 2012 SCREW AND METAL PLATES PLACED) Hx Vascular Surgery: Yes (AV FISTULA RIGHT FORE ARM) Hx Vascular Access Device: Yes (l avf) Other/Comment: PENILE CIRCUMCISION 08/27/16. LEFT HAND 1ST AND FOURTH DIGIT AMPUTATION 2016 - ANESTHESIA Hx Anesthesia: Yes Hx Anesthesia Reactions: Yes (PROPOFOL (CARDIAC ARREST)) Hx Malignant Hyperthermia: No Meds Allergies/Adverse Reactions: Allergies Allergy/AdvReac Type Severity Reaction Status Date / Time ciprofloxacin Allergy SWELLING Verified 06/21/17 10:25 Penicillins Allergy ANAPHYLAXIS Verified 06/21/17 10:25 propofol Allergy ANAPHYLAXIS Verified 06/21/17 10:25 vitamin K2 Allergy SHORTNESS Verified 06/21/17 10:25 OF BREATH diphenhydramine HCl AdvReac ITCHING Verified 06/21/17 10:25 [From Benadryl] surgical tape Allergy REDNESS Uncoded 06/21/17 10:25 - Medications Medications: Current Medications Ertapenem 1 gm/ Sodium (Chloride) 100 mls @ 100 mls/hr IVPB DAILY GRISELDA; Protocol Physical Exam - Constitutional Appears: No Acute Distress - Head Exam Head Exam: ATRAUMATIC - Eye Exam Eye Exam: EOMI, PERRL - ENT Exam ENT Exam: Normal Oropharynx - Neck Exam Neck exam: Positive for: Full Rom - Respiratory Exam Respiratory Exam: Clear to Auscultation Bilateral, NORMAL BREATHING PATTERN - Cardiovascular Exam Cardiovascular Exam: RRR, +S1, +S2 - GI/Abdominal Exam GI & Abdominal Exam: Normal Bowel Sounds, Soft Additional comments: NT, ND - Extremities Exam Additional comments: left fourth digit stump site closed, no discharge, mild edema and minimal erythema, and minimal warmth to touch - Neurological Exam Neurological exam: Alert, Oriented x3 Results - Vital Signs Recent Vital Signs: Last Vital Signs Temp 98.3 F 05/16/18 15:59 Pulse 83 05/16/18 15:59 Resp 16 05/16/18 15:59 BP 134/82 05/16/18 15:59 Pulse Ox 98 05/16/18 15:59 - Labs Result Diagrams: 05/16/18 17:45 05/16/18 17:45 Labs: Laboratory Results - last 24 hr 05/16/18 17:45 WBC 3.9 L RBC 3.39 L Hgb 11.5 L Hct 34.3 L MCV 101.3 H MCH 33.8 H MCHC 33.4 RDW 15.3 H Plt Count 84 L MPV 8.1 Neut % (Auto) 67.7 Lymph % (Auto) 19.8 L [place] % (Auto) 8.5 Eos % (Auto) 3.0 Baso % (Auto) 1.0 Neut # (Auto) 2.6 Lymph # (Auto) 0.8 L [place] # (Auto) 0.3 Eos # (Auto) 0.1 Baso # (Auto) 0.0 Accession No. : [id number] Patient Name / ID : AYANA Dao / [id number] Exam Date : 05/16/2018 17:13:40 ( Approved ) Study Comment : Sex / Age : M / [id number] Creator : gio valera Dictator : Donna Abdullahi MD Data Entry Processor : Military Science Teacher : Donna Abdullahi MD Approver2 : Report Date : 05/16/2018 17:35:22 My Comment : Date of service: 05/16/2018 Indication: L 4th digit osteomyelitis Three views, left hand radiographs Comparison: Left thumb radiographs performed 01/29/17 Findings: No acute displaced fracture or dislocation identified. Prior amputation of the 5th digit at the level of the proximal metacarpal and 2nd digit at the middle phalanx. Osseous destruction/deformity of the distal 3rd and 4th digits. Dense vascular calcifications. Metallic coils in the soft tissues of the distal forearm. Lucency at the base of the 2nd metacarpal of unclear etiology. Impression: Soft tissue swelling. Erosion/deformities of the distal 3rd and 4th digits. Lucency at the base of the 2nd metacarpal of unclear etiology. Changes related to osteomyelitis suspe cted. Correlate clinically. Suggest further evaluation with MRI without and with IV contrast if indicated. Prior amputation of the 5th and 2nd digits as above. Assessment & Plan (1) Osteomyelitis of finger of left hand Status: Acute (2) CKD (chronic kidney disease) requiring chronic dialysis Status: Acute (3) Diabetic neuropathy Status: Acute - Assessment and Plan (Free Text) Assessment: A/P- year old male with multiple medical conditions including DM II, ESRD On HD, multiple OM of the fingertips inj the past and has been treated in past with group home IV antibiotics adn multiple digit amputations who now has left fourth thumb K.OXytoca OM based on the bone culture done by as outpatietn and his latest MRI result ( done as outpatient). plan- check Blood cx x 1. advise to start patient on Ertapenem gram IV daily. advise if blood cx negative to place picc line so that pt. can complete 6 weeks of IV antibiotics for the left fourth digit OM. pending insurance approoval of antibiotics either to go to [facility] to complete his abx therapy or home Iv abx infusion. all above d/w patient and he verbalizes full understanding of all above and agrees with above plan of care. Thank you for allowing me to take part in the care of this patient.
[2018-05-16 18:18] LABS: ALB/GLOB RATIO 1.1 (1.0-2.1); ALBUMIN 4.4 g/dL (3.5-5.0); CALCIUM 8.8 mg/dL (8.4-10.2)
--- NOTE | 2018-05-16 19:41 | ED PDOC ---
Upper Extremity Pain/Injury Time Seen by Provider: 05/16/18 16:32 Chief Complaint (Nursing): Upper Extremity Problem/Injury History Per: Patient Additional Complaint(s): Pt. states he's had L 4th digit swelling and discharge for several months due to an infection. Pt. was seen by Dr. Walsh today who advised to come to ED for Invanz IV and picc line insertion. Denies fever, trauma. Of note, pt. finished his dialysis today. Past Medical History Reviewed: Historical Data, Nursing Documentation, Vital Signs Vital Signs: Last Vital Signs Temp 98.3 F 05/16/18 15:59 Pulse 83 05/16/18 15:59 Resp 16 05/16/18 15:59 BP 134/82 05/16/18 15:59 Pulse Ox 98 05/16/18 15:59 - Medical History PMH: Anemia, Anxiety, Arthritis, Atrial Fibrillation, CAD, Cardia Arrhythmia, CHF, Colonic Polyps (2012), Depression, Diabetes, Fractures (Right foot surgery), HTN, Hypercholesterolemia, Hyperlipidemia, Pneumonia, End Stage Renal Disease (with dialysis), Chronic Kidney Disease, Sleep Apnea, TIA (2010) Denies: COPD, Hypothyroidism, Rheumatoid Arthritis - Surgical History Surgical History: Endoscopy - Family History Family History: States: No Known Family Hx - Immunization History Hx Tetanus Toxoid Vaccination: No Hx Influenza Vaccination: Yes (2013) Hx Pneumococcal Vaccination: Yes (2013) - Home Medications Home Medications: Ambulatory Orders Medication Instructions Recorded Sertraline [Zoloft] 50 mg PO HS 08/09/16 Atorvastatin [Lipitor] 20 mg PO HS 09/14/16 Clopidogrel [Plavix] 75 mg PO DAILY tab 09/23/16 Alprazolam 0.5 mg PO HS 11/03/16 Insulin Glargine,Hum.rec.anlog 5 unit SQ HS 06/07/17 [Toujeo Solostar] Cholecalciferol [Vitamin D 1000 IU] 1,000 unit PO DAILY 06/21/17 Insulin Lispro [humALOG] 4 unit SC AC 06/21/17 Ranitidine HCl [Zantac] 150 mg PO HS 06/21/17 oxyCODONE/Acetaminophen [Percocet 1 tab PO TTS 06/21/17 5/325 mg Tab] Aspirin [Ecotrin] 81 mg PO DAILY tabec 12/14/17 GlipiZIDE [Glucotrol] 10 mg PO BIDAC tab 12/14/17 Calcitriol [Rocaltrol] 0.5 mcg PO TTS 05/16/18 Cinacalcet [Sensipar] 30 mg PO TTS 05/16/18 Lactulose [Generlac] 30 ml PO Q12 PRN 05/16/18 Metoprolol Succinate XL [Toprol XL] 50 mg PO SUMOWEFR 05/16/18 Sevelamer [Renagel] 3,200 mg PO TID 05/16/18 cloNIDine [Catapres] 0.2 mg PO SUMOWEFR 05/16/18 - Allergies Allergies/Adverse Reactions: Allergies Allergy/AdvReac Type Severity Reaction Status Date / Time ciprofloxacin Allergy SWELLING Verified 06/21/17 10:25 Penicillins Allergy ANAPHYLAXIS Verified 06/21/17 10:25 propofol Allergy ANAPHYLAXIS Verified 06/21/17 10:25 vitamin K2 Allergy SHORTNESS Verified 06/21/17 10:25 OF BREATH diphenhydramine HCl AdvReac ITCHING Verified 06/21/17 10:25 [From Benadryl] surgical tape Allergy REDNESS Uncoded 06/21/17 10:25 Review of Systems ROS Statement: Except As Marked, All Systems Reviewed And Found Negative Physical Exam - Physical Exam Appears: Positive for: Well, Non-toxic, No Acute Distress Skin: Positive for: Normal Color, Warm. Negative for: Rash Eye Exam: Positive for: Normal appearance Cardiovascular/Chest: Positive for: Regular Rate, Rhythm Respiratory: Positive for: Normal Breath Sounds. Negative for: Respiratory Distress Gastrointestinal/Abdominal: Positive for: Normal Exam, Soft. Negative for: Tenderness Extremity: Positive for: Other (L 4th digit with diffuse swelling and with DIP amuptation without erythema or fluctuance or discharge) Neurological/Psych: Positive for: Awake, Alert, Oriented (x3) - Laboratory Results Result Diagrams: 05/16/18 17:45 05/16/18 17:45 Lab Results: Total Bilirubin 0.9 mg/dl (0.2-1.3) 05/16/18 17:45 AST 18 U/L (17-59) 05/16/18 17:45 ALT 33 U/L (21-72) 05/16/18 17:45 Alkaline Phosphatase 195 U/L (38-126) H D 05/16/18 17:45 Total Protein 8.5 G/DL (6.3-8.2) H 05/16/18 17:45 Albumin 4.4 g/dL (3.5-5.0) 05/16/18 17:45 Globulin 4.1 gm/dL (2.2-3.9) H 05/16/18 17:45 Albumin/Globulin Ratio 1.1 (1.0-2.1) 05/16/18 17:45 - ECG O2 Sat by Pulse Oximetry: 98 - Progress ED Course And Treament: Labs, Ivanz IV ordered. Case d/w Dr. Walsh who recommends Invanz 1gm IV daily and PICC line insertion order. Case d/w Dr. Brower who agrees with plan and care and requests Dr. Rodriguez for nephrology consult. Disposition - Clinical Impression Clinical Impression: Finger osteomyelitis, left - Patient ED Disposition Is Patient to be Admitted: Yes - Disposition Disposition: Routine/Home Disposition Time: 17:00 Condition: FAIR
[2018-05-16 22:27] VITALS: BMI 30.8
[2018-05-16] MEDS ORDERED: Lactulose 10 gm/15 ml (Rectal Use) PR PRN (22:35)
[2018-05-16] MEDS ORDERED: INSULIN GLARGINE HUM REC ANLOG 5 UNIT SQ SCH (22:45)
[2018-05-16] MEDS ORDERED: Oxycodone/Acetaminophen 5/325 mg Tab PO PRN (22:49)
[2018-05-16] MEDS: Metoprolol Succinate 50 mg XL Tab PO SCH (23:04)
[2018-05-16] MEDS: Insulin Detemir 100 Units/ml Inj SC SCH (23:06)
[2018-05-17] MEDS: Insulin Lispro (humaLOG) 100 Units/ml Inj SC SCH ×3 (08:00→16:33)
[2018-05-17] MEDS: Cholecalciferol 1,000 INTLU TAB PO SCH (08:59)
--- NOTE | 2018-05-17 13:06 | CP.PCM.CON ---
History of Present Illness - History of Present Illness History of Present Illness: 62 years of age gentleman known to me with end-stage renal disease on maintenance hemodialysis TTS. He had dialysis yesterday and he presented for admission from the emergency room because of nonhealing cellulitis of the tip of the left finger that he has been receiving vancomycin although antibiotics has to be changed as recommended by ID patient admitted for PICC line to continue with antibiotics and further treatment. Past medical history Marose of admission related to multitude of medical problems related but not limited to osteomyelitis of the left hand and multiple cellulitis of other fingers of the hand and congestive heart failure swollen of the legs deep vein thrombosis in the past with chronic atrial fibrillation and congestive heart failure among other multitude of medical problems related to diabetes and hypert ension as well Social history not contributory Review of Systems - Constitutional Constitutional: Anorexia. absent: Chills - EENT Eyes: Blind Spots. absent: Exophthalmos Nose/Mouth/Throat: absent: Epistaxis, Nasal Congestion - Cardiovascular Cardiovascular: Edema. absent: Acrocyanosis, Chest Pain, Dyspnea - Respiratory Respiratory: Dyspnea on Exertion. absent: Cough, Dyspnea, Hemoptysis - Gastrointestinal Gastrointestinal: absent: Abdominal Pain, Coffee Ground Emesis, Hematochezia - Genitourinary Genitourinary: Nocturia - Musculoskeletal Musculoskeletal: Muscle Weakness. absent: Back Pain, Numbness - Neurological Neurological: Headaches. absent: Abnormal Movements, Confusion, Focal Weakness - Psychiatric Psychiatric: absent: Anxiety, Behavioral Changes - Endocrine Endocrine: Fatigue - Hematologic/Lymphatic Hematologic: absent: Easy Bleeding Past Patient History - Infectious Disease Hx of Infectious Diseases: None - Past Medical History & Family History Past Medical History?: Yes - Past Social History Smoking Status: Never Smoked - CARDIAC Hx Cardiac Disorders: Yes (Afib, CAD, CHF) - PULMONARY Hx Chronic Obstructive Pulmonary Disease (COPD): No Hx Pneumonia: Yes Hx Sleep Apnea: Yes - NEUROLOGICAL Hx Transient Ischemic Attacks (TIA): Yes (2010) - HEENT Hx HEENT Problems: Yes (RETINOPATHY/CATARACT) - RENAL Hx Chronic Kidney Disease: Yes (HD) - ENDOCRINE/METABOLIC Hx Hypothyroidism: No - HEMATOLOGICAL/ONCOLOGICAL Hx Anemia: Yes - INTEGUMENTARY Hx Dermatological Problems: Yes - MUSCULOSKELETAL/RHEUMATOLOGICAL Hx Falls: Yes - GASTROINTESTINAL Hx Gastrointestinal Disorders: Yes Hx Gastroesophageal Reflux: Yes Other/Comment: CONSTIPATION. ELEVATED LFTS. HEPATIC CIRRHOISIS - GENITOURINARY/GYNECOLOGICAL Hx Genitourinary Disorders: Yes - PSYCHIATRIC Hx Substance Use: No - SURGICAL HISTORY Hx Surgeries: Yes Hx Amputation: Yes (AMPUTATION OF LEFT HAND 1ST AND 4TH DIGIT) Hx Cataract Extraction: Yes (L eye) Hx Cardiac Catheterization: Yes Hx Eye Surgery: Yes (RETINOPATHY ) Hx Musculoskeletal Surgery: Yes (LUMBAR SPINE SX 2002) Hx Orthopedic Surgery: Yes (RUBI BREAK RIGHT FOOT 2012 SCREW AND METAL PLATES PLACED) Hx Vascular Surgery: Yes (AV FISTULA RIGHT FORE ARM) Hx Vascular Access Device: Yes (l avf) Other/Comment: PENILE CIRCUMCISION 08/27/16. LEFT HAND 1ST AND FOURTH DIGIT AMPUTATION 2016 - ANESTHESIA Hx Anesthesia: Yes Hx Anesthesia Reactions: Yes (PROPOFOL -anaphylaxis) Hx Malignant Hyperthermia: No Meds Allergies/Adverse Reactions: Allergies Allergy/AdvReac Type Severity Reaction Status Date / Time ciprofloxacin Allergy SWELLING Verified 06/21/17 10:25 Penicillins Allergy ANAPHYLAXIS Verified 06/21/17 10:25 propofol Allergy ANAPHYLAXIS Verified 06/21/17 10:25 vitamin K2 Allergy SHORTNESS Verified 06/21/17 10:25 OF BREATH diphenhydramine HCl AdvReac ITCHING Verified 06/21/17 10:25 [From Benadryl] surgical tape Allergy REDNESS Uncoded 06/21/17 10:25 - Medications Medications: Current Medications Alprazolam (Xanax) 0.5 mg PO [facility] Last Admin: 05/16/18 23:04 Dose: 0.5 mg Aspirin (Ecotrin) 81 mg PO DAILY [facility] Last Admin: 05/17/18 08:55 Dose: 81 mg Atorvastatin Calcium (Lipitor) 20 mg PO [facility] Last Admin: 05/16/18 23:04 Dose: 20 mg Calcitriol (Rocaltrol) 0.5 mcg PO TTS [facility] Cholecalciferol (Vitamin D) 1,000 intlu PO DAILY [facility] Last Admin: 05/17/18 08:59 Dose: 1,000 intlu Cinacalcet (Sensipar) 30 mg PO TTS [facility] Clonidine HCl (Catapres) 0.2 mg PO SUMOWEFR [facility] Last Admin: 05/16/18 23:05 Dose: 0.2 mg Clopidogrel Bisulfate (Plavix) 75 mg PO DAILY [facility] Last Admin: 05/17/18 12:43 Dose: 75 mg Famotidine (Pepcid) 20 mg PO [facility] Last Admin: 05/16/18 23:04 Dose: 20 mg Glipizide (Glucotrol) 10 mg PO BIDAC [facility] Last Admin: 05/17/18 08:00 Dose: 10 mg Ertapenem 1 gm/ Sodium (Chloride) 100 mls @ 100 mls/hr IVPB DAILY [facility]; Protocol Last Admin: 05/17/18 12:35 Dose: 100 mls/hr Insulin Detemir (Levemir) 5 units SC HS [facility] Last Admin: 05/16/18 23:06 Dose: 5 units Insulin Human Lispro (Humalog) 4 units SC AC [facility] Last Admin: 05/17/18 12:35 Dose: Not Given Lactulose (Enulose) 20 gm PO Q12 PRN PRN Reason: Constipation Metoprolol Succinate (Toprol Xl) 50 mg PO SUMOWEFR [facility] Last Admin: 05/16/18 23:04 Dose: 50 mg Oxycodone/Acetaminophen (Percocet 5/325 Mg Tab) 1 tab PO Q4 PRN PRN Reason: Pain, moderate (4-7) Stop: 05/19/18 22:50 Sertraline HCl (Zoloft) 50 mg PO [facility] Last Admin: 05/16/18 23:05 Dose: 50 mg Sevelamer Carbonate (Renvela) 3,200 mg PO TID [facility] Last Admin: 05/17/18 12:45 Dose: 3,200 mg Physical Exam - Constitutional Appears: No Acute Distress - Eye Exam Eye Exam: Conjunctival injection - ENT Exam ENT Exam: Mucous Membranes Moist - Neck Exam Neck exam: Negative for: Lymphadenopathy - Respiratory Exam Respiratory Exam: NORMAL BREATHING PATTERN. absent: Chest Wall Tenderness, Rales - Cardiovascular Exam Cardiovascular Exam: Irregular Rhythm. absent: JVD, Rubs - GI/Abdominal Exam GI & Abdominal Exam: absent: Diminished Bowel Sounds, Guarding, Organomegaly - Extremities Exam Extremities exam: Positive for: pedal edema. Negative for: calf tenderness - Back Exam Back exam: absent: CVA tenderness (L), CVA tenderness (R) - Neurological Exam Neurological exam: Alert - Psychiatric Exam Psychiatric exam: Normal Affect Results - Vital Signs Recent Vital Signs: Last Vital Signs Temp 97.5 F L 05/17/18 07:56 Pulse 60 05/17/18 07:56 Resp 20 05/17/18 07:56 BP 151/74 H 05/17/18 07:56 Pulse Ox 96 04/10/19 07:56 - Labs Result Diagrams: 05/16/18 17:45 05/16/18 17:45 Labs: Laboratory Results - last 24 hr 05/16/18 05/16/18 05/16/18 17:45 17:45 21:49 WBC 3.9 L RBC 3.39 L Hgb 11.5 L Hct 34.3 L MCV 101.3 H MCH 33.8 H MCHC 33.4 RDW 15.3 H Plt Count 84 L MPV 8.1 Neut % (Auto) 67.7 Lymph % (Auto) 19.8 L [place] % (Auto) 8.5 Eos % (Auto) 3.0 Baso % (Auto) 1.0 Neut # (Auto) 2.6 Lymph # (Auto) 0.8 L [place] # (Auto) 0.3 Eos # (Auto) 0.1 Baso # (Auto) 0.0 Sodium 137 Potassium 4.6 Chloride 97 L Carbon Dioxide 28 Anion Gap 17 BUN 36 H Creatinine 3.0 H Est GFR ( Amer) 26 Est GFR (Non-Af Amer) 21 POC Glucose (mg/dL) 172 H Random Glucose 129 H Calcium 8.8 Total Bilirubin 0.9 AST 18 ALT 33 Alkaline Phosphatase 195 H D Total Protein 8.5 H Albumin 4.4 Globulin 4.1 H Albumin/Globulin Ratio 1.1 05/17/18 05/17/18 05/17/18 05:31 11:02 11:55 WBC RBC Hgb Hct MCV MCH MCHC RDW Plt Count MPV Neut % (Auto) Lymph % (Auto) [place] % (Auto) Eos % (Auto) Baso % (Auto) Neut # (Auto) Lymph # (Auto) [place] # (Auto) Eos # (Auto) Baso # (Auto) Sodium Potassium Chloride Carbon Dioxide Anion Gap BUN Creatinine Est GFR ( Amer) Est GFR (Non-Af Amer) POC Glucose (mg/dL) 223 H 184 H 93 Random Glucose Calcium Total Bilirubin AST ALT Alkaline Phosphatase Total Protein Albumin Globulin Albumin/Globulin Ratio Assessment & Plan (1) Osteomyelitis of finger of left hand Status: Acute (2) CKD (chronic kidney disease) requiring chronic dialysis Assessment and Plan: mp: ESRD Cellulitis and possible osteomyelitis of the left fourth tip of the hand Anemia of Renal Disease/ Hypertensive Kidney disease/ Secondary hyperparathyroid/ Hyperphosphatemia/ hemodialysis TTS Recommendation ID evaluation on renvela : continue same continue calcitriol continue epogen continue home bp meds chronic atrial fibrillation with ventricular rate controlled Status: Acute
[2018-05-17] MEDS: Insulin Detemir 100 Units/ml Inj SC SCH (22:26)
[2018-05-17] MEDS: Metoprolol Succinate 50 mg XL Tab PO SCH (22:26)
--- NOTE | 2018-05-18 01:15 | HP ---
HISTORY OF PRESENT ILLNESS: He is a 62-year-old male with end-stage renal disease, on hemodialysis, was referred to emergency room by infectious disease networks computer consultant due to the infected right hand. The patient has a problem of biting of his nails and his fingers, and he had many infections that led to multiple amputations of phalangeal parts of his fingers of both hands. The patient has been followed by Dr. Walsh for this infection, and cultures were sent for him as an outpatient, and the patient was supposed to be on ertapenem 1 g daily which the patient needed to be admitted to the hospital for further management. REVIEW OF SYSTEMS: Generalized weakness and bilateral lower extremity weakness right more than left and decreased visual acuity in both eyes. MEDICATIONS: Reviewed as per MAR and ordered. ALLERGIES: THE PATIENT HAS ALLERGY TO CIPROFLOXACIN, PENICILLIN, PROPOFOL, VITAMIN D2. SOCIAL HISTORY: No history of smoking, EtOH, or substance abuse. FAMILY HISTORY: Not contributory. PHYSICAL EXAMINATION: GENERAL: The patient is in bed, not in any cardiopulmonary distress. VITAL SIGNS: Blood pressure of 151/74, temperature 97.5, respiratory rate 20, and pulse 60. HEENT: Pupils equal, reactive to light. Normal-appearing mucosa of the conjunctivae, oropharynx and nasal membrane mucosa. NECK: Supple. No JVD. No carotid bruit. No lymph node. No thyromegaly. CHEST AND LUNGS: Bilateral symmetrical expansion. Good air exchange. No rales. No rhonchi. CARDIOVASCULAR SYSTEM: PMI not localized. S1, S2, no additional sounds. ABDOMEN: Normoactive bowel sounds. No tenderness, no organomegaly, no masses. EXTREMITIES: No cyanosis, no clubbing, no edema. There is infected right fourth finger with discharge coming out. CENTRAL NERVOUS SYSTEM: Alert, awake, oriented x2. No neurological deficit could be appreciated except for weakness of the right lower extremity due to radiculopathy and decreased sensation of both lower extremities and due to neuropathy. ASSESSMENT: 1. Infected right hand. 2. End-stage renal disease, on hemodialysis. 3. Type 2 diabetes mellitus with hyperglycemia. 4. Chronic atrial fibrillation. 5. History of hypertension. 6. Severe degenerative spine disease with radiculopathy and right lower extremity weakness more than left. 7. Peripheral neuropathy. PLAN: Continue current medications and follow ID recommendations regarding antibiotics. Renal consult for hemodialysis. Resume the patient's home medicine. [facility] MD [place]
[2018-05-18] MEDS: Insulin Lispro (humaLOG) 100 Units/ml Inj SC SCH ×4 (08:03→15:51)
[2018-05-18] MEDS: Cholecalciferol 1,000 INTLU TAB PO SCH (08:06)
[2018-05-18] MEDS ORDERED: Oxycodone/Acetaminophen 5/325 mg Tab PO SCH (09:00)
--- NOTE | 2018-05-18 09:57 | CP.PCM.PN ---
Subjective - Date & Time of Evaluation Date of Evaluation: 05/18/18 Time of Evaluation: 09:54 - Subjective Subjective: Dialysis note He was seen on hemodialysis I discussed the order with the dialysis nurse at the bedside Patient is stable clinically Vital signs noted to be stable Objective - Vital Signs/Intake and Output Vital Signs (last 24 hours): Temp Pulse Resp BP Pulse Ox 97.7 F 74 20 144/89 98 05/18/18 08:14 05/18/18 08:14 05/18/18 08:14 05/18/18 08:14 05/18/18 08:14 - Medications Medications: Current Medications Alprazolam (Xanax) 0.5 mg PO HS [facility] Last Admin: 05/17/18 21:40 Dose: 0.5 mg Aspirin (Ecotrin) 81 mg PO DAILY [facility] Last Admin: 05/18/18 08:04 Dose: 81 mg Atorvastatin Calcium (Lipitor) 20 mg PO HS [facility] Last Admin: 05/17/18 21:35 Dose: 20 mg Calcitriol (Rocaltrol) 0.5 mcg PO TTS [facility] Cholecalciferol (Vitamin D) 1,000 intlu PO DAILY [facility] Last Admin: 05/18/18 08:06 Dose: 1,000 intlu Cinacalcet (Sensipar) 30 mg PO TTS [facility] Last Admin: 05/18/18 08:05 Dose: 30 mg Clonidine HCl (Catapres) 0.2 mg PO SUMOWEFR [facility] Last Admin: 05/17/18 21:34 Dose: 0.2 mg Clopidogrel Bisulfate (Plavix) 75 mg PO DAILY [facility] Last Admin: 05/18/18 08:04 Dose: 75 mg Famotidine (Pepcid) 20 mg PO HS [facility] Last Admin: 05/17/18 21:34 Dose: 20 mg Glipizide (Glucotrol) 10 mg PO BIDAC [facility] Last Admin: 05/18/18 08:03 Dose: 10 mg Ertapenem 1 gm/ Sodium (Chloride) 100 mls @ 100 mls/hr IVPB DAILY [facility]; Protocol Last Admin: 05/18/18 08:04 Dose: 100 mls/hr Insulin Detemir (Levemir) 5 units SC HS [facility] Last Admin: 05/17/18 22:26 Dose: Not Given Insulin Human Lispro (Humalog) 4 units SC AC [facility] Last Admin: 05/18/18 08:03 Dose: 4 units Lactulose (Enulose) 20 gm PO Q12 PRN PRN Reason: Constipation Metoprolol Succinate (Toprol Xl) 50 mg PO SUMOWEFR [facility] Last Admin: 05/17/18 22:26 Dose: 50 mg Oxycodone/Acetaminophen (Percocet 5/325 Mg Tab) 1 tab PO Q4 PRN PRN Reason: Pain, moderate (4-7) Stop: 05/19/18 22:50 Sertraline HCl (Zoloft) 50 mg PO HS [facility] Last Admin: 05/17/18 21:35 Dose: 50 mg Sevelamer Carbonate (Renvela) 3,200 mg PO TID [facility] Last Admin: 05/18/18 08:05 Dose: 3,200 mg - Labs Labs: 05/16/18 17:45 05/16/18 17:45 - Constitutional Appears: No Acute Distress - ENT Exam ENT Exam: Mucous Membranes Moist - Respiratory Exam Respiratory Exam: NORMAL BREATHING PATTERN. absent: Chest Wall Tenderness - Cardiovascular Exam Cardiovascular Exam: absent: Gallop, JVD, Rubs - GI/Abdominal Exam GI & Abdominal Exam: Soft, Normal Bowel Sounds - Extremities Exam Extremities Exam: absent: Calf Tenderness - Back Exam Back Exam: absent: CVA tenderness (L), CVA tenderness (R) - Neurological Exam Neurological Exam: Alert - Psychiatric Exam Psychiatric exam: Normal Affect - Skin Skin Exam: absent: Cyanosis Assessment and Plan (1) Osteomyelitis of finger of left hand Status: Acute (2) CKD (chronic kidney disease) requiring chronic dialysis Assessment & Plan: ESRD Patient receiving hemodialysis Discussed the dialysis order with the dialysis nurse. Patient to have ultrafiltration approximately 4000 cc as tolerated patient has been having fluid removal about 5000 cc as outpatient because he is known to be weight elda Cellulitis and possible osteomyelitis of the left fourth tip of the hand Anemia of Renal Disease/ Hypertensive Kidney disease/ Secondary hyperparathyroid/ Hyperphosphatemia/ Chronic atrial fibrillation which has been stable hemodialysis TTS Recommendation Continue hemodialysis as scheduled Antibiotics as recommended by her ID Phosphorus binder and EPO for anemia Status: Acute
--- NOTE | 2018-05-18 10:24 | CP.PCM.PN ---
Subjective - Date & Time of Evaluation Date of Evaluation: 05/18/18 Time of Evaluation: 10:24 Objective - Vital Signs/Intake and Output Vital Signs (last 24 hours): Temp Pulse Resp BP Pulse Ox 97.7 F 74 20 144/89 98 05/18/18 08:14 05/18/18 08:14 05/18/18 08:14 05/18/18 08:14 05/18/18 08:14 - Medications Medications: Current Medications Alprazolam (Xanax) 0.5 mg PO HS [facility] Last Admin: 05/17/18 21:40 Dose: 0.5 mg Aspirin (Ecotrin) 81 mg PO DAILY [facility] Last Admin: 05/18/18 08:04 Dose: 81 mg Atorvastatin Calcium (Lipitor) 20 mg PO HS [facility] Last Admin: 05/17/18 21:35 Dose: 20 mg Calcitriol (Rocaltrol) 0.5 mcg PO TTS [facility] Last Admin: 05/18/18 10:15 Dose: 0.5 mcg Cholecalciferol (Vitamin D) 1,000 intlu PO DAILY [facility] Last Admin: 05/18/18 08:06 Dose: 1,000 intlu Cinacalcet (Sensipar) 30 mg PO TTS [facility] Last Admin: 05/18/18 08:05 Dose: 30 mg Clonidine HCl (Catapres) 0.2 mg PO SUMOWEFR [facility] Last Admin: 05/17/18 21:34 Dose: 0.2 mg Clopidogrel Bisulfate (Plavix) 75 mg PO DAILY [facility] Last Admin: 05/18/18 08:04 Dose: 75 mg Famotidine (Pepcid) 20 mg PO HS [facility] Last Admin: 05/17/18 21:34 Dose: 20 mg Glipizide (Glucotrol) 10 mg PO BIDAC [facility] Last Admin: 05/18/18 08:03 Dose: 10 mg Ertapenem 1 gm/ Sodium (Chloride) 100 mls @ 100 mls/hr IVPB DAILY [facility]; Protocol Last Admin: 05/18/18 08:04 Dose: 100 mls/hr Insulin Detemir (Levemir) 5 units SC HS [facility] Last Admin: 05/17/18 22:26 Dose: Not Given Insulin Human Lispro (Humalog) 4 units SC AC [facility] Last Admin: 05/18/18 08:03 Dose: 4 units Lactulose (Enulose) 20 gm PO Q12 PRN PRN Reason: Constipation Metoprolol Succinate (Toprol Xl) 50 mg PO SUMOWEFR [facility] Last Admin: 05/17/18 22:26 Dose: 50 mg Oxycodone/Acetaminophen (Percocet 5/325 Mg Tab) 1 tab PO Q4 PRN PRN Reason: Pain, moderate (4-7) Stop: 05/19/18 22:50 Sertraline HCl (Zoloft) 50 mg PO HS [facility] Last Admin: 05/17/18 21:35 Dose: 50 mg Sevelamer Carbonate (Renvela) 3,200 mg PO TID [facility] Last Admin: 05/18/18 08:05 Dose: 3,200 mg - Labs Labs: 05/16/18 17:45 05/16/18 17:45 Assessment and Plan (1) Osteomyelitis of finger of left hand Status: Acute (2) CKD (chronic kidney disease) requiring chronic dialysis Status: Acute (3) Diabetic neuropathy Status: Acute
--- NOTE | 2018-05-18 17:40 | PQF ---
PROVIDER RESPONSE TEXT: History of systolic and diastolic heart failure , not currently a treated condition. REVIEWER QUERY TEXT: Heart Failure Acuity and Type PMH: Congestive Heart Failure is documented in the ER and Renal notes. Please document the type and a cuity (includes probable or suspected) versus History only: not a currently treated condition.) Type: -- Combined systolic and diastolic (heart failure with reduced ejection fraction and diastolic) dysfu nction -- Diastolic (HFpEF) -- Systolic (HFrEF) -- Left heart failure -- Right heart failure -- Right heart failure due to left heart failure -- High output failure -- End stage heart failure -- Other, please specify Acuity: -- Acute -- Chronic -- Acute on chronic -- Other, please specify H and P includes: Hx. of HTN V/S: Lungs: No rales Extremities: no edema ER and Renal note include: PMH: CHF The patient's Clinical Indicators include: ---- Query created by: Madison Bernabe on 05/18/2018 11:35 AM Electronically signed by: Alverto Brower MD 05/18/2018 5:37 PM
--- NOTE | 2018-05-18 17:40 | PQF ---
PROVIDER RESPONSE TEXT: Infected left 4th finger REVIEWER QUERY TEXT: Conflicting Documentation Clarification Osteomyelitis of the left fourth finger is documented by ID content management consultant:: Please clarify if this diagn osis is: -- Confirmed and current -- Confirmed, treated and resolved -- Ruled out -- Other, please specify --Unable to determine ID consult includes: now has left fourth thumb K.OXytoca OM based on the bone culture done by as outpatietn and his latest MRI result ( done as outpatient). plan:check Blood cx x 1. advise to start patient on Ertapenem gram IV daily.advise if blood cx negati ve to place picc line so that pt. can complete 6 weeks of IV antibiotics for the left fourth digit OM . H and P dxs. include: Infected right hand. 05/17 Renal note includes: Cellulitis and possible osteomyelitis of the left fourth tip of the hand 05/18 ID progress note includes: Osteomyelitis of finger of left hand Status: Acute The patient's Clinical Indicators include: -- Query created by: Madison Bernabe on 05/18/2018 11:27 AM Electronically signed by: Alverto Brower MD 05/18/2018 5:37 PM
[2018-05-18] MEDS: Saccharomyces Boulardi 250 mg Cap PO SCH (18:30)
[2018-05-18] MEDS: Insulin Detemir 100 Units/ml Inj SC SCH (22:18)
--- NOTE | 2018-05-18 23:00 | PN ---
DATE: 05/18/2018 SUBJECTIVE: The patient is seen today, 05/18/2018. He is having two episodes of diarrhea and the patient is tolerating antibiotics, seen during hemodialysis. PHYSICAL EXAMINATION: VITAL SIGNS: Blood pressure 125/76, temperature 97.3, respiratory rate 20 and pulse 71. HEENT: Pupils equal, reactive to light. Slightly pale mucosa of the conjunctivae. NECK: Supple. No JVD. No carotid bruit. No lymph node. No thyromegaly. CHEST AND LUNGS: Bilateral symmetrical expansion. Good air exchange. No rales. No rhonchi. CARDIOVASCULAR SYSTEM: PMI not localized. S1, S2. No additional sounds. ABDOMEN: Normoactive bowel sounds. No tenderness, no organomegaly, no masses. EXTREMITIES: No cyanosis, no clubbing, no edema. There is multiple amputation of phalanges and fingers from both hands and right fourth finger is swollen and mildly tender. STATIONARY STEAM ENGINEER: Alert, awake, oriented x3 and the patient has bilateral lower extremity weakness due to radiculopathy/neuropathy, right more than left. ASSESSMENT: 1. Infected right hand, currently on Invanz. 2. End-stage renal disease, on hemodialysis. 3. Chronic atrial fibrillation, did not tolerate anticoagulant. 4. Hypertension. 5. Type 2 diabetes mellitus with hyperglycemia. PLAN: Continue current antibiotics and follow recommendations of the Infectious disease and continue hemodialysis. We will collect stool for C. diff and white blood cell count. We will give probiotic and start cholestyramine. Alverto Brower MD
[2018-05-19 06:01] VITALS: RESP 18
[2018-05-19 06:27] LABS: EOS # 0.1 K/uL (0.0-0.7); EOS % 2.9 % (0.0-4.0); HEMOGLOBIN 11.8 g/dL (12.0-18.0); LYMPH # 0.8 K/uL (1.0-4.3); LYMPH % 17.4 % (20.0-40.0); MEAN CORPUSCULAR HEMOGLOBIN 33.5 pg (27.0-31.0); MEAN CORPUSCULAR HGB CONC 32.4 g/dL (33.0-37.0); MEAN PLATELET VOLUME 9.2 fl (7.2-11.7); MONO # 0.4 K/uL (0.0-0.8); MONO % 9.4 % (0.0-10.0); NEUT # 3.2 K/uL (1.8-7.0); NEUT % 69.3 % (50.0-75.0); NRBC % 0.2 % (0.0-0.0); RBC 3.53 Mil/uL (4.40-5.90); RED CELL DISTRIBUTION WIDTH 15.3 % (11.5-14.5); WHITE BLOOD COUNT 4.6 K/uL (4.8-10.8)
[2018-05-19 06:42] LABS: MEAN CELL VOLUME 103.2 fl (80.0-94.0)
[2018-05-19] MEDS: Saccharomyces Boulardi 250 mg Cap PO SCH ×2 (08:59→16:06)
[2018-05-19] MEDS: Insulin Lispro (humaLOG) 100 Units/ml Inj SC SCH ×3 (09:00→16:06)
[2018-05-19] MEDS: Cholecalciferol 1,000 INTLU TAB PO SCH (09:02)
--- NOTE | 2018-05-19 12:01 | CP.PCM.PN ---
Subjective - Date & Time of Evaluation Date of Evaluation: 05/19/18 Time of Evaluation: 12:01 - Subjective Subjective: ID note- Patient seen and examined today. his at his bedside. denies any fever or chills. + diarrhea past 2 days. has right arm picc line placed today. will be going to [facility] later today for continuation OF iv abx for left fourth digit OM. Objective - Vital Signs/Intake and Output Vital Signs (last 24 hours): Temp Pulse Resp BP Pulse Ox 97.8 F 62 18 132/76 98 05/19/18 05:00 05/19/18 05:00 05/19/18 05:00 05/19/18 05:00 05/19/18 05:00 - Medications Medications: Current Medications Alprazolam (Xanax) 0.5 mg PO HS [facility] Last Admin: 05/18/18 21:27 Dose: 0.5 mg Aspirin (Ecotrin) 81 mg PO DAILY [facility] Last Admin: 05/19/18 08:59 Dose: 81 mg Atorvastatin Calcium (Lipitor) 20 mg PO HS [facility] Last Admin: 05/18/18 21:27 Dose: 20 mg Calcitriol (Rocaltrol) 0.5 mcg PO TTS [facility] Last Admin: 05/18/18 10:15 Dose: 0.5 mcg Cholecalciferol (Vitamin D) 1,000 intlu PO DAILY [facility] Last Admin: 05/19/18 09:02 Dose: 1,000 intlu Cinacalcet (Sensipar) 30 mg PO TTS [facility] Last Admin: 05/18/18 08:05 Dose: 30 mg Clonidine HCl (Catapres) 0.2 mg PO SUMOWEFR [facility] Last Admin: 05/17/18 21:34 Dose: 0.2 mg Clopidogrel Bisulfate (Plavix) 75 mg PO DAILY [facility] Last Admin: 05/19/18 09:01 Dose: 75 mg Famotidine (Pepcid) 20 mg PO HS [facility] Last Admin: 05/18/18 21:27 Dose: 20 mg Glipizide (Glucotrol) 10 mg PO BIDAC [facility] Last Admin: 05/19/18 09:00 Dose: 10 mg Ertapenem 1 gm/ Sodium (Chloride) 100 mls @ 100 mls/hr IVPB DAILY [facility]; Protocol Last Admin: 05/19/18 09:00 Dose: 100 mls/hr Insulin Detemir (Levemir) 5 units SC HS [facility] Last Admin: 05/18/18 22:18 Dose: 5 units Insulin Human Lispro (Humalog) 4 units SC AC [facility] Last Admin: 05/19/18 09:00 Dose: 4 units Lactulose (Enulose) 20 gm PO Q12 PRN PRN Reason: Constipation Metoprolol Succinate (Toprol Xl) 50 mg PO SUMOWEFR [facility] Last Admin: 05/17/18 22:26 Dose: 50 mg Oxycodone/Acetaminophen (Percocet 5/325 Mg Tab) 1 tab PO Q4 PRN PRN Reason: Pain, moderate (4-7) Stop: 05/19/18 22:50 Saccharomyces Boulardii (Florastor) 250 mg PO BID [facility] Last Admin: 05/19/18 08:59 Dose: 250 mg Sertraline HCl (Zoloft) [address] [facility] Last Admin: 05/18/18 21:28 Dose: 50 mg Sevelamer Carbonate (Renvela) 3,200 mg PO TID [facility] Last Admin: 05/19/18 09:01 Dose: 3,200 mg - Labs Labs: - Additional Findings Additional findings: - Constitutional Appears: No Acute Distress - Head Exam Head Exam: ATRAUMATIC - Eye Exam Eye Exam: EOMI, PERRL - ENT Exam ENT Exam: Normal Oropharynx - Neck Exam Neck exam: Positive for: Full Rom - Respiratory Exam Respiratory Exam: Clear to Auscultation Bilateral, NORMAL BREATHING PATTERN - Cardiovascular Exam Cardiovascular Exam: RRR, +S1, +S2 - GI/Abdominal Exam GI & Abdominal Exam: Normal Bowel Sounds, Soft Additional comments: NT, ND - Extremities Exam Additional comments: left fourth digit stump site closed, no discharge, mild edema and minimal erythema, and minimal warmth to touch - Neurological Exam Neurological exam: Alert, Oriented x 3 Laboratory Results - last 72 hr 05/16/18 05/16/18 05/16/18 17:45 17:45 21:49 WBC 3.9 L RBC 3.39 L Hgb 11.5 L Hct 34.3 L MCV 101.3 H MCH 33.8 H MCHC 33.4 RDW 15.3 H Plt Count 84 L MPV 8.1 Neut % (Auto) 67.7 Lymph % (Auto) 19.8 L [place] % (Auto) 8.5 Eos % (Auto) 3.0 Baso % (Auto) 1.0 Neut # (Auto) 2.6 Lymph # (Auto) 0.8 L [place] # (Auto) 0.3 Eos # (Auto) 0.1 Baso # (Auto) 0.0 Sodium 137 Potassium 4.6 Chloride 97 L Carbon Dioxide 28 Anion Gap 17 BUN 36 H Creatinine 3.0 H Est GFR ( Amer) 26 Est GFR (Non-Af Amer) 21 POC Glucose (mg/dL) 172 H Random Glucose 129 H Calcium 8.8 Phosphorus Total Bilirubin 0.9 AST 18 ALT 33 Alkaline Phosphatase 195 H D Total Protein 8.5 H Albumin 4.4 Globulin 4.1 H Albumin/Globulin Ratio 1.1 C. difficile Ag & Toxin 05/17/18 05/17/18 05/17/18 05:31 11:02 11:55 WBC RBC Hgb Hct MCV MCH MCHC RDW Plt Count MPV Neut % (Auto) Lymph % (Auto) [place] % (Auto) Eos % (Auto) Baso % (Auto) Neut # (Auto) Lymph # (Auto) [place] # (Auto) Eos # (Auto) Baso # (Auto) Sodium Potassium Chloride Carbon Dioxide Anion Gap BUN Creatinine Est GFR ( Amer) Est GFR (Non-Af Amer) POC Glucose (mg/dL) 223 H 184 H 93 Random Glucose Calcium Phosphorus Total Bilirubin AST ALT Alkaline Phosphatase Total Protein Albumin Globulin Albumin/Globulin Ratio C. difficile Ag & Toxin 05/17/18 05/17/18 05/17/18 15:33 16:08 21:54 WBC RBC Hgb Hct MCV MCH MCHC RDW Plt Count MPV Neut % (Auto) Lymph % (Auto) [place] % (Auto) Eos % (Auto) Baso % (Auto) Neut # (Auto) Lymph # (Auto) [place] # (Auto) Eos # (Auto) Baso # (Auto) Sodium Potassium Chloride Carbon Dioxide Anion Gap BUN Creatinine Est GFR ( Amer) Est GFR (Non-Af Amer) POC Glucose (mg/dL) 217 H 215 H Random Glucose Calcium Phosphorus 7.3 H Total Bilirubin AST ALT Alkaline Phosphatase Total Protein Albumin Globulin Albumin/Globulin Ratio C. difficile Ag & Toxin 05/18/18 05/18/18 05/18/18 05:32 11:00 15:50 WBC RBC Hgb Hct MCV MCH MCHC RDW Plt Count MPV Neut % (Auto) Lymph % (Auto) [place] % (Auto) Eos % (Auto) Baso % (Auto) Neut # (Auto) Lymph # (Auto) [place] # (Auto) Eos # (Auto) Baso # (Auto) Sodium Potassium Chloride Carbon Dioxide Anion Gap BUN Creatinine Est GFR ( Amer) Est GFR (Non-Af Amer) POC Glucose (mg/dL) 203 H 156 H 78 Random Glucose Calcium Phosphorus Total Bilirubin AST ALT Alkaline Phosphatase Total Protein Albumin Globulin Albumin/Globulin Ratio C. difficile Ag & Toxin 05/18/18 05/18/18 05/19/18 20:00 21:34 05:29 WBC RBC Hgb Hct MCV MCH MCHC RDW Plt Count MPV Neut % (Auto) Lymph % (Auto) [place] % (Auto) Eos % (Auto) Baso % (Auto) Neut # (Auto) Lymph # (Auto) [place] # (Auto) Eos # (Auto) Baso # (Auto) Sodium Potassium Chloride Carbon Dioxide Anion Gap BUN Creatinine Est GFR ( Amer) Est GFR (Non-Af Amer) POC Glucose (mg/dL) 225 H 142 H Random Glucose Calcium Phosphorus Total Bilirubin AST ALT Alkaline Phosphatase Total Protein Albumin Globulin Albumin/Globulin Ratio C. difficile Ag & Toxin Positive antigen 05/19/18 05/19/18 06:00 11:12 WBC 4.6 L RBC 3.53 L Hgb 11.8 L Hct 36.5 MCV 103.2 H MCH 33.5 H MCHC 32.4 L RDW 15.3 H Plt Count 95 L MPV 9.2 Neut % (Auto) 69.3 Lymph % (Auto) 17.4 L [place] % (Auto) 9.4 Eos % (Auto) 2.9 Baso % (Auto) 1.0 Neut # (Auto) 3.2 Lymph # (Auto) 0.8 L [place] # (Auto) 0.4 Eos # (Auto) 0.1 Baso # (Auto) 0.0 Sodium Potassium Chloride Carbon Dioxide Anion Gap BUN Creatinine Est GFR ( Amer) Est GFR (Non-Af Amer) POC Glucose (mg/dL) 150 H Random Glucose Calcium Phosphorus Total Bilirubin AST ALT Alkaline Phosphatase Total Protein Albumin Globulin Albumin/Globulin Ratio C. 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 afebrile blood cx- neg x 2 outpatietn bone cx- [place] oxytoca + diarrhea stool c.diff - Pos Ag plan- check Blood cx x 1. advise to complete 6 weeks of IV ertapenem 1 gram daily , today is id Day #4. in light of diarrhea and pos c.diff AG advise to start pt. on oral vanco for c.diff treatment since pt. does need the [place] bx long-term for this OM treatment. advise on HD days to have ertapenem given post HD. all above d/w patient and he verbalizes full understanding of all above and agrees with above plan of care. All above also d/w
--- NOTE | 2018-05-19 12:20 | RAD ---
Date of service: 05/19/2018 HISTORY: PICC LINE INSERTION VERIFICATION COMPARISON: Portable chest 12/03/2017. TECHNIQUE: 1 view obtained. FINDINGS: LUNGS: Right upper extremity PICC now inserted terminating in upper SVC. Advancement 3-4 cm is advised into more distal SVC at least. No active pulmonary disease. PLEURA: No significant pleural effusion identified, no pneumothorax apparent. CARDIOVASCULAR: No aortic atherosclerotic calcification present. Stable cardiomegaly. No pulmonary vascular congestion. OSSEOUS STRUCTURES: No significant abnormalities. VISUALIZED UPPER ABDOMEN: Normal. OTHER FINDINGS: None. IMPRESSION: Stable cardiomegaly. No infiltrate, pleural effusion or pneumothorax in the interval. Right PICC has been inserted terminating at proximal SVC. Advancement recommended as discussed above.
--- NOTE | 2018-05-19 12:36 | CP.PCM.PN ---
Subjective - Date & Time of Evaluation Date of Evaluation: 05/19/18 Time of Evaluation: 12:35 - Subjective Subjective: Patient awake and conscious feeling good no chest pain no shortness of breath. His and the daughter at the bedside Objective - Vital Signs/Intake and Output Vital Signs (last 24 hours): Temp Pulse Resp BP Pulse Ox 97.8 F 62 18 132/76 98 05/19/18 05:00 05/19/18 05:00 05/19/18 05:00 05/19/18 05:00 05/19/18 05:00 - Medications Medications: Current Medications Alprazolam (Xanax) 0.5 mg PO HS [facility] Last Admin: 05/18/18 21:27 Dose: 0.5 mg Aspirin (Ecotrin) 81 mg PO DAILY [facility] Last Admin: 05/19/18 08:59 Dose: 81 mg Atorvastatin Calcium (Lipitor) 20 mg PO HS [facility] Last Admin: 05/18/18 21:27 Dose: 20 mg Calcitriol (Rocaltrol) 0.5 mcg PO TTS [facility] Last Admin: 05/18/18 10:15 Dose: 0.5 mcg Cholecalciferol (Vitamin D) 1,000 intlu PO DAILY [facility] Last Admin: 05/19/18 09:02 Dose: 1,000 intlu Cinacalcet (Sensipar) 30 mg PO TTS [facility] Last Admin: 05/18/18 08:05 Dose: 30 mg Clonidine HCl (Catapres) 0.2 mg PO SUMOWEFR [facility] Last Admin: 05/17/18 21:34 Dose: 0.2 mg Clopidogrel Bisulfate (Plavix) 75 mg PO DAILY [facility] Last Admin: 05/19/18 09:01 Dose: 75 mg Famotidine (Pepcid) 20 mg PO HS [facility] Last Admin: 05/18/18 21:27 Dose: 20 mg Glipizide (Glucotrol) 10 mg PO BIDAC [facility] Last Admin: 05/19/18 09:00 Dose: 10 mg Ertapenem 1 gm/ Sodium (Chloride) 100 mls @ 100 mls/hr IVPB DAILY [facility]; Protocol Last Admin: 05/19/18 09:00 Dose: 100 mls/hr Insulin Detemir (Levemir) 5 units SC HS [facility] Last Admin: 05/18/18 22:18 Dose: 5 units Insulin Human Lispro (Humalog) 4 units SC AC [facility] Last Admin: 05/19/18 09:00 Dose: 4 units Lactulose (Enulose) 20 gm PO Q12 PRN PRN Reason: Constipation Metoprolol Succinate (Toprol Xl) 50 mg PO SUMOWEFR [facility] Last Admin: 05/17/18 22:26 Dose: 50 mg Oxycodone/Acetaminophen (Percocet 5/325 Mg Tab) 1 tab PO Q4 PRN PRN Reason: Pain, moderate (4-7) Stop: 05/19/18 22:50 Saccharomyces Boulardii (Florastor) 250 mg PO BID [facility] Last Admin: 05/19/18 08:59 Dose: 250 mg Sertraline HCl (Zoloft) 50 mg PO HS [facility] Last Admin: 05/18/18 21:28 Dose: 50 mg Sevelamer Carbonate (Renvela) 3,200 mg PO TID [facility] Last Admin: 05/19/18 09:01 Dose: 3,200 mg - Labs Labs: 05/19/18 06:00 05/16/18 17:45 - Constitutional Appears: No Acute Distress - Eye Exam Eye Exam: Conjunctival injection - ENT Exam ENT Exam: Mucous Membranes Moist - Neck Exam Neck Exam: absent: Lymphadenopathy - Respiratory Exam Respiratory Exam: NORMAL BREATHING PATTERN. absent: Chest Wall Tenderness, Rhonchi - Cardiovascular Exam Cardiovascular Exam: absent: Gallop, Irregular Rhythm, Rubs - GI/Abdominal Exam GI & Abdominal Exam: Soft, Normal Bowel Sounds - Extremities Exam Extremities Exam: absent: Calf Tenderness - Back Exam Back Exam: absent: CVA tenderness (L), CVA tenderness (R) - Neurological Exam Neurological Exam: Alert - Psychiatric Exam Psychiatric exam: Normal Affect - Skin Skin Exam: absent: Cyanosis Assessment and Plan (1) Osteomyelitis of finger of left hand Status: Acute (2) CKD (chronic kidney disease) requiring chronic dialysis Assessment & Plan: mp: ESRD Cellulitis and possible osteomyelitis of the left fourth tip of the hand Anemia of Renal Disease/ Hyperphosphatemia Hypertensive Kidney disease/ Secondary hyperparathyroid/ Hyperphosphatemia/ hemodialysis TTS Recommendation IV antibiotics as recommended per ID on renvela : continue same continue calcitriol continue epogen continue home bp meds chronic atrial fibrillation with ventricular rate controlled Patient is going to subacute unit for further intravenous antibiotics. Status: Acute
[2018-05-19] MEDS ORDERED: Vancomycin 500 mg (Oral/Rectal USE) PO SCH ×2 (14:48→17:00)
[2018-05-19] MEDS ORDERED: Dextrose 50% SYRINGE Inj (50 ml) ONE (15:48)
[2018-05-19] MEDS ORDERED: Dextrose 50% SYRINGE Inj (50 ml) IVP ONE (15:51)
[2018-05-19 16:31] VITALS: BP 139/77; PULSE 76; TEMP 96.6; O2SAT 96
[2018-05-19] MEDS ORDERED: VANCOMYCIN HCL 50 MG/ML SOLN.RECON PO SCH (17:00)
--- NOTE | 2018-05-20 06:01 | DS ---
REASON FOR ADMISSION: This is a 62-year-old male with history of multiple medical problems who was admitted for infected stump of the left fourth finger. COURSE OF HOSPITALIZATION: The patient was started on IV antibiotics, guided by culture that was done as an outpatient by Dr. Walsh. The patient responded well and I determined to continue IV antibiotics. The patient's stay was complicated with diarrhea, and stool antigen was positive for C. difficile. The patent was started on vancomycin p.o. He is being discharged to subacute rehabilitation to continue the Invanz as per ID recommendations. FINAL DIAGNOSES: 1. Infected stump of the left fourth finger. 2. Possible Clostridium difficile colitis. 3. End-stage renal disease, on hemodialysis. 4. Hypertension. 5. Type 2 diabetes mellitus. [facility]
== END 2018-05-19 17:00 | DRG 564 ==
LOC: H.ER 15:58 → H.ERHOLD 17:34 → H.MEDSURG1 21:40
PROVIDERS: ADMIT Internal Medicine; ATTEND Internal Medicine
PROC: 5A1D70Z Performance of Urinary Filtration, Intermittent, Less than 6 Hours Per Day (ICD-10-PCS; principal; 2018-05-18)
PROC: 02HV33Z Insertion of Infusion Device into Superior Vena Cava, Percutaneous Approach (ICD-10-PCS; 2018-05-19)
DX: T87.42 Infection of amputation stump, left upper extremity (principal); N18.6 End stage renal disease; N25.81 Secondary hyperparathyroidism of renal origin; A04.72 Enterocolitis due to Clostridium difficile, not specified as recurrent; M86.142 Other acute osteomyelitis, left hand; I12.0 Hypertensive chronic kidney disease with stage 5 chronic kidney disease or end stage renal disease; B99.8 Other infectious disease; L03.012 Cellulitis of left finger; Z79.4 Long term (current) use of insulin; Z79.84 Long term (current) use of oral hypoglycemic drugs; Z99.2 Dependence on renal dialysis; E11.40 Type 2 diabetes mellitus with diabetic neuropathy, unspecified; E11.22 Type 2 diabetes mellitus with diabetic chronic kidney disease; E11.65 Type 2 diabetes mellitus with hyperglycemia; E11.319 Type 2 diabetes mellitus with unspecified diabetic retinopathy without macular edema; I48.2 Chronic atrial fibrillation; E11.69 Type 2 diabetes mellitus with other specified complication; E78.00 Pure hypercholesterolemia, unspecified; E83.39 Other disorders of phosphorus metabolism; G47.30 Sleep apnea, unspecified; I25.10 Atherosclerotic heart disease of native coronary artery without angina pectoris; K21.9 Gastro-esophageal reflux disease without esophagitis; M54.10 Radiculopathy, site unspecified; Y83.5 Amputation of limb(s) as the cause of abnormal reaction of the patient, or of later complication, without mention of misadventure at the time of the procedure; Z79.02 Long term (current) use of antithrombotics/antiplatelets; Z79.82 Long term (current) use of aspirin; Z86.010 Personal history of colon polyps; Z86.718 Personal history of other venous thrombosis and embolism; Z86.73 Personal history of transient ischemic attack (TIA), and cerebral infarction without residual deficits; Z87.01 Personal history of pneumonia (recurrent); Z88.0 Allergy status to penicillin; D64.9 Anemia, unspecified; F32.9 Major depressive disorder, single episode, unspecified; F41.9 Anxiety disorder, unspecified; H26.9 Unspecified cataract; K59.00 Constipation, unspecified; M19.90 Unspecified osteoarthritis, unspecified site; R79.89 Other specified abnormal findings of blood chemistry; Z79.899 Other long term (current) drug therapy